=== PATIENT | female | born 1945 | race Caucasian/White ===

== ENCOUNTER 2019-11-27 10:21 | Outpatient (CLI) | payer OTHER, SELFPAY ==
--- NOTE | ~2019-11-27 | CT_ITS ---
EXAMINATION: CT brain wo con DATE: 11/27/2019 10:45 INDICATION: Dizziness. TECHNIQUE: Computed tomography (CT) of the head was performed without intravenous contrast. The mA wa s adjusted according to patient size. Iterative reconstruction technique was employed. The dose-lengt h product was 681.00 mGy-cm. COMPARISON: Head CT 05/07/2010 FINDINGS: There is an old lacunar infarct in left lentiform nucleus. There is no intracranial hemorrh age, acute infarction, or abnormal intracranial mass lesion. The ventricles are normal in size. There are likely changes of ocular lens replacement surgeries. There is mild mucosal thickening in the eth moid sinuses. The mastoid air cells are normal. IMPRESSION: 1. Old lacunar infarct in left lentiform nucleus. Reviewed, dictated and finalized at location B.
--- NOTE | ~2019-11-27 | US_ITS ---
EXAMINATION: US carotid duplex BI DATE: 11/27/2019 10:56 INDICATION: Right carotid bruit TECHNIQUE: Grayscale, color Doppler, and pulsed Doppler images of the cervical carotid arteries were obtained. The degree of vessel stenosis is placed in one of the following categories: normal, <50%, 5 0-69%, >=70% but less than near-occlusion, near-occlusion, or total occlusion. Note that percent sten osis relative to normal distal artery lumen diameter is indirectly measured from velocity measurement s as described by Mo, et al. Radiology 2003; [id number]:340-346. COMPARISON: 06/22/2018 FINDINGS: RIGHT: The right common carotid artery (CCA) peak systolic velocity (PSV) is 77 cm/s. The right internal car otid artery (ICA) PSV is 58 cm/s. The right ICA end-diastolic velocity (EDV) is 11 cm/s. The right IC A/CCA PSV ratio is 0.8. Grayscale and color Doppler images yield an estimate of <50% diameter reducti on from plaque in the ICA. The external carotid artery (ECA) PSV is 61 cm/s. There is antegrade flow in the right vertebral artery. LEFT: The left CCA PSV is 76 cm/s. The left ICA PSV is 58 cm/s. The left ICA EDV is 11 cm/s. The left ICA/C CA PSV ratio is 0.8. Grayscale and color Doppler images yield an estimate of <50% diameter reduction from plaque in the ICA. The ECA PSV is 49 cm/s. There is antegrade flow in the left vertebral artery. IMPRESSION: 1. <50% stenosis in the right internal carotid artery. 2. <50% stenosis in the left internal carotid artery. Reviewed, dictated and finalized at location A.
== END 2019-11-27 10:22 | disposition home or self-care (01) ==
LOC: CHSIMG 10:24
PROVIDERS: PCP Family Medicine; Visit Provider Family Medicine
DX: R42 Dizziness and giddiness (principal); R09.89 Other specified symptoms and signs involving the circulatory and respiratory systems
CPT/HCPCS: 70450; 93880

== ENCOUNTER 2019-11-28 08:55 | Outpatient (CLI) | payer OTHER, SELFPAY ==
--- NOTE | ~2019-11-28 | MR_ITS ---
EXAMINATION: MR brain IAC wo/w con DATE: 11/28/2019 10:22 INDICATION: Dizziness. Headache. TECHNIQUE: Magnetic resonance imaging (MRI) of the brain, brainstem, and internal auditory canals was performed without and with 10 mL MultiHance intravenous contrast. Sequences included sagittal and ax ial T1-weighted FSE, axial diffusion-weighted FS EPI, axial T2*-weighted GRE, axial T2-weighted FLAIR Propeller, and axial T2-weighted Propeller. Postcontrast sequences included axial and coronal T1-samir ghted FSE. Apparent diffusion coefficient (ADC) maps were created. COMPARISON: Head CT 11/27/2019 FINDINGS: There are scattered areas of nonspecific increased T2-weighted signal intensity in the cere bral white matter and ellyn, which is within normal limits for the patient's age. There is an old lacu angy infarct in left lentiform nucleus. There is no intracranial hemorrhage, acute infarction, or abno rmal intracranial mass lesion. The ventricles are normal in size. There are likely changes of ocular lens replacement surgeries. The paranasal sinuses are clear. The mastoid air cells are normal. IMPRESSION: 1. Old lacunar infarct in left lentiform nucleus. Reviewed, dictated and finalized at location B.
[2019-11-28 09:21] LABS: Estimated Glomerular Filt Rate > 60
== END 2019-11-28 08:56 | disposition home or self-care (01) ==
PROVIDERS: PCP Family Medicine; Visit Provider Family Medicine
DX: R42 Dizziness and giddiness (principal); R51 Headache
CPT/HCPCS: 36415; 70553; A9577

== ENCOUNTER 2020-01-12 09:00 | Outpatient (CLI) | payer OTHER, SELFPAY ==
--- NOTE | ~2020-01-12 | US_ITS ---
EXAMINATION: US pelvic complete DATE: 01/12/2020 09:50 INDICATION: Abdominal pain. Bloating. Ascites. TECHNIQUE: Multiple transabdominal sonographic images of the pelvis were obtained. COMPARISON: CT abdomen and pelvis 10/08/2014 FINDINGS: The uterus is absent, and the technologist reports history of hysterectomy. The ovaries are not visua lized. There is no ascites. IMPRESSION: 1. No ascites. 2. Ovaries not visualized. Reviewed, dictated and finalized at location B.
--- NOTE | ~2020-01-12 | US_ITS ---
US abdomen complete DATE: 01/12/2020 09:50 INDICATION: Abdominal pain, bloating. Ascites TECHNIQUE: Real-time imaging of the abdomen, Doppler evaluation COMPARISON: None FINDINGS: No hepatic or pancreatic space-occupying mass lesion is evident. Hepatic steatosis. Normal hepatopedal portal venous flow direction. There is an approximately 8 mm mobile filling defect the gallbladder consistent with stone or sludge concretion. No gallbladder wall thickening. The common bile duct measures 4 mm, within normal limits. The abdominal aorta is obscured by bowel gas. Inferior vena cava is not well demonstrated. Splenic size is within normal range. No renal mass lesion or hydronephrosis is detected. No ascites. IMPRESSION: Sludge concretion or gallstone Reviewed, dictated and finalized at Location A. Reviewed, dictated and finalized at location A.
== END 2020-01-12 09:01 | disposition home or self-care (01) ==
PROVIDERS: PCP Internal Medicine; Visit Provider Internal Medicine
DX: R10.84 Generalized abdominal pain (principal); R10.2 Pelvic and perineal pain
CPT/HCPCS: 76700; 76856

== ENCOUNTER 2020-01-18 08:18 | Outpatient (CLI) | payer OTHER, SELFPAY ==
--- NOTE | ~2020-01-18 | US_ITS ---
EXAMINATION: US venous doppler [facility] DATE: 01/18/2020 09:31 INDICATION: Left lower limb swelling TECHNIQUE: Gerber scale images without and with compression and Doppler images of the left lower extrem ity veins were obtained. COMPARISON: 10/17/2016 FINDINGS: The left common femoral vein, profunda femoral vein, femoral vein, popliteal vein, peroneal trunk, posterior tibial veins, and greater saphenous vein are patent. IMPRESSION: 1. Patent left lower extremity veins. No evidence of deep venous thrombosis. Reviewed, dictated and finalized at location A.
--- NOTE | ~2020-01-18 | XR_ITS ---
EXAMINATION: XR knee LT 3V DATE: 01/18/2020 09:02 INDICATION: Left knee pain. TECHNIQUE: AP, lateral and sunrise views of the left knee were obtained COMPARISON: None. FINDINGS: Alignment is normal. No fracture. Subtle chondrocalcinosis at the medial and lateral compartments. T here is mild joint space narrowing at the medial compartment. Small to moderate size marginal osteoph ytes without significant joint space narrowing at the patellofemoral compartment. Moderate-sized left knee joint effusion without layering lipohemarthrosis. Several surgical clips at the posterior media l aspect of the distal left thigh. Linear pattern of likely enthesopathic calcification extending reta ng the tendon at the femoral attachment of the medial head of the gastrocnemius. IMPRESSION: 1. Chondrocalcinosis with mild medial and patellofemoral osteoarthritis. No acute osseous abnormality . 2. Moderate-sized left knee joint effusion. Reviewed, dictated and finalized at location B. IMPRESSION: 1. Chondrocalcinosis with mild medial and patellofemoral osteoarthritis. No acu te osseous abnormality. 2. Moderate-sized left knee joint effusion.
== END 2020-01-18 08:19 | disposition home or self-care (01) ==
PROVIDERS: PCP Internal Medicine; Visit Provider Internal Medicine
DX: M79.89 Other specified soft tissue disorders (principal); M79.662 Pain in left lower leg; M25.562 Pain in left knee
CPT/HCPCS: 73562; 93971

== ENCOUNTER 2020-05-15 18:38 | Outpatient (CLI) | payer OTHER, SELFPAY ==
--- NOTE | ~2020-05-15 | XR_ITS ---
EXAMINATION: XR femur LT min 2V DATE: 05/15/2020 19:22 INDICATION: Chronic left hip and femoral pain. TECHNIQUE: Overlapping proximal and distal, AP and lateral views of the left femur were obtained. COMPARISON: None FINDINGS: Alignment is normal. No fracture. Minimal left hip osteoarthritis with tiny marginal osteophytes at the femoral head and acetabulum but with relatively preserved joint space. Moderate joint space narro wing the medial compartment of the left knee with small marginal osteophytes in all 3 compartments. I nterval decrease in size of a now small left knee joint effusion. Curvilinear pattern of likely enthe sopathic calcification extending along the tendon at the femoral insertion of the medial head of the gastrocnemius. Multiple surgical clips along the posterior medial aspect of the left thigh. IMPRESSION: 1. Mild to moderate medial compartment predominant tricompartmental osteoarthritis of the left knee w ith decrease in size of a now small left knee joint effusion. 2. Minimal left hip osteoarthritis. Reviewed, dictated and finalized at location A. 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 Mild to moderate medial compartment predominant tricompartmental osteoarthri tis of the left knee with decrease in size of a now small left knee joint effus ion. 2. Minimal left hip osteoarthritis.
== END 2020-05-15 18:39 | disposition home or self-care (01) ==
LOC: CHSIMG 18:40
PROVIDERS: PCP Internal Medicine; Visit Provider Internal Medicine
DX: M25.552 Pain in left hip (principal); M79.652 Pain in left thigh
CPT/HCPCS: 73552

== ENCOUNTER 2020-07-16 07:09 | Outpatient (CLI) | payer OTHER, SELFPAY ==
--- NOTE | ~2020-07-16 | CT_ITS ---
EXAMINATION: CT abdomen pelvis w con INDICATION: Diarrhea, diffuse abdominal pain TECHNIQUE: Computed tomographic images of the abdomen and pelvis were obtained after the administrati on of 100 cc of Omnipaque 350 intravenous contrast. The dose-length product (DLP) was 783.59 mGy-cm. Automated exposure control and iterative reconstruction technique were employed. COMPARISON: 10/08/2014 FINDINGS: Minimal dependent atelectasis is present in the lung bases. The heart size is enlarged. The re is a small sliding hiatal hernia. The gallbladder is surgically absent. There is mild enlargement of the common bile duct and central intrahepatic ducts which is likely due to post cholecystectomy st ate. The liver is diffusely low in attenuation when compared with the spleen, consistent with hepatic steatosis. The spleen, pancreas, and adrenal glands are normal. The kidneys are unremarkable. There is calcified atherosclerosis of the aorta and many of the other arteries. No pathologically enlarged abdominal or pelvic lymph nodes are identified. There is no free intraperitoneal gas or evidence of b owel obstruction. The appendix is normal. No specific bowel findings are identified to account for th e patient's symptoms. There is severe thoracic and lumbar spondylosis. There are changes of posterior fusion at L5-S1 with grade 1 anterolisthesis of L5 on S1. IMPRESSION: 1. No CT correlate for the patient's symptoms. Reviewed, dictated and finalized at location B.
== END 2020-07-16 07:10 | disposition home or self-care (01) ==
LOC: CHSIMG 07:10
PROVIDERS: PCP Internal Medicine; Visit Provider Internal Medicine
DX: R10.9 Unspecified abdominal pain (principal)
CPT/HCPCS: 74177; Q9967

== ENCOUNTER 2020-09-03 11:56 | Outpatient (CLI) | payer OTHER, SELFPAY ==
[2020-09-03 12:13] LABS: Basophils Absolute Auto 0.07 K/mm3 (0.00-0.10); Eosinophils Absolute Auto 0.18 K/mm3 (0.02-0.50); Eosinophils Percent Auto 2.5 % (1.0-6.0); Hematocrit 44.8 % (35.0-42.0); Hemoglobin 14.6 g/dL (11.7-13.8); Immature Granulocyte Absolute 0.02 K/mm3 (0.00-0.00); Immature Granulocyte Percent A 0.3 % (0.0-0.0); Lymphocytes Absolute Auto 1.74 K/mm3 (1.10-4.50); Lymphocytes Percent Auto 24.2 % (18.0-42.0); Mean Corpuscular HGB Conc 32.6 g/dL (32.0-36.0); Mean Corpuscular Volume 95.1 fL (78.0-102.0); Mean Platelet Volume 11.3 fl (9.2-11.8); Monocytes Absolute Auto 0.67 K/mm3 (0.10-0.90); Monocytes Percent Auto 9.3 % (2.0-11.0); Neutrophils Absolute Auto 4.5 K/mm3 (1.7-7.2); Neutrophils Percent Auto 62.7 % (50.0-70.0); Platelet Count Result 243 K/mm3 (150-420); Red Blood Count 4.71 M/mm3 (4.20-5.40); White Blood Count 7.2 K/mm3 (4.8-10.8)
[2020-09-03 12:27] LABS: Add Urine Microscopic? YES; Appearance Urine Clear (Clear); Bilirubin Urine Negative (Negative); Blood Urine Negative (Negative); Color Urine Yellow (Yellow); Glucose Urine UA Negative (Negative); Ketones Urine Negative (Negative); Leukocyte Esterase Ur 1+ (Negative); Nitrate Urine Negative (Negative); Protein Urine Negative (Negative); Specific Grav Ur 1.025 (1.010-1.020); Urobilinogen Urine 0.2 mg/dL (0.2-1.0); pH Urine 5.5 (5.0-8.0)
[2020-09-03 12:35] LABS: RBC Urine None seen /hpf (0-2); Squamous Epithelial Cell Urine Few /hpf (Few)
[2020-09-03 12:36] LABS: Bacteria Urine Trace /hpf
[2020-09-03 12:49] LABS: Hemoglobin A1C 8.9 % (<5.7)
[2020-09-03 13:07] LABS: Alanine Aminotransferase 24 U/L (14-59); Albumin Level 3.6 g/dL (3.4-5.0); Alkaline Phosphatase 61 U/L (46-116); Amylase 80 U/L (25-115); Anion Gap 7 mmol/L (8-16); Aspartate Amino Transferase 17 U/L (15-37); Bilirubin,Total 0.3 mg/dL (0.00-1.00); Blood Urea Nitrogen 40 mg/dL (7-18); Calcium 9.2 mg/dL (8.5-10.1); Carbon Dioxide 29 mmol/L (21-32); Chloride 103 mmol/L (98-108); Estimated Glomerular Filt Rate 44; Glucose 100 mg/dL (70-99); Lipase 187 U/L (73-393); Osmolality Calculated 297 mOsm/kg (285-295); Potassium 4.9 mmol/L (3.5-5.1); Sodium 139 mmol/L (136-145); Total Protein 6.7 g/dL (6.4-8.2)
== END 2020-09-03 11:57 | disposition home or self-care (01) ==
LOC: CHSLAB 11:57
PROVIDERS: PCP Internal Medicine; Visit Provider Internal Medicine
DX: N39.0 Urinary tract infection, site not specified (principal); R53.83 Other fatigue; R11.0 Nausea; E11.9 Type 2 diabetes mellitus without complications
CPT/HCPCS: 36415; 80053; 81001; 82150; 83036; 83690; 85025; 87086; 87088

== ENCOUNTER 2020-09-06 09:40 | Outpatient (CLI) | payer OTHER, SELFPAY ==
[2020-09-06 09:59] LABS: Add Urine Microscopic? NO; Appearance Urine Clear (Clear); Bilirubin Urine Negative (Negative); Blood Urine Negative (Negative); Color Urine Yellow (Yellow); Glucose Urine UA Negative (Negative); Ketones Urine Negative (Negative); Leukocyte Esterase Ur Negative (Negative); Nitrate Urine Negative (Negative); Protein Urine Negative (Negative); Specific Grav Ur >= 1.030 (1.010-1.020); Urobilinogen Urine 0.2 mg/dL (0.2-1.0); pH Urine 5.5 (5.0-8.0)
[2020-09-06 10:30] LABS: Anion Gap 10 mmol/L (8-16); Blood Urea Nitrogen 22 mg/dL (7-18); Calcium 8.8 mg/dL (8.5-10.1); Carbon Dioxide 25 mmol/L (21-32); Chloride 104 mmol/L (98-108); Estimated Glomerular Filt Rate > 60; Glucose 148 mg/dL (70-99); Osmolality Calculated 294 mOsm/kg (285-295); Sodium 139 mmol/L (136-145)
[2020-09-06 10:31] LABS: Potassium 5.4 mmol/L (3.5-5.1)
== END 2020-09-06 09:41 | disposition home or self-care (01) ==
LOC: CHSLAB 09:42
PROVIDERS: PCP Internal Medicine; Visit Provider Internal Medicine
DX: E86.0 Dehydration (principal); N39.0 Urinary tract infection, site not specified
CPT/HCPCS: 36415; 80048; 81003; 87086

== ENCOUNTER → 2020-09-30 16:08 | Outpatient (CLI) | payer OTHER, SELFPAY ==
--- NOTE | ~2020-09-30 | MM_ITS ---
EXAMINATION: MM screening [facility] BI w edmund HISTORY: Screening TECHNIQUE: Craniocaudal and mediolateral oblique 3-D tomosynthesis images were obtained and synthetic 2-D images were generated. CAD analysis was submitted and interpreted. COMPARISON: Comparison to multiple prior studies sequentially, with oldest reviewed study dated 07/2011. BREAST PARENCHYMAL COMPOSITION: There are scattered areas of fibroglandular density. FINDINGS: There is no evidence of suspicious mass, calcification, or architectural distortion to sugg est malignancy in either breast. There has been no suspicious interval change. IMPRESSION: 1. No mammographic evidence of malignancy. 2. Recommend routine screening mammography in one year. BI-RADS Category 1: Negative Reviewed, dictated and finalized at location A.
== END ==
PROVIDERS: Visit Provider Obstetrics & Gynecology
DX: Z12.31 Encounter for screening mammogram for malignant neoplasm of breast (principal)
CPT/HCPCS: 77063; 77067

== ENCOUNTER 2021-03-21 11:34 | Outpatient (CLI) | payer OTHER, SELFPAY ==
--- NOTE | ~2021-03-21 | XR_ITS ---
XR hip BI 2V w AP pelvis DATE: 03/21/2021 11:59 INDICATION: Fall. Bilateral hip pain, lower back pain. Coccyx injury. TECHNIQUE: AP pelvis. AP and lateral views of each hip COMPARISON: None FINDINGS: Pedicle screws are noted bilaterally in the L5-S1 area, including fractured mildly displace d right L1 pedicle screw. The pubic symphysis and sacroiliac joints are intact. There is bilateral hip osteoarthritis, greater on the right. No pelvic fracture is detected. No bone destruction is evident. There is chondrocalcinosis at the right hip joint. No fracture or dislocation, avascular necrosis or bone destruction of either hip is detected. IMPRESSION: Status post bilateral posterior fusion at L5-S1; fractured right S1 pedicle screw Bilateral hip osteoarthritis, right greater than left Chondrocalcinosis of right hip joint No pelvic fracture or fracture or dislocation of either hip Reviewed, dictated and finalized at location A. 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
== END 2021-03-21 11:35 | disposition home or self-care (01) ==
LOC: CHSIMG 11:36
PROVIDERS: PCP Internal Medicine; Visit Provider Nurse Practitioner Family
DX: M54.50 Low back pain, unspecified (principal); M25.552 Pain in left hip; M25.551 Pain in right hip; S39.92XA Unspecified injury of lower back, initial encounter
CPT/HCPCS: 73521

== ENCOUNTER 2021-04-18 10:53 | Outpatient (CLI) | payer OTHER, SELFPAY ==
--- NOTE | ~2021-04-18 | US_ITS ---
EXAMINATION: US venous doppler [facility] EXAM DATE: 04/18/2021 11:18 INDICATION: Left leg edema/pain . TECHNIQUE: Multiple grayscale, color flow and Doppler images of the left lower extremity deep venous system were obtained and reviewed. Comparison is made to prior examination from 01/18/2020. FINDINGS: The left common femoral, femoral and profunda veins demonstrate normal color flow, respirat ory variation, augmentation and compressibility. Compressibility, color flow confirmed within the le ft popliteal, posterior tibial, peroneal, and greater saphenous veins. Anechoic popliteal fossa sharee on without color flow, probably a Adamson's cyst measuring 2.9 x 1.0 x 2.6 cm. IMPRESSION: 1. No left lower extremity deep venous thrombosis. 2. Probable small Adamson's cyst. Reviewed, dictated and finalized at location A. PRACTITIONER
== END 2021-04-18 10:54 | disposition home or self-care (01) ==
LOC: CHSIMG 10:55
PROVIDERS: PCP Internal Medicine; Visit Provider Internal Medicine
DX: R60.9 Edema, unspecified (principal); M79.605 Pain in left leg
CPT/HCPCS: 93971

== ENCOUNTER → 2021-06-13 14:19 | Outpatient (CLI) | payer OTHER, SELFPAY ==
--- NOTE | ~2021-06-13 | MM_ITS ---
EXAMINATION: MM diagnostic [facility] LT w edmund HISTORY: Left breast pain TECHNIQUE: Additional 3-D tomosynthesis images of the left breast were performed and synthetic 2-D im ages were generated. CAD analysis was submitted and interpreted. COMPARISON: Comparison to multiple prior studies sequentially, with oldest reviewed study dated 02/03. BREAST PARENCHYMAL COMPOSITION: Breast composed of scattered areas of fibroglandular density. FINDINGS: There are no suspicious masses, calcifications or architectural distortion to suggest malig viji. IMPRESSION: 1. No mammographic evidence for malignancy in the left breast. 2. Routine yearly screening mammogram and regular clinical breast examination are recommended. BI-RADS Category 1: Negative Reviewed, dictated and finalized at location A. 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 No mammographic evidence for malignancy in the left breast. 2. Routine yearly screening mammogram and regular clinical breast examination a re recommended. BI-RADS Category 1: Negative
== END ==
PROVIDERS: Visit Provider Obstetrics & Gynecology
DX: N64.4 Mastodynia (principal)
CPT/HCPCS: 77061; 77065; G0279

== ENCOUNTER 2021-07-16 06:35 | Emergency (ER) | payer OTHER, SELFPAY ==
--- NOTE | ~2021-07-16 | CT_ITS ---
EXAMINATION: CT lumbar spine wo con DATE: 07/16/2021 07:42 INDICATION: Left buttock pain radiating to the left hip and leg TECHNIQUE: Computed tomography (CT) of the lumbar spine was performed without intravenous contrast. T he dose-length product (DLP) was 1443.62 mGy-cm. Iterative reconstruction was used. COMPARISON: 07/16/2020 FINDINGS: There are changes of posterior fusion at L5-S1 with 10 mm of unchanged anterolisthesis of L 5 on S1. The right S1 screw is fractured. There are also 5 mm of unchanged anterolisthesis of L4 on L 5. There is unchanged severe loss of intervertebral disc space height at L5-S1 and moderate loss of d isc space height throughout the remainder of the lumbar spine. The vertebral body heights are maintai aydee. There is sclerosis at the S3 and S4 levels. IMPRESSION: 1. Severe lumbar spondylosis. 2. Sclerosis at the level of S3 and S4 suggestive of healing fracture. Correlate for history of traum a. Reviewed, dictated and finalized at location A. IMPRESSION: 1. Severe lumbar spondylosis. 2. Sclerosis at the level of S3 and S4 suggestive of healing fracture. Correlat e for history of trauma.
[2021-07-16 07:06] VITALS: BP 140/43; PULSE 61; RESP 20; TEMP 36.8; O2SAT 92
--- NOTE | 2021-07-16 07:18 | PC.NURSE ---
nurse to nurse report to KAYDEN Hernandez
--- NOTE | 2021-07-16 07:29 | ED.BACK ---
HPI - Back Pain/Injury General Chief Complaint: Back Pain/Injury Stated Complaint: L SIDED PAIN Time Seen by Provider: 07/16/21 07:03 Source: patient, RN notes reviewed and old records reviewed Mode of arrival: ambulatory Limitations: no limitations History of Present Illness MD elicited complaint: back pain Pertinent past history: prior back pain and other (and sciatic nerve problem in the past.) Onset (ago): hour(s) (12) Severity: severe Pain scale (0-10): 10 Similar Symptoms Previously: No Quality: dull and aching Location: lumbar spine and left lower back Radiation: groin and buttocks Exacerbating factors: movement Relieving factors: immobilization Associated symptoms: denies other symptoms Treatments prior to arrival: other medications Related Data Home Medications Medication Instructions Recorded Confirmed aspirin 81 mg PO DAILY 07/16/21 07/16/21 calcitriol 0.5 mcg PO DAILY 07/16/21 07/16/21 carvedilol 25 mg PO BID 07/16/21 07/16/21 coenzyme Q10 25 mg PO DAILY 07/16/21 07/16/21 enalapril maleate 10 mg PO DAILY 07/16/21 07/16/21 gabapentin 300 mg PO TID 07/16/21 07/16/21 insulin aspart U-100 [Novolog 20 unit SUBCUT DIRECTED 07/16/21 07/16/21 Flexpen U-100 Insulin] insulin detemir U-100 [Levemir 50 unit SUBCUT HS 07/16/21 07/16/21 FlexTouch U-100 Insuln] pantoprazole 40 mg PO DAILY 07/16/21 07/16/21 rosuvastatin 10 mg PO DAILY 07/16/21 07/16/21 Allergies Allergy/AdvReac Type Severity Reaction Status Date / Time empagliflozin Allergy Unknown Verified 11/30/19 09:24 Review of Systems Review of Systems: All systems reviewed & are unremarkable except as noted in HPI and below PMFSH Past Medical History Medical History 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 Surgical History Surgical History Previous back surgery Social History Social History Smoking status: Former smoker Alcohol intake: never Exam Const: General: no acute distress and alert Nutritional Appearance: well nourished Orientation/consciousness: patient oriented x3 Limitations: no limitations HENMT: Head: normal to inspection Ears: external ears normal, TM's normal bilaterally and EAC's normal General nose exam: Normal external nose present and Normal nares present Face and sinus: normal facial exam and sinuses nontender Mouth: Yes lip normal and Yes moist mucous membranes Eyes: Conjunctivae: conjunctivae normal Pupils: Equal, round and reactive pupils present EOM: EOMs intact bilaterally Neck: Neck: normal visual inspection and no lymphadenopathy Chest: Chest palpation & inspection: normal inspection of the chest Resp: Effort & Inspection: normal respiratory effort Auscultation: clear to auscultation bilaterally Cardio: Rate: regular rate Rhythm: regular rhythm GI: GI Palp: Yes Soft to palpation and No Tenderness to palpation present (GI) Auscultation: normal bowel sounds : General: Yes bladder normal to palpation and Yes no CVA tenderness Back/Spine/Pelvis: Back: no CVA tenderness Skin: General skin exam: normal color Rashes: no rashes Neuro: General: patient oriented x3, moves all extremities, no meningeal signs, no focal motor deficits and CN's II-XI intact bilaterally Extrem: General: normal to inspection and no pedal edema Other: minimally tender left upper and lateral buttock on deep palpation. Psych: Appearance: grossly normal and well kempt Mental Status: mental status grossly normal Affect: normal affect Attitude: cooperative Thought content: Yes Normal thought content present Course Course Emergency Course: pt was stable in the ED. less painful. Reevaluation(s) Date: 07/16/21 Time: 08:01 Vital Signs Vital signs: Vital Signs Temperature 36.8 C 07/16/21 07:06 Pulse Rate 61 07/16/21 07:06 Respira
[2021-07-16] MEDS: KETOROLAC (*BKC) 60 MG/2 ML VIAL IM (07:32)
[2021-07-16 08:00] LABS: Appearance Urine Clear (Clear); Bilirubin Urine Negative (Negative); Color Urine Light Yellow (Yellow); Glucose Urine UA Trace (Negative); Ketones Urine Negative (Negative); Leukocyte Esterase Ur Negative (Negative); Nitrate Urine Negative (Negative); Protein Urine Negative (Negative); Specific Grav Ur >= 1.030 (1.010-1.020); Urobilinogen Urine 0.2 mg/dL (0.2-1.0)
[2021-07-16 08:06] LABS: Add Urine Microscopic? YES; Blood Urine Trace-Intact (Negative)
[2021-07-16 08:07] LABS: Bacteria Urine None seen /hpf; RBC Urine 0-2 /hpf (0-2); Squamous Epithelial Cell Urine Rare /hpf (Few); WBC Urine 0-3 /hpf (0-3)
[2021-07-16 08:08] LABS: Mucus Urine Few /lpf
[2021-07-16 08:35] VITALS: BP 136/49; PULSE 56; RESP 20; TEMP 36.6; O2SAT 96
== END 2021-07-16 08:54 | disposition home or self-care (01) ==
PROVIDERS: Emergency Medicine; Emergency Provider Internal Medicine Critical Care Medicine; PCP Internal Medicine
DX: M54.32 Sciatica, left side (principal)
CPT/HCPCS: 72131; 81001; 96372; 99284; J1885

== ENCOUNTER 2021-11-11 14:03 | Outpatient (CLI) | payer OTHER, SELFPAY ==
--- NOTE | ~2021-11-11 | XR_ITS ---
XR pelvis 1-2V DATE: 11/11/2021 14:42 INDICATION: Lower back pain, tailbone pain, pelvic pain. TECHNIQUE: AP pelvis COMPARISON: 03/21/[address] bilateral hips [address] abdomen pelvis FINDINGS: Pedicle screws are noted bilaterally at L5-S1, with chronic fracture of right S1 pedicle sc rew. Severe degenerative disease at L5-S1. Anterolisthesis at L4-5 and L5-S1 demonstrate on 07/16/2020 CT abdomen pelvis examination. No pelvic fracture or bone destruction. The pubic symphysis and sacroiliac joints are intact. IMPRESSION: No pelvic fracture detected Chronic postoperative change at L5-S1 with chronic right S1 pedicle screw fracture L4-5 and L5-S1 anterolisthesis and degenerative disc disease Reviewed, dictated and finalized at location B. IMPRESSION: No pelvic fracture detected Chronic postoperative change at L5-S1 with chronic right S1 pedicle screw fract ure L4-5 and L5-S1 anterolisthesis and degenerative disc disease
== END 2021-11-11 14:04 | disposition home or self-care (01) ==
LOC: CHSIMG 14:05
PROVIDERS: PCP Internal Medicine; Visit Provider Nurse Practitioner Family
DX: M54.50 Low back pain, unspecified (principal); R10.2 Pelvic and perineal pain; M53.3 Sacrococcygeal disorders, not elsewhere classified
CPT/HCPCS: 72170

== ENCOUNTER → 2021-12-15 15:41 | Outpatient (CLI) | payer OTHER, SELFPAY ==
--- NOTE | ~2021-12-15 | MM_ITS ---
EXAMINATION: MM screening [facility] BI w edmund HISTORY: Screening mammogram TECHNIQUE: Craniocaudal and mediolateral oblique 3-D tomosynthesis images were obtained and synthetic 2-D images were generated. CAD analysis was submitted and interpreted. COMPARISON: 06/13/2021 diagnostic left mammogram 09/30/2020, 02/24/2017 bilateral screening mammogram examinations BREAST PARENCHYMAL COMPOSITION: The breasts are almost entirely fatty. FINDINGS: There is no evidence of suspicious mass, calcification, or architectural distortion to sugg est malignancy in either breast. There has been no suspicious interval change. IMPRESSION: 1. No mammographic evidence of malignancy. 2. Recommend routine screening mammography in one year. BI-RADS Category 1: Negative Reviewed, dictated and finalized at location A.
== END ==
PROVIDERS: PCP Internal Medicine; Visit Provider Obstetrics & Gynecology
DX: Z12.31 Encounter for screening mammogram for malignant neoplasm of breast (principal)
CPT/HCPCS: 77063; 77067

== ENCOUNTER 2022-01-31 08:34 | Outpatient (CLI) | payer OTHER, SELFPAY ==
--- NOTE | ~2022-01-31 | MR_ITS ---
EXAMINATION: MR lumbar spine wo con DATE: 01/31/2022 09:38 INDICATION: Low back pain. Fall. TECHNIQUE: Magnetic resonance imaging (MRI) of the lumbar spine was performed without intravenous con trast. COMPARISON: CT lumbar spine 07/16/2021 FINDINGS: There is 9 degrees levocurvature of thoracolumbar spine. There is 4 mm anterolisthesis of L 4 on L5 and 7 mm anterolisthesis of L5 on S1. There are changes of posterior fusion procedure at L5-S 1 with pedicle screws. Vertebral body heights are normal. There is moderately decreased disc height a t L1-L2 and L2-L3, mildly decreased disc height at L3-L4 and L4-L5, and severely decreased disc heigh t at L5-S1. There is mild chronic height loss of L5 vertebral body posteriorly. The following disc le vels are specifically discussed: L1-L2: The disc is bulging. There is mild bilateral facet joint osteoarthritis. There is mild bilater al neural foraminal stenosis. There is mild central canal stenosis. L2-L3: The disc is bulging. There is moderate right and mild left facet joint osteoarthritis. There i s mild bilateral neural foraminal stenosis. There is mild central canal stenosis. L3-L4: The disc is bulging. There is moderate bilateral facet joint osteoarthritis. There is mild esdras ateral neural foraminal stenosis. There is mild central canal stenosis. L4-L5: The disc is bulging. There is severe bilateral facet joint osteoarthritis. There is mild bilat eral neural foraminal stenosis. There is mild central canal stenosis. L5-S1: The disc does not extend beyond the endplate margin. There is moderate bilateral facet joint h ypertrophy. There is mild right and moderate left neural foraminal stenosis. There is no central martir l stenosis. IMPRESSION: 1. Stable severe lumbar spondylosis. 2. Posterior fusion procedure at L5-S1. Reviewed, dictated and finalized at location A.
== END 2022-01-31 08:35 | disposition home or self-care (01) ==
LOC: CHSIMG 08:35
PROVIDERS: PCP Internal Medicine; Visit Provider Internal Medicine
DX: M54.50 Low back pain, unspecified (principal)
CPT/HCPCS: 72148

== ENCOUNTER 2022-08-22 20:08 | Emergency (ER) | payer OTHER, SELFPAY ==
[2022-08-22] VITALS (11 sets, daily range): BP systolic 127–160; BP diastolic 51–64; PULSE 65–78; RESP 14–18; TEMP 36; O2SAT 92–95
--- NOTE | ~2022-08-22 | XR_ITS ---
EXAMINATION: XR chest 1V portable Exam Date/Time: 08/22/2022 20:50 CDT HISTORY: weakness WITH DIFFICULTY HAVING BOWEL MOVEMENT Comparison: 10/15/2016. RESULT: Lines, tubes, and devices: Surgical clips in the mediastinum and left upper quadrant. Median sternot vernon wires. The inferior wire appears to be fractured but is grossly stable in position. Lungs and pleura: Streaky bibasilar scar/atelectasis, otherwise clear. Cardiomediastinal silhouette: Stable. Other: No acute osseous or upper abdominal finding. IMPRESSION: No acute cardiopulmonary process. Reviewed, dictated and finalized at location K.
[2022-08-22] MEDS: ONDANSETRON INJ 4 MG/2 ML VIAL IV PUSH (21:33)
[2022-08-22] MEDS: SODIUM CHLORIDE 0.9% IV 1,000 ML 999 ML IV CONT (21:33)
[2022-08-22 21:36] LABS: Basophils Absolute Auto 0.1 K/mm3 (0.0-0.1); Basophils Percent Auto 0.4 % (0.2-1.2); Eosinophils Absolute Auto 0.4 K/mm3 (0-0.3); Eosinophils Percent Auto 2.8 % (0-4.4); Hematocrit 40.9 % (37.0-47.0); Hemoglobin 13.4 g/dL (12.0-15.0); Immature Granulocyte Absolute 0.03 K/mm3 (0.00-0.031); Immature Granulocyte Percent A 0.2 % (0-0.5); Lymphocytes Percent Auto 4.6 % (18.3-44.2); Mean Corpuscular HGB Conc 32.8 g/dl (32-36); Mean Corpuscular Hemoglobin 31.8 pg (26-34); Mean Corpuscular Volume 96.9 fl (80-100); Mean Platelet Volume 11.3 fl (7.4-10.4); Monocytes Absolute Auto 1.1 K/mm3 (0.1-0.6); Monocytes Percent Auto 8.2 % (2.6-8.5); Neutrophils Absolute Auto 10.9 K/mm3 (1.3-6.7); Neutrophils Percent Auto 83.8 % (45.5-73.1); Platelet Count Result 238 k/mm3 (150-375); Red Blood Count 4.22 M/mm3 (4.2-5.4); Red Cell Distribution Width 12.7 % (11.5-14.5)
[2022-08-22 21:45] LABS: Magnesium 1.4 mg/dL (1.6-2.3)
[2022-08-22 21:46] LABS: Alanine Aminotransferase 21 U/L (6-35); Albumin Level 4.5 g/dL (3.5-5.1); Alkaline Phosphatase 60 U/L (38-126); Anion Gap 9 mmol/L (8-16); Aspartate Amino Transferase 22 U/L (14-36); Bilirubin,Total 0.9 mg/dL (0.2-1.3); Blood Urea Nitrogen 20 mg/dL (7-17); Calcium 9.6 mg/dL (8.4-10.2); Carbon Dioxide 30 mmol/L (22-30); Chloride 98 mmol/L (98-107); Estimated CRCL calculation 60 ml/min; Estimated Glomerular Filt Rate > 60; Glucose 316 mg/dL (65-110); Lactic Acid Reflex 1.7 mmol/L (0.7-2.0); Lipase 68 U/L (23-300); Potassium 4.4 mmol/L (3.4-5.0); Sodium 137 mmol/L (137-145)
[2022-08-22 21:57] LABS: Troponin I < 0.012 ng/mL (0.000-0.034)
[2022-08-22] MEDS: MAGNESIUM SULF 2 GM/WATER 50ML 2 GM/50 ML BAG IVPB (22:15)
--- NOTE | 2022-08-22 23:38 | ED.GENADULT ---
HPI - General Adult General Chief complaint: Nausea/Vomiting/Diarrhea Stated complaint: weakness/n/v Time Seen by Provider: 08/22/22 20:11 History of Present Illness HPI narrative: Patient 77-year-old female who presents emergency department with chief complaint of nausea and vomiting. Patient reports that this evening she started having episodes of nausea and vomiting and recently was in the hospital and had placement of her left knee at [facility]. Patient denies fever denies chest pain denies shortness of breath denies localizing abdominal pain. Patient reports she has been constipated but did have a bowel movement prior to coming to the emergency department. Related Data Home Medications Medication Instructions Recorded Confirmed aspirin 81 mg capsule 81 mg PO DAILY 07/16/21 05/29/22 calcitriol 0.5 mcg capsule 0.5 mcg PO DAILY 07/16/21 05/29/22 carvedilol 25 mg tablet 25 mg PO BID 07/16/21 05/29/22 coenzyme Q10 25 mg tablet 25 mg PO DAILY 07/16/21 05/29/22 enalapril maleate 10 mg tablet 10 mg PO DAILY 07/16/21 05/29/22 gabapentin 300 mg capsule 300 mg PO TID 07/16/21 05/29/22 pantoprazole 40 mg tablet,delayed 40 mg PO DAILY 07/16/21 05/29/22 release rosuvastatin 10 mg tablet 10 mg PO DAILY 07/16/21 05/29/22 insulin aspart U-100 100 unit/mL 25 unit subcut DIRECTED 05/29/22 05/29/22 (3 mL) subcutaneous pen (Novolog FlexPen U-100 Insulin aspart) Allergies Allergy/AdvReac Type Severity Reaction Status Date / Time No Known Allergies Allergy Verified 08/22/22 20:14 Review of Systems Review of Systems: A 10 system review of systems was completed on the patient and is negative except for what is stated in the HPI. Nursing and ancillary documentation was reviewed. 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 Varicose veins of left leg with edema Surgical History Surgical History History of vein stripping Hx of CABG CABG twice Previous back surgery S/P RADHA-BSO (total abdominal hysterectomy and bilateral salpingo-oophorectomy) Family History Family History Mother History of stroke Other Diabetes mellitus Social History Social History Social History: Smoking status: Former smoker Alcohol intake: never Substance use: never Substance use type: does not use Lack of Transportation: No Lack of Food: Never True Current Housing: I Have Housing Concerned About Future Housing: No Difficulty Paying Gas/Electric Bills: No Difficulty Paying for Meds: No Currently Unemployed: No Education: High School Diploma/GED Difficulty w/ Childcare or Family Care: No Living arrangements: with family Occupation/Education: retired Gender identity (if verbalized by the patient): Female Sexual Orientation (if Verbalized by the Patient): Straight or Heterosexual Spiritual care concerns: No Agree to blood products: Yes Exam Narrative: GENERAL: Well-appearing, well-nourished, and in no acute distress. HEAD: Normocephalic, atraumatic. EYES: PERRLA and EOMI. ENT: Nares clear, no rhinorrhea or epistaxis. Mucous membranes moist. NECK: Supple. CHEST: Clear to auscultation. No respiratory distress. HEART: Regular rate and rhythm. No murmur heard. Normal peripheral pulses. ABDOMEN: Soft, nontender, nondistended, normal active bowel sounds. EXTREMITIES: Normal range of motion. No edema. SKIN:
[2022-08-22 23:50] LABS: Troponin I < 0.012 ng/mL (0.000-0.034)
[2022-08-22 23:58] LABS: Appearance Urine Clear (Clear); Bacteria Urine None Seen /hpf; Bilirubin Urine Negative (Negative); Blood Urine Negative (Negative); Color Urine Yellow (Yellow); Glucose Urine UA 3+ mg/dL (Negative); Ketones Urine 1+ mg/dL (Negative); Leukocyte Esterase Ur Negative LEU/UL (Negative); Need Manual Microscopic Reviewed; Nitrate Urine Negative (Negative); Protein Urine 1+ mg/dL (Negative); RBC Urine 0-2 /hpf (0-2); Specific Grav Ur 1.025 (1.001-1.035); Squamous Epithelial Cell Urine None seen /hpf (Few)
[2022-08-23] LABS: Add Urine Microscopic? YES
== END 2022-08-23 00:15 | disposition home or self-care (01) ==
PROVIDERS: Emergency Provider Emergency Medicine; PCP Family Medicine
DX: N39.0 Urinary tract infection, site not specified (principal); E83.42 Hypomagnesemia; R11.2 Nausea with vomiting, unspecified; I10 Essential (primary) hypertension; I25.10 Atherosclerotic heart disease of native coronary artery without angina pectoris; I25.5 Ischemic cardiomyopathy; I25.2 Old myocardial infarction; E11.319 Type 2 diabetes mellitus with unspecified diabetic retinopathy without macular edema; E11.40 Type 2 diabetes mellitus with diabetic neuropathy, unspecified; E78.5 Hyperlipidemia, unspecified; Z95.1 Presence of aortocoronary bypass graft; Z87.891 Personal history of nicotine dependence; Z79.82 Long term (current) use of aspirin; Z79.4 Long term (current) use of insulin
CPT/HCPCS: 36415; 71045; 80053; 81001; 83605; 83690; 83735; 84484; 85025; 87077; 87086; 87186; 96361; 96365; 96375; 99284; J2405; J3475; J7030

== ENCOUNTER 2023-02-18 21:38 | Emergency (ER) | payer OTHER, SELFPAY ==
--- NOTE | ~2023-02-18 | XR_ITS ---
EXAMINATION: XR tibia fibula RT 2V DATE: 02/18/2023 22:20 INDICATION: Posterior lower leg wound TECHNIQUE: AP and lateral views of the right tibia and fibula were obtained. COMPARISON: None. FINDINGS: Bone alignment is normal. No fracture. Mild tricompartmental osteoarthritis at the right knee. There are a few surgical clips at the medial side of the proximal right calf. There few phleboliths in the distal calf. No soft tissue gas or radiopaque foreign bodies. No ankle joint effusion. IMPRESSION: 1. No acute osseous abnormality, soft tissue gas or radiopaque foreign bodies. Reviewed, dictated and finalized at location A. BUILDING
[2023-02-18 21:44] VITALS: BP 133/65; PULSE 56; TEMP 36.8; O2SAT 91
[2023-02-18 21:51] VITALS: RESP 18
[2023-02-18] MEDS: KETOROLAC 30 MG/ML VIAL (*BKC) IM (22:14)
[2023-02-18 22:18] LABS: Basophils Absolute Auto 0.04 K/mm3 (0.00-0.10); Basophils Percent Auto 0.5 % (0.0-1.0); Eosinophils Absolute Auto 0.25 K/mm3 (0.02-0.50); Eosinophils Percent Auto 3.1 % (1.0-6.0); Hemoglobin 12.8 g/dL (11.7-13.8); Immature Granulocyte Absolute 0.02 K/mm3 (0.00-0.00); Immature Granulocyte Percent A 0.2 % (0.0-0.0); Lymphocytes Absolute Auto 1.53 K/mm3 (1.10-4.50); Lymphocytes Percent Auto 19.1 % (18.0-42.0); Mean Corpuscular HGB Conc 32.8 g/dL (32.0-36.0); Mean Corpuscular Hemoglobin 31.2 pg (27.0-31.0); Mean Corpuscular Volume 95.1 fL (78.0-102.0); Mean Platelet Volume 11.1 fl (9.2-11.8); Monocytes Absolute Auto 0.95 K/mm3 (0.10-0.90); Monocytes Percent Auto 11.8 % (2.0-11.0); Neutrophils Absolute Auto 5.2 K/mm3 (1.7-7.2); Neutrophils Percent Auto 65.3 % (50.0-70.0); Platelet Count Result 212 K/mm3 (150-420); Red Cell Distribution Width 12.4 % (11.6-14.4)
[2023-02-18 22:34] LABS: Alanine Aminotransferase 22 U/L (14-59); Albumin Level 3.4 g/dL (3.4-5.0); Alkaline Phosphatase 63 U/L (46-116); Anion Gap 8 mmol/L (8-16); Aspartate Amino Transferase 15 U/L (15-37); Bilirubin,Total 0.3 mg/dL (0.00-1.00); Blood Urea Nitrogen 25 mg/dL (7-18); Calcium 9.5 mg/dL (8.5-10.1); Carbon Dioxide 29 mmol/L (21-32); Chloride 104 mmol/L (98-108); Estimated CRCL calculation 41 ml/min; Estimated Glomerular Filt Rate 53; Glucose 108 mg/dL (70-99); Osmolality Calculated 297 mOsm/kg (285-295); Potassium 3.6 mmol/L (3.5-5.1); Sodium 141 mmol/L (136-145); Total Protein 7.1 g/dL (6.4-8.2)
--- NOTE | 2023-02-18 22:38 | ED.WOUNDLAC ---
HPI - Wound/Laceration General Chief Complaint: Wound/Laceration Stated Complaint: leg infection Time Seen by Provider: 02/18/23 21:44 Source: patient Mode of arrival: ambulatory Limitations: no limitations History of Present Illness HPI narrative: this is a 77-year-old female with history of CHF diabetes presents with a red patch on her right posterior lower leg that occurred approximately 1 week ago after she fell and a door hit the back of her leg causing pain, patient has been using a bandage on the area which has caused some inflammation and erythema. The area is warm a patch approximately 4x4, that is warm and tender to touch. Currently there is no fever chills no nausea vomiting abdominal pain no diarrhea constipation can move her leg and foot with no numbness or tingling. Onset (ago): week(s) Location: other Extremity Location: Right: lower leg ( pain with an area of erythema) Place: home Context: accidental Related Data Home Medications Medication Instructions Recorded Confirmed calcitriol 0.5 mcg capsule 0.5 mcg PO DAILY 02/18/23 02/18/23 carvedilol 25 mg tablet 25 mg PO BID 02/18/23 02/18/23 coenzyme Q10 100 mg capsule 200 mg PO DAILY 02/18/23 02/18/23 (CoQ-10) enalapril maleate 10 mg tablet 10 mg PO DAILY 02/18/23 02/18/23 insulin aspart U-100 100 unit/mL 20 unit subcut QID 02/18/23 02/18/23 subcutaneous solution (Novolog U-100 Insulin aspart) insulin degludec 100 unit/mL 32 unit subcut DAILY 02/18/23 02/18/23 subcutaneous solution (Tresiba U-100 Insulin) pantoprazole 40 mg tablet,delayed 40 mg PO QAM 02/18/23 02/18/23 release rosuvastatin 10 mg tablet 10 mg PO DAILY 02/18/23 02/18/23 Allergies Allergy/AdvReac Type Severity Reaction Status Date / Time No Known Allergies Allergy Verified 02/18/23 21:59 Review of Systems Review of Systems: All systems reviewed & are unremarkable except as noted in HPI and below PMFSH Past Medical History Medical History CHF (congestive heart failure) Diabetes mellitus Exam Const: General: healthy appearing Nutritional Appearance: well nourished Orientation/consciousness: patient oriented x3 Limitations: no limitations Neck: Neck: normal visual inspection Chest: Chest palpation & inspection: normal inspection of the chest Resp: Effort & Inspection: normal respiratory effort Auscultation: clear to auscultation bilaterally Cardio: Rate: regular rate Rhythm: regular rhythm GI: GI Palp: Yes Soft to palpation Skin: General skin exam: normal color Rashes: no rashes Wounds: wounds noted Other: 4x4 patch of erythema redness warmth and tenderness posterior right lower leg Neuro: General: patient oriented x3 and moves all extremities Extrem: General: normal to inspection and no pedal edema Psych: Mental Status: mental status grossly normal Affect: normal affect Course Course Emergency Course: patient had x-ray performed which shows no acute fractures, the area of erythema triple antibiotic ointment was applied and patient received a dose of IM ceftriaxone 1g, blood work performed shows no elevated white count lactic acid within normal range and her CMP within normal limits. Vital Signs Vital signs: Vital Signs Temperature 36.8 C 02/18/23 21:44 Pulse Rate 56 L 02/18/23 21:44 Blood Pressure 133/65 02/18/23 21:44 Pulse Oximetry 91 02/18/23 21:44 Oxygen Delivery Room Air 02/18/23 21:44 Temperature 36.8 C 02/18/23 21:44 Pulse Rate 56 L 02/18/23 21:44 Respiratory Rate 18 02/18/23 21:51 Blood Pressure 133/65 02/18/23 21:44 Pulse Oximetry 91 02/18/23 21:44 Oxygen Delivery Room Air 02/18/23 21:44 MDM - Wound/Laceration Lab Data 02/18/23 22:14 02/18/23 22:14 Labs: Lab Results 02/18/23 Range/Units 22:14 WBC 8.0 (4.8-10.8) K/mm3 RBC 4.10 L (4.20-5.40) M/mm3 Hgb 12.8 (11.7-13.8) g/
[2023-02-18] MEDS: cefTRIAXone 1 GM, LIDOCAINE HCL 1% LOCAL INJ 2.1 ML IM (22:52)
[2023-02-18 22:54] VITALS: BP 140/50; PULSE 68; RESP 18; TEMP 36.6; O2SAT 97
[2023-02-18 22:55] LABS: Lactic Acid Reflex 1.2 mmol/L (0.4-2.0)
--- NOTE | 2023-02-24 12:13 | PC.NURSE ---
final blood cultures x2 reviewed. no growth after 5 days . no change in plan of care
--- NOTE | 2023-02-25 17:09 | PC.NURSE ---
final blood culture reports x2 reviewed. no growth after 5 days. no change in plan of care
== END 2023-02-18 23:02 | disposition home or self-care (01) ==
PROVIDERS: Emergency Provider Emergency Medicine; PCP Family Medicine
DX: L03.115 Cellulitis of right lower limb (principal); I50.9 Heart failure, unspecified; E11.9 Type 2 diabetes mellitus without complications; Z79.899 Other long term (current) drug therapy; Z79.4 Long term (current) use of insulin
CPT/HCPCS: 36415; 73590; 80053; 83605; 85025; 87040; 96372; 99284; J0696; J1885

== ENCOUNTER 2023-02-24 02:33 | Day surgery (SDC) | payer OTHER, SELFPAY ==
[2023-02-12 16:04] VITALS: BMI 28.5
--- NOTE | 2023-02-22 09:19 | SUR.PREOP ---
Patient called regarding upcoming procedure. Reviewed preop instructions, appointment times, and procedure prep.
[2023-02-24 09:53] VITALS: BP 161/40; PULSE 56; RESP 18; TEMP 36.5; O2SAT 97; BMI 28.5
[2023-02-24 10:00] LABS: Glucose Point of Care 256 mg/dl (65-105)
[2023-02-24] MEDS: LACTATED RINGERS 1,000 ML 150 ML IV CONT (10:04)
--- NOTE | 2023-02-24 10:05 | WPDANESEPPF ---
Anes - Initial Pre Proc Eval Procedure: Operation Date: 02/24/23 11:15 Proposed Procedures p Esophagogastroduodenoscopy - Vinicio Leslie MD Date/Time: 02/24/23 10:05 Surgeon: Vinicio Leslie MD Pre Op Diagnosis: Dysphagia Patient Data Age: 77 Gender: F Height: 1.63 m Weight: 75.6 kg Last Vital Signs Temp 36.5 C 02/24/23 09:53 Pulse 56 L 02/24/23 09:53 Resp 18 02/24/23 09:53 BP 161/40 H 02/24/23 09:53 Pulse Ox 97 02/24/23 09:53 O2 Del Method Room Air 02/24/23 09:53 Allergies Allergy/AdvReac Type Severity Reaction Status Date / Time No Known Allergies Allergy Verified 02/24/23 09:52 Home Medications Medication Instructions Recorded Confirmed Type aspirin 81 mg capsule 81 mg PO DAILY 07/16/21 02/24/23 History calcitriol 0.5 mcg capsule 0.5 mcg PO DAILY 07/16/21 02/24/23 History carvedilol 25 mg tablet 25 mg PO BID 07/16/21 02/24/23 History coenzyme Q10 25 mg tablet 25 mg PO DAILY 07/16/21 02/24/23 History enalapril maleate 10 mg tablet 10 mg PO DAILY 07/16/21 02/24/23 History insulin aspart U-100 100 unit/mL 25 unit subcut DIRECTED 05/29/22 02/24/23 History (3 mL) subcutaneous pen (Novolog FlexPen U-100 Insulin aspart) pantoprazole 40 mg tablet,delayed 40 mg PO DAILY #90 tabs 11/13/22 02/24/23 Rx release rosuvastatin 10 mg tablet 10 mg PO DAILY #90 tabs 11/20/22 02/24/23 Rx insulin degludec 100 unit/mL (3 30 unit subcut DAILY 12/15/22 02/24/23 History mL) subcutaneous pen (Tresiba FlexTouch U-100 insulin) Laboratory Tests 02/24/23 09:57 POC Capillary Glucose 256 H mg/dl (65-105) Patient hx anesthesia problems: none Family hx anesthesia problems: none Results Review: All pre-operative results and documents have been reviewed as part of the pre-operative evaluation. 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 Varicose veins of left leg with edema Surgical History Surgical History History of vein stripping Hx of CABG CABG twice Previous back surgery S/P RADHA-BSO (total abdominal hysterectomy and bilateral salpingo-oophorectomy) Family History Family History Mother History of stroke Other Diabetes mellitus Social History Social History Social History: Smoking packs per day: 1 Smoking cigarettes per day: 20.0 Years smoked: 20 Smoking pack-years: 20.00 Smoking status: Former smoker Tobacco type: cigarettes Alcohol intake: never Substance use: never Substance use type: does not use Lack of Transportation: No Lack of Food: Never True Current Housing: I Have Housing Concerned About Future Housing: No Difficulty Paying Gas/Electric Bills: No Difficulty Paying for Meds: No Currently Unemployed: No Education: High School Diploma/GED Difficulty w/ Childcare or Family Care: No Living arrangements: with family Occupation/Education: retired Gender identity (if verbalized by the patient): Female Sexual Orientation (if Verbalized by the Patient): Straight or Heterosexual Spiritual care concerns: No Agree to blood products: Yes Anes - Eval Final PreProcedure Day of Procedure 02/24/23 10:05 Patient weight: overweight Heart: regular rate and rhythm Lungs: clear to auscultation Airway: Mallampati scale class II Neurological: alert and oriented Last oral intake: >/= 8 hours ASA classification: III
--- NOTE | 2023-02-24 10:43 | PM.HPGS ---
History of Present Illness History of Present Illness Consent: Risks, benefits, and alternatives have been discussed and questions answered. Patient agrees to proceed with procedure. Chief complaint: Dysphagia Narrative: Ana M Junior is a 77 year old female with choking and change of voice Review of Systems Constitutional: Constitutional: Denies headache(s) and Denies weakness Eyes: Eyes: Denies blurry vision ENT: Reports Normal hearing present, Denies headache(s) and Denies neck pain Cardiovascular: Cardiovascular: Denies chest pain and Denies dyspnea Respiratory: Respiratory: Denies dyspnea Gastrointestinal: Gastrointestinal: Reports no additional gastrointestinal complaints Genitourinary: Genitourinary: Denies dysuria Musculoskeletal: Musculoskeletal: Denies neck pain Integumentary/Breasts: Skin/Breast: Denies dry skin Neurologic: Reports Normal hearing present, Denies headache(s) and Denies weakness Psychiatric: Psychiatric: Denies anxiety Endocrine: Endocrine: Denies change in body appearance Hematologic/Lymphatic: Hematologic/Lymphatic: Denies easy bleeding Allergic/Immunologic: Allergic/Immunologic: Denies urticaria PMFSH Past Medical History Medical History (Updated 02/24/23 @ 10:44 by Vinicio Leslie MD) Benign essential HTN CAD (coronary artery disease) Cough Cystocele with uterine prolapse Degenerative joint disease (DJD) of lumbar spine Diabetic neuropathy Diabetic retinopathy Hiatal hernia with GERD Hx of myocardial infarction Hyperlipidemia Ischemic cardiomyopathy Long-term insulin use 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 Varicose veins of left leg with edema Surgical History Surgical History History of vein stripping Hx of CABG CABG twice Previous back surgery S/P RADHA-BSO (total abdominal hysterectomy and bilateral salpingo-oophorectomy) Family History Family History Mother History of stroke Other Diabetes mellitus Social History Social History Social History: Smoking packs per day: 1 Smoking cigarettes per day: 20.0 Years smoked: 20 Smoking pack-years: 20.00 Smoking status: Former smoker Tobacco type: cigarettes Alcohol intake: never Substance use: never Substance use type: does not use Lack of Transportation: No Lack of Food: Never True Current Housing: I Have Housing Concerned About Future Housing: No Difficulty Paying Gas/Electric Bills: No Difficulty Paying for Meds: No Currently Unemployed: No Education: High School Diploma/GED Difficulty w/ Childcare or Family Care: No Living arrangements: with family Occupation/Education: retired Gender identity (if verbalized by the patient): Female Sexual Orientation (if Verbalized by the Patient): Straight or Heterosexual Spiritual care concerns: No Agree to blood products: Yes Meds Home Medications and Allergies Home Medications Medication Instructions Recorded Confirmed Type aspirin 81 mg capsule 81 mg PO DAILY 07/16/21 02/24/23 History calcitriol 0.5 mcg capsule 0.5 mcg PO DAILY 07/16/21 02/24/23 History carvedilol 25 mg tablet 25 mg PO BID 07/16/21 02/24/23 History coenzyme Q10 25 mg tablet 25 mg PO DAILY 07/16/21 02/24/23 History enalapril maleate 10 mg tablet 10 mg PO DAILY 07/16/21 02/24/23 History insulin aspart U-100 100 unit/mL 25 unit subcut DIRECTED 05/29/22 02/24/23 History (3 mL) subcutaneous pen (Novolog FlexPen U-100 Insulin aspart) pantoprazole 40 mg tablet,delayed 40 mg PO DAILY #90 tabs 11/13/22 02/24/23 Rx release rosuvastatin 10 mg tablet 10 mg PO DAILY #90 tabs 11/20/22 02/24/23 Rx insulin degludec 100 unit/mL (3 30 unit subcut DAILY 12/15/22 02/24/23 History mL) subcutaneous pen (Tresiba FlexTouch U-100 insulin) A
[2023-02-24 11:04] VITALS: BP 161/87; PULSE 65; RESP 21; O2SAT 95
[2023-02-24 11:14] VITALS: BP 164/70; PULSE 66; RESP 21; O2SAT 93
[2023-02-24 11:23] LABS: Glucose Point of Care 255 mg/dl (65-105)
[2023-02-24 11:24] VITALS: BP 178/71; PULSE 58; RESP 21; O2SAT 95
== END 2023-02-24 11:47 | disposition home or self-care (01) ==
PROVIDERS: PCP Family Medicine; Visit Provider Internal Medicine Gastroenterology
PROC: 0DJ08ZZ Inspection of Upper Intestinal Tract, Via Natural or Artificial Opening Endoscopic (ICD-10-PCS; CPT 43235; principal; 2023-02-24 11:15)
DX: K44.9 Diaphragmatic hernia without obstruction or gangrene (principal); K29.50 Unspecified chronic gastritis without bleeding; K21.9 Gastro-esophageal reflux disease without esophagitis; I10 Essential (primary) hypertension; E11.40 Type 2 diabetes mellitus with diabetic neuropathy, unspecified; E11.319 Type 2 diabetes mellitus with unspecified diabetic retinopathy without macular edema; E78.5 Hyperlipidemia, unspecified; Z79.82 Long term (current) use of aspirin; Z79.4 Long term (current) use of insulin; Z79.899 Other long term (current) drug therapy; Z87.891 Personal history of nicotine dependence
CPT/HCPCS: 43239; 82948; 88305; J2704; J7120

== ENCOUNTER 2023-02-27 03:19 | Inpatient (IN) | payer OTHER, MEDICARE, SELFPAY ==
[2023-02-27] VITALS (51 sets, daily range): BP systolic 118–192; BP diastolic 48–82; PULSE 45–74; RESP 11–26; TEMP 36.7–37.1; O2SAT 93–100; BMI 26.8
--- NOTE | ~2023-02-27 | US_ITS ---
Procedure: Duplex Doppler examination of the bilateral carotids. Indication: Vertigo Technique: Real time, color-flow and pulse wave Doppler examination of the bilateral carotids was performed. Findings: Gerber scale ultrasonography of the right neck demonstrated small calcified plaques at the right caroti d bulb. There was demonstration of normal color-flow and Doppler waveforms within the right common, i nternal and external carotid arteries. The peak systolic velocities in the right common, internal and external carotid arteries were demonstrated to be 115 cm/sec, 128 cm/sec and 104 cm/sec respectively . The right ICA/CCA ratio was 1.1.The proximal right internal carotid artery demonstrates 0% stenosis relative to the normal distal artery lumen diameter. Gerber scale sonography of the left neck demonstrated moderate calcified plaques at the left carotid bu lb. There was demonstration of normal color-flow and wave forms within the left common, internal and external carotid arteries. The peak systolic velocities in the left common, internal and external car otid arteries were demonstrated to be 113cm/sec, 106 cm/sec and 113 cm/sec respectively. The left ICA /CCA ratio was 0.9. The proximal left internal carotid artery demonstrates 0% stenosis relative to th e normal distal artery lumen diameter. There was antegrade flow demonstrated in the bilateral vertebral arteries. Impression: No hemodynamically significant stenosis of the bilateral internal carotid arteries. Antegrade flow in the bilateral vertebral arteries. Note: The methodology used is an indirect measurement validated against a direct method (such as the NASCET criteria) that compares diameters at the stenosis to the distal ICA. Reviewed, dictated and finalized at location . UCTION MINER Impression: No hemodynamically significant stenosis of the bilateral internal carotid arter ies. Antegrade flow in the bilateral vertebral arteries. Note: The methodology used is an indirect measurement validated against a direct meth od (such as the NASCET criteria) that compares diameters at the stenosis to the distal ICA.
--- NOTE | ~2023-02-27 | XR_ITS ---
EXAMINATION: XR barium swallow modified DATE: 03/03/2023 10:36 INDICATION: Dysphagia. TECHNIQUE: The patient was given barium-containing material of multiple consistencies to swallow by t he speech pathologist while I performed fluoroscopy. Fluoroscopy exposure time was 1.4 minutes. The n umber of fluoroscopy images saved to the PACS was 1. Dose-area product was 0.944 Gy-cm^2. FINDINGS: The oral stage, pharyngeal stages, and cervical/esophageal stage of the swallow are normal. IMPRESSION: 1. Normal modified barium swallow. 2. Please refer to the speech therapy report for recommendations. Reviewed, dictated and finalized at location A. S REPRESENTATIVE AIRCRAFT
--- NOTE | ~2023-02-27 | XR_ITS ---
EXAMINATION: XR chest 1V portable INDICATION: Cough TECHNIQUE: Portable AP chest at 0409 hours COMPARISON: 08/22/2022 FINDINGS: There are mild interstitial opacities of the lung bases. No pleural effusion or pneumothora x. Cardiomegaly is noted. Median sternotomy wires and mediastinal surgical clips are seen, likely fro m prior coronary artery bypass grafting. IMPRESSION: 1. Cardiomegaly with probable mild pulmonary edema. Reviewed, dictated and finalized at location F. AL REGULATORY AFFAIRS MANAGER
--- NOTE | ~2023-02-27 | CT_ITS ---
EXAMINATION: CT abdomen pelvis w con INDICATION: Abdominal TECHNIQUE: Computed tomographic images of the abdomen and pelvis were obtained after the administrati on of 100 cc of Omnipaque 350 intravenous contrast. The dose-length product (DLP) was 707.32 mGy-cm. Automated exposure control and iterative reconstruction technique were employed. COMPARISON: 07/16/2020 FINDINGS: There is mild atelectasis of the visualized lung bases. Cardiomegaly is noted. There is a s mall sliding hiatal hernia. Changes of coronary artery bypass grafting are noted. The gallbladder is surgically absent. There is mild enlargement of the common bile duct and central intrahepatic ducts w hich is likely due to post cholecystectomy state. The liver, spleen, pancreas, and adrenal glands are normal. The right kidney is unremarkable. There is a 9 mm cyst of the left kidney upper pole. There is calcified atherosclerosis of the aorta and many of the other arteries. No pathologically enlarged abdominal or pelvic lymph nodes are identified. No free intraperitoneal gas or evidence of bowel obst ruction. A moderate volume of colonic stool is present. The appendix is normal. There is a periumbili madan hernia containing a short segment of nonobstructed transverse colon. There are changes of posteri or fusion at L5-S1. There is moderate lumbar spondylosis. IMPRESSION: 1. Moderate volume of colonic stool. 2. Periumbilical hernia containing a short segment of nonobstructed transverse colon. 3. Small sliding hiatal hernia. Reviewed, dictated and finalized at location F. AL DRILL PRESS OPERATOR
--- NOTE | ~2023-02-27 | CT_ITS ---
EXAMINATION: CTA brain DATE: 03/04/2023 12:34 INDICATION: Acute stroke in left cerebellum. TECHNIQUE: Computed tomographic angiography (CTA) of the head was performed without and with 100 mL O mnipaque-350 intravenous contrast. Automated exposure control and iterative reconstruction technique were employed. The dose-length product was 1127.10 mGy-cm. Maximum intensity projection 3D reconstru ctions were created. Volume-rendered 3D reconstructions of the intracranial arteries were created by the technologist on a separate workstation. COMPARISON: Head CT 02/27/2023, brain MRI 02/28/2023 FINDINGS: There is no intracranial hemorrhage, acute infarction, or abnormal intracranial mass lesion . There are scattered areas of low attenuation in the cerebral white matter. The ventricles are maria del rosario l in size. There is mucosal thickening in the paranasal sinuses. There are likely changes of ocular l ens replacement surgeries. The mastoid air cells are normal. The vertebral arteries are codominant. T here is no significant stenosis of basilar artery. There is moderate stenosis of the right P2 posteri or cerebral artery and left P2 posterior cerebral artery. There is an infundibulum of left posterior communicating artery. Right posterior communicating artery is normal. There is moderate stenosis of t he bilateral intracranial internal carotid arteries. There is no significant stenosis of the anterior or middle cerebral arteries. Anterior communicating artery is normal. There is no aneurysm. IMPRESSION: 1. Mild nonspecific cerebral white matter disease, which likely represents chronic small vessel ische julio disease. 2. Moderate stenosis of the bilateral intracranial internal carotid arteries and bilateral P2 posteri or cerebral artery segments. Reviewed, dictated and finalized at location A. R CONE MACHINE OPERATOR IMPRESSION: 1. Mild nonspecific cerebral white matter disease, which likely represents sales executive insurance karo small vessel ischemic disease. 2. Moderate stenosis of the bilateral intracranial internal carotid arteries an d bilateral P2 posterior cerebral artery segments.
--- NOTE | ~2023-02-27 | CT_ITS ---
EXAMINATION: CT brain wo con INDICATION: Vertigo COMPARISON: 11/07/2019 TECHNIQUE: Standard unenhanced head CT. The dose-length product (DLP) was 605.33 mGy-cm. The mA was a djusted according to patient size. Iterative reconstruction technique was employed. FINDINGS: No acute intraparenchymal hemorrhage. No evidence of mass lesion. No evidence of acute infa rction. There is mild periventricular and subcortical hypodensity probably related to small vessel is chemic disease. There is mild prominence of the sulci and ventricles related to cerebral atrophy. Int racranial calcified cerebral atherosclerosis is noted. No extra-axial collections. No mass effect or midline shift. Changes in the globes are likely from ocular lens surgery. There is mild mucosal thick ening of the paranasal sinuses. IMPRESSION: 1. No acute intracranial abnormality. 2. Age related findings. Reviewed, dictated and finalized at location A. ER SUPERVISOR
--- NOTE | ~2023-02-27 | MR_ITS ---
EXAMINATION: MR brain/brain stem wo con DATE: 02/28/2023 10:52 INDICATION: severe vertigo TECHNIQUE: Magnetic resonance imaging (MRI) of the brain and brainstem was performed without intraven ous contrast. Sequences included sagittal and axial T1-weighted SE, axial diffusion-weighted FS EPI A SSET, axial T2*-weighted GRE, axial T2-weighted FLAIR Propeller, and axial T2-weighted Propeller. Pos tcontrast axial and coronal T1-weighted SE was obtained. Apparent diffusion coefficient (ADC) maps we re created. COMPARISON: CT brain 02/27/2023; MR brain 11/28/2019 FINDINGS: Tiny focus of restricted diffusion, measuring approximately 4 mm, in the left cerebellum (DWI/ADC seq uences image 11/02). Old lacunar infarct in the left lentiform nucleus. No MRI evidence of hemorrhage or extra-axial collection. No suspicious foci of susceptibility to suggest prior intraparenchymal hem orrhage. Moderate patchy white matter hyperintensity, likely representing moderate small vessel ische julio disease. Mild generalized parenchymal volume loss. The basilar cisterns are patent. Flow voids ar e preserved. Left maxillary and bilateral ethmoid mucosal thickening. Bilateral lens replacements, gl obes and orbital contents are otherwise within normal limits. IMPRESSION: 4 mm focal, acute infarct in the left cerebellum. Reviewed, dictated and finalized at location K. ICAL RECRUITER
--- NOTE | 2023-02-27 03:29 | ECG_ITS ---
Measurements Intervals [place] Rate: 48 P: -15 SC: 172 QRS: 24 QRSD: 159 T: -9 QT: 488 QTc: 439 Interpretive Statements SINUS BRADYCARDIA RIGHT BUNDLE BRANCH BLOCK CONSIDER LATERAL INFARCT, AGE INDETERMINATE BASELINE ARTIFACT- V6 ABNORMAL ECG NO PREVIOUS ECG AVAILABLE FOR COMPARISON Electronically Signed On 02-27-2023 8:30:58 RESIDENTIAL TECH by José Antonio Rodgers D.O.
[2023-02-27 04:01] LABS: Basophils Absolute Auto 0.1 K/mm3 (0.0-0.1); Eosinophils Absolute Auto 0.2 K/mm3 (0-0.3); Eosinophils Percent Auto 3.3 % (0-4.4); Hematocrit 41.6 % (37.0-47.0); Hemoglobin 13.7 g/dL (12.0-15.0); Immature Granulocyte Absolute 0.01 K/mm3 (0.00-0.031); Immature Granulocyte Percent A 0.2 % (0-0.5); Lymphocytes Absolute Auto 1.24 K/mm3 (0.9-3.2); Lymphocytes Percent Auto 24.2 % (18.3-44.2); Mean Corpuscular HGB Conc 32.9 g/dl (32-36); Mean Corpuscular Hemoglobin 31.2 pg (26-34); Mean Corpuscular Volume 94.8 fl (80-100); Monocytes Absolute Auto 0.5 K/mm3 (0.1-0.6); Neutrophils Absolute Auto 3.2 K/mm3 (1.3-6.7); Neutrophils Percent Auto 62.3 % (45.5-73.1); Platelet Count Result 231 k/mm3 (150-375); Red Blood Count 4.39 M/mm3 (4.2-5.4); Red Cell Distribution Width 12.3 % (11.5-14.5); White Blood Count 5.1 K/mm3 (4.5-10.0)
[2023-02-27 04:07] LABS: Ethanol < 10 mg/dL (<10); Lactic Acid Reflex 1.7 mmol/L (0.7-2.0)
[2023-02-27 04:08] LABS: Alanine Aminotransferase 18 U/L (6-35); Albumin Level 4.4 g/dL (3.5-5.1); Alkaline Phosphatase 59 U/L (38-126); Anion Gap 12 mmol/L (8-16); Aspartate Amino Transferase 23 U/L (14-36); Bilirubin,Total 0.5 mg/dL (0.2-1.3); Blood Urea Nitrogen 20 mg/dL (7-17); Calcium 9.8 mg/dL (8.4-10.2); Carbon Dioxide 25 mmol/L (22-30); Chloride 100 mmol/L (98-107); Creatine Kinase 58 U/L (30-135); Estimated CRCL calculation 61 ml/min; Estimated Glomerular Filt Rate > 60; Glucose 220 mg/dL (65-110); Lipase 107 U/L (23-300); Magnesium 1.4 mg/dL (1.6-2.3); Phosphorus 3.2 mg/dL (2.5-4.5); Potassium 4.5 mmol/L (3.4-5.0); Sodium 137 mmol/L (137-145)
[2023-02-27 04:10] LABS: INR 1.1; Prothrombin Time 14.4 Seconds (11.1-14.7)
[2023-02-27 04:11] LABS: Partial Thromboplastin Time 30.6 SECONDS (22.3-36.8)
[2023-02-27 04:19] LABS: NT Pro B Type Natriuretic Pept 301 pg/mL (19.9-100); Troponin I < 0.012 ng/mL (0.000-0.034)
[2023-02-27 04:39] LABS: Influenza A QL RT-PCR Negative (Negative); Influenza B QL RT-PCR Negative (Negative); RSV RNA, RT-PCR Negative (Negative); SARS-CoV-2 RNA PCR Negative (Negative)
[2023-02-27 04:47] LABS: Thyroid Stimulating Hormone Reflex 0.596 uIU/mL (0.465-4.68)
--- NOTE | 2023-02-27 05:14 | ED.GENADULT ---
HPI - General Adult General Chief complaint: Shortness of Breath/Dyspnea <Max Burgos MD - Last Filed: 02/27/23 07:03> Stated complaint: Nausea <Max Burgos MD - Last Filed: 02/27/23 07:03> Time Seen by Provider: 02/27/23 03:29 <Max Burgos MD - Last Filed: 02/27/23 07:03> History of Present Illness HPI narrative: This is a 69-year-old female presenting ED with a chief complaint of nausea. Patient says she has been having nausea since yesterday evening. She has not had any episodes of vomiting. She did have diarrhea 3 days ago was not have a bowel movement since then. Patient also notes a cough x3 weeks. Patient denies fever chills chest pain difficulty breathing abdominal pain or urinary symptoms. No sick contacts at home. <Max Burgos MD - Last Filed: 02/27/23 07:03> Related Data Home medications: Home Medications Medication Instructions Recorded Confirmed aspirin 81 mg capsule 81 mg PO DAILY 07/16/21 02/27/23 calcitriol 0.5 mcg capsule 0.5 mcg PO DAILY 07/16/21 02/27/23 carvedilol 25 mg tablet 25 mg PO BIDWM 07/16/21 02/27/23 coenzyme Q10 25 mg tablet 25 mg PO DAILY 07/16/21 02/27/23 enalapril maleate 10 mg tablet 10 mg PO DAILY 07/16/21 02/27/23 insulin aspart U-100 100 unit/mL 20 unit subcut DIRECTED 05/29/22 02/27/23 (3 mL) subcutaneous pen (Novolog FlexPen U-100 Insulin aspart) amoxicillin 500 mg-potassium 1 tablet PO TID 02/27/23 02/27/23 clavulanate 125 mg tablet insulin degludec 200 unit/mL (3 30 unit subcut DAILY 02/27/23 02/27/23 mL) subcutaneous pen (Tresiba FlexTouch U-200 insulin) <Max Burgos MD - Last Filed: 02/27/23 07:03> Allergies/adverse reactions: Allergies Allergy/AdvReac Type Severity Reaction Status Date / Time No Known Allergies Allergy Verified 02/24/23 09:52 <Max Burgos MD - Last Filed: 02/27/23 07:03> [facility] Past Medical History Medical History: Medical History (Updated 02/27/23 @ 17:02 by Param Shannon MD) Benign essential hypertension Coronary artery disease Cystocele with uterine prolapse Status post colpopexy. 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 History of lumbar laminectomy History of tonsillectomy and adenoidectomy History of total abdominal hysterectomy and bilateral salpingo-oophorectomy History of vein stripping <Max Burgos MD - Last Filed: 02/27/23 07:03> Family History Family History: Family History Mother History of stroke Other Diabetes mellitus <Max Burgos MD - Last Filed: 02/27/23 07:03> Social History Social History: Social History (Updated 02/27/23 @ 16:33 by Ghazala Barahona PA-C) Social History: Surrogate medical decision maker: Mary Martinez, daughter. Code status: Full code. Smoking packs per day: 1 Smoking cigarettes per day: 20.0 Years smoked: 20 Smoking pack-years: 20.00 Smoking status: Former smoker Alcohol intake: never Substance use: never Substance use type: does not use Lack of Transportation: No Lack of Food: Never True Current Housing: I Have Housing Concerned About Future Housing: No Difficulty Paying Gas/Electric Bills: No Difficulty Paying for Meds: No Currently Unemp
[2023-02-27] MEDS: SODIUM CHLORIDE 0.9% IV 2,000 ML 999 ML IV CONT (06:05)
[2023-02-27] MEDS: ONDANSETRON INJ 4 MG/2 ML VIAL 8 MG IV PUSH (06:06)
[2023-02-27] MEDS: METOCLOPRAMIDE HCL INJ 10 MG/2 ML VIAL IV PUSH (06:07)
[2023-02-27 06:46] LABS: Appearance Urine Clear (Clear); Bacteria Urine None Seen /hpf; Bilirubin Urine Negative (Negative); Blood Urine Negative (Negative); Color Urine Yellow (Yellow); Glucose Urine UA 3+ mg/dL (Negative); Ketones Urine Negative (Negative); Leukocyte Esterase Ur 1+ LEU/UL (Negative); Nitrate Urine Negative (Negative); Non Pathogenic Casts 0-2; Protein Urine 1+ mg/dL (Negative); RBC Urine 0-2 /hpf (0-2); Specific Grav Ur 1.033 (1.001-1.035); Squamous Epithelial Cell Urine None seen /hpf (Few); Urobilinogen Urine 0.2 mg/dL (<2.0); WBC Urine 21-50 /hpf
[2023-02-27 06:49] LABS: Add Urine Microscopic? YES
[2023-02-27 06:55] LABS: Amphetamine Screen Urine Negative (Negative); Barbiturate Screen Urine Negative (Negative); Benzodiazepines Screen Urine Negative (Negative); Cannabinoid Screen Urine Negative (Negative); Cocaine Screen Urine Negative (Negative); Methadone Screen Urine Negative (Negative); Opiate Screen Urine Negative (Negative); Phencyclidine Screen Urine Negative (Negative)
[2023-02-27 07:01] LABS: Troponin I < 0.012 ng/mL (0.000-0.034)
[2023-02-27] MEDS: ONDANSETRON INJ 4 MG/2 ML VIAL IV PUSH (10:27)
[2023-02-27] MEDS: MECLIZINE HCL 25 MG TABLET PO (10:27)
[2023-02-27 11:17] LABS: Glucose Point of Care 263 mg/dl (65-105)
--- NOTE | 2023-02-27 13:13 | PM.IMHP ---
H&P: HPI History of Present Illness Date/Time: 02/27/23 14:00 Chief Complaint: Multiple complaints. Narrative: This is a 77-year-old female with insulin-dependent type 2 diabetes mellitus, coronary artery disease status post bypass, hypertension, hiatal hernia with GERD, and other comorbidities who presented to the emergency department via EMS from home for evaluation multiple complaints. It is difficult to get a good history from the patient although she is alert and oriented x4. Some of the following is supplemented via a review of her EMR including review of the triage and ED physician notes and discussions with her nurse and tech here on the floor. Triage note states that she came in with complaints of shortness of breath and back pain however she specifically denied both of those complains to me. Instead she tells me that she came in for severe nausea and vertigo and it looks like she told the ED doctor that she came in for nausea only. It is my understanding that her symptoms started rather abruptly last evening and they have gotten progressively worse. She also mentions having diarrhea however that was 3 days ago and she has not had a bowel movement since that time. Additionally she reports a nonproductive cough for the last 3 weeks. And she is currently taking Augmentin for cellulitis of the lower leg. She was afebrile on arrival to the emergency department with stable vital signs although blood pressures have been running higher, in the 160s to 180s systolic. CMP and CBC were pretty unremarkable. Magnesium was a bit low at 1.4. Urine was positive for 1+ leukocyte esterase and 21 to 50 wbc's. Urine drug screen and ethyl alcohol level were negative. She tested negative for influenza, RSV, and COVID. CT of the abdomen and pelvis showed moderate volume of colonic stool, small sliding hiatal hernia, and a periumbilical hernia containing a short segment of nonobstructed transverse colon. Initially she received IV fluids and antiemetics and it looks as though she was going to be discharged home however was unable to stand or ambulate due to severe vertigo. A subsequent brain CT was performed and that showed no acute intracranial abnormalities and age-related findings. She was admitted to the floor in this setting. At the time of my evaluation she is lying on her left side in the bed with her feet dangling over the side of the bed. This is the position that is most comfortable for her. Even with minimal movement her vertigo worsens (she describes constant swaying and spinning sensations) and she feels as though she is going to vomit. She has a history of vertigo but never this severe. Meclizine given in the ED was of no benefit. She has had a couple falls though no recent head trauma. She denies headache, focal weakness, paresthesias, visual changes, tinnitus, facial droop, difficulties speaking and swallowing, chest pain, palpitations, shortness of breath, vomiting, dysuria but she reports urgency and frequency. Review of Systems Review of Systems: Twelve systems were reviewed. Reports having a cough for 3 weeks though it is improving. No sinus congestion or sore throat. She denies fever, chills, and sweats. No chest or pleuritic pain. No palpitations. She denies shortness of breath. No orthopnea, paroxysmal nocturnal dyspnea, or lower extremity edema. She is currently on Augmentin for lower extremity cellulitis and she has a few days remaining. She has run out of glucose testing strips and has been out of them for couple of weeks. Random glucose today was 220. Except as documented, all other systems were reviewed and are negative. [facility] Past Medical History Medical History Benign essential hypertension Coronary artery disease Cystocele with uterine prolapse Status post colpopexy. Degenerative joint disease (DJD) of lumbar spine Diabetic neuropathy Diabetic retinopathy Hiatal hernia with GERD Hyperlipi
--- NOTE | 2023-02-27 13:46 | ADMGEN ---
This patient, Ana M Junior, was admitted to 3 [facility] Surg Room 315-02. Patient/family oriented to hospital policies and general routines including ID bracelet, bed and alarms, visiting hours, pain management, procedures, bathroom and other care routines, personal items, smoking policy, room service/diet, and visiting hours. Information on how to activate the Rapid Response Team has been discussed. Patient/Family are encouraged to report perceived risks to care and to ask questions if they do not understand what they are told or what they should do.
[2023-02-27 16:50] LABS: Glucose Point of Care 270 mg/dl (65-105)
[2023-02-27] MEDS: diazePAM INJ (*CRX) 10 MG/2 ML SYRINGE 2.5 MG IV PUSH (16:53)
[2023-02-27] MEDS: MAGNESIUM SULF 2 GM/WATER 50ML 2 GM/50 ML BAG IVPB (16:53)
[2023-02-27 19:01] LABS: Hemoglobin A1C 8.7 % (<5.7)
[2023-02-27 20:41] LABS: Glucose Point of Care 266 mg/dl (65-105)
[2023-02-27] MEDS: MECLIZINE HCL 12.5 MG TABLET PO (20:47)
[2023-02-27] MEDS: INSULIN ASPART (*BKC) 100 UNITS/ML SUB-Q (20:47)
[2023-02-27] MEDS: ACETAMINOPHEN 325 MG TABLET 650 MG PO (20:49)
[2023-02-28] VITALS (12 sets, daily range): BP systolic 125–176; BP diastolic 51–110; PULSE 42–80; RESP 13–20; TEMP 36.2–36.6; O2SAT 91–95
[2023-02-28 06:33] LABS: Hemoglobin 13.1 g/dL (12.0-15.0); Mean Corpuscular HGB Conc 32.8 g/dl (32-36); Mean Corpuscular Volume 94.6 fl (80-100); Mean Platelet Volume 11.2 fl (7.4-10.4); Platelet Count Result 231 k/mm3 (150-375); Red Blood Count 4.23 M/mm3 (4.2-5.4); Red Cell Distribution Width 12.3 % (11.5-14.5); White Blood Count 5.2 K/mm3 (4.5-10.0)
[2023-02-28 06:42] LABS: Anion Gap 9 mmol/L (8-16); Blood Urea Nitrogen 15 mg/dL (7-17); Calcium 9.3 mg/dL (8.4-10.2); Carbon Dioxide 24 mmol/L (22-30); Chloride 99 mmol/L (98-107); Estimated CRCL calculation 72 ml/min; Estimated Glomerular Filt Rate > 60; Glucose 259 mg/dL (65-110); Magnesium 1.9 mg/dL (1.6-2.3); Potassium 4.2 mmol/L (3.4-5.0); Sodium 132 mmol/L (137-145)
[2023-02-28 08:06] LABS: Glucose Point of Care 249 mg/dl (65-105)
--- NOTE | 2023-02-28 08:24 | P.PNIM_ITS ---
Progress Note: A&P Assessment and Plan (1) Vertigo: Code(s): R42 - Dizziness and giddiness Status: Acute (2) Hypomagnesemia: Code(s): E83.42 - Hypomagnesemia Status: Acute (3) Acute UTI: Code(s): N39.0 - Urinary tract infection, site not specified Status: Acute (4) Pyuria: Code(s): R82.81 - Pyuria Status: Acute (5) Cellulitis, leg: Code(s): L03.119 - Cellulitis of unspecified part of limb Status: Acute (6) Insulin dependent type 2 diabetes mellitus: Code(s): E11.9 - Type 2 diabetes mellitus without complications; Z79.4 - long-term (current) use of insulin Status: Acute Plan (1) Vertigo: ?Code(s): R42 - Dizziness and giddiness ?Status:?Acute ?Assessment and Plan: She has severe vertigo and nausea. May very well be benign positional vertigo however given her ongoing symptoms with seemingly lack of improvement with any position, CVA and posterior circulation issues are consideration given her risk factors. * Continue meclizine as needed. * Trial diazepam x1. * Analgesics available as needed. * Initiate fall precautions; ambulate only with assistance. * Neurologic checks q.4 hours. * Brain MR and carotid Doppler ultrasounds ordered. Not done yet * Consult neurologist for evaluation treatment (2) Hypomagnesemia:, hyponatremia ?Code(s): E83.42 - Hypomagnesemia ?Status:?Acute ?Assessment and Plan: Magnesium and sodium chloride will be replaced and monitored. (3) Pyuria: ?Code(s): R82.81 - Pyuria ?Status:?Acute ?Assessment and Plan: She endorses mild urgency and frequency; no bacteria noted on microscopy however. * Continue ceftriaxone pending urine culture. (4) Cellulitis, leg: ?Code(s): L03.119 - Cellulitis of unspecified part of limb ?Status:?Acute ?Assessment and Plan: Recently diagnosed with lower leg cellulitis. * Hold Augmentin while on ceftriaxone. (5) Insulin dependent type 2 diabetes mellitus: ?Code(s): E11.9 - Type 2 diabetes mellitus without complications; Z79.4 - long-term (current) use of insulin ?Status:?Acute ?Assessment and Plan: Random glucose was 220 on arrival. * Continue basal insulin. * Initiate sliding scale insulin, Accu-Cheks, and hypoglycemic protocol. * Check hemoglobin A1c. (6) Benign essential hypertension: ?Code(s): I10 - Essential (primary) hypertension ?Status:?Acute ?Assessment and Plan: Blood pressures were reviewed and they have been running between the 150s to 170s systolic. * Continue antihypertensive. * Make adjustments accordingly depending on how she trends. Subjective Date/time seen: 02/28/23 08:24 Interval history: I saw exam patient today, patient feels better, denies dizziness, focal weakness, chest pain, palpitation, abdomen pain, nausea vomiting diarrhea Exam Narrative: GENERAL: Pleasant, in no acute distress. Well-nourished. - EYES: EOMI. Anicteric. - HENT: Moist mucous membranes. - LUNGS: Clear to auscultation bilateral ly, no wheezing, rhonchi, or rales. - CARDIOVASCULAR: Regular rate and rhyth m. No murmur. No JVD. - ABDOMEN: Soft, non-tender and non-dist ended. No palpable masses. - EXTREMITIES: No
--- NOTE | 2023-02-28 08:24 | PM.IMPN ---
Progress Note: A&P Assessment and Plan (1) Vertigo: Code(s): R42 - Dizziness and giddiness Status: Acute (2) Hypomagnesemia: Code(s): E83.42 - Hypomagnesemia Status: Acute (3) Acute UTI: Code(s): N39.0 - Urinary tract infection, site not specified Status: Acute (4) Pyuria: Code(s): R82.81 - Pyuria Status: Acute (5) Cellulitis, leg: Code(s): L03.119 - Cellulitis of unspecified part of limb Status: Acute (6) Insulin dependent type 2 diabetes mellitus: Code(s): E11.9 - Type 2 diabetes mellitus without complications; Z79.4 - nursing home (current) use of insulin Status: Acute Plan (1) Vertigo: ?Code(s): R42 - Dizziness and giddiness ?Status:?Acute ?Assessment and Plan: She has severe vertigo and nausea. May very well be benign positional vertigo however given her ongoing symptoms with seemingly lack of improvement with any position, CVA and posterior circulation issues are consideration given her risk factors. Continue meclizine as needed. Trial diazepam x1. Analgesics available as needed. Initiate fall precautions; ambulate only with assistance. Neurologic checks q.4 hours. Brain MR and carotid Doppler ultrasounds ordered. Not done yet Consult neurologist for evaluation treatment (2) Hypomagnesemia:, hyponatremia ?Code(s): E83.42 - Hypomagnesemia ?Status:?Acute ?Assessment and Plan: Magnesium and sodium chloride will be replaced and monitored. (3) Pyuria: ?Code(s): R82.81 - Pyuria ?Status:?Acute ?Assessment and Plan: She endorses mild urgency and frequency; no bacteria noted on microscopy however. Continue ceftriaxone pending urine culture. (4) Cellulitis, leg: ?Code(s): L03.119 - Cellulitis of unspecified part of limb ?Status:?Acute ?Assessment and Plan: Recently diagnosed with lower leg cellulitis. Hold Augmentin while on ceftriaxone. (5) Insulin dependent type 2 diabetes mellitus: ?Code(s): E11.9 - Type 2 diabetes mellitus without complications; Z79.4 - nursing home (current) use of insulin ?Status:?Acute ?Assessment and Plan: Random glucose was 220 on arrival. Continue basal insulin. Initiate sliding scale insulin, Accu-Cheks, and hypoglycemic protocol. Check hemoglobin A1c. (6) Benign essential hypertension: ?Code(s): I10 - Essential (primary) hypertension ?Status:?Acute ?Assessment and Plan: Blood pressures were reviewed and they have been running between the 150s to 170s systolic. Continue antihypertensive. Make adjustments accordingly depending on how she trends. Subjective Date/time seen: 02/28/23 08:24 Interval history: I saw exam patient today, patient feels better, denies dizziness, focal weakness, chest pain, palpitation, abdomen pain, nausea vomiting diarrhea Exam Narrative: GENERAL: Pleasant, in no acute distress. Well-nourished. - EYES: EOMI. Anicteric. - HENT: Moist mucous membranes. - LUNGS: Clear to auscultation bilaterally, no wheezing, rhonchi, or rales. - CARDIOVASCULAR: Regular rate and rhythm. No murmur. No JVD. - ABDOMEN: Soft, non-tender and non-distended. No palpable masses. - EXTREMITIES: No edema. Peripheral pulses 2+. Non-tender. - NEUROLOGIC: No focal neurological deficits. CN II-XII grossly intact. Patient has a general weakness, no focal weakness, no vision deficit, able to perform nose to finger test, patient was too weak to perform other neurology tests - PSYCHIATRIC: Awake, Alert and oriented x 3. Appropriate mood and affect. - SKIN: No rashes or lesions. Warm. - LYMPH: No cervical lymphadenopathy. Objective Data Vital Signs Vital Signs: Vital Signs - 24 hr 02/27/23 09:26 02/27/23 10:44 02/27/23 10:45 Temperature Pulse Rate 45 L 52 L Respiratory Rate 17 17 Blood Pressure 174/66 H Pulse Oximetry 98 98 96 Oxygen Delivery 02/27/23 10:47 02/27/23 11:09 02/27
[2023-02-28] MEDS: ENALAPRIL MALEATE 10 MG TABLET PO (08:37)
[2023-02-28] MEDS: PANTOPRAZOLE 40 MG TABLET PO (08:38)
[2023-02-28] MEDS: ASPIRIN 81 MG ENTERIC TABLET PO (08:38)
[2023-02-28] MEDS: calcitrioL 0.25 MCG CAPSULE 0.5 MCG PO (08:38)
[2023-02-28] MEDS: ROSUVASTATIN 10 MG TABLET PO (08:38)
[2023-02-28] MEDS: INSULIN GLARGINE (*BKC) 100 UNITS/ML 30 UNITS SUB-Q (08:40)
[2023-02-28] MEDS: INSULIN ASPART (*BKC) 100 UNITS/ML SUB-Q ×2 (08:40→16:47)
[2023-02-28] MEDS: MECLIZINE HCL 12.5 MG TABLET PO ×3 (08:40→16:46)
[2023-02-28] MEDS: SODIUM CHLORIDE 500 MG TABLET 1000 MG PO ×3 (08:47→16:46)
[2023-02-28] MEDS: ONDANSETRON INJ 4 MG/2 ML VIAL IV PUSH (09:08)
[2023-02-28 11:30] LABS: Glucose Point of Care 296 mg/dl (65-105)
[2023-02-28 16:40] LABS: Glucose Point of Care 378 mg/dl (65-105)
[2023-02-28 19:46] LABS: Glucose Point of Care 321 mg/dl (65-105)
[2023-02-28 20:27] LABS: Glucose Point of Care 264 mg/dl (65-105)
--- NOTE | 2023-02-28 20:35 | PC.NURSE ---
Pt refused HS meds, stated I feel fine right now and i think they been giving me too much . Pt educated on medications and what they are being given for and still would like to hold off on tonight dose.
[2023-03-01] VITALS (14 sets, daily range): BP systolic 137–180; BP diastolic 55–84; PULSE 44–68; RESP 17–20; TEMP 36.5–36.9; O2SAT 93–96
[2023-03-01 08:04] LABS: Glucose Point of Care 257 mg/dl (65-105)
[2023-03-01] MEDS: INSULIN GLARGINE (*BKC) 100 UNITS/ML 30 UNITS SUB-Q (08:48)
[2023-03-01] MEDS: INSULIN ASPART (*BKC) 100 UNITS/ML SUB-Q ×4 (08:48→20:25)
[2023-03-01] MEDS: carvediloL 25 MG TABLET PO ×2 (08:54→17:09)
[2023-03-01] MEDS: MECLIZINE HCL 12.5 MG TABLET PO ×4 (08:55→20:25)
[2023-03-01] MEDS: ASPIRIN 81 MG ENTERIC TABLET PO (08:55)
[2023-03-01] MEDS: calcitrioL 0.25 MCG CAPSULE 0.5 MCG PO (08:55)
[2023-03-01] MEDS: PANTOPRAZOLE 40 MG TABLET PO (08:56)
[2023-03-01] MEDS: ROSUVASTATIN 10 MG TABLET PO (08:56)
[2023-03-01] MEDS: SODIUM CHLORIDE 500 MG TABLET 1000 MG PO ×3 (08:56→17:09)
[2023-03-01] MEDS: ENALAPRIL MALEATE 10 MG TABLET PO (08:57)
--- NOTE | 2023-03-01 09:05 | PM.IMPN ---
Progress Note: A&P Assessment and Plan (1) Vertigo: Code(s): R42 - Dizziness and giddiness Status: Acute (2) Hypomagnesemia: Code(s): E83.42 - Hypomagnesemia Status: Acute (3) Acute UTI: Code(s): N39.0 - Urinary tract infection, site not specified Status: Acute (4) Pyuria: Code(s): R82.81 - Pyuria Status: Acute (5) Cellulitis, leg: Code(s): L03.119 - Cellulitis of unspecified part of limb Status: Acute (6) Insulin dependent type 2 diabetes mellitus: Code(s): E11.9 - Type 2 diabetes mellitus without complications; Z79.4 - [facility] (current) use of insulin Status: Acute (7) Acute CVA (cerebrovascular accident): Code(s): I63.9 - Cerebral infarction, unspecified Status: Acute Plan (1) Vertigo: ?Code(s): R42 - Dizziness and giddiness ?Status:?Acute ?Assessment and Plan: She has severe vertigo and nausea. Most likely secondary to acute cerebellar stroke Brain MRI reviewed, 4 mm focal, acute infarct in the left cerebellum Continue meclizine as needed. Neurologic checks q.4 hours. carotid Doppler ultrasounds No hemodynamically significant stenosis of the bilateral internal carotid arteries.Antegrade flow in the bilateral vertebral arteries. Currently patient is on aspirin 81 mg daily p.o., Crestor 10 mg daily p.o., Of the echocardiogram with bubble study Consult neurologist for evaluation aand treatment consult OT/PT (2) Hypomagnesemia:, hyponatremia ?Code(s): E83.42 - Hypomagnesemia ?Status:?Acute ?Assessment and Plan: Magnesium and sodium chloride will be replaced and monitored. (3) Pyuria: ?Code(s): R82.81 - Pyuria ?Status:?Acute ?Assessment and Plan: She endorses mild urgency and frequency; no bacteria noted on microscopy however. Continue ceftriaxone pending urine culture. (4) Cellulitis, leg: ?Code(s): L03.119 - Cellulitis of unspecified part of limb ?Status:?Acute ?Assessment and Plan: Recently diagnosed with lower leg cellulitis. Hold Augmentin while on ceftriaxone. 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 Continue basal insulin. Initiate sliding scale insulin, Accu-Cheks, and hypoglycemic protocol. Check hemoglobin A1c. (6) Benign essential hypertension: ?Code(s): I10 - Essential (primary) hypertension ?Status:?Acute ?Assessment and Plan: Blood pressures were reviewed and they have been running between the 150s to 170s systolic. Continue antihypertensive. Make adjustments accordingly depending on how she trends. Subjective Date/time seen: 03/01/23 09:05 Interval history: Patient feels dizziness improving, no nausea vomiting, brain MRI suggest acute cerebellar stroke about 4 mm Exam Narrative: GENERAL: Pleasant, in no acute distress. Well-nourished. - EYES: EOMI. Anicteric. - HENT: Moist mucous membranes. - LUNGS: Clear to auscultation bilaterally, no wheezing, rhonchi, or rales. - CARDIOVASCULAR: Regular rate and rhythm. No murmur. No JVD. - ABDOMEN: Soft, non-tender and non-distended. No palpable masses. - EXTREMITIES: No edema. Peripheral pulses 2+. Non-tender. - NEUROLOGIC: No focal neurological deficits. CN II-XII grossly intact. Patient has a general weakness, no focal weakness, no vision deficit, able to perform nose to finger test, patient was too weak to perform other neurology tests - PSYCHIATRIC: Awake, Alert and oriented x 3. Appropriate mood and affect. - SKIN: No rashes or lesions. Warm. - LYMPH: No cervical lymphadenopathy. Objective Data Vital Signs Vital Signs: Vital Signs - 24 hr 02/28/23 09:07 02/28/23 13:31 02/28/23 12:00 Temperature 97.9 F 97.1 F L Pulse Rate 52 L 80 55 L Respirat
--- NOTE | 2023-03-01 09:09 | ECHO_ITS ---
Patient Info Name: Ana M Junior Age: 77 years : 1945 Gender: Female Ht: 66 in Wt: 166 lbs BSA: 1.89 m2 HR: 60 bpm BP: 172 / 55 mmHg Heart Rhythm: Bradycardia Technical Quality: Fair Exam Date: 03/01/2023 11:05 AM Exam Location: Echo Lab Patient Status: Inpatient Admit Date: 02/28/2023 Staff Ordering Physician: Erick Ordonez MD Core Feeder: Rajni Devries RDCS Attending Provider: Chilo Dominguez MD Exam Type: CA echo doppler w bubble study Study Info Indications - Acute cerebellar stroke Complete two-dimentional, color flow and Doppler transthoracic echocardiogram is performed with agitated saline and with contrast to opacify the left ventricle and to improve the delineation of the left ventricle endocardial borders. Contrast/Agitated Saline Contrast/Ag. Saline: Agitated Saline Amount: 20.00 ml Existing IV Access: Yes IV Access Condition: patent with no signs of infiltration Contrast/Ag. Saline: Definity Amount: 2.00 ml Administered By: Rajni Devries RDCS Existing IV Access: Yes IV Access Condition: patent with no signs of infiltration Summary 1. Left ventricular chamber dimension is normal. 2. Left ventricular systolic function is normal, estimated at 65-70%. 3. There is severe asymmetric septal increased left ventricular wall thickness. 4. Left ventricular septal wall motion is abnormal with septal motion related to bundle branch block. 5. The left ventricular diastolic function is grade I diastolic dysfunction. 6. No evidence for [id number] intracardiac shunt with injection of agitated saline with and without Valsalva. Clinical correlation advised. 7. There is no aortic valve stenosis. 8. There is trace mitral valve regurgitation. 9. There is mild tricuspid valve regurgitation. 10. No pulmonary hypertension, estimated pulmonary arterial systolic pressure is 22 mmHg. Recommendations * Consider transesophageal echocardiogram if clinically indicated. Left Ventricle Left ventricular chamber dimension is normal. Left ventricular systolic function is normal, estimated at 65-70%. There is severe asymmetric septal increased left ventricular wall thickness. Left ventricular septal wall motion is abnormal with septal motion related to bundle branch block. The left ventricular diastolic function is grade I diastolic dysfunction. Right Ventricle Right ventricular chamber dimension is normal. Right ventricular systolic function is normal. Left Atria Left atrial chamber dimension is mildly enlarged. Right Atria Right atrial chamber dimension is mildly enlarged. Atrial Septum No evidence for [id number] intracardiac shunt with injection of agitated saline with and without Valsalva. Clinical correlation advised. Aortic Valve The aortic valve is trileaflet. There is mild aortic valve sclerosis. There is no aortic valve stenosis. There is no aortic valve regurgitation. Pulmonic Valve The pulmonic valve is normal. There is trace pulmonic regurgitation. Mitral Valve The mitral valve has thickened leaflets. There is trace mitral valve regurgitation. The mitral valve annulus is mildly calcified. Tricuspid Valve The tricuspid valve leaflets are normal. There is mild tricuspid valve regurgitation. No pulmonary hypertension, estimated pulmonary arterial systolic pressure is 22 mmHg. Pericardium/Pleural The pericardium appears normal. There is no pericardial effusion. Inferior Vena Cava Normal inferior vena cava with >50
[2023-03-01 11:19] LABS: Glucose Point of Care 316 mg/dl (65-105)
[2023-03-01] MEDS: PERFLUTREN LIPID MICROSPHERES 1.5 ML VIAL DILUTED TO 10 ML TOTAL VOLUME IV PUSH (11:49)
--- NOTE | 2023-03-01 12:21 | IVDEFINITY ---
Prior to administration of IV Definity the patient was educated on the risks and benefits of the imaging enhancing agent including potential adverse side effects. The patient verbalized understanding. Allergies were verified. No exclusion criteria were identified and at least one of the following inclusion criteria were met: 1) physician request, 2) patient technically difficult to image (per the [place] [employer] guidelines of two or more segments not discernable within the apical view), or 3) questionable left ventricular function. ?
[2023-03-01 17:05] LABS: Glucose Point of Care 274 mg/dl (65-105)
[2023-03-01 20:22] LABS: Glucose Point of Care 278 mg/dl (65-105)
[2023-03-02] VITALS (11 sets, daily range): BP systolic 136–169; BP diastolic 51–66; PULSE 48–66; RESP 16–20; TEMP 36.2–36.9; O2SAT 93–95
[2023-03-02] MEDS: ACETAMINOPHEN 325 MG TABLET 650 MG PO ×2 (00:08→18:54)
[2023-03-02 07:58] LABS: Glucose Point of Care 241 mg/dl (65-105)
[2023-03-02] MEDS: INSULIN ASPART (*BKC) 100 UNITS/ML SUB-Q ×4 (08:01→20:52)
[2023-03-02] MEDS: SODIUM CHLORIDE 500 MG TABLET 1000 MG PO ×3 (08:05→16:38)
[2023-03-02] MEDS: carvediloL 25 MG TABLET PO ×2 (08:05→16:37)
[2023-03-02] MEDS: PANTOPRAZOLE 40 MG TABLET PO (08:05)
[2023-03-02] MEDS: ASPIRIN 81 MG ENTERIC TABLET PO (08:06)
[2023-03-02] MEDS: ROSUVASTATIN 10 MG TABLET PO (08:06)
[2023-03-02] MEDS: ENALAPRIL MALEATE 10 MG TABLET PO (08:06)
[2023-03-02] MEDS: calcitrioL 0.25 MCG CAPSULE 0.5 MCG PO (08:06)
[2023-03-02] MEDS: MECLIZINE HCL 12.5 MG TABLET PO ×4 (08:06→20:52)
[2023-03-02] MEDS: INSULIN GLARGINE (*BKC) 100 UNITS/ML 30 UNITS SUB-Q (08:46)
--- NOTE | 2023-03-02 11:26 | WPDNEURCNPN ---
Assessment and Plan Assessment and plan (1) Acute CVA (cerebrovascular accident): Code(s): I63.9 - Cerebral infarction, unspecified Status: Acute Plan 1. Acute infarct in left cerebellum 4mm size with negative CT scan of the head without evidence of any bleed. 2. Diabetes mellitus with neuropathy 3. Posterior circulation stroke with negative Doppler study of the carotid will obtain the CTA of the brain. Medications are being continued as such as aspirin 81mg daily rosuvastatin 10mg daily once the CTA is done he might readjust the medication Consult date: 03/02/23 HPI: Ana M Junior is a 77 year old female Admitted to the hospital through the emergency room for the complaints of nausea of [id number] duration along with 3 episodes of loose motions and history of cough for 3 weeks duration without associated fever or chills patient has been taking multiple medications at home including aspirin 81mg daily, carvedilol 25mg twice a day, enalapril 10mg daily, amoxicillin 500mg 3 times a day, insulin accordingly, she is not allergic to any medications, she does have ongoing history of coronary artery disease with underlying hypertension, diabetes mellitus with retinopathy and neuropathy, and history of sciatica she has also undergone surgery on her lower back, she has history of years smoked 20 with smoking pack years of 20 but at present she is former smoker and never alcohol intake , initial evaluation in the emergency room revealed her to have normal CBC elevated blood sugar with glycosuria, negative serology, chest x-ray with cardiomegaly, negative CT scan of the head with no bleed, and 4mm focal acute infarct in left cerebellum on MRI of the brain, Doppler study of the carotid negative she also has had the MRI of the lower back during her last admission when she was documented her posterior fusion procedure at L5-S1 was stable [facility] Past Medical History Medical History Benign essential hypertension Coronary artery disease Cystocele with uterine prolapse Status post colpopexy. 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 History of lumbar laminectomy History of tonsillectomy and adenoidectomy History of total abdominal hysterectomy and bilateral salpingo-oophorectomy History of vein stripping Family History Family History Mother History of stroke Other Diabetes mellitus Social History Social History Social History: Surrogate medical decision maker: Mary Martinez, daughter. Code status: Full code. Smoking packs per day: 1 Smoking cigarettes per day: 20.0 Years smoked: 20 Smoking pack-years: 20.00 Smoking status: Former smoker Alcohol intake: never Substance use: never Substance use type: does not use Lack of Transportation: No Lack of Food: Never True Current Housing: I Have Housing Concerned About Future Housing: No Difficulty Paying Gas/Electric Bills: No Difficulty Paying for Meds: No Currently Unemployed: No Education: High School Diploma/GED Difficulty w/ Childcare or Family Care: No Living arrangements: with family Occupation/Education: retired Spiritual care concerns: No Agree to blood products: Yes Meds Home
[2023-03-02 12:28] LABS: Glucose Point of Care 255 mg/dl (65-105)
--- NOTE | 2023-03-02 13:32 | PM.IMPN ---
Progress Note: A&P Assessment and Plan (1) Vertigo: Code(s): R42 - Dizziness and giddiness Status: Acute (2) Hypomagnesemia: Code(s): E83.42 - Hypomagnesemia Status: Acute (3) Acute UTI: Code(s): N39.0 - Urinary tract infection, site not specified Status: Acute (4) Pyuria: Code(s): R82.81 - Pyuria Status: Acute (5) Cellulitis, leg: Code(s): L03.119 - Cellulitis of unspecified part of limb Status: Acute (6) Insulin dependent type 2 diabetes mellitus: Code(s): E11.9 - Type 2 diabetes mellitus without complications; Z79.4 - [facility] (current) use of insulin Status: Acute (7) Acute CVA (cerebrovascular accident): Code(s): I63.9 - Cerebral infarction, unspecified Status: Acute Plan (1) Vertigo: ?Code(s): R42 - Dizziness and giddiness ?Status:?Acute ?Assessment and Plan: She has severe vertigo and nausea. Most likely secondary to acute cerebellar stroke Brain MRI reviewed, 4 mm focal, acute infarct in the left cerebellum Continue meclizine as needed. Neurologic checks q.4 hours. carotid Doppler ultrasounds No hemodynamically significant stenosis of the bilateral internal carotid arteries.Antegrade flow in the bilateral vertebral arteries. Currently patient is on aspirin 81 mg daily p.o., Crestor 10 mg daily p.o., Of the echocardiogram with bubble study Consult neurologist for evaluation aand treatment consult OT/PT (2) Hypomagnesemia:, hyponatremia ?Code(s): E83.42 - Hypomagnesemia ?Status:?Acute ?Assessment and Plan: Resolved (3) Pyuria: ?Code(s): R82.81 - Pyuria ?Status:?Acute ?Assessment and Plan: UC is negative DC iv rocephin (4) Cellulitis, leg: ?Code(s): L03.119 - Cellulitis of unspecified part of limb ?Status:?Acute ?Assessment and Plan: Recently diagnosed with lower leg cellulitis. can restart doxycycline (5) Insulin dependent type 2 diabetes mellitus: ?Code(s): E11.9 - Type 2 diabetes mellitus without complications; Z79.4 - [facility] (current) use of insulin ?Status:?Acute ?Assessment and Plan: Random glucose was 220 on arrival. Continue basal insulin. Initiate sliding scale insulin, Accu-Cheks, and hypoglycemic protocol. Check hemoglobin A1c. (6) Benign essential hypertension: ?Code(s): I10 - Essential (primary) hypertension ?Status:?Acute ?Assessment and Plan: Blood pressures were reviewed and they have been running between the 150s to 170s systolic. Continue antihypertensive. Make adjustments accordingly depending on how she trends. Subjective Date/time seen: 03/02/23 13:32 Interval history: Patient feels dizziness improving, no nausea vomiting, brain MRI suggest acute cerebellar stroke about 4 mm pt seen by neurology await PT/ OT and ST evaluation Review of Systems Review of Systems: dizziness +BL leg weakness Exam Narrative: GENERAL: Pleasant, in no acute distress. Well-nourished. - EYES: EOMI. Anicteric. - HENT: Moist mucous membranes. - LUNGS: Clear to auscultation bilaterally, no wheezing, rhonchi, or rales. - CARDIOVASCULAR: Regular rate and rhythm. No murmur. No JVD. - ABDOMEN: Soft, non-tender and non-distended. No palpable masses. - EXTREMITIES: No edema. Peripheral pulses 2+. Non-tender. - NEUROLOGIC: No focal neurological deficits. CN II-XII grossly intact. Patient has a general weakness, no focal weakness, no vision deficit, able to perform nose to finger test, patient was too weak to perform other neurology tests - PSYCHIATRIC: Awake, Alert and oriented x 3. Appropriate mood and affect. - SKIN: No rashes or lesions. Warm. - LYMPH: No cervical lymphadenopathy. Objective Data Vital Signs Vital Signs: Vital Signs - 24 hr 03/01/23 14:00 03/01/23 14:02 03/01/23 14:04 Temperature 36.8 C Pulse Rate 54 L 55 L 58 L Respiratory Rate 20 20 20 Blood Pressure 137/
[2023-03-02 17:32] LABS: Glucose Point of Care 276 mg/dl (65-105)
[2023-03-02 20:30] LABS: Glucose Point of Care 343 mg/dl (65-105)
[2023-03-02] MEDS: DOXYCYCLINE HYCLATE 100 MG TABLET PO (20:52)
[2023-03-03] VITALS (12 sets, daily range): BP systolic 102–159; BP diastolic 48–78; PULSE 44–84; RESP 14–18; TEMP 36.7–37.2; O2SAT 98–100
[2023-03-03 08:00] LABS: Glucose Point of Care 214 mg/dl (65-105)
[2023-03-03] MEDS: calcitrioL 0.25 MCG CAPSULE 0.5 MCG PO (09:01)
[2023-03-03] MEDS: ENALAPRIL MALEATE 10 MG TABLET PO (09:02)
[2023-03-03] MEDS: carvediloL 25 MG TABLET PO ×2 (09:02→17:24)
[2023-03-03] MEDS: DOXYCYCLINE HYCLATE 100 MG TABLET PO ×2 (09:02→20:06)
[2023-03-03] MEDS: ROSUVASTATIN 10 MG TABLET PO (09:02)
[2023-03-03] MEDS: SODIUM CHLORIDE 500 MG TABLET 1000 MG PO ×3 (09:02→17:23)
[2023-03-03] MEDS: ASPIRIN 81 MG ENTERIC TABLET PO (09:02)
[2023-03-03] MEDS: MECLIZINE HCL 12.5 MG TABLET PO ×4 (09:02→20:06)
[2023-03-03] MEDS: PANTOPRAZOLE 40 MG TABLET PO (09:02)
[2023-03-03] MEDS: INSULIN ASPART (*BKC) 100 UNITS/ML SUB-Q ×4 (09:04→21:51)
[2023-03-03] MEDS: INSULIN GLARGINE (*BKC) 100 UNITS/ML 30 UNITS SUB-Q (09:08)
--- NOTE | 2023-03-03 11:13 | PCSTNOTE ---
Modified barium swallow study completed. Please refer to bedside swallowing evaluation report from 03/02/23 for additional history. Results of modified barium swallow study are within functional limits for all consistencies (thin, mildly thick, pureed, mixed, and solid) and methods of presentation (spoon, cup, straw). Recommendations: regular texture diet with thin liquids. Thank you for the referral of this patient.
[2023-03-03 11:55] LABS: Glucose Point of Care 328 mg/dl (65-105)
--- NOTE | 2023-03-03 13:15 | PM.IMPN ---
Progress Note: A&P Assessment and Plan (1) Vertigo: Code(s): R42 - Dizziness and giddiness Status: Acute (2) Hypomagnesemia: Code(s): E83.42 - Hypomagnesemia Status: Acute (3) Acute UTI: Code(s): N39.0 - Urinary tract infection, site not specified Status: Acute (4) Pyuria: Code(s): R82.81 - Pyuria Status: Acute (5) Cellulitis, leg: Code(s): L03.119 - Cellulitis of unspecified part of limb Status: Acute (6) Insulin dependent type 2 diabetes mellitus: Code(s): E11.9 - Type 2 diabetes mellitus without complications; Z79.4 - custodial (current) use of insulin Status: Acute (7) Acute CVA (cerebrovascular accident): Code(s): I63.9 - Cerebral infarction, unspecified Status: Acute Plan (1) Vertigo: ?Code(s): R42 - Dizziness and giddiness ?Status:?Acute ?Assessment and Plan: She has severe vertigo and nausea. Most likely secondary to acute cerebellar stroke Brain MRI reviewed, 4 mm focal, acute infarct in the left cerebellum Continue meclizine as needed. Neurologic checks q.4 hours. carotid Doppler ultrasounds No hemodynamically significant stenosis of the bilateral internal carotid arteries.Antegrade flow in the bilateral vertebral arteries. Currently patient is on aspirin 81 mg daily p.o., Crestor 10 mg daily p.o., Of the echocardiogram with bubble study Consult neurologist for evaluation and treatment consult OT/PT Pt passed her swallow test Pt benefits from rehab placement (2) Hypomagnesemia:, hyponatremia ?Code(s): E83.42 - Hypomagnesemia ?Status:?Acute ?Assessment and Plan: Resolved (3) Pyuria: ?Code(s): R82.81 - Pyuria ?Status:?Acute ?Assessment and Plan: UC is negative DC iv rocephin (4) Cellulitis, leg: ?Code(s): L03.119 - Cellulitis of unspecified part of limb ?Status:?Acute ?Assessment and Plan: Recently diagnosed with lower leg cellulitis. can restart doxycycline (5) Insulin dependent type 2 diabetes mellitus: ?Code(s): E11.9 - Type 2 diabetes mellitus without complications; Z79.4 - terminal carman (current) use of insulin ?Status:?Acute ?Assessment and Plan: Random glucose was 220 on arrival. Continue basal insulin. Initiate sliding scale insulin, Accu-Cheks, and hypoglycemic protocol. Check hemoglobin A1c. (6) Benign essential hypertension: ?Code(s): I10 - Essential (primary) hypertension ?Status:?Acute ?Assessment and Plan: Blood pressures were reviewed and they have been running between the 150s to 170s systolic. Continue antihypertensive. Make adjustments accordingly depending on how she trends. Subjective Date/time seen: 03/03/23 13:15 Interval history: Patient feels dizziness improving, no nausea vomiting, brain MRI suggest acute cerebellar stroke about 4 mm Pt seen by neurology Pt seen by PT/ OT and ST Pt benefits from rehab placement Review of Systems Review of Systems: Mild BL leg weakness Exam Narrative: GENERAL: Pleasant, in no acute distress. Well-nourished. - EYES: EOMI. Anicteric. - HENT: Moist mucous membranes. - LUNGS: Clear to auscultation bilaterally, no wheezing, rhonchi, or rales. - CARDIOVASCULAR: Regular rate and rhythm. No murmur. No JVD. - ABDOMEN: Soft, non-tender and non-distended. No palpable masses. - EXTREMITIES: No edema. Peripheral pulses 2+. Non-tender. - NEUROLOGIC: No focal neurological deficits. CN II-XII grossly intact. Patient has a general weakness, no focal weakness, no vision deficit, able to perform nose to finger test, patient was too weak to perform other neurology tests - PSYCHIATRIC: Awake, Alert and oriented x 3. Appropriate mood and affect. - SKIN: No rashes or lesions. Warm. - LYMPH: No cervical lymphadenopathy. Objective Data Vital Signs Vital Signs: Vital Signs - 24 hr 03/02/23 14:00 03/02/23 16:00 03/02/23 16:37 Temper
[2023-03-03 16:47] LABS: Glucose Point of Care 222 mg/dl (65-105)
[2023-03-03] MEDS: ONDANSETRON INJ 4 MG/2 ML VIAL IV PUSH (21:58)
[2023-03-03 22:29] LABS: Glucose Point of Care 256 mg/dl (65-105)
[2023-03-04] VITALS (10 sets, daily range): BP systolic 132–154; BP diastolic 50–61; PULSE 51–68; RESP 16–20; TEMP 36.4–36.8; O2SAT 95–100
[2023-03-04 07:38] LABS: Glucose Point of Care 250 mg/dl (65-105)
[2023-03-04] MEDS: INSULIN ASPART (*BKC) 100 UNITS/ML SUB-Q ×4 (08:08→20:38)
[2023-03-04] MEDS: MECLIZINE HCL 12.5 MG TABLET PO ×4 (08:11→20:38)
[2023-03-04] MEDS: calcitrioL 0.25 MCG CAPSULE 0.5 MCG PO (08:11)
[2023-03-04] MEDS: ASPIRIN 81 MG ENTERIC TABLET PO (08:12)
[2023-03-04] MEDS: carvediloL 25 MG TABLET PO ×2 (08:12→16:25)
[2023-03-04] MEDS: DOXYCYCLINE HYCLATE 100 MG TABLET PO ×2 (08:12→20:38)
[2023-03-04] MEDS: ROSUVASTATIN 10 MG TABLET PO (08:12)
[2023-03-04] MEDS: SODIUM CHLORIDE 500 MG TABLET 1000 MG PO ×3 (08:12→16:25)
[2023-03-04] MEDS: PANTOPRAZOLE 40 MG TABLET PO (08:12)
[2023-03-04] MEDS: ENALAPRIL MALEATE 10 MG TABLET PO (08:12)
[2023-03-04] MEDS: ONDANSETRON INJ 4 MG/2 ML VIAL IV PUSH ×2 (08:43→16:43)
--- NOTE | 2023-03-04 08:48 | PCOTNOTE ---
Attempted to see Patient this A.M. Patient very nauseated at this time, declined to participate
--- NOTE | 2023-03-04 09:27 | PCPTNOTE ---
The patient treatment was not able to be completed at this time due to patient c/o nausea. Will plan to continue treatment per plan of care.
[2023-03-04] MEDS: INSULIN GLARGINE (*BKC) 100 UNITS/ML 30 UNITS SUB-Q (10:19)
--- NOTE | 2023-03-04 11:32 | WPDNEUROPN ---
Progress Note: A&P Assessment and Plan (1) Acute CVA (cerebrovascular accident): Code(s): I63.9 - Cerebral infarction, unspecified Status: Acute (2) Vertigo: Code(s): R42 - Dizziness and giddiness Status: Acute (3) Benign essential hypertension: Code(s): I10 - Essential (primary) hypertension Status: Acute (4) Coronary artery disease: Code(s): I25.10 - Atherosclerotic heart disease of [place] coronary artery without angina pectoris Status: Acute (5) Insulin dependent type 2 diabetes mellitus: Code(s): E11.9 - Type 2 diabetes mellitus without complications; Z79.4 - [facility] (current) use of insulin Status: Acute (6) Hyperlipidemia: Qualifiers: Hyperlipidemia type: mixed hyperlipidemia Qualified Code(s): E78.2 - Mixed hyperlipidemia Code(s): E78.5 - Hyperlipidemia, unspecified Status: Acute Plan Ms. Childress is a 77 year old female with a history of diabetes, HTN, HLD, cardiomyopathy presenting due to severe vertigo. She was ultimately found to have acute L cerebellar infarct. She obviously has several risk factors for stroke. - Obtain CTA brain to evaluate for intracranial stenosis - Continue Aspirin 81mg daily - Add Plavix 75mg x 3 weeks - If CTA is unrevealing, would like her to follow up with her Film Historian as outpatient -- may need more detailed cardiac testing such as holter/EMRE - Check LDL; goal <70 -- may need to adjust statin Subjective Date/time seen: 03/04/23 11:32 Interval history: Ms. Childress is a 77 year female with a history of HTN, CAD, diabetes, HLD, cardiomyopathy, prior [place] presenting for evaluation of vertigo. She was ultimately found to have a punctate L cerebellar infarct (acute). Her blood pressure on admission was elevated to 180s systolic. She had carotid Doppler study which was negative. She has not had any intracranial vessel imaging done yet. At baseline she was taking a baby aspirin and rosuvastatin 10mg daily. Her last LDL was from November 2022 which was 101. Her A1c from this admission is 8.7. Today she is complaining of nausea and throwing up phlegm. Surface echocardiogram has been done and unrevealing -- no shunt or clot noted, EF is normal. She does not smoke. She has a Film Historian (Dr. Buenrostro) Review of Systems Review of Systems: All systems reviewed & are unremarkable except as noted in HPI and below Exam Const: General: comfortable and no acute distress HENMT: Mouth: Yes moist mucous membranes Eyes: Pupils: Equal, round and reactive pupils present EOM: EOMs intact bilaterally Resp: Effort & Inspection: normal respiratory effort Skin: General skin exam: normal color Neuro: Other: Pupils equal and reactive bilaterally, EOMI, face symmetric, facial sensation intact, tongue protrudes midline, palate midline. Shoulder shrug normal. Strength is symmetric and age appropriate. Sensation intact throughout, FNF normal bilaterally. Language comprehension and fluency intact. Gait deferred. Extrem: General: normal to inspection Psych: Mental Status: mental status grossly normal Affect: normal affect Objective Data Vital Signs Vital Signs: Vital Signs - 24 hr 03/03/23 12:00 03/03/23 14:00 03/03/23 16:00 Temperature 37.2 C Pulse Rate 56 L 82 Respiratory Rate 14 Blood Pressure 102/78 151/48 H Pulse Oximetry 98 Oxygen Delivery 03/03/23 16:05 03/03/23 16:10 03/03/23 17:24 Temperature Pulse Rate 82 Respiratory Rate Blood Pressure 153/52 H 151/62 H Pulse Oximetry Oxygen Delivery 03/03/23 16:00 03/03/23 21:00 03/03/23 21:00 Temperature 36.7 C 36.7 C Pulse Rate 60 84 57 L Respiratory Rate 18 18 Blood Pressure 130/73 149/53 H Pulse Oximetry 100 Oxygen Delivery 03/03/23 21:00 03/03/23 20:00 03/04/23 00:00 Temperature 36.7 C Pulse Rate 62 54 L 56 L Respiratory Rate 18 Blood Pressure 150/57 H Pulse Oximetry Oxygen Deliv
[2023-03-04 11:34] LABS: Glucose Point of Care 257 mg/dl (65-105)
--- NOTE | 2023-03-04 14:16 | PM.IMPN ---
Progress Note: A&P Assessment and Plan (1) Vertigo: Code(s): R42 - Dizziness and giddiness Status: Acute (2) Hypomagnesemia: Code(s): E83.42 - Hypomagnesemia Status: Acute (3) Acute UTI: Code(s): N39.0 - Urinary tract infection, site not specified Status: Acute (4) Pyuria: Code(s): R82.81 - Pyuria Status: Acute (5) Cellulitis, leg: Code(s): L03.119 - Cellulitis of unspecified part of limb Status: Acute (6) Insulin dependent type 2 diabetes mellitus: Code(s): E11.9 - Type 2 diabetes mellitus without complications; Z79.4 - residential (current) use of insulin Status: Acute (7) Acute CVA (cerebrovascular accident): Code(s): I63.9 - Cerebral infarction, unspecified Status: Acute Plan (1) Vertigo: ?Code(s): R42 - Dizziness and giddiness ?Status:?Acute ?Assessment and Plan: She has severe vertigo and nausea. Most likely secondary to acute cerebellar stroke Brain MRI reviewed, 4 mm focal, acute infarct in the left cerebellum Continue meclizine as needed. Neurologic checks q.4 hours. carotid Doppler ultrasounds No hemodynamically significant stenosis of the bilateral internal carotid arteries.Antegrade flow in the bilateral vertebral arteries. Currently patient is on aspirin 81 mg daily p.o., Crestor 10 mg daily p.o., Of the echocardiogram with bubble study Consult neurologist for evaluation and treatment consult OT/PT Pt passed her swallow test Pt benefits from rehab placement pt to have CTA lipid panel ordered, plavix and ASA ordered (2) Hypomagnesemia:, hyponatremia ?Code(s): E83.42 - Hypomagnesemia ?Status:?Acute ?Assessment and Plan: Resolved (3) Pyuria: ?Code(s): R82.81 - Pyuria ?Status:?Acute ?Assessment and Plan: UC is negative DC iv rocephin (4) Cellulitis, leg: ?Code(s): L03.119 - Cellulitis of unspecified part of limb ?Status:?Acute ?Assessment and Plan: Recently diagnosed with lower leg cellulitis. 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 Continue basal insulin. Initiate sliding scale insulin, Accu-Cheks, and hypoglycemic protocol. Check hemoglobin A1c. (6) Benign essential hypertension: ?Code(s): I10 - Essential (primary) hypertension ?Status:?Acute ?Assessment and Plan: Blood pressures were reviewed and they have been running between the 150s to 170s systolic. Continue antihypertensive. Make adjustments accordingly depending on how she trends. Subjective Date/time seen: 03/04/23 14:16 Interval history: Patient feels dizziness improving, no nausea vomiting, brain MRI suggest acute cerebellar stroke about 4 mm Pt seen by neurology Pt seen by PT/ OT and ST Pt benefits from rehab placement Pt awaiting CTA today Continue therapy in hospital pt would like to go home with home theraphy Review of Systems Review of Systems: mild leg weakness Exam Narrative: GENERAL: Pleasant, in no acute distress. Well-nourished. - EYES: EOMI. Anicteric. - HENT: Moist mucous membranes. - LUNGS: Clear to auscultation bilaterally, no wheezing, rhonchi, or rales. - CARDIOVASCULAR: Regular rate and rhythm. No murmur. No JVD. - ABDOMEN: Soft, non-tender and non-distended. No palpable masses. - EXTREMITIES: No edema. Peripheral pulses 2+. Non-tender. - NEUROLOGIC: No focal neurological deficits. CN II-XII grossly intact. Patient has a general weakness, no focal weakness, no vision deficit, able to perform nose to finger test, patient was too weak to perform other neurology tests - PSYCHIATRIC: Awake, Alert and oriented x 3. Appropriate mood and affect. - SKIN: No rashes or lesions. Warm. - LYMPH: N
[2023-03-04 14:42] LABS: Cholesterol 178 mg/dL (0-200); HDL Direct 39 mg/dL; Triglycerides 141 mg/dL (<150)
[2023-03-04 14:53] LABS: LDL Cholesterol Direct 94 mg/dL
[2023-03-04 16:32] LABS: Glucose Point of Care 244 mg/dl (65-105)
[2023-03-04 20:33] LABS: Glucose Point of Care 260 mg/dl (65-105)
[2023-03-05] VITALS (13 sets, daily range): BP systolic 143–164; BP diastolic 42–77; PULSE 43–66; RESP 16–18; TEMP 36.2–36.7; O2SAT 96–100
[2023-03-05] MEDS: ACETAMINOPHEN 325 MG TABLET 650 MG PO (05:32)
[2023-03-05 08:23] LABS: Glucose Point of Care 224 mg/dl (65-105)
[2023-03-05] MEDS: DOXYCYCLINE HYCLATE 100 MG TABLET PO ×2 (08:32→20:19)
[2023-03-05] MEDS: ASPIRIN 81 MG ENTERIC TABLET PO (08:32)
[2023-03-05] MEDS: CLOPIDOGREL BISULFATE 75 MG TABLET PO (08:32)
[2023-03-05] MEDS: ROSUVASTATIN 10 MG TABLET PO (08:32)
[2023-03-05] MEDS: PANTOPRAZOLE 40 MG TABLET PO (08:32)
[2023-03-05] MEDS: MECLIZINE HCL 12.5 MG TABLET PO ×4 (08:32→20:19)
[2023-03-05] MEDS: SODIUM CHLORIDE 500 MG TABLET 1000 MG PO ×3 (08:32→17:05)
[2023-03-05] MEDS: calcitrioL 0.25 MCG CAPSULE 0.5 MCG PO (08:32)
[2023-03-05] MEDS: INSULIN ASPART (*BKC) 100 UNITS/ML SUB-Q ×4 (08:33→20:25)
[2023-03-05] MEDS: INSULIN GLARGINE (*BKC) 100 UNITS/ML 30 UNITS SUB-Q (08:36)
--- NOTE | 2023-03-05 09:39 | PM.IMPN ---
Progress Note: A&P Assessment and Plan (1) Vertigo: Code(s): R42 - Dizziness and giddiness Status: Acute Assessment and Plan: She has severe vertigo and nausea. Most likely secondary to acute cerebellar stroke Brain MRI reviewed, 4 mm focal, acute infarct in the left cerebellum Continue meclizine as needed. Neurologic checks q.4 hours. carotid Doppler ultrasounds No hemodynamically significant stenosis of the bilateral internal carotid arteries.Antegrade flow in the bilateral vertebral arteries. Currently patient is on aspirin 81 mg daily p.o., Crestor 10 mg daily p.o., Echocardiogram with bubble study wnl Consult neurologist for evaluation and treatment consult OT/PT Pt passed her swallow test Pt benefits from rehab placement CTA showed moderate stenosis of B/L ICA and B/L P2 posterior cerebral artery segments lipid panel ordered, plavix and ASA ordered (2) Hypomagnesemia: Code(s): E83.42 - Hypomagnesemia Status: Acute Assessment and Plan: Replete and recheck, monitor (3) Pyuria: Code(s): R82.81 - Pyuria Status: Acute Assessment and Plan: Culture negative, antibiotics discontinue (4) Cellulitis, leg: Code(s): L03.119 - Cellulitis of unspecified part of limb Status: Acute Assessment and Plan: Continue doxycycline (5) Insulin dependent type 2 diabetes mellitus: Code(s): E11.9 - Type 2 diabetes mellitus without complications; Z79.4 - long term care social worker (current) use of insulin Status: Acute Assessment and Plan: Accu-Cheks, sliding scale insulin Blood glucose reviewed 03/05 (6) Acute CVA (cerebrovascular accident): Code(s): I63.9 - Cerebral infarction, unspecified Status: Acute (7) Benign essential hypertension: Code(s): I10 - Essential (primary) hypertension Status: Acute Assessment and Plan: Blood pressure reviewed 03/05 Plan DVT prophylaxis with SCDs GI prophylaxis not indicated Code status full code Subjective Date/time seen: 03/05/23 09:39 Interval history: 77-year-old female with insulin-dependent type 2 diabetes mellitus, coronary artery disease status post bypass, hypertension, hiatal hernia with GERD, and other comorbidities who presented to the emergency department via EMS from home for evaluation multiple complaints and found to have acute CVA. No overnight events noted. No chest pain or shortness of breath. No nausea, vomiting or diarrhea. No fevers or chills. Review of Systems Review of Systems: 12 point review of systems was assessed and was negative except as noted in the HPI Exam Narrative: General: No acute distress, alert and oriented per baseline HEENT: Atraumatic, normocephalic, mucous membranes moist CV: Regular rate and rhythm, S1, S2 Lungs: Clear to auscultation bilaterally, no rales or crackles noted, no wheezes, good air entry Abdomen: Soft, nontender, nondistended Extremities: Normal to inspection Skin: No rashes noted, no lesions or wounds seen Psych: Euthymic, normal affect Objective Data Vital Signs Vital Signs: Vital Signs - 24 hr 03/04/23 12:00 03/04/23 14:00 03/04/23 16:00 Temperature 98.2 F Pulse Rate 54 L 55 L 54 L Respiratory Rate 18 Blood Pressure 132/50 L Pulse Oximetry 100 03/04/23 22:00 03/04/23 20:38 03/05/23 00:00 Temperature 97.5 F L Pulse Rate 68 55 L 61 Respiratory Rate 16 Blood Pressure 133/61 Pulse Oximetry 96 03/05/23 04:00 03/05/23 05:23 Temperature 98.1 F Pulse Rate 44 L 47 L Respiratory Rate 18 Blood Pressure 147/63 H Pulse Oximetry 100 Intake/Output Intake/Output: Intake & Output 03/02/23 03/03/23 03/04/23 03/05/23 23:59 23:59 23:59 23:59 Intake Total 650 1038 1026 340 Output Total 1200 500 350 Balance -550 538 676 340 Meds/Results Medications: Active Medications Generic Name Dose Route Start Last Admin Trade Name
[2023-03-05 09:59] LABS: Basophils Absolute Auto 0.1 K/mm3 (0.0-0.1); Basophils Percent Auto 0.8 % (0.2-1.2); Eosinophils Absolute Auto 0.3 K/mm3 (0-0.3); Eosinophils Percent Auto 3.9 % (0-4.4); Hematocrit 37.7 % (37.0-47.0); Hemoglobin 12.3 g/dL (12.0-15.0); Immature Granulocyte Absolute 0.04 K/mm3 (0.00-0.031); Immature Granulocyte Percent A 0.6 % (0-0.5); Lymphocytes Absolute Auto 1.45 K/mm3 (0.9-3.2); Lymphocytes Percent Auto 20.1 % (18.3-44.2); Mean Corpuscular HGB Conc 32.6 g/dl (32-36); Mean Corpuscular Hemoglobin 31.3 pg (26-34); Mean Corpuscular Volume 95.9 fl (80-100); Mean Platelet Volume 11.5 fl (7.4-10.4); Monocytes Absolute Auto 0.8 K/mm3 (0.1-0.6); Monocytes Percent Auto 11.1 % (2.6-8.5); Neutrophils Absolute Auto 4.6 K/mm3 (1.3-6.7); Neutrophils Percent Auto 63.5 % (45.5-73.1); Platelet Count Result 212 k/mm3 (150-375); Red Blood Count 3.93 M/mm3 (4.2-5.4); Red Cell Distribution Width 12.4 % (11.5-14.5); White Blood Count 7.2 K/mm3 (4.5-10.0)
[2023-03-05 10:11] LABS: Alanine Aminotransferase 14 U/L (6-35); Albumin Level 3.7 g/dL (3.5-5.1); Alkaline Phosphatase 56 U/L (38-126); Anion Gap 10 mmol/L (8-16); Aspartate Amino Transferase 19 U/L (14-36); Bilirubin,Total 0.6 mg/dL (0.2-1.3); Blood Urea Nitrogen 24 mg/dL (7-17); Calcium 9.5 mg/dL (8.4-10.2); Carbon Dioxide 28 mmol/L (22-30); Chloride 101 mmol/L (98-107); Estimated CRCL calculation 53 ml/min; Estimated Glomerular Filt Rate > 60; Glucose 278 mg/dL (65-110); Potassium 4.1 mmol/L (3.4-5.0); Sodium 139 mmol/L (137-145)
[2023-03-05 11:40] LABS: Glucose Point of Care 262 mg/dl (65-105)
--- NOTE | 2023-03-05 11:41 | WPDNEUROPN ---
Progress Note: A&P Assessment and Plan (1) Acute CVA (cerebrovascular accident): Code(s): I63.9 - Cerebral infarction, unspecified Status: Acute (2) Vertigo: Code(s): R42 - Dizziness and giddiness Status: Acute (3) Benign essential hypertension: Code(s): I10 - Essential (primary) hypertension Status: Acute (4) Coronary artery disease: Code(s): I25.10 - Atherosclerotic heart disease of [place] coronary artery without angina pectoris Status: Acute (5) Insulin dependent type 2 diabetes mellitus: Code(s): E11.9 - Type 2 diabetes mellitus without complications; Z79.4 - skilled nursing (current) use of insulin Status: Acute (6) Hyperlipidemia: Qualifiers: Hyperlipidemia type: mixed hyperlipidemia Qualified Code(s): E78.2 - Mixed hyperlipidemia Code(s): E78.5 - Hyperlipidemia, unspecified Status: Acute Plan Ms. Childress is a 77 year old female with a history of diabetes, HTN, HLD, cardiomyopathy presenting due to severe vertigo. She was ultimately found to have acute L cerebellar infarct -- etiology could be small vessel stroke. She obviously has several risk factors for stroke, but no intracranial stenosis in cerebellar feeding arteries -- only anterior circulation and P2 (which would be distal to cerebellum). Also considering embolic from more proximal source, although distribution of stroke is not necessarily suggestive of this. - Continue Aspirin 81mg daily - Add Plavix 75mg x 3 weeks - LDL is 94, goal <70; adjust accordingly - Close follow-up with Cardiology -- may need to consider additional cardiac testing such as holter Subjective Date/time seen: 03/05/23 11:41 Interval history: Ms. Childress is a 77 year female with a history of HTN, CAD, diabetes, HLD, cardiomyopathy, prior [place] presenting for evaluation of vertigo. She was ultimately found to have a punctate L cerebellar infarct (acute). Her blood pressure on admission was elevated to 180s systolic. She had carotid Doppler study which was negative. She has not had any intracranial vessel imaging done yet. At baseline she was taking a baby aspirin and rosuvastatin 10mg daily. Her last LDL was from November 2022 which was 101. Her A1c from this admission is 8.7. Today she is complaining of nausea and throwing up phlegm. Surface echocardiogram has been done and unrevealing -- no shunt or clot noted, EF is normal. She does not smoke. She has a Elevator Troubleshooter (Dr. Buenrostro). CTA brain/carotid showed moderate stenosis in bilateral ICA and bilateral P2 segment. Review of Systems Review of Systems: All systems reviewed & are unremarkable except as noted in HPI and below Exam Const: General: comfortable and no acute distress HENMT: Mouth: Yes moist mucous membranes Eyes: Pupils: Equal, round and reactive pupils present EOM: EOMs intact bilaterally Resp: Effort & Inspection: normal respiratory effort Skin: General skin exam: normal color Neuro: Other: Pupils equal and reactive bilaterally, EOMI, face symmetric, facial sensation intact, tongue protrudes midline, palate midline. Shoulder shrug normal. Strength is symmetric and age appropriate. Sensation intact throughout, FNF normal on R, mild dysmetria on L. Language comprehension and fluency intact. Gait deferred. Extrem: General: normal to inspection Psych: Mental Status: mental status grossly normal Affect: normal affect Objective Data Vital Signs Vital Signs: Vital Signs - 24 hr 03/04/23 12:00 03/04/23 14:00 03/04/23 16:00 Temperature 36.8 C Pulse Rate 54 L 55 L 54 L Respiratory Rate 18 Blood Pressure 132/50 L Pulse Oximetry 100 03/04/23 22:00 03/04/23 20:38 03/05/23 00:00 Temperature 36.4 C L Pulse Rate 68 55 L 61 Respiratory Rate 16 Blood Pressure 133/61 Pulse Oximetry 96 03/05/23 04:00 03/05/23 05:23 Temperature 36.7 C Pulse Rate 44 L 47 L Respiratory Rate 18 Blood Pressure 147/
[2023-03-05] MEDS: carvediloL 25 MG TABLET PO (17:05)
[2023-03-05 17:16] LABS: Glucose Point of Care 326 mg/dl (65-105)
[2023-03-05 20:25] LABS: Glucose Point of Care 299 mg/dl (65-105)
[2023-03-06] VITALS: PULSE 52
[2023-03-06 04:00] VITALS: PULSE 60
[2023-03-06 05:34] VITALS: BP 157/64; PULSE 54; RESP 16; TEMP 36.6; O2SAT 93
[2023-03-06 07:02] LABS: Basophils Absolute Auto 0.1 K/mm3 (0.0-0.1); Basophils Percent Auto 1.2 % (0.2-1.2); Eosinophils Absolute Auto 0.3 K/mm3 (0-0.3); Eosinophils Percent Auto 5.1 % (0-4.4); Hematocrit 37.1 % (37.0-47.0); Hemoglobin 11.8 g/dL (12.0-15.0); Immature Granulocyte Absolute 0.02 K/mm3 (0.00-0.031); Immature Granulocyte Percent A 0.3 % (0-0.5); Lymphocytes Absolute Auto 1.19 K/mm3 (0.9-3.2); Lymphocytes Percent Auto 20.3 % (18.3-44.2); Mean Corpuscular HGB Conc 31.8 g/dl (32-36); Mean Corpuscular Hemoglobin 30.6 pg (26-34); Mean Corpuscular Volume 96.4 fl (80-100); Mean Platelet Volume 11.8 fl (7.4-10.4); Monocytes Absolute Auto 0.7 K/mm3 (0.1-0.6); Monocytes Percent Auto 11.1 % (2.6-8.5); Neutrophils Absolute Auto 3.6 K/mm3 (1.3-6.7); Platelet Count Result 210 k/mm3 (150-375); Red Blood Count 3.85 M/mm3 (4.2-5.4); Red Cell Distribution Width 12.4 % (11.5-14.5); White Blood Count 5.9 K/mm3 (4.5-10.0)
[2023-03-06 07:13] LABS: Alanine Aminotransferase 12 U/L (6-35); Albumin Level 3.6 g/dL (3.5-5.1); Alkaline Phosphatase 54 U/L (38-126); Anion Gap 8 mmol/L (8-16); Aspartate Amino Transferase 17 U/L (14-36); Bilirubin,Total 0.5 mg/dL (0.2-1.3); Blood Urea Nitrogen 16 mg/dL (7-17); Calcium 9.6 mg/dL (8.4-10.2); Carbon Dioxide 27 mmol/L (22-30); Chloride 104 mmol/L (98-107); Estimated CRCL calculation 61 ml/min; Estimated Glomerular Filt Rate > 60; Glucose 227 mg/dL (65-110); Potassium 3.8 mmol/L (3.4-5.0); Sodium 139 mmol/L (137-145)
[2023-03-06 08:00] VITALS: PULSE 51
[2023-03-06 08:19] LABS: Glucose Point of Care 216 mg/dl (65-105)
[2023-03-06] MEDS: ASPIRIN 81 MG ENTERIC TABLET PO (09:24)
[2023-03-06] MEDS: CLOPIDOGREL BISULFATE 75 MG TABLET PO (09:25)
[2023-03-06] MEDS: ROSUVASTATIN 10 MG TABLET PO (09:25)
[2023-03-06] MEDS: PANTOPRAZOLE 40 MG TABLET PO (09:25)
[2023-03-06] MEDS: MECLIZINE HCL 12.5 MG TABLET PO ×2 (09:25→12:58)
[2023-03-06] MEDS: calcitrioL 0.25 MCG CAPSULE 0.5 MCG PO (09:25)
[2023-03-06] MEDS: SODIUM CHLORIDE 500 MG TABLET 1000 MG PO ×2 (09:25→12:57)
[2023-03-06] MEDS: INSULIN ASPART (*BKC) 100 UNITS/ML SUB-Q (09:26)
[2023-03-06] MEDS: INSULIN GLARGINE (*BKC) 100 UNITS/ML 30 UNITS SUB-Q (09:30)
[2023-03-06] MEDS: ENALAPRIL MALEATE 10 MG TABLET PO (09:30)
[2023-03-06 09:32] VITALS: PULSE 51
[2023-03-06] MEDS: carvediloL 25 MG TABLET PO (09:32)
[2023-03-06] MEDS: DOXYCYCLINE HYCLATE 100 MG TABLET PO (09:37)
[2023-03-06 11:57] LABS: Glucose Point of Care 185 mg/dl (65-105)
[2023-03-06 12:00] VITALS: PULSE 49
--- NOTE | 2023-03-06 12:25 | PM.DS ---
DS: Admitting Diagnosis Discharge Date 03/06/23 Admitting Diagnosis cellulitis DS: Discharge Diagnosis Discharge Diagnosis (1) Vertigo: Code(s): R42 - Dizziness and giddiness Status: Acute Assessment and Plan: She has severe vertigo and nausea. Most likely secondary to acute cerebellar stroke Brain MRI reviewed, 4 mm focal, acute infarct in the left cerebellum Continue meclizine as needed. Neurologic checks q.4 hours. carotid Doppler ultrasounds No hemodynamically significant stenosis of the bilateral internal carotid arteries.Antegrade flow in the bilateral vertebral arteries. Currently patient is on aspirin 81 mg daily p.o., Crestor 10 mg daily p.o., Echocardiogram with bubble study wnl Consult neurologist for evaluation and treatment consult OT/PT Pt passed her swallow test Pt benefits from rehab placement CTA showed moderate stenosis of B/L ICA and B/L P2 posterior cerebral artery segments lipid panel ordered, plavix and ASA ordered (2) Hypomagnesemia: Code(s): E83.42 - Hypomagnesemia Status: Acute Assessment and Plan: Replete and recheck, monitor (3) Pyuria: Code(s): R82.81 - Pyuria Status: Acute Assessment and Plan: Culture negative, antibiotics discontinue (4) Cellulitis, leg: Code(s): L03.119 - Cellulitis of unspecified part of limb Status: Acute Assessment and Plan: Continue doxycycline (5) Insulin dependent type 2 diabetes mellitus: Code(s): E11.9 - Type 2 diabetes mellitus without complications; Z79.4 - alf (current) use of insulin Status: Acute Assessment and Plan: Accu-Cheks, sliding scale insulin Blood glucose reviewed 03/05 (6) Acute CVA (cerebrovascular accident): Code(s): I63.9 - Cerebral infarction, unspecified Status: Acute (7) Benign essential hypertension: Code(s): I10 - Essential (primary) hypertension Status: Acute Assessment and Plan: Blood pressure reviewed 03/05 Plan DVT prophylaxis with SCDs GI prophylaxis not indicated Code status full code DS: Summary Hospital Course Hospital Course: 77-year-old female with insulin-dependent type 2 diabetes mellitus, coronary artery disease status post bypass, hypertension, hiatal hernia with GERD, and other comorbidities who presented to the emergency department via EMS from home for evaluation multiple complaints and found to have acute CVA. She has severe vertigo and nausea.? Most likely secondary to acute cerebellar stroke Brain MRI reviewed, 4 mm focal, acute infarct in the left cerebellum Continue meclizine as needed. Neurologic checks q.4 hours. carotid Doppler ultrasounds No hemodynamically significant stenosis of the bilateral internal carotid arteries.Antegrade flow in the bilateral vertebral arteries. Currently patient is on aspirin 81 mg daily p.o., Crestor 10 mg daily p.o., Echocardiogram with bubble study wnl Consult neurologist for evaluation and treatment consult OT/PT Pt passed her swallow test Pt benefits from rehab placement CTA showed moderate stenosis of B/L ICA and B/L P2 posterior cerebral artery segments lipid panel ordered, plavix and ASA ordered She was ultimately found to have acute L cerebellar infarct -- etiology could be small vessel stroke. She obviously has several risk factors for stroke, but no intracranial stenosis in cerebellar feeding arteries -- only anterior circulation and P2 (which would be distal to cerebellum).? Also considering embolic from more proximal source, although distribution of stroke is not necessarily suggestive of this. - Continue Aspirin 81mg daily - Add Plavix 75mg x 3 weeks - LDL is 94, goal <70; adjust accordingly - Close follow-up with Cardiology -- may need to consider additional cardiac testing such as holter Please see above and med rec for details. Patient was discharged in stable condition with close outpatient follow-up by Neurol
== END 2023-03-06 13:20 | disposition home health service (06) | DRG 65 ==
LOC: ANHED 09:54 → ANH3MEDSUR 12:57
PROVIDERS: Emergency Medicine; Family Medicine; Physician Assistant; Admitting Provider Internal Medicine; Emergency Provider Emergency Medicine; PCP Family Medicine; Visit Provider Student in an Organized Health Care Education/Training Program
DX: I63.9 Cerebral infarction, unspecified (principal); L03.115 Cellulitis of right lower limb; I65.23 Occlusion and stenosis of bilateral carotid arteries; I10 Essential (primary) hypertension; I25.10 Atherosclerotic heart disease of native coronary artery without angina pectoris; I25.5 Ischemic cardiomyopathy; E11.40 Type 2 diabetes mellitus with diabetic neuropathy, unspecified; E83.42 Hypomagnesemia; E11.319 Type 2 diabetes mellitus with unspecified diabetic retinopathy without macular edema; E78.5 Hyperlipidemia, unspecified; K42.9 Umbilical hernia without obstruction or gangrene; K44.9 Diaphragmatic hernia without obstruction or gangrene; K21.9 Gastro-esophageal reflux disease without esophagitis; R82.81 Pyuria; M54.30 Sciatica, unspecified side; M47.816 Spondylosis without myelopathy or radiculopathy, lumbar region; Z20.822 Contact with and (suspected) exposure to COVID-19; I25.2 Old myocardial infarction; Z79.82 Long term (current) use of aspirin; Z79.4 Long term (current) use of insulin; Z95.1 Presence of aortocoronary bypass graft; Z87.442 Personal history of urinary calculi; Z87.891 Personal history of nicotine dependence; Z98.1 Arthrodesis status
CPT/HCPCS: 36415; 70450; 70496; 70551; 71045; 74177; 80048; 80053; 80061; 80307; 81001; 82550; 82948; 83036; 83605; 83690; 83735; 83880; 84100; 84443; 84484; 85025; 85027; 85610; 85730; 87040; 87086; 87637; 92610; 92611; 93005; 93880; 96361; 96374; 96375; 96376; 97110; 97116; 97162; 97165; 97530; 97535; 99285; A9270; C8929; G0378; J0696; J1815; J2405; J2765; J3360; J3475; J7030; Q9957; Q9967

== ENCOUNTER 2023-03-23 15:55 | Outpatient (NON) | payer OTHER, SELFPAY ==
[2023-03-23 16:33] LABS: Appearance Urine Clear (Clear); Bilirubin Urine Negative (Negative); Blood Urine Trace-Intact (Negative); Color Urine Light Yellow (Yellow); Glucose Urine UA 3+ (Negative); Ketones Urine Negative (Negative); Leukocyte Esterase Ur Negative LEU/UL (Negative); Nitrate Urine Negative (Negative); Protein Urine Negative (Negative); Urobilinogen Urine 0.2 mg/dL (0.2-1.0)
[2023-03-23 16:36] LABS: Add Urine Microscopic? YES; RBC Urine 0-2 /hpf (0-2); Squamous Epithelial Cell Urine Few /hpf (Few); WBC Urine None seen /hpf (0-3)
[2023-03-23 16:37] LABS: Bacteria Urine Rare /hpf
== END 2023-03-23 15:56 | disposition home or self-care (01) ==
LOC: CHSLAB 16:05
PROVIDERS: Visit Provider Family Medicine
DX: I69.398 Other sequelae of cerebral infarction (principal); R42 Dizziness and giddiness; N39.0 Urinary tract infection, site not specified; L03.115 Cellulitis of right lower limb
CPT/HCPCS: 81001

== ENCOUNTER 2023-03-25 11:29 | Observation (INO) | payer OTHER, SELFPAY ==
[2023-03-25] VITALS (54 sets, daily range): BP systolic 140–176; BP diastolic 55–114; PULSE 57–82; RESP 12–21; TEMP 36.2–37.2; O2SAT 92–100; BMI 27.5
--- NOTE | ~2023-03-25 | XR_ITS ---
EXAMINATION: XR chest 1V portable INDICATION: Hyperglycemia TECHNIQUE: Portable AP chest at 1221 COMPARISON: 02/27/2023 FINDINGS: There is mild atelectasis of the left lung base. No pleural effusion or pneumothorax. Cardi omegaly is noted. Median sternotomy wires and mediastinal surgical clips are seen, likely from prior coronary artery bypass grafting. IMPRESSION: 1. Mild atelectasis of the left lung base. Reviewed, dictated and finalized at location L. 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
[2023-03-25 11:46] LABS: Glucose Point of Care > 450 mg/dl (65-105)
--- NOTE | 2023-03-25 11:47 | ECG_ITS ---
Measurements Intervals [place] Rate: 68 P: 16 NE: 168 QRS: -36 QRSD: 171 T: -19 QT: 485 QTc: 519 Interpretive Statements SINUS RHYTHM INDETERMINATE AXIS RIGHT BUNDLE BRANCH BLOCK [120+ ms QRS DURATION, UPRIGHT V1, 40+ ms S IN PREVIOUS INFEROLATERAL AK ABNORMAL ECG COMPARED TO ECG 02/27/2023 03:23:29 NO SIGNIFICANT DIFFERENCE Electronically Signed On 03-25-2023 18:19:16 CONTINUITY EDITOR by Cirilo Buenrostro M.D.
[2023-03-25] MEDS: SODIUM CHLORIDE 0.9% IV 1,000 ML 999 ML IV CONT ×4 (12:05→16:52)
[2023-03-25 12:06] LABS: Base Excess ABG -0.6 mmol/L (0-2); HCO3 ABG 24.1 mmol/L (23-29); Methemoglobin ABG 0.2 % (0-1.5); Oxygen Content ABG 18.2 %vol (16.0-22.0); Oxygen Saturation ABG 90.3 % (95-97); Oxyhemoglobin 89.2 % (94-100); PCO2 ABG 39.9 mmHg (35-45); PO2 ABG 58.9 mmHg (75-85); Reduced Hemoglobin 9.6 % (0-1.5); Total Hemoglobin 14.5 g/dL (12.0-18.0)
[2023-03-25 12:08] LABS: Basophils Absolute Auto 0.07 K/mm3 (0.00-0.10); Device ROOM AIR; Eosinophils Absolute Auto 0.23 K/mm3 (0.02-0.50); Eosinophils Percent Auto 3.3 % (1.0-6.0); Hematocrit 42.7 % (35.0-42.0); Hemoglobin 14.3 g/dL (11.7-13.8); Immature Granulocyte Absolute 0.02 K/mm3 (0.00-0.00); Immature Granulocyte Percent A 0.3 % (0.0-0.0); Lymphocytes Absolute Auto 1.21 K/mm3 (1.10-4.50); Lymphocytes Percent Auto 17.4 % (18.0-42.0); Mean Corpuscular HGB Conc 33.5 g/dL (32.0-36.0); Mean Corpuscular Hemoglobin 30.6 pg (27.0-31.0); Mean Corpuscular Volume 91.2 fL (78.0-102.0); Mean Platelet Volume 12.2 fl (9.2-11.8); Modified Allen's Test Pass; Monocytes Absolute Auto 0.46 K/mm3 (0.10-0.90); Monocytes Percent Auto 6.6 % (2.0-11.0); Neutrophils Percent Auto 71.4 % (50.0-70.0); Platelet Count Result 241 K/mm3 (150-420); Red Blood Count 4.68 M/mm3 (4.20-5.40); Red Cell Distribution Width 12.3 % (11.6-14.4); Site Drawn RIGHT RADIAL
[2023-03-25 12:27] LABS: Glucose 684 mg/dL (70-99)
[2023-03-25 12:31] LABS: CRP < 0.5 mg/dL (0.0-0.9); NT Pro B Type Natriuretic Pept 409 pg/mL (0-450); Troponin I 23.9 ng/L (0.00-60.4)
[2023-03-25 12:33] LABS: Alanine Aminotransferase 20 U/L (14-59); Albumin Level 3.8 g/dL (3.4-5.0); Alkaline Phosphatase 67 U/L (46-116); Anion Gap 8 mmol/L (8-16); Aspartate Amino Transferase 12 U/L (15-37); Bilirubin,Total 0.7 mg/dL (0.00-1.00); Blood Urea Nitrogen 22 mg/dL (7-18); Carbon Dioxide 31 mmol/L (21-32); Chloride 91 mmol/L (98-108); Estimated Glomerular Filt Rate 49; Magnesium 1.5 mg/dL (1.8-2.4); Osmolality Calculated 306 mOsm/kg (285-295); Phosphorus 3.4 mg/dL (2.6-4.7); Potassium 4.5 mmol/L (3.5-5.1); Sodium 130 mmol/L (136-145); Total Protein 7.9 g/dL (6.4-8.2)
--- NOTE | 2023-03-25 12:41 | ED.GENADULT ---
HPI - General Adult General Chief complaint: Unspecified Stated complaint: dizzy/Diabetic Time Seen by Provider: 03/25/23 11:35 Source: patient and family Mode of arrival: ambulatory Limitations: no limitations History of Present Illness HPI narrative: This is 77-year-old female that presents with generalized weakness according to patient just not feeling well, patient with a history of diabetes type 2 and history of stroke that occurred approximately 1 month ago with left cerebellar dysfunction, with history of hypertension hyperlipidemia and CAD with CABG in 1979 with 3 vessel disease. Patient denies any fever chills no nausea vomiting no abdominal pain no dysuria no flank pain no chest pain or shortness of breath. Onset (ago): day(s) Severity: moderate Related Data Home Medications Medication Instructions Recorded Confirmed aspirin 81 mg capsule 81 mg PO DAILY 07/16/21 03/19/23 calcitriol 0.5 mcg capsule 0.5 mcg PO DAILY 07/16/21 03/19/23 carvedilol 25 mg tablet 25 mg PO BIDWM 07/16/21 03/19/23 coenzyme Q10 25 mg tablet 25 mg PO DAILY 07/16/21 03/19/23 enalapril maleate 10 mg tablet 10 mg PO DAILY 07/16/21 03/19/23 insulin aspart U-100 100 unit/mL 20 unit subcut DIRECTED 05/29/22 03/19/23 (3 mL) subcutaneous pen (Novolog FlexPen U-100 Insulin aspart) calcitriol 0.5 mcg capsule 0.5 mcg PO DAILY 02/18/23 02/18/23 carvedilol 25 mg tablet 25 mg PO BID 02/18/23 02/18/23 coenzyme Q10 100 mg capsule 200 mg PO DAILY 02/18/23 02/18/23 (CoQ-10) enalapril maleate 10 mg tablet 10 mg PO DAILY 02/18/23 02/18/23 insulin aspart U-100 100 unit/mL 20 unit subcut QID 02/18/23 02/18/23 subcutaneous solution (Novolog U-100 Insulin aspart) insulin degludec 100 unit/mL 32 unit subcut DAILY 02/18/23 02/18/23 subcutaneous solution (Tresiba U-100 Insulin) pantoprazole 40 mg tablet,delayed 40 mg PO QAM 02/18/23 02/18/23 release rosuvastatin 10 mg tablet 10 mg PO DAILY 02/18/23 02/18/23 insulin degludec 200 unit/mL (3 30 unit subcut DAILY 02/27/23 03/19/23 mL) subcutaneous pen (Tresiba FlexTouch U-200 insulin) Allergies Allergy/AdvReac Type Severity Reaction Status Date / Time No Known Allergies Allergy Verified 03/25/23 14:17 Review of Systems Review of Systems: All systems reviewed & are unremarkable except as noted in HPI and below PMFSH Past Medical History Medical History Benign essential hypertension Coronary artery disease Cystocele with uterine prolapse Status post colpopexy. 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 History of lumbar laminectomy History of tonsillectomy and adenoidectomy History of total abdominal hysterectomy and bilateral salpingo-oophorectomy History of vein stripping Family History Family History Mother History of stroke Other Diabetes mellitus Social History Social History (System 03/25/23 @ 14:17 by Yennifer Gonsalez) Social History: Surrogate medical decision maker: Mary Martinez, daughter. Code status: Full code. Smoking packs per day: 1 Smoking cigarettes per day: 20.0 Years smoked: 20 Smoking pack-years: 20.00 Smoking status: Former smoker Tobacco type: cigarettes Alcohol intake: never Substance use: never Substance use type: does not use Lack of Transp
[2023-03-25 13:05] LABS: Glucose Point of Care > 450 mg/dl (65-105)
[2023-03-25 13:05] LABS: SARS-CoV-2 RNA PCR Negative (Negative)
[2023-03-25 13:06] LABS: Influenza A QL RT-PCR Negative (Negative); Influenza B QL RT-PCR Negative (Negative); RSV RNA, RT-PCR Negative (Negative)
[2023-03-25] MEDS: INSULIN HUMAN REGULAR (*BKC) 1,000 UNITS/10 ML VIAL 10 UNITS IV PUSH (13:30)
[2023-03-25] MEDS: INSULIN REG 100 UNITS/100 ML 100 UNITS/100 ML BAG 6.7 UNITS IV CONT (13:37)
[2023-03-25 13:52] LABS: Appearance Urine Clear (Clear); Bilirubin Urine Negative (Negative); Blood Urine Trace-Intact (Negative); Color Urine Light Yellow (Yellow); Glucose Urine UA 3+ (Negative); Ketones Urine 1+ (Negative); Leukocyte Esterase Ur Negative LEU/UL (Negative); Nitrate Urine Negative (Negative); Protein Urine Negative (Negative); Urobilinogen Urine 0.2 mg/dL (0.2-1.0)
[2023-03-25 13:55] LABS: Add Urine Microscopic? YES; RBC Urine None seen /hpf (0-2); Squamous Epithelial Cell Urine Rare /hpf (Few); WBC Urine None seen /hpf (0-3)
[2023-03-25 13:56] LABS: Bacteria Urine Trace /hpf
[2023-03-25 14:01] LABS: Alanine Aminotransferase 18 U/L (14-59); Albumin Level 3.3 g/dL (3.4-5.0); Alkaline Phosphatase 63 U/L (46-116); Anion Gap 5 mmol/L (8-16); Aspartate Amino Transferase 11 U/L (15-37); Bilirubin,Total 0.5 mg/dL (0.00-1.00); Blood Urea Nitrogen 22 mg/dL (7-18); Calcium 8.8 mg/dL (8.5-10.1); Carbon Dioxide 31 mmol/L (21-32); Chloride 97 mmol/L (98-108); Estimated CRCL calculation 32 ml/min; Estimated Glomerular Filt Rate 51; Potassium 4.6 mmol/L (3.5-5.1); Sodium 133 mmol/L (136-145); Total Protein 6.8 g/dL (6.4-8.2)
[2023-03-25 14:03] LABS: Glucose 640 mg/dL (70-99); Osmolality Calculated 309 mOsm/kg (285-295)
[2023-03-25 14:53] LABS: Glucose Point of Care > 450 mg/dl (65-105)
[2023-03-25 16:21] LABS: Glucose Point of Care 359 mg/dl (65-105)
[2023-03-25 17:45] LABS: Alanine Aminotransferase 14 U/L (14-59); Alkaline Phosphatase 56 U/L (46-116); Anion Gap 8 mmol/L (8-16); Aspartate Amino Transferase 10 U/L (15-37); Bilirubin,Total 0.2 mg/dL (0.00-1.00); Blood Urea Nitrogen 19 mg/dL (7-18); Calcium 8.8 mg/dL (8.5-10.1); Carbon Dioxide 26 mmol/L (21-32); Chloride 102 mmol/L (98-108); Estimated CRCL calculation 40 ml/min; Estimated Glomerular Filt Rate > 60; Glucose 344 mg/dL (70-99); Osmolality Calculated 298 mOsm/kg (285-295); Potassium 3.5 mmol/L (3.5-5.1); Sodium 136 mmol/L (136-145); Total Protein 6.5 g/dL (6.4-8.2)
[2023-03-25] MEDS: carvediloL 12.5 MG TABLET 25 MG PO (20:44)
[2023-03-25] MEDS: SODIUM CHLORIDE 0.9% IV 1,000 ML 100 ML IV CONT (20:45)
[2023-03-25 20:54] LABS: Glucose Point of Care 257 mg/dl (65-105)
[2023-03-26] VITALS (9 sets, daily range): BP systolic 152–176; BP diastolic 44–60; PULSE 52–82; RESP 12–18; TEMP 36–36.6; O2SAT 95–99
[2023-03-26 05:58] LABS: Basophils Absolute Auto 0.06 K/mm3 (0.00-0.10); Basophils Percent Auto 1.3 % (0.0-1.0); Eosinophils Absolute Auto 0.29 K/mm3 (0.02-0.50); Eosinophils Percent Auto 6.2 % (1.0-6.0); Hematocrit 38.9 % (35.0-42.0); Hemoglobin 12.8 g/dL (11.7-13.8); Immature Granulocyte Absolute 0.02 K/mm3 (0.00-0.00); Immature Granulocyte Percent A 0.4 % (0.0-0.0); Lymphocytes Absolute Auto 1.17 K/mm3 (1.10-4.50); Lymphocytes Percent Auto 24.9 % (18.0-42.0); Mean Corpuscular HGB Conc 32.9 g/dL (32.0-36.0); Mean Corpuscular Hemoglobin 30.7 pg (27.0-31.0); Mean Corpuscular Volume 93.3 fL (78.0-102.0); Mean Platelet Volume 12.2 fl (9.2-11.8); Monocytes Absolute Auto 0.44 K/mm3 (0.10-0.90); Monocytes Percent Auto 9.4 % (2.0-11.0); Neutrophils Absolute Auto 2.7 K/mm3 (1.7-7.2); Neutrophils Percent Auto 57.8 % (50.0-70.0); Platelet Count Result 177 K/mm3 (150-420); Red Blood Count 4.17 M/mm3 (4.20-5.40); Red Cell Distribution Width 12.3 % (11.6-14.4); White Blood Count 4.7 K/mm3 (4.8-10.8)
[2023-03-26 06:05] LABS: Hemoglobin A1C 10.6 % (<5.7)
[2023-03-26 06:22] LABS: Alanine Aminotransferase 16 U/L (14-59); Albumin Level 3.1 g/dL (3.4-5.0); Alkaline Phosphatase 57 U/L (46-116); Anion Gap 8 mmol/L (8-16); Aspartate Amino Transferase 12 U/L (15-37); Bilirubin,Total 0.6 mg/dL (0.00-1.00); Blood Urea Nitrogen 11 mg/dL (7-18); Calcium 8.9 mg/dL (8.5-10.1); Carbon Dioxide 27 mmol/L (21-32); Chloride 104 mmol/L (98-108); Estimated CRCL calculation 57 ml/min; Estimated Glomerular Filt Rate > 60; Glucose 314 mg/dL (70-99); Osmolality Calculated 299 mOsm/kg (285-295); Potassium 3.7 mmol/L (3.5-5.1); Sodium 139 mmol/L (136-145); Total Protein 6.5 g/dL (6.4-8.2)
[2023-03-26 07:54] LABS: Glucose Point of Care 330 mg/dl (65-105)
[2023-03-26] MEDS: carvediloL 12.5 MG TABLET 25 MG PO (09:38)
[2023-03-26] MEDS: CLOPIDOGREL BISULFATE 75 MG TABLET PO (09:38)
[2023-03-26] MEDS: calcitrioL 0.25 MCG CAPSULE 0.5 MCG PO (09:41)
[2023-03-26] MEDS: PANTOPRAZOLE 40 MG TABLET PO (09:41)
[2023-03-26] MEDS: FAMOTIDINE 20 MG TABLET PO ×2 (09:41→16:29)
[2023-03-26] MEDS: ENALAPRIL MALEATE 5 MG TABLET 10 MG PO (09:42)
[2023-03-26] MEDS: ASPIRIN 81 MG ENTERIC TABLET PO (09:43)
[2023-03-26] MEDS: MUPIROCIN 2% OINT 22 GM TUBE 1 APPLIC TOPICAL ×2 (09:46→16:49)
[2023-03-26] MEDS: ROSUVASTATIN 10 MG TABLET PO (09:50)
[2023-03-26] MEDS: INSULIN HUMAN LISPRO (*BKC) 1,000 UNITS/10 ML VIAL SUB-Q ×3 (09:54→16:47)
[2023-03-26] MEDS: INSULIN GLARGINE (*BKC) 1,000 UNITS/10 ML VIAL 30 UNITS SUB-Q (09:57)
--- NOTE | 2023-03-26 10:05 | PM.IMHP ---
H&P: HPI History of Present Illness Date/Time: 03/26/23 10:05 Chief Complaint: generally not feeling well, dizziness, hyperglycemia Narrative: This is a 77-year-old female patient with a history of type 2 diabetes insulin-dependent, hypertension, coronary artery disease, GERD, CHF who is admitted to the hospital due to uncontrolled hyperglycemia. Patient recently suffered a CVA about a month ago and since return home has likely not been taking her medications as appropriate. It is difficult to tell as patient does seem somewhat confused today and family cannot say whether she has been taking her medicines appropriately. When patient was evaluated in the emergency department her glucose was 680 on chemistry panel without an anion gap acidosis. She was given several L of IV fluids as well as started on insulin drip. Insulin drip was discontinued when glucose got down around 300. Patient reports that she does not drink water will only drink diet soda. From conversation as sounds like patient has not been taking her large doses of insulin because she did not have an updated continuous glucose monitor sensor. Patient is on long-acting insulin 30 units per day and gets NovoLog 20 units plus sliding scale with meals for an average of 90-100 units per day of total insulin. To the best we could ascertain she has not been receiving any insulin for an unknown amount of time. Patient complains of feeling confused, fatigued with intermittent dizziness. She reports that she is feeling better today than yesterday. She denies any chest pain shortness a breath nausea vomiting chills or fever. Patient is ambulatory with a walker with a somewhat steady gait albeit slowly. Review of Systems Review of Systems: All systems reviewed & are unremarkable except as noted in HPI and below PMFSH Past Medical History Medical History Benign essential hypertension CHF (congestive heart failure) Coronary artery disease Cystocele with uterine prolapse Status post colpopexy. 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 History of lumbar laminectomy History of tonsillectomy and adenoidectomy History of total abdominal hysterectomy and bilateral salpingo-oophorectomy History of vein stripping Family History Family History Mother History of stroke Other Diabetes mellitus Social History Social History Social History: Surrogate medical decision maker: Mary Martinez, daughter. Code status: Full code. Smoking packs per day: 1 Smoking cigarettes per day: 20.0 Years smoked: 30 Smoking pack-years: 30.00 Smoking status: Former smoker Tobacco type: cigarettes Second hand tobacco smoke exposure: No Smoking end date: 04/05/03 Alcohol intake: never Substance use: never Substance use type: does not use Do You Feel Safe in your Home?: Yes Lack of Transportation: No Lack of Food: Never True Current Housing: I Have Housing Concerned About Future Housing: No Difficulty Paying Gas/Electric Bills: No Difficulty Paying for Meds: No Currently Unemployed: No Education: High School Diploma/GED Difficulty w/ Childcare or Family Care: No Living arrangements: with family
[2023-03-26 11:41] LABS: Glucose Point of Care 415 mg/dl (65-105)
[2023-03-26] MEDS: INSULIN HUMAN LISPRO (*BKC) 1,000 UNITS/10 ML VIAL 20 UNITS SUB-Q ×2 (11:46→16:41)
[2023-03-26] MEDS: SODIUM CHLORIDE 0.9% IV 1,000 ML 100 ML IV CONT (13:02)
[2023-03-26] MEDS: MAGNESIUM SULF 2 GM/WATER 50ML 2 GM/50 ML BAG IVPB (16:28)
[2023-03-26 16:54] LABS: Glucose Point of Care 289 mg/dl (65-105)
[2023-03-26] MEDS: ACETAMINOPHEN 325 MG TABLET 650 MG PO (20:22)
[2023-03-26 20:24] LABS: Glucose Point of Care 215 mg/dl (65-105)
[2023-03-27 05:20] LABS: Basophils Absolute Auto 0.06 K/mm3 (0.00-0.10); Basophils Percent Auto 0.8 % (0.0-1.0); Eosinophils Absolute Auto 0.36 K/mm3 (0.02-0.50); Eosinophils Percent Auto 4.8 % (1.0-6.0); Hematocrit 37.8 % (35.0-42.0); Hemoglobin 12.4 g/dL (11.7-13.8); Immature Granulocyte Absolute 0.03 K/mm3 (0.00-0.00); Immature Granulocyte Percent A 0.4 % (0.0-0.0); Lymphocytes Absolute Auto 1.21 K/mm3 (1.10-4.50); Lymphocytes Percent Auto 16.1 % (18.0-42.0); Mean Corpuscular HGB Conc 32.8 g/dL (32.0-36.0); Mean Corpuscular Volume 94.5 fL (78.0-102.0); Monocytes Absolute Auto 0.89 K/mm3 (0.10-0.90); Monocytes Percent Auto 11.9 % (2.0-11.0); Platelet Count Result 167 K/mm3 (150-420); Red Cell Distribution Width 12.3 % (11.6-14.4); White Blood Count 7.5 K/mm3 (4.8-10.8)
[2023-03-27 05:38] LABS: Alanine Aminotransferase 13 U/L (14-59); Albumin Level 2.9 g/dL (3.4-5.0); Alkaline Phosphatase 52 U/L (46-116); Anion Gap 7 mmol/L (8-16); Aspartate Amino Transferase 10 U/L (15-37); Bilirubin,Total 0.4 mg/dL (0.00-1.00); Blood Urea Nitrogen 13 mg/dL (7-18); Calcium 9.1 mg/dL (8.5-10.1); Carbon Dioxide 26 mmol/L (21-32); Chloride 102 mmol/L (98-108); Estimated CRCL calculation 57 ml/min; Estimated Glomerular Filt Rate > 60; Glucose 254 mg/dL (70-99); Magnesium 1.5 mg/dL (1.8-2.4); Osmolality Calculated 289 mOsm/kg (285-295); Potassium 3.7 mmol/L (3.5-5.1); Sodium 135 mmol/L (136-145); Total Protein 6.1 g/dL (6.4-8.2)
--- NOTE | 2023-03-27 06:45 | PC.NURSE ---
Pt called to nurse's station to inquire about her glucose lab value. Labs discussed 10min ago in pt room, glucose of 154 reiterated to pt, states understanding.
[2023-03-27 07:59] LABS: Glucose Point of Care 323 mg/dl (65-105)
[2023-03-27 08:00] VITALS: BP 172/54; PULSE 51; RESP 16; TEMP 35.9; O2SAT 98
[2023-03-27] MEDS: MAGNESIUM SULF 2 GM/WATER 50ML 2 GM/50 ML BAG IVPB (08:11)
[2023-03-27] MEDS: INSULIN HUMAN LISPRO (*BKC) 1,000 UNITS/10 ML VIAL SUB-Q ×2 (08:16→11:35)
--- NOTE | 2023-03-27 08:16 | PM.DS ---
DS: Admitting Diagnosis Discharge Date 03/27/2023 Admitting Diagnosis insulin-dependent type 2 diabetes mellitus, benign essential hypertension, generalized weakness, RONALD, hypo magnesemia DS: Discharge Diagnosis Discharge Diagnosis (1) Insulin dependent type 2 diabetes mellitus: Code(s): E11.9 - Type 2 diabetes mellitus without complications; Z79.4 - MCC (current) use of insulin Status: Acute (2) Benign essential hypertension: Code(s): I10 - Essential (primary) hypertension Status: Chronic (3) Generalized weakness: Code(s): R53.1 - Weakness Status: Resolved (4) RONALD (acute kidney injury): Code(s): N17.9 - Acute kidney failure, unspecified Status: Resolved (5) Hypomagnesemia: Code(s): E83.42 - Hypomagnesemia Status: Acute DS: Summary Hospital Course Hospital Course: 03/26 H&P: This is a 77-year-old female patient with a history of type 2 diabetes insulin-dependent, hypertension, coronary artery disease, GERD, CHF who is admitted to the hospital due to uncontrolled hyperglycemia.? Patient recently suffered a CVA about a month ago and since return home has likely not been taking her medications as appropriate.? It is difficult to tell as patient does seem somewhat confused today and family cannot say whether she has been taking her medicines appropriately.? When patient was evaluated in the emergency department her glucose was 680 on chemistry panel without an anion gap acidosis.? She was given several L of IV fluids as well as started on insulin drip.? Insulin drip was discontinued when glucose got down around 300.? Patient reports that she does not drink water will only drink diet soda.? From conversation as sounds like patient has not been taking her large doses of insulin because she did not have an updated continuous glucose monitor sensor.? Patient is on long-acting insulin 30 units per day and gets NovoLog 20 units plus sliding scale with meals for an average of 90-100 units per day of total insulin.? To the best we could ascertain she has not been receiving any insulin for an unknown amount of time.? Patient complains of feeling confused, fatigued with intermittent dizziness.? She reports that she is feeling better today than yesterday.? She denies any chest pain shortness a breath nausea vomiting chills or fever.? Patient is ambulatory with a walker with a somewhat steady gait albeit slowly. 03/27: Patient reports feeling much better. Confusion and weakness improved to baseline, glucose control improved though she will likely need further adjustments to home regimen. IV fluids discontinued last night as she was below 300 on 2 consecutive glucose checks. Family support is available and hypomagnesemia has been treated. Patient felt much better. She was ambulatory to/from the restroom independently. She was not interested in further therapy as Swing Bed or SNF. Discharged with instructions to discuss insulin management with PCP at soonest possible appointment. Status at Discharge Cognitive/behavioral status at discharge: awake alert oriented and pleasant Functional status at discharge: uses cane/walker Overall status at discharge: patient is progressing back to baseline Time Spent with Patient Time attestation: Total time spent providing and/or coordinating discharge services: 35 minutes Time spent: Greater than 30 minutes Exam Narrative: GENERAL: well-appearing, well-nourished, and in no acute distress. HEAD: Normocephalic, atraumatic. ENT:? Mucous membranes moist. CHEST: Clear to auscultation.? No respiratory distress. HEART: Regular rate and rhythm. ? Normal peripheral pulses. ABDOMEN: Soft, nontender, nondistended. EXTREMITIES: Normal range of motion. No peripheral edema. SKIN: Warm dry normal color NEURO: awake alert oriented, ambulates to and from the restroom independently with walker PSYCH: Normal mood and affect DS: Data Data Complete
[2023-03-27] MEDS: INSULIN HUMAN LISPRO (*BKC) 1,000 UNITS/10 ML VIAL 20 UNITS SUB-Q ×2 (08:17→11:36)
[2023-03-27] MEDS: INSULIN GLARGINE (*BKC) 1,000 UNITS/10 ML VIAL 30 UNITS SUB-Q (08:18)
[2023-03-27] MEDS: ENALAPRIL MALEATE 5 MG TABLET 10 MG PO (08:20)
[2023-03-27] MEDS: ROSUVASTATIN 10 MG TABLET PO (08:21)
[2023-03-27] MEDS: FAMOTIDINE 20 MG TABLET PO (08:22)
[2023-03-27] MEDS: PANTOPRAZOLE 40 MG TABLET PO (08:22)
[2023-03-27] MEDS: ASPIRIN 81 MG ENTERIC TABLET PO (08:22)
[2023-03-27] MEDS: CLOPIDOGREL BISULFATE 75 MG TABLET PO (08:22)
[2023-03-27] MEDS: MUPIROCIN 2% OINT 22 GM TUBE 1 APPLIC TOPICAL (08:23)
[2023-03-27 09:40] VITALS: PULSE 51
[2023-03-27 11:42] LABS: Glucose Point of Care 267 mg/dl (65-105)
--- NOTE | 2023-03-27 12:25 | PC.NURSE ---
Discharge instructions gone over with patient and patient's daughter. Daughter voiced understanding. Patient left unit in w/c, accompanied by her daughter, and teletypewriter operator. Patient left facility grounds in privately owned vehicles. Personal items sent home with patient.
--- NOTE | 2023-03-30 08:53 | PC.NURSE ---
Discharge call back completed, doing well, getting ready to see primary doctor, no questions or concerns
== END 2023-03-27 12:25 | disposition home or self-care (01) ==
LOC: CHSED 17:58 → CHS2ND 18:03
PROVIDERS: Nurse Practitioner; Admitting Provider Internal Medicine; Emergency Provider Emergency Medicine; PCP Family Medicine; Visit Provider Internal Medicine
DX: E11.65 Type 2 diabetes mellitus with hyperglycemia (principal); I11.0 Hypertensive heart disease with heart failure; I50.9 Heart failure, unspecified; N17.9 Acute kidney failure, unspecified; E83.42 Hypomagnesemia; E78.5 Hyperlipidemia, unspecified; I25.10 Atherosclerotic heart disease of native coronary artery without angina pectoris; J98.11 Atelectasis; Z95.1 Presence of aortocoronary bypass graft; Z20.822 Contact with and (suspected) exposure to COVID-19; E11.40 Type 2 diabetes mellitus with diabetic neuropathy, unspecified; E11.319 Type 2 diabetes mellitus with unspecified diabetic retinopathy without macular edema; R94.31 Abnormal electrocardiogram [ECG] [EKG]; K21.9 Gastro-esophageal reflux disease without esophagitis; K44.9 Diaphragmatic hernia without obstruction or gangrene; I25.5 Ischemic cardiomyopathy; I25.2 Old myocardial infarction; Z86.73 Personal history of transient ischemic attack (TIA), and cerebral infarction without residual deficits; Z87.891 Personal history of nicotine dependence; Z79.82 Long term (current) use of aspirin; Z79.4 Long term (current) use of insulin; Z79.02 Long term (current) use of antithrombotics/antiplatelets; Z79.899 Other long term (current) drug therapy; Z83.3 Family history of diabetes mellitus; Z82.3 Family history of stroke
CPT/HCPCS: 36415; 36600; 71045; 80053; 81001; 82375; 82805; 82948; 83036; 83050; 83605; 83735; 83880; 84100; 84484; 85025; 86140; 87040; 87637; 93005; 96360; 96361; 96365; 96366; 96374; 97161; 97165; 99285; A9270; G0378; J1815; J3475; J7030

== ENCOUNTER 2023-06-15 10:36 | Outpatient (CLI) | payer MEDICARE, SELFPAY ==
--- NOTE | ~2023-06-15 | XR_ITS ---
Supine and upright views of the abdomen Clinical history: Abdominal pain Findings: Bowel gas pattern is nonspecific. Moderate stool burden. No evidence for obstruction or rachele e air. No abnormal mass lesion or calcification is seen. Cholecystectomy clips present. Lumbosacral s lee fixation hardware noted. Impression: No acute abnormality. Possible constipation.. Postoperative change, as above. Reviewed, dictated and finalized at location . Impression: No acute abnormality. Possible constipation.. Postoperative change, as above.
== END 2023-06-15 10:37 | disposition home or self-care (01) ==
LOC: ANHIMG 10:37
PROVIDERS: PCP Family Medicine; Visit Provider Family Medicine
DX: R10.13 Epigastric pain (principal)
CPT/HCPCS: 74018

== ENCOUNTER 2023-09-23 10:47 | Outpatient (CLI) | payer MEDICARE, OTHER, SELFPAY ==
[2023-09-23 11:45] LABS: Alanine Aminotransferase 13 U/L (6-35); Albumin Level 4.8 g/dL (3.5-5.1); Alkaline Phosphatase 85 U/L (38-126); Anion Gap 11 mmol/L (4-12); Aspartate Amino Transferase 19 U/L (14-36); Bilirubin,Total 0.8 mg/dL (0.2-1.3); Blood Urea Nitrogen 23 mg/dL (7-17); Carbon Dioxide 28 mmol/L (22-30); Chloride 93 mmol/L (98-107); Estimated Glomerular Filt Rate > 60; Glucose 520 mg/dL (65-110); Potassium 5.4 mmol/L (3.4-5.0); Sodium 132 mmol/L (137-145)
[2023-09-23 12:22] LABS: Hemoglobin A1C 13.4 % (<5.7)
== END 2023-09-23 10:48 | disposition home or self-care (01) ==
PROVIDERS: PCP Family Medicine; Visit Provider Family Medicine
DX: E11.65 Type 2 diabetes mellitus with hyperglycemia (principal); Z79.4 Long term (current) use of insulin; N17.9 Acute kidney failure, unspecified; E11.319 Type 2 diabetes mellitus with unspecified diabetic retinopathy without macular edema
CPT/HCPCS: 36415; 80053; 83036

== ENCOUNTER 2023-09-23 12:16 | Observation (INO) | payer MEDICARE, OTHER, SELFPAY ==
[2023-09-23 12:53] VITALS: BP 156/70; PULSE 66; RESP 18; TEMP 36.7; O2SAT 98
--- NOTE | 2023-09-23 12:53 | ED.RECABL ---
HPI - Recheck/Abnormal Lab/Rx General Chief Complaint: Recheck/Abnormal Lab/Rx <Radha Gorman PA-C - Last Filed: 09/28/23 09:20> Stated Complaint: blood glucose over [address]Sophia vargas <Radha Gorman PA-C - Last Filed: 09/28/23 09:20> Time Seen by Provider: 09/23/23 12:53 <Radha Gorman PA-C - Last Filed: 09/28/23 09:20> Focused HPI: This is a 78-year-old female that presents to the emergency department for evaluation of elevated blood sugar. Her daughter called her PCP out of concern of her not taking care of herself. Patient reports she has not been taking her medications. Reportedly is grieving the loss of her spouse. Was sent to the ER by her primary provider for further evaluation. She has no complaints currently. GENERAL: Well-appearing, well-nourished, and in no acute distress. HEAD: Normocephalic, atraumatic. CHEST: Clear to auscultation. ?No respiratory distress. HEART: Regular rate and rhythm.? NEURO: ?Alert and oriented x3. Patient screened in triage and initial orders placed.? ?Additional care and disposition to be based upon?diagnostic testing and treatment. <Radha Gorman PA-C - Last Filed: 09/28/23 09:20> History of Present Illness HPI narrative: Patient presents emergency after the seen by primary care physician Dr. Do earlier today. She reportedly has intermittently been taking diabetic medications. After she states she is on oral medications for diabetes and states that she is not. She believes that she has along the long-acting insulin but she has not been taking it very often is unsure many units in if she is supposed to take it in the morning or p.m.. She states that her short-acting insulin as NovoLog but she is supposed to take 3 times daily with meals as a sliding scale. Does not know if she has ever previously been in DKA or HHS. Does not know if she needs refills of her medications. Denies having any pain including no abdominal pain shortness of breath. She states that her continuous glucose monitor is working although she keeps taking the cap off of her short acting insulin pen (using her teeth) and then waving it around, sometimes near the webspace of her hand and sometimes pointing it near her continous glucose monitor on her left arm. She does admit to taking 24 U of it after her blood was drawn and is adament that she's not staying. <Erica Bazzi MD - Last Filed: 09/24/23 11:10> Related Data Home Medications: Home Medications Medication Instructions Recorded Confirmed enalapril maleate 10 mg tablet 10 mg PO DAILY 07/16/21 09/24/23 insulin aspart U-100 100 unit/mL 20 unit subcut TIDWM 05/29/22 09/24/23 (3 mL) subcutaneous pen (Novolog FlexPen U-100 Insulin aspart) coenzyme Q10 100 mg capsule 200 mg PO DAILY 02/18/23 09/23/23 (CoQ-10) rosuvastatin 10 mg tablet 10 mg PO DAILY 02/18/23 09/24/23 insulin degludec 200 unit/mL (3 30 unit subcut DAILY 02/27/23 09/24/23 mL) subcutaneous pen (Tresiba FlexTouch U-200 insulin) <Radha Gorman PA-C - Last Filed: 09/28/23 09:20> Allergies/Adverse Reactions: Allergies Allergy/AdvReac Type Severity Reaction Status Date / Time No Known Allergies Allergy Verified 09/23/23 22:11 <Radha Gorman PA-C - Last Filed: 09/28/23 09:20> Review of Systems Review of Systems: CONSTITUTIONAL: Denies fever GASTROINTESTINAL: Denies abdominal pain, nausea, vomiting <Radha Gorman PA-C - Last Filed: 09/28/23 09:20> All systems reviewed & are unremarkable except as noted in HPI and below <Radha Gorman PA-C - Last Filed: 09/28/23 09:20> [facility] Past Medical History Medical History: Medical History Acute CVA (cerebrovascular accident) Benign essential hypertension CHF (congestive heart failure) Coronary artery disease Cystocele with uterine prolapse Status post colpopexy. Degenerative joint diseas
[2023-09-23 13:50] LABS: Glucose Point of Care 448 mg/dl (65-105)
[2023-09-23] MEDS: SODIUM CHLORIDE 0.9% IV 1,000 ML 999 ML IV CONT ×2 (14:27→15:20)
[2023-09-23 14:30] LABS: Basophils Absolute Auto 0.1 K/mm3 (0.0-0.1); Basophils Percent Auto 1.4 % (0.2-1.2); Eosinophils Absolute Auto 0.1 K/mm3 (0-0.3); Eosinophils Percent Auto 2.4 % (0-4.4); Hematocrit 46.5 % (37.0-47.0); Hemoglobin 15.9 g/dL (12.0-15.0); Immature Granulocyte Absolute 0.01 K/mm3 (0.00-0.031); Immature Granulocyte Percent A 0.2 % (0-0.5); Lymphocytes Absolute Auto 1.14 K/mm3 (0.9-3.2); Lymphocytes Percent Auto 23.2 % (18.3-44.2); Mean Corpuscular HGB Conc 34.2 g/dl (32-36); Mean Corpuscular Hemoglobin 31.5 pg (26-34); Mean Corpuscular Volume 92.3 fl (80-100); Mean Platelet Volume 11.7 fl (7.4-10.4); Monocytes Absolute Auto 0.4 K/mm3 (0.1-0.6); Monocytes Percent Auto 8.1 % (2.6-8.5); Neutrophils Absolute Auto 3.2 K/mm3 (1.3-6.7); Neutrophils Percent Auto 64.7 % (45.5-73.1); Platelet Count Result 228 k/mm3 (150-375); Red Blood Count 5.04 M/mm3 (4.2-5.4); Red Cell Distribution Width 12.5 % (11.5-14.5); White Blood Count 4.9 K/mm3 (4.5-10.0)
[2023-09-23 14:38] LABS: Alanine Aminotransferase 14 U/L (6-35); Albumin Level 4.8 g/dL (3.5-5.1); Alkaline Phosphatase 83 U/L (38-126); Anion Gap 13 mmol/L (4-12); Aspartate Amino Transferase 18 U/L (14-36); Bilirubin,Total 0.9 mg/dL (0.2-1.3); Blood Urea Nitrogen 23 mg/dL (7-17); Carbon Dioxide 25 mmol/L (22-30); Chloride 95 mmol/L (98-107); Estimated CRCL calculation 55 ml/min; Estimated Glomerular Filt Rate > 60; Glucose 448 mg/dL (65-110); Magnesium 1.7 mg/dL (1.6-2.3); Phosphorus 3.7 mg/dL (2.5-4.5); Potassium 4.3 mmol/L (3.4-5.0); Sodium 133 mmol/L (137-145)
[2023-09-23 14:42] LABS: Beta-Hydroxybutyrate/Acetoacetate 2.87 mmol/L (0.02-0.27)
[2023-09-23 15:21] LABS: Appearance Urine Clear (Clear); Bacteria Urine 4+ /hpf; Bilirubin Urine Negative (Negative); Blood Urine Non-Hemolyzed Trace (Negative); Color Urine Yellow (Yellow); Glucose Urine UA 3+ mg/dL (Negative); Ketones Urine 2+ mg/dL (Negative); Leukocyte Esterase Ur Trace LEU/UL (Negative); Need Manual Microscopic Reviewed; Nitrate Urine Positive (Negative); Non Pathogenic Casts 0-2; Protein Urine Trace mg/dL (Negative); RBC Urine 0-2 /hpf (0-2); Squamous Epithelial Cell Urine Occasional /hpf (Few); Urobilinogen Urine 0.2 mg/dL (<2.0); WBC Urine 51-100 /hpf (0-3)
[2023-09-23 15:22] VITALS: BP 147/63; PULSE 63; RESP 18; O2SAT 95
[2023-09-23 15:35] LABS: Specific Grav Ur 1.036 (1.001-1.035)
[2023-09-23 15:36] LABS: Add Urine Microscopic? YES
[2023-09-23 16:27] LABS: Anion Gap 6 mmol/L (4-12); Blood Urea Nitrogen 19 mg/dL (7-17); Calcium 9.4 mg/dL (8.4-10.2); Carbon Dioxide 28 mmol/L (22-30); Chloride 102 mmol/L (98-107); Estimated CRCL calculation 55 ml/min; Estimated Glomerular Filt Rate > 60; Glucose 302 mg/dL (65-110); Potassium 3.8 mmol/L (3.4-5.0); Sodium 136 mmol/L (137-145)
--- NOTE | 2023-09-23 17:58 | PM.IMHP ---
H&P: HPI History of Present Illness Date/Time: 09/23/23 17:58 Chief Complaint: Hyperglycemia Narrative: 78 y/o M presents here hyperglycemia with PMH of [facility] Past Medical History Medical History Acute CVA (cerebrovascular accident) Benign essential hypertension CHF (congestive heart failure) Coronary artery disease Cystocele with uterine prolapse Status post colpopexy. 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 History of lumbar laminectomy History of tonsillectomy and adenoidectomy History of total abdominal hysterectomy and bilateral salpingo-oophorectomy History of vein stripping Family History Family History Mother History of stroke Other Diabetes mellitus Social History Social History Social History: Surrogate medical decision maker: Mary Martinez, daughter. Code status: Full code. Smoking packs per day: 1 Smoking cigarettes per day: 20.0 Years smoked: 30 Smoking pack-years: 30.00 Smoking status: Former smoker Tobacco type: cigarettes Second hand tobacco smoke exposure: No Smoking end date: 04/05/03 Alcohol intake: never Substance use: never Substance use type: does not use Do You Feel Safe in your Home?: Yes Lack of Transportation: No Lack of Food: Never True Current Housing: I Have Housing Concerned About Future Housing: No Difficulty Paying Gas/Electric Bills: No Difficulty Paying for Meds: No Currently Unemployed: YES Education: High School Diploma/GED Difficulty w/ Childcare or Family Care: No Living arrangements: with family Occupation/Education: retired Gender identity (if verbalized by the patient): Female Sexual Orientation (if Verbalized by the Patient): Straight or Heterosexual Spiritual care concerns: No Agree to blood products: Yes Meds Home Medications and Allergies Home Medications Medication Instructions Recorded Confirmed Type aspirin 81 mg capsule 81 mg PO DAILY 07/16/21 09/23/23 History enalapril maleate 10 mg tablet 10 mg PO DAILY 07/16/21 09/23/23 History insulin aspart U-100 100 unit/mL 20 unit subcut TIDWM 05/29/22 09/23/23 History (3 mL) subcutaneous pen (Novolog FlexPen U-100 Insulin aspart) coenzyme Q10 100 mg capsule 200 mg PO DAILY 02/18/23 09/23/23 History (CoQ-10) mupirocin 2 % topical ointment 1 applic topical TID 7 days #22 02/18/23 09/23/23 Rx grams rosuvastatin 10 mg tablet 10 mg PO DAILY 02/18/23 09/23/23 History insulin degludec 200 unit/mL (3 30 unit subcut DAILY 02/27/23 09/23/23 History mL) subcutaneous pen (Tresiba FlexTouch U-200 insulin) famotidine 20 mg tablet 20 mg PO BID #60 tabs 03/12/23 09/23/23 Rx clopidogrel 75 mg tablet (Plavix) 75 mg PO DAILY 3 weeks #90 tabs 03/30/23 09/23/23 Rx blood-glucose meter,continuous #2 ea 09/23/23 09/23/23 Rx (FreeStyle Haritha 3 Stambaugh) blood-glucose sensor (FreeStyle #2 ea 09/23/23 09/23/23 Rx Haritha 3 Sensor device) paroxetine HCl 20 mg tablet 20 mg PO DAILY #30 tabs 09/23/23 09/23/23 Rx trazodone 50 mg tablet 50 mg PO QHS PRN insomnia #30 tabs 09/23/23 09/23/23 Rx Allergies Allergy/AdvReac Type Severity Reaction Status Date / Time No Known Allergies Allergy Verified 09/23/23
[2023-09-23 18:07] VITALS: BP 101/89; PULSE 58; RESP 16; O2SAT 98
[2023-09-23 20:02] VITALS: BP 135/55; PULSE 73; RESP 16; O2SAT 95
[2023-09-23 20:06] LABS: Glucose Point of Care 324 mg/dl (65-105)
[2023-09-23 20:20] VITALS: BP 132/57; PULSE 66; RESP 16; TEMP 36.3; O2SAT 99
[2023-09-23 21:20] VITALS: BMI 26.6
--- NOTE | 2023-09-23 21:41 | ADMGEN ---
This patient, Ana M Junior, was admitted to [facility] Surg Room 317-02. Patient/family oriented to hospital policies and general routines including ID bracelet, bed and alarms, visiting hours, pain management, procedures, bathroom and other care routines, personal items, smoking policy, room service/diet, and visiting hours. Information on how to activate the Rapid Response Team has been discussed. Patient/Family are encouraged to report perceived risks to care and to ask questions if they do not understand what they are told or what they should do.
--- NOTE | 2023-09-24 00:21 | PM.IMHP ---
H&P: HPI History of Present Illness Date/Time: 09/24/23 00:21 Chief Complaint: Glucose of 500 Narrative: 78-year-old female with a past medical history of depression, essential hypertension, diabetes, coronary artery disease status post bypass, and GERD among other comorbidities who presented to the ER from her primary care physician's office due to glucose greater than 500. Patient is describing symptoms of depression. She has little interest and taking her diabetic medications. She reports that she does not intend to hurt herself but does not have a good reason as to why she is not taking her medications. She realizes she likely needs to be on antidepressants but has not discussed medications with her primary care provider. She tells nursing staff that she for the most part will take her mealtime bolus insulin but has not taken her Tresiba with any real consistency in months. She has not taken her antidepressants since approximately May. She denies any nausea, vomiting, or dysuria. She does have increasing urinary frequency. She denies feeling weak. She was upset that she needed to come to the ER. She actually told nursing staff that she felt that her daughter needed placement and needed a get out of her house. The patient has been since May. It is unclear for daughter and grandson moved in in May or if they had been living there prior to the patient's 's . The patient is perseverating on her dissatisfaction with the fact that her daughter is living with her and is not interested in talking about her reasons for being in the hospital. The patient does occasionally have difficulty with word finding. She states that this is not new since she had a ?minor stroke? weight last year. 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 [facility] Past Medical History Medical History Acute CVA (cerebrovascular accident) Benign essential hypertension CHF (congestive heart failure) Coronary artery disease Cystocele with uterine prolapse Status post colpopexy. 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 History of lumbar laminectomy History of tonsillectomy and adenoidectomy History of total abdominal hysterectomy and bilateral salpingo-oophorectomy History of vein stripping Family History Family History (Updated 09/23/23 @ 22:07 by Guillermina Cota RN) Mother History of stroke Other Diabetes mellitus Sibling Alzheimer disease Social History Social History Social History: Surrogate medical decision maker: Mary Martinez, daughter. Code status: Full code. Smoking packs per day: 1 Smoking cigarettes per day: 20.0 Years smoked: 30 Smoking pack-years: 30.00 Smoking status: Former smoker Second hand tobacco smoke exposure: No Alcohol intake: never Substance use: never Substance use type: does not use Do You Feel Safe in your Home?: Yes Lack of Transportation: No Lack of Food: Never True Current Housing: I Have Housing Concerned About Future Housing: No Difficulty Paying Gas/Electric Bills: No Difficulty Paying for Meds: No Currently Unemployed: YES Education: High School Diploma/GED Difficulty w/ Childcare
[2023-09-24 01:00] LABS: Glucose Point of Care 329 mg/dl (65-105)
[2023-09-24] MEDS: INSULIN GLARGINE (*BKC) 100 UNITS/ML 30 UNITS SUB-Q (04:21)
[2023-09-24 04:45] VITALS: BP 149/61; PULSE 57; RESP 18; TEMP 36.2; O2SAT 94
[2023-09-24 07:27] LABS: Glucose Point of Care 270 mg/dl (65-105)
[2023-09-24 08:37] LABS: Basophils Absolute Auto 0.1 K/mm3 (0.0-0.1); Basophils Percent Auto 1.3 % (0.2-1.2); Eosinophils Absolute Auto 0.2 K/mm3 (0-0.3); Eosinophils Percent Auto 3.1 % (0-4.4); Hematocrit 43.9 % (37.0-47.0); Hemoglobin 14.8 g/dL (12.0-15.0); Immature Granulocyte Absolute 0.01 K/mm3 (0.00-0.031); Immature Granulocyte Percent A 0.2 % (0-0.5); Lymphocytes Absolute Auto 1.24 K/mm3 (0.9-3.2); Lymphocytes Percent Auto 25.9 % (18.3-44.2); Mean Corpuscular HGB Conc 33.7 g/dl (32-36); Mean Corpuscular Hemoglobin 32.2 pg (26-34); Mean Corpuscular Volume 95.6 fl (80-100); Mean Platelet Volume 11.8 fl (7.4-10.4); Monocytes Absolute Auto 0.3 K/mm3 (0.1-0.6); Monocytes Percent Auto 6.9 % (2.6-8.5); Neutrophils Percent Auto 62.6 % (45.5-73.1); Platelet Count Result 198 k/mm3 (150-375); Red Blood Count 4.59 M/mm3 (4.2-5.4); Red Cell Distribution Width 12.5 % (11.5-14.5); White Blood Count 4.8 K/mm3 (4.5-10.0)
[2023-09-24 09:05] LABS: Alanine Aminotransferase 12 U/L (6-35); Alkaline Phosphatase 67 U/L (38-126); Anion Gap 7 mmol/L (4-12); Aspartate Amino Transferase 18 U/L (14-36); Bilirubin,Total 0.7 mg/dL (0.2-1.3); Blood Urea Nitrogen 16 mg/dL (7-17); Calcium 9.5 mg/dL (8.4-10.2); Carbon Dioxide 23 mmol/L (22-30); Chloride 103 mmol/L (98-107); Estimated CRCL calculation 66 ml/min; Estimated Glomerular Filt Rate > 60; Glucose 307 mg/dL (65-110); Magnesium 1.5 mg/dL (1.6-2.3); Potassium 4.1 mmol/L (3.4-5.0); Sodium 133 mmol/L (137-145)
[2023-09-24] MEDS: INSULIN ASPART (*BKC) 100 UNITS/ML SUB-Q ×2 (09:45→12:00)
[2023-09-24] MEDS: INSULIN ASPART (*BKC) 100 UNITS/ML 7 UNITS SUB-Q ×2 (09:45→11:59)
[2023-09-24] MEDS: MAGNESIUM SULF 2 GM/WATER 50ML 2 GM/50 ML BAG IVPB (10:09)
[2023-09-24 11:29] LABS: Glucose Point of Care 316 mg/dl (65-105)
--- NOTE | 2023-09-24 12:51 | PM.DS ---
DS: Admitting Diagnosis Discharge Date 09/24/2023 1000 Admitting Diagnosis Acute UTI, Depression DS: Discharge Diagnosis Discharge Diagnosis (1) Hyperglycemia due to diabetes mellitus: Code(s): E11.65 - Type 2 diabetes mellitus with hyperglycemia Status: Acute (2) Pseudohyponatremia: Code(s): R79.89 - Other specified abnormal findings of blood chemistry Status: Acute (3) Polycythemia hypertonica: Code(s): D75.1 - Secondary polycythemia Status: Acute (4) Dementia: Qualifiers: Dementia behavioral or psychological symptom: with mood disturbance Dementia severity: unspecified severity Dementia type: unspecified type Qualified Code(s): F03.93 - Unspecified dementia, unspecified severity, with mood disturbance Code(s): F03.90 - Unspecified dementia, unspecified severity, without behavioral disturbance, psychotic disturbance, mood disturbance, and anxiety Status: Deleted (5) Non-compliant patient: Code(s): Z91.199 - Patient's noncompliance with other medical treatment and regimen due to unspecified reason Status: Acute (6) Cognitive impairment: Code(s): R41.89 - Other symptoms and signs involving cognitive functions and awareness Status: Acute Plan Patient has hyperglycemia due to noncompliance with medication therapy. I suspect that this is in part due to depression. She does have some element of confusion as well. Is in clear if the confusion is due to hyperglycemia and acute illness versus depression with resulting cognitive decline or possible mild cognitive impairment. In patient's glucoses have improved significantly since admission and with resumption of long-acting insulin. Will place patient on sliding scale insulin and mealtime bolus insulin. Patient been started on a consistent carbohydrate diet. Will treat her underlying chronic illnesses. Patient is not acutely ill-appearing. The patient benefit from initiation of antidepressant therapy and may benefit from psychiatric evaluation inpatient versus outpatient. If after these measures have occurred if membrane difficulties persists patient may benefit from neuropsych evaluations or geriatric evaluation. Patient is having some increased urinary frequency likely due to hyperglycemia. She is not having dysuria. However urine does demonstrate positive nitrates 5100 wbc's and trace leukocyte esterase as well as 4+ bacteria. She could have underlying UTI leading to some symptoms of confusion. Rocephin was started in the ER. Will continue and await urine cultures DS: Summary Hospital Course Hospital Course: Patient is a 78-year-old female with a past medical history of depression, essential hypertension, diabetes, CAD, GERD, CABG who presented to the ED with complaints of a glucose greater than 500. Patient has been complaining of dysuria including pain, burning, urgency and frequency. Currently she states she is feeling okay today. She denies any current chest pain, shortness a breath, nausea, vomiting, diarrhea constipation. She also stated that she was able to walk around well on her own. Currently she is stable for discharge per labs and vital signs. Daughter was present did update her on the plan of care. All agree at this time. Status at Discharge Functional status at discharge: independent ambulation Overall status at discharge: patient is progressing back to baseline Time Spent with Patient Time attestation: Total time spent providing and/or coordinating discharge services: 48 minutes Time spent: Greater than 30 minutes Specific discharge activities: Diagnostic testing, chart review, developing a treatment plan, education, care coordination documentation, physical exam, result review Exam Narrative: General: well-nourished, well-appearing 78-year-old female, sitting up in bed, comfortable, NARD Neuro: awake, alert and oriented x4, speech clear, no focal neuro deficits noted
[2023-09-24] MEDS: CEFDINIR 300 MG CAPSULE PO (13:11)
[2023-09-24 13:56] VITALS: BP 106/61; PULSE 65; RESP 20; TEMP 35.6; O2SAT 98
[2023-09-24 14:45] VITALS: BMI 26.6
--- NOTE | 2023-09-28 13:19 | PC.NURSE ---
Urine culture is sensitive to Cefdinir, which is what pt was sent home on.
== END 2023-09-24 15:50 | disposition home or self-care (01) ==
LOC: ANHED 14:17 → ANH3MEDSUR 20:18
PROVIDERS: Nurse Practitioner; Physician Assistant; Admitting Provider Hospitalist; Emergency Provider Student in an Organized Health Care Education/Training Program; PCP Family Medicine; Visit Provider Hospitalist
DX: E11.65 Type 2 diabetes mellitus with hyperglycemia (principal); I50.9 Heart failure, unspecified; I25.10 Atherosclerotic heart disease of native coronary artery without angina pectoris; I11.0 Hypertensive heart disease with heart failure; E78.5 Hyperlipidemia, unspecified; Z79.4 Long term (current) use of insulin; Z87.891 Personal history of nicotine dependence; Z95.1 Presence of aortocoronary bypass graft; R41.89 Other symptoms and signs involving cognitive functions and awareness; F33.9 Major depressive disorder, recurrent, unspecified; D75.1 Secondary polycythemia; Z91.199 Patient's noncompliance with other medical treatment and regimen due to unspecified reason; R82.90 Unspecified abnormal findings in urine
CPT/HCPCS: 36415; 80048; 80053; 81001; 82010; 82948; 83036; 83735; 84100; 85025; 87077; 87086; 87088; 87186; 96361; 96365; 96374; 99285; A9270; G0378; J0696; J1815; J3475; J7030

== ENCOUNTER 2024-02-17 10:49 | Emergency (ER) | payer MEDICARE, OTHER, SELFPAY ==
[2024-02-17] VITALS (12 sets, daily range): BP systolic 133–174; BP diastolic 57–98; PULSE 49–60; RESP 14–46; TEMP 36.6; O2SAT 94–100
--- NOTE | ~2024-02-17 | XR_ITS ---
EXAMINATION: XR chest 2V DATE: 02/17/2024 11:47 INDICATION: Chest pain, shortness of breath and abdominal pain. TECHNIQUE: frontal and lateral views of the chest were obtained. COMPARISON: Chest radiograph dated 03/25/2023 FINDINGS: Mild streaky lingular discoid atelectasis/scarring at the anterolateral left lower lung zone. No pulm onary edema, pleural effusion or pneumothorax. Heart size is normal. Median sternotomy wires and medi astinal surgical clips are seen, likely from prior coronary artery bypass grafting. Thoracic kyphosis and mild dextrocurvature with moderate spondylosis. IMPRESSION: 1. Mild streaky lingular discoid atelectasis/scarring. Reviewed, dictated and finalized at location B. ER TRIMMER HAND
--- NOTE | ~2024-02-17 | CT_ITS ---
EXAMINATION: CT abdomen pelvis w con DATE: 02/17/2024 12:30 INDICATION: Abdominal pain. TECHNIQUE: Computed tomography (CT) of the abdomen and pelvis was performed with 100 mL Omnipaque 350 intravenous contrast. Automated exposure control and iterative reconstruction technique were employe d. The dose-length product was 672.73 mGy-cm. COMPARISON: CT abdomen and pelvis 02/27/2023 FINDINGS: The visualized portions of the lung bases demonstrate mild atelectasis. No pleural effusion . Cardiomegaly is noted. There are coronary artery calcifications. No pericardial effusion. There is a small sliding hiatal hernia. The liver and spleen are normal. There are changes of cholecystectomy. The pancreas and adrenal glands are normal. There is cortical thinning of the right kidney. There is a 13 mm cyst in left kidney. There are no dilated loops of bowel. There is an umbilical hernia conta ining nonobstructed small bowel. The appendix is normal. There is calcified atherosclerosis of the ao rta and many of the other arteries. There are no pathologically enlarged lymph nodes. There is no rachele e intraperitoneal fluid. There is thoracolumbar levoscoliosis. There is severe thoracic and lumbar sp ondylosis. There are changes of posterior fusion procedure at L5-S1 with pedicle screws. IMPRESSION: 1. Small sliding hiatal hernia. 2. Umbilical hernia containing nonobstructed small bowel. Reviewed, dictated and finalized at location A. ING ROUTE DRIVER
--- NOTE | ~2024-02-17 | US_ITS ---
EXAM: ABDOMEN ULTRASOUND HISTORY: EPIGASTRIC, RIGHT UPPER QUADRANT PAIN COMPARISON: Reference is made to a CT examination of the abdomen and pelvis performed 3 hours earlier FINDINGS: LIVER: The liver is increased in echogenicity and size measuring 20 cm in longitudinal dimension. The main portal vein is patent demonstrating hepatopedal flow GALLBLADDER: Surgically absent. BILE DUCTS: Common bile duct measures 5.4mm. PANCREAS: Limited evaluation of the pancreas secondary to overlying bowel gas RIGHT KIDNEY: Not interrogated on the submitted images VASCULATURE : Negative interrogated on this submitted images. IMPRESSION: Fatty infiltration of an enlarged liver. Examination is otherwise unremarkable. Reviewed, dictated and finalized at location A. H TECHNICIAN
--- NOTE | 2024-02-17 10:54 | ECG_ITS ---
Test Date: 2024-02-17 10:58:54 Measurements Intervals [place] Rate: 57 P: 56 [place]: 215 QRS: -6 QRSD: 152 T: -18 QT: 477 QTc: 467 Interpretive Statements SINUS BRADYCARDIA WITH FIRST DEGREE AV BLOCK WITH OCCASIONAL VENTRICULAR PREMATURE COMPLEXES RIGHT BUNDLE BRANCH BLOCK ANTEROLATERAL INFARCT, AGE INDETERMINATE HIGH LATERAL INFARCT, AGE INDETERMINATE INFERIOR INFARCT, AGE INDETERMINATE BASELINE ARTIFACT- I, II, AVR ABNORMAL ECG No previous ECG available for comparison Electronically Signed On 02-17-2024 11:54:01 FLOOR SCRUBBER by José Antonio Rodgers D.O.
[2024-02-17 11:15] LABS: Basophils Absolute Auto 0.1 K/mm3 (0.0-0.1); Basophils Percent Auto 1.1 % (0.2-1.2); Eosinophils Absolute Auto 0.1 K/mm3 (0-0.3); Eosinophils Percent Auto 0.9 % (0-4.4); Hematocrit 45.8 % (37.0-47.0); Hemoglobin 15.3 g/dL (12.0-15.0); Immature Granulocyte Absolute 0.01 K/mm3 (0.00-0.031); Immature Granulocyte Percent A 0.2 % (0-0.5); Lymphocytes Absolute Auto 1.28 K/mm3 (0.9-3.2); Lymphocytes Percent Auto 22.9 % (18.3-44.2); Mean Corpuscular HGB Conc 33.4 g/dl (32-36); Mean Corpuscular Hemoglobin 31.4 pg (26-34); Mean Corpuscular Volume 93.9 fl (80-100); Mean Platelet Volume 11.4 fl (7.4-10.4); Monocytes Absolute Auto 0.5 K/mm3 (0.1-0.6); Monocytes Percent Auto 8.6 % (2.6-8.5); Neutrophils Absolute Auto 3.7 K/mm3 (1.3-6.7); Neutrophils Percent Auto 66.3 % (45.5-73.1); Platelet Count Result 214 k/mm3 (150-375); Red Blood Count 4.88 M/mm3 (4.2-5.4); Red Cell Distribution Width 12.7 % (11.5-14.5); White Blood Count 5.6 K/mm3 (4.5-10.0)
[2024-02-17 11:26] LABS: INR 1.4
[2024-02-17 11:27] LABS: Partial Thromboplastin Time 33.6 Seconds (22.3-36.8)
[2024-02-17 11:30] LABS: Alanine Aminotransferase 16 U/L (6-35); Albumin Level 4.3 g/dL (3.5-5.1); Alkaline Phosphatase 58 U/L (38-126); Anion Gap 8 mmol/L (4-12); Aspartate Amino Transferase 24 U/L (14-36); Bilirubin,Total 0.6 mg/dL (0.2-1.3); Blood Urea Nitrogen 15 mg/dL (7-17); Calcium 9.9 mg/dL (8.4-10.2); Carbon Dioxide 26 mmol/L (22-30); Chloride 101 mmol/L (98-107); Estimated Glomerular Filt Rate > 60; Glucose 187 mg/dL (65-110); Lipase 88 U/L (23-300); Potassium 4.1 mmol/L (3.4-5.0); Sodium 135 mmol/L (137-145)
--- NOTE | 2024-02-17 11:32 | ECG_ITS ---
Test Date: 2024-02-17 11:33:50 Measurements Intervals [place] Rate: 53 P: 63 [place]: 228 QRS: 7 QRSD: 170 T: -20 QT: 500 QTc: 471 Interpretive Statements SINUS BRADYCARDIA WITH FIRST DEGREE AV BLOCK RIGHT BUNDLE BRANCH BLOCK ANTEROLATERAL INFARCT, AGE INDETERMINATE HIGH LATERAL INFARCT, AGE INDETERMINATE INFERIOR INFARCT, AGE INDETERMINATE ABNORMAL ECG Compared to ECG 02/17/2024 10:58:54 NO SIGNIFICANT CHANGE Electronically Signed On 02-17-2024 12:00:10 NUTS AND BOLTS ASSEMBLER by José Antonio Rodgers D.O.
[2024-02-17 11:42] LABS: Troponin I 0.013 ng/mL (0.000-0.034)
--- NOTE | 2024-02-17 11:44 | PC.NURSE ---
Repeat EKG obtained despite very recent first one. Continuous bedside awake overnight monitor appeared to have increasing ST elevation when compared to EKG, and pt continues experiencing multiple cardiac symptoms. EKG given to MD Bazzi. No further order at this time, awaiting lab results.
--- NOTE | 2024-02-17 12:07 | ED_ITS ---
HPI - Abdominal Pain General Chief Complaint: Abdominal Pain Stated Complaint: stomach pain, chest pain, sob per daughter Time Seen by Provider: 02/17/24 12:05 Source: patient and family Mode of arrival: ambulatory Limitations: no limitations History of Present Illness HPI narrative: 78 years old white female came from home by private car complaining of nausea and abdominal pain started last night. She denies any fever or chills or vomiting or diarrhea or constipation. Patient denies any shortness of breath or chest pain. History of diabetes hyperlipidemia CABG coronary stent CVA, started on Xarelto 2 weeks ago for possible atrial flutter, history of hysterectomy. Patient came to the ED with her daughter Related Data Home Medications Medication Instructions Recorded Confirmed coenzyme Q10 100 mg capsule 200 mg PO DAILY 02/18/23 02/01/24 (CoQ-10) Allergies Allergy/AdvReac Type Severity Reaction Status Date / Time No Known Allergies Allergy Verified 02/01/24 09:38 Review of Systems Review of Systems: All systems reviewed & are unremarkable except as noted in HPI and below PMFSH Past Medical History Medical History Acute CVA (cerebrovascular accident) Benign essential hypertension CHF (congestive heart failure) Coronary artery disease Cystocele with uterine prolapse Status post colpopexy. 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 History of lumbar laminectomy History of tonsillectomy and adenoidectomy History of total abdominal hysterectomy and bilateral salpingo-oophorectomy History of vein stripping Family History Family History Mother History of stroke Other Diabetes mellitus Sibling Alzheimer disease Social History Social History Social History: Surrogate medical decision maker: Mary Martinez, daughter. Code status: Full code. Smoking packs per day: 1 Smoking cigarettes per day: 20.0 Years smoked: 30 Smoking pack-years: 30.00 Smoking status: Former smoker Second hand tobacco smoke exposure: No Alcohol intake: never Substance use: never Substance use type: does not use Do You Feel Safe in your Home?: Yes Lack of Transportation: No Lack of Food: Never True Current Housing: I Have Housing Concerned About Future Housing: No Difficulty Paying Gas/Electric Bills: No Difficulty Paying for Meds: No Currently Unemployed: YES Education: High School Diploma/GED Difficulty w/ Childcare or Family Care: No Living arrangements: with family Occupation/Education: retired Gender identity (if verbalized by the patient): Female Sexual Orientation (if Verbalized by the Patient): Straight or Heterosexual Spiritual care concerns: No Agree to blood products: Yes Exam Narrative: General appearance: Well-developed, well-nourished Skin: Normal color Head: Normocephalic, nontraumatic Eyes: Clear conjunctiva ENT: Oropharynx normal, ears normal, nose normal Neck: Supple, nontender Chest and respiratory: Airway patent, no respiratory distress, no accessory muscle use Heart: Regular rate/rhythm Abdomen: Soft, diffuse abdominal tenderness mainly epigastric and right upper quadrant no organomegaly, quiet bowel sounds Vascular: Normal peripheral pulses, normal capillary refill. Musculoskeletal: Normal range of motion, nontender back Neurologic: Alert and oriented ?3, PORTER MARINA is normal as tested, no gross motor deficit Course Vital Signs Vital signs: Vital Signs Temperature 36.6 C 02/17/24 11:07 Pulse Rate 54 L 02/17/24 11:07 Respiratory Rate 24 H 02/17/24 11:07 Blood Pressure 160/73 H 02/17/24 11:07 Pulse Oximetry 97 02/17/24 11:07 Oxygen Delivery Room Air 02/17/24 11:07 Temperature 36.6 C 02/17/24 11:07 Pulse Rate 55 L 02/17/24 12:00 Respiratory Rate 28 H 02/17/24 12:00 Blood Pressure 173/72 H 02/17/24 12:00 Pulse Oximetry 100 02/17/24 12:00 Oxygen Delivery Room Air 02/17/24 11:07 MDM - Abdominal Pain MDM Narrative Medical decision making narrative: PATIENT CAME TO THE ED WITH ABDOMINAL PAIN HISTORY OF DEMENTIA, DAUGHTER AT THE BEDSIDE VITAL SIGNS SHOWING BLOOD PRESSURE 160/73 HEART RATE 54 RESPIRATION 24 TEMPERATURE 36.6? PHYSICAL EXAMINATION SHOWING MILD TENDERNESS EPIGASTRIC AND MID ABDOMEN. DIFFERENTIAL DIAGNOSIS INCLUDE CONSTIPATION, DIVERTICULITIS, COLITIS, HIATAL HER CLAIR, GASTRITIS, ESOPHAGITIS, URINARY TRACT INFECTION, BLOOD WORKUP TODAY SHOWED NORMAL WBC, INR OF 1.6, GLUCOSE 187, OTHERWISE INSIGNIFICANT URINALYSIS SHOWED NO ACUTE ABNORMALITY CT ABDOMEN AND PELVIS WITH IV CONTRAST SHOWED SLIDING HIATAL HERNIA GALLBLADDER ULTRASOUND SHOWED NO ACUTE ABNORMALITIES. CHEST X-RAY SHOWED NO ACUTE ABNORMALITIES PATIENT FEELS MUCH BETTER, CURRENTLY WOULD LIKE. THE PT WAS DISCHARGED TO HOME.THE PT,S CONDITION UPON DISCHARGE WAS FAIR,EDUCATION WAS PROVIDED TO THE PT IN REFERENCE TO THE FINAL IMPRESSION,DISCHARGE STUDY RESULTS,TREATMENT,PROGNOSIS AND NEED FOR FOLLOW UP . Differential Diagnosis Differential diagnosis: Likely other ( ABOVE) Medical Records Attestation: I reviewed the patient's medical records. Lab Data Attestation: I reviewed the patient's lab results. 02/17/24 11:00 02/17/24 11:00 Labs: Lab Results 02/17/24 02/17/24 02/17/24 Range/Units 11:00 12:55 13:45 WBC 5.6 (4.5-10.0) K/mm3 RBC 4.88 (4.2-5.4) M/mm3 Hgb 15.3 H (12.0-15.0) g/dL Hct 45.8 (37.0-47.0) % MCV 93.9 (80-100) fl MCH 31.4 (26-34) pg MCHC 33.4 (32-36) g/dl RDW 12.7 (11.5-14.5) % Plt Count 214 (150-375) k/mm3 MPV 11.4 H (7.4-10.4) fl Immature Gran % (Auto) 0.2 (0-0.5) % Neut % (Auto) 66.3 (45.5-73.1) % Lymph % (Auto) 22.9 (18.3-44.2) % Grant % (Auto) 8.6 H (2.6-8.5) % Eos % (Auto) 0.9 (0-4.4) % Baso % (Auto) 1.1 (0.2-1.2) % Lymph # (Auto) 1.28 (0.9-3.2) K/mm3 Grant # (Auto) 0.5 (0.1-0.6) K/mm3 Eos # (Auto) 0.1 (0-0.3) K/mm3 Baso # (Auto) 0.1 (0.0-0.1) K/mm3 Abs Immat Gran (auto) 0.01 (0.00-0.031) K/mm3 Absolute Neuts (auto) 3.7 (1.3-6.7) K/mm3 Absolute Nucleated RBC 0.000 (0.0-0.012) K/mm3 Nucleated RBC % 0.0 (0.0-0.2) % PT 17.0 H 19.0 H (11.1-14.7) Seconds INR 1.4 1.6 APTT 33.6 33.6 (22.3-36.8) Seconds Sodium 135 L (137-145) mmol/L Potassium 4.1 (3.4-5.0) mmol/L Chloride 101 (98-107) mmol/L Carbon Dioxide 26 (22-30) mmol/L Anion Gap 8 (4-12) mmol/L BUN 15 (7-17) mg/dL Creatinine 0.50 L (0.7-1.0) mg/dL Estim Creat Clear Calc Not Reportable Estimated GFR > 60 (59 - ) Glucose 187 H (65-110) mg/dL Lactic Acid 2.2 H (0.7-2.0) mmol/L Calcium 9.9 (8.4-10.2) mg/dL Total Bilirubin 0.6 (0.2-1.3) mg/dL AST 24 (14-36) U/L ALT 16 (6-35) U/L Alkaline Phosphatase 58 (38-126) U/L Troponin I 0.013 0.013 (0.000-0.034) ng/mL Total Protein 8.0 (6.3-8.2) g/dL Albumin 4.3 (3.5-5.1) g/dL Lipase 88 85 (23-300) U/L Urine Color Yellow (Yellow) Urine Appearance Clear (Clear) Urine pH 8.0 (5.0-9.0) Ur Specific Bells 1.024 (1.001-1.035) Urine Protein Negative (Negative) mg/dL Urine Glucose (UA) Negative (Negative) mg/dL Urine Ketones Negative (Negative) mg/dL Ur Blood (Man) Negative (Negative) Urine Nitrate Negative (Negative) Urine Bilirubin Negative (Negative) Urine Urobilinogen 0.2 (<2.0) mg/dL Leukocyte Esterase Rfl Negative (Negative) SHELLEY/UL 02/17/24 Range/Units 16:27 WBC (4.5-10.0) K/mm3 RBC (4.2-5.4) M/mm3 Hgb (12.0-15.0) g/dL Hct (37.0-47.0) % MCV (80-100) fl MCH (26-34) pg MCHC (32-36) g/dl RDW (11.5-14.5) % Plt Count (150-375) k/mm3 MPV (7.4-10.4) fl Immature Gran % (Auto) (0-0.5) % Neut % (Auto) (45.5-73.1) % Lymph % (Auto) (18.3-44.2) % Grant % (Auto) (2.6-8.5) % Eos % (Auto) (0-4.4) % Baso % (Auto) (0.2-1.2) % Lymph # (Auto) (0.9-3.2) K/mm3 Grant # (Auto) (0.1-0.6) K/mm3 Eos # (Auto) (0-0.3) K/mm3 Baso # (Auto) (0.0-0.1) K/mm3 Abs Immat Gran (auto) (0.00-0.031) K/mm3 Absolute Neuts (auto) (1.3-6.7) K/mm3 Absolute Nucleated RBC (0.0-0.012) K/mm3 Nucleated RBC % (0.0-0.2) % PT (11.1-14.7) Seconds INR APTT (22.3-36.8) Seconds Sodium (137-145) mmol/L Potassium (3.4-5.0) mmol/L Chloride (98-107) mmol/L Carbon Dioxide (22-30) mmol/L Anion Gap (4-12) mmol/L BUN (7-17) mg/dL Creatinine (0.7-1.0) mg/dL Estim Creat Clear Calc Estimated GFR (59 - ) Glucose (65-110) mg/dL Lactic Acid Pending (0.7-2.0) mmol/L Calcium (8.4-10.2) mg/dL Total Bilirubin (0.2-1.3) mg/dL AST (14-36) U/L ALT (6-35) U/L Alkaline Phosphatase (38-126) U/L Troponin I Pending (0.000-0.034) ng/mL Total Protein (6.3-8.2) g/dL Albumin (3.5-5.1) g/dL Lipase (23-300) U/L Urine Color (Yellow) Urine Appearance (Clear) Urine pH (5.0-9.0) Ur Specific Bells (1.001-1.035) Urine Protein (Negative) mg/dL Urine Glucose (UA) (Negative) mg/dL Urine Ketones (Negative) mg/dL Ur Blood (Man) (Negative) Urine Nitrate (Negative) Urine Bilirubin (Negative) Urine Urobilinogen (<2.0) mg/dL Leukocyte Esterase Rfl (Negative) SHELLEY/UL Imaging Data Radiologist's impression: ITS Impressions Chest X-Ray 02/17/24 11:56 IMPRESSION: 1. Mild streaky lingular discoid atelectasis/scarring. Abdomen/Pelvis CT 02/17/24 12:35 IMPRESSION: 1. Small sliding hiatal hernia. 2. Umbilical hernia containing nonobstructed small bowel. Abdomen Ultrasound 02/17/24 15:28 IMPRESSION: Fatty infiltration of an enlarged liver. Examination is otherwise unremarkable. Critical Care Time Critical Care Time Critical Care Time: Yes Total Critical Care Time: 30 Discharge Plan Discharge Clinical Impression: Abdominal pain, Hiatal hernia Patient Disposition: Home, Self-Care Condition: Stable Instructions: Hiatal Hernia (DC), Abdominal Pain (ED) Additional Instructions: RETURN IF SYMPTOMS ARE WORSENING , CALL YOUR FAMILY PHYSICIAN FOR APPOINTMENT, TAKE TYLENOL NEEDED FOR ACHES AND PAIN, CONTINUE HOME MEDICATIONS. Prescriptions: New pantoprazole [Protonix] 40 mg tablet,delayed release (DR/EC) 40 mg PO QAM 28 Days Qty: 10 0RF No Action coenzyme Q10 [CoQ-10] 100 mg Capsule 200 mg PO DAILY (DME) FreeStyle Haritha 3 [place] Misc See Rx Instructions .Route Qty: 2 1RF Rx Instructions: As directed (DME) FreeStyle Haritha 3 Sensor Device See Rx Instructions .Route Qty: 4 4RF Rx Instructions: As directed enalapril maleate 10 mg tablet 10 mg PO DAILY Qty: 90 4RF insulin degludec [Tresiba FlexTouch U-200] 200 unit/mL (3 mL) insulin pen 30 unit SUBCUT DAILY Qty: 9 0RF insulin aspart U-100 [Novolog FlexPen U-100 Insulin] 100 unit/mL (3 mL) insulin pen 20 unit subcut TIDWM Qty: 15 0RF Rx Instructions: 20 unit subcutaneously TID WITH MEALS rosuvastatin 10 mg tablet 10 mg PO QPM Qty: 90 3RF paroxetine HCl 20 mg tablet 30 mg PO DAILY Qty: 135 2RF memantine 5 mg tablet 5 mg PO BID Qty: 60 2RF trazodone 50 mg tablet 50 mg PO QHS Qty: 90 3RF Xarelto DVT-PE Treat 30d Start 15 mg (42)- 20 mg (9) tablets,dose pack See Rx Instructions PO .COMPLEX Qty: 51 0RF Rx Instructions: take one-15 mg tablet twice daily for 21 days, then one-20 mg tablet once daily; must take with meal/food PO aspirin 81 mg tablet,chewable 81 mg PO QPM Qty: 90 2RF Follow-up/Referrals: Ernestina Luevano MD [Primary Care Provider] -
[2024-02-17] MEDS: MORPHINE SULFATE (*CRX) 4 MG/ML INJ IV PUSH ×2 (12:39→14:40)
[2024-02-17] MEDS: ONDANSETRON INJ 4 MG/2 ML VIAL IV PUSH ×2 (12:39→14:38)
[2024-02-17] MEDS: SODIUM CHLORIDE 0.9% IV 1,000 ML 999 ML IV CONT (12:39)
[2024-02-17 13:09] LABS: Lactic Acid Reflex 2.2 mmol/L (0.7-2.0)
[2024-02-17 13:17] LABS: INR 1.6; Partial Thromboplastin Time 33.6 Seconds (22.3-36.8)
[2024-02-17 13:39] LABS: Lipase 85 U/L (23-300)
--- NOTE | 2024-02-17 13:58 | ECG_ITS ---
Test Date: 2024-02-17 15:48:38 Measurements Intervals [place] Rate: 50 P: 41 NH: 215 QRS: 7 QRSD: 165 T: -26 QT: 521 QTc: 478 Interpretive Statements SINUS BRADYCARDIA WITH FIRST DEGREE AV BLOCK RIGHT BUNDLE BRANCH BLOCK ANTEROLATERAL INFARCT, AGE INDETERMINATE HIGH LATERAL INFARCT, AGE INDETERMINATE INFERIOR INFARCT, AGE INDETERMINATE ABNORMAL ECG Compared to ECG 02/17/2024 11:33:50 NO SIGNIFICANT CHANGE Electronically Signed On 02-17-2024 16:41:27 [employer] FINISHER by José Antonio Rodgers D.O.
[2024-02-17 14:03] LABS: Add Urine Microscopic? NO; Appearance Urine Clear (Clear); Bilirubin Urine Negative (Negative); Blood Urine Negative (Negative); Color Urine Yellow (Yellow); Glucose Urine UA Negative (Negative); Ketones Urine Negative (Negative); Leukocyte Esterase Ur Negative LEU/UL (Negative); Nitrate Urine Negative (Negative); Protein Urine Negative (Negative); Specific Grav Ur 1.024 (1.001-1.035); Urobilinogen Urine 0.2 mg/dL (<2.0)
[2024-02-17 14:22] LABS: Troponin I 0.013 ng/mL (0.000-0.034)
[2024-02-17] MEDS: BELLADONNA ALK/PHENOB ELIX 10 ML, MAG HYDROX/ALUMINUM HYD/SIMETH 30 ML, LIDOCAINE HCL 2... PO (14:44)
--- NOTE | 2024-02-17 14:53 | PC.NURSE ---
Pt had called out with significant pain that suddenly hit just minutes after she was asking if she could eat and go home soon. Pt was breathing fast and couldn't finish a sentence due to pain. MD Locke made aware and came to reassess patient. Pt given pain medication per JUN and reported improvement in pain within minutes.
[2024-02-17 15:57] LABS: Reflex Lactic Acid Yes or No Add Lactic
--- NOTE | 2024-02-17 16:31 | PC.NURSE ---
reg diet dinner tray ordered
[2024-02-17 16:43] LABS: Lactic Acid 1.2 mmol/L (0.7-2.0)
[2024-02-17 16:56] LABS: Troponin I 0.014 ng/mL (0.000-0.034)
== END 2024-02-17 17:49 | disposition home or self-care (01) ==
PROVIDERS: Student in an Organized Health Care Education/Training Program; Emergency Provider Emergency Medicine; PCP Family Medicine
DX: K44.9 Diaphragmatic hernia without obstruction or gangrene (principal); F03.90 Unspecified dementia, unspecified severity, without behavioral disturbance, psychotic disturbance, mood disturbance, and anxiety; I50.9 Heart failure, unspecified; I25.10 Atherosclerotic heart disease of native coronary artery without angina pectoris; I11.0 Hypertensive heart disease with heart failure; I25.2 Old myocardial infarction; E11.319 Type 2 diabetes mellitus with unspecified diabetic retinopathy without macular edema; E11.40 Type 2 diabetes mellitus with diabetic neuropathy, unspecified; E78.5 Hyperlipidemia, unspecified; K21.9 Gastro-esophageal reflux disease without esophagitis; M47.816 Spondylosis without myelopathy or radiculopathy, lumbar region; Z95.1 Presence of aortocoronary bypass graft; Z95.5 Presence of coronary angioplasty implant and graft; Z86.73 Personal history of transient ischemic attack (TIA), and cerebral infarction without residual deficits; Z87.442 Personal history of urinary calculi; Z87.891 Personal history of nicotine dependence; Z98.49 Cataract extraction status, unspecified eye; Z90.710 Acquired absence of both cervix and uterus; Z90.722 Acquired absence of ovaries, bilateral; Z90.79 Acquired absence of other genital organ(s); Z79.4 Long term (current) use of insulin; Z79.01 Long term (current) use of anticoagulants; Z79.899 Other long term (current) drug therapy; K76.0 Fatty (change of) liver, not elsewhere classified; K42.9 Umbilical hernia without obstruction or gangrene
CPT/HCPCS: 36415; 71046; 74177; 76705; 80053; 81003; 83605; 83690; 84484; 85025; 85610; 85730; 93005; 96361; 96374; 96375; 96376; 99284; A9270; J2270; J2405; J7030; Q9967

== ENCOUNTER 2024-03-10 14:07 | Inpatient (IN) | payer MEDICARE, OTHER, SELFPAY ==
[2024-03-10] VITALS (8 sets, daily range): BP systolic 129–196; BP diastolic 75–149; PULSE 72–97; RESP 13–20; TEMP 36.6–36.8; O2SAT 93–100; BMI 26.8
--- NOTE | ~2024-03-10 | CT_ITS ---
CT brain wo con Ordering provider: Germaine Hanley MD History: 78 years Female with . AMS . Comparison: March 04 2023 Technique: CT of the head without contrast. Radiation reduction technique utilized.The dose-length pr oduct was 681 mGy-cm. FINDINGS: BRAIN PARENCHYMA AND CSF SPACES: Mild leukoaraiosis and diffuse cortical atrophy. Mild atheromatous d isease. Old lacunar infarct in the left basal ganglia. No midline shift, mass effect or hemorrhage. The brain parenchyma and CSF spaces are otherwise normal. VISUALIZED PARANASAL SINUSES: Well aerated. MASTOIDS: Well aerated. BONES: The bones appear intact. SOFT TISSUES: Visualized nasopharynx is normal. Superficial soft tissues are normal. IMPRESSION: No acute intracranial findings. Reviewed, dictated and finalized at location A. G[facility] TRAFFIC
--- NOTE | ~2024-03-10 | XR_ITS ---
EXAMINATION: XR chest 1V portable DATE: 03/10/2024 15:44 INDICATION: Altered mental status. TECHNIQUE: A single frontal view of the chest was obtained. COMPARISON: Chest 2 views 02/17/2024, CT abdomen and pelvis 02/17/2024 FINDINGS: There is mild atelectasis in the lower lung zones. No pleural effusion or pneumothorax. Car diomegaly is noted. Median sternotomy wires and mediastinal surgical clips are seen, likely from prio r coronary artery bypass grafting. IMPRESSION: 1. Mild atelectasis in the lower lung zones. 2. Cardiomegaly. Reviewed, dictated and finalized at location A. SH INSPECTOR
--- NOTE | 2024-03-10 14:39 | ECG_ITS ---
Test Date: 2024-03-10 15:00:45 Measurements Intervals [place] Rate: 73 P: -22 FL: 165 QRS: 20 QRSD: 158 T: -42 QT: 473 QTc: 522 Interpretive Statements SINUS RHYTHM POSSIBLE LEFT ATRIAL ENLARGEMENT [-0.1mV P-WAVE IN V1/V2] RIGHT BUNDLE BRANCH BLOCK ANTERIOR MYOCARDIAL INFARCTION , OF INDETERMINATE AGE [40+ ms Q WAVE AND/OR ST/T ABNORMALITY IN V3/V4] INFERIOR MYOCARDIAL INFARCTION , OF INDETERMINATE AGE [40+ ms Q WAVE AND/OR ST/T ABNORMALITY IN II/aVF] MODERATE T-WAVE ABNORMALITY, CONSIDER LATERAL ISCHEMIA [-0.1+ mV T-WAVE IN I/aVL/V5/V6] Compared to ECG 02/17/2024 15:48:38 Sinus bradycardia no longer present Electronically Signed On 03-11-2024 14:21:51 ASSISTANT FINANCE MANAGER by Efe Marks M.D.
[2024-03-10 15:05] LABS: Basophils Percent Auto 0.8 % (0.2-1.2); Eosinophils Absolute Auto 0.1 K/mm3 (0-0.3); Eosinophils Percent Auto 1.5 % (0-4.4); Hematocrit 44.2 % (37.0-47.0); Hemoglobin 15.1 g/dL (12.0-15.0); Immature Granulocyte Absolute 0.01 K/mm3 (0.00-0.031); Immature Granulocyte Percent A 0.2 % (0-0.5); Lymphocytes Absolute Auto 0.93 K/mm3 (0.9-3.2); Lymphocytes Percent Auto 17.7 % (18.3-44.2); Mean Corpuscular HGB Conc 34.2 g/dl (32-36); Mean Corpuscular Hemoglobin 32.1 pg (26-34); Mean Platelet Volume 11.9 fl (7.4-10.4); Monocytes Absolute Auto 0.4 K/mm3 (0.1-0.6); Monocytes Percent Auto 8.2 % (2.6-8.5); Neutrophils Absolute Auto 3.8 K/mm3 (1.3-6.7); Neutrophils Percent Auto 71.6 % (45.5-73.1); Platelet Count Result 228 k/mm3 (150-375); Red Cell Distribution Width 12.2 % (11.5-14.5); White Blood Count 5.2 K/mm3 (4.5-10.0)
[2024-03-10 15:11] LABS: Prothrombin Time 13.5 Seconds (11.1-14.7)
[2024-03-10 15:12] LABS: Partial Thromboplastin Time 26.5 Seconds (22.3-36.8)
[2024-03-10 15:28] LABS: Alanine Aminotransferase 18 U/L (6-35); Albumin Level 4.8 g/dL (3.5-5.1); Alkaline Phosphatase 96 U/L (38-126); Anion Gap 9 mmol/L (4-12); Aspartate Amino Transferase 23 U/L (14-36); Bilirubin,Total 0.6 mg/dL (0.2-1.3); Blood Urea Nitrogen 23 mg/dL (7-17); Calcium 9.6 mg/dL (8.4-10.2); Carbon Dioxide 25 mmol/L (22-30); Chloride 95 mmol/L (98-107); Estimated CRCL calculation 43 ml/min; Estimated Glomerular Filt Rate > 60; Glucose 722 mg/dL (65-110); Potassium 4.7 mmol/L (3.4-5.0); Sodium 129 mmol/L (137-145)
--- NOTE | 2024-03-10 15:36 | ED_ITS ---
HPI - Altered Mental Status General Chief Complaint: Altered Mental Status Stated Complaint: AMS Time Seen by Provider: 03/10/24 15:28 History of Present Illness HPI narrative: 78-year-old female presenting with altered mental status. Patient was reportedly going on a 2 or of a nursing facility when she became agitated so they advised coming to the ER. On my evaluation, patient is A&O x1. She is rambling about fighting with her sister. She denies any complaints. Related Data Home Medications ?Medication ?Instructions ?Recorded ?Confirmed ?Last Taken ?Type coenzyme Q10 100 mg capsule 200 mg PO DAILY 02/18/23 03/10/24 09/21/23 21:00 History (CoQ-10) carvedilol 25 mg tablet 25 mg PO BID 03/11/24 03/11/24 Unknown History rivaroxaban 20 mg tablet 20 mg PO QPM 03/11/24 03/11/24 03/09/24 History Allergies Allergy/AdvReac Type Severity Reaction Status Date / Time No Known Allergies Allergy Verified 03/10/24 14:16 Review of Systems 2 Review of Systems: All systems reviewed & are unremarkable except as noted in HPI and below PMFSH Past Medical History Medical History Acute CVA (cerebrovascular accident) Benign essential hypertension CHF (congestive heart failure) Coronary artery disease Cystocele with uterine prolapse Status post colpopexy. 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 History of lumbar laminectomy History of tonsillectomy and adenoidectomy History of total abdominal hysterectomy and bilateral salpingo-oophorectomy History of vein stripping Family History Family History Mother History of stroke Other Diabetes mellitus Sibling Alzheimer disease Social History Social History Social History: Surrogate medical decision maker: Mary Martinez, daughter. Code status: Full code. Smoking packs per day: 1 Smoking cigarettes per day: 20.0 Years smoked: 30 Smoking pack-years: 30.00 Smoking status: Never smoker Second hand tobacco smoke exposure: No Alcohol intake: never Substance use: never Substance use type: does not use Do You Feel Safe in your Home?: No Lack of Transportation: No Lack of Food: Never True Current Housing: Decline to Answer Concerned About Future Housing: Decline to Answer Difficulty Paying Gas/Electric Bills: Decline to Answer Difficulty Paying for Meds: Decline to Answer Currently Unemployed: Decline to Answer Education: Don't Know Difficulty w/ Childcare or Family Care: Decline to Answer Living arrangements: with family Occupation/Education: retired Gender identity (if verbalized by the patient): Female Sexual Orientation (if Verbalized by the Patient): Straight or Heterosexual Spiritual care concerns: No Agree to blood products: Yes Exam 2 Narrative: GENERAL: Nontoxic, rambling speech HEAD: Normocephalic, atraumatic. EYES: PERRLA and EOMI. ENT: Mucous membranes dry NECK: Supple. CHEST: Clear to auscultation. No respiratory distress. HEART: Regular rate and rhythm. No murmur heard. Normal peripheral pulses. ABDOMEN: Soft, nontender, nondistended EXTREMITIES: Normal range of motion SKIN: Warm, dry, no rash. NEURO: Alert and oriented x1. moves all extremities spontaneously PSYCH: rambling about fighting with her sister Course Vital Signs Vital signs: Vital Signs Temperature 97.9 F 03/10/24 14:10 Pulse Rate 97 03/10/24 14:10 Respiratory Rate 20 03/10/24 14:10 Blood Pressure 130/114 H 03/10/24 14:10 Pulse Oximetry 99 03/10/24 14:10 Oxygen Delivery Room Air 03/10/24 14:10 Temperature 97.9 F 03/15/24 13:50 Pulse Rate 58 L 03/15/24 13:50 Respiratory Rate 14 03/15/24 13:50 Blood Pressure 112/52 L 03/15/24 13:50 Pulse Oximetry 98 03/15/24 13:50 Oxygen Delivery Room Air 03/14/24 20:00 MDM - Altered Mental Status MDM Narrative Medical decision making narrative: 78-year-old female presenting with altered mental status. vital signs within normal limits. Exam remarkable for the above. Spoke with the patient's daughter who states that she lives with the patient and she is concerned that she is no longer able to provide an appropriate level of care. Patient was diagnosed with dementia sometime ago and has been declining. She has now started to leave the house randomly and has gotten lost in the winter weather. They went to a nursing facility today and the patient became agitated and started threatening people and stating she refused to stay there. Police ultimately had to be called and she threatened them so the senior care recommended she come to the ER. Patient requires admission for placement. She is no longer safe at home in her family is concerned that she keeps escaping and is the middle of March. The patient is A&O x1 for me and rambling about arguing with her sister. I do not feel that she has decision-making capacity at this time. I spoke with the hospitalist who has accepted her for admission for further management of hyperglycemia with plans for placement in a memory care facility. IV fluids and subcutaneous insulin have been ordered at this time. Differential Diagnosis Differential diagnosis: Likely altered mental status, delirium, dementia and hyponatremia Medical Records Attestation: I reviewed the patient's medical records. Lab Data Attestation: I reviewed the patient's lab results. 03/15/24 06:15 03/15/24 06:15 Labs: Lab Results 03/10/24 03/10/24 03/10/24 Range/Units 14:55 16:36 16:50 WBC 5.2 (4.5-10.0) K/mm3 RBC 4.70 (4.2-5.4) M/mm3 Hgb 15.1 H (12.0-15.0) g/dL Hct 44.2 (37.0-47.0) % MCV 94.0 (80-100) fl MCH 32.1 (26-34) pg MCHC 34.2 (32-36) g/dl RDW 12.2 (11.5-14.5) % Plt Count 228 (150-375) k/mm3 MPV 11.9 H (7.4-10.4) fl Immature Gran % (Auto) 0.2 (0-0.5) % Neut % (Auto) 71.6 (45.5-73.1) % Lymph % (Auto) 17.7 L (18.3-44.2) % [place] % (Auto) 8.2 (2.6-8.5) % Eos % (Auto) 1.5 (0-4.4) % Baso % (Auto) 0.8 (0.2-1.2) % Lymph # (Auto) 0.93 (0.9-3.2) K/mm3 [place] # (Auto) 0.4 (0.1-0.6) K/mm3 Eos # (Auto) 0.1 (0-0.3) K/mm3 Baso # (Auto) 0.0 (0.0-0.1) K/mm3 Abs Immat Gran (auto) 0.01 (0.00-0.031) K/mm3 Absolute Neuts (auto) 3.8 (1.3-6.7) K/mm3 Absolute Nucleated RBC 0.000 (0.0-0.012) K/mm3 Nucleated RBC % 0.0 (0.0-0.2) % PT 13.5 (11.1-14.7) Seconds INR 1.0 APTT 26.5 (22.3-36.8) Seconds Sodium 129 L (137-145) mmol/L Potassium 4.7 (3.4-5.0) mmol/L Chloride 95 L (98-107) mmol/L Carbon Dioxide 25 (22-30) mmol/L Anion Gap 9 (4-12) mmol/L BUN 23 H (7-17) mg/dL Creatinine 0.80 (0.7-1.0) mg/dL Estim Creat Clear Calc 43 ml/min Estimated GFR > 60 (59 - ) Glucose 722 H* (65-110) mg/dL POC Capillary Glucose (65-105) mg/dl Hemoglobin A1c (<5.7) % Calcium 9.6 (8.4-10.2) mg/dL Total Bilirubin 0.6 (0.2-1.3) mg/dL AST 23 (14-36) U/L ALT 18 (6-35) U/L Alkaline Phosphatase 96 (38-126) U/L Total Protein 8.0 (6.3-8.2) g/dL Albumin 4.8 (3.5-5.1) g/dL Beta-Hydroxybutyrate/Acetoacetate 0.92 H (0.02-0.27) mmol/L Urine Color Yellow (Yellow) Urine Appearance Clear (Clear) Urine pH 6.5 (5.0-9.0) Ur Specific [place] 1.032 (1.001-1.035) Urine Protein Negative (Negative) mg/dL Urine Glucose (UA) 3+ H (Negative) mg/dL Urine Ketones Trace H (Negative) mg/dL Ur Blood (Man) Negative (Negative) Urine Nitrate Negative (Negative) Urine Bilirubin Negative (Negative) Urine Urobilinogen 0.2 (<2.0) mg/dL Leukocyte Esterase Rfl Negative (Negative) SHELLEY/UL Urine Opiates Screen Negative (Negative) Urine Methadone Screen Negative (Negative) Ur Barbiturates Screen Negative (Negative) Ur Phencyclidine Scrn Negative (Negative) Ur Amphetamine Screen Negative (Negative) U Benzodiazepines Scrn Negative (Negative) Urine Cocaine Screen Negative (Negative) U Cannabinoids Screen Negative (Negative) Influenza A (RT-PCR) Negative (Negative) Influenza B (RT-PCR) Negative (Negative) RSV (RT-PCR) Negative (Negative) SARS-CoV-2 RNA (RT-PCR) Negative (Negative) 03/10/24 03/10/24 03/10/24 Range/Units 18:00 18:35 21:03 WBC (4.5-10.0) K/mm3 RBC (4.2-5.4) M/mm3 Hgb (12.0-15.0) g/dL Hct (37.0-47.0) % MCV (80-100) fl MCH (26-34) pg MCHC (32-36) g/dl RDW (11.5-14.5) % Plt Count (150-375) k/mm3 MPV (7.4-10.4) fl Immature Gran % (Auto) (0-0.5) % Neut % (Auto) (45.5-73.1) % Lymph % (Auto) (18.3-44.2) % Catron % (Auto) (2.6-8.5) % Eos % (Auto) (0-4.4) % Baso % (Auto) (0.2-1.2) % Lymph # (Auto) (0.9-3.2) K/mm3 [place] # (Auto) (0.1-0.6) K/mm3 Eos # (Auto) (0-0.3) K/mm3 Baso # (Auto) (0.0-0.1) K/mm3 Abs Immat Gran (auto) (0.00-0.031) K/mm3 Absolute Neuts (auto) (1.3-6.7) K/mm3 Absolute Nucleated RBC (0.0-0.012) K/mm3 Nucleated RBC % (0.0-0.2) % PT (11.1-14.7) Seconds INR APTT (22.3-36.8) Seconds Sodium 133 L (137-145) mmol/L Potassium 4.1 (3.4-5.0) mmol/L Chloride 101 (98-107) mmol/L Carbon Dioxide 24 (22-30) mmol/L Anion Gap 8 (4-12) mmol/L BUN 19 H (7-17) mg/dL Creatinine 0.60 L (0.7-1.0) mg/dL Estim Creat Clear Calc 56 ml/min Estimated GFR > 60 (59 - ) Glucose 487 H (65-110) mg/dL POC Capillary Glucose 494 H 342 H (65-105) mg/dl Hemoglobin A1c (<5.7) % Calcium 9.0 (8.4-10.2) mg/dL Total Bilirubin 0.4 (0.2-1.3) mg/dL AST 21 (14-36) U/L ALT 16 (6-35) U/L Alkaline Phosphatase 83 (38-126) U/L Total Protein 7.0 (6.3-8.2) g/dL Albumin 4.3 (3.5-5.1) g/dL Beta-Hydroxybutyrate/Acetoacetate (0.02-0.27) mmol/L Urine Color (Yellow) Urine Appearance (Clear) Urine pH (5.0-9.0) Ur Specific [place] (1.001-1.035) Urine Protein (Negative) mg/dL Urine Glucose (UA) (Negative) mg/dL Urine Ketones (Negative) mg/dL Ur Blood (Man) (Negative) Urine Nitrate (Negative) Urine Bilirubin (Negative) Urine Urobilinogen (<2.0) mg/dL Leukocyte Esterase Rfl (Negative) SHELLEY/UL Urine Opiates Screen (Negative) Urine Methadone Screen (Negative) Ur Barbiturates Screen (Negative) Ur Phencyclidine Scrn (Negative) Ur Amphetamine Screen (Negative) U Benzodiazepines Scrn (Negative) Urine Cocaine Screen (Negative) U Cannabinoids Screen (Negative) Influenza A (RT-PCR) (Negative) Influenza B (RT-PCR) (Negative) RSV (RT-PCR) (Negative) SARS-CoV-2 RNA (RT-PCR) (Negative) 03/11/24 03/11/24 03/11/24 Range/Units 06:28 07:56 11:51 WBC 5.7 (4.5-10.0) K/mm3 RBC 4.48 (4.2-5.4) M/mm3 Hgb 14.2 (12.0-15.0) g/dL Hct 42.3 (37.0-47.0) % MCV 94.4 (80-100) fl MCH 31.7 (26-34) pg MCHC 33.6 (32-36) g/dl RDW 12.3 (11.5-14.5) % Plt Count 216 (150-375) k/mm3 MPV 11.7 H (7.4-10.4) fl Immature Gran % (Auto) 0.2 (0-0.5) % Neut % (Auto) 63.4 (45.5-73.1) % Lymph % (Auto) 24.5 (18.3-44.2) % [place] % (Auto) 8.4 (2.6-8.5) % Eos % (Auto) 2.8 (0-4.4) % Baso % (Auto) 0.7 (0.2-1.2) % Lymph # (Auto) 1.40 (0.9-3.2) K/mm3 [place] # (Auto) 0.5 (0.1-0.6) K/mm3 Eos # (Auto) 0.2 (0-0.3) K/mm3 Baso # (Auto) 0.0 (0.0-0.1) K/mm3 Abs Immat Gran (auto) 0.01 (0.00-0.031) K/mm3 Absolute Neuts (auto) 3.6 (1.3-6.7) K/mm3 Absolute Nucleated RBC 0.000 (0.0-0.012) K/mm3 Nucleated RBC % 0.0 (0.0-0.2) % PT (11.1-14.7) Seconds INR APTT (22.3-36.8) Seconds Sodium 132 L (137-145) mmol/L Potassium 3.9 (3.4-5.0) mmol/L Chloride 101 (98-107) mmol/L Carbon Dioxide 23 (22-30) mmol/L Anion Gap 8 (4-12) mmol/L BUN 13 D (7-17) mg/dL Creatinine 0.50 L (0.7-1.0) mg/dL Estim Creat Clear Calc 66 ml/min Estimated GFR > 60 (59 - ) Glucose 321 H (65-110) mg/dL POC Capillary Glucose 323 H 406 H (65-105) mg/dl Hemoglobin A1c 13.0 H (<5.7) % Calcium 9.3 (8.4-10.2) mg/dL Total Bilirubin (0.2-1.3) mg/dL AST (14-36) U/L ALT (6-35) U/L Alkaline Phosphatase (38-126) U/L Total Protein (6.3-8.2) g/dL Albumin (3.5-5.1) g/dL Beta-Hydroxybutyrate/Acetoacetate (0.02-0.27) mmol/L Urine Color (Yellow) Urine Appearance (Clear) Urine pH (5.0-9.0) Ur Specific [place] (1.001-1.035) Urine Protein (Negative) mg/dL Urine Glucose (UA) (Negative) mg/dL Urine Ketones (Negative) mg/dL Ur Blood (Man) (Negative) Urine Nitrate (Negative) Urine Bilirubin (Negative) Urine Urobilinogen (<2.0) mg/dL Leukocyte Esterase Rfl (Negative) SHELLEY/UL Urine Opiates Screen (Negative) Urine Methadone Screen (Negative) Ur Barbiturates Screen (Negative) Ur Phencyclidine Scrn (Negative) Ur Amphetamine Screen (Negative) U Benzodiazepines Scrn (Negative) Urine Cocaine Screen (Negative) U Cannabinoids Screen (Negative) Influenza A (RT-PCR) (Negative) Influenza B (RT-PCR) (Negative) RSV (RT-PCR) (Negative) SARS-CoV-2 RNA (RT-PCR) (Negative) 03/11/24 03/11/24 03/12/24 Range/Units 16:33 20:13 04:41 WBC (4.5-10.0) K/mm3 RBC (4.2-5.4) M/mm3 Hgb (12.0-15.0) g/dL Hct (37.0-47.0) % MCV (80-100) fl MCH (26-34) pg MCHC (32-36) g/dl RDW (11.5-14.5) % Plt Count (150-375) k/mm3 MPV (7.4-10.4) fl Immature Gran % (Auto) (0-0.5) % Neut % (Auto) (45.5-73.1) % Lymph % (Auto) (18.3-44.2) % [place] % (Auto) (2.6-8.5) % Eos % (Auto) (0-4.4) % Baso % (Auto) (0.2-1.2) % Lymph # (Auto) (0.9-3.2) K/mm3 [place] # (Auto) (0.1-0.6) K/mm3 Eos # (Auto) (0-0.3) K/mm3 Baso # (Auto) (0.0-0.1) K/mm3 Abs Immat Gran (auto) (0.00-0.031) K/mm3 Absolute Neuts (auto) (1.3-6.7) K/mm3 Absolute Nucleated RBC (0.0-0.012) K/mm3 Nucleated RBC % (0.0-0.2) % PT (11.1-14.7) Seconds INR APTT (22.3-36.8) Seconds Sodium (137-145) mmol/L Potassium (3.4-5.0) mmol/L Chloride (98-107) mmol/L Carbon Dioxide (22-30) mmol/L Anion Gap (4-12) mmol/L BUN (7-17) mg/dL Creatinine (0.7-1.0) mg/dL Estim Creat Clear Calc ml/min Estimated GFR (59 - ) Glucose (65-110) mg/dL POC Capillary Glucose 273 H 99 290 H (65-105) mg/dl Hemoglobin A1c (<5.7) % Calcium (8.4-10.2) mg/dL Total Bilirubin (0.2-1.3) mg/dL AST (14-36) U/L ALT (6-35) U/L Alkaline Phosphatase (38-126) U/L Total Protein (6.3-8.2) g/dL Albumin (3.5-5.1) g/dL Beta-Hydroxybutyrate/Acetoacetate (0.02-0.27) mmol/L Urine Color (Yellow) Urine Appearance (Clear) Urine pH (5.0-9.0) Ur Specific [place] (1.001-1.035) Urine Protein (Negative) mg/dL Urine Glucose (UA) (Negative) mg/dL Urine Ketones (Negative) mg/dL Ur Blood (Man) (Negative) Urine Nitrate (Negative) Urine Bilirubin (Negative) Urine Urobilinogen (<2.0) mg/dL Leukocyte Esterase Rfl (Negative) SHELLEY/UL Urine Opiates Screen (Negative) Urine Methadone Screen (Negative) Ur Barbiturates Screen (Negative) Ur Phencyclidine Scrn (Negative) Ur Amphetamine Screen (Negative) U Benzodiazepines Scrn (Negative) Urine Cocaine Screen (Negative) U Cannabinoids Screen (Negative) Influenza A (RT-PCR) (Negative) Influenza B (RT-PCR) (Negative) RSV (RT-PCR) (Negative) SARS-CoV-2 RNA (RT-PCR) (Negative) 03/12/24 03/12/24 03/12/24 Range/Units 06:18 08:15 11:59 WBC 4.5 (4.5-10.0) K/mm3 RBC 4.12 L (4.2-5.4) M/mm3 Hgb 13.0 (12.0-15.0) g/dL Hct 39.1 (37.0-47.0) % MCV 94.9 (80-100) fl MCH 31.6 (26-34) pg MCHC 33.2 (32-36) g/dl RDW 12.4 (11.5-14.5) % Plt Count 184 (150-375) k/mm3 MPV 11.2 H (7.4-10.4) fl Immature Gran % (Auto) (0-0.5) % Neut % (Auto) (45.5-73.1) % Lymph % (Auto) (18.3-44.2) % [place] % (Auto) (2.6-8.5) % Eos % (Auto) (0-4.4) % Baso % (Auto) (0.2-1.2) % Lymph # (Auto) (0.9-3.2) K/mm3 [place] # (Auto) (0.1-0.6) K/mm3 Eos # (Auto) (0-0.3) K/mm3 Baso # (Auto) (0.0-0.1) K/mm3 Abs Immat Gran (auto) (0.00-0.031) K/mm3 Absolute Neuts (auto) (1.3-6.7) K/mm3 Absolute Nucleated RBC (0.0-0.012) K/mm3 Nucleated RBC % (0.0-0.2) % PT (11.1-14.7) Seconds INR APTT (22.3-36.8) Seconds Sodium 130 L (137-145) mmol/L Potassium 4.3 (3.4-5.0) mmol/L Chloride 103 (98-107) mmol/L Carbon Dioxide 25 (22-30) mmol/L Anion Gap 2 L (4-12) mmol/L BUN 19 H (7-17) mg/dL Creatinine 0.50 L (0.7-1.0) mg/dL Estim Creat Clear Calc 66 ml/min Estimated GFR > 60 (59 - ) Glucose 291 H (65-110) mg/dL POC Capillary Glucose 310 H 206 H (65-105) mg/dl Hemoglobin A1c (<5.7) % Calcium 8.9 (8.4-10.2) mg/dL Total Bilirubin 0.5 (0.2-1.3) mg/dL AST 21 (14-36) U/L ALT 12 (6-35) U/L Alkaline Phosphatase 57 (38-126) U/L Total Protein 6.0 L (6.3-8.2) g/dL Albumin 3.4 L (3.5-5.1) g/dL Beta-Hydroxybutyrate/Acetoacetate (0.02-0.27) mmol/L Urine Color (Yellow) Urine Appearance (Clear) Urine pH (5.0-9.0) Ur Specific [place] (1.001-1.035) Urine Protein (Negative) mg/dL Urine Glucose (UA) (Negative) mg/dL Urine Ketones (Negative) mg/dL Ur Blood (Man) (Negative) Urine Nitrate (Negative) Urine Bilirubin (Negative) Urine Urobilinogen (<2.0) mg/dL Leukocyte Esterase Rfl (Negative) SHELLEY/UL Urine Opiates Screen (Negative) Urine Methadone Screen (Negative) Ur Barbiturates Screen (Negative) Ur Phencyclidine Scrn (Negative) Ur Amphetamine Screen (Negative) U Benzodiazepines Scrn (Negative) Urine Cocaine Screen (Negative) U Cannabinoids Screen (Negative) Influenza A (RT-PCR) (Negative) Influenza B (RT-PCR) (Negative) RSV (RT-PCR) (Negative) SARS-CoV-2 RNA (RT-PCR) (Negative) ABG Data ABG results: 03/10/24 16:02 VBG pH 7.359 VBG pCO2 44.5 VBG pO2 30.8 L VBG HCO3 24.5 O2 Delivery Device Room air O2 Liters/Min 0.0 FiO2 21 Imaging Data Radiologist's impression: ITS Impressions Chest X-Ray 03/10/24 15:44 IMPRESSION: 1. Mild atelectasis in the lower lung zones. 2. Cardiomegaly. Head CT 03/10/24 15:55 IMPRESSION: No acute intracranial findings. Critical Care Time Critical Care Time Critical Care Time: No Discharge Plan Discharge Clinical Impression: Hyperglycemia due to type 2 diabetes mellitus, Dementia Patient Disposition: Still a Patient Condition: Improved
[2024-03-10] MEDS: SODIUM CHLORIDE 0.9% IV 1,000 ML 999 ML IV CONT ×2 (15:40→16:49)
--- NOTE | 2024-03-10 15:46 | PCRCNOTE ---
Came to draw ABG and Pt. was not in the room; had been taken for imaging.
[2024-03-10 15:51] LABS: Beta-Hydroxybutyrate/Acetoacetate 0.92 mmol/L (0.02-0.27)
[2024-03-10 16:07] LABS: Fractional Inspired Oxygen 21 %; HCO3 VBG 24.5 mEq/l (24.0-30.0); PCO2 VBG 44.5 mmHg (42.0-48.0); PO2 VBG 30.8 mmHg (35.0-45.0); pH VBG 7.359 (7.300-7.400)
[2024-03-10 16:09] LABS: Device ROOM AIR
[2024-03-10 16:57] LABS: Add Urine Microscopic? NO; Appearance Urine Clear (Clear); Bilirubin Urine Negative (Negative); Blood Urine Negative (Negative); Color Urine Yellow (Yellow); Glucose Urine UA 3+ mg/dL (Negative); Ketones Urine Trace mg/dL (Negative); Leukocyte Esterase Ur Negative LEU/UL (Negative); Nitrate Urine Negative (Negative); Protein Urine Negative (Negative); Specific Grav Ur 1.032 (1.001-1.035); Urobilinogen Urine 0.2 mg/dL (<2.0); pH Urine 6.5 (5.0-9.0)
[2024-03-10 17:16] LABS: Influenza A QL RT-PCR Negative (Negative); Influenza B QL RT-PCR Negative (Negative); RSV RNA, RT-PCR Negative (Negative); SARS-CoV-2 RNA PCR Negative (Negative)
--- NOTE | 2024-03-10 17:56 | PM.IMHP ---
H&P: HPI History of Present Illness Date/Time: 03/10/24 17:56 Chief Complaint: And confusion Narrative: Patient is 78-year-old female who has been [facility] because she has been wandering around and very agitated unable to stay in [facility] could not keep restrained patient walked out of the [facility] many times and tried to elope patient very confused history of dementia. Patient be brought to ER for further workup and evaluation for possible causes of her confusion and altered mental status. Also the emergency room patient's blood sugar was noted to be up in the 700s but not in any DKA possibly due to noncompliance of medications Review of Systems Review of Systems: Unable to obtain [facility] Past Medical History Medical History Acute CVA (cerebrovascular accident) Benign essential hypertension CHF (congestive heart failure) Coronary artery disease Cystocele with uterine prolapse Status post colpopexy. 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 History of lumbar laminectomy History of tonsillectomy and adenoidectomy History of total abdominal hysterectomy and bilateral salpingo-oophorectomy History of vein stripping Family History Family History Mother History of stroke Other Diabetes mellitus Sibling Alzheimer disease Social History Social History Social History: Surrogate medical decision maker: Mary Martinez, daughter. Code status: Full code. Smoking packs per day: 1 Smoking cigarettes per day: 20.0 Years smoked: 30 Smoking pack-years: 30.00 Smoking status: Former smoker Second hand tobacco smoke exposure: No Alcohol intake: never Substance use: never Substance use type: does not use Do You Feel Safe in your Home?: Yes Lack of Transportation: No Lack of Food: Never True Current Housing: I Have Housing Concerned About Future Housing: No Difficulty Paying Gas/Electric Bills: No Difficulty Paying for Meds: No Currently Unemployed: YES Education: High School Diploma/GED Difficulty w/ Childcare or Family Care: No Living arrangements: with family Occupation/Education: retired Gender identity (if verbalized by the patient): Female Sexual Orientation (if Verbalized by the Patient): Straight or Heterosexual Spiritual care concerns: No Agree to blood products: Yes Meds Home Medications and Allergies Home Medications Medication Instructions Recorded Confirmed Type coenzyme Q10 100 mg capsule 200 mg PO DAILY 02/18/23 02/01/24 History (CoQ-10) blood-glucose meter,continuous #2 ea 09/23/23 02/01/24 Rx (FreeStyle Haritha 3 [place]) aspirin 81 mg chewable tablet 81 mg PO QPM #90 tabs 10/21/23 02/01/24 Rx blood-glucose sensor (FreeStyle #4 ea 02/01/24 02/01/24 Rx Haritha 3 Sensor device) insulin degludec 200 unit/mL (3 30 unit (0.15 mL) subcut DAILY #9 02/01/24 02/01/24 Rx mL) subcutaneous pen (Tresiba mL FlexTouch U-200 insulin) memantine 5 mg tablet 5 mg PO BID #60 tabs 02/01/24 02/01/24 Rx paroxetine HCl 20 mg tablet 30 mg PO DAILY #135 tabs 02/01/24 02/01/24 Rx rivaroxaban 15 mg (42)-20 mg (9) See Rx Instructions PO .COMPLEX 02/01/24 02/01/24 Rx tablets in a starter pack (Xarelto #51 ea DVT-PE Treatment 30-Day Starter) rosuvastatin 10 mg tablet 10 mg PO QPM #90 tabs 02/01/24 02/01/24 Rx trazodone 50 mg tablet 50 mg PO QHS #90 tabs 02/01/24 02/01/24 Rx pantoprazole 40 mg tablet,delayed 40 mg PO QAM 4 weeks #10 tabs 02/17/24 Rx release (Protonix) insulin aspart U-100 100 unit/mL 20 unit (0.2 mL) subcut TIDWM #15 02/21/24 Rx (3 mL) subcutaneous pen (Novolog mL FlexPen U-100 Insulin aspart) enalapril maleate 10 mg tablet 20 mg PO DAILY #90 tabs 03/01/24 03/01/24 Rx divalproex 125 mg tablet,delayed 125 mg PO BID #60 tabs 03/09/24 Rx release (Depakote) Allergies Allergy/AdvReac Type Severity Reaction Status Date / Time No Known Allergies Allergy Verified 03/10/24 14:16 Vital Signs Vital Signs - 24 hr 03/10/24 14:10 03/10/24 16:32 03/10/24 16:32 Temperature 36.6 C 36.8 C Pulse Rate 97 74 Respiratory Rate 20 15 Blood Pressure 130/114 H 163/75 H Pulse Oximetry 99 99 100 Oxygen Delivery Room Air Room Air Exam Narrative: GENERAL: Well appearing, no acute distress. HEAD: Normocephalic, atraumatic. NECK: Supple. No adenopathy, no masses. RESPIRATORY: respirations nonlabored. , no rales, wheezing. CARDIOVASCULAR: Regular rate and rhythm without murmurs, . Peripheral pulses 2+ and equal bilaterally. ABDOMINAL: Soft, nontender, nondistended, no hepatosplenomegaly. Normoactive BS. MUSCULOSKELETAL: no Epigastric and no hypochondrial tenderness SKIN: Warm, dry, NEURO: Pleasantly confused H&P: Results Labs Labs: Short CBC 03/10/24 Range/Units 14:55 WBC 5.2 (4.5-10.0) K/mm3 Hgb 15.1 H (12.0-15.0) g/dL Hct 44.2 (37.0-47.0) % Plt Count 228 (150-375) k/mm3 [facility] 03/10/24 14:55 Sodium 129 L Potassium 4.7 Chloride 95 L Carbon Dioxide 25 BUN 23 H Creatinine 0.80 Glucose 722 H* Calcium 9.6 Liver Function 03/10/24 Range/Units 14:55 Total Bilirubin 0.6 (0.2-1.3) mg/dL AST 23 (14-36) U/L ALT 18 (6-35) U/L Alkaline Phosphatase 96 (38-126) U/L Albumin 4.8 (3.5-5.1) g/dL Urine 03/10/24 Range/Units 16:50 Urine Color Yellow (Yellow) Urine Appearance Clear (Clear) Urine pH 6.5 (5.0-9.0) Ur Specific Stevens 1.032 (1.001-1.035) Urine Protein Negative (Negative) mg/dL Urine Glucose (UA) 3+ H (Negative) mg/dL Assessment and Plan Assessment and plan (1) Hyperglycemia due to type 2 diabetes mellitus: Code(s): E11.65 - Type 2 diabetes mellitus with hyperglycemia Status: Acute (2) Dementia: Code(s): F03.90 - Unspecified dementia, unspecified severity, without behavioral disturbance, psychotic disturbance, mood disturbance, and anxiety Status: Acute (3) CAD (coronary artery disease), autologous vein bypass graft: Code(s): I25.810 - Atherosclerosis of coronary artery bypass graft(s) without angina pectoris Status: Acute (4) PAF (paroxysmal atrial fibrillation): Code(s): I48.0 - Paroxysmal atrial fibrillation Status: Acute Plan DM/hyperglycemia Optimize medications sliding scale insulin Routine glucose monitoring. Watch for Hypoglycemia. Watch for peripheral neuropathy Encouraged lower extremity and foot care BMI goal < 25 LDL goal <80 1800 ADA diet Lifestyle modification Start patient on normal saline HB A1c levels pending Antiplatelet therapy with aspirin Pseudohyponatremia noted to high blood sugars AFIB Optimize ARNI/ THANIA-inhibitor/Beta-blockers, statin and antiplatelet therapy History of coronary artery disease status CABG 20 years ago Monitor for RVR and SOB Keeping BMI less than 25 Advised low-salt low carb diet. Cardiology notes reviewed from previous admission Echo results EF 65% Metabolic encephalopathy Possibly secondary causes infection/dehydration/medication/electrolyte Close monitor of oxygen saturation. CT/brain negative Check the family regarding patient's baseline at home. Gentle hydration Gait Instability Service to Physical Therapy Service to Home Care (PT) Home exercise program Instruction in assistive device Reduction in Polypharmacy, Minimize the use of high-risk medications, and Sedatives, Diuretics, Antidepressants, Narcotics, Anti-hypertensives, and Anti-anxiety Patient is at risk. Counseled accordingly on risk reduction.as above History of dementia cognitive impairment will need further evaluation placement. history of major depression. History secondary polycythemia DVT prophylaxis. SCDs GI prophylaxis. Ppi All records reviewed Discussed plan of care with the nursing staff and with the patient in detail. Answered all questions and concerns from the patient. All labs have been reviewed. Code status updated dictation may have been done utilizing a voice recognition system. Attempts have been made to correct errors. However, there may be uncorrected grammatical, spelling, and recognition errors present. Quality If No VTE Prophylaxis Answer both mechanical and pharmacologic: Reason no pharmacologic proph: medical contraindication (Agitation high risk for fall) Hospitalist MIPS Advance Care Plan I have confirmed that the patient's Advanced Care Plan is present, code status is documented, or surrogate decision maker is listed in patient medical record.: Yes Medication Reconciliation I have utilized all available resources to obtain, update and review the patients current medications (includes all prescriptions, OTC, herbals, cannabis, and nutritional supplements).: Yes
[2024-03-10] MEDS: INSULIN ASPART (*BKC) 100 UNITS/ML 20 UNITS SUB-Q (18:02)
[2024-03-10 18:07] LABS: Glucose Point of Care 494 mg/dl (65-105)
[2024-03-10 18:45] LABS: Amphetamine Screen Urine Negative (Negative); Barbiturate Screen Urine Negative (Negative); Benzodiazepines Screen Urine Negative (Negative); Cannabinoid Screen Urine Negative (Negative); Cocaine Screen Urine Negative (Negative); Methadone Screen Urine Negative (Negative); Opiate Screen Urine Negative (Negative); Phencyclidine Screen Urine Negative (Negative)
[2024-03-10 18:50] LABS: Alanine Aminotransferase 16 U/L (6-35); Albumin Level 4.3 g/dL (3.5-5.1); Alkaline Phosphatase 83 U/L (38-126); Anion Gap 8 mmol/L (4-12); Aspartate Amino Transferase 21 U/L (14-36); Bilirubin,Total 0.4 mg/dL (0.2-1.3); Blood Urea Nitrogen 19 mg/dL (7-17); Carbon Dioxide 24 mmol/L (22-30); Chloride 101 mmol/L (98-107); Estimated CRCL calculation 56 ml/min; Estimated Glomerular Filt Rate > 60; Glucose 487 mg/dL (65-110); Potassium 4.1 mmol/L (3.4-5.0); Sodium 133 mmol/L (137-145)
[2024-03-10 21:10] LABS: Glucose Point of Care 342 mg/dl (65-105)
[2024-03-10] MEDS: SODIUM CHLORIDE 0.45% 1,000 ML 100 ML IV CONT (21:18)
--- NOTE | 2024-03-10 21:22 | ADMGEN ---
This patient, Ana M Junior, was admitted to [address] [place] [address] Room 305-02. Patient/family oriented to hospital policies and general routines including ID bracelet, bed and alarms, visiting hours, pain management, procedures, bathroom and other care routines, personal items, smoking policy, room service/diet, and visiting hours. Information on how to activate the Rapid Response Team has been discussed. Patient/Family are encouraged to report perceived risks to care and to ask questions if they do not understand what they are told or what they should do.
[2024-03-10] MEDS: INSULIN ASPART (*BKC) 100 UNITS/ML 6 UNITS SUB-Q (21:30)
--- NOTE | 2024-03-11 00:24 | PC.NURSE ---
PATIENT ARRIVED ON THE UNIT AT 20:58 TOINGHT
[2024-03-11 06:00] VITALS: BP 155/61; PULSE 65; RESP 22; TEMP 36.4; O2SAT 96
[2024-03-11 07:01] LABS: Basophils Percent Auto 0.7 % (0.2-1.2); Eosinophils Absolute Auto 0.2 K/mm3 (0-0.3); Eosinophils Percent Auto 2.8 % (0-4.4); Hematocrit 42.3 % (37.0-47.0); Hemoglobin 14.2 g/dL (12.0-15.0); Immature Granulocyte Absolute 0.01 K/mm3 (0.00-0.031); Immature Granulocyte Percent A 0.2 % (0-0.5); Lymphocytes Percent Auto 24.5 % (18.3-44.2); Mean Corpuscular HGB Conc 33.6 g/dl (32-36); Mean Corpuscular Hemoglobin 31.7 pg (26-34); Mean Corpuscular Volume 94.4 fl (80-100); Mean Platelet Volume 11.7 fl (7.4-10.4); Monocytes Absolute Auto 0.5 K/mm3 (0.1-0.6); Monocytes Percent Auto 8.4 % (2.6-8.5); Neutrophils Absolute Auto 3.6 K/mm3 (1.3-6.7); Neutrophils Percent Auto 63.4 % (45.5-73.1); Platelet Count Result 216 k/mm3 (150-375); Red Blood Count 4.48 M/mm3 (4.2-5.4); Red Cell Distribution Width 12.3 % (11.5-14.5); White Blood Count 5.7 K/mm3 (4.5-10.0)
[2024-03-11 07:17] LABS: Anion Gap 8 mmol/L (4-12); Blood Urea Nitrogen 13 mg/dL (7-17); Calcium 9.3 mg/dL (8.4-10.2); Carbon Dioxide 23 mmol/L (22-30); Chloride 101 mmol/L (98-107); Estimated CRCL calculation 66 ml/min; Estimated Glomerular Filt Rate > 60; Glucose 321 mg/dL (65-110); Potassium 3.9 mmol/L (3.4-5.0); Sodium 132 mmol/L (137-145)
[2024-03-11 08:00] VITALS: PULSE 65; RESP 22; O2SAT 96
[2024-03-11 08:00] LABS: Glucose Point of Care 323 mg/dl (65-105)
[2024-03-11] MEDS: ENOXAPARIN 40 MG/0.4 ML SYRINGE SUB-Q (08:13)
[2024-03-11] MEDS: INSULIN ASPART (*BKC) 100 UNITS/ML 6 UNITS SUB-Q (08:14)
[2024-03-11 09:34] VITALS: O2SAT 97
[2024-03-11 11:53] LABS: Glucose Point of Care 406 mg/dl (65-105)
[2024-03-11] MEDS: DIVALPROEX SODIUM DR 125 MG TABEC PO ×2 (12:00→16:41)
[2024-03-11] MEDS: PANTOPRAZOLE 40 MG TABLET PO (12:00)
[2024-03-11] MEDS: PARoxetine 10 MG TABLET 30 MG PO (12:00)
[2024-03-11] MEDS: MEMANTINE 5 MG TABLET PO ×2 (12:00→16:40)
[2024-03-11] MEDS: INSULIN GLARGINE (*BKC) 100 UNITS/ML 30 UNITS SUB-Q (12:00)
[2024-03-11] MEDS: ENALAPRIL MALEATE 10 MG TABLET 20 MG PO (13:09)
[2024-03-11 13:52] VITALS: BP 131/56; PULSE 72; RESP 20; TEMP 36.3; O2SAT 97
--- NOTE | 2024-03-11 14:00 | P.PNIM_ITS ---
Progress Note: A&P Assessment and Plan (1) Metabolic encephalopathy: Code(s): G93.41 - Metabolic encephalopathy Status: Acute Assessment and Plan: * Possibly secondary causes infection/dehydration/medication/electrolyte vs worsening dementia * Close monitor of oxygen saturation. * CT/brain negative * Check the family regarding patient's baseline at home. * Gentle hydration (2) Hyperglycemia due to type 2 diabetes mellitus: Code(s): E11.65 - Type 2 diabetes mellitus with hyperglycemia Status: Acute Assessment and Plan: Patient with worsening Dementia states she is unsure if she had been taking her medications, currently lives with her daughter per patient likely medication non-compliance is the cause of hypoglycemia * Optimize medications sliding scale insulin * Resumed long acting * ACHS * Watch for Hypoglycemia. * 1800 ADA * Start patient on normal saline * HB A1c levels pending * Antiplatelet therapy with aspirin * Pseudohyponatremia noted to high blood sugars (3) Dementia: Code(s): F03.90 - Unspecified dementia, unspecified severity, without behavioral disturbance, psychotic disturbance, mood disturbance, and anxiety Status: Acute Assessment and Plan: Patient lives at home with daughter who brought patient to a SNF for possible admission and she became aggressive and agitated was brought to the ED by daughter for worsening Dementia * resumed depakote * resumed Namenda * Will likely need memory care placement (4) CAD (coronary artery disease), autologous vein bypass graft: Code(s): I25.810 - Atherosclerosis of coronary artery bypass graft(s) without angina pectoris Status: Acute Assessment and Plan: * Resumed ASA, Xarelto * Previous CABG (5) PAF (paroxysmal atrial fibrillation): Code(s): I48.0 - Paroxysmal atrial fibrillation Status: Acute Assessment and Plan: * Optimize ARNI/ THANIA-inhibitor/Beta-blockers, * statin and antiplatelet therapy * CABG 20 years ago * Cardiology notes reviewed from previous admission * Last Echo results EF 65% * Resumed Xarelto and carvedilol Plan Code status: Full code per patient DVT prophylaxis: Xarelto Stress ulcer prophylaxis: Protonix 40 daily PT/OT notes: PT/OT pending Disposition: Patient was admitted to the medical unit for hyperglycemia and worsening dementia with altered mental status patient previously living at home with daughter however she can no longer care for her due to her worsening dementia patient was brought to the emergency department for further evaluation and will need likely paced went to a memory care facility. Time Spent With Patient Time with patient: 15 - 25 minutes Subjective Date/time seen: 03/11/24 14:00 Interval history: Patient is a 78-year-old female who was admitted for further evaluation and treatment altered mental status and hyperglycemia. 03/11/2024 Patient with flight if ideas and rambling of speech, Alert and oriented x t to 2 unsure where she is or where she lives just knows she lives with her daughter. Patient needs re-direction put is pleasant Patient denied any pain, CP, SOB, N/V, or difficulty urinating or defecating. Review of Systems Review of Systems: All systems reviewed & are unremarkable except as noted in HPI and below Exam Narrative: * GENERAL: Alert and oriented x 1 to 2 pleasant but rambling speech and needing re-direction . No acute distress. * EYES: EOMI. No scleral icterus. PERRLA. * HEENT: Moist mucous membranes. * LUNGS: Clear to auscultation bilaterally. No accessory muscle use. * CARDIOVASCULAR: Regular rate and rhythm. No murmur. No JVD. S1-S2 * ABDOMEN: Soft, non tenderness and non-distended. No palpable masses. * EXTREMITIES: No edema. Non-tender Strength 5/5 bilateral * SKIN: No rashes or lesions. Skin warm, dry. * NEUROLOGIC: No focal neurological deficits. CN II-XII grossly intact * PSYCHIATRIC: anxious mood and affect. Poor judgement and insight. Objective Data Vital Signs Vital Signs: Vital Signs - 24 hr 03/10/24 14:10 03/10/24 16:32 03/10/24 16:32 Temperature 97.9 F 98.2 F Pulse Rate 97 74 Respiratory Rate 20 15 Blood Pressure 130/114 H 163/75 H Pulse Oximetry 99 99 100 Oxygen Delivery Room Air Room Air 03/10/24 16:33 03/10/24 18:05 03/10/24 18:07 Temperature Pulse Rate 72 Respiratory Rate 13 Blood Pressure 196/149 H Pulse Oximetry 100 98 98 Oxygen Delivery 03/10/24 18:34 03/10/24 18:45 03/10/24 21:43 Temperature 98.1 F Pulse Rate 74 Respiratory Rate 20 Blood Pressure 129/78 Pulse Oximetry 98 93 95 Oxygen Delivery 03/10/24 23:39 03/11/24 06:00 03/11/24 08:00 Temperature 97.6 F Pulse Rate 65 65 Respiratory Rate 22 H 22 H Blood Pressure 155/61 H Pulse Oximetry 96 96 Oxygen Delivery Room Air Room Air 03/11/24 09:34 03/11/24 11:18 03/11/24 13:52 Temperature 97.4 F L Pulse Rate 72 Respiratory Rate 20 Blood Pressure 131/56 L Pulse Oximetry 97 97 Oxygen Delivery Room Air Room Air Intake/Output Intake/Output: Intake & Output 03/08/24 03/09/24 03/10/24 03/11/24 23:59 23:59 23:59 23:59 Intake Total 1999 1547 Balance 1999 1547 Meds/Results Medications: Active Medications Generic Name Dose Route Start Last Admin Trade Name Freq PRN Reason Stop Dose Admin Acetaminophen 650 mg 03/10/24 17:54 Acetaminophen 325 Mg Tablet PO Q4H PRN Mild Pain (1-3) or Fever Aspirin 81 mg 03/11/24 18:00 Aspirin 81 Mg Chewable Tablet PO QPM JANETTE Carvedilol 25 mg 03/11/24 17:00 Carvedilol 25 Mg Tablet PO BID JANETTE Dextrose 12.5 gm 03/11/24 10:27 Dextrose 50% 25 Gm/50 Ml Syringe IV PUSH PRN PRN Hypoglycemia Protocol Divalproex Sodium 125 mg 03/11/24 10:35 03/11/24 12:[address] 125 Mg Tabec PO 125 mg BID JANETTE Administration Enalapril Maleate 20 mg 03/11/24 10:35 03/11/24 13:09 Enalapril Maleate 10 Mg Tablet PO 20 mg DAILY JANETTE Administration Glucagon 1 mg 03/11/24 10:27 Glucagon For Inj 1 Mg Vial IM PRN PRN Hypoglycemia Protocol Glucose 15 gm 03/11/24 10:27 Glucose Oral Gel 15 Gm Of Glucse In 37.5 Gm Tube PO PRN PRN Hypoglycemia Protocol Sodium Chloride 1,000 mls @ 100 mls/hr 03/10/24 18:15 03/10/24 21:18 Sodium Chloride 0.45% IV CONT 100 mls/hr .Q10H JANETTE Administration Dextrose 1,000 mls @ 100 mls/hr 03/11/24 10:27 Dextrose 5% 1,000 Ml IVPB PRN PRN Hypoglycemia Protocol Insulin Aspart 2 - 5 units 03/11/24 12:00 Insulin Aspart (*Bkc) 100 Units/Ml SUB-Q TIDWM JANETTE Protocol Memantine 5 mg 03/11/24 10:35 03/11/24 12:00 Memantine 5 Mg Tablet PO 5 mg BID JANETTE Administration Coenzyme Q10 [Coq-10 1 each 03/11/24 10:33 ] 100 Mg Capsule XX 03/12/24 10:32 PRN PRN PROTOCOL Non-Formulary Medication 20 unit 03/11/24 17:00 Insulin Aspart U-100 [Novolog Flexpen U-100 Insulin] SUB-Q 04/10/24 16:59 TIDWM [facility] Non-Formulary Medication 30 unit 03/12/24 09:00 Insulin Degludec [Tresiba Flextouch U-200] SUB-Q 04/11/24 08:59 DAILY JANETTE Pantoprazole Sodium 40 mg 03/11/24 10:35 03/11/24 12:00 Pantoprazole 40 Mg Tablet PO 40 mg QAM JANETTE Administration Paroxetine HCl 30 mg 03/11/24 10:35 03/11/24 12:00 Paroxetine 10 Mg Tablet PO 30 mg DAILY JANETTE Administration Rivaroxaban 20 mg 03/11/24 18:00 Rivaroxaban 20 Mg Tablet PO QPM JANETTE Rosuvastatin Calcium 10 mg 03/11/24 18:00 Rosuvastatin 10 Mg Tablet PO QPM JANETTE Trazodone HCl 50 mg 03/11/24 21:00 Trazodone Hcl 50 Mg Tablet PO QHS [facility] Radiology Results: ITS Impressions Chest X-Ray 03/10/24 15:44 IMPRESSION: 1. Mild atelectasis in the lower lung zones. 2. Cardiomegaly. Head CT 03/10/24 15:55 IMPRESSION: No acute intracranial findings. Labs Labs: Laboratory Results - last 24 hr 03/10/24 03/10/24 03/10/24 14:55 16:02 16:36 WBC 5.2 RBC 4.70 Hgb 15.1 H Hct 44.2 MCV 94.0 MCH 32.1 MCHC 34.2 RDW 12.2 Plt Count 228 MPV 11.9 H Immature Gran % (Auto) 0.2 Neut % (Auto) 71.6 Lymph % (Auto) 17.7 L [place] % (Auto) 8.2 Eos % (Auto) 1.5 Baso % (Auto) 0.8 Lymph # (Auto) 0.93 [place] # (Auto) 0.4 Eos # (Auto) 0.1 Baso # (Auto) 0.0 Abs Immat Gran (auto) 0.01 Absolute Neuts (auto) 3.8 Absolute Nucleated RBC 0.000 Nucleated RBC % 0.0 PT 13.5 INR 1.0 APTT 26.5 VBG pH 7.359 VBG pCO2 44.5 VBG pO2 30.8 L VBG HCO3 24.5 O2 Delivery Device Room air O2 Liters/Min 0.0 FiO2 21 Sodium 129 L Potassium 4.7 Chloride 95 L Carbon Dioxide 25 Anion Gap 9 BUN 23 H Creatinine 0.80 Estim Creat Clear Calc 43 Estimated GFR > 60 Glucose 722 H* POC Capillary Glucose Hemoglobin A1c Calcium 9.6 Total Bilirubin 0.6 AST 23 ALT 18 Alkaline Phosphatase 96 Total Protein 8.0 Albumin 4.8 Beta-Hydroxybutyrate/Acetoacetate 0.92 H Urine Color Urine Appearance Urine pH Ur Specific [place] Urine Protein Urine Glucose (UA) Urine Ketones Ur Blood (Man) Urine Nitrate Urine Bilirubin Urine Urobilinogen Leukocyte Esterase Rfl Urine Opiates Screen Urine Methadone Screen Ur Barbiturates Screen Ur Phencyclidine Scrn Ur Amphetamine Screen U Benzodiazepines Scrn Urine Cocaine Screen U Cannabinoids Screen Influenza A (RT-PCR) Negative Influenza B (RT-PCR) Negative RSV (RT-PCR) Negative SARS-CoV-2 RNA (RT-PCR) Negative 03/10/24 03/10/24 03/10/24 16:50 18:00 18:35 WBC RBC Hgb Hct MCV MCH MCHC RDW Plt Count MPV Immature Gran % (Auto) Neut % (Auto) Lymph % (Auto) [place] % (Auto) Eos % (Auto) Baso % (Auto) Lymph # (Auto) [place] # (Auto) Eos # (Auto) Baso # (Auto) Abs Immat Gran (auto) Absolute Neuts (auto) Absolute Nucleated RBC Nucleated RBC % PT INR APTT VBG pH VBG pCO2 VBG pO2 VBG HCO3 O2 Delivery Device O2 Liters/Min FiO2 Sodium 133 L Potassium 4.1 Chloride 101 Carbon Dioxide 24 Anion Gap 8 BUN 19 H Creatinine 0.60 L Estim Creat Clear Calc 56 Estimated GFR > 60 Glucose 487 H POC Capillary Glucose 494 H Hemoglobin A1c Calcium 9.0 Total Bilirubin 0.4 AST 21 ALT 16 Alkaline Phosphatase 83 Total Protein 7.0 Albumin 4.3 Beta-Hydroxybutyrate/Acetoacetate Urine Color Yellow Urine Appearance Clear Urine pH 6.5 Ur Specific [place] 1.032 Urine Protein Negative Urine Glucose (UA) 3+ H Urine Ketones Trace H Ur Blood (Man) Negative Urine Nitrate Negative Urine Bilirubin Negative Urine Urobilinogen 0.2 Leukocyte Esterase Rfl Negative Urine Opiates Screen Negative Urine Methadone Screen Negative Ur Barbiturates Screen Negative Ur Phencyclidine Scrn Negative Ur Amphetamine Screen Negative U Benzodiazepines Scrn Negative Urine Cocaine Screen Negative U Cannabinoids Screen Negative Influenza A (RT-PCR) Influenza B (RT-PCR) RSV (RT-PCR) SARS-CoV-2 RNA (RT-PCR) 03/10/24 03/11/24 03/11/24 21:03 06:28 07:56 WBC 5.7 RBC 4.48 Hgb 14.2 Hct 42.3 MCV 94.4 MCH 31.7 MCHC 33.6 RDW 12.3 Plt Count 216 MPV 11.7 H Immature Gran % (Auto) 0.2 Neut % (Auto) 63.4 Lymph % (Auto) 24.5 [place] % (Auto) 8.4 Eos % (Auto) 2.8 Baso % (Auto) 0.7 Lymph # (Auto) 1.40 [place] # (Auto) 0.5 Eos # (Auto) 0.2 Baso # (Auto) 0.0 Abs Immat Gran (auto) 0.01 Absolute Neuts (auto) 3.6 Absolute Nucleated RBC 0.000 Nucleated RBC % 0.0 PT INR APTT VBG pH VBG pCO2 VBG pO2 VBG HCO3 O2 Delivery Device O2 Liters/Min FiO2 Sodium 132 L Potassium 3.9 Chloride 101 Carbon Dioxide 23 Anion Gap 8 BUN 13 D Creatinine 0.50 L Estim Creat Clear Calc 66 Estimated GFR > 60 Glucose 321 H POC Capillary Glucose 342 H 323 H Hemoglobin A1c 13.0 H Calcium 9.3 Total Bilirubin AST ALT Alkaline Phosphatase Total Protein Albumin Beta-Hydroxybutyrate/Acetoacetate Urine Color Urine Appearance Urine pH Ur Specific [place] Urine Protein Urine Glucose (UA) Urine Ketones Ur Blood (Man) Urine Nitrate Urine Bilirubin Urine Urobilinogen Leukocyte Esterase Rfl Urine Opiates Screen Urine Methadone Screen Ur Barbiturates Screen Ur Phencyclidine Scrn Ur Amphetamine Screen U Benzodiazepines Scrn Urine Cocaine Screen U Cannabinoids Screen Influenza A (RT-PCR) Influenza B (RT-PCR) RSV (RT-PCR) SARS-CoV-2 RNA (RT-PCR) 03/11/24 11:51 WBC RBC Hgb Hct MCV MCH MCHC RDW Plt Count MPV Immature Gran % (Auto) Neut % (Auto) Lymph % (Auto) [place] % (Auto) Eos % (Auto) Baso % (Auto) Lymph # (Auto) [place] # (Auto) Eos # (Auto) Baso # (Auto) Abs Immat Gran (auto) Absolute Neuts (auto) Absolute Nucleated RBC Nucleated RBC % PT INR APTT VBG pH VBG pCO2 VBG pO2 VBG HCO3 O2 Delivery Device O2 Liters/Min FiO2 Sodium Potassium Chloride Carbon Dioxide Anion Gap BUN Creatinine Estim Creat Clear Calc Estimated GFR Glucose POC Capillary Glucose 406 H Hemoglobin A1c Calcium Total Bilirubin AST ALT Alkaline Phosphatase Total Protein Albumin Beta-Hydroxybutyrate/Acetoacetate Urine Color Urine Appearance Urine pH Ur Specific [place] Urine Protein Urine Glucose (UA) Urine Ketones Ur Blood (Man) Urine Nitrate Urine Bilirubin Urine Urobilinogen Leukocyte Esterase Rfl Urine Opiates Screen Urine Methadone Screen Ur Barbiturates Screen Ur Phencyclidine Scrn Ur Amphetamine Screen U Benzodiazepines Scrn Urine Cocaine Screen U Cannabinoids Screen Influenza A (RT-PCR) Influenza B (RT-PCR) RSV (RT-PCR) SARS-CoV-2 RNA (RT-PCR) Quality VTE Prophylaxis VTE prophylaxis: pharmacologic ordered -Patient's previous records reviewed on admission -ER notes reviewed in detail on admission -discussed all findings and current treatment plan with patient/Family/POA -Consultations reviewed for recommendations -Patient's disposition for safe discharge discussed with spring encaser Dictation performed by [employer] direct speech recognition software, therefore annealing oven operator variants and typographical errors may occur. Hospitalist MIPS Advance Care Plan I have confirmed that the patient's Advanced Care Plan is present, code status is documented, or surrogate decision maker is listed in patient medical record.: Yes Medication Reconciliation I have utilized all available resources to obtain, update and review the patients current medications (includes all prescriptions, OTC, herbals, cannabis, and nutritional supplements).: Yes The patient is not eligible for med reconciliation; the patient is in a emergent medical situation where delaying treatment would jeopardize the patients health.: No
[2024-03-11] MEDS: INSULIN ASPART (*BKC) 100 UNITS/ML SUB-Q ×2 (14:10→16:52)
[2024-03-11 16:35] LABS: Glucose Point of Care 273 mg/dl (65-105)
[2024-03-11] MEDS: ASPIRIN 81 MG CHEWABLE TABLET PO (16:40)
[2024-03-11] MEDS: RIVAROXABAN 20 MG TABLET PO (16:41)
[2024-03-11] MEDS: ROSUVASTATIN 10 MG TABLET PO (16:41)
[2024-03-11] MEDS: INSULIN ASPART (*BKC) 100 UNITS/ML 20 UNITS SUB-Q (16:45)
[2024-03-11 20:19] VITALS: PULSE 64
[2024-03-11] MEDS: carvediloL 25 MG TABLET PO (20:19)
[2024-03-11] MEDS: traZODone HCL 50 MG TABLET PO (20:19)
[2024-03-11 20:41] LABS: Glucose Point of Care 99 mg/dl (65-105)
[2024-03-11 21:06] VITALS: BP 112/92; PULSE 60; RESP 16; TEMP 36.9; O2SAT 97
[2024-03-11] MEDS: SODIUM CHLORIDE 0.45% 1,000 ML 100 ML IV CONT (23:03)
[2024-03-12 04:49] LABS: Glucose Point of Care 290 mg/dl (65-105)
[2024-03-12 06:00] VITALS: BP 134/57; PULSE 62; RESP 12; TEMP 36.8; O2SAT 97
[2024-03-12 06:25] LABS: Hematocrit 39.1 % (37.0-47.0); Mean Corpuscular HGB Conc 33.2 g/dl (32-36); Mean Corpuscular Hemoglobin 31.6 pg (26-34); Mean Corpuscular Volume 94.9 fl (80-100); Mean Platelet Volume 11.2 fl (7.4-10.4); Platelet Count Result 184 k/mm3 (150-375); Red Blood Count 4.12 M/mm3 (4.2-5.4); Red Cell Distribution Width 12.4 % (11.5-14.5); White Blood Count 4.5 K/mm3 (4.5-10.0)
[2024-03-12 06:35] LABS: Alanine Aminotransferase 12 U/L (6-35); Albumin Level 3.4 g/dL (3.5-5.1); Alkaline Phosphatase 57 U/L (38-126); Anion Gap 2 mmol/L (4-12); Aspartate Amino Transferase 21 U/L (14-36); Bilirubin,Total 0.5 mg/dL (0.2-1.3); Blood Urea Nitrogen 19 mg/dL (7-17); Calcium 8.9 mg/dL (8.4-10.2); Carbon Dioxide 25 mmol/L (22-30); Chloride 103 mmol/L (98-107); Estimated CRCL calculation 66 ml/min; Estimated Glomerular Filt Rate > 60; Glucose 291 mg/dL (65-110); Potassium 4.3 mmol/L (3.4-5.0); Sodium 130 mmol/L (137-145)
[2024-03-12 08:00] VITALS: PULSE 62; RESP 12; O2SAT 97
[2024-03-12 08:21] LABS: Glucose Point of Care 310 mg/dl (65-105)
[2024-03-12] MEDS: PARoxetine 10 MG TABLET 30 MG PO (08:29)
[2024-03-12 08:30] VITALS: PULSE 62
[2024-03-12] MEDS: PANTOPRAZOLE 40 MG TABLET PO (08:30)
[2024-03-12] MEDS: MEMANTINE 5 MG TABLET PO ×2 (08:30→16:22)
[2024-03-12] MEDS: carvediloL 25 MG TABLET PO ×2 (08:30→23:51)
[2024-03-12] MEDS: DIVALPROEX SODIUM DR 125 MG TABEC PO ×2 (08:30→16:22)
[2024-03-12] MEDS: ENALAPRIL MALEATE 10 MG TABLET 20 MG PO (08:30)
[2024-03-12] MEDS: INSULIN GLARGINE (*BKC) 100 UNITS/ML 30 UNITS SUB-Q (08:31)
[2024-03-12] MEDS: INSULIN ASPART (*BKC) 100 UNITS/ML 20 UNITS SUB-Q ×3 (08:32→16:23)
[2024-03-12] MEDS: INSULIN ASPART (*BKC) 100 UNITS/ML SUB-Q ×2 (08:32→12:27)
--- NOTE | 2024-03-12 11:48 | P.PNIM_ITS ---
Progress Note: A&P Assessment and Plan (1) Metabolic encephalopathy: Code(s): G93.41 - Metabolic encephalopathy Status: Acute Assessment and Plan: * Possibly secondary causes infection/dehydration/medication/electrolyte vs worsening dementia * Close monitor of oxygen saturation. * CT/brain negative * Check the family regarding patient's baseline at home. * Gentle hydration (2) Hyperglycemia due to type 2 diabetes mellitus: Code(s): E11.65 - Type 2 diabetes mellitus with hyperglycemia Status: Acute Assessment and Plan: Patient with worsening Dementia states she is unsure if she had been taking her medications, currently lives with her daughter per patient likely medication non-compliance is the cause of hypoglycemia * Optimize medications sliding scale insulin * Resumed long acting * ACHS * Watch for Hypoglycemia. * 1800 ADA * Start patient on normal saline * HB A1c levels pending * Antiplatelet therapy with aspirin * Pseudohyponatremia noted to high blood sugars (3) Dementia: Code(s): F03.90 - Unspecified dementia, unspecified severity, without behavioral disturbance, psychotic disturbance, mood disturbance, and anxiety Status: Acute Assessment and Plan: Patient lives at home with daughter who brought patient to a SNF for possible admission and she became aggressive and agitated was brought to the ED by daughter for worsening Dementia * resumed depakote * resumed Namenda * Will likely need memory care placement (4) CAD (coronary artery disease), autologous vein bypass graft: Code(s): I25.810 - Atherosclerosis of coronary artery bypass graft(s) without angina pectoris Status: Acute Assessment and Plan: * Resumed ASA, Xarelto * Previous CABG (5) PAF (paroxysmal atrial fibrillation): Code(s): I48.0 - Paroxysmal atrial fibrillation Status: Acute Assessment and Plan: * Optimize ARNI/ THANIA-inhibitor/Beta-blockers, * statin and antiplatelet therapy * CABG 20 years ago * Cardiology notes reviewed from previous admission * Last Echo results EF 65% * Resumed Xarelto and carvedilol Plan Code status: Full code per patient DVT prophylaxis: Xarelto Stress ulcer prophylaxis: Protonix 40 daily PT/OT notes: PT/OT pending Disposition: Patient was admitted to the medical unit for hyperglycemia and worsening dementia with altered mental status patient previously living at home with daughter however she can no longer care for her due to her worsening dementia Plan for discharge to [facility] at discharge. Time Spent With Patient Time with patient: 15 - 25 minutes Subjective Date/time seen: 03/12/24 11:48 Interval history: Patient is a 78-year-old female who was admitted for further evaluation and treatment altered mental status and hyperglycemia. 03/12/2024: Assumed Care Patient pleasantly confused with no complaints A&O x 2 denies CP, SOB, N/V, Fever, Chills or difficulty urinating. Review of Systems Review of Systems: All systems reviewed & are unremarkable except as noted in HPI and below Exam Narrative: * GENERAL: Alert and oriented x 1 to 2 pleasant but rambling speech and needing re-direction . No acute distress. * EYES: EOMI. No scleral icterus. PERRLA. * HEENT: Moist mucous membranes. * LUNGS: Clear to auscultation bilaterally. No accessory muscle use. * CARDIOVASCULAR: Regular rate and rhythm. No murmur. No JVD. S1-S2 * ABDOMEN: Soft, non tenderness and non-distended. No palpable masses. * EXTREMITIES: No edema. Non-tender Strength 5/5 bilateral * SKIN: No rashes or lesions. Skin warm, dry. * NEUROLOGIC: No focal neurological deficits. CN II-XII grossly intact * PSYCHIATRIC: anxious mood and affect. Poor judgement and insight. Objective Data Vital Signs Vital Signs: Vital Signs - 24 hr 03/11/24 13:52 03/11/24 20:19 03/11/24 21:06 Temperature 97.4 F L 98.5 F Pulse Rate 72 64 60 Respiratory Rate 20 16 Blood Pressure 131/56 L 112/92 H Pulse Oximetry 97 97 Oxygen Delivery 03/11/24 20:00 03/12/24 06:00 03/12/24 08:30 Temperature 98.2 F Pulse Rate 62 62 Respiratory Rate 12 Blood Pressure 134/57 L Pulse Oximetry 97 Oxygen Delivery Room Air 03/12/24 08:00 Temperature Pulse Rate 62 Respiratory Rate 12 Blood Pressure Pulse Oximetry 97 Oxygen Delivery Room Air Intake/Output Intake/Output: Intake & Output 03/09/24 03/10/24 03/11/24 03/12/24 23:59 23:59 23:59 23:59 Intake Total 1999 2897 830 Balance 1999 2897 830 Meds/Results Medications: Active Medications Generic Name Dose Route Start Last Admin Trade Name Freq PRN Reason Stop Dose Admin Acetaminophen 650 mg 03/10/24 17:54 Acetaminophen 325 Mg Tablet PO Q4H PRN Mild Pain (1-3) or Fever Aspirin 81 mg 03/11/24 18:00 03/11/24 16:40 Aspirin 81 Mg Chewable Tablet PO 81 mg QPM JANETTE Administration Carvedilol 25 mg 03/11/24 21:00 03/12/24 08:30 Carvedilol 25 Mg Tablet PO 25 mg Q12HR JANETTE Administration Dextrose 12.5 gm 03/11/24 10:27 Dextrose 50% 25 Gm/50 Ml Syringe IV PUSH PRN PRN Hypoglycemia Protocol Divalproex Sodium 125 mg 03/11/24 10:35 03/12/24 08:[address] 125 Mg Tabec PO 125 mg BID JANETTE Administration Enalapril Maleate 20 mg 03/11/24 10:35 03/12/24 08:30 Enalapril Maleate 10 Mg Tablet PO 20 mg DAILY JANETTE Administration Glucagon 1 mg 03/11/24 10:27 Glucagon For Inj 1 Mg Vial IM PRN PRN Hypoglycemia Protocol Glucose 15 gm 03/11/24 10:27 Glucose Oral Gel 15 Gm Of Glucse In 37.5 Gm Tube PO PRN PRN Hypoglycemia Protocol Sodium Chloride 1,000 mls @ 100 mls/hr 03/10/24 18:15 03/11/24 23:03 Sodium Chloride 0.45% IV CONT 100 mls/hr .Q10H JANETTE Administration Dextrose 1,000 mls @ 100 mls/hr 03/11/24 10:27 Dextrose 5% 1,000 Ml IVPB PRN PRN Hypoglycemia Protocol Insulin Aspart 2 - 5 units 03/11/24 12:00 03/12/24 08:32 Insulin Aspart (*Bkc) 100 Units/Ml SUB-Q 4 units TIDWM JANETTE Administration Protocol Insulin Aspart 20 units 03/11/24 17:00 03/12/24 08:32 Insulin Aspart (*Bkc) 100 Units/Ml SUB-Q 20 units TIDWM JANETTE Administration Insulin Glargine 30 units 03/12/24 09:00 03/12/24 08:31 Insulin Glargine (*Bkc) 100 Units/Ml SUB-Q 30 units DAILY JANETTE Administration Memantine 5 mg 03/11/24 10:35 03/12/24 08:30 Memantine 5 Mg Tablet PO 5 mg BID JANETTE Administration Pantoprazole Sodium 40 mg 03/11/24 10:35 03/12/24 08:30 Pantoprazole 40 Mg Tablet PO 40 mg QAM JANETTE Administration Paroxetine HCl 30 mg 03/11/24 10:35 03/12/24 08:29 Paroxetine 10 Mg Tablet PO 30 mg DAILY JANETTE Administration Rivaroxaban 20 mg 03/11/24 18:00 03/11/24 16:41 Rivaroxaban 20 Mg Tablet PO 20 mg QPM JANETTE Administration Rosuvastatin Calcium 10 mg 03/11/24 18:00 03/11/24 16:41 Rosuvastatin 10 Mg Tablet PO 10 mg QPM JANETTE Administration Trazodone HCl 50 mg 03/11/24 21:00 03/11/24 20:19 Trazodone Hcl 50 Mg Tablet PO 50 mg QHS JANETTE Administration Radiology Results: ITS Impressions Chest X-Ray 03/10/24 15:44 IMPRESSION: 1. Mild atelectasis in the lower lung zones. 2. Cardiomegaly. Head CT 03/10/24 15:55 IMPRESSION: No acute intracranial findings. Labs Labs: Laboratory Results - last 24 hr 03/11/24 03/11/24 03/11/24 11:51 16:33 20:13 WBC RBC Hgb Hct MCV MCH MCHC RDW Plt Count MPV Sodium Potassium Chloride Carbon Dioxide Anion Gap BUN Creatinine Estim Creat Clear Calc Estimated GFR Glucose POC Capillary Glucose 406 H 273 H 99 Calcium Total Bilirubin AST ALT Alkaline Phosphatase Total Protein Albumin 03/12/24 03/12/24 03/12/24 04:41 06:18 08:15 WBC 4.5 RBC 4.12 L Hgb 13.0 Hct 39.1 MCV 94.9 MCH 31.6 MCHC 33.2 RDW 12.4 Plt Count 184 MPV 11.2 H Sodium 130 L Potassium 4.3 Chloride 103 Carbon Dioxide 25 Anion Gap 2 L BUN 19 H Creatinine 0.50 L Estim Creat Clear Calc 66 Estimated GFR > 60 Glucose 291 H POC Capillary Glucose 290 H 310 H Calcium 8.9 Total Bilirubin 0.5 AST 21 ALT 12 Alkaline Phosphatase 57 Total Protein 6.0 L Albumin 3.4 L Quality VTE Prophylaxis VTE prophylaxis: pharmacologic ordered -Patient's previous records reviewed on admission -ER notes reviewed in detail on admission -discussed all findings and current treatment plan with patient/Family/POA -Consultations reviewed for recommendations -Patient's disposition for safe discharge discussed with case finishing machine adjuster Dictation performed by [employer] direct speech recognition software, therefore document design specialist variants and typographical errors may occur. Hospitalist MIPS Advance Care Plan I have confirmed that the patient's Advanced Care Plan is present, code status is documented, or surrogate decision maker is listed in patient medical record.: Yes Medication Reconciliation I have utilized all available resources to obtain, update and review the patients current medications (includes all prescriptions, OTC, herbals, cannabis, and nutritional supplements).: Yes The patient is not eligible for med reconciliation; the patient is in a emergent medical situation where delaying treatment would jeopardize the patients health.: No
[2024-03-12 12:10] LABS: Glucose Point of Care 206 mg/dl (65-105)
[2024-03-12] MEDS: SODIUM CHLORIDE 0.45% 1,000 ML 100 ML IV CONT ×2 (12:28→17:40)
[2024-03-12 14:00] VITALS: BP 96/53; PULSE 89; RESP 16; TEMP 36.1; O2SAT 96
[2024-03-12 16:57] LABS: Glucose Point of Care 49 mg/dl (65-105)
[2024-03-12] MEDS: DEXTROSE 50% 25 GM/50 ML SYRINGE IV PUSH (17:00)
[2024-03-12 17:08] LABS: Glucose Point of Care 169 mg/dl (65-105)
[2024-03-12] MEDS: RIVAROXABAN 20 MG TABLET PO (17:39)
[2024-03-12] MEDS: ASPIRIN 81 MG CHEWABLE TABLET PO (17:39)
[2024-03-12] MEDS: ROSUVASTATIN 10 MG TABLET PO (17:39)
[2024-03-12 17:41] LABS: Glucose Point of Care 155 mg/dl (65-105)
[2024-03-12 21:19] VITALS: BP 101/56; PULSE 58; RESP 18; TEMP 36.6; O2SAT 96
[2024-03-12 22:11] LABS: Glucose Point of Care 158 mg/dl (65-105)
[2024-03-12 23:51] VITALS: PULSE 58
[2024-03-12] MEDS: traZODone HCL 50 MG TABLET PO (23:51)
[2024-03-13 02:00] VITALS: BP 132/42; PULSE 58; RESP 16; TEMP 36; O2SAT 100
[2024-03-13 05:24] VITALS: BP 148/65; PULSE 65; RESP 16; TEMP 36.3; O2SAT 97
[2024-03-13 07:12] LABS: Hematocrit 40.3 % (37.0-47.0); Mean Corpuscular HGB Conc 32.3 g/dl (32-36); Mean Corpuscular Hemoglobin 31.5 pg (26-34); Mean Corpuscular Volume 97.6 fl (80-100); Mean Platelet Volume 11.6 fl (7.4-10.4); Platelet Count Result 190 k/mm3 (150-375); Red Blood Count 4.13 M/mm3 (4.2-5.4); Red Cell Distribution Width 12.5 % (11.5-14.5); White Blood Count 5.9 K/mm3 (4.5-10.0)
[2024-03-13 07:26] LABS: Alanine Aminotransferase 12 U/L (6-35); Albumin Level 3.6 g/dL (3.5-5.1); Alkaline Phosphatase 58 U/L (38-126); Anion Gap 4 mmol/L (4-12); Aspartate Amino Transferase 18 U/L (14-36); Bilirubin,Total 0.5 mg/dL (0.2-1.3); Blood Urea Nitrogen 12 mg/dL (7-17); Calcium 9.3 mg/dL (8.4-10.2); Carbon Dioxide 26 mmol/L (22-30); Chloride 105 mmol/L (98-107); Estimated CRCL calculation 56 ml/min; Estimated Glomerular Filt Rate > 60; Glucose 205 mg/dL (65-110); Potassium 4.6 mmol/L (3.4-5.0); Sodium 135 mmol/L (137-145)
[2024-03-13 08:00] VITALS: O2SAT 97
[2024-03-13 08:09] LABS: Glucose Point of Care 202 mg/dl (65-105)
--- NOTE | 2024-03-13 08:37 | P.PNIM_ITS ---
Progress Note: A&P Assessment and Plan (1) Metabolic encephalopathy: Code(s): G93.41 - Metabolic encephalopathy Status: Acute Assessment and Plan: * Possibly secondary causes infection/dehydration/medication/electrolyte vs worsening dementia * Close monitor of oxygen saturation. * CT/brain negative * Check the family regarding patient's baseline at home. * Gentle hydration (2) Hyperglycemia due to type 2 diabetes mellitus: Code(s): E11.65 - Type 2 diabetes mellitus with hyperglycemia Status: Acute Assessment and Plan: Patient with worsening Dementia states she is unsure if she had been taking her medications, currently lives with her daughter per patient likely medication non-compliance is the cause of hypoglycemia * Optimize medications sliding scale insulin * Resumed long acting * ACHS * Watch for Hypoglycemia. * 1800 ADA * Start patient on normal saline * HB A1c levels pending * Antiplatelet therapy with aspirin * Pseudohyponatremia noted to high blood sugars 03/13/24: * episode of hypoglycemia RN reported she gave her lispro 20units without lunch tray patient dropped to 49 dextrose given and stabilized BS * Patient typically runs in 200's (3) Dementia: Code(s): F03.90 - Unspecified dementia, unspecified severity, without behavioral disturbance, psychotic disturbance, mood disturbance, and anxiety Status: Acute Assessment and Plan: Patient lives at home with daughter who brought patient to a SNF for possible admission and she became aggressive and agitated was brought to the ED by daughter for worsening Dementia * resumed depakote * resumed Namenda * Will likely need memory care placement (4) CAD (coronary artery disease), autologous vein bypass graft: Code(s): I25.810 - Atherosclerosis of coronary artery bypass graft(s) without angina pectoris Status: Acute Assessment and Plan: * Resumed ASA, Xarelto * Previous CABG (5) PAF (paroxysmal atrial fibrillation): Code(s): I48.0 - Paroxysmal atrial fibrillation Status: Acute Assessment and Plan: * Optimize ARNI/ THANIA-inhibitor/Beta-blockers, * statin and antiplatelet therapy * CABG 20 years ago * Cardiology notes reviewed from previous admission * Last Echo results EF 65% * Resumed Xarelto and carvedilol Plan Code status: Full code per patient DVT prophylaxis: Xarelto Stress ulcer prophylaxis: Protonix 40 daily PT/OT notes: PT/OT pending Disposition: Patient was admitted to the medical unit for hyperglycemia and worsening dementia with altered mental status patient previously living at home with daughter however she can no longer care for her due to her worsening dementia Plan for discharge to [facility] at discharge. Time Spent With Patient Time with patient: 15 - 25 minutes Subjective Date/time seen: 03/13/24 08:37 Interval history: Patient is a 78-year-old female who was admitted for further evaluation and treatment altered mental status and hyperglycemia. 03/13/2024: Assumed Care Patient alert but forgetful can be re-directed. She reports no complaints at this time but ripped IV fluids off. She denied CP. SOB, N/V, ABD or difficulty urinating or defecating. [facility]. Review of Systems Review of Systems: Forgetful with flight of ideas denies all All systems reviewed & are unremarkable except as noted in HPI and below ROS unobtainable: Yes unobtainable due to mental status Exam Narrative: * GENERAL: Alert and oriented x 1 to 2 pleasant but rambling speech and needing re-direction . No acute distress. * EYES: EOMI. No scleral icterus. PERRLA. * HEENT: Moist mucous membranes. * LUNGS: Clear to auscultation bilaterally. No accessory muscle use. * CARDIOVASCULAR: Regular rate and rhythm. No murmur. No JVD. S1-S2 * ABDOMEN: Soft, non tenderness and non-distended. No palpable masses. * EXTREMITIES: No edema. Non-tender Strength 5/5 bilateral * SKIN: No rashes or lesions. Skin warm, dry. * NEUROLOGIC: No focal neurological deficits. CN II-XII grossly intact * PSYCHIATRIC: anxious mood and affect. Poor judgement and insight. Objective Data Vital Signs Vital Signs: Vital Signs - 24 hr 03/12/24 14:00 03/12/24 21:19 03/12/24 23:51 Temperature 97.0 F L 98 F Pulse Rate 89 58 L 58 L Respiratory Rate 16 18 Blood Pressure 96/53 L 101/56 L Pulse Oximetry 96 96 Oxygen Delivery 03/13/24 05:24 03/13/24 08:00 Temperature 97.4 F L Pulse Rate 65 Respiratory Rate 16 Blood Pressure 148/65 H Pulse Oximetry 97 97 Oxygen Delivery Room Air Intake/Output Intake/Output: Intake & Output 03/10/24 03/11/24 03/12/24 03/13/24 23:59 23:59 23:59 23:59 Intake Total 1999 3695 5720 300 Balance 1999 6006 4189 300 Meds/Results Medications: Active Medications Generic Name Dose Route Start Last Admin Trade Name Freq PRN Reason Stop Dose Admin Acetaminophen 650 mg 03/10/24 17:54 Acetaminophen 325 Mg Tablet PO Q4H PRN Mild Pain (1-3) or Fever Aspirin 81 mg 03/11/24 18:00 03/12/24 17:39 Aspirin 81 Mg Chewable Tablet PO 81 mg QPM JANETTE Administration Carvedilol 25 mg 03/11/24 21:00 03/12/24 23:51 Carvedilol 25 Mg Tablet PO 25 mg Q12HR JANETTE Administration Dextrose 12.5 gm 03/11/24 10:27 03/12/24 17:00 Dextrose 50% 25 Gm/50 Ml Syringe IV PUSH 12.5 gm PRN PRN Administration Hypoglycemia Protocol Divalproex Sodium 125 mg 03/11/24 10:35 03/12/24 16:[address] 125 Mg Tabec PO 125 mg BID JANETTE Administration Enalapril Maleate 20 mg 03/11/24 10:35 03/12/24 08:30 Enalapril Maleate 10 Mg Tablet PO 20 mg DAILY JANETTE Administration Glucagon 1 mg 03/11/24 10:27 Glucagon For Inj 1 Mg Vial IM PRN PRN Hypoglycemia Protocol Glucose 15 gm 03/11/24 10:27 Glucose Oral Gel 15 Gm Of Glucse In 37.5 Gm Tube PO PRN PRN Hypoglycemia Protocol Sodium Chloride 1,000 mls @ 100 mls/hr 03/10/24 18:15 03/12/24 17:41 Sodium Chloride 0.45% IV CONT Not Given .Q10H JANETTE Dextrose 1,000 mls @ 100 mls/hr 03/11/24 10:27 Dextrose 5% 1,000 Ml IVPB PRN PRN Hypoglycemia Protocol Insulin Aspart 2 - 5 units 03/11/24 12:00 03/12/24 17:39 Insulin Aspart (*Bkc) 100 Units/Ml SUB-Q Not Given TIDWM [facility] Protocol Insulin Aspart 20 units 03/11/24 17:00 03/12/24 16:23 Insulin Aspart (*Bkc) 100 Units/Ml SUB-Q 20 units TIDWM JANETTE Administration Insulin Glargine 30 units 03/12/24 09:00 03/12/24 08:31 Insulin Glargine (*Bkc) 100 Units/Ml SUB-Q 30 units DAILY JANETTE Administration Memantine 5 mg 03/11/24 10:35 03/12/24 16:22 Memantine 5 Mg Tablet PO 5 mg BID JANETTE Administration Pantoprazole Sodium 40 mg 03/11/24 10:35 03/12/24 08:30 Pantoprazole 40 Mg Tablet PO 40 mg QAM JANETTE Administration Paroxetine HCl 30 mg 03/11/24 10:35 03/12/24 08:29 Paroxetine 10 Mg Tablet PO 30 mg DAILY JANETTE Administration Rivaroxaban 20 mg 03/11/24 18:00 03/12/24 17:39 Rivaroxaban 20 Mg Tablet PO 20 mg QPM JANETTE Administration Rosuvastatin Calcium 10 mg 03/11/24 18:00 03/12/24 17:39 Rosuvastatin 10 Mg Tablet PO 10 mg QPM JANETTE Administration Trazodone HCl 50 mg 03/11/24 21:00 03/12/24 23:51 Trazodone Hcl 50 Mg Tablet PO 50 mg QHS JANETTE Administration Radiology Results: ITS Impressions Chest X-Ray 03/10/24 15:44 IMPRESSION: 1. Mild atelectasis in the lower lung zones. 2. Cardiomegaly. Head CT 03/10/24 15:55 IMPRESSION: No acute intracranial findings. Labs Labs: Laboratory Results - last 24 hr 03/12/24 03/12/24 03/12/24 11:59 16:50 17:05 WBC RBC Hgb Hct MCV MCH MCHC RDW Plt Count MPV Sodium Potassium Chloride Carbon Dioxide Anion Gap BUN Creatinine Estim Creat Clear Calc Estimated GFR Glucose POC Capillary Glucose 206 H 49 L* 169 H Calcium Total Bilirubin AST ALT Alkaline Phosphatase Total Protein Albumin 03/12/24 03/12/24 03/13/24 17:38 21:22 06:59 WBC 5.9 RBC 4.13 L Hgb 13.0 Hct 40.3 MCV 97.6 MCH 31.5 MCHC 32.3 RDW 12.5 Plt Count 190 MPV 11.6 H Sodium 135 L Potassium 4.6 Chloride 105 Carbon Dioxide 26 Anion Gap 4 BUN 12 D Creatinine 0.60 L Estim Creat Clear Calc 56 Estimated GFR > 60 Glucose 205 H POC Capillary Glucose 155 H 158 H Calcium 9.3 Total Bilirubin 0.5 AST 18 ALT 12 Alkaline Phosphatase 58 Total Protein 6.0 L Albumin 3.6 03/13/24 08:07 WBC RBC Hgb Hct MCV MCH MCHC RDW Plt Count MPV Sodium Potassium Chloride Carbon Dioxide Anion Gap BUN Creatinine Estim Creat Clear Calc Estimated GFR Glucose POC Capillary Glucose 202 H Calcium Total Bilirubin AST ALT Alkaline Phosphatase Total Protein Albumin Quality VTE Prophylaxis VTE prophylaxis: pharmacologic ordered -Patient's previous records reviewed on admission -ER notes reviewed in detail on admission -discussed all findings and current treatment plan with patient/Family/POA -Consultations reviewed for recommendations -Patient's disposition for safe discharge discussed with casework supervisor Dictation performed by [employer] direct speech recognition software, therefore pain medicine physician variants and typographical errors may occur. Hospitalist MIPS Advance Care Plan I have confirmed that the patient's Advanced Care Plan is present, code status is documented, or surrogate decision maker is listed in patient medical record.: Yes Medication Reconciliation I have utilized all available resources to obtain, update and review the patients current medications (includes all prescriptions, OTC, herbals, cannabis, and nutritional supplements).: Yes The patient is not eligible for med reconciliation; the patient is in a emergent medical situation where delaying treatment would jeopardize the patients health.: No
[2024-03-13 08:54] VITALS: PULSE 76
[2024-03-13] MEDS: carvediloL 25 MG TABLET PO (08:54)
[2024-03-13] MEDS: PARoxetine 10 MG TABLET 30 MG PO (08:55)
[2024-03-13] MEDS: ENALAPRIL MALEATE 10 MG TABLET 20 MG PO (08:55)
[2024-03-13] MEDS: PANTOPRAZOLE 40 MG TABLET PO (08:55)
[2024-03-13] MEDS: DIVALPROEX SODIUM DR 125 MG TABEC PO ×2 (08:55→17:10)
[2024-03-13] MEDS: MEMANTINE 5 MG TABLET PO ×2 (08:55→17:10)
--- NOTE | 2024-03-13 10:10 | PC.NURSE ---
Dipti [employer] Admin notified of patient taking her iv out and stating she does not need this and patient refused to take insulin this am.
[2024-03-13] MEDS: INSULIN GLARGINE (*BKC) 100 UNITS/ML 30 UNITS SUB-Q (10:19)
[2024-03-13] MEDS: INSULIN ASPART (*BKC) 100 UNITS/ML 20 UNITS SUB-Q ×3 (10:20→18:02)
[2024-03-13] MEDS: INSULIN ASPART (*BKC) 100 UNITS/ML SUB-Q ×2 (10:20→12:43)
[2024-03-13 11:42] LABS: Glucose Point of Care 246 mg/dl (65-105)
[2024-03-13 16:37] LABS: Glucose Point of Care 119 mg/dl (65-105)
[2024-03-13] MEDS: ROSUVASTATIN 10 MG TABLET PO (17:10)
[2024-03-13] MEDS: RIVAROXABAN 20 MG TABLET PO (17:10)
[2024-03-13] MEDS: ASPIRIN 81 MG CHEWABLE TABLET PO (17:10)
[2024-03-13 20:30] VITALS: BP 122/56; PULSE 53; RESP 14; TEMP 36.8; O2SAT 94
[2024-03-13] MEDS: traZODone HCL 50 MG TABLET PO (20:30)
[2024-03-13 20:52] LABS: Glucose Point of Care 207 mg/dl (65-105)
[2024-03-14 06:00] VITALS: BP 152/74; PULSE 81; RESP 18; TEMP 36.8; O2SAT 97
[2024-03-14 07:12] LABS: Hematocrit 39.5 % (37.0-47.0); Hemoglobin 12.7 g/dL (12.0-15.0); Mean Corpuscular HGB Conc 32.2 g/dl (32-36); Mean Corpuscular Hemoglobin 31.3 pg (26-34); Mean Corpuscular Volume 97.3 fl (80-100); Platelet Count Result 183 k/mm3 (150-375); Red Blood Count 4.06 M/mm3 (4.2-5.4); Red Cell Distribution Width 12.3 % (11.5-14.5); White Blood Count 7.2 K/mm3 (4.5-10.0)
[2024-03-14 07:49] LABS: Alanine Aminotransferase 13 U/L (6-35); Albumin Level 3.4 g/dL (3.5-5.1); Alkaline Phosphatase 55 U/L (38-126); Anion Gap 3 mmol/L (4-12); Aspartate Amino Transferase 18 U/L (14-36); Bilirubin,Total 0.5 mg/dL (0.2-1.3); Blood Urea Nitrogen 11 mg/dL (7-17); Calcium 9.2 mg/dL (8.4-10.2); Carbon Dioxide 27 mmol/L (22-30); Chloride 106 mmol/L (98-107); Estimated CRCL calculation 66 ml/min; Estimated Glomerular Filt Rate > 60; Glucose 178 mg/dL (65-110); Potassium 4.3 mmol/L (3.4-5.0); Sodium 136 mmol/L (137-145)
[2024-03-14] MEDS: INSULIN ASPART (*BKC) 100 UNITS/ML 20 UNITS SUB-Q ×2 (08:45→13:24)
[2024-03-14] MEDS: PARoxetine 10 MG TABLET 30 MG PO (09:34)
[2024-03-14 09:35] VITALS: PULSE 80
[2024-03-14] MEDS: MEMANTINE 5 MG TABLET PO ×2 (09:35→17:11)
[2024-03-14] MEDS: PANTOPRAZOLE 40 MG TABLET PO (09:35)
[2024-03-14] MEDS: ENALAPRIL MALEATE 10 MG TABLET 20 MG PO (09:35)
[2024-03-14] MEDS: carvediloL 25 MG TABLET PO ×2 (09:35→20:42)
[2024-03-14] MEDS: DIVALPROEX SODIUM DR 125 MG TABEC PO ×2 (09:35→17:11)
[2024-03-14] MEDS: INSULIN GLARGINE (*BKC) 100 UNITS/ML 30 UNITS SUB-Q (09:37)
--- NOTE | 2024-03-14 12:30 | PC.NURSE ---
pt agitated and refusing for blood glucose to be checked and refusing to eat lunch, I will not administer scheduled insulin due to not knowing glucose level
[2024-03-14 12:52] LABS: Glucose Point of Care 146 mg/dl (65-105)
--- NOTE | 2024-03-14 13:12 | P.PNIM_ITS ---
Progress Note: A&P Assessment and Plan (1) Metabolic encephalopathy: Code(s): G93.41 - Metabolic encephalopathy Status: Acute Assessment and Plan: * Possibly secondary causes infection/dehydration/medication/electrolyte vs worsening dementia * Close monitor of oxygen saturation. * CT/brain negative * Check the family regarding patient's baseline at home. * Gentle hydration (2) Hyperglycemia due to type 2 diabetes mellitus: Code(s): E11.65 - Type 2 diabetes mellitus with hyperglycemia Status: Acute Assessment and Plan: Patient with worsening Dementia states she is unsure if she had been taking her medications, currently lives with her daughter per patient likely medication non-compliance is the cause of hypoglycemia * Optimize medications sliding scale insulin * Resumed long acting * ACHS * Watch for Hypoglycemia. * 1800 ADA * Start patient on normal saline * HB A1c levels pending * Antiplatelet therapy with aspirin * Pseudohyponatremia noted to high blood sugars 03/13/24: * episode of hypoglycemia RN reported she gave her lispro 20units without lunch tray patient dropped to 49 dextrose given and stabilized BS * Patient typically runs in 200's (3) Dementia: Code(s): F03.90 - Unspecified dementia, unspecified severity, without behavioral disturbance, psychotic disturbance, mood disturbance, and anxiety Status: Acute Assessment and Plan: Patient lives at home with daughter who brought patient to a SNF for possible admission and she became aggressive and agitated was brought to the ED by daughter for worsening Dementia * resumed depakote * resumed Namenda * Will likely need memory care placement (4) CAD (coronary artery disease), autologous vein bypass graft: Code(s): I25.810 - Atherosclerosis of coronary artery bypass graft(s) without angina pectoris Status: Acute Assessment and Plan: * Resumed ASA, Xarelto * Previous CABG (5) PAF (paroxysmal atrial fibrillation): Code(s): I48.0 - Paroxysmal atrial fibrillation Status: Acute Assessment and Plan: * Optimize ARNI/ THANIA-inhibitor/Beta-blockers, * statin and antiplatelet therapy * CABG 20 years ago * Cardiology notes reviewed from previous admission * Last Echo results EF 65% * Resumed Xarelto and carvedilol Plan Code status: Full code per patient DVT prophylaxis: Xarelto Stress ulcer prophylaxis: Protonix 40 daily PT/OT notes: PT/OT pending Disposition: Patient was admitted to the medical unit for hyperglycemia and worsening dementia with altered mental status patient previously living at home with daughter however she can no longer care for her due to her worsening dementia Plan for discharge to [facility] at discharge. Time Spent With Patient Time with patient: 15 - 25 minutes Subjective Date/time seen: 03/14/24 13:12 Interval history: Patient is a 78-year-old female who was admitted for further evaluation and treatment altered mental status and hyperglycemia. 03/14/2024: Patient in bed pleasantly confused, BG well controlled today. Patient with no complaints just want to go home waiting on assisted living acceptance. Review of Systems Review of Systems: Forgetful with flight of ideas denies all All systems reviewed & are unremarkable except as noted in HPI and below ROS unobtainable: Yes unobtainable due to mental status Exam Narrative: * GENERAL: Alert and oriented x 1 to 2 pleasant but rambling speech and needing re-direction . No acute distress. * EYES: EOMI. No scleral icterus. PERRLA. * HEENT: Moist mucous membranes. * LUNGS: Clear to auscultation bilaterally. No accessory muscle use. * CARDIOVASCULAR: Regular rate and rhythm. No murmur. No JVD. S1-S2 * ABDOMEN: Soft, non tenderness and non-distended. No palpable masses. * EXTREMITIES: No edema. Non-tender Strength 5/5 bilateral * SKIN: No rashes or lesions. Skin warm, dry. * NEUROLOGIC: No focal neurological deficits. CN II-XII grossly intact * PSYCHIATRIC: anxious mood and affect. Poor judgement and insight. Objective Data Vital Signs Vital Signs: Vital Signs - 24 hr 03/13/24 20:00 03/13/24 20:30 03/13/24 20:30 Temperature 98.2 F Pulse Rate 53 L 53 L Respiratory Rate 14 Blood Pressure 122/56 L Pulse Oximetry 94 Oxygen Delivery Room Air 03/14/24 06:00 03/14/24 08:30 03/14/24 09:35 Temperature 98.2 F Pulse Rate 81 80 Respiratory Rate 18 Blood Pressure 152/74 H Pulse Oximetry 97 Oxygen Delivery Room Air Intake/Output Intake/Output: Intake & Output 03/11/24 03/12/24 03/13/24 03/14/24 23:59 23:59 23:59 23:59 Intake Total 2897 3430 1020 150 Balance 2897 3430 1020 150 Meds/Results Medications: Active Medications Generic Name Dose Route Start Last Admin Trade Name Freq PRN Reason Stop Dose Admin Acetaminophen 650 mg 03/10/24 17:54 Acetaminophen 325 Mg Tablet PO Q4H PRN Mild Pain (1-3) or Fever Aspirin 81 mg 03/11/24 18:00 03/13/24 17:10 Aspirin 81 Mg Chewable Tablet PO 81 mg QPM JANETTE Administration Carvedilol 25 mg 03/11/24 21:00 03/14/24 09:35 Carvedilol 25 Mg Tablet PO 25 mg Q12HR JANETTE Administration Dextrose 12.5 gm 03/11/24 10:27 03/12/24 17:00 Dextrose 50% 25 Gm/50 Ml Syringe IV PUSH 12.5 gm PRN PRN Administration Hypoglycemia Protocol Divalproex Sodium 125 mg 03/11/24 10:35 03/14/24 09:[address] 125 Mg Tabec PO 125 mg BID JANETTE Administration Enalapril Maleate 20 mg 03/11/24 10:35 03/14/24 09:35 Enalapril Maleate 10 Mg Tablet PO 20 mg DAILY JANETTE Administration Glucagon 1 mg 03/11/24 10:27 Glucagon For Inj 1 Mg Vial IM PRN PRN Hypoglycemia Protocol Glucose 15 gm 03/11/24 10:27 Glucose Oral Gel 15 Gm Of Glucse In 37.5 Gm Tube PO PRN PRN Hypoglycemia Protocol Dextrose 1,000 mls @ 100 mls/hr 03/11/24 10:27 Dextrose 5% 1,000 Ml IVPB PRN PRN Hypoglycemia Protocol Insulin Aspart 2 - 5 units 03/11/24 12:00 03/14/24 12:33 Insulin Aspart (*Bkc) 100 Units/Ml SUB-Q Not Given TIDWM JANETTE Protocol Insulin Aspart 20 units 03/11/24 17:00 03/14/24 12:38 Insulin Aspart (*Bkc) 100 Units/Ml SUB-Q Not Given TIDWM JANETTE Insulin Glargine 30 units 03/12/24 09:00 03/14/24 09:37 Insulin Glargine (*Bkc) 100 Units/Ml SUB-Q 30 units DAILY JANETTE Administration Memantine 5 mg 03/11/24 10:35 03/14/24 09:35 Memantine 5 Mg Tablet PO 5 mg BID JANETTE Administration Pantoprazole Sodium 40 mg 03/11/24 10:35 03/14/24 09:35 Pantoprazole 40 Mg Tablet PO 40 mg QAM JANETTE Administration Paroxetine HCl 30 mg 03/11/24 10:35 03/14/24 09:34 Paroxetine 10 Mg Tablet PO 30 mg DAILY JANETTE Administration Rivaroxaban 20 mg 03/11/24 18:00 03/13/24 17:10 Rivaroxaban 20 Mg Tablet PO 20 mg QPM JANETTE Administration Rosuvastatin Calcium 10 mg 03/11/24 18:00 03/13/24 17:10 Rosuvastatin 10 Mg Tablet PO 10 mg QPM JANETTE Administration Trazodone HCl 50 mg 03/11/24 21:00 03/13/24 20:30 Trazodone Hcl 50 Mg Tablet PO 50 mg QHS JANETTE Administration Radiology Results: ITS Impressions Chest X-Ray 03/10/24 15:44 IMPRESSION: 1. Mild atelectasis in the lower lung zones. 2. Cardiomegaly. Head CT 03/10/24 15:55 IMPRESSION: No acute intracranial findings. Labs Labs: Laboratory Results - last 24 hr 03/13/24 03/13/24 03/14/24 16:32 20:12 06:30 WBC 7.2 RBC 4.06 L Hgb 12.7 Hct 39.5 MCV 97.3 MCH 31.3 MCHC 32.2 RDW 12.3 Plt Count 183 MPV 12.0 H Sodium 136 L Potassium 4.3 Chloride 106 Carbon Dioxide 27 Anion Gap 3 L BUN 11 Creatinine 0.50 L Estim Creat Clear Calc 66 Estimated GFR > 60 Glucose 178 H POC Capillary Glucose 119 H 207 H Calcium 9.2 Total Bilirubin 0.5 AST 18 ALT 13 Alkaline Phosphatase 55 Total Protein 6.0 L Albumin 3.4 L 03/14/24 12:49 WBC RBC Hgb Hct MCV MCH MCHC RDW Plt Count MPV Sodium Potassium Chloride Carbon Dioxide Anion Gap BUN Creatinine Estim Creat Clear Calc Estimated GFR Glucose POC Capillary Glucose 146 H Calcium Total Bilirubin AST ALT Alkaline Phosphatase Total Protein Albumin Quality VTE Prophylaxis VTE prophylaxis: pharmacologic ordered -Patient's previous records reviewed on admission -ER notes reviewed in detail on admission -discussed all findings and current treatment plan with patient/Family/POA -Consultations reviewed for recommendations -Patient's disposition for safe discharge discussed with pillowcase maker Dictation performed by Ruth [employer] direct speech recognition software, therefore director manufacturing engineering variants and typographical errors may occur. Hospitalist MIPS Advance Care Plan I have confirmed that the patient's Advanced Care Plan is present, code status is documented, or surrogate decision maker is listed in patient medical record.: Yes Medication Reconciliation I have utilized all available resources to obtain, update and review the patients current medications (includes all prescriptions, OTC, herbals, cannabis, and nutritional supplements).: Yes The patient is not eligible for med reconciliation; the patient is in a emergent medical situation where delaying treatment would jeopardize the patients health.: No
[2024-03-14 14:00] VITALS: BP 126/72; PULSE 81; RESP 19; TEMP 37.2; O2SAT 100
[2024-03-14 16:52] LABS: Glucose Point of Care 77 mg/dl (65-105)
[2024-03-14] MEDS: RIVAROXABAN 20 MG TABLET PO (17:11)
[2024-03-14] MEDS: ASPIRIN 81 MG CHEWABLE TABLET PO (17:11)
[2024-03-14] MEDS: ACETAMINOPHEN 325 MG TABLET 650 MG PO (17:11)
[2024-03-14] MEDS: ROSUVASTATIN 10 MG TABLET PO (17:11)
[2024-03-14 20:42] VITALS: PULSE 55
[2024-03-14] MEDS: traZODone HCL 50 MG TABLET PO (20:42)
[2024-03-14 20:58] LABS: Glucose Point of Care 194 mg/dl (65-105)
[2024-03-14 21:31] VITALS: BP 112/51; PULSE 53; RESP 20; TEMP 36.6; O2SAT 92
[2024-03-15 05:42] VITALS: BP 141/62; PULSE 60; RESP 20; TEMP 36.4; O2SAT 95
[2024-03-15 06:59] LABS: Hematocrit 38.3 % (37.0-47.0); Hemoglobin 12.3 g/dL (12.0-15.0); Mean Corpuscular HGB Conc 32.1 g/dl (32-36); Mean Corpuscular Hemoglobin 31.5 pg (26-34); Platelet Count Result 165 k/mm3 (150-375); Red Blood Count 3.91 M/mm3 (4.2-5.4); Red Cell Distribution Width 12.4 % (11.5-14.5); White Blood Count 4.6 K/mm3 (4.5-10.0)
[2024-03-15 07:45] LABS: Alanine Aminotransferase 11 U/L (6-35); Albumin Level 3.4 g/dL (3.5-5.1); Alkaline Phosphatase 55 U/L (38-126); Anion Gap 3 mmol/L (4-12); Aspartate Amino Transferase 18 U/L (14-36); Bilirubin,Total 0.4 mg/dL (0.2-1.3); Blood Urea Nitrogen 17 mg/dL (7-17); Calcium 9.1 mg/dL (8.4-10.2); Carbon Dioxide 28 mmol/L (22-30); Chloride 102 mmol/L (98-107); Estimated CRCL calculation 56 ml/min; Estimated Glomerular Filt Rate > 60; Glucose 221 mg/dL (65-110); Potassium 4.1 mmol/L (3.4-5.0); Sodium 133 mmol/L (137-145)
[2024-03-15 08:35] LABS: Glucose Point of Care 235 mg/dl (65-105)
[2024-03-15] MEDS: INSULIN ASPART (*BKC) 100 UNITS/ML SUB-Q ×2 (08:41→11:34)
[2024-03-15] MEDS: INSULIN GLARGINE (*BKC) 100 UNITS/ML 30 UNITS SUB-Q (08:42)
[2024-03-15] MEDS: INSULIN ASPART (*BKC) 100 UNITS/ML 20 UNITS SUB-Q ×2 (08:42→11:34)
[2024-03-15 08:59] VITALS: PULSE 51
[2024-03-15] MEDS: ENALAPRIL MALEATE 10 MG TABLET 20 MG PO (08:59)
[2024-03-15] MEDS: MEMANTINE 5 MG TABLET PO (08:59)
[2024-03-15] MEDS: carvediloL 25 MG TABLET PO (08:59)
[2024-03-15] MEDS: PARoxetine 10 MG TABLET 30 MG PO (08:59)
[2024-03-15] MEDS: PANTOPRAZOLE 40 MG TABLET PO (09:00)
[2024-03-15] MEDS: DIVALPROEX SODIUM DR 125 MG TABEC PO (09:00)
--- NOTE | 2024-03-15 09:21 | P.DS_ITS ---
DS: Admitting Diagnosis Discharge Date 12/15/23 Admitting Diagnosis Hyperglycemia due to type 2 diabetes mellitus Dementia Coronary artery disease Paroxysmal atrial fibrillation DS: Summary Hospital Course Reason for hospitalization: Hyperglycemia due to type 2 diabetes mellitus Dementia Coronary artery disease Paroxysmal atrial fibrillation Hospital Course: This is a 78-year-old female who presented to the hospital on 03/10/2024 for evaluation of confusion. She was found wandering and agitated at the long-term. workup in the hospital included a chest x-ray which showed cardiomegaly, mild atelectasis in the lower lung zones. She also had a head CT which was negative. Initial labs showed a normal white blood cell count of 5.2, ABG was normal, sodium 129, creatinine 0.8, blood sugar was 722 on admission beta hydroxybutyrate was 0.92. UA was obtained which showed 3+ urine glucose, trace ketones, otherwise negative. Toxicology screening was negative. Respiratory panel was negative for influenza a and B, RSV, COVID. Hemoglobin A1c was 13.0. EKG shown sinus rhythm with a rate of 73, right bundle branch block, QTC 522. She was resumed on sliding scale insulin and long-acting insulin with improvement in her blood sugars. Her Namenda and Depakote were renewed. Case management Worked on getting placement at a memory care facility and she was placed at [facility] memory care. She was discharged in stable condition. Final diagnosis: Advancing dementia, metabolic encephalopathy Status at Discharge Cognitive/behavioral status at discharge: Confused at baseline Functional status at discharge: independent ambulation Overall status at discharge: patient is progressing back to baseline Time Spent with Patient Time attestation: Total time spent providing and/or coordinating discharge services: Time spent: Greater than 30 minutes Exam Narrative: General: In no acute distress, well nourished Head: atraumatic, no encephalopathy Eyes: EOMI, PERRLA, sclera clear ENT: moist mucous membranes, nasal passages clear Neck: supple, no JVD, no adenopathy, trachea midline Cardiac: Normal S1 and S2. No murmur, gallops or friction rubs, peripheral pulses intact. Respiratory: Lungs clear to auscultation, no adventitious lung sounds Gastrointestinal: soft, non-distended, non-tender, normoactive bowel sounds. : voiding without difficulty. Extremities: moves all extremities well, no edema, good ROM, strength 5/5 Skin: clean, dry, intact. No wounds or lesions. Neuro: Alert and oriented x4, cranial nerves intact, no neuro deficits. Psych: normal mood, normal affect, interactive DS: Data Data Completed and Pending Completed studies during hospitalization: Head CT Chest x-ray Pending studies at discharge: None Labs on day of discharge: Labs from last 24 hours 03/15/24 03/15/24 03/14/24 08:14 06:15 20:45 WBC 4.6 RBC 3.91 L Hgb 12.3 Hct 38.3 MCV 98.0 MCH 31.5 MCHC 32.1 RDW 12.4 Plt Count 165 MPV 12.0 H Sodium 133 L Potassium 4.1 Chloride 102 Carbon Dioxide 28 Anion Gap 3 L BUN 17 Creatinine 0.60 L Estim Creat Clear Calc 56 Estimated GFR > 60 Glucose 221 H POC Capillary Glucose 235 H 194 H Calcium 9.1 Total Bilirubin 0.4 AST 18 ALT 11 Alkaline Phosphatase 55 Total Protein 6.0 L Albumin 3.4 L 03/14/24 03/14/24 16:47 12:49 WBC RBC Hgb Hct MCV MCH MCHC RDW Plt Count MPV Sodium Potassium Chloride Carbon Dioxide Anion Gap BUN Creatinine Estim Creat Clear Calc Estimated GFR Glucose POC Capillary Glucose 77 146 H Calcium Total Bilirubin AST ALT Alkaline Phosphatase Total Protein Albumin Procedures/Treatments: None Discharge Plan Discharge Attending physician on discharge: Erick Ordonez Consulting providers: Kelsey Catalan; Efe Marks; Pravin Cunha; Chi Coronado V. Discharging Clinician: Ladi Schmid Anticipated Discharge Date/Time: 03/15/24 09:15 Patient Disposition: NH Long Term/Asst Living Activity: as tolerated Diet: as tolerated Discharge Instructions: * Follow-up with primary care physician in 1 week Patient Instructions: Antibiotic Form, Rivaroxaban (By mouth) Patient Language: Ukrainian Stand Alone Forms: General Discharge Information, Long-Term Discharge Follow-up/Referrals: Ernestina Luevano MD [Primary Care Provider] - 1 Week Discharge Medications: Continued coenzyme Q10 [CoQ-10] 100 mg Capsule 200 mg PO DAILY (DME) FreeStyle Haritha 3 [place] Misc See Rx Instructions .Route Qty: 2 1RF Rx Instructions: As directed (DME) FreeStyle Haritha 3 Sensor Device See Rx Instructions .Route Qty: 4 4RF Rx Instructions: As directed insulin degludec [Tresiba FlexTouch U-200] 200 unit/mL (3 mL) insulin pen 30 unit SUBCUT DAILY Qty: 9 0RF rosuvastatin 10 mg tablet 10 mg PO QPM Qty: 90 3RF paroxetine HCl 20 mg tablet 30 mg PO DAILY Qty: 135 2RF memantine 5 mg tablet 5 mg PO BID Qty: 60 2RF trazodone 50 mg tablet 50 mg PO QHS Qty: 90 3RF aspirin 81 mg tablet,chewable 81 mg PO QPM Qty: 90 2RF enalapril maleate 10 mg tablet 20 mg PO DAILY Qty: 90 4RF pantoprazole [Protonix] 40 mg tablet,delayed release (DR/EC) 40 mg PO QAM 28 Days Qty: 10 0RF rivaroxaban 20 mg Tablet 20 mg PO QPM carvedilol 25 mg tablet 25 mg PO BID insulin aspart U-100 [Novolog FlexPen U-100 Insulin] 100 unit/mL (3 mL) insulin pen 20 unit subcut TIDWM Qty: 15 0RF Rx Instructions: 20 unit subcutaneously TID WITH MEALS divalproex [Depakote] 125 mg tablet,delayed release (DR/EC) 125 mg PO BID Qty: 60 3RF Date of admission: 03/12/24 14:16 Primary Care Provider: Ernestina Luevano Admitting Provider: Taz Rios Attending physician on admission: Ladi Schmdi Condition: Improved Quality VTE Prophylaxis VTE prophylaxis: mechanical ordered Hospitalist MIPS Heart Failure (Exclusion) Patient has history of Heart Transplant or Left Ventricular Assistive Device?: No IF YES, STOP HERE Heart Failure (Qualifier) Patient has current or prior documentation of LVEF less than or equal to 40%, or mod/servere depressed LVSF?: No IF NO, STOP HERE
[2024-03-15 11:26] LABS: Glucose Point of Care 204 mg/dl (65-105)
[2024-03-15 13:50] VITALS: BP 112/52; PULSE 58; RESP 14; TEMP 36.6; O2SAT 98
== END 2024-03-15 14:25 | DRG 71 ==
LOC: ANHED 15:32 → ANH3MEDSUR 19:56
PROVIDERS: Nurse Practitioner Family; Student in an Organized Health Care Education/Training Program; Admitting Provider Internal Medicine; Emergency Provider Emergency Medicine; PCP Family Medicine; Visit Provider Nurse Practitioner Acute Care
DX: G93.41 Metabolic encephalopathy (principal); I25.810 Atherosclerosis of coronary artery bypass graft(s) without angina pectoris; F03.90 Unspecified dementia, unspecified severity, without behavioral disturbance, psychotic disturbance, mood disturbance, and anxiety; D75.1 Secondary polycythemia; E11.65 Type 2 diabetes mellitus with hyperglycemia; E11.319 Type 2 diabetes mellitus with unspecified diabetic retinopathy without macular edema; E11.40 Type 2 diabetes mellitus with diabetic neuropathy, unspecified; E78.5 Hyperlipidemia, unspecified; F32.A Depression, unspecified; I11.0 Hypertensive heart disease with heart failure; I50.9 Heart failure, unspecified; I25.5 Ischemic cardiomyopathy; I48.0 Paroxysmal atrial fibrillation; K21.9 Gastro-esophageal reflux disease without esophagitis; R26.9 Unspecified abnormalities of gait and mobility; Z79.01 Long term (current) use of anticoagulants; Z79.4 Long term (current) use of insulin; Z79.82 Long term (current) use of aspirin; Z20.822 Contact with and (suspected) exposure to COVID-19; Z86.73 Personal history of transient ischemic attack (TIA), and cerebral infarction without residual deficits; Z95.1 Presence of aortocoronary bypass graft
CPT/HCPCS: 36415; 70450; 71045; 80048; 80053; 80307; 81003; 82010; 82803; 82948; 83036; 85025; 85027; 85610; 85730; 87637; 93005; 96360; 96361; 96372; 97161; 97165; 99285; A9270; G0378; J1650; J1815; J7030

== ENCOUNTER 2024-03-21 19:25 | Emergency (ER) | payer MEDICARE, OTHER, SELFPAY ==
--- NOTE | ~2024-03-21 | CT_ITS ---
EXAMINATION: CT abdomen pelvis w con DATE: 03/21/2024 21:24 INDICATION: Abdominal pain. Nausea, vomiting, and diarrhea. TECHNIQUE: Computed tomography (CT) of the abdomen and pelvis was performed with 100 mL Omnipaque 350 intravenous contrast. Automated exposure control and iterative reconstruction technique were employe d. The dose-length product was 564.34 mGy-cm. COMPARISON: CT abdomen and pelvis 02/17/2024 FINDINGS: The visualized portions of the lung bases demonstrate mild atelectasis. No pleural effusion . The heart size is normal. There are coronary artery calcifications. No pericardial effusion. Median sternotomy wires are noted. There is a small sliding hiatal hernia. The liver is normal. There are c hanges of cholecystectomy. The spleen, pancreas, adrenal glands, and right kidney are normal. There i s a 13 mm cyst in left kidney. There are no dilated loops of bowel. The appendix is normal. There are no pathologically enlarged lymph nodes. There is a small volume of pelvic ascites. There is an umbi lical hernia containing nonobstructed small bowel. There are changes of posterior fusion procedure at L5-S1 with pedicle screws. There is severe thoracic and lumbar spondylosis. IMPRESSION: 1. Small sliding hiatal hernia. 2. Umbilical hernia containing nonobstructed small bowel. 3. Small volume of pelvic ascites. Reviewed, dictated and finalized at location A. R HELPER
[2024-03-21 19:23] VITALS: BP 153/55; PULSE 61; RESP 14; TEMP 36.6; O2SAT 100
--- NOTE | 2024-03-21 19:58 | ED_ITS ---
HPI - Nausea/Vomiting/Diarrhea General Chief complaint: Nausea/Vomiting/Diarrhea Stated complaint: N/V/D Time Seen by Provider: 03/21/24 19:47 Source: patient Mode of arrival: EMS Limitations: no limitations History of Present Illness HPI Narrative: This is a 78-year-old female who presents to the ED via EMS from [facility] for chief complaint of sudden-onset abdominal cramping, N/V/D beginning around 3 hours ago. Patient reports that this came out of no where. Reports that the cramping is diffuse and intermittent. Denies GI bleeding symptoms. Denies syncope, chest pain, shortness of breath, cough, fevers. Related Data Home Medications ?Medication ?Instructions ?Recorded ?Confirmed ?Last Taken ?Type coenzyme Q10 100 mg capsule 200 mg PO DAILY 02/18/23 03/10/24 09/21/23 21:00 History (CoQ-10) carvedilol 25 mg tablet 25 mg PO BID 03/11/24 03/11/24 Unknown History rivaroxaban 20 mg tablet 20 mg PO QPM 03/11/24 03/11/24 03/09/24 History Allergies Allergy/AdvReac Type Severity Reaction Status Date / Time No Known Allergies Allergy Verified 03/10/24 14:16 Review of Systems 2 Review of Systems: All systems as dictated in HPI [facility] Past Medical History Medical History Acute CVA (cerebrovascular accident) Benign essential hypertension CHF (congestive heart failure) Coronary artery disease Cystocele with uterine prolapse Status post colpopexy. 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 History of lumbar laminectomy History of tonsillectomy and adenoidectomy History of total abdominal hysterectomy and bilateral salpingo-oophorectomy History of vein stripping Family History Family History Mother History of stroke Other Diabetes mellitus Sibling Alzheimer disease Social History Social History Social History: Surrogate medical decision maker: Mary Martinez, daughter. Code status: Full code. Smoking packs per day: 1 Smoking cigarettes per day: 20.0 Years smoked: 30 Smoking pack-years: 30.00 Smoking status: Never smoker Second hand tobacco smoke exposure: No Alcohol intake: never Substance use: never Substance use type: does not use Do You Feel Safe in your Home?: No Lack of Transportation: No Lack of Food: Never True Current Housing: Decline to Answer Concerned About Future Housing: Decline to Answer Difficulty Paying Gas/Electric Bills: Decline to Answer Difficulty Paying for Meds: Decline to Answer Currently Unemployed: Decline to Answer Education: Don't Know Difficulty w/ Childcare or Family Care: Decline to Answer Living arrangements: with family Occupation/Education: retired Gender identity (if verbalized by the patient): Female Sexual Orientation (if Verbalized by the Patient): Straight or Heterosexual Spiritual care concerns: No Agree to blood products: Yes Exam 2 Narrative: GENERAL: Well-appearing, well-nourished, and in no acute distress. HEAD: Normocephalic, atraumatic. EYES: PERRLA and EOMI. ENT: Nares clear, no rhinorrhea or epistaxis. Mucous membranes moist. Oropharynx without tonsillar hypertrophy exudate or other lesions. NECK: Supple. No adenopathy or masses. CHEST: No respiratory distress. Clear to auscultation. No wheezes rales or rhonchi HEART: Regular rate and rhythm. No murmur heard. Normal peripheral pulses. ABDOMEN: Soft, nontender, nondistended, normal active bowel sounds. MSK: Normal range of motion. No edema. SKIN: Warm, dry, no rash. NEURO: Alert and oriented x3-4. No focal deficits. PSYCH: Normal mood and affect. Poor insight Course Course Emergency Course: Patient seemed a little disoriented to situation. I was able to speak with the family member on the chart and nursing staff was able to get in touch with skilled nursing. Both her confirming that this disorientation is her typical baseline with Alzheimer dementia. Vital Signs Vital signs: Vital Signs Temperature 98 F 12/17/24 19:23 Pulse Rate 61 03/21/24 19:23 Respiratory Rate 14 03/21/24 19:23 Blood Pressure 153/55 H 03/21/24 19:23 Pulse Oximetry 100 03/21/24 19:23 Oxygen Delivery Room Air 03/21/24 19:23 Temperature 98 F 03/21/24 19:23 Pulse Rate 59 L 03/21/24 22:34 Respiratory Rate 14 03/21/24 22:34 Blood Pressure 166/58 H 03/21/24 22:34 Pulse Oximetry 96 03/21/24 22:34 Oxygen Delivery Room Air 03/21/24 19:23 MDM - Nausea/Vomiting/Diarrhea MDM Narrative Medical decision making narrative: This is a 78-year-old female who presents to the ED from skilled nursing for chief complaint of N/V/D with abdominal cramps.. Vitals are normal.. Exam shows minimal abdominal tenderness. She is alert oriented but disoriented at times, consistent with dementia history. Lab work shows elevated white count of 11.5. CMP shows elevated glucose but otherwise normal. Lactate mildly elevated at 2.7 on arrival. Urinalysis with elevated specific gravity, 3+ glucose and dehydration overall, but no infection. Viral swabs negative CT imaging of the abdomen and pelvis with IV contrast shows small sliding hiatal hernia, umbilical hernia and small volume of pelvic ascites. Patient is well-appearing on re-evaluation. She was given fluids and insulin for the elevated glucose and which has improved during her visit. She feels ready to go home. I discussed the plan of discharge with patient and family and they are agreeable. Presentation consistent with gastroenteritis. Patient will be discharged in stable condition back to assisted living. Supportive measures discussed and return precautions given. Lab Data 03/21/24 20:06 03/21/24 20:06 Labs: Lab Results 03/21/24 03/21/24 03/21/24 Range/Units 20:06 21:52 22:15 WBC 11.5 H (4.5-10.0) K/mm3 RBC 4.04 L (4.2-5.4) M/mm3 Hgb 12.9 (12.0-15.0) g/dL Hct 38.5 (37.0-47.0) % MCV 95.3 (80-100) fl MCH 31.9 (26-34) pg MCHC 33.5 (32-36) g/dl RDW 12.1 (11.5-14.5) % Plt Count 222 (150-375) k/mm3 MPV 12.2 H (7.4-10.4) fl Immature Gran % (Auto) 0.3 (0-0.5) % Neut % (Auto) 81.0 H (45.5-73.1) % Lymph % (Auto) 7.5 L (18.3-44.2) % Bucks % (Auto) 9.2 H (2.6-8.5) % Eos % (Auto) 1.7 (0-4.4) % Baso % (Auto) 0.3 (0.2-1.2) % Lymph # (Auto) 0.87 L (0.9-3.2) K/mm3 [place]ucks # (Auto) 1.1 H (0.1-0.6) K/mm3 Eos # (Auto) 0.2 (0-0.3) K/mm3 Baso # (Auto) 0.0 (0.0-0.1) K/mm3 Abs Immat Gran (auto) 0.03 (0.00-0.031) K/mm3 Absolute Neuts (auto) 9.3 H (1.3-6.7) K/mm3 Absolute Nucleated RBC 0.000 (0.0-0.012) K/mm3 Nucleated RBC % 0.0 (0.0-0.2) % Sodium 134 L (137-145) mmol/L Potassium 4.2 (3.4-5.0) mmol/L Chloride 103 (98-107) mmol/L Carbon Dioxide 26 (22-30) mmol/L Anion Gap 5 (4-12) mmol/L BUN 20 H (7-17) mg/dL Creatinine 0.50 L (0.7-1.0) mg/dL Estim Creat Clear Calc 66 ml/min Estimated GFR > 60 (59 - ) Glucose 261 H (65-110) mg/dL POC Capillary Glucose (65-105) mg/dl Lactic Acid 2.7 H (0.7-2.0) mmol/L Calcium 9.3 (8.4-10.2) mg/dL Total Bilirubin 0.4 (0.2-1.3) mg/dL AST 22 (14-36) U/L ALT 14 (6-35) U/L Alkaline Phosphatase 69 (38-126) U/L Total Protein 7.0 (6.3-8.2) g/dL Albumin 3.9 (3.5-5.1) g/dL Lipase 114 (23-300) U/L Urine Color Yellow (Yellow) Urine Appearance Clear (Clear) Urine pH 7.5 (5.0-9.0) Ur Specific [place] 1.040 H (1.001-1.035) Urine Protein Trace (Negative) mg/dL Urine Glucose (UA) 3+ H (Negative) mg/dL Urine Ketones Negative (Negative) mg/dL Ur Blood (Man) Negative (Negative) Urine Nitrate Negative (Negative) Urine Bilirubin Negative (Negative) Urine Urobilinogen 0.2 (<2.0) mg/dL Leukocyte Esterase Rfl Negative (Negative) SHELLEY/UL Urine RBC 0-2 (0-2) /hpf Urine WBC 6-10 H (0-3) /hpf Ur Squamous Epith Cells None seen (Few) /hpf Urine Bacteria None seen /hpf Urine Casts 0-2 Influenza A (RT-PCR) Negative (Negative) Influenza B (RT-PCR) Negative (Negative) RSV (RT-PCR) Negative (Negative) SARS-CoV-2 RNA (RT-PCR) Negative (Negative) 03/21/24 Range/Units 23:25 WBC (4.5-10.0) K/mm3 RBC (4.2-5.4) M/mm3 Hgb (12.0-15.0) g/dL Hct (37.0-47.0) % MCV (80-100) fl MCH (26-34) pg MCHC (32-36) g/dl RDW (11.5-14.5) % Plt Count (150-375) k/mm3 MPV (7.4-10.4) fl Immature Gran % (Auto) (0-0.5) % Neut % (Auto) (45.5-73.1) % Lymph % (Auto) (18.3-44.2) % Bucks % (Auto) (2.6-8.5) % Eos % (Auto) (0-4.4) % Baso % (Auto) (0.2-1.2) % Lymph # (Auto) (0.9-3.2) K/mm3 [place] # (Auto) (0.1-0.6) K/mm3 Eos # (Auto) (0-0.3) K/mm3 Baso # (Auto) (0.0-0.1) K/mm3 Abs Immat Gran (auto) (0.00-0.031) K/mm3 Absolute Neuts (auto) (1.3-6.7) K/mm3 Absolute Nucleated RBC (0.0-0.012) K/mm3 Nucleated RBC % (0.0-0.2) % Sodium (137-145) mmol/L Potassium (3.4-5.0) mmol/L Chloride (98-107) mmol/L Carbon Dioxide (22-30) mmol/L Anion Gap (4-12) mmol/L BUN (7-17) mg/dL Creatinine (0.7-1.0) mg/dL Estim Creat Clear Calc ml/min Estimated GFR (59 - ) Glucose (65-110) mg/dL POC Capillary Glucose 195 H (65-105) mg/dl Lactic Acid (0.7-2.0) mmol/L Calcium (8.4-10.2) mg/dL Total Bilirubin (0.2-1.3) mg/dL AST (14-36) U/L ALT (6-35) U/L Alkaline Phosphatase (38-126) U/L Total Protein (6.3-8.2) g/dL Albumin (3.5-5.1) g/dL Lipase (23-300) U/L Urine Color (Yellow) Urine Appearance (Clear) Urine pH (5.0-9.0) Ur Specific [place] (1.001-1.035) Urine Protein (Negative) mg/dL Urine Glucose (UA) (Negative) mg/dL Urine Ketones (Negative) mg/dL Ur Blood (Man) (Negative) Urine Nitrate (Negative) Urine Bilirubin (Negative) Urine Urobilinogen (<2.0) mg/dL Leukocyte Esterase Rfl (Negative) SHELLEY/UL Urine RBC (0-2) /hpf Urine WBC (0-3) /hpf Ur Squamous Epith Cells (Few) /hpf Urine Bacteria /hpf Urine Casts Influenza A (RT-PCR) (Negative) Influenza B (RT-PCR) (Negative) RSV (RT-PCR) (Negative) SARS-CoV-2 RNA (RT-PCR) (Negative) Discharge Plan Discharge Clinical Impression: Dehydration, Gastroenteritis Patient Disposition: NH Jail/Asst Living Condition: Stable Instructions: Antibiotic Form, Gastroenteritis (ED) Additional Instructions: Exam and imaging today are reassuring overall. Please stay well hydrated at home. Use Zofran as needed for nausea. If you have any new or worsening symptoms please return to the ER for further evaluation. Patient Language: Amharic Prescriptions: New ondansetron 4 mg tablet,disintegrating 4 mg PO Q8H PRN (Reason: nausea and vomiting) Qty: 10 0RF No Action coenzyme Q10 [CoQ-10] 100 mg Capsule 200 mg PO DAILY (DME) FreeStyle Haritha 3 [place] Misc See Rx Instructions .Route Qty: 2 1RF Rx Instructions: As directed (DME) FreeStyle Haritha 3 Sensor Device See Rx Instructions .Route Qty: 4 4RF Rx Instructions: As directed insulin degludec [Tresiba FlexTouch U-200] 200 unit/mL (3 mL) insulin pen 30 unit SUBCUT DAILY Qty: 9 0RF rosuvastatin 10 mg tablet 10 mg PO QPM Qty: 90 3RF paroxetine HCl 20 mg tablet 30 mg PO DAILY Qty: 135 2RF memantine 5 mg tablet 5 mg PO BID Qty: 60 2RF trazodone 50 mg tablet 50 mg PO QHS Qty: 90 3RF aspirin 81 mg tablet,chewable 81 mg PO QPM Qty: 90 2RF enalapril maleate 10 mg tablet 20 mg PO DAILY Qty: 90 4RF pantoprazole [Protonix] 40 mg tablet,delayed release (DR/EC) 40 mg PO QAM 28 Days Qty: 10 0RF rivaroxaban 20 mg Tablet 20 mg PO QPM carvedilol 25 mg tablet 25 mg PO BID insulin aspart U-100 [Novolog FlexPen U-100 Insulin] 100 unit/mL (3 mL) insulin pen 20 unit subcut TIDWM Qty: 15 0RF Rx Instructions: 20 unit subcutaneously TID WITH MEALS divalproex [Depakote] 125 mg tablet,delayed release (DR/EC) 125 mg PO BID Qty: 60 3RF Follow-up/Referrals: Ernestina Luevano MD [Primary Care Provider] -
[2024-03-21] MEDS: ONDANSETRON INJ 4 MG/2 ML VIAL IV PUSH (20:07)
[2024-03-21] MEDS: SODIUM CHLORIDE 0.9% IV 1,000 ML 999 ML IV CONT ×2 (20:07→22:31)
[2024-03-21 20:26] LABS: Basophils Percent Auto 0.3 % (0.2-1.2); Eosinophils Absolute Auto 0.2 K/mm3 (0-0.3); Eosinophils Percent Auto 1.7 % (0-4.4); Hematocrit 38.5 % (37.0-47.0); Hemoglobin 12.9 g/dL (12.0-15.0); Immature Granulocyte Absolute 0.03 K/mm3 (0.00-0.031); Immature Granulocyte Percent A 0.3 % (0-0.5); Lymphocytes Absolute Auto 0.87 K/mm3 (0.9-3.2); Lymphocytes Percent Auto 7.5 % (18.3-44.2); Mean Corpuscular HGB Conc 33.5 g/dl (32-36); Mean Corpuscular Hemoglobin 31.9 pg (26-34); Mean Corpuscular Volume 95.3 fl (80-100); Mean Platelet Volume 12.2 fl (7.4-10.4); Monocytes Absolute Auto 1.1 K/mm3 (0.1-0.6); Monocytes Percent Auto 9.2 % (2.6-8.5); Neutrophils Absolute Auto 9.3 K/mm3 (1.3-6.7); Platelet Count Result 222 k/mm3 (150-375); Red Blood Count 4.04 M/mm3 (4.2-5.4); Red Cell Distribution Width 12.1 % (11.5-14.5); White Blood Count 11.5 K/mm3 (4.5-10.0)
[2024-03-21 21:06] LABS: Alanine Aminotransferase 14 U/L (6-35); Albumin Level 3.9 g/dL (3.5-5.1); Alkaline Phosphatase 69 U/L (38-126); Anion Gap 5 mmol/L (4-12); Aspartate Amino Transferase 22 U/L (14-36); Bilirubin,Total 0.4 mg/dL (0.2-1.3); Blood Urea Nitrogen 20 mg/dL (7-17); Calcium 9.3 mg/dL (8.4-10.2); Carbon Dioxide 26 mmol/L (22-30); Chloride 103 mmol/L (98-107); Estimated CRCL calculation 66 ml/min; Estimated Glomerular Filt Rate > 60; Glucose 261 mg/dL (65-110); Lipase 114 U/L (23-300); Potassium 4.2 mmol/L (3.4-5.0); Sodium 134 mmol/L (137-145)
[2024-03-21 22:10] LABS: Lactic Acid Reflex 2.7 mmol/L (0.7-2.0)
[2024-03-21] MEDS: INSULIN HUMAN REGULAR (*BKC) 100 UNITS/ML IV PUSH (22:31)
[2024-03-21 22:34] VITALS: BP 166/58; PULSE 59; RESP 14; O2SAT 96
[2024-03-21 22:37] LABS: Influenza A QL RT-PCR Negative (Negative); Influenza B QL RT-PCR Negative (Negative); RSV RNA, RT-PCR Negative (Negative); SARS-CoV-2 RNA PCR Negative (Negative)
[2024-03-21 22:47] LABS: Add Urine Microscopic? YES; Appearance Urine Clear (Clear); Bacteria Urine None Seen /hpf; Bilirubin Urine Negative (Negative); Blood Urine Negative (Negative); Color Urine Yellow (Yellow); Glucose Urine UA 3+ mg/dL (Negative); Ketones Urine Negative (Negative); Leukocyte Esterase Ur Negative LEU/UL (Negative); Nitrate Urine Negative (Negative); Non Pathogenic Casts 0-2; Protein Urine Trace mg/dL (Negative); RBC Urine 0-2 /hpf (0-2); Squamous Epithelial Cell Urine None Seen /hpf (Few); Urobilinogen Urine 0.2 mg/dL (<2.0); pH Urine 7.5 (5.0-9.0)
[2024-03-21 23:28] LABS: Glucose Point of Care 195 mg/dl (65-105)
[2024-03-22 00:59] LABS: Reflex Lactic Acid Yes or No Add Lactic
== END 2024-03-22 02:40 ==
PROVIDERS: Emergency Medicine; Emergency Provider Physician Assistant; PCP Family Medicine
DX: K52.9 Noninfective gastroenteritis and colitis, unspecified (principal); E86.0 Dehydration; Z20.822 Contact with and (suspected) exposure to COVID-19; G30.9 Alzheimer's disease, unspecified; F02.80 Dementia in other diseases classified elsewhere, unspecified severity, without behavioral disturbance, psychotic disturbance, mood disturbance, and anxiety; I11.0 Hypertensive heart disease with heart failure; I50.9 Heart failure, unspecified; I25.10 Atherosclerotic heart disease of native coronary artery without angina pectoris; I25.5 Ischemic cardiomyopathy; I25.2 Old myocardial infarction; E11.319 Type 2 diabetes mellitus with unspecified diabetic retinopathy without macular edema; E11.40 Type 2 diabetes mellitus with diabetic neuropathy, unspecified; K21.9 Gastro-esophageal reflux disease without esophagitis; K44.9 Diaphragmatic hernia without obstruction or gangrene; M47.816 Spondylosis without myelopathy or radiculopathy, lumbar region; F17.210 Nicotine dependence, cigarettes, uncomplicated; Z95.1 Presence of aortocoronary bypass graft; Z87.442 Personal history of urinary calculi; Z86.73 Personal history of transient ischemic attack (TIA), and cerebral infarction without residual deficits; Z98.49 Cataract extraction status, unspecified eye; Z90.710 Acquired absence of both cervix and uterus; Z90.722 Acquired absence of ovaries, bilateral; Z90.79 Acquired absence of other genital organ(s); Z79.4 Long term (current) use of insulin; Z79.82 Long term (current) use of aspirin; Z79.01 Long term (current) use of anticoagulants; Z79.899 Other long term (current) drug therapy
CPT/HCPCS: 36415; 74177; 80053; 81001; 82948; 83605; 83690; 85025; 87086; 87637; 96361; 96365; 96366; 96375; 99284; J1815; J2405; J7030; Q9967

== ENCOUNTER 2024-05-17 14:48 | Inpatient (IN) | payer MEDICARE, OTHER, SELFPAY ==
[2024-05-17] VITALS (12 sets, daily range): BP systolic 114–173; BP diastolic 53–66; PULSE 50–60; RESP 12–20; TEMP 36.1–36.6; O2SAT 93–98; BMI 30.7
--- NOTE | ~2024-05-17 | XR_ITS ---
CHEST RADIOGRAPH CLINICAL HISTORY: sob . COMPARISON: 03/10/2024 TECHNIQUE: Single portable view of the chest, limited by patient rotation. FINDINGS Sternal wires and mediastinal clips are identified, the wires are midline and intact. Widening of the superior mediastinum, likely secondary to patient rotation rather than intrinsic path ology. Calcified lymph nodes within the mediastinum, suggesting prior granulomatous disease. The remainder of the cardiomediastinal silhouette is otherwise unremarkable. Increased interstitial markings are identified bilaterally, findings suggesting mild pulmonary vascul ar congestion. The lungs are otherwise clear. IMPRESSION: Mild pulmonary vascular congestion, without focal infiltrate or effusion. Reviewed, dictated and finalized at location A. 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
--- OUTSIDE RECORDS SUMMARY | 2024-05-17 15:02 | XMS_ITS | Referral Summary ---
Author Organization [facility] [employer] Address [address] [place] [address] Care Team Providers Care Welt Slasher Name Role Phone Franco Randolph MD Unavailable [phone] Ernestina Luevano MD Primary Care Provider + Cirilo Buenrostro MD Unavailable [phone] Source Comments [facility],non-owned Affiliates and Associated Physician Practices is amultiple site organization consisting of ambulatory clinics and hospital sitesin [place], [place], [place] and [place]. This disclosure is being madepursuant to the Care Everywhere program and may not contain all information available regarding this patient. Last updated 17.[facility] [employer] Allergies No known active allergies Medications * Be aware that medications may not be up to date on this document. Alwaysverify current medications with the patient. Medication Sig Dispensed Refills Start Date End Date Status enalapril (VASOTEC) 10 MG tablet Take 1 (one) tablet by mouth once daily 08/07/2017 Active carvedilol (COREG) 25 MG tablet Take 1 (one) tablet by mouth 2 times daily with morning and evening meal 08/07/2017 Active NOVOLOG FLEXPEN pen Inject 25 (twenty five) Units subcutaneously 3 times daily before meals 06/14/2017 Active rosuvastatin (CRESTOR) 10 MG tablet Take 1 (one) tablet by mouth once daily 1 02/07/2019 Active pantoprazole EC (PROTONIX) 40 MG tablet Take 1 (one) tablet by mouth once daily 07/03/2020 Active Continuous Blood Gluc Guitar Teacher (FreeStyle Haritha Roslyn) JACK Inject 1 device subcutaneously continuous 05/27/2022 Active Tresiba FlexTouch 200 UNIT/ML pen INJECT 36 UNITS SUBCUTANEOUSLY ONCE DAILY 05/27/2022 Active Coenzyme Q10 (CO Q 10 PO) Take 1 tablet by mouth once daily Active calcitriol (Rocaltrol) 0.5 MCG capsule Take 1 (one) capsule by mouth once daily 07/27/2022 Active oxyCODONE, immediate release, (Roxicodone) 5 MG tabletIndications:Pr imary osteoarthritis of both knees Take 1 (one) tablet to 2 (two) tablets by mouth every 6 hours as needed for Pain (pain) 56 tablet 08/25/2022 Active oxyCODONE, immediate release, (Roxicodone) 5 MG tabletIndications:Pr imary osteoarthritis of both knees Take 1 (one) tablet to 2 (two) tablets by mouth every 6 hours as needed for Pain (pain) 56 tablet 09/04/2022 Active Continuous Blood Gluc Sensor (FreeStyle Haritha 2 Sensor Systm) MISC CHANGE SENSOR EVERY 14 DAYS 09/09/2022 Active Active Problems Problem Noted Date Diagnosed Date Hyperglycemic hyperosmolar nonketotic coma 03/25 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 Coronary artery disease invo lving [place] coronary artery of [place] heart without angina pectoris 01/28/2017 Hx of CABG 01/28/2017 Cellulitis of left lower extremity 12/28/2016 Varicose vein of leg 12/28/2016 Overview (08/27/2017): Last Assessment & Plan: We will arrange a venous Doppler to determine if there is any underlying saphenous vein reflux. In the absence of GSV insufficiency, we would recommend phlebectomy of the left leg varicose veins. She agrees. We discussed the importance of lifelong support hose use to prevent future episodes of cellulitis. Social History Tobacco Use Types Packs/Day Years Used Date Smoking Tobacco: Former Cigarettes Smokeless Tobacco: Never Alcohol Use Standard Drinks/Week Comments Not Currently 0 (1 standard drink = 0.6 oz pur e alcohol) AUDIT-C Answer Date Recorded Q1: How often do you have a drink containing alcohol? Never 08/17/2022 Q2: How many drinks containi ng alcohol do you have on a typical day when you are drinking? Patient does not drink Q3: How often do you have si x or more drinks on one occasion? Never 08/17/2022 Sex and Gender Information Value Date Recorded Sex Assigned at Not on file Gender Identity Not on file Sexual Orientation Not on file Last Filed Vital Signs Vital Sign Reading Time Taken Comments Blood Pressure 144/47 08/18/2022 11:28 AM CDT Pulse 59 08/18/2022 11:28 AM CDT Temperature 36.7 C (98.1 F) 08/18/2022 11:28 AM CDT Respiratory Rate 18 08/18/2022 11:2 8 AM CDT Oxygen Saturation 91% 08/18/2022 11: 28 AM CDT Inhaled Oxygen Concentration - - Weight 79.3 kg (174 lb 12.8 oz) 08/17/2022 8:04 AM CDT Height 160 cm (5' 3 ) 08/17/2022 8:04 AM CDT Body Mass Index 30.96 08/17/2022 8:04 AM CDT Functional Status Functional Status Response Date of Assess ment Is person deaf or have serious hearing difficult y? No 08/18/2022 Is person blind or have serious difficulty seein g? No 08/18/2022 Does person have serious dif ficulty walking/climbing stairs? Yes 08/18/2022 Does person have difficulty dressing/bathing? Ye s 08/18/2022 Does person have difficulty doing errands alone? Yes 08/18/2022 Cognitive Status Response Date of Assessm ent Does person have difficulty concentrating/remembering/making decisions? No 08/18/2022 Plan of Treatment Not on file Medical Devices Implanted Type Area Prosthetics Assistant Device Identifier Shelf Expiration Date Model / Serial / Lot Cmnt Bone Djo Srg Cblt 40gm Hvisc Strl Implanted:Qty: 1 on 08/17/2022 by Franco Randolph MD at [facility] Left: Knee [employer] 11/27/2023 600-15-000 / / [id number] Cmpnt Ptlr Std 28mm 3 Pg Kn Ser A Implanted:Qty: 1 on 08/17/2022 by Franco Randolph MD at [facility] Left: Knee [employer] 05/07/2027 [id number] / / [id number] Tray Tib 75mm Kn Cocr I Beam Implanted:Qty: 1 on 08/17/2022 by Franco Randolph MD at [facility] Left: Knee [employer] 08/24/2031 [id number] / / [id number] Cmpnt Fem Kn Lt Cr Cmnt Prm Vngrd Intlk 67.5 Mm Implanted:Qty: 1 on 08/17/2022 by Franco Randolph MD at [facility] Left: Knee [employer] 06/02/2032 [id number] / / [id number] Brng [id number] Vngrd Arcm Kn Ant Stab Implanted:Qty: 1 on 08/17/2022 by Franco Randolph MD at [facility] Left: Knee [employer] 05/22/2027 [id number] / / [id number] Procedures Procedure Name Priority Date/Time Associated Diagnosis Comments BASIC METABOLIC PANEL (CALCIUM TOTAL) AM Draw 08/18/2022 10:10 AM CDT 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, unspecified laterality (HCC) from Last 3 Months or Most Recently Relevant to Health Maintenance Results * (ABNORMAL) BASIC METABOLIC PANEL (CALCIUM TOTAL) (08/18/2022 10:10 AM CDT) [facility] Glucose 288(H) 70 - 105 mg/dL 08/18/2022 10:45 AM CDT [facility] Sodium 138 136 - 145 mmol/L 08/18/2022 10:45 AM CDT [facility] Potassium 4.6 3.5 - 5.1 mmol/L 08/18/2022 10:45 AM CDT [facility] Chloride 106 98 - 107 mmol/L 08/18/2022 10:45 AM CDT [facility] CO2 23 23 - 31 mmol/L 08/18/2022 10:45 AM CDT [facility] Calcium 9.6 8.4 - 10.4 mg/dL 08/18/2022 10:45 AM CDT [facility] Anion Gap 9 8 - 18 mmol/L 08/18/2022 10:45 AM CDT [facility] BUN 36(H) 9.8 - 20.1 mg/dL 08/18/2022 10:45 AM CDT [facility] Creatinine 1.00 0.57 - 1.11 mg/dL 08/18/2022 10:45 AM CDT [facility] eGFR by CKD-EPI 58(L) >=90 mL/min/1.7 3 m2 08/18/2022 10:45 AM CDT [facility] Blood BLOOD SPECIMEN / Unknown Venipuncture / Unknown 08/18/2022 10:10 AM CDT 08/18/2022 10:15 AM CDT Sunita Bal MD LAB - CHEMISTRY ORD ERABLES [facility] [address] [place] [address] from Last 3 Months or Most Recently Relevant to Health Maintenance Advance Directives * Full Code (Latest Code Status on File) Date Activated Date Inactivated Comments 08/17/2022 1:40 PM 08/18/2022 4:20 PM Care Teams Welt Slasher Relationship Specialty Start Date End Date Ernestina Luevano MD [address] [place] [address] PCP - General Family Medicine 06/03/22 [place] [address] [place] [address] Orthopedic Surgery 08/27/17 Cirilo Buenrostro MD [address] [place], [place] [id number] Import Clerk Cardiology 08/12/22
--- OUTSIDE RECORDS SUMMARY | 2024-05-17 15:02 | XMS_ITS | Encounter Summary ---
Author Organization [employer] Address [address] [place] [address] Care Team Providers Care Automatic Pinsetter Mechanic Name Role Phone Unavailable Primary Care Provider Unavailabl e Encounter Details Date Type Department Care Team (Late st Contact Info) Description 04/18/2005 Outpatient Historical [facility] Support Serv. 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
--- OUTSIDE RECORDS SUMMARY | 2024-05-17 15:02 | XMS_ITS | Encounter Summary ---
Author Organization [facility] Address [address] [place] [address] Care Team Providers Care Mortgage Collector Name Role Phone Unavailable Primary Care Provider Unavailabl e Encounter Details Date Type Department Care Team (Latest Contact Info) Description 05/20/2005 Outpatient Historical [facility] Max Chavez MD [address] [address] PULMONARY COLLAPSE (Primary Dx) Social History Tobacco Use Types Packs/Day Years Used Date Smoking Tobacco: Never Assessed Comments Unknown Sex and Gender Information Value Date Recorded Sex Assigned at Not on file Legal Sex Female 5:02 AM PREPARING BOX TENDER Gender Identity Not on file Sexual Orientation Not on file documented as of this encounter Plan of Treatment Not on file documented as of this encounter Visit Diagnoses Diagnosis Pulmonary collapse- Primary documented in this encounter
--- OUTSIDE RECORDS SUMMARY | 2024-05-17 15:02 | XMS_ITS | Encounter Summary ---
Author Organization [facility] Address [address] [place] [address] Care Team Providers Care Er Registrar Name Role Phone Unavailable Primary Care Provider Unavailabl e Encounter Details Date Type Department Care Team (Late st Contact Info) Description 04/16/2005 Outpatient Historical [facility] Cardiovas and Thor Surg at [facility] Heart [address] [address] Richard Cotto, [place] NO ADDRESS ON FILE Social History Tobacco Use Types Packs/Day Years Used Date Smoking Tobacco: Never Assessed Comments Unknown Sex and Gender Information Value Date Recorded Sex Assigned at Not on file Legal Sex Female 5:02 AM EDUCATIONAL CONSULTANT Gender Identity Not on file Sexual Orientation Not on file documented as of this encounter Plan of Treatment Not on file documented as of this encounter Visit Diagnoses Not on filedocumented in this encounter
--- OUTSIDE RECORDS SUMMARY | 2024-05-17 15:02 | XMS_ITS | Encounter Summary ---
Author Organization [facility] Address [address] [place] [address] Care Team Providers Care Heavy Media Operator Name Role Phone Unavailable Primary Care Provider Unavailabl e Encounter Details Date Type Department Care Team (Late st Contact Info) Description 04/15/2005 Outpatient Historical [facility] Cardiovas and Thor Surg at [facility] Heart [address] [address] Max Jhaveri MD [address] [place] [phone] Social History Tobacco Use Types Packs/Day Years Used Date Smoking Tobacco: Never Assessed Comments Unknown Sex and Gender Information Value Date Recorded Sex Assigned at Not on file Legal Sex Female 5:02 AM DIRECTOR OF VOLUNTEER SERVICES Gender Identity Not on file Sexual Orientation Not on file documented as of this encounter Plan of Treatment Not on file documented as of this encounter Visit Diagnoses Not on filedocumented in this encounter
--- OUTSIDE RECORDS SUMMARY | 2024-05-17 15:02 | XMS_ITS | Encounter Summary ---
Author Organization [facility] Address [address] [address] [place] [address] Care Team Providers Care Band Sawmill Operator Name Role Phone Unavailable Primary Care Provider Unavailabl e Encounter Details Date Type Department Care Team (Late st Contact Info) Description 05/20/2005 Outpatient Historical [facility] Cardiovas and Thor Surg at [facility] Heart [address] [address] Max Jhaveri MD [address] [place] [phone] Social History Tobacco Use Types Packs/Day Years Used Date Smoking Tobacco: Never Assessed Comments Unknown Sex and Gender Information Value Date Recorded Sex Assigned at Not on file Legal Sex Female 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
--- OUTSIDE RECORDS SUMMARY | 2024-05-17 15:02 | XMS_ITS | Clinical Summary ---
Author Organization [facility] [address] Address [address] [place] [address] Care Team Providers Care Business Systems Architect Name Role Phone Catalina Mejia MD Primary Care Provider [phone] Josef Groves MD Unavailable [phone] Allergies No known active allergies Medications blood glucose diagnostic (RELION ULTIMA) strip test 1 by finger stick BS route once test fingerstick 3 times a day 100 strip 6 4 Active lancets (RELION ULTRA THIN PLUS LANCETS) misc testing 3x's daily 100 each 6 4 Active insulin syringe-needle U-100 (BD INSULIN SYRINGE ULT-FINE II) 0.5 mL 31 gauge x 5/16 syringe use with insulin 4x daily 150 Syringe 4 5 Active rosuvastatin (CRESTOR) 10 mg tablet Take 1 tablet (10 mg total) by mouth daily Active gabapentin (NEURONTIN) 300 mg capsule Take 1 capsule (300 mg total) by mouth 3 (three) times a day 0 Active calcitRIOL (ROCALTROL) 0.5 mcg capsule Take 1 capsule (0.5 mcg total) by mouth daily [address] (PROTONIX) 40 mg EC tablet Take 1 tablet (40 mg total) by mouth daily 3 Active flash glucose sensor (FreeStyle Haritha 2 Sensor) kit Inject 1 Device under the skin continuously Change every 14 days. E11.65 6 kit 3 3 Active insulin aspart (NovoLOG) 100 unit/mL (3 mL) pen for injection Inject 20 units 3 times daily 60 mL 3 3 Active ubidecarenone (coenzyme Q10) 60 mg capsule Take 1 tablet by mouth daily Active TRESIBA 200 unit/mL (3 mL) pen for injection Inject 0.15 mL (30 Units total) under the skin daily E11.65 15 mL 11 3 Active enalapril (VASOTEC) 10 mg tablet Take 1 tablet by mouth once daily 90 tablet 3 Active pen needle, diabetic (BD Ultra-Fine Mini Pen Needle) 31 gauge x 3/16 needle BD Ultra-Fine Mini Pen Needle 31 gauge x 3/16 USE TO INJECT INSULIN 4 TIMES DAILY 360 each 3 3 Active flash glucose scanning reader (FreeStyle Haritha 2 [place] [facility] [place] DIRECTED 1 each 1 3 Active carvediloL (COREG) 25 mg tablet TAKE 1 TABLET BY MOUTH TWICE DAILY WITH MEALS 180 tablet 3 Active Active Problems Problem Noted Date Diagnosed Date freestyle haritha 2 continuous glucose monitoring device 08/11/2022 Assessment & Plan (08/11/2022 4:41 PM CDT): Continuous glucose monitor (cgm) applied from 07/29 to 08/11/2022 This device was placed for monitor and treatment of blood sugar. Interpretation of data- average blood sugar 127. In target range 70%. Hyperglycemia 17%. Hypoglycemia-13%. Tresiba decrease to 30 units daily. Encouraged to call blood sugars for less than 100. Goal set to keep blood sugar between 120 and 150. Screen for colon cancer 07/22/2020 Overview (07/22/2020): Added automatically from request for surgery [id number] Chronic cholecystitis with calculus 03/27/2020 Calculus of gallbladder with chronic cholecystitis without obstruction 03/27/2020 Overview (03/27/2020): Added automatically from request for surgery [id number] Type 2 diabetes mellitus wit h hyperglycemia, with long-term current use of insulin ([facility]) 07/15/2017 Assessment & Plan (08/11/2022 4:37 PM CDT): This is a chronic condition which is improving and at goal of less than 8%. Personally reviewed most recent A1c - Lab Results Component Value Date HGBA1C 7.2 08/11/2022 Personally reviewed POC blood sugar- not at goal 80-180 Lab Results Component Value Date POCGLU 78 08/11/2022 correlated with fingerstick blood sugar. Fingerstick Blood sugar was 84. 8 glucose tablets provided as she was driving back to [place]. Instructed not to drive until all 8 tablets were consumed. Medication- decrease Tresiba to 30 units daily, continue NovoLog 15-20 units for breakfast and at dinner. She does not eat lunch Monitor blood sugar continuously with freestyle Haritha 2 sensor. Encouraged annual eye exam. Monofilament foot exam completed. protective senses intact Treated with Gabapentin Urine microalbumin/creatinine ratio - not at goal <30 not treated with carvedilol, enalapril, Personally reviewed CMP eGFR- 89 Kidney function- normal B/P today- not at goal of <140/90. continue carvedilol, enalapril Personally reviewed lipid panel. Not at Goal of less than 70. Continue rosuvastatin Assessment & Plan (05/27/2022 5:14 PM COLLECTIONS DIRECTOR): This is a chronic condition which is out of control, not at goal of less than 8% due to age. Personally reviewed most recent A1c - Lab Results Component Value Date HGBA1C 10.7 05/27/2022 Personally reviewed POC blood sugar- Lab Results Component Value Date POCGLU 260 05/27/2022 not at goal 80-180 Medication- stop levemir. Start tresiba 36 units daily. Continue Novolog as she has been taking it. Monitor blood sugar continuously with freestyle haritha 2 sensor. -office sample was provided Encouraged to call blood sugars in 1 week. Encouraged annual eye exam. Monofilament foot exam completed. protective senses intact Treated with gabapentin. Urine microalbumin/creatinine ratio - needed. goal <30 not treated with THANIA/ARB CMP needed and ordered. B/P today- not at goal of <140/90. continue Carvedilol and enalapril lipid panel needed and ordered. Goal of less than 70. Continue rosuvastatin. Assessment & Plan (07/15/2017 4:04 PM CDT): Foot care discussed. Coronary artery disease invo [place]ving [place] coronary artery of [place] heart without angina pectoris 01/28/2017 Hx of CABG 01/28/2017 Hyperlipidemia 08/16/2012 Overview (07/09/2016): HYPERLIPIDEMIA NEC/NOS Assessment & Plan (08/11/2022 4:38 PM CDT): This is a chronic condition which is not at goal of LDL less than 70 Continue rosuvastatin Encouraged to eat healthy, include fresh fruits and vegetables daily and avoid eating fried foods more than once per week. Encouraged to take medications as prescribed. Assessment & Plan (05/27/2022 5:15 PM COLLECTIONS DIRECTOR): This is a chronic condition. goal - LDL less than 70 Continue rosuvastatin. Encouraged to eat healthy, include fresh fruits and vegetables daily and avoid eating fried foods more than once per week. Encouraged to take medications as prescribed. Repeat lipid panel ordered. Assessment & Plan (03/11/2018 8:31 AM COLLECTIONS DIRECTOR): Continue statin and follow up with cardiology Assessment & Plan (12/03/2017 11:49 AM CDT): LDL at goal on current dose Assessment & Plan (08/26/2017 4:31 PM CDT): Obtain labs Hypertension associated with diabetes 08/16/2012 Overview (07/09/2016): HYPERTENSION NOS Assessment & Plan (08/11/2022 4:39 PM CDT): This is a chronic condition which is not at goal of less than 140/90 Personally reviewed labs. Continue carvedilol, enalapril Encouraged to void caffeine and excessive alcohol consumption as this will elevate B/P Encouraged to monitor weight and B/P at home Explained correct way to take blood pressure. - After 5 minutes of sitting calmly with arm supported. Encouraged to take medications as prescribed. Assessment & Plan (05/27/2022 5:15 PM COLLECTIONS DIRECTOR): This is a chronic condition which is not at goal of less than 140/90 Personally reviewed labs. Continue carvedilol/lisinopril Encouraged to void caffeine and excessive alcohol consumption as this will elevate B/P Encouraged to take medications as prescribed. Assessment & Plan (06/30/2018 3:59 PM CDT): Goal blood pressure is less than 140/85 Low salt diet recommended Daily aerobic exercise Continue current meds, including THANIA-I or ARB Assessment & Plan (03/11/2018 8:31 AM COLLECTIONS DIRECTOR): Controlled on current medications. Assessment & Plan (12/03/2017 11:48 AM CDT): Continue same medication and follow up with cardiology. Maintain hydration Assessment & Plan (08/26/2017 4:31 PM CDT): Controlled on current medications. Resolved Problems Problem Noted Date Diagnosed Date Resolved Date Hyperlipidemia associated wi th type 2 diabetes mellitus 06/30/2018 04/03/2020 Assessment & Plan (06/30/2018 4:00 PM CDT): Goal of treatment , LDL cholesterol less than 100 ( less than 70 in patients with history of heart attacks and / or strokes ) NonHDL cholesterol ( total cholesterol minus HDL cholesterol ) goal less than 130 ( less than 100 in patients with history of heart attacks and / or strokes ) Low cholesterol, low fat diet was discussed and advised. Daily exercise On statin therapy Phlebitis 11/03/2017 04/03/2020 Varicose veins of leg with pain, left 10/05/2017 04/03/2020 Overview (10/05/2017): Added automatically from request for surgery [id number] Cellulitis of left lower extremity 12/28/2016 04/03/2020 Varicose vein of leg 12/28/2016 020 Assessment & Plan (09/24/2017 1:49 PM CDT): She's s/p successful EVLT of the left GSV with residual symptomatic tributary veins for which we've discussed phlebectomy for definitve treatment vs. Compression hose for conservative therapy. She would like to proceed with definitive therapy as soon as possible. We will schedule left leg phlebectomy. Assessment & Plan (12/28/2016 2:32 PM CDT): We will arrange a venous Doppler to determine if there is any underlying saphenous vein reflux. In the absence of GSV insufficiency, we would recommend phlebectomy of the left leg varicose veins. She agrees. We discussed the importance of lifelong support hose use to prevent future episodes of cellulitis. Type 2 diabetes mellitus 08/30/2013 Overview (07/09/2016): DMII WO CMP UNCNTRLD Assessment & Plan (06/30/2018 3:59 PM CDT): Your Hba1c today was: Lab Results Component Value Date HGBA1C 8.8 06/30/2018 meaning a 3 month average sugar of : 207 Your goal hba1c is under 7.0 to prevent care home diabetes complications ( eye , kidney and nerve damage ) . Your goal sugars are in the 90-130 range Daily aerobic ( walking, riding a bike, swimming ) and resistance exercises ( light weight lifting, resistance band stretching ) for at least 30 minutes is recommended If you can not walk, chair exercises for 10-15 min a day would help tremendously. As little as 15-20 minutes exercise , in one or two sessions a day, is still very helpful to improve your diabetes control . Eat small portion meals, trying not to consume no more than 1800 calories a day . Try to eat not more than than 3 servings of carbs ( starches ) wiith your meals. Avoid soft drinks, including regular sodas , fruit juices and sweetened tea. Drink water instead. Eat plenty of green and leafy vegetables, including salads. Take your medications regularly. Setting phone alarms can help . Keep your medication on the kitchen dinner table, by the bedside table or by the sink where they are visible to you. The insulin that you are currently using does not need to be refrigerated. Keep it where you can see it . Monitor your sugar levels with finger sticks regularly and keep a log sheet or book. Bring your sugar meter and /or a log book or log sheet to every office visit. Stay on Levemir 25 units at bedtime Take Novolog, 8 units with meals For sugars over 180, take 10 units Over 240, take 14 units Stop Farxiga. Assessment & Plan (03/11/2018 8:30 AM COLLECTIONS DIRECTOR): A1c is 9.5. Increase Levemir to 34 units. Poor control is d/t complete lack of attention to diet. Reviewed importance of this again today and risk of hyperglycemia with cardiac history. Foot exam stable, foot care reviewed again. Assessment & Plan (12/03/2017 11:48 AM CDT): A1c 9.4, improved but still above goal. Continue with same dose of Levemir. Advised to be consistent with Novolog 15 units ac but do not use mid day as not eating full meal. Advised against making random adjustment to Novolog. Continue with Farxiga. Assessment & Plan (08/26/2017 4:30 PM CDT): Extensive conversation and education regarding the difference between basal and bolus insulin. Restart Levemir. Will start gently as it is unclear with conflicting reports of overnight high BG vs hypoglycemia. Instructed to increase dose q 5 days by 2 units until < 150. Send in BG weekly for adjustment. Will refine Novolog plan based on response to basal insulin and BG readings. Explained reason for labs. She agrees to go tomorrow. Assessment & Plan (07/15/2017 3:19 PM CDT): Your Hba1c today was: Lab Results Component Value Date HGBA1C 10.2 07/15/2017 meaning a 3 month average sugar of : 250 Your goal hba1c is under 7.0 to prevent [place] diabetes complications ( eye , kidney and nerve damage ) . Your goal sugars are in the 90-130 range Daily aerobic ( walking, riding a bike, swimming ) and resistance exercises ( light weight lifting, resistance band stretching ) for at least 30 minutes is recommended If you can not walk, chair exercises is very acceptable. As little as 15-20 minutes exercise , in one or two sessions a day, is still very helpful and will help to improve your diabetes control . Eat small portion meals, no more than 1800 calories Diet Try to eat not more than than 2-3 servings of carbs ( starches ) wiith your meals. Avoid soft drinks, including regular sodas , fruit juices and sweetened tea. Drink water instead. Eat plenty of green and leafy vegetables, including salads. Take your medications regularly,including your insulin injections. Monitor your sugar levels with finger sticks regularly and keep a log sheet or book. Bring your sugar meter and /or a log book or log sheet to every office visit. Start V GO 40, once a a day. Take 4 clicks ( 8 units ) with each meal, for sugars over 200, take 10 units Start Farxiga 10 mg daily. Hold Metformin until next Visit Encounters Date Type Department Care Team Description 03/31/2024 1:53 PM COLLECTIONS DIRECTOR - 03/31/2024 11:59 PM [facility] Hospital Encounter [address] [address] Discharge Disposition: Discharge to home or self care from Last 3 Months Surgical History Surgery Date Site/Laterality Comments ANGIOPLASTY 04/05/1991 - 04/04/1992 Angioplasty KNEE ARTHROSCOPY Arthroscopy knee COLONOSCOPY 04/05/2007 - 04/04/2008 normal CORONARY ARTERY BYPASS GRAFT 04/05/2004 - 04/04/2005 Redo Coronary artery bypass graft (CABG) Redo 2004 LAPAROSCOPIC CHOLECYSTECTOMY 04/05/2020 - 05/05/2020 uncomplicated HYSTERECTOMY 05/06/2018 - 06/02/2018 prolapse uterus LUMBAR LAMINECTOMY 04/05/2003 - 04/04/2004 Back surgery DEXA SCAN 06/22/2018 LBM MAMMOGRAPHY 04/05/2017 - 04/04/2018 normal VARICOSE VEIN SURGERY 04/05/2017 - 04/04/2018 Left CATARACT EXTRACTION, BILATERAL Bilateral uncomplicated CORONARY ARTERY BYPASS GRAFT CORONARY ARTERY BYPASS GRAFT (aka CABG) 3-V 1994 Medical History Medical History Date Comments Type 2 diabetes mellitus (HCC) D iabetes type 2 Cellulitis 2017 left leg X 2 GERD (gastroesophageal reflux disease) Dysphagia Cataract Hypertension Kidney stone Arthritis Retinal hemorrhage Retinal hemor rhage Bone spur Bone spur (right foot) Bone spur Bone spur (left foot) Mixed hyperlipidemia Age related osteoporosis Myalgia Varicose veins of both lower extremities with complications Androgenic alopecia, unspecified Abdominal pain Fecal smearing Coronary artery disease Myocardial infarction (HCC) Family History Medical History Relation Name Comments COPD Brother 1 COPD; Colon polyps Brother 1 Parkinsonism Brother 1 Hypertension Brother 2 Hypertension; Diabetes type II Daughter Colon polyps Father Coronary artery disease Father Simran nary artery disease; Kidney disease Father Renal disease ; Prostate cancer Father Cancer -pros bean; Skin cancer Father Cancer, skin; C ause of : Cancer, skin Valvular heart disease Father Valvu lar heart disease; Anuerysm Mother Aneurysm; Cause of : Aneurysm Other Other 1 Family history of Aneurysm; Valvular heart disease Other 2 Famil y history of Valvular heart disease; Alzheimer's disease Sister Hypertension Sister Hypertension; Relation Name Status Comments Brother 1 Brother 2 Daughter Father Mother Other 1 Other 2 Sister Social History Tobacco Use Types Packs/Day Years Used Date Smoking Tobacco: Former Cigarettes 0.5 15 0 12/03/1988 - 12/04/2003 Smokeless Tobacco: Never Tobacco Cessation:Counseling Given: Not Answered Comments:quit 2003 Alcohol Use Standard Drinks/Week Comments No 0 (1 standard drink = 0.6 oz pur e alcohol) AUDIT-C Answer Date Recorded Q1: How often do you have a drink containing alc ohol? Never 09/16/2020 Average Number of Drinks Not on file 021 Frequency of Binge Drinking Not on file 09/03 PHQ-2 Answer Date Recorded PHQ-2 Score 0 11/23/2018 Comments No Sex and Gender Information Value Date Recorded Sex Assigned at Not on file Legal Sex Female 10:56 AM COLLECTIONS DIRECTOR Gender Identity Not on file Sexual Orientation Not on file Obstetrics History Last Filed Vital Signs Vital Sign Reading Time Taken Comments Blood Pressure 118/64 08/11/2022 4:01 PM CDT Pulse 65 05/26/2022 2:15 PM COLLECTIONS DIRECTOR Temperature 36.3 C (97.3 F) 09/16/2020 8:32 AM CDT Respiratory Rate 15 09/16/2020 9:28 AM CDT Oxygen Saturation 97% 05/26/2022 2:15 PM COLLECTIONS DIRECTOR Inhaled Oxygen Concentration - - Weight 81.2 kg (179 lb) 08/11/2022 4:01 PM CDT Height 162.6 cm (5' 4 ) 08/11/2022 4:01 PM CDT Body Mass Index 30.73 08/11/2022 4:01 PM CDT Plan of Treatment Health Maintenance Due Date Last Done Comments Osteoporosis Screening-Bone Density Scan 1944 Dilated Eye Exam 1944 Hepatitis B Screening 1962 Zoster Vaccine (1 of 2) 1994 Well Visit 65+ 2009 Pneumococcal vaccine 65+ (2 of 2 - PPSV23 or PCV20) 03/21/2019 01/24/2019 Depression Screening 07/01/2019 06/30/2018, 07/16/19 Fall Risk Assessment 09/16/2021 09/16/2020 Hemoglobin A1C 02/11/2023 08/11/2022, 05/07, 04/03/2020, Additional history exists Albumin Creatinine Ratio, Urine 06/01/2023 , 09/11/2017 Foot Exam 08/12/2023 08/11/2022, 05/07, 03/10/2018, Additional history exists Influenza Vaccine (#1) 2023 01/24/2019 Lipid Panel 03/31/2025 03/31/2024, 2 10/2022, 07/15/2017, Additional history exists eGFR 03/31/2025 03/31/2024, 07/05, 07/24/2022, Additional history exists DTaP/Tdap/Td Vaccine (2 - Td or Tdap) 06/20/2028 06/20/2018, 07/01/2004 Colon Cancer Screening-CT Colonography Discontinued 09/16/2020, 06/16/2007 Colon Cancer Screening-Colonoscopy Discontinued 09/16/2020, 06/16/2007 Colon Cancer Screening-DNA Stool Discontinued 09/17/19 21, 06/16/2007 Colon Cancer Screening-FIT Discontinued 09/16/2020, Colon Cancer Screening-FOBT Discontinued 09/16/2020, 0 06/16/2007 Colon Cancer Screening-Sigmoidoscopy Discontinued 09/16/2020, 06/16/2007 Colorectal Cancer Screening Discontinued Procedures Procedure Name Priority Date/Time Associated Diagnosis Comments EGFR Routine 03/31/2024 10:51 AM COLLECTIONS DIRECTOR DIFFERENTIAL AUTO Routine 03/31/2024 10: 51 AM COLLECTIONS DIRECTOR LIPID PANEL Routine 03/31/2024 10:51 AM COLLECTIONS DIRECTOR CBC WITH AUTO DIFFERENTIAL Routine 03/31/2024 10:51 AM COLLECTIONS DIRECTOR GLUCOSE, RANDOM (OUTREACH) Routine 03/31/2024 10:51 AM COLLECTIONS DIRECTOR COMPREHENSIVE METABOLIC PANEL WITHOUT GLUCOSE (OUTREACH) Routine 03/31/2024 10:51 AM COLLECTIONS DIRECTOR POCT HEMOGLOBIN A1C Routine 08/11/2022 4 :07 PM CDT Type 2 diabetes mellitus with hyperglycemia, with long-term current use of insulin ([facility]) ([facility]) ALBUMIN CREATININE RATIO, URINE Routine 06/01/2022 8:10 AM COLLECTIONS DIRECTOR Type 2 diabetes mellitus with hyperglycemia, with long-term current use of insulin ([facility]) ([facility]) COLONOSCOPY 09/16/2020 8:22 AM CDT from Last 3 Months or Most Recently Relevant to Health Maintenance Results * Glucose, random (Outreach) (03/31/2024 10:51 AM COLLECTIONS DIRECTOR) Glucose 148 70 - 199 mg/dL Comment: Interpretive Data Fasting glucose >/= 126 mg/dl is diagnostic for diabetes. Fasting is defined as no caloric intake for at least 8 hours. Fasting glucose between 100 mg/dl to 125 mg/dl is diagnostic of prediabetes. In a patient with classic symptoms of hyperglycemia or hyperglycemic crisis, a random glucose >/= 200 mg/dl is diagnostic for diabetes. In the absence of unequivocal hyperglycemia, results should be confirmed by repeat testing. The classification and Diagnosis of Diabetes Diabetes Care 2021; 46: S19-S40. Current interpretive data was last revised 2022. Blood 03/31/2024 10:5 1 AM COLLECTIONS DIRECTOR 03/31/2024 2:12 PM COLLECTIONS DIRECTOR us Notinfile Unknown LAB BLOOD ORDERABLES Final Res ult Performing Organization Address City/[facility]/ZIP Co de Phone Number [facility] [address] [place] [address] * eGFR (03/31/2024 10:51 AM COLLECTIONS DIRECTOR) eGFR 82 >=60 mL/min/1. 73 m2 Comment: Interpretive Data Reference Interval Normal >/= 90 mL/min/1.73m2 Mildly decreased* 60 - 89 mL/min/1.73m2 Mildly to moderately decreased 45 - 59 mL/min/1.73m2 Moderately to severely decreased 30 - 44 mL/min/1.73m2 Severely decreased 15 - 29 mL/min/1.73m2 Kidney Failure < 15 mL/min/1.73m2 *Relative to young adult level Estimated glomerular filtration rate is determined by the 2020 CKD-EPI equation recommended by the National Kidney Foundation (A Unifying Approach to GFR Estimation: Recommendations of the NKF-ASK Task Force on Reassessing the Inclusion of Race in Diagnosing Kidney Disease, JASN 2020). The CKD-EPI equation should not be used for patients with unstable renal function and has not been validated in children and those over 70. Current interpretive data was last reviewed 2021. Blood 03/31/2024 10:5 1 AM COLLECTIONS DIRECTOR 03/31/2024 5:14 PM COLLECTIONS DIRECTOR us Notinfile Unknown LAB BLOOD ORDERABLES Final Res ult Performing Organization Address [facility]/ZIP Co de Phone Number [facility] [address] Department [place] [address] * Differential, auto (03/31/2024 10:51 AM COLLECTIONS DIRECTOR) Neutrophil abs 4.2 1.5 - 6.5 K/cumm Imm gran abs 0.0 0.0 - 0.1 K/cumm [facility] Lymphocyte abs 1.1 0.8 - 3.3 K/cumm [facility] Monocyte abs 0.6 0.2 - 0.8 K/cumm [facility] Eosinophil abs 0.3 0.0 - 0.5 K/cumm [facility] Basophil abs 0.0 0.0 - 0.1 K/cumm [facility] Neutrophil pct 67.4 % [facility] Comment: Interpretive Data Percent cell count reference ranges are not reported, since discordance with absolute values may lead to misinterpretation of CBC data. Current Interpretive Data was last revised on 2017. Imm gran pct 0.3 % [facility] Comment: Interpretive Data Percent cell count reference ranges are not reported, since discordance with absolute values may lead to misinterpretation of CBC data. Current Interpretive Data was last revised on 2017. Lymphocyte pct 17.4 % [facility] Comment: Interpretive Data Percent cell count reference ranges are not reported, since discordance with absolute values may lead to misinterpretation of CBC data. Current Interpretive Data was last revised on 2017. Monocyte pct 10.1 % [facility] Comment: Interpretive Data Percent cell count reference ranges are not reported, since discordance with absolute values may lead to misinterpretation of CBC data. Current Interpretive Data was last revised on 2017. Eosinophil pct 4.2 % [facility] Comment: Interpretive Data Percent cell count reference ranges are not reported, since discordance with absolute values may lead to misinterpretation of CBC data. Current Interpretive Data was last revised on 2017. Basophil pct 0.6 % [facility] Comment: Interpretive Data Percent cell count reference ranges are not reported, since discordance with absolute values may lead to misinterpretation of CBC data. Current Interpretive Data was last revised on 2017. Blood 03/31/2024 10:5 1 AM COLLECTIONS DIRECTOR 03/31/2024 2:13 PM COLLECTIONS DIRECTOR us Notinfile Unknown LAB BLOOD ORDERABLES Final Res ult [facility] [address] [place] [address] * Comprehensive metabolic panel, without glucose (Outreach) (03/31/2024 10:51 AM COLLECTIONS DIRECTOR) Sodium 141 135 - 145 mmol/L Potassium, pl 4.7 3.3 - 4.9 mmol/L [facility] Chloride 103 97 - 110 mmol/L [facility] CO2 28 22 - 32 mmol/L [facility] Anion gap 10 2 - 15 mmol/L [facility] BUN 18 6 - 25 mg/dL [facility] Creatinine 0.74 0.60 - 1.10 mg/dL [facility] Calcium 9.7 8.5 - 10.3 mg/dL [facility] Protein, pl 6.9 6.5 - 8.5 g/dL [facility] Albumin 3.9 3.5 - 5.0 g/dL [facility] Bilirubin, total 0.3 0.1 - 1.2 mg/dL [facility] Alk phos 59 40 - 130 Units/L [facility] AST 17 10 - 45 Units/L [facility] ALT 15 7 - 45 Units/L [facility] Blood 03/31/2024 10:5 1 AM COLLECTIONS DIRECTOR 03/31/2024 2:12 PM COLLECTIONS DIRECTOR us Notinfile Unknown LAB BLOOD ORDERABLES Final Res ult [facility] [address] [place] [address] * (ABNORMAL) CBC with auto differential (03/31/2024 10:51 AM COLLECTIONS DIRECTOR) WBC 6.2 3.8 - 9.9 K/cumm Hgb 12.5 11.9 - 15.5 g/dL [facility] Hct 40.3 35.6 - 45.5 % [facility] Plt 228 150 - 400 K/cumm [facility] MPV 13.1(H) 9.1 - 12.3 fL [facility] RBC 3.96 3.90 - 5.20 M/cumm [facility] MCV 101.8(H) 81.3 - 96.4 fL [facility] MCH 31.6 27.1 - 33.3 pg [facility] MCHC 31.0(L) 32.3 - 35.7 g/dL [facility] RDW CV 13.0 11.1 - 14.9 % [facility] RDW SD 48.5(H) 35.7 - 48.1 fL [facility] NRBC abs 0.00 0.00 - 0.01 K/cumm [facility] Blood 03/31/2024 10:5 1 AM COLLECTIONS DIRECTOR 03/31/2024 2:13 PM COLLECTIONS DIRECTOR us Notinfile Unknown LAB BLOOD ORDERABLES Final Res ult [facility] [address] [place] [address] * Lipid panel (03/31/2024 10:51 AM COLLECTIONS DIRECTOR) Cholesterol 177 30 - 199 mg/dL Comment: Interpretive Data Ages < or = 19 years Acceptable: <170 mg/dL Borderline high: 170-199 mg/dL High: >or= 200 mg/dL Ages > or = 20 years Desirable: <200 mg/dL Borderline high: 200-239 mg/dL High: >or= 240 mg/dL Literature References: 1. Expert Panel on Integrated Guidelines for Cardiovascular Health and Risk Reduction in Children and Adolescents. Pediatrics 2011;128:S213 2. NCEP Expert Panel. Circulation 2004;110:227 Current Interpretive Data was last revised on 2017. Triglycerides 96 <=149 mg/dL [facility] Comment: Interpretive Data Ages < or = 9 years Acceptable: <75 mg/dL Borderline high: 75-99 mg/dL High: >or= 100 mg/dL Ages 10 to 20 years Acceptable: <90 mg/dL Borderline high: 90-129 mg/dL High: >or= 130 mg/dL Ages > or = 20 years Desirable: <150 mg/dL Borderline high: 150-199 mg/dL High: 200-499 mg/dL Very high: >or= 499 mg/dL Literature References: 1. Expert Panel on Integrated Guidelines for Cardiovascular Health and Risk Reduction in Children and Adolescents. Pediatrics 2011;128:S213 2. NCEP Expert Panel. Circulation 2004;110:227 Current Interpretive Data was last revised on 2017. HDL 53 >=40 mg/dL [facility] Comment: Interpretive Data Ages < or = 19 years Acceptable: >45 mg/dL Borderline low: 40-45 mg/dL Low: <40 mg/dL Ages > or = 20 years Desirable: >or= 60 mg/dL Low: <40 mg/dL Literature References: 1. Expert Panel on Integrated Guidelines for Cardiovascular Health and Risk Reduction in Children and Adolescents. Pediatrics 2011;128:S213 2. NCEP Expert Panel. Circulation 2004;110:227 Current Interpretive Data was last revised on 2017. LDL, calculated 106 <=129 mg/dL [facility] Comment: Interpretive Data Ages < or = 19 years Acceptable: <110 mg/dL Borderline high: 110-129 mg/dL High: >or= 130 mg/dL Ages > or = 20 years Optimal: <100 mg/dL Near optimal: 100-129 mg/dL Borderline high: 130-159 mg/dL High: >160 mg/dL Calculated using the Brandon LDL-C estimating equation. This equation was implemented on 2023. Prior to this date LDL-C was estimated using the Friedewald equation. Literature References: 1. Expert Panel on Integrated Guidelines for Cardiovascular Health and Risk Reduction in Children and Adolescents. Pediatrics 2011;128:S213 2. NCEP Expert Panel. Circulation 2004;110:227 3. Brandon M et al. DANIEL Cardiol. 2020 August 03;5(5):540-548. doi: [email or web address] Current Interpretive Data was last revised on 2023. Non-HDL Cholesterol 124 mg/dL [facility] Comment: Interpretive Data Ages < or = 19 years Acceptable: <120 mg/dL Borderline high: 120-144 mg/dL High: >145 mg/dL Ages > or = 20 years When triglycerides are >200 mg/dL, Non-HDL cholesterol is a secondary target of therapy with treatment goals that are 30 mg/dL greater than the LDL cholesterol target. Literature References: 1. Expert Panel on Integrated Guidelines for Cardiovascular Health and Risk Reduction in Children and Adolescents. Pediatrics 2011;128:S213 2. NCEP Expert Panel. Circulation 2004;110:227 Current Interpretive Data was last revised on 2017. Chol/HDL ratio 3 [facility] Blood 03/31/2024 10:5 1 AM COLLECTIONS DIRECTOR 03/31/2024 2:12 PM COLLECTIONS DIRECTOR us Notinfile Unknown LAB BLOOD ORDERABLES Final Res ult [facility] Geovanni RigoJeffery Teri Department [place] [address] * POCT hemoglobin A1c (08/11/2022 4:07 PM CDT) Hemoglobin A1C, POC 7.2 % Blood 08/11/2022 4:07 PM CDT Yennifer Cosby NP POINT OF CARE TEST ORDERABLES F inal Result * (ABNORMAL) Albumin Creatinine Ratio, Urine (06/01/2022 8:10 AM COLLECTIONS DIRECTOR) Albumin Ur 112.4 mg/L [facility] ([place]) Comment: Interpretive Data No reference range established. Current interpretive data was last revised 2018. Testing performed by: [facility], [address] [place] [address]., [id number] Creatinine Ur 107.2 mg/dL [facility] ([place]) Comment: Interpretive Data No reference range established. Current interpretive data was last revised 2018. Testing performed by: [address] [address] Albumin Creatinine Ratio, Ur 105(H) 1 - 29 mg/g [facility] ([place]) Comment:Testing performed by : [address] [address] Urine 06/01/2022 8:10 AM COLLECTIONS DIRECTOR 06/01/2022 11:15 AM COLLECTIONS DIRECTOR Yennifer Cosby NP LAB URINE ORDERABLES Final Resu lt [facility] ([place]) 1 [facility] Department [place] [address] * COLONOSCOPY (09/16/2020 8:22 AM CDT) Anatomical Region Laterality Modality Other Narrative Procedure Note Danitza Sawyer MD - 09/16/2020 8:22 AM CDT ENDOSCOPY LAB Patient Name: Ana M Junior Procedure Date: 09/16/2020 8:22 AM Admit Type: Outpatient Room: [facility] Date of : 1945 Instrument Name: [id number] Gender: Female Note Status: Finalized Procedure: Colonoscopy Indications: Screening for colorectal malignant neoplasm Comorbidities No comorbidities Providers: Danitza Sawyer M.D. Referring MD: Catalina Mejia MD Medicines: Propofol per Anesthesia Complications: No immediate complications. Estimated Blood Loss: Estimated blood loss: none. Procedure: Pre-Anesthesia Assessment: - Prior to the procedure, a History and Physicalwas performed, and patient medications and allergieswere reviewed. The patient's tolerance of previous anesthesia was also reviewed. The risks andbenefits of the procedure and the sedation options and risks were discussed with the patient. All questions were answered, and informed consent was obtained. Prior Anticoagulants: The patient has taken no previous anticoagulant or antiplatelet agents. ASA Grade Assessment: II - A patient with mild systemicdisease. After reviewing the risks and benefits, the patient was deemed in satisfactory condition to undergo the procedure. - The risks and benefits of the procedure and the sedation options and risks were discussed with the patient. All questions were answered and informed consent was obtained. The benefits, risks and alternatives of theprocedure and sedation were discussed and informed consentwas obtained. All questions were answered. Please referto the signed informed consent document in the medical record. The scope was passed under direct vision.The Colonoscope was introduced through the anus and advanced to the the terminal ileum. The colonoscopy was performed without difficulty. The quality ofthe bowel preparation was evaluated using the BBPS([place] Bowel Preparation Scale) with scores of: RightColon = 2 (minor amount of residual staining, smallfragments of stool and/or opaque liquid, but mucosa seenwell), Transverse Colon = 2 (minor amount of residual staining, small fragments of stool and/or opaque liquid, but mucosa seen well) and Left Colon = 1 (portion of mucosa seen, but other areas not wellseen due to staining, residual stool and/or opaqueliquid). The total BBPS score equals 5. The quality of the bowel preparation was fair. The bowel preparationused was Miralax via split dose instruction. Bowel prepwas administered using a split dose. Findings: The perianal and digital rectal examinations were normal. The colon (entire examined portion) appeared normal. The terminal ileum appeared normal. The retroflexed view of the distal rectum and anal verge was normaland showed no anal or rectal abnormalities. Impression: - Preparation of the colon was fair. - The entire examined colon is normal. - The examined portion of the ileum was normal. - The distal rectum and anal verge are normal on retroflexion view. - No specimens collected. Recommendation: - Patient has a contact number available for emergencies. The signs and symptoms of potential delayed complications were discussed with thepatient. Return to normal activities tomorrow. Written discharge instructions were provided to thepatient. - Resume previous diet. - Continue present medications. - Repeat colonoscopy is not recommended due tocurrent age (66 years or older). - Return to primary care physician as previously scheduled. Attending Participation: I personally performed the entire procedure. Electronically signed by Danitza Sawyer MD Danitza Sawyer M.D. 09/16/2020 9:09:20 AM Number of Addenda: 0 Note Initiated On: 09/16/2020 8:22 AM Scope In: Scope Out: Danitza Sawyer MD ENDOSCOPY PROCEDURES Final Resul t from Last 3 Months or Most Recently Relevant to Health Maintenance Insurance [id number] [facility] MEDICARE [facility] [id number] [place] [address] [facility] [place] [address] [facility] MEDICARE [facility] [address] [employer] [facility] MEDICARE Advance Directives For more information, please contact: [phone] * Full Code (Latest Code Status on File) Date Activated Date Inactivated Comments 09/16/2020 7:53 AM 09/16/2020 1:51 PM * Full Code Date Activated Date Inactivated Comments 04/08/2020 8:07 PM 04/09/2020 3:48 PM * Full Code Date Activated Date Inactivated Comments 12/04/2019 7:00 AM 12/04/2019 1:23 PM * Full Code Date Activated Date Inactivated Comments 10/02/2019 11:59 AM 10/02/2019 5:31 PM Care Teams Business Systems Architect Relationship Specialty Start Date End Date Catalina Mejia MD [address] [place] [address] PCP - General Internal Medicine 09/05/19 Josef Groves MD [address] [place] [address] Consulting Physician General Surgery 04/08/20
--- OUTSIDE RECORDS SUMMARY | 2024-05-17 15:02 | XMS_ITS | Referral Summary ---
Author Organization [facility] [place] [address] Address [address] [place] [address] Care Team Providers Care Scalemaker Name Role Phone Catalina Mejia MD Primary Care Provider [phone] Josef Groves MD Unavailable Encounters Date Type Department Care Team Description 03/31/2024 1:53 PM TOOL SETTER APPRENTICE - 03/31/2024 11:59 PM TOOL SETTER APPRENTICE Hospital Encounter [id number] [place] [address] Discharge Disposition: Discharge to home or self care from Last 3 Months Allergies No known active allergies Medications blood glucose diagnostic (RELION ULTIMA) strip test 1 by finger stick BS route once test fingerstick 3 times a day 100 strip 6 4 Active lancets (RELION ULTRA THIN PLUS LANCETS) misc testing 3x's daily 100 each 6 4 Active insulin syringe-needle U-100 (BD INSULIN SYRINGE ULT-FINE II) 0.5 mL 31 gauge x 16 syringe use with insulin 4x daily 150 [...] flash glucose scanning reader (FreeStyle Haritha 2 [place]) [facility] USE DIRECTED 1 each 1 3 Active [...] (07/22/2020): Added automatically from request for surgery [id number] Chronic cholecystitis with calculus 03/27/2020 Calculus of gallbladder with chronic cholecystitis without obstruction 03/27/2020 Overview (03/27/2020): Added automatically from request for surgery [id number] Type 2 diabetes mellitus wit h hyperglycemia, with long-term current use of insulin ([facility]) 07/15/2017 Assessment & Plan (08/11/2022 [...] provided as she was driving back to [place]. Instructed not to drive until all 8 [...] rosuvastatin Assessment & Plan (05/27/2022 5:14 PM TOOL SETTER APPRENTICE): This is a chronic condition which is [...] care discussed. Coronary artery disease invo lving [place] coronary artery of [place] heart without angina pectoris 01/28/2017 Hx of [...] prescribed. Assessment & Plan (05/27/2022 5:15 PM TOOL SETTER APPRENTICE): This is a chronic condition. goal - LDL less than 70 Continue rosuvastatin. Encouraged to eat healthy, include fresh fruits and vegetables daily and avoid eating fried foods more than once per week. Encouraged to take medications as prescribed. Repeat lipid panel ordered. Assessment & Plan (03/11/2018 8:31 AM TOOL SETTER APPRENTICE): Continue statin and follow up with cardiology [...] prescribed. Assessment & Plan (05/27/2022 5:15 PM TOOL SETTER APPRENTICE): This is a chronic condition which is [...] ARB Assessment & Plan (03/11/2018 8:31 AM TOOL SETTER APPRENTICE): Controlled on current medications. Assessment & Plan [...] (10/05/2017): Added automatically from request for surgery [id number] Cellulitis of left lower extremity 12/28/2016 04/03/2020 [...] goal hba1c is under 7.0 to prevent nursing home diabetes complications ( eye , kidney [...] Farxiga. Assessment & Plan (03/11/2018 8:30 AM TOOL SETTER APPRENTICE): A1c is 9.5. Increase Levemir to 34 [...] goal hba1c is under 7.0 to prevent nursing home diabetes complications ( eye , kidney [...] mg daily. Hold Metformin until next Visit Social History Tobacco Use Types Packs/Day Years [...] on file Legal Sex Female 10:56 AM TOOL SETTER APPRENTICE Gender Identity Not on file Sexual Orientation Not on file Last Filed Vital Signs Vital Sign Reading Time Taken Comments Blood Pressure 118/64 08/11/2022 4:01 PM CDT Pulse 65 05/26/2022 2:15 PM TOOL SETTER APPRENTICE Temperature 36.3 C (97.3 F) 09/16/2020 8:32 AM CDT Respiratory Rate 15 09/16/2020 9:28 AM CDT Oxygen Saturation 97% 05/26/2022 2:15 PM TOOL SETTER APPRENTICE Inhaled Oxygen Concentration - - Weight 81.2 kg (179 lb) 08/11/2022 4:01 PM CDT Height 162.6 cm (5' 4 ) 08/11/2022 4:01 PM CDT Body Mass Index 30.73 08/11/2022 4:01 PM CDT Plan of Treatment Not on file Procedures Procedure Name Priority Date/Time Associated Diagnosis Comments EGFR Routine 03/31/2024 10:51 AM TOOL SETTER APPRENTICE DIFFERENTIAL AUTO Routine 03/31/2024 10: 51 AM TOOL SETTER APPRENTICE LIPID PANEL Routine 03/31/2024 10:51 AM TOOL SETTER APPRENTICE CBC WITH AUTO DIFFERENTIAL Routine 03/31/2024 10:51 AM TOOL SETTER APPRENTICE GLUCOSE, RANDOM (OUTREACH) Routine 03/31/2024 10:51 AM TOOL SETTER APPRENTICE COMPREHENSIVE METABOLIC PANEL WITHOUT GLUCOSE (OUTREACH) Routine 03/31/2024 10:51 AM TOOL SETTER APPRENTICE POCT HEMOGLOBIN A1C Routine 08/11/2022 4 :07 PM CDT Type 2 diabetes mellitus with hyperglycemia, with long-term current use of insulin ([facility]) ([facility]) ALBUMIN CREATININE RATIO, URINE Routine 06/01/2022 8:10 AM TOOL SETTER APPRENTICE Type 2 diabetes mellitus with hyperglycemia, with long-term current use of insulin ([facility]) ([facility]) COLONOSCOPY 09/16/2020 8:22 AM CDT from Last 3 Months or Most Recently Relevant to Health Maintenance Results * Glucose, random (Outreach) (03/31/2024 10:51 AM TOOL SETTER APPRENTICE) Glucose 148 70 - 199 mg/dL Comment: [...] revised 2022. Blood 03/31/2024 10:5 1 AM TOOL SETTER APPRENTICE 03/31/2024 2:12 PM TOOL SETTER APPRENTICE us Notinfile Unknown LAB BLOOD ORDERABLES Final Res ult [facility] [address] Department of [employer] [place] [address] * eGFR (03/31/2024 10:51 AM TOOL SETTER APPRENTICE) eGFR 82 >=60 mL/min/1. 73 m2 Comment: [...] reviewed 2021. Blood 03/31/2024 10:5 1 AM TOOL SETTER APPRENTICE 03/31/2024 5:14 PM TOOL SETTER APPRENTICE us Notinfile Unknown LAB BLOOD ORDERABLES Final Res ult SY [facility] [address] Department [place] [address] * Differential, auto (03/31/2024 10:51 AM TOOL SETTER APPRENTICE) Neutrophil abs 4.2 1.5 - 6.5 K/cumm Imm gran abs 0.0 0.0 - 0.1 K/cumm [facility] Lymphocyte abs 1.1 0.8 - 3.3 K/cumm [facility] Monocyte abs 0.6 0.2 - 0.8 K/cumm [facility] Eosinophil abs 0.3 0.0 - 0.5 K/cumm [facility] Basophil abs 0.0 0.0 - 0.1 K/cumm [facility] Neutrophil pct 67.4 % [facility] Comment: Interpretive Data Percent cell count reference ranges are not reported, since discordance with absolute values may lead to misinterpretation of CBC data. Current Interpretive Data was last revised on 2017. Imm gran pct 0.3 % [facility] Comment: Interpretive Data Percent cell count reference ranges are not reported, since discordance with absolute values may lead to misinterpretation of CBC data. Current Interpretive Data was last revised on 2017. Lymphocyte pct 17.4 % [facility] Comment: Interpretive Data Percent cell count reference ranges are not reported, since discordance with absolute values may lead to misinterpretation of CBC data. Current Interpretive Data was last revised on 2017. Monocyte pct 10.1 % [facility] Comment: Interpretive Data Percent cell count reference ranges are not reported, since discordance with absolute values may lead to misinterpretation of CBC data. Current Interpretive Data was last revised on 2017. Eosinophil pct 4.2 % [facility] Comment: Interpretive Data Percent cell count reference ranges are not reported, since discordance with absolute values may lead to misinterpretation of CBC data. Current Interpretive Data was last revised on 2017. Basophil pct 0.6 % [facility] Comment: Interpretive Data Percent cell count reference ranges are not reported, since discordance with absolute values may lead to misinterpretation of CBC data. Current Interpretive Data was last revised on 2017. Blood 03/31/2024 10:5 1 AM TOOL SETTER APPRENTICE 03/31/2024 2:13 PM TOOL SETTER APPRENTICE Notinfile Unknown LAB BLOOD ORDERABLES Final Res ult Performing Organization Address City/[facility]/ZIP Co de Phone Number [facility] [address] Department of [employer] [place], [place] [id number] * Comprehensive metabolic panel, without glucose (Outreach) (03/31/2024 10:51 AM TOOL SETTER APPRENTICE) Pathologist [facility] Sodium 141 135 - 145 mmol/L Potassium, pl 4.7 3.3 - 4.9 mmol/L [facility] Chloride 103 97 - 110 mmol/L [facility] CO2 28 22 - 32 mmol/L [facility] Anion gap 10 2 - 15 mmol/L [facility] BUN 18 6 - 25 mg/dL [facility] Creatinine 0.74 0.60 - 1.10 mg/dL [facility] Calcium 9.7 8.5 - 10.3 mg/dL [facility] Protein, pl 6.9 6.5 - 8.5 g/dL [facility] Albumin 3.9 3.5 - 5.0 g/dL [facility] Bilirubin, total 0.3 0.1 - 1.2 mg/dL [facility] Alk phos 59 40 - 130 Units/L [facility] AST 17 10 - 45 Units/L [facility] ALT 15 7 - 45 Units/L [facility] Blood 03/31/2024 10:5 1 AM TOOL SETTER APPRENTICE 03/31/2024 2:12 PM TOOL SETTER APPRENTICE us Notinfile Unknown LAB BLOOD ORDERABLES Final Res ult [facility] [address] Department of [employer] [place] [address] * (ABNORMAL) CBC with auto differential (03/31/2024 10:51 AM TOOL SETTER APPRENTICE) Pathologist [facility] WBC 6.2 3.8 - 9.9 K/cumm Hgb 12.5 11.9 - 15.5 g/dL [facility] Hct 40.3 35.6 - 45.5 % [facility] Plt 228 150 - 400 K/cumm [facility] MPV 13.1(H) 9.1 - 12.3 fL [facility] RBC 3.96 3.90 - 5.20 M/cumm [facility] MCV 101.8(H) 81.3 - 96.4 fL [facility] MCH 31.6 27.1 - 33.3 pg [facility] MCHC 31.0(L) 32.3 - 35.7 g/dL [facility] RDW CV 13.0 11.1 - 14.9 % [facility] RDW SD 48.5(H) 35.7 - 48.1 fL [facility] NRBC abs 0.00 0.00 - 0.01 K/cumm [facility] Blood 03/31/2024 10:5 1 AM TOOL SETTER APPRENTICE 03/31/2024 2:13 PM TOOL SETTER APPRENTICE us Notinfile Unknown LAB BLOOD ORDERABLES Final Res ult [facility] [address] Department [place] [address] * Lipid panel (03/31/2024 10:51 AM TOOL SETTER APPRENTICE) Cholesterol 177 30 - 199 mg/dL Comment: [...] revised on 2017. Triglycerides 96 <=149 mg/dL [facility] Comment: Interpretive Data Ages < or = [...] revised on 2017. HDL 53 >=40 mg/dL [facility] Comment: Interpretive Data Ages < or = [...] on 2017. LDL, calculated 106 <=129 mg/dL [facility] Comment: Interpretive Data Ages < or = [...] NCEP Expert Panel. Circulation 2004;110:227 3. Brandon Romero al. DANIEL Cardiol. 2020 August 03;5(5):540-548. doi: 10.1001/jamacardio.2020.0013 Current Interpretive Data was last revised on 2023. Non-HDL Cholesterol 124 mg/dL [facility] Comment: Interpretive Data Ages < or = [...] last revised on 2017. Chol/HDL ratio 3 [facility] Blood 03/31/2024 10:5 1 AM TOOL SETTER APPRENTICE 03/31/2024 2:12 PM TOOL SETTER APPRENTICE us Notinfile Unknown LAB BLOOD ORDERABLES Final Res ult [facility] [address] Department [place] [address] * POCT hemoglobin A1c (08/11/2022 4:07 PM CDT) Hemoglobin A1C, POC 7.2 % Blood 08/11/2022 4:07 PM CDT us Yennifer Cosby NP POINT OF CARE TEST ORDERABLES F inal Result * (ABNORMAL) Albumin Creatinine Ratio, Urine (06/01/2022 8:10 AM TOOL SETTER APPRENTICE) Albumin Ur 112.4 mg/L [facility] ([place]) Comment: Interpretive Data No reference range established. Current interpretive data was last revised 2018. Testing performed by: [facility], [address] [place] [address], [place]., [address] Creatinine Ur 107.2 mg/dL [facility] ([place]) Comment: Interpretive Data No reference range established. Current interpretive data was last revised 2018. Testing performed by: [address] [address] Albumin Creatinine Ratio, Ur 105(H) 1 - 29 mg/g [facility] ([place]) Comment:Testing performed by : [facility] [address] [place] [address], [place]., [address] Urine 06/01/2022 8:10 AM TOOL SETTER APPRENTICE 06/01/2022 11:15 AM TOOL SETTER APPRENTICE us Yennifer Cosby NP LAB URINE ORDERABLES Final Resu lt [facility] SLAUGHTER) 1 [facility] Department [place] [address] * COLONOSCOPY (09/16/2020 8:22 AM CDT) Anatomical Region Laterality Modality Other Narrative Procedure Note Danitza Sawyer MD - 09/16/2020 8:22 AM CDT ENDOSCOPY LAB Patient Name: Ana M Junior Procedure Date: 09/16/2020 8:22 AM Admit Type: Outpatient Room: [facility] Date of : 1945 Instrument Name: [id number] [...] ofthe bowel preparation was evaluated using the BBPS([place] Bowel Preparation Scale) with scores of: RightColon [...] Most Recently Relevant to Health Maintenance [place] [address] [employer] [facility] MEDICARE FORMERLY [facility] [id number] [place] [address] [facility] [address] [facility] MEDICARE [employer] OPEN ACCESS [employer] [facility] MEDICARE Advance Directives For more information, please contact: [phone] * Full Code (Latest Code Status on File) Date Activated Date Inactivated Comments 09/16/2020 7:53 AM 09/16/2020 1:51 PM * Full Code Date Activated Date Inactivated Comments 04/08/2020 8:07 PM 04/09/2020 3:48 PM * Full Code Date Activated Date Inactivated Comments 12/04/2019 7:00 AM 12/04/2019 1:23 PM * Full Code Date Activated Date Inactivated Comments 10/02/2019 11:59 AM 10/02/2019 5:31 PM Care Teams Scalemaker Relationship Specialty Start Date End Date Catalina Mejia MD [address] [place] [address] PCP - General Internal Medicine 09/05/19 Josef Groves MD [address] [place] [address] Consulting Physician General Surgery 04/08/20
--- OUTSIDE RECORDS SUMMARY | 2024-05-17 15:02 | XMS_ITS | Encounter Summary ---
Author Organization [facility] Address 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
--- OUTSIDE RECORDS SUMMARY | 2024-05-17 15:02 | XMS_ITS | Clinical Summary ---
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
--- OUTSIDE RECORDS SUMMARY | 2024-05-17 15:02 | XMS_ITS | Encounter Summary ---
Author Organization [facility] Address [address] [place] [address] Care Team Providers Care Imaging Analyst Name Role Phone Unavailable Primary Care Provider Unavailabl e Encounter Details Date Type Department Care Team (Latest Contact Info) Description 04/15/2005 Inpatient Historical HIS CARD EMAIL DESIGNER Max Jhaveri MD [address] [facility] [address] [place] [address] Cirilo Buenrostro MD [address] [facility] [address] [place] [id number] CORON ATHEROSCL KALISPEL CORON VESSEL (Primary Dx) Social History Tobacco Use Types Packs/Day Years Used Date Smoking Tobacco: Never Assessed Comments Unknown Sex and Gender Information Value Date Recorded Sex Assigned at Not on file Legal Sex Female 5:02 AM DIRECTOR HYDROGEN STORAGE ENGINEERING Gender Identity Not on file Sexual Orientation Not on file documented as of this encounter Plan of Treatment Not on file documented as of this encounter Procedures Procedure Name Priority Date/Time Associated Diagnosis Comments POC GLUCOSE Routine 04/19/2005 5:35 AM DIRECTOR HYDROGEN STORAGE ENGINEERING POC GLUCOSE Routine 04/18/2005 9:01 PM DIRECTOR HYDROGEN STORAGE ENGINEERING POC GLUCOSE Routine 04/18/2005 4:37 PM DIRECTOR HYDROGEN STORAGE ENGINEERING POC GLUCOSE Routine 04/18/2005 11:10 AM DIRECTOR HYDROGEN STORAGE ENGINEERING POC GLUCOSE Routine 04/18/2005 5:32 AM DIRECTOR HYDROGEN STORAGE ENGINEERING CBC WITH DIFFERENTIAL Routine 04/18/2005 5:00 AM DIRECTOR HYDROGEN STORAGE ENGINEERING CBC WITH DIFFERENTIAL Routine 04/18/2005 5:00 AM DIRECTOR HYDROGEN STORAGE ENGINEERING BASIC METABOLIC PANEL Routine 04/18/2005 5:00 AM DIRECTOR HYDROGEN STORAGE ENGINEERING POC GLUCOSE Routine 04/17/2005 9:10 PM DIRECTOR HYDROGEN STORAGE ENGINEERING CVR ONLY, CKMB/CK Routine 04/17/2005 7:3 9 PM DIRECTOR HYDROGEN STORAGE ENGINEERING POC GLUCOSE Routine 04/17/2005 4:50 PM DIRECTOR HYDROGEN STORAGE ENGINEERING POC GLUCOSE Routine 04/17/2005 11:06 AM DIRECTOR HYDROGEN STORAGE ENGINEERING POC GLUCOSE Routine 04/17/2005 6:13 AM DIRECTOR HYDROGEN STORAGE ENGINEERING POC GLUCOSE Routine 04/17/2005 4:45 AM DIRECTOR HYDROGEN STORAGE ENGINEERING PT AND APTT Routine 04/17/2005 4:23 AM DIRECTOR HYDROGEN STORAGE ENGINEERING CBC WITH DIFFERENTIAL Routine 04/17/2005 4:23 AM DIRECTOR HYDROGEN STORAGE ENGINEERING CBC WITH DIFFERENTIAL Routine 04/17/2005 4:23 AM DIRECTOR HYDROGEN STORAGE ENGINEERING MAGNESIUM LEVEL Routine 04/17/2005 4:23 AM DIRECTOR HYDROGEN STORAGE ENGINEERING COMPREHENSIVE METABOLIC PANEL Routine 04/17/2005 4:23 AM DIRECTOR HYDROGEN STORAGE ENGINEERING POC GLUCOSE Routine 04/17/2005 1:59 AM DIRECTOR HYDROGEN STORAGE ENGINEERING CVR ONLY, CKMB/CK Routine 04/17/2005 1:0 0 AM DIRECTOR HYDROGEN STORAGE ENGINEERING HEMOGLOBIN AND HEMATOCRIT Routine 04/17/2005 1:00 AM DIRECTOR HYDROGEN STORAGE ENGINEERING POTASSIUM LEVEL Routine 04/17/2005 1:00 AM DIRECTOR HYDROGEN STORAGE ENGINEERING POC GLUCOSE Routine 04/17/2005 12:53 AM DIRECTOR HYDROGEN STORAGE ENGINEERING POC GLUCOSE Routine 04/16/2005 11:21 PM DIRECTOR HYDROGEN STORAGE ENGINEERING POC GLUCOSE Routine 04/16/2005 10:17 PM DIRECTOR HYDROGEN STORAGE ENGINEERING POC GLUCOSE Routine 04/16/2005 9:29 PM DIRECTOR HYDROGEN STORAGE ENGINEERING POC, BLOOD GASES Routine 04/16/2005 8:45 PM DIRECTOR HYDROGEN STORAGE ENGINEERING POC GLUCOSE Routine 04/16/2005 8:26 PM DIRECTOR HYDROGEN STORAGE ENGINEERING POTASSIUM LEVEL Routine 04/16/2005 8:00 PM DIRECTOR HYDROGEN STORAGE ENGINEERING MAGNESIUM LEVEL Routine 04/16/2005 8:00 PM DIRECTOR HYDROGEN STORAGE ENGINEERING POC GLUCOSE Routine 04/16/2005 7:51 PM DIRECTOR HYDROGEN STORAGE ENGINEERING POC GLUCOSE Routine 04/16/2005 6:31 PM DIRECTOR HYDROGEN STORAGE ENGINEERING POC GLUCOSE Routine 04/16/2005 5:36 PM DIRECTOR HYDROGEN STORAGE ENGINEERING POC GLUCOSE Routine 04/16/2005 4:19 PM DIRECTOR HYDROGEN STORAGE ENGINEERING POC, BLOOD GASES Routine 04/16/2005 4:05 PM DIRECTOR HYDROGEN STORAGE ENGINEERING CVR ONLY, CKMB/CK Routine 04/16/2005 3:5 7 PM DIRECTOR HYDROGEN STORAGE ENGINEERING PT AND APTT Routine 04/16/2005 3:57 PM DIRECTOR HYDROGEN STORAGE ENGINEERING CBC WITH DIFFERENTIAL Routine 04/16/2005 3:57 PM DIRECTOR HYDROGEN STORAGE ENGINEERING CBC WITH DIFFERENTIAL Routine 04/16/2005 3:57 PM DIRECTOR HYDROGEN STORAGE ENGINEERING MAGNESIUM LEVEL Routine 04/16/2005 3:57 PM DIRECTOR HYDROGEN STORAGE ENGINEERING BASIC METABOLIC PANEL Routine 04/16/2005 3:57 PM DIRECTOR HYDROGEN STORAGE ENGINEERING LIPID PANEL Routine 04/16/2005 6:10 AM DIRECTOR HYDROGEN STORAGE ENGINEERING URINALYSIS W/REFLEX MICROSCOPIC Routine 04/15/2005 4:23 PM DIRECTOR HYDROGEN STORAGE ENGINEERING BASIC METABOLIC PANEL PLUS Routine 04/15/2005 12:40 PM DIRECTOR HYDROGEN STORAGE ENGINEERING PT AND APTT Routine 04/15/2005 12:40 PM DIRECTOR HYDROGEN STORAGE ENGINEERING CBC WITH DIFFERENTIAL Routine 04/15/2005 12:40 PM DIRECTOR HYDROGEN STORAGE ENGINEERING CBC WITH DIFFERENTIAL Routine 04/15/2005 12:40 PM DIRECTOR HYDROGEN STORAGE ENGINEERING BASIC METABOLIC PANEL Routine 04/15/2005 12:40 PM DIRECTOR HYDROG[employer] STORAGE ENGINEERING documented in this encounter Results * (ABNORMAL) POC GLUCOSE (04/19/2005 5:35 AM DIRECTOR HYDROGEN STORAGE ENGINEERING) COMMENT, GLU POC Notified RN INTERFACE SYSTEM GLUCOSE POC 142(H) 65 - 109 mg/dL INTERFACE SYSTEM 04/19/2005 5:35 AM DIRECTOR HYDROGEN STORAGE ENGINEERING Cirilo Buenrostro MD POINT OF CARE TESTING Fin al Result Performing Organization Address [facility] de Phone Number INTERFACE SYSTEM Refer to clinic/hospital department * (ABNORMAL) POC GLUCOSE (04/18/2005 9:01 PM DIRECTOR HYDROGEN STORAGE ENGINEERING) COMMENT, GLU POC Notified RN INTERFACE SYSTEM GLUCOSE POC 221(H) 65 - 109 mg/dL INTERFACE SYSTEM 04/18/2005 9:01 PM DIRECTOR HYDROGEN STORAGE ENGINEERING Cirilo Buenrostro MD POINT OF CARE TESTING Fin al Result Performing Organization Address [facility] de Phone Number INTERFACE SYSTEM Refer to clinic/hospital department * (ABNORMAL) POC GLUCOSE (04/18/2005 4:37 PM DIRECTOR HYDROGEN STORAGE ENGINEERING) GLUCOSE POC 170(H) 65 - 109 mg/dL INTERFACE SYSTEM 04/18/2005 4:37 PM DIRECTOR HYDROGEN STORAGE ENGINEERING Cirilo Buenrostro MD POINT OF CARE TESTING Fin al Result Performing Organization Address [facility] de Phone Number INTERFACE SYSTEM Refer to clinic/hospital department * (ABNORMAL) POC GLUCOSE (04/18/2005 11:10 AM DIRECTOR HYDROGEN STORAGE ENGINEERING) COMMENT, GLU POC Notified RN INTERFACE SYSTEM GLUCOSE POC 220(H) 65 - 109 mg/dL INTERFACE SYSTEM 04/18/2005 11:1 0 AM DIRECTOR HYDROGEN STORAGE ENGINEERING Cirilo Buenrostro MD POINT OF CARE TESTING Fin al Result Performing Organization Address [facility] Phone Number INTERFACE SYSTEM Refer to clinic/hospital department * (ABNORMAL) POC GLUCOSE (04/18/2005 5:32 AM DIRECTOR HYDROGEN STORAGE ENGINEERING) GLUCOSE POC 193(H) 65 - 109 mg/dL INTERFACE SYSTEM 04/18/2005 5:32 AM DIRECTOR HYDROGEN STORAGE ENGINEERING Cirilo Buenrostro MD POINT OF CARE TESTING Fin al Result Performing Organization Address [facility] Phone Number INTERFACE SYSTEM Refer to clinic/hospital department * (ABNORMAL) CBC WITH DIFFERENTIAL (04/18/2005 5:00 AM DIRECTOR HYDROGEN STORAGE ENGINEERING) NEUTROPHIL ABSOLUTE 5.67 1.90 - 7.00 K/uL INTERFACE SYSTEM LYMPHOCYTE ABSOLUTE 0.70 0.70 - 4.50 K/uL INTERFACE SYSTEM MONOCYTE ABSOLUTE 0.49 0.10 - 1.30 K/uL INTERFACE SYSTEM EOSINOPHIL ABSOLUTE 0.14 0.00 - 0.70 K/uL INTERFACE SYSTEM BASOPHILS ABSOLUTE 0.00 0.00 - 0.20 K/uL INTERFACE SYSTEM NEUTROPHILS, SEG 79(H) 45 - 70 % INTERFACE SYSTEM BANDS 2 0 - 5 % INTERFACE SYSTEM LYMPHOCYTES 10(L) 16 - 45 % INTERFAC E SYSTEM MONOCYTES 7 3 - 13 % INTERFACE SYSTEM EOSINOPHILS 2 0 - 7 % INTERFAC E SYSTEM BASOPHILS 0 0 - 2 % INTERFACE SYSTEM PLATELET EST. Consistent w/ count Normal INTERFACE SYSTEM RBC MORPHOLOGY Normal Normal INTER FACE SYSTEM 04/18/2005 5:00 AM DIRECTOR HYDROGEN STORAGE ENGINEERING Cirilo Buenrostro MD HEMATOLOGY ORDERABLES Fin al Result Performing Organization Address [facility] Phone Number INTERFACE SYSTEM Refer to clinic/hospital department * (ABNORMAL) CBC WITH DIFFERENTIAL (04/18/2005 5:00 AM DIRECTOR HYDROGEN STORAGE ENGINEERING) WBC 7.0 4.0 - 9.8 K/uL INTERFACE SYSTEM RBC 3.48(L) 3.90 - 4.90 M/uL INTERFACE SYSTEM HEMOGLOBIN 10.6(L) 11.8 - 14.8 g/dL INTERFACE SYSTEM HEMATOCRIT 31.9(L) 35.5 - 44.0 % INTERFACE SYSTEM MCV 91.7 82.0 - 99.0 fL INTERFACE SYSTEM MCH 30.5 27.2 - 32.6 pg INTERFACE SYSTEM MCHC 33.2 31.5 - 35.5 % INTERFACE SYSTEM RDW 14.1 11.5 - 14.5 % INTERFACE SYSTEM RDW-STDEV 46.8 37.1 - 48.7 fL INTERFACE SYSTEM PLATELETS 129(L) 140 - 350 K/uL INTERFACE SYSTEM MPV 11.4 9.3 - 12.4 fL INTERFACE SYSTEM 04/18/2005 5:00 AM DIRECTOR HYDROGEN STORAGE ENGINEERING Cirilo Buenrostro MD HEMATOLOGY ORDERABLES Fin al Result Performing Organization Address [facility] Phone Number INTERFACE SYSTEM Refer to clinic/hospital department * (ABNORMAL) BASIC METABOLIC PANEL (04/18/2005 5:00 AM DIRECTOR HYDROGEN STORAGE ENGINEERING) GLUCOSE 186(H) 65 - 109 mg/dL INTERFACE SYSTEM CREATININE 0.6 0.4 - 1.2 mg/dL INTERFACE SYSTEM CALCIUM 7.8(L) 8.6 - 10.2 mg/dL INTERFACE SYSTEM BUN 15 6 - 20 mg/dL INTERFACE SYSTEM SODIUM 134(L) 135 - 145 mmol/L INTERFACE SYSTEM POTASSIUM 4.2 3.5 - 4.9 mmol/L INTERFACE SYSTEM CHLORIDE 102 96 - 108 mmol/L INTERFACE SYSTEM CO2 23 22 - 30 mmol/L INTERFACE SYSTEM 04/18/2005 5:00 AM DIRECTOR HYDROGEN STORAGE ENGINEERING Cirilo Buenrostro MD CHEMISTRY ORDERABLES Sommer l Result Performing Organization Address [facility] Co de Phone Number INTERFACE SYSTEM Refer to clinic/hospital department * (ABNORMAL) POC GLUCOSE (04/17/2005 9:10 PM DIRECTOR HYDROGEN STORAGE ENGINEERING) GLUCOSE POC 261(H) 65 - 109 mg/dL INTERFACE SYSTEM 04/17/2005 9:10 PM DIRECTOR HYDROGEN STORAGE ENGINEERING Cirilo Buenrostro MD POINT OF CARE TESTING Fin al Result Performing Organization Address [facility] de Phone Number INTERFACE SYSTEM Refer to clinic/hospital department * (ABNORMAL) CVR ONLY, CKMB/CK (04/17/2005 7:39 PM DIRECTOR HYDROGEN STORAGE ENGINEERING) CKMB 7.5(AA) <=3.8 ng/mL INTERFACE SYSTEM Comment:Persistent abnormal result CKMB INTERP See Below INTERFAC E SYSTEM Comment:Elevated CKMB,consis tent with Myocardial Injury CK 339(H) 10 - 145 U/L INTERFACE SYSTEM CARDIAC RELATIVE INDEX 2.2 <=4.0 INTERFACE SYSTEM 04/17/2005 7:39 PM DIRECTOR HYDROGEN STORAGE ENGINEERING Max Jhaveri MD CHEMISTRY ORDERABLES Final Re sult Performing Organization Address [facility] Phone Number INTERFACE SYSTEM Refer to clinic/hospital department * (ABNORMAL) POC GLUCOSE (04/17/2005 4:50 PM DIRECTOR HYDROGEN STORAGE ENGINEERING) GLUCOSE POC 228(H) 65 - 109 mg/dL INTERFACE SYSTEM 04/17/2005 4:50 PM DIRECTOR HYDROGEN STORAGE ENGINEERING Cirilo Buenrostro MD POINT OF CARE TESTING Fin al Result Performing Organization Address [facility] de Phone Number INTERFACE SYSTEM Refer to clinic/hospital department * (ABNORMAL) POC GLUCOSE (04/17/2005 11:06 AM DIRECTOR HYDROGEN STORAGE ENGINEERING) GLUCOSE POC 141(H) 65 - 109 mg/dL INTERFACE SYSTEM 04/17/2005 11:0 6 AM DIRECTOR HYDROGEN STORAGE ENGINEERING Cirilo Buenrostro MD POINT OF CARE TESTING Fin al Result Performing Organization Address [facility] de Phone Number INTERFACE SYSTEM Refer to clinic/hospital department * (ABNORMAL) POC GLUCOSE (04/17/2005 6:13 AM DIRECTOR HYDROGEN STORAGE ENGINEERING) GLUCOSE POC 115(H) 65 - 109 mg/dL INTERFACE SYSTEM 04/17/2005 6:13 AM DIRECTOR HYDROGEN STORAGE ENGINEERING Cirilo Buenrostro MD POINT OF CARE TESTING Fin al Result Performing Organization Address City/[facility] de Phone Number INTERFACE SYSTEM Refer to clinic/hospital department * POC GLUCOSE (04/17/2005 4:45 AM DIRECTOR HYDROGEN STORAGE ENGINEERING) GLUCOSE POC 99 65 - 109 mg/dL INTERFACE SYSTEM 04/17/2005 4:45 AM DIRECTOR HYDROGEN STORAGE ENGINEERING Cirilo Buenrostro MD POINT OF CARE TESTING Fin al Result Performing Organization Address [facility] Phone Number INTERFACE SYSTEM Refer to clinic/hospital department * (ABNORMAL) CBC WITH DIFFERENTIAL (04/17/2005 4:23 AM DIRECTOR HYDROG[employer] STORAGE ENGINEERING) NEUTROPHILS 83(H) 45 - 70 % INTERFAC E SYSTEM LYMPHOCYTES 7(L) 16 - 45 % INTERFAC E SYSTEM MONOCYTES 9 3 - 13 % INTERFACE SYSTEM EOSINOPHILS 0 0 - 7 % INTERFAC E SYSTEM BASOPHILS 0 0 - 2 % INTERFACE SYSTEM NEUTROPHIL ABSOLUTE 7.03(H) 1.90 - 7.00 K/uL INTERFACE SYSTEM LYMPHOCYTE ABSOLUTE 0.61(L) 0.70 - 4.50 K/uL INTERFACE SYSTEM MONOCYTE ABSOLUTE 0.79 0.10 - 1.30 K/uL INTERFACE SYSTEM EOSINOPHIL ABSOLUTE 0.02 0.00 - 0.70 K/uL INTERFACE SYSTEM BASOPHILS ABSOLUTE 0.01 0.00 - 0.20 K/uL INTERFACE SYSTEM 04/17/2005 4:23 AM DIRECTOR HYDROG[employer] STORAGE ENGINEERING Max Jhaveri MD HEMATOLOGY ORDERABLES Final R esult Performing Organization Address [facility] de Phone Number INTERFACE SYSTEM Refer to clinic/hospital department * (ABNORMAL) CBC WITH DIFFERENTIAL (04/17/2005 4:23 AM DIRECTOR HYDROGEN STORAGE ENGINEERING) WBC 8.5 4.0 - 9.8 K/uL INTERFACE SYSTEM RBC 3.81(L) 3.90 - 4.90 M/uL INTERFACE SYSTEM HEMOGLOBIN 11.5(L) 11.8 - 14.8 g/dL INTERFACE SYSTEM HEMATOCRIT 34.1(L) 35.5 - 44.0 % INTERFACE SYSTEM MCV 89.5 82.0 - 99.0 fL INTERFACE SYSTEM MCH 30.2 27.2 - 32.6 pg INTERFACE SYSTEM MCHC 33.7 31.5 - 35.5 % INTERFACE SYSTEM RDW 13.9 11.5 - 14.5 % INTERFACE SYSTEM RDW-STDEV 45.8 37.1 - 48.7 fL INTERFACE SYSTEM PLATELETS 123(L) 140 - 350 K/uL INTERFACE SYSTEM MPV 10.9 9.3 - 12.4 fL INTERFACE SYSTEM 04/17/2005 4:23 AM DIRECTOR HYDROGEN STORAGE ENGINEERING Max Jhaveri MD HEMATOLOGY ORDERABLES Final R esult Performing Organization Address [facility] Phone Number INTERFACE SYSTEM Refer to clinic/hospital department * MAGNESIUM LEVEL (04/17/2005 4:23 AM DIRECTOR HYDROGEN STORAGE ENGINEERING) MAGNESIUM 1.8 1.5 - 2.5 mg/dL INTERFACE SYSTEM 04/17/2005 4:23 AM DIRECTOR HYDROGEN STORAGE ENGINEERING Max Jhaveri MD CHEMISTRY ORDERABLES Final Re sult Performing Organization Address [facility] Phone Number INTERFACE SYSTEM Refer to clinic/hospital department * (ABNORMAL) PT AND APTT (04/17/2005 4:23 AM DIRECTOR HYDROGEN STORAGE ENGINEERING) PROTIME 16.4(H) 12.7 - 15.1 Seconds INTERFACE SYSTEM INR 1.2(H) 0.9 - 1.1 INTERFACE SYSTEM Comment: INR Therapeutic Range: Adult: 2.0 - 3.0 for pulmonary embolism or prophylaxis against venous thrombosis or systemic embolization. 2.0 - 3.0 for patients with tissue heart valves. 2.5 - 3.5 for patients with mechanical heart valves or post ID. Pediatric (12 years and under): 1.5 - 3.0 Although the target range in children is not well established , INR values of 1.5 - 3.0 are recommended for most patients. Higher values have been used in children with prosthetic cardiac valves and hereditary clotting disorders. (<3 days) therapeutic ranges have not been established. PTT 34.3 24.4 - 36.4 Seconds INTERFACE SYSTEM Comment: PTT Therapeutic Range: Heparin Level PTT (seconds) <0.10 units/mL <53 0.10 - 0.30 units/mL 53 - 67 0.30 - 0.70 units/mL* 67 - 95* 0.70 - 1.00 units/mL 95 - 116 *corresponds to therapeutic range for unfractionated heparin 04/17/2005 4:23 AM DIRECTOR HYDROG[employer] STORAGE ENGINEERING Max Jhaveri MD HEMATOLOGY ORDERABLES Final R esult Performing Organization Address City/[facility]/ZIP Co de Phone Number INTERFACE SYSTEM Refer to clinic/hospital department * (ABNORMAL) COMPREHENSIVE METABOLIC PANEL (04/17/2005 4:23 AM DIRECTOR HYDROGEN STORAGE ENGINEERING) GLUCOSE 101 65 - 109 mg/dL INTERFACE SYSTEM CREATININE 0.5 0.4 - 1.2 mg/dL INTERFACE SYSTEM CALCIUM 7.6(L) 8.6 - 10.2 mg/dL INTERFACE SYSTEM AST 37(H) 12 - 32 U/L INTERFACE SYSTEM ALKALINE PHOSPHATASE 39 35 - 104 U/L INTERFACE SYSTEM BILIRUBIN TOTAL 0.4 0.2 - 1.0 mg/dL INTERFACE SYSTEM ALBUMIN 3.3(L) 3.4 - 4.8 g/dL INTERFACE SYSTEM TOTAL PROTEIN 5.1(L) 6.3 - 8.6 g/dL INTERFACE SYSTEM ALT 16 0 - 31 U/L INTERFACE SYSTEM BUN 7 6 - 20 mg/dL INTERFACE SYSTEM SODIUM 135 135 - 145 mmol/L INTERFACE SYSTEM POTASSIUM 4.3 3.5 - 4.9 mmol/L INTERFACE SYSTEM CHLORIDE 105 96 - 108 mmol/L INTERFACE SYSTEM CO2 23 22 - 30 mmol/L INTERFACE SYSTEM 04/17/2005 4:23 AM DIRECTOR HYDROG[employer] STORAGE ENGINEERING Max Jhaveri MD CHEMISTRY ORDERABLES Final Re sult Performing Organization Address City/[facility]/ZIP Co de Phone Number INTERFACE SYSTEM Refer to clinic/hospital department * (ABNORMAL) POC GLUCOSE (04/17/2005 1:59 AM DIRECTOR HYDROGEN STORAGE ENGINEERING) GLUCOSE POC 134(H) 65 - 109 mg/dL INTERFACE SYSTEM 04/17/2005 1:59 AM DIRECTOR HYDROGEN STORAGE ENGINEERING Cirilo Buenrostro MD POINT OF CARE TESTING Fin al Result Performing Organization Address [facility] Phone Number INTERFACE SYSTEM Refer to clinic/hospital department * (ABNORMAL) HEMOGLOBIN AND HEMATOCRIT (04/17/2005 1:00 AM DIRECTOR HYDROG[employer] STORAGE ENGINEERING) HEMOGLOBIN 11.8 11.8 - 14.8 g/dL INTERFACE SYSTEM HEMATOCRIT 35.3(L) 35.5 - 44.0 % INTERFACE SYSTEM 04/17/2005 1:00 AM DIRECTOR HYDROGEN STORAGE ENGINEERING Max Jhaveri MD HEMATOLOGY ORDERABLES Final R esult Performing Organization Address [facility] Phone Number INTERFACE SYSTEM Refer to clinic/hospital department * POTASSIUM LEVEL (04/17/2005 1:00 AM DIRECTOR HYDROGEN STORAGE ENGINEERING) Pathologist [facility] POTASSIUM 4.1 3.5 - 4.9 mmol/L INTERFACE SYSTEM 04/17/2005 1:00 AM DIRECTOR HYDROGEN STORAGE ENGINEERING Max Jhaveri MD CHEMISTRY ORDERABLES Final Re sult Performing Organization Address [facility] Phone Number INTERFACE SYSTEM Refer to clinic/hospital department * (ABNORMAL) CVR ONLY, CKMB/CK (04/17/2005 1:00 AM DIRECTOR HYDROG[employer] STORAGE ENGINEERING) CKMB 22.5(AA) <=3.8 ng/mL INTERFACE SYSTEM Comment:Persistent abnormal result CKMB INTERP See Below INTERFAC E SYSTEM Comment:Elevated CKMB,consis tent with Myocardial Injury CK 325(H) 10 - 145 U/L INTERFACE SYSTEM CARDIAC RELATIVE INDEX 6.9(H) <=4.0 INTERFACE SYSTEM 04/17/2005 1:00 AM DIRECTOR HYDROGEN STORAGE ENGINEERING Max Jhaveri MD CHEMISTRY ORDERABLES Final Re sult Performing Organization Address [facility]/ZIP Co de Phone Number INTERFACE SYSTEM Refer to clinic/hospital department * (ABNORMAL) POC GLUCOSE (04/17/2005 12:53 AM DIRECTOR HYDROGEN STORAGE ENGINEERING) GLUCOSE POC 145(H) 65 - 109 mg/dL INTERFACE SYSTEM 04/17/2005 12:5 3 AM DIRECTOR HYDROGEN STORAGE ENGINEERING Cirilo Buenrostro MD POINT OF CARE TESTING Fin al Result Performing Organization Address City/[facility] de Phone Number INTERFACE SYSTEM Refer to clinic/hospital department * (ABNORMAL) POC GLUCOSE (04/16/2005 11:21 PM DIRECTOR HYDROGEN STORAGE ENGINEERING) GLUCOSE POC 160(H) 65 - 109 mg/dL INTERFACE SYSTEM 04/16/2005 11:2 1 PM DIRECTOR HYDROGEN STORAGE ENGINEERING Cirilo Buenrostro MD POINT OF CARE TESTING Fin al Result Performing Organization Address [facility] de Phone Number INTERFACE SYSTEM Refer to clinic/hospital department * (ABNORMAL) POC GLUCOSE (04/16/2005 10:17 PM DIRECTOR HYDROGEN STORAGE ENGINEERING) GLUCOSE POC 159(H) 65 - 109 mg/dL INTERFACE SYSTEM 04/16/2005 10:1 7 PM DIRECTOR HYDROGEN STORAGE ENGINEERING Cirilo Buenrostro MD POINT OF CARE TESTING Fin al Result Performing Organization Address [facility] de Phone Number INTERFACE SYSTEM Refer to clinic/hospital department * (ABNORMAL) POC GLUCOSE (04/16/2005 9:29 PM DIRECTOR HYDROGEN STORAGE ENGINEERING) GLUCOSE POC 178(H) 65 - 109 mg/dL INTERFACE SYSTEM 04/16/2005 9:29 PM DIRECTOR HYDROGEN STORAGE ENGINEERING Cirilo Buenrostro MD POINT OF CARE TESTING Fin al Result Performing Organization Address City/[facility] de Phone Number INTERFACE SYSTEM Refer to clinic/hospital department * (ABNORMAL) POC RT, BLOOD GASES (04/16/2005 8:45 PM DIRECTOR HYDROGEN STORAGE ENGINEERING) PH ARTERIAL 7.40 7.35 - 7.45 INTERFACE SYSTEM PCO2 ARTERIAL 37 35 - 48 mm Hg INTERFACE SYSTEM PO2 ARTERIAL 85 83 - 108 mm Hg INTERFACE SYSTEM O2 SAT EST ABG POC 96 95 - 99 % INTERFACE SYSTEM PATIENT'S TEMPERATURE 37.0 Degree C INTERFACE SYSTEM BASE EXCESS ABG -1.6 -2.0 - 3.0 mmol/L INTERFACE SYSTEM HCO3 ARTERIAL 23 22 - 26 mmol/L INTERFACE SYSTEM SODIUM POC 130(L) 135 - 145 mmol/L INTERFACE SYSTEM POTASSIUM POC 3.6 3.5 - 4.9 mmol/L INTERFACE SYSTEM CALICUM IONIZED, WHOLE BLOOD 4.29(L) 4.76 - 5.16 mg/dL INTERFACE SYSTEM HEMATOCRIT POC 33.0(L) 35.5 - 44.0 % INTERFACE SYSTEM FIO2 35 INTERFACE SYSTEM OXYGEN MODE SIMV PSV 8 INTERFACE SYSTEM PEEP POC 5 INTERFACE SYSTEM COMMENT, GASES POC RN AWARE INTERFACE SYSTEM 04/16/2005 8:45 PM DIRECTOR HYDROGEN STORAGE ENGINEERING Cirilo Buenrostro MD CHEMISTRY ORDERABLES Sommer l Result Performing Organization Address City/[facility] Co de Phone Number INTERFACE SYSTEM Refer to clinic/hospital department * (ABNORMAL) POC GLUCOSE (04/16/2005 8:26 PM DIRECTOR HYDROGEN STORAGE ENGINEERING) GLUCOSE POC 190(H) 65 - 109 mg/dL INTERFACE SYSTEM 04/16/2005 8:26 PM DIRECTOR HYDROGEN STORAGE ENGINEERING Cirilo Buenrostro MD POINT OF CARE TESTING Fin al Result Performing Organization Address [facility] de Phone Number INTERFACE SYSTEM Refer to clinic/hospital department * POTASSIUM LEVEL (04/16/2005 8:00 PM DIRECTOR HYDROGEN STORAGE ENGINEERING) POTASSIUM 3.8 3.5 - 4.9 mmol/L INTERFACE SYSTEM Comment: Testing was performed on Serum. Specimen of choice is [place] Heparinized Plasma. Serum Potassium Reference Range: 5 years - 150 years 3.5 - 5.0 mmol/L 1 year - 5 years 3.4 - 4.7 mmol/L 15 days - 1 year 4.1 - 5.3 mmol/L 0 days - 15 days 3.7 - 5.9 mmol/L 04/16/2005 8:00 PM DIRECTOR HYDROGEN STORAGE ENGINEERING Max Jhaveri MD CHEMISTRY ORDERABLES Final Re sult Performing Organization Address City/[facility] Phone Number INTERFACE SYSTEM Refer to clinic/hospital department * MAGNESIUM LEVEL (04/16/2005 8:00 PM DIRECTOR HYDROGEN STORAGE ENGINEERING) MAGNESIUM 2.1 1.5 - 2.5 mg/dL INTERFACE SYSTEM 04/16/2005 8:00 PM DIRECTOR HYDROGEN STORAGE ENGINEERING Max Jhaveri MD CHEMISTRY ORDERABLES Final Re sult Performing Organization Address [facility] Phone Number INTERFACE SYSTEM Refer to clinic/hospital department * (ABNORMAL) POC GLUCOSE (04/16/2005 7:51 PM DIRECTOR HYDROGEN STORAGE ENGINEERING) GLUCOSE POC 186(H) 65 - 109 mg/dL INTERFACE SYSTEM 04/16/2005 7:51 PM DIRECTOR HYDROGEN STORAGE ENGINEERING Cirilo Buenrostro MD POINT OF CARE TESTING Fin al Result Performing Organization Address [facility] Phone Number INTERFACE SYSTEM Refer to clinic/hospital department * (ABNORMAL) POC GLUCOSE (04/16/2005 6:31 PM DIRECTOR HYDROGEN STORAGE ENGINEERING) GLUCOSE POC 167(H) 65 - 109 mg/dL INTERFACE SYSTEM 04/16/2005 6:31 PM DIRECTOR [employer]ORAGE ENGINEERING Cirilo Buenrostro MD POINT OF CARE TESTING Fin al Result Performing Organization Address [facility] de Phone Number INTERFACE SYSTEM Refer to clinic/hospital department * (ABNORMAL) POC GLUCOSE (04/16/2005 5:36 PM DIRECTOR [employer]INEER[employer]) GLUCOSE POC 148(H) 65 - 109 mg/dL INTERFACE SYSTEM 04/16/2005 5:36 PM DIRECTOR [employer]INEER[employer] Cirilo Buenrostro MD POINT OF CARE TESTING Fin al Result Performing Organization Address [place]/[facility] de Phone Number INTERFACE SYSTEM Refer to clinic/hospital department * (ABNORMAL) POC GLUCOSE (04/16/2005 4:19 PM DIRECTOR [employer]INEERING) GLUCOSE POC 143(H) 65 - 109 mg/dL INTERFACE SYSTEM 04/16/2005 4:19 PM DIRECTOR [employer]INEERING Cirilo Buenrostro MD POINT OF CARE TESTING Fin al Result Performing Organization Address [facility] de Phone Number INTERFACE SYSTEM Refer to clinic/hospital department * (ABNORMAL) POC RT, BLOOD GASES (04/16/2005 4:05 PM DIRECTOR [employer]) PH ARTERIAL 7.44 7.35 - 7.45 INTERFACE SYSTEM PCO2 ARTERIAL 33(L) 35 - 48 mm Hg INTERFACE SYSTEM PO2 ARTERIAL 70(L) 83 - 108 mm Hg INTERFACE SYSTEM O2 SAT EST ABG POC 94(L) 95 - 99 % INTERFACE SYSTEM PATIENT'S TEMPERATURE 37.0 Degree C INTERFACE SYSTEM BASE EXCESS ABG -1.3 -2.0 - 3.0 mmol/L INTERFACE SYSTEM HCO3 ARTERIAL 22 22 - 26 mmol/L INTERFACE SYSTEM SODIUM POC 133(L) 135 - 145 mmol/L INTERFACE SYSTEM POTASSIUM POC 4.2 3.5 - 4.9 mmol/L INTERFACE SYSTEM CALICUM IONIZED, WHOLE BLOOD 4.49(L) 4.76 - 5.16 mg/dL INTERFACE SYSTEM HEMATOCRIT POC 33.0(L) 35.5 - 44.0 % INTERFACE SYSTEM FIO2 60 INTERFACE SYSTEM OXYGEN MODE SIMV PS 8 INTERFAC E SYSTEM PEEP POC 5 INTERFACE SYSTEM COMMENT, GASES POC RN NOTIFIED INTERFACE SYSTEM 04/16/2005 4:05 PM DIRECTOR [employer] Cirilo Buenrostro MD CHEMISTRY ORDERABLES Sommer l Result Performing Organization Address [place]/[facility] de Phone Number INTERFACE SYSTEM Refer to clinic/hospital department * (ABNORMAL) CVR ONLY, CKMB/CK (04/16/2005 3:57 PM DIRECTOR [employer]ER[employer]) CKMB 28.2(AA) <=3.8 ng/mL INTERFACE SYSTEM Comment:Results called to ba rb at 04/16/2005 4:50 PM and read back verified. CKMB INTERP See Below INTERFAC E SYSTEM Comment:Elevated CKMB,consis tent with Myocardial Injury. CK 234(H) 10 - 145 U/L INTERFACE SYSTEM CARDIAC RELATIVE INDEX 12.0(H) <=4.0 INTERFACE SYSTEM 04/16/2005 3:57 PM DIRECTOR [employer]INEERING Max Jhaveri MD CHEMISTRY ORDERABLES Final Re sult Performing Organization Address [facility] Phone Number INTERFACE SYSTEM Refer to clinic/hospital department * (ABNORMAL) CBC WITH DIFFERENTIAL (04/16/2005 3:57 PM DIRECTOR [employer]ER[employer]) NEUTROPHILS 77(H) 45 - 70 % INTERFAC E SYSTEM LYMPHOCYTES 12(L) 16 - 45 % INTERFAC E SYSTEM MONOCYTES 9 3 - 13 % INTERFACE SYSTEM EOSINOPHILS 2 0 - 7 % INTERFAC E SYSTEM BASOPHILS 0 0 - 2 % INTERFACE SYSTEM NEUTROPHIL ABSOLUTE 6.39 1.90 - 7.00 K/uL INTERFACE SYSTEM LYMPHOCYTE ABSOLUTE 1.02 0.70 - 4.50 K/uL INTERFACE SYSTEM MONOCYTE ABSOLUTE 0.78 0.10 - 1.30 K/uL INTERFACE SYSTEM EOSINOPHIL ABSOLUTE 0.14 0.00 - 0.70 K/uL INTERFACE SYSTEM BASOPHILS ABSOLUTE 0.01 0.00 - 0.20 K/uL INTERFACE SYSTEM 04/16/2005 3:57 PM DIRECTOR [employer]ER[employer] Max Jhaveri MD HEMATOLOGY ORDERABLES Final R esult Performing Organization Address [facility] de Phone Number INTERFACE SYSTEM Refer to clinic/hospital department * (ABNORMAL) CBC WITH DIFFERENTIAL (04/16/2005 3:57 PM DIRECTOR [employer]) WBC 8.3 4.0 - 9.8 K/uL INTERFACE SYSTEM RBC 4.03 3.90 - 4.90 M/uL INTERFACE SYSTEM HEMOGLOBIN 12.3 11.8 - 14.8 g/dL INTERFACE SYSTEM HEMATOCRIT 36.3 35.5 - 44.0 % INTERFACE SYSTEM MCV 90.1 82.0 - 99.0 fL INTERFACE SYSTEM MCH 30.5 27.2 - 32.6 pg INTERFACE SYSTEM MCHC 33.9 31.5 - 35.5 % INTERFACE SYSTEM RDW 13.7 11.5 - 14.5 % INTERFACE SYSTEM RDW-STDEV 45.3 37.1 - 48.7 fL INTERFACE SYSTEM PLATELETS 119(L) 140 - 350 K/uL INTERFACE SYSTEM MPV 10.8 9.3 - 12.4 fL INTERFACE SYSTEM 04/16/2005 3:57 PM DIRECTOR [employer]INEER[employer] Max Jhaveri MD HEMATOLOGY ORDERABLES Final R esult Performing Organization Address [place]/[facility] Phone Number INTERFACE SYSTEM Refer to clinic/hospital department * (ABNORMAL) PT AND APTT (04/16/2005 3:57 PM DIRECTOR [employer]ER[employer]) PROTIME 17.9(H) 12.7 - 15.1 Seconds INTERFACE SYSTEM INR 1.4(H) 0.9 - 1.1 INTERFACE SYSTEM Comment: INR Therapeutic Range: Adult: 2.0 - 3.0 for pulmonary embolism or prophylaxis against venous thrombosis or systemic embolization. 2.0 - 3.0 for patients with tissue heart valves. 2.5 - 3.5 for patients with mechanical heart valves or post ID. Pediatric (12 years and under): 1.5 - 3.0 Although the target range in children is not well established , INR values of 1.5 - 3.0 are recommended for most patients. Higher values have been used in children with prosthetic cardiac valves and hereditary clotting disorders. (<3 days) therapeutic ranges have not been established. PTT 43.8(H) 24.4 - 36.4 Seconds INTERFACE SYSTEM Comment: PTT Therapeutic Range: Heparin Level PTT (seconds) <0.10 units/mL <53 0.10 - 0.30 units/mL 53 - 67 0.30 - 0.70 units/mL* 67 - 95* 0.70 - 1.00 units/mL 95 - 116 *corresponds to therapeutic range for unfractionated heparin 04/16/2005 3:57 PM DIRECTOR [employer] ENGINEERING Max Jhaveri MD HEMATOLOGY ORDERABLES Final R esult Performing Organization Address [place]/[facility] de Phone Number INTERFACE SYSTEM Refer to clinic/hospital department * MAGNESIUM LEVEL (04/16/2005 3:57 PM DIRECTOR [employer]INEERING) MAGNESIUM 1.9 1.5 - 2.5 mg/dL INTERFACE SYSTEM 04/16/2005 3:57 PM DIRECTOR [employer]ERING Max Jhaveri MD CHEMISTRY ORDERABLES Final Re sult Performing Organization Address [facility] Phone Number INTERFACE SYSTEM Refer to clinic/hospital department * (ABNORMAL) BASIC METABOLIC PANEL (04/16/2005 3:57 PM DIRECTOR [employer]INEERING) GLUCOSE 142(H) 65 - 109 mg/dL INTERFACE SYSTEM CREATININE 0.4 0.4 - 1.2 mg/dL INTERFACE SYSTEM BUN 7 6 - 20 mg/dL INTERFACE SYSTEM SODIUM 136 135 - 145 mmol/L INTERFACE SYSTEM POTASSIUM 4.2 3.5 - 4.9 mmol/L INTERFACE SYSTEM CHLORIDE 106 96 - 108 mmol/L INTERFACE SYSTEM CO2 22 22 - 30 mmol/L INTERFACE SYSTEM CALCIUM 7.6(L) 8.6 - 10.2 mg/dL INTERFACE SYSTEM Comment:Significant change f rom prior result, correlate clinically and redraw if necessary. 04/16/2005 3:57 PM DIRECTOR [employer]INEERING Max Jhaveri MD CHEMISTRY ORDERABLES Final Re sult Performing Organization Address [facility] Phone Number INTERFACE SYSTEM Refer to clinic/hospital department * LIPID PANEL (04/16/2005 6:10 AM DIRECTOR [employer]ERING) LIPID PANEL COMMENT See below INTERFACE SYSTEM Comment: Adult ATP III Classifications: Cholesterol (mg/dL) Triglyceride (mg/dL) Desirable <200 Normal <150 Borderline 200 - 239 Borderline High 150 - 199 High >=240 High 200 - 499 Very High >=500 HDL Cholesterol (mg/dL) LDL (mg/dL) Low (increased risk) <40 Optimal <100 High (reduced risk) >=60 Near or above optimal 100 - 129 Borderline 130 - 159 High 160 - 189 Very High >=190 LDL calculation is not accurate if Triglycerides are greater than 400 mg /dL Pediatric NCEP Classifications: Cholesterol(<20 years),(mg/dL) Triglyceride Desirable <170 Pediatric classification Borderline 170 - 199 not defined. High >=200 HDL (<5 years) LDL (mg/dL) No Reference Range Established Desirable <110 Borderline 110 - 129 High >=130 CHOLESTEROL 153 100 - 199 mg/dL INTERFACE SYSTEM TRIGLYCERIDE 99 10 - 149 mg/dL INTERFACE SYSTEM HDL 59 40 - 59 mg/dL INTERFACE SYSTEM LDL CALCULATED 74 <=99 mg/dL INTERFACE SYSTEM CHOL/HDL RATIO 2.6 2.0 - 5.0 INTER FACE SYSTEM Comment:See interpretive sabina a section for risk classifications. 04/16/2005 6:10 AM DIRECTOR [employer]INEERING Cirilo Buenrostro MD CHEMISTRY ORDERABLES Sommer l Result Performing Organization Address [facility] Phone Number INTERFACE SYSTEM Refer to clinic/hospital department * (ABNORMAL) URINALYSIS (04/15/2005 4:23 PM DIRECTOR [employer]ER[employer]) COLOR UA Yellow INTERFACE SYSTEM CLARITY UA Clear Clear INTERFACE SYSTEM SPECIFIC GRAVITY UA 1.035 1.001 - 1.035 INTERFACE SYSTEM PH UA 6.5 5.0 - 8.0 INTERFACE SYSTEM LEUKOCYTE ESTERASE UA Negative Negative INTERFACE SYSTEM NITRITE UA Negative Negative INTERFACE SYSTEM PROTEIN UA Trace(A) Negative INTERFACE SYSTEM GLUCOSE UA 3+(A) Negative INTERFACE SYSTEM KETONES UA Negative Negative INTERFACE SYSTEM UROBILINOGEN UA <1 <1 mg/dL INTE RFACE SYSTEM BILIRUBIN UA Negative Negative INTERFA CE SYSTEM BLOOD UA 1+(A) Negative INTERFACE SYSTEM WBC UA 1 0 - 5 /HPF INTERFACE SYSTEM RBC UA 1 0 - 4 /HPF INTERFACE SYSTEM Comment:Verified by repeat a nalysis. EPITHELIAL CELLS, URINE 0-2 /HPF INTERFACE SYSTEM YEAST Rare(A) None Seen /HPF INTERFACE SYSTEM 04/15/2005 4:23 PM DIRECTOR [employer]INEERING Cirilo Buenrostro MD URINE ORDERABLES Final Re sult Performing Organization Address [facility] Phone Number INTERFACE SYSTEM Refer to clinic/hospital department * BASIC METABOLIC PANEL PLUS (04/15/2005 12:40 PM DIRECTOR [employer]INEERING) AST 21 12 - 32 U/L INTERFACE SYSTEM ALKALINE PHOSPHATASE 65 35 - 104 U/L INTERFACE SYSTEM BILIRUBIN TOTAL 0.3 0.2 - 1.0 mg/dL INTERFACE SYSTEM ALBUMIN 4.0 3.4 - 4.8 g/dL INTERFACE SYSTEM TOTAL PROTEIN 7.3 6.3 - 8.6 g/dL INTERFACE SYSTEM ALT 20 0 - 31 U/L INTERFACE SYSTEM 04/15/2005 12:4 0 PM DIRECTOR [employer] ENGINEERING Cirilo Buenrostro MD CHEMISTRY ORDERABLES Sommer l Result Performing Organization Address [facility] de Phone Number INTERFACE SYSTEM Refer to clinic/hospital department * CBC WITH DIFFERENTIAL (04/15/2005 12:40 PM DIRECTOR HY[employer] ENGINEERING) NEUTROPHILS 56 45 - 70 % INTERFAC E SYSTEM LYMPHOCYTES 30 16 - 45 % INTERFAC E SYSTEM MONOCYTES 9 3 - 13 % INTERFACE SYSTEM EOSINOPHILS 4 0 - 7 % INTERFAC E SYSTEM BASOPHILS 1 0 - 2 % INTERFACE SYSTEM NEUTROPHIL ABSOLUTE 2.07 1.90 - 7.00 K/uL INTERFACE SYSTEM LYMPHOCYTE ABSOLUTE 1.11 0.70 - 4.50 K/uL INTERFACE SYSTEM MONOCYTE ABSOLUTE 0.33 0.10 - 1.30 K/uL INTERFACE SYSTEM EOSINOPHIL ABSOLUTE 0.16 0.00 - 0.70 K/uL INTERFACE SYSTEM BASOPHILS ABSOLUTE 0.02 0.00 - 0.20 K/uL INTERFACE SYSTEM 04/15/2005 12:4 0 PM DIRECTOR [employer]INEERING Cirilo Buenrostro MD HEMATOLOGY ORDERABLES Fin al Result Performing Organization Address [facility] de Phone Number INTERFACE SYSTEM Refer to clinic/hospital department * (ABNORMAL) CBC WITH DIFFERENTIAL (04/15/2005 12:40 PM DIRECTOR HY[employer]INEERING) WBC 3.7(L) 4.0 - 9.8 K/uL INTERFACE SYSTEM RBC 4.27 3.90 - 4.90 M/uL INTERFACE SYSTEM HEMOGLOBIN 13.2 11.8 - 14.8 g/dL INTERFACE SYSTEM HEMATOCRIT 39.5 35.5 - 44.0 % INTERFACE SYSTEM MCV 92.5 82.0 - 99.0 fL INTERFACE SYSTEM MCH 30.9 27.2 - 32.6 pg INTERFACE SYSTEM MCHC 33.4 31.5 - 35.5 % INTERFACE SYSTEM RDW 13.1 11.5 - 14.5 % INTERFACE SYSTEM RDW-STDEV 44.3 37.1 - 48.7 fL INTERFACE SYSTEM PLATELETS 200 140 - 350 K/uL INTERFACE SYSTEM MPV 11.2 9.3 - 12.4 fL INTERFACE SYSTEM 04/15/2005 12:4 0 PM DIRECTOR [employer]INEERING Cirilo Buenrostro MD HEMATOLOGY ORDERABLES Fin al Result Performing Organization Address [place]/[facility] de Phone Number INTERFACE SYSTEM Refer to clinic/hospital department * PT AND APTT (04/15/2005 12:40 PM DIRECTOR HY[employer] ENGINEERING) PROTIME 14.8 12.7 - 15.1 Seconds INTERFACE SYSTEM INR 1.1 0.9 - 1.1 INTERFACE SYSTEM Comment: INR Therapeutic Range: Adult: 2.0 - 3.0 for pulmonary embolism or prophylaxis against venous thrombosis or systemic embolization. 2.0 - 3.0 for patients with tissue heart valves. 2.5 - 3.5 for patients with mechanical heart valves or post ID. Pediatric (12 years and under): 1.5 - 3.0 Although the target range in children is not well established , INR values of 1.5 - 3.0 are recommended for most patients. Higher values have been used in children with prosthetic cardiac valves and hereditary clotting disorders. (<3 days) therapeutic ranges have not been established. PTT 30.1 24.4 - 36.4 Seconds INTERFACE SYSTEM Comment: PTT Therapeutic Range: Heparin Level PTT (seconds) <0.10 units/mL <53 0.10 - 0.30 units/mL 53 - 67 0.30 - 0.70 units/mL* 67 - 95* 0.70 - 1.00 units/mL 95 - 116 *corresponds to therapeutic range for unfractionated heparin 04/15/2005 12:4 0 PM DIRECTOR [employer]INEERING Cirilo Buenrostro MD HEMATOLOGY ORDERABLES Fin al Result Performing Organization Address [facility] de Phone Number INTERFACE SYSTEM Refer to clinic/hospital department * (ABNORMAL) BASIC METABOLIC PANEL (04/15/2005 12:40 PM DIRECTOR [employer]INEERING) GLUCOSE 145(H) 65 - 109 mg/dL INTERFACE SYSTEM CREATININE 0.6 0.4 - 1.2 mg/dL INTERFACE SYSTEM CALCIUM 9.1 8.6 - 10.2 mg/dL INTERFACE SYSTEM BUN 11 6 - 20 mg/dL INTERFACE SYSTEM SODIUM 140 135 - 145 mmol/L INTERFACE SYSTEM POTASSIUM 3.9 3.5 - 4.9 mmol/L INTERFACE SYSTEM CHLORIDE 104 96 - 108 mmol/L INTERFACE SYSTEM CO2 25 22 - 30 mmol/L INTERFACE SYSTEM 04/15/2005 12:4 0 PM DIRECTOR [employer]AGE [employer]INEERING us Cirilo Buenrostro MD CHEMISTRY ORDERABLES Sommer avila Result INTERFACE SYSTEM Refer to clinic/hospital department documented in this encounter Visit Diagnoses Diagnosis Coronary atherosclerosis of viejas coronary artery- Primary documented in this encounter
--- NOTE | 2024-05-17 15:03 | ECG_ITS ---
Test Date: 2024-05-17 16:24:19 Measurements Intervals [place] Rate: 56 P: -11 GA: 152 QRS: 6 QRSD: 156 T: 46 QT: 499 QTc: 485 Interpretive Statements SINUS BRADYCARDIA RIGHT BUNDLE BRANCH BLOCK CONSIDER ANTEROLATERAL INFARCT, AGE INDETERMINATE INFERIOR INFARCT, AGE INDETERMINATE HIGH LATERAL INFARCT, AGE INDETERMINATE BASELINE WANDER- I, II, AVR, AVL, AVF, V2-V6 ABNORMAL ECG Compared to ECG 03/10/2024 15:00:45 HEART RATE HAS DECREASED Electronically Signed On 05-17-2024 17:24:53 SUPPRESSION CREW LEADER by José Antonio Rodgers D.O.
--- OUTSIDE RECORDS SUMMARY | 2024-05-17 15:03 | XMS_ITS | Patient Health Summary ---
Author Organization [facility] Address [address] [facility] [place] [address] Care Team Providers Care Oil Heater Operator Name Role Phone Franco Randolph MD Unavailable [phone] Ernestina Luevano MD Primary Care Provider + Cirilo Buenrostro MD Unavailable [phone] Note from [facility],non-owned Affiliates and Associated Physician Practices is amultiple site organization consisting of ambulatory clinics and hospital sitesin [place], [place], [place] and [place]. This disclosure is being madepursuant to the Care Everywhere program and may not contain all information available regarding this patient. Last updated 17.[facility] Allergies No known active allergies Medications * Be aware that medications may not be up to date on this document. Alwaysverify current medications with the patient. * enalapril (VASOTEC) 10 MG tablet(Started 08/07/2017) Take 1 (one) tablet by mouth once daily * carvedilol (COREG) 25 MG tablet(Started 08/07/2017) Take 1 (one) tablet by mouth 2 times daily with morning and evening meal * NOVOLOG FLEXPEN pen(Started 06/14/2017) Inject 25 (twenty five) Units subcutaneously 3 times daily before meals * rosuvastatin (CRESTOR) 10 MG tablet(Started 02/07/2019) Take 1 (one) tablet by mouth once daily 1 refill left * pantoprazole EC (PROTONIX) 40 MG tablet(Started 07/03/2020) Take 1 (one) tablet by mouth once daily * Continuous Blood Gluc Radio Program Checker (CLASEMOVIL Haritha [place]) JACK(Started 05/27/2022) Inject 1 device subcutaneously continuous * Tresiba FlexTouch 200 UNIT/ML pen(Started 05/27/2022) INJECT 36 UNITS SUBCUTANEOUSLY ONCE DAILY * Coenzyme Q10 (CO Q 10 PO) Take 1 tablet by mouth once daily * calcitriol (Rocaltrol) 0.5 MCG capsule(Started 07/27/2022) Take 1 (one) capsule by mouth once daily * oxyCODONE, immediate release, (Roxicodone) 5 MG tablet(Started 08/25/2022) Take 1 (one) tablet to 2 (two) tablets by mouth every 6 hours as needed for Pain (pain) * oxyCODONE, immediate release, (Roxicodone) 5 MG tablet(Started 09/04/2022) Take 1 (one) tablet to 2 (two) tablets by mouth every 6 hours as needed for Pain (pain) * Continuous Blood Gluc Sensor (FreeStyle Haritha 2 Sensor Systm) [facility](Started 09/09/2022) CHANGE SENSOR EVERY 14 DAYS Active Problems Problem Noted Date Diagnosed Date [...] veins of leg with pain, left 10/05/2017 Primary osteoarthritis of both knees 08/27/2017 DM type 2 with diabetic peripheral neuropathy Coronary artery disease invo lving [place] coronary artery of [place] heart without angina pectoris 01/28/2017 Hx of CABG 01/28/2017 Cellulitis of left lower extremity 12/28/2016 Varicose vein of leg 12/28/2016 Social History Tobacco Use Types Packs/Day Years [...] Mass Index 30.96 08/17/2022 8:04 AM CDT Medical Devices Implanted Type Area Machine Stuffer Device Identifier Shelf Expiration Date Model / Serial / Lot Cmnt Bone Djo Srg Cblt 40gm Hvisc Strl Implanted:Qty: 1 on 08/17/2022 by Franco Randolph MD at [facility] Left: Knee [employer] 11/27/2023 600-15-000 / / [id number] Cmpnt Ptlr Std 28mm 3 Pg Kn Ser A Implanted:Qty: 1 on 08/17/2022 by Franco Randolph MD at [facility] Left: Knee [employer]anca [employer] 05/07/2027 [id number] / / [id number] Tray Tib 75mm Kn Cocr I Beam Implanted:Qty: 1 on 08/17/2022 by Franco Randolph MD at [facility] Left: Knee Blanca [employer] 08/24/2031 [id number] / / [id number] Cmpnt Fem Kn Lt Cr Cmnt Prm Vngrd Intlk 67.5 Mm Implanted:Qty: 1 on 08/17/2022 by Franco Randolph MD at [facility] Left: Knee [employer]anca [employer] 06/02/2032 [id number] / / [id number] [id number] Vngrd Arcm Kn Ant Stab Implanted:Qty: 1 on 08/17/2022 by Franco Randolph MD at [facility] Left: Knee Blanca [employer] 05/22/2027 [id number] / / [id number] Procedures * XR KNEE LEFT 3VW(Performed 09/28/2022) Performed for Aftercare following left knee joint replacement surgery * GLUCOSE - POINT OF CARE(Performed 08/18/2022) * BASIC METABOLIC PANEL (CALCIUM TOTAL)(Performed 08/18/2022) Performed for 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 with muscle involvement withoutevidence of necrosis, unspecified laterality (HCC) * GLUCOSE - POINT OF CARE(Performed 08/18/2022) * HEMOGLOBIN(Performed 08/18/2022) Performed for 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 with muscle involvement withoutevidence of necrosis, unspecified laterality (HCC) * GLUCOSE - POINT OF CARE(Performed 08/17/2022) * GLUCOSE - POINT OF CARE(Performed 08/17/2022) * NEURAXIAL BLOCK(Performed 08/17/2022) * MN TOTAL KNEE REPLACEMENT(Performed 08/17/2022) * GLUCOSE - POINT OF CARE(Performed 08/17/2022) * COMPREHENSIVE METABOLIC PANEL(Performed 07/24/2022) Performed for Preoperative examination * CBC W AUTO DIFFERENTIAL(Performed 07/24/2022) Performed for Preoperative examination * EKG 12-LEAD(Performed 07/24/2022) Performed for Preoperative examination * XR KNEE LEFT 3VW(Performed 05/11/2022) Performed for Left knee pain, unspecified chronicity * XR FINGERS RIGHT 2VW OR MORE(Performed 03/21/2019) Performed for Right hand pain * XR KNEE BILAT 3VW(Performed 02/21/2019) Performed for Pain in both knees, unspecified chronicity * DERMATOPATHOLOGY(Performed 02/07/2015) * DERMATOPATHOLOGY(Performed 03/22/2013) * DERMATOPATHOLOGY(Performed 09/09/2012) * DERMATOPATHOLOGY(Performed 03/04/2012) * PATHOLOGY/GENETICS HISTORICAL-ONBASE(Performed 11/14/2008) Results * XR KNEE LEFT 3VW (09/28/2022 2:51 PM CDT) Only the most recent of2 resultswithin the time period is included. Anatomical Region Laterality Modality Lower Extremity Computed Radiogr aphy Narrative 09/28/2022 2:52 PM CDT Kerline Calhoun, RT(R) 10/19/2022 11:08 AM See progress notes for results Franco Randolph MD DIAGNOSTIC IMAGING O RDERABLES * (ABNORMAL) GLUCOSE - POINT OF CARE (08/18/2022 11:39 AM CDT) Only the most recent of5 resultswithin the time period is included. Glucose WB/POC 213(H) 70 - 106 mg/dL 08/18/2022 11:43 AM CDT [facility] Specimen Type Cap Fingerstick 2022 11:43 AM CDT [facility] Blood BLOOD SPECIMEN / Unknown 08/18/2022 11:39 AM CDT 08/18/2022 11:43 AM CDT Franco Randolph MD LAB - POINT OF CARE ORDERABLES [facility] [address] [place] [address] * (ABNORMAL) BASIC METABOLIC PANEL (CALCIUM TOTAL) (08/18/2022 10:10 AM CDT) Glucose 288(H) 70 - 105 mg/dL 08/18/2022 10:45 AM CDT [facility] Sodium 138 136 - 145 mmol/L 08/18/2022 10:45 AM CDT [facility] Potassium 4.6 3.5 - 5.1 mmol/L 08/18/2022 10:45 AM CDT [facility] Chloride 106 98 - 107 mmol/L 08/18/2022 10:45 AM CDT [facility] CO2 23 23 - 31 mmol/L 08/18/2022 10:45 AM CDT [facility] Calcium 9.6 8.4 - 10.4 mg/dL 08/18/2022 10:45 AM CDT [facility] Anion Gap 9 8 - 18 mmol/L 08/18/2022 10:45 AM CDT [facility] BUN 36(H) 9.8 - 20.1 mg/dL 08/18/2022 10:45 AM CDT [facility] Creatinine 1.00 0.57 - 1.11 mg/dL 08/18/2022 10:45 AM CDT [facility] eGFR by CKD-EPI 58(L) >=90 mL/min/1.7 3 m2 08/18/2022 10:45 AM CDT [facility] Blood BLOOD SPECIMEN / Unknown Venipuncture / Unknown 08/18/2022 10:10 AM CDT 08/18/2022 10:15 AM CDT Sunita Bal MD LAB - CHEMISTRY ORD ERABLES Performing Organization Address [facility] Co de Phone Number [facility] [address] [place], [place] [id number] * (ABNORMAL) HEMOGLOBIN (08/18/2022 6:30 AM CDT) Hemoglobin 11.9(L) 12.0 - 15.6 gm/dL 08/18/2022 7:10 AM CDT [facility] Blood BLOOD SPECIMEN / Unknown Venipuncture / Unknown 08/18/2022 6:30 AM CDT 08/18/2022 6:54 AM CDT Sunita Bal MD LAB - HEMATOLOGY OR DERABLES Performing Organization Address [facility] Co de Phone Number [facility] [address] [place] [address] * Neuraxial Block (08/17/2022 11:34 AM CDT) Narrative Libra Coyne APRN-CRNA - 08/17/2022 11:34 AM CDT Libra Coyne APRN-CRNA 08/17/2022 11:36 AM Neuraxial Block Note Pre-Procedure: Procedure Name: Neuraxial Block Patient Location: OR Indications: surgical anesthesia Pre-Anesthetic Checklist: Patient identified, IV Checked, Risks and benefits discussed, Surgical consent verified, Monitors and equipment, Site examined, Pre-op evaluation done, Time-out performed, Informed consent obtained, Questions answered/anesthesia questions answered and Allergies reviewed Anticoagulation/ Anti-thrombosis status confirmed? Yes Supplemental O2: room air Monitors: BP and continuous pluse ox Patient Condition: sedated, meaningful contact maintained throughout procedure Procedure: Block Type: Spinal Prep: Betadine Sterile Field: mask, cap/hat, sterile established and sterile gloves Approach: midline Skin was localized? Yes Spinal Block: Needle Type: spinal needle Needle Gauge: 22 Needle Length: 90 mm Placement Site: L3-4 Number of Attempts: 1 CSF: free flow, aspiration before injection Degree of difficulty: none Procedure Tolerance: tolerated well Sensory Level: mid-thoracic Motor Blockade: Yes Position post procedure: supine Vital Signs: Vital signs monitored and stable throughout. See anesthesia record for details. Start Time: 08/17/2022 10:21 AM End Time: 08/17/2022 10:27 AM Total Time: 6 Staff: Anesthesia Provider: Libra Coyne APRN-CRNA - performed the procedure Moriah Chaparro MD GENERAL ANESTHESI A ORDERABLES * CBC W AUTO DIFFERENTIAL (07/24/2022 8:49 AM CDT) WBC 4.8 4.4 - 10.7 x10E9/L 07/24/2022 9:05 AM CDT [facility] WBC Corrected 07/24/2022 9:05 AM CDT [facility] RBC 4.54 3.80 - 5.20 x10E12/L 07/24/2022 9:05 AM CDT [facility] Hemoglobin 14.2 12.0 - 15.6 gm/dL 07/24/2022 9:05 AM CDT [facility] Hematocrit 43.6 35.9 - 45.5 % 07/24/2022 9:05 AM CDT [facility] MCV 96.0 80.7 - 98.3 fl 07/24/2022 9:05 AM CDT [facility] MCH 31.3 26.7 - 34.0 pg 07/24/2022 9:05 AM CDT [facility] MCHC 32.6 30.8 - 35.9 gm/dL 07/24/2022 9:05 AM CDT [facility] Platelet Count 225 153 - 416 x10E9/L 07/24/2022 9:05 AM CDT [facility] RDW-CV 12.5 12.1 - 14.9 % 07/24/2022 9:05 AM CDT [facility] MPV 10.8 9.4 - 12.9 fl 07/24/2022 9:05 AM CDT [facility] Neutrophils % 58.6 44.0 - 73.0 % 07/24/2022 9:05 AM CDT [facility] Lymphocytes % 25.4 20.0 - 43.0 % 07/24/2022 9:05 AM CDT [facility] Monocytes % 10.8 5.0 - 13.0 % 07/24/2022 9:05 AM CDT [facility] Eosinophils % 4.0 0.0 - 6.0 % 07/24/2022 9:05 AM CDT [facility] Basophils % 1.0 0.0 - 2.0 % 07/24/2022 9:05 AM CDT [facility] Immature Granulocytes 0.2 0 - 1 % 07/24/2022 9:05 AM CDT [facility] Neutrophil Absolute 2.82 2.01 - 7.14 x10E9/L 07/24/2022 9:05 AM CDT [facility] Lymphocytes Absolute 1.22 1.07 - 3.94 x10E9/L 07/24/2022 9:05 AM CDT [facility] Monocytes Absolute 0.52 0.26 - 1.07 x10E9/L 07/24/2022 9:05 AM CDT [facility] Eosinophils Absolute 0.19 0 - 0.47 x10E9/L 07/24/2022 9:05 AM CDT [facility] Basophils Absolute 0.05 0 - 0.08 x10E9/L 07/24/2022 9:05 AM CDT [facility] Immature Granulocytes Absolute 0.01 0.00 - 0.06 x10E9/L 07/24/2022 9:05 AM CDT [facility] nRBC Auto 0 /100 WBC 07/24/2022 9:05 AM CDT [facility] Blood BLOOD SPECIMEN / Unknown Venipuncture / Unknown 07/24/2022 8:49 AM CDT 07/24/2022 8:58 AM CDT Libra Diez PICKER BOX OPERATOR-BATTALION FIRE CHIEF LAB - HEMATO LOGY ORDERABLES [facility] [address] [place] [address] * (ABNORMAL) COMPREHENSIVE METABOLIC PANEL (07/24/2022 8:49 AM CDT) Glucose 155(H) 70 - 105 mg/dL 07/24/2022 9:16 AM CDT [facility] Sodium 139 136 - 145 mmol/L 07/24/2022 9:16 AM CDT [facility] Potassium 4.5 3.5 - 5.1 mmol/L 07/24/2022 9:16 AM CDT [facility] Chloride 107 98 - 107 mmol/L 07/24/2022 9:16 AM CDT [facility] CO2 26 23 - 31 mmol/L 07/24/2022 9:16 AM CDT [facility] Calcium 9.7 8.4 - 10.4 mg/dL 07/24/2022 9:16 AM CDT [facility] Anion Gap 6(L) 8 - 18 mmol/L 07/24/2022 9:16 AM CDT [facility] BUN 18 9.8 - 20.1 mg/dL 07/24/2022 9:16 AM CDT [facility] Creatinine 0.71 0.57 - 1.11 mg/dL 07/24/2022 9:16 AM CDT [facility] Alkaline Phosphatase 44 40 - 150 U/L 07/24/2022 9:16 AM CDT [facility] ALT 15 0 - 61 U/L 07/24/2022 9:16 AM CDT [facility] AST 16 5 - 34 U/L 07/24/2022 9:16 AM CDT [facility] Protein Total 7.1 6.4 - 8.3 gm/dL 07/24/2022 9:16 AM CDT [facility] Albumin 4.1 3.2 - 4.6 gm/dL 07/24/2022 9:16 AM CDT [facility] Bilirubin Total 0.5 0.2 - 1.2 mg/dL 07/24/2022 9:16 AM CDT [facility] eGFR by CKD-EPI 87(L) >=90 mL/min/1.7 3 m2 07/24/2022 9:16 AM CDT [facility] Blood BLOOD SPECIMEN / Unknown Venipuncture / Unknown 07/24/2022 8:49 AM CDT 07/24/2022 8:58 AM CDT Libra Diez PICKER BOX OPERATOR-BATTALION FIRE CHIEF LAB - CHEMIS TRY ORDERABLES Performing Organization Address City/[facility]/ZIP Co de Phone Number [facility] [address] [place] [address] * EKG 12-LEAD (07/24/2022 8:38 AM CDT) Ventricular Rate 50 BPM [facility] Atrial Rate 50 BPM [facility] P-R Interval 208 ms [facility] QRS Duration ms 142 ms [facility] Q-T Interval ms 494 ms [facility] QTC Calculation (Bezet) 450 ms [facility] Calculated P [place] 22 degrees [facility] Calculated R [place] 25 degrees [facility] Calculated T [place] -13 degrees [facility] Interpretation EKG Sinus bradycardia with occasional Premature ventricular complexes Right bundle branch block Inferior infarct , age undetermined Anterolateral infarct , age undetermined Abnormal ECG No previous ECGs available Confirmed by DONAL DYSON MD ([id number]) on 07/24/2022 12:51:51 PM [facility] 07/24/2022 8:38 AM CDT 07/24/2022 12:51 PM CDT Eve Neri DO ECG ORDERABLES Performing Organization Address [facility] Co de Phone Number [facility] * XR FINGERS RIGHT 2VW OR MORE (03/21/2019 2:14 PM INVENTORY AUDIT CLERK) Anatomical Region Laterality Modality Upper Extremity, Wrist / Hand Co mputed Radiography Narrative 03/21/2019 2:15 PM INVENTORY AUDIT CLERK Kerline Calhoun RT(R) 03/21/2019 3:04 PM See progress notes for results Amber Fairchild MD DIAGNOSTIC IMAGING O RDERABLES * XR KNEE BILAT 3VW (02/21/2019 2:14 PM INVENTORY AUDIT CLERK) Anatomical Region Laterality Modality Lower Extremity Computed Radiogr aphy Narrative 02/21/2019 2:15 PM INVENTORY AUDIT CLERK Kerline Calhoun, RT(R) 02/22/2019 4:35 PM See progress notes for results Rosibel Stanton PA-C DIAGNOSTIC IM AGING ORDERABLES * PATHOLOGY TISSUE FOR DERMATOLOGY (02/07/2015 12:00 AM INVENTORY AUDIT CLERK) Only the most recent of4 resultswithin the time period is included. Result CASE: [id number] PATIENT: ANA M CHILDRESS PATHOLOGIC DIAGNOSIS: Forehead: SQUAMOUS CELL CARCINOMA, WELL DIFFERENTIATED CLINICAL DATA: Rule out BCC vs ISK. GROSS DESCRIPTION: Received is one formalin filled container labeled with the patients name and designated forehead. The specimen consists of a shave biopsy (2 pieces) measuring [id number]. Jar 0. MICROSCOPIC DESCRIPTION: Arising in the epidermis and extending into the dermis there are irregularly shaped aggregates of keratinocytes showing evidence of premature cornification. Electronically signed out by Yaneth Wray M.D. 02/11/2015 1:13:30PM [facility] Comment: Performed at: Dermatopathology Laboratory [facility] - Department of Dermatology [address] [place] [address] [place] [address] Phone number: [phone] FAX: [phone] Skin (tissue) specimen (specimen) 02/07/2015 02/08/2015 Narrative [facility] - 02/11/2015 1:13 PM INVENTORY AUDIT CLERK Alexis Mcleod MD Preferred Lab:->Derm-Path Specimen A: Type->Shave Site->forehead History->pink pearly papule with crust Impression->rule out BCC vs ISK Check Margins:->N/A Prior Biopsy->N/A Alexis Mcleod MD LAB - PATHOLOGY/CYTO LOGY ORDERABLES [facility] [address] [place] [address]. [facility] [place] [address], [facility] [phone] * PATHOLOGY/GENETICS HISTORICAL-ONBASE (11/14/2008) 11/14/2008 Narrative [facility] - 02/18/2012 9:15 AM INVENTORY AUDIT CLERK Historical Provider LAB - CHEMISTRY O RDERABLES [facility] [address] [place] [address], [facility] Care Teams Oil Heater Operator Relationship Specialty Start Date End Date Ernestina Luevano MD [address] [place] [address] PCP - General Family Medicine 06/03/22 [place] [address] [place] [address] Orthopedic Surgery 08/27/17 Cirilo Buenrostro MD [address] [place] [address] Hvac Sheet Metal Installer Helper Cardiology 08/12/22
--- OUTSIDE RECORDS SUMMARY | 2024-05-17 15:03 | XMS_ITS | Clinical Summary ---
Author Organization [facility] [employer] Address [address] [facility] [place] [address] Care Team Providers Care Lunch Cook Name Role Phone Franco Randolph MD Unavailable [phone] Ernestina Luevano MD Primary Care Provider + Cirilo Buenrostro MD Unavailable [phone] Source Comments [facility] [employer]non-owned Affiliates and Associated Physician Practices is amultiple site organization consisting of ambulatory clinics and hospital sitesin [place], [place], [place] and [place]. This disclosure is being madepursuant to the Care Everywhere program and may not contain all information available regarding this patient. Last updated 17.[facility] [employer] Allergies No known active allergies Medications * [...] once daily 07/03/2020 Active Continuous Blood Gluc Cigar Making Machine Supervisor (FreeStyle Harith[address]) JACK Inject 1 device subcutaneously continuous 05/27/2022 [...] Overview: Added automatically from request for surgery [id number] Primary osteoarthritis of both knees 08/27/2017 DM type 2 with diabetic peripheral neuropathy Overview (08/27/2017): Last Assessment & Plan: Foot care discussed. Coronary artery disease invo lving [place] coronary artery of [place] heart without angina pectoris 01/28/2017 Hx of [...] Mass Index 30.96 08/17/2022 8:04 AM CDT Plan of Treatment Health Maintenance Due Date Last Done Comments BONE DENSITY TESTING 1945 MEDICARE AWV 12 MONTHS 1944 DTAP/TDAP/TD VACCINES (1 - Tdap) 1963 PNEUMOCOCCAL VACCINE 50+ (1 of 2 - PCV) 1963 ZOSTER VACCINE (1 of 2) 1994 DIABETES RETINOPATHY SCREENING 01/12/2019 DIABETES-FOOT EXAM WITH MONOFILAMENT 01/12/2019 Respiratory Syncytial Virus (RSV) Vaccine Pt: or over 60 yrs (1 - 1-dose 75+ series) 2019 DIABETES-HGB A1C 02/11/2023 08/11/2022, , 04/03/2020, Additional history exists DIABETES-SERUM CREATININE 08/19/20232022, 07/24/2022, 06/01/2022, Additional history exists COVID-19 VACCINE ( season) 2023 INFLUENZA VACCINE (#1) 2023 DEPRESSION SCREENING 04/05/2024 DIABETES - URINE PROTEIN SCREENING 04/05/2024 06/01/2022 HEPATITIS B VACCINE Aged Out No longe r eligible based on patient's age to complete this topic HIB VACCINE Aged Out No longer eligi ble based on patient's age to complete this topic HPV VACCINE Aged Out No longer eligi ble based on patient's age to complete this topic MENINGOCOCCAL (Group B) VACCINE Aged Out No longer eligible based on patient's age to complete this topic MENINGOCOCCAL VACCINE Aged Out No sonu pham eligible based on patient's age to complete this topic Medical Devices Implanted Type Area Railroad Track Inspector Device Identifier Shelf Expiration Date Model / Serial / Lot Cmnt Bone Djo Srg Cblt 40gm Hvisc Strl Implanted:Qty: 1 on 08/17/2022 by Franco Randolph MD at [facility] Left: Knee [employer] 11/27/2023 600-15-000 / / [id number] Cmpnt Ptlr Std 28mm 3 Pg Kn Ser A Implanted:Qty: 1 on 08/17/2022 by Franco Randolph MD at [facility] Left: Knee [employer] 05/07/2027 [id number] / / [id number] Tray Tib 75mm Kn Cocr I Beam Implanted:Qty: 1 on 08/17/2022 by Franco Randolph MD at [facility] Left: Knee [employer] 08/24/2031 [id number] / / [id number] Cmpnt Fem Kn Lt Cr Cmnt Prm Vngrd Intlk 67.5 Mm Implanted:Qty: 1 on 08/17/2022 by Franco Randolph MD at [facility] Left: Knee [employer] 06/02/2032 [id number] / / [id number] Brng [id number] Vngrd Arcm Kn Ant Stab Implanted:Qty: 1 on 08/17/2022 by Franco Randolph MD at [facility] Left: Knee [employer] 05/22/2027 [id number] / / [id number] Procedures Procedure Name Priority Date/Time Associated Diagnosis [...] - 145 mmol/L 08/18/2022 10:45 AM CDT [facility] Potassium 4.6 3.5 - 5.1 mmol/L 08/18/2022 10:45 AM CDT [facility] Chloride 106 98 - 107 mmol/L 08/18/2022 10:45 AM CDT [facility] CO2 23 23 - 31 mmol/L 08/18/2022 10:45 AM CDT [facility] Calcium 9.6 8.4 - 10.4 mg/dL 08/18/2022 10:45 AM CDT [facility] Anion Gap 9 8 - 18 mmol/L 08/18/2022 10:45 AM CDT [facility] BUN 36(H) 9.8 - 20.1 mg/dL 08/18/2022 10:45 AM CDT [facility] Creatinine 1.00 0.57 - 1.11 mg/dL 08/18/2022 10:45 AM CDT [facility] eGFR by CKD-EPI 58(L) >=90 mL/min/1.7 3 m2 08/18/2022 10:45 AM CDT [facility] Blood BLOOD SPECIMEN / Unknown Venipuncture / Unknown 08/18/2022 10:10 AM CDT 08/18/2022 10:15 AM CDT Sunita Bal MD LAB - CHEMISTRY ORD ERABLES [facility] [address] [place] [address] from Last 3 Months or Most Recently Relevant to Health Maintenance Advance Directives * Full Code (Latest Code Status on File) Date Activated Date Inactivated Comments 08/17/2022 1:40 PM 08/18/2022 4:20 PM Care Teams Lunch Cook Relationship Specialty Start Date End Date Ernestina Luevano MD [address] [address] [address] [place], [place] [id number] PCP - General Family Medicine 06/03/22 [place] [address] [facility] [address] [place] [address] Orthopedic Surgery 08/27/17 Cirilo Buenrostro MD [address] [facility] [address] [place] [address] Skip Pit Worker Cardiology 08/12/22
--- OUTSIDE RECORDS SUMMARY | 2024-05-17 15:03 | XMS_ITS | Data Portability ---
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 patient previously received a corticosteroid injection in January of 2022 and had relief of her pain until recently when it became exacerbated with frequent bumping of her joint at work. she is interested in and additional corticosteroid injection in that joint. Using standard technique and sterile protocols 1 cc Kenalog and 1 cc of Ropivacaine was injected into the left Index finger at the MCP joint. She may follow-up as needed if her symptoms persist or worsen. [email or web address] Not available 08/04/2022 09:35:00 03/10/2023 03/10/2023 69-year-old female presents for evaluation of her left elbow and also her right hand. She has a history of left medial epicondylitis that was previously treated by Dr. Martinez. She has had longstanding pain and had been treated with anti-inflammatori es, counterforce strap, and a cortisone injection in September. She says the injection worked well for a while, but then wore off. She is currently using a elbow sleeve and taking aspirin. She wants to get another injection into the elbow today. She also has another complaint of a right middle finger trigger. She has also previously had an injection in that hand before, which lasted her a while, but now has started to wear off. She has locking and triggering when she tries to straighten out her middle finger from flexion. Review of systems per patient questionnaire Physical exam: She has tenderness palpation of the medial epicondyle. Pain with resisted wrist flexion and pronation. No tenderness laterally, or elsewhere around the elbow wrist. With her right hand, she has tenderness over the A1 quinn. She has catching and triggering of the middle finger from flexion extension, pain with full extension. She has sensation intact to light touch, brisk cap refill. X-rays of the hand were obtained reviewed, demonstrating no acute bony abnormality. She has left medial epicondylitis which has failed conservative management for extended period time including cortisone injection. She is requesting a neither injection. I discussed that I typically do not recommend doing repeated injections for tendinitis, as that can lead to damage of the tendon. We discussed that she should focus on physical therapy exercises as well as meloxicam as anti-inflammatory . She did not want to do physical therapy and so we gave her a handout of elbow exercises to do. With regards to her right trigger finger, she has also failed a cortisone injection. We discussed that with the meloxicam should help, and otherwise she should continue doing exercises for her fingers. It also possible to repeat cortisone injection if the last 1 worked well for her, with the last option given that she has failed conservative management would be surgery for trigger release. She did not want anything besides some meloxicam and the home exercises at this point. We will have her follow up as needed, she may call with any questions or concerns. [email or web address] Not available 03/10/2023 20:12:22 Plan of Treatment Reminders Order Date Submit Date Provider Last Modified By Organization Details Last Modified Time Details Appointments None recorded. Lab None recorded. Referral None recorded. Procedures injection/ aspiration joint/burs a (PROC) - in office procedure, administer ed by provider 2022 023 [email or web address] In-Office Order, Internal Use Only DO Not Attach Compendium DO Not Attach Compendium, Do Not Delete/merge, [id number] 09:09:50 injection/ aspiration joint/burs a (PROC) - in office procedure, administer ed by provider 2022 023 [email or web address] In-Office Order, Internal Use Only DO Not Attach Compendium DO Not Attach Compendium, Do Not Delete/merge, [id number] 3 15:33:20 Surgeries None recorded. Imaging XR, hand, 3 or more view 2022 023 [email or web address] [facility] [place], [address], [place], [address], 3 09:39:43 XR, elbow 2022 023 [email or web address] [facility] [place], [address], [place], [address], 3 15:40:12 XR, hand, 3 or more view 2022 023 [email or web address] [facility] [place], [address], [place], [address], 3 07:31:14 Medication Orders Kenalog 10 mg/mL suspension for injection [address] [facility] [place], [address], 3 09:09:52 ropivacain e (PF) 5 mg/mL (0.5 %) injection solution [address] [facility], [address] [facility] [place], [address], 3 09:23:07 Kenalog 10 mg/mL suspension for injection [address] [facility], [address] [place], [address], 3 15:33:24 ropivacain e (PF) 5 mg/mL (0.5 %) injection solution [address] [facility], [address] [facility] [place] [place], [address], 3 15:33:24 Mobic 15 mg tablet 2022 023 [email or web address] [facility], [address], [place], [address], 20:07:14 Patient TargetsNo targets recorded. Patient InstructionsNo instructions recorded. Reason for Referral None Reported. Results Created Date Observation Date Name Description Value Unit Range Abnormal Flag Note LastModifiedBy Organization Detail LastModifiedTime 08/05/19 23 XR, hand, 3 or more view No observ ation record ed. [email or web address] [facility] [place] [address] [facility] [address], [place], [address], 08/04/2022 09:33:15 09/24/19 23 XR, elbow No observ ation record ed. [email or web address] [facility] [place] [address] [facility] [address], [place], [address], 09/23/2022 15:35:19 03/10/20 23 XR, hand, 3 or more view No observ ation record ed. [email or web address] [facility] [place] [address] [facility] [address], [place], [address], 03/10/2023 15:50:06 Result Notes None recorded. Problems Name Problem SNOMED Code Status Onset Date Resolution Date Notes Provider Name and Address Organization Details Recorded Time Acquired trigger finger 7956290 Active Not Available [facility] 3 13:49:59 Localized, primary osteoarthr itis of the hand 400442573 Active Not Available [facility] 3 13:49:59 Closed Colles' fracture 826954041 Active Not Available [facility] 3 13:49:59 Sprain of elbow and forearm 493144193 Active Not Available [facility] 3 13:49:59 Osteoarthr itis 011423695 Active Not Available [facility] 3 13:49:59 Fracture of forearm 54680950 Active Not Available [facility] 3 13:49:59 Pain in elbow 62235636 Active Not Available [facility] 3 13:49:59 Pain of left hand 5277661505098 03 Active 2022 TENNILLE Andrews, [facility] 3 08:42:23 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 7257869189256 9102 Active 2022 CHERELLE Trinh [address], [facility] [address], [place], [address] , [facility] 3 09:36:58 Pain of left elbow joint 5160547718505 9104 Active 2022 TENNILLE Snow, [facility] 3 14:35:08 Medial epicondyli tis of left elbow joint 3526554445103 07 Active 2022 Michael Martinez MD [address], [address], [place], [address] , [facility] 3 15:35:32 Pain in right hand 4614972663935 09 Active 2022 TENNILLE Andrews, [facility] 3 15:49:52 Problem Notes None recorded. Procedures Surgical History None recorded. Imaging Results Imaging Date Name Status LastModified by Organ atpending sale to [facility] Details LastModified Time 08/04/2022 XR, hand, 3 or more view completed [email or web address] [facility] [place] [address], [place], [address], 08/04/2022 09:33:15 09/23/2022 XR, elbow completed [email or web address] [facility] [place] [address], [place], [address], 09/23/2022 15:35:19 03/10/2023 XR, hand, 3 or more view completed [email or web address] [facility] [place] [address] [facility] [address], [place], [address], 03/10/2023 15:50:06 Procedure Notes None recorded. Medical Equipment None Reported. Medications Name Sig Start Date Stop Date Status Note LastModified by Organization Details LastModified Time celecoxib 200 mg capsule TAKE 1 CAPSULE BY MOUTH TWICE DAILY active Not Available Not Available No t Available carvedilol 25 mg tablet TAKE 1 TABLET BY MOUTH TWICE DAILY WITH MEALS 09/23 completed Not Available Not Available Not Available enalapril maleate 10 mg tablet TAKE 1 TABLET BY MOUTH ONCE DAILY active Not Available Not Available No t Available ofloxacin 0.3 % eye drops 02/08 completed Not Available Not Available Not Available fluconazole 150 mg tablet TAKE ONE TABLET BY MOUTH A ONE-TIME DOSE active Not Available Not Available No t Available hydrocodone 5 mg-acetamin ophen 325 mg tablet 02/10 completed Not Available Not Available Not Available terconazole 0.8 % vaginal cream 02/08 completed Not Available Not Available Not Available Lantus U-100 Insulin 100 unit/mL subcutaneou s solution 01/30 completed Not Available Not Available Not Available clopidogrel 75 mg tablet TAKE 1 TABLET BY MOUTH ONCE DAILY FOR 21 DAYS active Not Available Not Available No t Available ciprofloxac in 500 mg tablet TAKE 1 TABLET BY MOUTH TWICE DAILY FOR 5 DAYS 09/23 completed Not Available Not Available Not Available hydrocodone 10 mg-acetamin ophen 325 mg tablet 01/30 completed Not Available Not Available Not Available tramadol 50 mg tablet TAKE 1 TABLET BY MOUTH EVERY 6 TO 8 HOURS NEEDED 09/23 completed Not Available Not Available Not Available simvastatin 40 mg tablet 02/10 completed Not Available Not Available Not Available meloxicam 7.5 mg tablet 01/30 completed Not Available Not Available Not Available Mobic 15 mg tablet Take 1 tablet every day by oral route. 2022 active Not Available Not Available Not Avai lable oxycodone-a cetaminophe n 5 mg-325 mg tablet 01/30 completed Not Available Not Available Not Available famotidine 20 mg tablet TAKE 1 TABLET BY MOUTH TWICE DAILY active Not Available Not Available No t Available triamcinolo ne acetonide 0.025 % topical cream 01/30 completed Not Available Not Available Not Available Humalog U-100 Insulin 100 unit/mL subcutaneou s solution 01/30 completed Not Available Not Available Not Available Kenalog 10 mg/mL suspension for injection IN OFFICE 2022 active [facility]: 0003- 0494- 20 Not Available Not Available Not Available cephalexin 500 mg capsule TAKE 1 CAPSULE BY MOUTH EVERY 12 HOURS FOR 7 DAYS 09/23 completed Not Available Not Available Not Available pantoprazol e 40 mg tablet,tony yed release TAKE 1 TABLET BY MOUTH ONCE DAILY active Not Available Not Available No t Available calcitriol 0.5 mcg capsule TAKE 1 CAPSULE BY MOUTH ONCE DAILY active Not Available Not Available No t Available clotrimazol e-betametha sone 1 %-0.05 % topical cream 02/10 completed Not Available Not Available Not Available glimepiride 4 mg tablet 01/30 completed Not Available Not Available Not Available gabapentin 300 mg capsule TAKE 1 CAPSULE BY MOUTH THREE TIMES DAILY active Not Available Not Available No t Available diclofenac sodium 75 mg tablet,tony yed release 01/27 completed Not Available Not Available Not Available mupirocin 2 % topical ointment APPLY OINTMENT TOPICALLY THREE TIMES DAILY active Not Available Not Available No t Available gabapentin 100 mg capsule 02/10 completed Not Available Not Available Not Available methylpredn isolone 4 mg tablets in a dose pack 01/30 completed Not Available Not Available Not Available ondansetron 4 mg disintegrat ing tablet DISSOLVE 1 TABLET IN MOUTH EVERY 8 HOURS NEEDED FOR NAUSEA AND VOMITING active Not Available Not Available No t Available metformin ER 500 mg tablet,exte nded release 24 hr 01/30 completed Not Available Not Available Not Available sertraline 50 mg tablet 01/30 completed Not Available Not Available Not Available amitriptyli ne 100 mg tablet 01/30 completed Not Available Not Available Not Available doxycycline hyclate 100 mg tablet TAKE 1 TABLET BY MOUTH EVERY 12 HOURS FOR 7 DAYS active Not Available Not Available No t Available insulin syringe U-100 with needle 0.5 mL 31 gauge x 5/16 01/30 completed Not Available Not Available Not Available naproxen 500 mg tablet 02/08 completed Not Available Not Available Not Available metoclopram jorge 10 mg tablet TAKE 1 TABLET BY MOUTH EVERY 6 HOURS NEEDED FOR NAUSEA AND VOMITING active Not Available Not Available No t Available amoxicillin 875 mg-potassiu m clavulanate 125 mg tablet TAKE 1 TABLET BY MOUTH EVERY 12 HOURS 01/27 completed Not Available Not Available Not Available amoxicillin 500 mg-potassiu m clavulanate 125 mg tablet TAKE 1 TABLET BY MOUTH THREE TIMES DAILY active Not Available Not Available No t Available oxycodone 5 mg tablet TAKE 1 TO 2 TABLETS BY MOUTH EVERY 6 HOURS NEEDED FOR PAIN active Not Available Not Available No t Available Novolog FlexPen U-100 Insulin aspart 100 unit/mL (3 mL) subcutaneou s INJECT 20 SUBCUTANE OUSLY THREE TIMES DAILY active Not Available Not Available No t Available rosuvastati n 10 mg tablet TAKE 1 TABLET BY MOUTH ONCE DAILY active Not Available Not Available No t Available Ultima Test Strips 01/30 completed Not Available Not Available Not Available Vytorin 10 mg-40 mg tablet 01/30 completed Not Available Not Available Not Available BD Ultra-Fine Mini Pen Needle 31 gauge x 3/16 USE TO INJECT INSULIN 4 TIMES DAILY active Not Available Not Available No t Available Levemir U-100 Insulin 100 unit/mL subcutaneou s solution 01/30 completed Not Available Not Available Not Available ropivacaine (PF) 5 mg/mL (0.5 %) injection solution IN OFFICE 2022 active [facility] [address]7074 -064- 01 Not Available Not Available Not Available V-GO 40 device 01/30 completed Not Available Not Available Not Available Farxiga 10 mg tablet 02/10 completed Not Available Not Available Not Available Levemir FlexTouch U-100 Insulin 100 unit/mL (3 mL) subcutaneou s pen INJECT 50 UNITS SUBCUTANE OUSLY ONCE DAILY WITH SUPPER active Not Available Not Available No t Available Jardiance 10 mg tablet 01/30 completed Not Available Not Available Not Available Tresiba FlexTouch U-200 insulin 200 unit/mL (3 mL) subcutaneou s pen INJECT 30 UNITS SUBCUTANE OUSLY ONCE DAILY active Not Available Not Available No t Available Basaglar KwikPen U-100 Insulin 100 unit/mL (3 mL) subcutaneou s 01/30 completed Not Available Not Available Not Available FreeStyle Haritha 2 Sensor kit CHANGE SENSOR EVERY 14 DAYS active Not Available Not Available No t Available FreeStyle Haritha 2 [place] USE DIRECTED active Not Available Not Available No t Available Vitals Date Recorded Body mass index (BMI) Body height Pain severity - 0-10 verbal numeric rating [Score] - Reported Body weight Provider Name and Address Organization Details Last Updated DateTime 06/03/2022 21.2 kg/m2 193.04 cm 10 54117.07 g Not Available [facility] 06/03/2022 13:49:51 Date Recorded Body height Body mass index (BMI) Body weight Pain severity - 0-10 verbal numeric rating [Score] - Reported Provider Name and Address Organization Details Last Updated DateTime 08/04/2022 193.04 cm 20.9 kg/m2 42391.89 g 10 Kira Null [facility] [employer] 08/04/2022 08:42:01 Date Recorded Body height Provider Name an d Address Organization Details Last Updated DateTime 09/23/2022 193.04 cm Adalgisa Dominguez [facility] [employer] 09/23/2022 14:34:21 Date Recorded Body height Body mass index (BMI) Body weight Pain severity - 0-10 verbal numeric rating [Score] - Reported Provider Name and Address Organization Details Last Updated DateTime 03/10/2023 193.04 cm 20 kg/m2 52794.15 g 0 Kira Null [facility] [employer] [facility] [employer] 03/10/2023 15:49:09 Social History Question Answer Notes LastModified by Organizat ion Details LastModified Time Tobacco Smoking Status Unknown If Ever Smoked Not Available [facility] 06/03/2022 13:49:39 What Is Your Level Of Alcohol Consumption? None [id number] Information not available 06/03/2022 What Was The Date Of Your Most Recent Tobacco Screening? 01/27/2022 [id number] Information not available 06/03/2022 Sex: Unknown Functional Status None recorded. Mental Status None recorded. Family History Nothing Reported. Medical History Condition Response ARTHRITIS Y DIABETES, TYPE Y Gynecological HistoryNo gynecological history recorded. Obstetrics History GPAL:G 0 P 0 0 0 0 Past Encounters Encounter ID Performer Location Encounter Start Date Encounter Closed Date Diagnosis/Indication Diagnosis SNOMED-CT Code Diagnosis ICD10 Code Diagnosis Note [id number] [facility] [place] [address] [place] [address] 01/27/2022 00:00:00 01/27/2022 12:38:48 [id number] CHERELLE Trinh [facility] [place] [address] [place] [address] 08/04/2022 08:38:44 08/04/2022 09:39:43 Pain of left hand 1544588388 18756 M79.642 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 5506695141 4580939 M19.042 [id number] Michael Martinez MD [facility] [place] [address] [place] [address] 09/23/2022 14:29:46 09/23/2022 15:40:12 Pain of left elbow joint 8056771957 9124218 M25.522 Medial epi condylitis of left elbow joint 4146751735 36414 M77.02 discussed the treatment options today. We will have her work on a stretching program watch her heavy repetitive lifting. We did a 1 time injection with 2 cc xylocaine 2 cc Kenalog over the medial epicondyle . We will see her back if no improvemen t with the 1 time injection and the stretching program [id number] Ricky Comer MD [facility] [place] 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 5697444 M65.30 Medial epi condylitis of left elbow joint 6854785838 60331 M77.02 Health Concerns Section Related Observation LastModified by Organization Detai ls LastModified Time None Recorded Concern Status LastModified by Organization Details LastModified Time None Recorded Advance Directives Directive None Recorded Payers Encounter Date Sequence Insurance Name Policy Number Policy Ivey Covered Member ID Ivey Member ID Guarantor Name 08/04/2022 1 [employer] - OPEN ACCESS Ana M Childress [id number] RAFITA Childress 09/23/2022 1 [employer] - OPEN ACCESS Ana M Weber Childress [id number] OI Ana M Weber Childress 03/10/2023 1 [employer] - OPEN ACCESS Ana M Weber Childress [id number] OI Ana M Weber McNeil Notes Date Note Type Note Provider Name and Address Organization Details Recorded Time 08/04/2022 text/html 77-year-old spencer dukes returns to the clinic with left index finger osteoarthritis at the MCP joint. she has previously received corticosteroid injection in this joint back in January of 2022 that provided her with significant relief until recently. She states that at work she has been bumping her knuckle on different objects and her pain has been exacerbated. she has tried some topical arthritis creams that has provided minimal relief. she denies any triggering of any of her fingers at this visit. CHERELLE Trinh [address], [place], [address], [employer] 08/04/2022 09:38:14 09/23/2022 text/html patient comes in today for evaluation left elbow pain she points over the medial epicondyle she has had pain when she torques the forearm does not remember any specific injury states she does do a lot of repetitive use of the forearm with her work she had tennis elbow some time ago had a cortisone injection that went away. No numbness or tingling associated with this. Patient has had previous vein harvesting from this forearm has also had previous [facility] arthroplasties on both hands Michael Martinez MD [address], [place], [address], [employer] 09/23/2022 15:36:04 OBGyn Episode No OBEpisode recorded.
--- OUTSIDE RECORDS SUMMARY | 2024-05-17 15:03 | XMS_ITS | Continuity of Care Document ---
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 , [address], [place], [address], [place]. tel:[phone] Family History Family Member Type Diagnosis Age At Onset No Information Payers Payer name Insurance type Covered alliance party ID Authoriza tion(s) No Information Social History Type Description Quantity Date Captured Comments Sex Female Smoking Status No Information Chief Complaint And Reason For Visit No Information Reason For Referral Reason For Referral No Information History Of Present Illness Encounter Date Complaint History Of Prese nt Illness No Information Functional Status Date Functional Assessmen t No Information Instructions Date Instruction Additional Infor mation No Information Assessments Type Assessment Date No Information Patient Care Teams Name Effective Dates (start - stop) Status Members No Information
[2024-05-17 15:45] LABS: Alveolar/Arterial O2 Gradient 72.4 mmHg; Base Excess ABG 2.4 mEq/l (+/-2.0); Fractional Inspired Oxygen 28 %; HCO3 ABG 28.4 mEq/l (22.0-26.0); Oxygen Content ABG 15.9 %vol (16.0-22.0); Oxygen Saturation ABG 93.1 % (95.0-100.0); Oxyhemoglobin 91.6 % THb (90.0-100.0); PCO2 ABG 49.9 mmHg (35.0-45.0); PO2 ABG 68.4 mmHg (80.0-100.0); PO2 FiO2 Ratio Arterial Blood 2.44 %; Total Hemoglobin 12.3 g/dL (12.0-18.0); pH ABG 7.373 (7.350-7.450)
[2024-05-17 15:46] LABS: Device NASAL CANNULA; Modified Allen's Test Pass; Site Drawn RIGHT RADIAL
--- NOTE | 2024-05-17 15:58 | ED.SOB ---
HPI - SOB/Dyspnea General Chief Complaint: Shortness of Breath/Dyspnea Stated Complaint: bradycardia Time Seen by Provider: 05/17/24 14:55 History of Present Illness HPI Narrative: Pt was at rehab today and was exerting self and HR dropped to 40's and sats dropped to 80's. Pt says she has been SOB for awhile. Pt denies CP now or leg pain. Related Data Home Medications ?Medication ?Instructions ?Recorded ?Confirmed ?Last Taken ?Type coenzyme Q10 100 mg capsule 200 mg PO DAILY 02/18/23 03/10/24 09/21/23 21:00 History (CoQ-10) carvedilol 25 mg tablet 25 mg PO BID 03/11/24 03/11/24 Unknown History Allergies Allergy/AdvReac Type Severity Reaction Status Date / Time No Known Allergies Allergy Verified 03/10/24 14:16 Review of Systems Review of Systems: All systems reviewed & are unremarkable except as noted in HPI and below PMFSH Past Medical History Medical History Acute CVA (cerebrovascular accident) Benign essential hypertension CHF (congestive heart failure) Coronary artery disease Cystocele with uterine prolapse Status post colpopexy. 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 History of lumbar laminectomy History of tonsillectomy and adenoidectomy History of total abdominal hysterectomy and bilateral salpingo-oophorectomy History of vein stripping Family History Family History Mother History of stroke Other Diabetes mellitus Sibling Alzheimer disease Social History Social History Social History: Surrogate medical decision maker: Mary Martinez, daughter. Code status: Full code. Smoking packs per day: 1 Smoking cigarettes per day: 20.0 Years smoked: 30 Smoking pack-years: 30.00 Smoking status: Never smoker Second hand tobacco smoke exposure: No Alcohol intake: never Substance use: never Substance use type: does not use Do You Feel Safe in your Home?: No Lack of Transportation: No Lack of Food: Never True Current Housing: Decline to Answer Concerned About Future Housing: Decline to Answer Difficulty Paying Gas/Electric Bills: Decline to Answer Difficulty Paying for Meds: Decline to Answer Currently Unemployed: Decline to Answer Education: Don't Know Difficulty w/ Childcare or Family Care: Decline to Answer Living arrangements: with family Occupation/Education: retired Gender identity (if verbalized by the patient): Female Sexual Orientation (if Verbalized by the Patient): Straight or Heterosexual Spiritual care concerns: No Agree to blood products: Yes Exam Const: General: healthy appearing and no acute distress Nutritional Appearance: well nourished Orientation/consciousness: patient oriented x3 Limitations: no limitations Chest: Chest palpation & inspection: normal inspection of the chest Resp: Effort & Inspection: normal respiratory effort Auscultation: clear to auscultation bilaterally Cardio: Rate: bradycardic Rhythm: regular rhythm GI: GI Palp: Yes Soft to palpation and No Tenderness to palpation present (GI) Auscultation: normal bowel sounds Skin: General skin exam: normal color Wounds: no wounds Neuro: General: patient oriented x3, moves all extremities, no meningeal signs, no focal motor deficits and CN's II-XI intact bilaterally Cranial nerves: Yes Nystagmus not present Speech: normal speech Gait exam (Neuro): Normal gait present Extrem: General: normal to inspection and no clubbing, cyanosis or edema Psych: Mental Status: mental status grossly normal Affect: normal affect Attitude: cooperative Course Vital Signs Vital signs: Vital Signs Temperature 97.9 F 05/17/24 14:59 Pulse Rate 53 L 05/17/24 14:59 Respiratory Rate 16 05/17/24 14:59 Blood Pressure 128/56 L 05/17/24 14:59 Pulse Oximetry 95 05/17/24 14:59 Oxygen Delivery Nasal Cannula 05/17/24 14:59 Oxygen Flow Rate 2 05/17/24 14:59 Temperature 97.9 F 05/17/24 14:59 Pulse Rate 52 L 05/17/24 18:22 Respiratory Rate 17 05/17/24 18:22 Blood Pressure 127/66 05/17/24 18:22 Pulse Oximetry 97 05/17/24 18:22 Oxygen Delivery Nasal Cannula 05/17/24 15:15 Oxygen Flow Rate 2 05/17/24 15:15 MDM - SOB/Dyspnea MDM Narrative Medical decision making narrative: Pt sob and hypoxic and bradycardic at rehab. will get labs and ekg and cxr. bnp elevated pvc and oncxr so look like chf, ekg non acute. glucose 30. Pt given d 50 and awoke and fed and pt better. will recheck sugar and admit. lasix given.discussed with Lisa and agrees to admit Lab Data 05/17/24 16:00 05/17/24 16:00 Labs: Lab Results 05/17/24 05/17/24 05/17/24 Range/Units 16:00 16:25 16:30 WBC 6.5 (4.5-10.0) K/mm3 RBC 3.75 L (4.2-5.4) M/mm3 Hgb 11.9 L (12.0-15.0) g/dL Hct 36.9 L (37.0-47.0) % MCV 98.4 (80-100) fl MCH 31.7 (26-34) pg MCHC 32.2 (32-36) g/dl RDW 12.9 (11.5-14.5) % Plt Count 204 (150-375) k/mm3 MPV 11.2 H (7.4-10.4) fl Immature Gran % (Auto) 0.3 (0-0.5) % Neut % (Auto) 55.0 (45.5-73.1) % Lymph % (Auto) 24.3 (18.3-44.2) % [place] % (Auto) 11.9 H (2.6-8.5) % Eos % (Auto) 7.4 H (0-4.4) % Baso % (Auto) 1.1 (0.2-1.2) % Lymph # (Auto) 1.57 (0.9-3.2) K/mm3 [place] # (Auto) 0.8 H (0.1-0.6) K/mm3 Eos # (Auto) 0.5 H (0-0.3) K/mm3 Baso # (Auto) 0.1 (0.0-0.1) K/mm3 Abs Immat Gran (auto) 0.02 (0.00-0.031) K/mm3 Absolute Neuts (auto) 3.5 (1.3-6.7) K/mm3 Absolute Nucleated RBC 0.000 (0.0-0.012) K/mm3 Nucleated RBC % 0.0 (0.0-0.2) % PT 15.5 H (11.1-14.7) Seconds INR 1.2 APTT 32.8 (22.3-36.8) Seconds D-Dimer 0.47 (<0.48) ug/mL Sodium 141 (137-145) mmol/L Potassium 4.7 (3.4-5.0) mmol/L Chloride 103 (98-107) mmol/L Carbon Dioxide 31 H (22-30) mmol/L Anion Gap 7 (4-12) mmol/L BUN 34 H D (7-17) mg/dL Creatinine 1.06 H (0.7-1.0) mg/dL Estim Creat Clear Calc 38 ml/min Estimated GFR 50 L (59 - ) Glucose < 30 L* (65-110) mg/dL POC Capillary Glucose 34 L* (65-105) mg/dl Calcium 9.6 (8.4-10.2) mg/dL Magnesium 1.8 (1.6-2.3) mg/dL Total Bilirubin 0.4 (0.2-1.3) mg/dL AST 20 (14-36) U/L ALT 16 (6-35) U/L Alkaline Phosphatase 49 (38-126) U/L Troponin I 0.025 (0.000-0.034) ng/mL NT-Pro-B Natriuret Pep 1510 H (19.9-100) pg/mL Total Protein 7.0 (6.3-8.2) g/dL Albumin 4.0 (3.5-5.1) g/dL Influenza A (RT-PCR) Negative (Negative) Influenza B (RT-PCR) Negative (Negative) RSV (RT-PCR) Negative (Negative) SARS-CoV-2 RNA (RT-PCR) Negative (Negative) 05/17/24 Range/Units 17:44 WBC (4.5-10.0) K/mm3 RBC (4.2-5.4) M/mm3 Hgb (12.0-15.0) g/dL Hct (37.0-47.0) % MCV (80-100) fl MCH (26-34) pg MCHC (32-36) g/dl RDW (11.5-14.5) % Plt Count (150-375) k/mm3 MPV (7.4-10.4) fl Immature Gran % (Auto) (0-0.5) % Neut % (Auto) (45.5-73.1) % Lymph % (Auto) (18.3-44.2) % [place] % (Auto) (2.6-8.5) % Eos % (Auto) (0-4.4) % Baso % (Auto) (0.2-1.2) % Lymph # (Auto) (0.9-3.2) K/mm3 [place] # (Auto) (0.1-0.6) K/mm3 Eos # (Auto) (0-0.3) K/mm3 Baso # (Auto) (0.0-0.1) K/mm3 Abs Immat Gran (auto) (0.00-0.031) K/mm3 Absolute Neuts (auto) (1.3-6.7) K/mm3 Absolute Nucleated RBC (0.0-0.012) K/mm3 Nucleated RBC % (0.0-0.2) % PT (11.1-14.7) Seconds INR APTT (22.3-36.8) Seconds D-Dimer (<0.48) ug/mL Sodium (137-145) mmol/L Potassium (3.4-5.0) mmol/L Chloride (98-107) mmol/L Carbon Dioxide (22-30) mmol/L Anion Gap (4-12) mmol/L BUN (7-17) mg/dL Creatinine (0.7-1.0) mg/dL Estim Creat Clear Calc ml/min Estimated GFR (59 - ) Glucose (65-110) mg/dL POC Capillary Glucose 94 (65-105) mg/dl Calcium (8.4-10.2) mg/dL Magnesium (1.6-2.3) mg/dL Total Bilirubin (0.2-1.3) mg/dL AST (14-36) U/L ALT (6-35) U/L Alkaline Phosphatase (38-126) U/L Troponin I (0.000-0.034) ng/mL NT-Pro-B Natriuret Pep (19.9-100) pg/mL Total Protein (6.3-8.2) g/dL Albumin (3.5-5.1) g/dL Influenza A (RT-PCR) (Negative) Influenza B (RT-PCR) (Negative) RSV (RT-PCR) (Negative) SARS-CoV-2 RNA (RT-PCR) (Negative) ABG Data ABG results: 05/17/24 15:39 Puncture Site Right radial ABG pH 7.373 ABG pCO2 49.9 H ABG pO2 68.4 L ABG PO2/FiO2 Ratio 2.44 ABG HCO3 28.4 H ABG O2 Saturation 93.1 L ABG O2 Content 15.9 L ABG Base Excess 2.4 A-a Gradient 72.4 Oxyhemoglobin 91.6 Total Hemoglobin 12.3 O2 Delivery Device Nasal cannula O2 Liters/Min 2.0 FiO2 28 ECG Data EKG #1: Interpretation: sinus david rate [address] or t wave changes Discharge Plan Discharge Clinical Impression: Hypoglycemia CHF (congestive heart failure) Qualifiers: Heart failure type: diastolic Heart failure chronicity: chronic Qualified Code(s): I50.32 - Chronic diastolic (congestive) heart failure Patient Disposition: Still a Patient Condition: Stable Patient Language: Icelandic Prescriptions: No Action coenzyme Q10 [CoQ-10] 100 mg Capsule 200 mg PO DAILY (DME) FreeStyle Haritha 3 [place] Misc See Rx Instructions .Route Qty: 2 1RF Rx Instructions: As directed (DME) FreeStyle Haritha 3 Sensor Device See Rx Instructions .Route Qty: 4 4RF Rx Instructions: As directed rosuvastatin 10 mg tablet 10 mg PO QPM Qty: 90 3RF paroxetine HCl 20 mg tablet 30 mg PO DAILY Qty: 135 2RF memantine 5 mg tablet 5 mg PO BID Qty: 60 2RF trazodone 50 mg tablet 50 mg PO QHS Qty: 90 3RF aspirin 81 mg tablet,chewable 81 mg PO QPM Qty: 90 2RF enalapril maleate 10 mg tablet 20 mg PO DAILY Qty: 90 4RF pantoprazole [Protonix] 40 mg tablet,delayed release (DR/EC) 40 mg PO QAM 28 Days Qty: 10 0RF carvedilol 25 mg tablet 25 mg PO BID ondansetron 4 mg tablet,disintegrating 4 mg PO Q8H PRN (Reason: nausea and vomiting) Qty: 10 0RF insulin aspart U-100 [Novolog FlexPen U-100 Insulin] 100 unit/mL (3 mL) insulin pen 20 unit subcut TIDWM Qty: 15 0RF Rx Instructions: 20 unit subcutaneously TID WITH MEALS divalproex [Depakote] 125 mg tablet,delayed release (DR/EC) 125 mg PO BID Qty: 60 3RF rivaroxaban 20 mg tablet 20 mg PO QPM Qty: 90 0RF insulin degludec [Tresiba FlexTouch U-200] 200 unit/mL (3 mL) insulin pen 30 unit SUBCUT DAILY Qty: 9 0RF Follow-up/Referrals: Bassem,Ernestina Jain MD [Primary Care Provider] -
[2024-05-17 16:11] LABS: Basophils Absolute Auto 0.1 K/mm3 (0.0-0.1); Basophils Percent Auto 1.1 % (0.2-1.2); Eosinophils Absolute Auto 0.5 K/mm3 (0-0.3); Eosinophils Percent Auto 7.4 % (0-4.4); Hematocrit 36.9 % (37.0-47.0); Hemoglobin 11.9 g/dL (12.0-15.0); Immature Granulocyte Absolute 0.02 K/mm3 (0.00-0.031); Immature Granulocyte Percent A 0.3 % (0-0.5); Lymphocytes Absolute Auto 1.57 K/mm3 (0.9-3.2); Lymphocytes Percent Auto 24.3 % (18.3-44.2); Mean Corpuscular HGB Conc 32.2 g/dl (32-36); Mean Corpuscular Hemoglobin 31.7 pg (26-34); Mean Corpuscular Volume 98.4 fl (80-100); Mean Platelet Volume 11.2 fl (7.4-10.4); Monocytes Absolute Auto 0.8 K/mm3 (0.1-0.6); Monocytes Percent Auto 11.9 % (2.6-8.5); Neutrophils Absolute Auto 3.5 K/mm3 (1.3-6.7); Platelet Count Result 204 k/mm3 (150-375); Red Blood Count 3.75 M/mm3 (4.2-5.4); Red Cell Distribution Width 12.9 % (11.5-14.5); White Blood Count 6.5 K/mm3 (4.5-10.0)
[2024-05-17 16:21] LABS: INR 1.2; Magnesium 1.8 mg/dL (1.6-2.3); Prothrombin Time 15.5 Seconds (11.1-14.7)
[2024-05-17 16:22] LABS: Partial Thromboplastin Time 32.8 Seconds (22.3-36.8)
[2024-05-17 16:25] LABS: D Dimer 0.47 ug/mL (<0.48)
[2024-05-17 16:29] LABS: Alanine Aminotransferase 16 U/L (6-35); Alkaline Phosphatase 49 U/L (38-126); Anion Gap 7 mmol/L (4-12); Aspartate Amino Transferase 20 U/L (14-36); Bilirubin,Total 0.4 mg/dL (0.2-1.3); Blood Urea Nitrogen 34 mg/dL (7-17); Calcium 9.6 mg/dL (8.4-10.2); Carbon Dioxide 31 mmol/L (22-30); Chloride 103 mmol/L (98-107); Estimated CRCL calculation 38 ml/min; Estimated Glomerular Filt Rate 50; Glucose < 30 mg/dL (65-110); Potassium 4.7 mmol/L (3.4-5.0); Sodium 141 mmol/L (137-145)
[2024-05-17 16:31] LABS: NT Pro B Type Natriuretic Pept 1510 pg/mL (19.9-100)
[2024-05-17 16:33] LABS: Troponin I 0.025 ng/mL (0.000-0.034)
[2024-05-17 16:33] LABS: Glucose Point of Care 34 mg/dl (65-105)
[2024-05-17] MEDS: DEXTROSE 50% 25 GM/50 ML SYRINGE IV PUSH (16:33)
[2024-05-17] MEDS: DEXTROSE 50% 25 GM/50 ML SYRINGE (16:40)
[2024-05-17 17:13] LABS: Influenza A QL RT-PCR Negative (Negative); Influenza B QL RT-PCR Negative (Negative); RSV RNA, RT-PCR Negative (Negative); SARS-CoV-2 RNA PCR Negative (Negative)
[2024-05-17 17:48] LABS: Glucose Point of Care 94 mg/dl (65-105)
[2024-05-17] MEDS: FUROSEMIDE INJ 40 MG/4 ML VIAL IV PUSH (18:21)
--- NOTE | 2024-05-17 20:03 | PC.NURSE ---
Patient awake and oriwnted-has removed the nasal cannula - Its bothering me --room air O2 sat is 95%
--- NOTE | 2024-05-17 20:04 | PC.NURSE ---
Mary-daughter called at [phone] and given patients admit room number 242
--- NOTE | 2024-05-17 20:51 | ADMGEN ---
This patient, Ana M Junior, was admitted to 2 Medical Room 242-01. Patient/family oriented to hospital policies and general routines including ID bracelet, bed and alarms, visiting hours, pain management, procedures, bathroom and other care routines, personal items, smoking policy, room service/diet, and visiting hours. Information on how to activate the Rapid Response Team has been discussed. Patient/Family are encouraged to report perceived risks to care and to ask questions if they do not understand what they are told or what they should do.
[2024-05-17 21:00] LABS: Glucose Point of Care 97 mg/dl (65-105)
[2024-05-17 21:22] LABS: Troponin I 0.021 ng/mL (0.000-0.034)
[2024-05-17 22:08] LABS: Glucose Point of Care 89 mg/dl (65-105)
--- NOTE | 2024-05-17 22:52 | P.HP_ITS ---
H&P: HPI History of Present Illness Date/Time: 05/17/24 22:52 Chief Complaint: Shortness of breath, bradycardia Narrative: This is a pleasant 79-year-old female with a past medical history insulin-dependent diabetes mellitus, dementia, CAD status post CABG, paroxysmal atrial fibrillation, history of CVA, essential hypertension, hyperlipidemia, diabetic neuropathy, CHF. Per chart review the patient was at rehab on the day of admission to [place] [address] when her heart rate dropped to 40s and had low saturation in the 80s. Patient reports she had been short of breath for a while and had increasing lower extremity edema. ER troponin negative, BNP elevated with chest x-ray demonstrating pulmonary edema. Glucose was 30. Patient was given D50 and appear early improved. She was given Lasix 40 mg IV x1. Review of Systems Review of Systems: All systems reviewed & are unremarkable except as noted in HPI and below (HPI) [facility] Past Medical History Medical History Acute CVA (cerebrovascular accident) Benign essential hypertension CHF (congestive heart failure) Coronary artery disease Cystocele with uterine prolapse Status post colpopexy. 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 History of lumbar laminectomy History of tonsillectomy and adenoidectomy History of total abdominal hysterectomy and bilateral salpingo-oophorectomy History of vein stripping Family History Family History Mother History of stroke Other Diabetes mellitus Sibling Alzheimer disease Social History Social History Social History: Surrogate medical decision maker: Mary Martinez, daughter. Code status: Full code. Smoking packs per day: 1 Smoking cigarettes per day: 20.0 Years smoked: 30 Smoking pack-years: 30.00 Smoking status: Former smoker Tobacco type: cigarettes Second hand tobacco smoke exposure: No Alcohol intake: never Substance use: never Substance use type: does not use Do You Feel Safe in your Home?: Yes Lack of Transportation: No Lack of Food: Never True Current Housing: I Have Housing Concerned About Future Housing: No Difficulty Paying Gas/Electric Bills: No Difficulty Paying for Meds: No Currently Unemployed: No Education: High School Diploma/GED Difficulty w/ Childcare or Family Care: No Living arrangements: with family Occupation/Education: retired Gender identity (if verbalized by the patient): Female Sexual Orientation (if Verbalized by the Patient): Straight or Heterosexual Spiritual care concerns: No Agree to blood products: Yes Meds Home Medications and Allergies Home Medications ?Medication ?Instructions ?Recorded ?Confirmed ?Type coenzyme Q10 100 mg capsule 200 mg PO DAILY 02/18/23 05/17/24 History (CoQ-10) blood-glucose meter,continuous #2 ea 09/23/23 05/17/24 Rx (FreeStyle Haritha 3 [place]) aspirin 81 mg chewable tablet 81 mg PO QPM #90 tabs 10/21/23 05/17/24 Rx blood-glucose sensor (FreeStyle #4 ea 02/01/24 05/17/24 Rx Haritha 3 Sensor device) memantine 5 mg tablet 5 mg PO BID #60 tabs 02/01/24 05/17/24 Rx paroxetine HCl 20 mg tablet 30 mg (1.5 x 20 mg) PO DAILY #135 02/01/24 05/17/24 Rx tabs rosuvastatin 10 mg tablet 10 mg PO QPM #90 tabs 02/01/24 05/17/24 Rx trazodone 50 mg tablet 50 mg PO QHS #90 tabs 02/01/24 05/17/24 Rx pantoprazole 40 mg tablet,delayed 40 mg PO QAM 4 weeks #10 tabs 02/17/24 05/17/24 Rx release (Protonix) insulin aspart U-100 100 unit/mL 20 unit (0.2 mL) subcut TIDWM #15 02/21/24 05/17/24 Rx (3 mL) subcutaneous pen (Novolog mL FlexPen U-100 Insulin aspart) enalapril maleate 10 mg tablet 20 mg (2 x 10 mg) PO DAILY #90 tabs 03/01/24 05/17/24 Rx divalproex 125 mg tablet,delayed 125 mg PO BID #60 tabs 03/09/24 05/17/24 Rx release (Depakote) carvedilol 25 mg tablet 25 mg PO BID 03/11/24 05/17/24 History ondansetron 4 mg disintegrating 4 mg PO Q8H PRN nausea and 03/21/24 05/17/24 Rx tablet vomiting #10 tabs rivaroxaban 20 mg tablet 20 mg PO QPM #90 tabs 03/28/24 05/17/24 Rx dextrose 40 % oral gel (Glucose 20 g PO Q15M PRN hypoglycemia 05/17/24 05/17/24 History Gel) furosemide 20 mg tablet 20 mg PO DAILY 05/17/24 05/17/24 History glucagon 1 mg/0.2 mL subcutaneous 1 mg subcut PRN PRN blood sugar 05/17/24 05/17/24 History auto-injector (Gvoke HypoPen less than 60 unable to swallow 1-Pack) insulin degludec 200 unit/mL (3 40 unit subcut DAILY 05/17/24 05/17/24 History mL) subcutaneous pen (Tresiba FlexTouch U-200 insulin) Allergies Allergy/AdvReac Type Severity Reaction Status Date / Time No Known Allergies Allergy Verified 03/10/24 14:16 Vital Signs Vital Signs - 24 hr 05/17/24 14:59 05/17/24 14:59 05/17/24 15:15 Temperature 97.9 F Pulse Rate 53 L 50 L Respiratory Rate 16 Blood Pressure 128/56 L Pulse Oximetry 95 93 Oxygen Delivery Nasal Cannula Nasal Cannula Oxygen Flow Rate 2 2 05/17/24 16:00 05/17/24 17:30 05/17/24 18:22 Temperature Pulse Rate 60 51 L 52 L Respiratory Rate 20 17 17 Blood Pressure 173/61 H 114/53 L 127/66 Pulse Oximetry 94 93 97 Oxygen Delivery Oxygen Flow Rate 05/17/24 19:30 05/17/24 20:03 05/17/24 20:08 Temperature Pulse Rate 53 L 57 L Respiratory Rate 18 15 Blood Pressure 131/53 L 131/55 L Pulse Oximetry 95 97 97 Oxygen Delivery Room Air Oxygen Flow Rate 05/17/24 21:29 05/17/24 22:27 Temperature 96.9 F L Pulse Rate 51 L Respiratory Rate 12 Blood Pressure 152/55 H Pulse Oximetry 98 98 Oxygen Delivery Nasal Cannula Oxygen Flow Rate 1 Exam Const: General: comfortable and no acute distress Eyes: Pupils: Equal, round and reactive pupils present Neck: Neck: supple Resp: Effort & Inspection: normal respiratory effort Auscultation: clear to auscultation bilaterally Cardio: Rate: regular rate Rhythm: regular rhythm GI: GI Palp: Yes Soft to palpation and No Tenderness to palpation present (GI) Extrem: General: edema (2+ pitting edema bilateral lower extremities below the knees) H&P: Results Labs Labs: Short CBC 05/17/24 Range/Units 16:00 WBC 6.5 (4.5-10.0) K/mm3 Hgb 11.9 L (12.0-15.0) g/dL Hct 36.9 L (37.0-47.0) % Plt Count 204 (150-375) k/mm3 BMP 05/17/24 16:00 Sodium 141 Potassium 4.7 Chloride 103 Carbon Dioxide 31 H BUN 34 H D Creatinine 1.06 H Glucose < 30 L* Calcium 9.6 Cardiac Enzymes 05/17/24 05/17/24 Range/Units 16:00 20:49 Troponin I 0.025 0.021 (0.000-0.034) ng/mL Liver Function 05/17/24 Range/Units 16:00 Total Bilirubin 0.4 (0.2-1.3) mg/dL AST 20 (14-36) U/L ALT 16 (6-35) U/L Alkaline Phosphatase 49 (38-126) U/L Albumin 4.0 (3.5-5.1) g/dL Assessment and Plan Assessment and plan (1) Acute hypoxemic respiratory failure: Code(s): J96.01 - Acute respiratory failure with hypoxia Status: Acute (2) Acute decompensated heart failure: Code(s): I50.9 - Heart failure, unspecified Status: Acute (3) Hypoglycemia: Code(s): E16.2 - Hypoglycemia, unspecified Status: Acute (4) Bradycardia: Code(s): R00.1 - Bradycardia, unspecified Status: Acute Plan This is a pleasant 79-year-old female with a past medical history insulin-dependent diabetes mellitus, dementia, CAD status post CABG, paroxysmal atrial fibrillation, history of CVA, essential hypertension, hyperlipidemia, diabetic neuropathy, CHF. Per chart review the patient was at rehab on the day of admission to [place] [address] when her heart rate dropped to 40s and had low saturation in the 80s. Patient reports she had been short of breath for a while and had increasing lower extremity edema. ER troponin negative, BNP elevated with chest x-ray demonstrating pulmonary edema. Glucose was 30. Patient was given D50 and appear early improved. She was given Lasix 40 mg IV x1. ----- On the medical-surgical floor the patient is resting comfortably without complaints. She reports she has urinated a lot. Acute decompensated heart failure -CHF has been documented by her PCP but not by wireless team member she is on Lasix however there is no echocardiogram on file. Chest x-ray demonstrated pulmonary edema and she has had increasing lower extremity edema per self report. Given Lasix 40 mg IV x1. Tomorrow continue with her DRYING FRAME OPERATOR Lasix 20 mg p.o. q.day, strict intake/output, daily weights, 1500 cc fluid restriction per 24 hours. Check 2D echocardiogram. Acute hypoxic respiratory failure -resolved. She has been weaned off of oxygen status post Lasix. She breathes comfortably resting in bed. Hypoglycemia -now resolved. Will not continue her DRYING FRAME OPERATOR insulin just yet. Accu- Cheks a.c. HS with low-dose sliding scale and increase as needed. Sinus bradycardia -she has a history of atrial fibrillation and is on Coreg. She also had hypoxia. Improved status post resolution of hypoxia. Hold Coreg for now. Continue with telemetry, currently she is in normal sinus rhythm. Troponin negative ----- Xarelto Telemetry Fall risk Bed rest Patient wishes to be DNR. Hospitalist [facility] Advance Care Plan I have confirmed that the patient's Advanced Care Plan is present, code status is documented, or surrogate decision maker is listed in patient medical record.: Yes Medication Reconciliation I have utilized all available resources to obtain, update and review the patients current medications (includes all prescriptions, OTC, herbals, cannabis, and nutritional supplements).: Yes
[2024-05-18] VITALS (9 sets, daily range): BP systolic 149–159; BP diastolic 53–58; PULSE 52–60; RESP 16–18; TEMP 36.4–36.9; O2SAT 91–94
--- NOTE | 2024-05-18 | ECHO_ITS ---
Patient Info Name: Ana M Junior Age: 79 years : 1945 Gender: Female Ht: 64 in Wt: 179 lbs BSA: 1.94 m2 HR: 57 bpm BP: 159 / 53 mmHg Technical Quality: Good Exam Date: 05/18/2024 9:00 AM Exam Location: Echo Lab Patient Status: Inpatient Admit Date: 05/18/2024 Staff Ordering Physician: Maria Guadalupe Mesa MD Township Clerk: Candy Jones RDCS Attending Provider: Kelsey Catalan APRN Exam Type: CA echo doppler color flow Study Info Indications - HEART FAILURE Complete two-dimensional, color flow and Doppler transthoracic echocardiogram is performed. Summary 1. Complete two-dimensional, color flow and Doppler transthoracic echocardiogram is performed. 2. Left ventricular chamber dimension is normal. 3. Left ventricular systolic function is normal, estimated at 55-60%. 4. There is moderate concentric increased left ventricular wall thickness. 5. The left ventricular diastolic function is abnormal. 6. E/e' 17 is elevated. 7. Left atrial chamber dimension is moderately enlarged. 8. Right atrial chamber dimension is moderately enlarged. 9. There is mild aortic valve sclerosis. 10. The mitral valve has moderately calcified annulus. 11. There is moderate to severe mitral valve regurgitation. 12. There is moderate tricuspid valve regurgitation. 13. Mild pulmonary hypertension, estimated pulmonary arterial systolic pressure is 40 mmHg. Left Ventricle E/e' 17 is elevated. Left ventricular chamber dimension is normal. Left ventricular systolic function is normal, estimated at 55-60%. There is moderate concentric increased left ventricular wall thickness. The left ventricular diastolic function is abnormal. Right Ventricle Right ventricular chamber dimension is normal. Right ventricular systolic function is normal. Left Atria Left atrial chamber dimension is moderately enlarged. Right Atria Right atrial chamber dimension is moderately enlarged. Aortic Valve The aortic valve is trileaflet. There is mild aortic valve sclerosis. There is no aortic valve stenosis. There is no aortic valve regurgitation. Pulmonic Valve There is no pulmonic regurgitation. Mitral Valve The mitral valve has moderately calcified annulus. There is no mitral valve stenosis. There is moderate to severe mitral valve regurgitation. Tricuspid Valve There is moderate tricuspid valve regurgitation. Mild pulmonary hypertension, estimated pulmonary arterial systolic pressure is 40 mmHg. Pericardium/Pleural There is no pericardial effusion. Inferior Vena Cava Normal inferior vena cava with >50% collapse upon inspiration consistent with normal right atrial pressure, 5 mmHg. Aorta The aortic root size at the sinus of Valsalva is normal. Left Ventricular Outflow Tract Name Value Normal LVOT 2D LVOT Diameter 1.8 cm LVOT Doppler LVOT Peak Gradient 7 mmHg LVOT Mean Gradient 4 mmHg LVOT VTI 35 cm LVOT VTI/AV VTI Ratio 0.9 LVOT Stroke Volume 87 ml LVOT CO 4.7 l/min LVOT CI 2.4 l/min/m2 Pulmonic Valve Name Value Normal RVOT Doppler RVOT Peak Gradient 3 mmHg PV Doppler PV Peak Gradient 4 mmHg Mitral Valve Name Value Normal MV Doppler MV Decel [place] 543 cm/s2 MV PHT 66 ms MV Area (PHT) 3.3 cm2 4.0-5.0 MV Regurgitation Doppler MR Peak Gradient 112 mmHg MV Diastolic Function MV E Peak Velocity 124 cm/s MV A Peak Velocity 122 cm/s MV E/A 1.0 MV Decel Time 229 ms Tricuspid Valve Name Value Normal TV Regurgitation Doppler TR Peak Velocity 297 cm/s TR Peak Gradient 33 mmHg Estimated PAP/RSVP RA Pressure 5 mmHg <=5 PA Systolic Pressure 40 mmHg <36 RV Systolic Pressure 40 mmHg <36 Aorta Name Value Normal Ascending Aorta Ao Root Diameter (MM) 3.5 cm Ao Root Diam Index (MM) 1.8 cm/m2 Aortic Valve Name Value Normal AV Doppler AV Peak Velocity 155 cm/s AV Peak Gradient 10 mmHg AV Mean Gradient 5 mmHg AV VTI 37 cm AV Area (Cont Eq VTI) 2.3 cm2 >=3.0 AV Area (Cont Eq Jamey) 2.2 cm2 AV Regurgitation 2D LVOT Area 2.5 cm2 Ventricles Name Value Normal LV Dimensions 2D/MM IVS Diastolic Thickness (2D) 1.5 cm 0.6-1.0 IVS Diastole Thickness (MM) 1.1 cm 0.6-0.9 LVID Diastole (2D) 5.9 cm 3.8-5.2 LVID Diastole (MM) 5.4 cm 3.8-5.2 LVIW Diastolic Thickness (2D) 1.0 cm 0.6-0.9 LVIW Diastolic Thickness (MM) 1.4 cm 0.6-0.9 LVID Systole (2D) 4.2 cm 2.2-3.5 LVID Systole (MM) 3.2 cm 2.2-3.5 LVOT Diameter 1.8 cm LV Mass (2D Cubed) 308.03 g 67.00-162.00 LV Mass Index (2D Cubed) 159 g/m2 43-95 Relative Wall Thickness (2D) 0.33 LV Mass (MM Cubed) 283.08 g 67.00-162.00 LV Mass Index (MM Cubed) 146 g/m2 43-95 Relative Wall Thickness (MM) 0.52 LV Fractional Shortening/Ejection Fraction 2D/MM LV Fractional Shortening (2D) 29 % 27-45 LV Fractional Shortening (MM) 40 % 27-45 LV EF (MM Teicholz) 70 % 54-74 LV EF (2D Teicholz) 55 % 54-74 LV Diastolic Volume (4C MOD) 92 ml LV EF (4C MOD) 50 % LV Diastolic Volume (2C MOD) 118 ml LV EF (2C MOD) 50 % LV Diastolic Volume (BP MOD) 104 ml 46-106 LV Diastolic Volume Index (BP MOD) 53 ml/m2 29-61 LV Systolic Volume (BP MOD) 52 ml 14-42 LV Systolic Volume Index (BP MOD) 27 ml/m2 8-24 LV EF (BP MOD) 50 % 54-74 LV Diastolic Length (4C) 8.5 cm LV Systolic Length (4C) 7.3 cm LV Stroke Volume (4C MOD) 46 ml Atria Name Value Normal LA Dimensions LA Dimension (MM) 4.6 cm 2.7-3.8 LA Volume (4C A-L) 83 ml LA Volume (BP A-L) 81 ml RA Dimensions RA Area (4C) 22.4 cm2 <=18.0 Report Signatures
[2024-05-18 05:02] LABS: Hematocrit 36.4 % (37.0-47.0); Hemoglobin 11.4 g/dL (12.0-15.0); Mean Corpuscular HGB Conc 31.3 g/dl (32-36); Mean Corpuscular Hemoglobin 30.7 pg (26-34); Mean Corpuscular Volume 98.1 fl (80-100); Mean Platelet Volume 11.8 fl (7.4-10.4); Platelet Count Result 192 k/mm3 (150-375); Red Blood Count 3.71 M/mm3 (4.2-5.4); Red Cell Distribution Width 12.8 % (11.5-14.5); White Blood Count 8.3 K/mm3 (4.5-10.0)
[2024-05-18 05:30] LABS: Anion Gap 9 mmol/L (4-12); Blood Urea Nitrogen 34 mg/dL (7-17); Calcium 9.6 mg/dL (8.4-10.2); Carbon Dioxide 30 mmol/L (22-30); Chloride 99 mmol/L (98-107); Estimated CRCL calculation 43 ml/min; Estimated Glomerular Filt Rate 57; Glucose 198 mg/dL (65-110); Magnesium 1.7 mg/dL (1.6-2.3); Sodium 138 mmol/L (137-145)
[2024-05-18 08:24] LABS: Glucose Point of Care 148 mg/dl (65-105)
--- NOTE | 2024-05-18 09:15 | PCOTNOTE ---
Attempted occupational therapy evaluation, however, unable to due to ECHO being in with patient. Will continue to follow and evaluate when able.
[2024-05-18] MEDS: MEMANTINE 5 MG TABLET PO ×2 (09:52→20:40)
[2024-05-18] MEDS: DIVALPROEX SODIUM DR 125 MG TABEC PO ×2 (09:52→20:40)
[2024-05-18] MEDS: FUROSEMIDE 20 MG TABLET PO (09:52)
[2024-05-18] MEDS: PANTOPRAZOLE 40 MG TABLET PO (09:52)
[2024-05-18] MEDS: ENALAPRIL MALEATE 10 MG TABLET 20 MG PO (09:52)
[2024-05-18] MEDS: PARoxetine 10 MG TABLET 30 MG PO (09:53)
--- NOTE | 2024-05-18 10:37 | P.PNIM_ITS ---
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 * Chest x-ray demonstrated pulmonary edema. * Given Lasix 40 mg IV x1. * Tomorrow continue with her [employer] Lasix 20 mg p.o. q.day * strict intake/output, daily weights * 1500 cc fluid restriction per 24 hours * Check 2D echocardiogram. 05/18: * switched to LV lasix 20mg BID will transition back to PO in the AM (3) Hypoglycemia: Code(s): E16.2 - Hypoglycemia, unspecified Status: Acute Assessment and Plan: patient was hypoglycemic upon arrival to the emergency department at 30 was given an amp of D50 which at this time has now resolved * will hold diabetic medication * initiate SSI low-dose * Accu-Cheks a.cJeffery HS * hypoglycemic protocol (4) Bradycardia: Code(s): R00.1 - Bradycardia, unspecified Status: Acute Assessment and Plan: patient also with sinus bradycardia history of AFib * will hold patient's Coreg at this time * resumed her Xarelto * continuous practice lead * echocardiogram pending * troponins negative Plan Code status: DNR DVT prophylaxis: Eliquis Stress ulcer prophylaxis: Protonix 40 daily PT/OT notes: Pending Disposition: Patient was admitted to the medical unit for acute respiratory failure with hypoxia likely secondary to CHF exacerbation will continue with IV Lasix today likely transitioned to oral tomorrow now that she has been weaned back to room air echocardiogram pending PT and OT evaluation patient is from assisted living plan will be to return at discharge. Time Spent With Patient Time with patient: 15 - 25 minutes Subjective Date/time seen: 05/18/24 10:37 Interval history: patient is 79-year-old female who was admitted for acute on chronic congestive heart failure exacerbation and hypoglycemia. 05/18/2024: assumed Care Patient up in chair denying SOB at this time weaned to room air. Blood sugars stable. Denied any N/V, CP, ABD pain. Review of Systems Review of Systems: All systems reviewed & are unremarkable except as noted in HPI and below (Intermittent confusion at baseline) Exam Narrative: * GENERAL: Alert and oriented x 1 to 2 at baseline. No acute distress. * EYES: PERRLA. * HEENT: Moist mucous membranes. * LUNGS: diminished to auscultation bilaterally. No accessory muscle use. * CARDIOVASCULAR: Regular rate and rhythm.S1-S2 * ABDOMEN: Soft, non tenderness * EXTREMITIES: No edema. Non-tender * SKIN: No rashes or lesions. Skin warm, dry. * NEUROLOGIC: No focal neurological deficits. CN II-XII grossly intact Objective Data Vital Signs Vital Signs: Vital Signs - 24 hr 05/17/24 14:59 05/17/24 14:59 05/17/24 15:15 Temperature 97.9 F Pulse Rate 53 L 50 L Respiratory Rate 16 Blood Pressure 128/56 L Pulse Oximetry 95 93 Oxygen Delivery Nasal Cannula Nasal Cannula Oxygen Flow Rate 2 2 05/17/24 16:00 05/17/24 17:30 05/17/24 18:22 Temperature Pulse Rate 60 51 L 52 L Respiratory Rate 20 17 17 Blood Pressure 173/61 H 114/53 L 127/66 Pulse Oximetry 94 93 97 Oxygen Delivery Oxygen Flow Rate 05/17/24 19:30 05/17/24 20:03 05/17/24 20:08 Temperature Pulse Rate 53 L 57 L Respiratory Rate 18 15 Blood Pressure 131/53 L 131/55 L Pulse Oximetry 95 97 97 Oxygen Delivery Room Air Oxygen Flow Rate 05/17/24 20:53 05/17/24 21:29 05/17/24 22:27 Temperature 96.9 F L Pulse Rate 51 L 51 L Respiratory Rate 12 Blood Pressure 152/55 H Pulse Oximetry 98 98 Oxygen Delivery Nasal Cannula Oxygen Flow Rate 1 05/17/24 23:08 05/18/24 00:00 05/18/24 04:00 Temperature Pulse Rate 59 L 57 L Respiratory Rate Blood Pressure Pulse Oximetry 95 Oxygen Delivery Room Air Oxygen Flow Rate 05/18/24 04:15 Temperature 98.4 F Pulse Rate 57 L Respiratory Rate 16 Blood Pressure 159/53 H Pulse Oximetry 94 Oxygen Delivery Oxygen Flow Rate Intake/Output Intake/Output: Intake & Output 05/15/24 05/16/24 05/17/24 05/18/24 23:59 23:59 23:59 23:59 Intake Total 577 Output Total 800 1300 Balance -800 -723 Meds/Results Medications: Active Medications Generic Name Dose Route Start Last Admin Trade Name Freq PRN Reason Stop Dose Admin Aspirin 81 mg 05/18/24 18:00 Aspirin 81 Mg Chewable Tablet PO QPM JANETTE Dextrose 12.5 gm 05/17/24 22:51 Dextrose 50% 25 Gm/50 Ml Syringe IV PUSH PRN PRN Hypoglycemia Protocol Divalproex Sodium 125 mg 05/18/24 09:00 05/18/24 09:[address] 125 Mg Tabec PO 125 mg Q12HR [facility] Administration Enalapril Maleate 20 mg 05/18/24 09:00 05/18/24 09:52 Enalapril Maleate 10 Mg Tablet PO 20 mg DAILY JANETTE Administration Glucagon 1 mg 05/17/24 22:51 Glucagon For Inj 1 Mg Vial IM PRN PRN Hypoglycemia Protocol Glucose 15 gm 05/17/24 22:51 Glucose Oral Gel 15 Gm Of Glucse In 37.5 Gm Tube PO PRN PRN Hypoglycemia Protocol Dextrose 1,000 mls @ 100 mls/hr 05/17/24 22:51 Dextrose 5% 1,000 Ml IVPB PRN PRN Hypoglycemia Protocol Insulin Aspart 2 - 5 units 05/18/24 08:00 05/18/24 08:20 Insulin Aspart (*Bkc) 100 Units/Ml SUB-Q Not Given TIDWM JANETTE Protocol Insulin Aspart 1 - 2 units 05/18/24 21:00 Insulin Aspart (*Bkc) 100 Units/Ml SUB-Q HS JANETTE Protocol Memantine 5 mg 05/18/24 09:00 05/18/24 09:52 Memantine 5 Mg Tablet PO 5 mg Q12HR JANETTE Administration Pantoprazole Sodium 40 mg 05/18/24 09:00 05/18/24 09:52 Pantoprazole 40 Mg Tablet PO 40 mg QAM JANETTE Administration Paroxetine HCl 30 mg 05/18/24 09:00 05/18/24 09:53 Paroxetine 10 Mg Tablet PO 30 mg DAILY JANETTE Administration Perflutren Lipid Microsphere 0 ml 05/17/24 22:57 Perflutren Lipid Microspheres 1.5 Ml Vial Diluted To 10 Ml Total Volume IV PUSH 05/20/24 22:57 ONCE PRN adequate visualization Protocol Rivaroxaban 20 mg 05/18/24 18:00 Rivaroxaban 20 Mg Tablet PO QPM JANETTE Rosuvastatin Calcium 10 mg 05/18/24 18:00 Rosuvastatin 10 Mg Tablet PO QPM JANETTE Trazodone HCl 50 mg 05/18/24 21:00 Trazodone Hcl 50 Mg Tablet PO QHS [facility] Radiology Results: ITS Impressions Chest X-Ray 05/17/24 16:09 IMPRESSION: Mild pulmonary vascular congestion, without focal infiltrate or effusion. Labs Labs: Laboratory Results - last 24 hr 05/17/24 05/17/24 05/17/24 15:39 16:00 16:25 WBC 6.5 RBC 3.75 L Hgb 11.9 L Hct 36.9 L MCV 98.4 MCH 31.7 MCHC 32.2 RDW 12.9 Plt Count 204 MPV 11.2 H Immature Gran % (Auto) 0.3 Neut % (Auto) 55.0 Lymph % (Auto) 24.3 [place] % (Auto) 11.9 H Eos % (Auto) 7.4 H Baso % (Auto) 1.1 Lymph # (Auto) 1.57 [place] # (Auto) 0.8 H Eos # (Auto) 0.5 H Baso # (Auto) 0.1 Abs Immat Gran (auto) 0.02 Absolute Neuts (auto) 3.5 Absolute Nucleated RBC 0.000 Nucleated RBC % 0.0 PT 15.5 H INR 1.2 APTT 32.8 D-Dimer 0.47 Puncture Site Right radial ABG pH 7.373 ABG pCO2 49.9 H ABG pO2 68.4 L ABG PO2/FiO2 Ratio 2.44 ABG HCO3 28.4 H ABG O2 Saturation 93.1 L ABG O2 Content 15.9 L ABG Base Excess 2.4 A-a Gradient 72.4 Oxyhemoglobin 91.6 Total Hemoglobin 12.3 O2 Delivery Device Nasal cannula O2 Liters/Min 2.0 FiO2 28 Sodium 141 Potassium 4.7 Chloride 103 Carbon Dioxide 31 H Anion Gap 7 BUN 34 H D Creatinine 1.06 H Estim Creat Clear Calc 38 Estimated GFR 50 L Glucose < 30 L* POC Capillary Glucose Calcium 9.6 Magnesium 1.8 Total Bilirubin 0.4 AST 20 ALT 16 Alkaline Phosphatase 49 Troponin I 0.025 NT-Pro-B Natriuret Pep 1510 H Total Protein 7.0 Albumin 4.0 Influenza A (RT-PCR) Negative Influenza B (RT-PCR) Negative RSV (RT-PCR) Negative SARS-CoV-2 RNA (RT-PCR) Negative 05/17/24 05/17/24 05/17/24 16:30 17:44 20:49 WBC RBC Hgb Hct MCV MCH MCHC RDW Plt Count MPV Immature Gran % (Auto) Neut % (Auto) Lymph % (Auto) [place] % (Auto) Eos % (Auto) Baso % (Auto) Lymph # (Auto) [place] # (Auto) Eos # (Auto) Baso # (Auto) Abs Immat Gran (auto) Absolute Neuts (auto) Absolute Nucleated RBC Nucleated RBC % PT INR APTT D-Dimer Puncture Site ABG pH ABG pCO2 ABG pO2 ABG PO2/FiO2 Ratio ABG HCO3 ABG O2 Saturation ABG O2 Content ABG Base Excess A-a Gradient Oxyhemoglobin Total Hemoglobin O2 Delivery Device O2 Liters/Min FiO2 Sodium Potassium Chloride Carbon Dioxide Anion Gap BUN Creatinine Estim Creat Clear Calc Estimated GFR Glucose POC Capillary Glucose 34 L* 94 Calcium Magnesium Total Bilirubin AST ALT Alkaline Phosphatase Troponin I 0.021 NT-Pro-B Natriuret Pep Total Protein Albumin Influenza A (RT-PCR) Influenza B (RT-PCR) RSV (RT-PCR) SARS-CoV-2 RNA (RT-PCR) 05/17/24 05/17/24 05/18/24 20:56 21:36 04:26 WBC 8.3 RBC 3.71 L Hgb 11.4 L Hct 36.4 L MCV 98.1 MCH 30.7 MCHC 31.3 L RDW 12.8 Plt Count 192 MPV 11.8 H Immature Gran % (Auto) Neut % (Auto) Lymph % (Auto) [place] % (Auto) Eos % (Auto) Baso % (Auto) Lymph # (Auto) [place] # (Auto) Eos # (Auto) Baso # (Auto) Abs Immat Gran (auto) Absolute Neuts (auto) Absolute Nucleated RBC Nucleated RBC % PT INR APTT D-Dimer Puncture Site ABG pH ABG pCO2 ABG pO2 ABG PO2/FiO2 Ratio ABG HCO3 ABG O2 Saturation ABG O2 Content ABG Base Excess A-a Gradient Oxyhemoglobin Total Hemoglobin O2 Delivery Device O2 Liters/Min FiO2 Sodium 138 Potassium 5.0 Chloride 99 Carbon Dioxide 30 Anion Gap 9 BUN 34 H Creatinine 0.94 Estim Creat Clear Calc 43 Estimated GFR 57 L Glucose 198 H POC Capillary Glucose 97 89 Calcium 9.6 Magnesium 1.7 Total Bilirubin AST ALT Alkaline Phosphatase Troponin I NT-Pro-B Natriuret Pep Total Protein Albumin Influenza A (RT-PCR) Influenza B (RT-PCR) RSV (RT-PCR) SARS-CoV-2 RNA (RT-PCR) 05/18/24 08:18 WBC RBC Hgb Hct MCV MCH MCHC RDW Plt Count MPV Immature Gran % (Auto) Neut % (Auto) Lymph % (Auto) [place] % (Auto) Eos % (Auto) Baso % (Auto) Lymph # (Auto) [place] # (Auto) Eos # (Auto) Baso # (Auto) Abs Immat Gran (auto) Absolute Neuts (auto) Absolute Nucleated RBC Nucleated RBC % PT INR APTT D-Dimer Puncture Site ABG pH ABG pCO2 ABG pO2 ABG PO2/FiO2 Ratio ABG HCO3 ABG O2 Saturation ABG O2 Content ABG Base Excess A-a Gradient Oxyhemoglobin Total Hemoglobin O2 Delivery Device O2 Liters/Min FiO2 Sodium Potassium Chloride Carbon Dioxide Anion Gap BUN Creatinine Estim Creat Clear Calc Estimated GFR Glucose POC Capillary Glucose 148 H Calcium Magnesium Total Bilirubin AST ALT Alkaline Phosphatase Troponin I NT-Pro-B Natriuret Pep Total Protein Albumin Influenza A (RT-PCR) Influenza B (RT-PCR) RSV (RT-PCR) SARS-CoV-2 RNA (RT-PCR) Quality VTE Prophylaxis VTE prophylaxis: pharmacologic ordered -Patient's previous records reviewed on admission -ER notes reviewed in detail on admission -discussed all findings and current treatment plan with patient/Family/POA -Consultations reviewed for recommendations -Patient's disposition for safe discharge discussed with block and case maker Dictation performed by [employer] direct speech recognition software, therefore hotel maintenance worker variants and typographical errors may occur. Hospitalist MIPS Advance Care Plan I have confirmed that the patient's Advanced Care Plan is present, code status is documented, or surrogate decision maker is listed in patient medical record.: Yes Medication Reconciliation I have utilized all available resources to obtain, update and review the patients current medications (includes all prescriptions, OTC, herbals, cannabis, and nutritional supplements).: Yes The patient is not eligible for med reconciliation; the patient is in a emergent medical situation where delaying treatment would jeopardize the patients health.: No
[2024-05-18 11:52] LABS: Glucose Point of Care 278 mg/dl (65-105)
[2024-05-18] MEDS: INSULIN ASPART (*BKC) 100 UNITS/ML SUB-Q ×2 (12:08→17:01)
[2024-05-18] MEDS: FUROSEMIDE INJ 40 MG/4 ML VIAL 20 MG IV PUSH (16:35)
[2024-05-18 16:50] LABS: Glucose Point of Care 244 mg/dl (65-105)
[2024-05-18] MEDS: RIVAROXABAN 20 MG TABLET PO (17:01)
[2024-05-18] MEDS: ROSUVASTATIN 10 MG TABLET PO (17:02)
[2024-05-18] MEDS: ASPIRIN 81 MG CHEWABLE TABLET PO (17:02)
[2024-05-18] MEDS: traZODone HCL 50 MG TABLET PO (20:40)
[2024-05-18 22:21] LABS: Glucose Point of Care 198 mg/dl (65-105)
[2024-05-19] VITALS: PULSE 54
[2024-05-19 03:21] VITALS: BP 166/57; PULSE 56; RESP 20; TEMP 36.4; O2SAT 95
[2024-05-19 04:00] VITALS: PULSE 56
[2024-05-19 04:43] LABS: Hematocrit 39.1 % (37.0-47.0); Hemoglobin 12.5 g/dL (12.0-15.0); Mean Corpuscular Hemoglobin 31.3 pg (26-34); Mean Corpuscular Volume 97.8 fl (80-100); Mean Platelet Volume 11.7 fl (7.4-10.4); Platelet Count Result 196 k/mm3 (150-375); Red Cell Distribution Width 12.7 % (11.5-14.5); White Blood Count 6.5 K/mm3 (4.5-10.0)
[2024-05-19 04:53] LABS: Alanine Aminotransferase 16 U/L (6-35); Albumin Level 4.1 g/dL (3.5-5.1); Alkaline Phosphatase 51 U/L (38-126); Anion Gap 8 mmol/L (4-12); Aspartate Amino Transferase 23 U/L (14-36); Bilirubin,Total 0.7 mg/dL (0.2-1.3); Blood Urea Nitrogen 36 mg/dL (7-17); Calcium 9.9 mg/dL (8.4-10.2); Carbon Dioxide 33 mmol/L (22-30); Chloride 96 mmol/L (98-107); Estimated CRCL calculation 48 ml/min; Estimated Glomerular Filt Rate > 60; Glucose 167 mg/dL (65-110); Potassium 4.4 mmol/L (3.4-5.0); Sodium 137 mmol/L (137-145)
[2024-05-19 08:34] LABS: Glucose Point of Care 182 mg/dl (65-105)
[2024-05-19] MEDS: DIVALPROEX SODIUM DR 125 MG TABEC PO (09:00)
[2024-05-19] MEDS: MEMANTINE 5 MG TABLET PO (09:00)
[2024-05-19] MEDS: PANTOPRAZOLE 40 MG TABLET PO (09:00)
[2024-05-19] MEDS: PARoxetine 10 MG TABLET 30 MG PO (09:00)
[2024-05-19] MEDS: ENALAPRIL MALEATE 10 MG TABLET 20 MG PO (09:00)
[2024-05-19] MEDS: FUROSEMIDE INJ 40 MG/4 ML VIAL 20 MG IV PUSH (09:06)
[2024-05-19 10:05] VITALS: BMI 29.1
[2024-05-19 12:21] LABS: Glucose Point of Care 278 mg/dl (65-105)
[2024-05-19] MEDS: INSULIN ASPART (*BKC) 100 UNITS/ML SUB-Q (12:28)
--- NOTE | 2024-05-19 14:32 | P.DS_ITS ---
DS: Admitting Diagnosis Discharge Date 05/19/2024 Admitting Diagnosis -Patient's previous records reviewed on admission -ER notes reviewed in detail on admission -discussed all findings and current treatment plan with patient/Family/POA -Consultations reviewed for recommendations -Patient's disposition for safe discharge discussed with case management associate Dictation performed by [employer] direct speech recognition software, therefore mounted police variants and typographical errors may occur. DS: Discharge Diagnosis Discharge Diagnosis (1) Acute hypoxemic respiratory failure: Code(s): J96.01 - Acute respiratory failure with hypoxia Status: Acute Assessment and Plan: RESOLVED (2) Acute decompensated heart failure: Code(s): I50.9 - Heart failure, unspecified Status: Acute Assessment and Plan: Continue Lasix 20mg (3) Hypoglycemia: Code(s): E16.2 - Hypoglycemia, unspecified Status: Acute Assessment and Plan: Monitor blood sugars snack prior to bed (4) Bradycardia: Code(s): R00.1 - Bradycardia, unspecified Status: Acute Assessment and Plan: * Decreased Coreg to 6.25 BID * Follow-up with Cardiology Plan Disposition: Discharged to SNF DS: Summary Hospital Course Reason for hospitalization: Acute respiratory failure with hypoxia secondary to acute on chronic heart failure and hypoglycemia Hospital Course: Patient was a 79-year-old female with a past medical history insulin- dependent diabetes mellitus, dementia, CAD status post CABG, paroxysmal atrial fibrillation, history of CVA, essential hypertension, hyperlipidemia, diabetic neuropathy, CHF. Per chart review the patient was at rehab on the day of admission to [place] [address] when her heart rate dropped to 40s and had low saturation in the 80s. Glucose was 30. Patient was given D50 and appear early improved. She was given Lasix 40 mg IV x1. ----- Patient was admitted to the medical unit for further evaluation and treatment of acute respiratory failure with hypoxia, CHF exacerbation and hypoglycemia. Acute decompensated heart failure -CHF has been documented by her PCP but not by woodwind reeds cutter she is on Lasix however there is no echocardiogram on file. Chest x-ray demonstrated pulmonary edema and she has had increasing lower extremity edema per self report. Given Lasix 40 mg IV x1. She was continued on her BACK TACKER Lasix 20 mg p.o. q.day, strict intake/output, daily weights, 1500 cc fluid restriction per 24 hours. Follow-up echocardiogram diastolic dysfunction LVEF of 55-60% with severe MR, moderate TR and mild pulmonary hypertension Acute hypoxic respiratory failure -resolved. She has been weaned off of oxygen status post Lasix. She breathes comfortably resting in bed. Hypoglycemia -resolved. was Placed on Accu-Cheks a.c. HS with low-dose sliding scale resumed her previous home insulin at discharge and as encourage to monitor BS and eat a snack prior to bedtime Sinus bradycardia -she has a history of atrial fibrillation and is on Coreg. She she was hypoxic but improved status post resolution of her hypoxia. Coreg was held . Continue with telemetry, currently she is in normal sinus rhythm. Troponin negative, upon discharge her Coreg was decreased to 6.25 BID with need to F/U with Cardiology. Patient seen assist a discharge up in chair with no complaints denied any chest pain or shortness of breath overall improvement of symptoms room air patient was discharged back to [facility] facility. Status at Discharge Functional status at discharge: uses cane/walker Overall status at discharge: patient is back to baseline Time Spent with Patient Time attestation: Total time spent providing and/or coordinating discharge services: Time spent: Greater than 30 minutes Exam Narrative: * GENERAL: Alert and oriented x 1 to 2 at baseline. No acute distress. * EYES: PERRLA. * HEENT: Moist mucous membranes. * LUNGS: diminished to auscultation bilaterally. No accessory muscle use. * CARDIOVASCULAR: Regular rate and rhythm.S1-S2 * ABDOMEN: Soft, non tenderness * EXTREMITIES: No edema. Non-tender * SKIN: No rashes or lesions. Skin warm, dry. * NEUROLOGIC: No focal neurological deficits. CN II-XII grossly intact DS: Data Data Completed and Pending Labs on day of discharge: Labs from last 24 hours 05/19/24 05/19/24 05/19/24 12:16 08:30 03:46 WBC 6.5 RBC 4.00 L Hgb 12.5 Hct 39.1 MCV 97.8 MCH 31.3 MCHC 32.0 RDW 12.7 Plt Count 196 MPV 11.7 H Sodium 137 Potassium 4.4 Chloride 96 L Carbon Dioxide 33 H Anion Gap 8 BUN 36 H Creatinine 0.81 Estim Creat Clear Calc 48 Estimated GFR > 60 Glucose 167 H POC Capillary Glucose 278 H 182 H Calcium 9.9 Total Bilirubin 0.7 AST 23 ALT 16 Alkaline Phosphatase 51 Total Protein 7.0 Albumin 4.1 05/18/24 05/18/24 20:14 16:41 WBC RBC Hgb Hct MCV MCH MCHC RDW Plt Count MPV Sodium Potassium Chloride Carbon Dioxide Anion Gap BUN Creatinine Estim Creat Clear Calc Estimated GFR Glucose POC Capillary Glucose 198 H 244 H Calcium Total Bilirubin AST ALT Alkaline Phosphatase Total Protein Albumin Preliminary micro results at discharge 05/17/24 16:04 Blood Culture - Preliminary Blood Staphylococcus hominis 05/17/24 16:25 Blood Culture - Preliminary Blood Imaging Radiologist's impression: Radiology Results: ITS Impressions Chest X-Ray 05/17/24 16:09 IMPRESSION: Mild pulmonary vascular congestion, without focal infiltrate or effusion. Discharge Plan Discharge Attending physician on discharge: Erick Ordonez Discharging Clinician: Kelsey Catalan Anticipated Discharge Date/Time: 05/19/24 12:08 Patient Disposition: NH Senior Living/Asst Living Activity: may shower and as tolerated Diet: heart healthy Discharge Instructions: CHF: * Heart healthy/low sodium diet/Carb control * Weights weekly monitor for significant increase * Follow-up with Cardiology outpatient * Continue with oral Lasix as prescribed Bradycardia * Your heart is currently 60 BPM during your hospitalization but reviewing prior admission this seems to be chronic I have lowered your Carvedilol to 6.25 MG BID and would like you to follow-up with you Dental Equipment Mechanic outpatient within 1 to 2 weeks Hypoglycemia x 1 episode * Encouraged to monitor glucose ACHS * hypoglycemia occurred in the morning recommend a snack prior to bedtime * Last A1C 13.00 uncontrolled diabetes recommended follow-up with brusher operator outpatient How can you care for yourself at home? ? Keep track of any new symptoms or changes in your symptoms. ? Rest until you feel better. ? Be safe with medicines. Take your medicines exactly as prescribed. Call your doctor if you think you are having a problem with your medicine. ? Do not drive after taking a prescription pain medicine. ? Ensure to follow-up with primary care physician as indicated and provide updated medication list provided to you at discharge. When should you call for help? Call 911 anytime you think you may need emergency care. For example, call if: ? You passed out (lost consciousness). Call your doctor now or seek immediate medical care if: ? You have new symptoms like fever, difficulty breathing, Chest pain, vomiting, or rash. ? You have new or different pain. ? You are confused and are having trouble thinking clearly. ? Your symptoms are getting worse. Watch closely for changes in your health, and be sure to contact your doctor if: ? You do not get better as expected. Patient Instructions: Antibiotic Form, Rivaroxaban (By mouth), Heart Failure (DC), Hypoglycemia in a Person with Diabetes (DC), Bradycardia (DC), Low-Sodium Diet (DC), Type 2 Diabetes in the Older Adult (DC), Diabetes and Nutrition (DC), Type 2 Diabetes Management for Adults (DC) Patient Language: Micronesian Stand Alone Forms: General Discharge Information Follow-up/Referrals: José Antonio Rodgers DO [Physician] - 1 Week (Medication dosage change) Bassem,Ernestina Jain MD [Primary Care Provider] - 2 Weeks Discharge Medications: New carvedilol [Coreg] 6.25 mg tablet 6.25 mg PO BID Qty: 60 0RF Rx Instructions: must administer with a meal/food Continued coenzyme Q10 [CoQ-10] 100 mg Capsule 200 mg PO DAILY (DME) FreeStyle Haritha 3 Stark Misc See Rx Instructions .Route Qty: 2 1RF Rx Instructions: As directed (DME) FreeStyle Haritha 3 Sensor Device See Rx Instructions .Route Qty: 4 4RF Rx Instructions: As directed rosuvastatin 10 mg tablet 10 mg PO QPM Qty: 90 3RF paroxetine HCl 20 mg tablet 30 mg PO DAILY Qty: 135 2RF memantine 5 mg tablet 5 mg PO BID Qty: 60 2RF trazodone 50 mg tablet 50 mg PO QHS Qty: 90 3RF aspirin 81 mg tablet,chewable 81 mg PO QPM Qty: 90 2RF enalapril maleate 10 mg tablet 20 mg PO DAILY Qty: 90 4RF pantoprazole [Protonix] 40 mg tablet,delayed release (DR/EC) 40 mg PO QAM 28 Days Qty: 10 0RF ondansetron 4 mg tablet,disintegrating 4 mg PO Q8H PRN (Reason: nausea and vomiting) Qty: 10 0RF Gvoke HypoPen 1-Pack 1 mg/0.2 mL auto-injector 1 mg SUBCUT PRN PRN (Reason: blood sugar less than 60 unable to swallow) dextrose [Glucose Gel] 40 % gel 20 g PO Q15M PRN (Reason: hypoglycemia) Rx Instructions: until symptoms of low blood sugar are controlled blood sugar greater than 60 furosemide 20 mg tablet 20 mg PO DAILY insulin degludec [Tresiba FlexTouch U-200] 200 unit/mL (3 mL) insulin pen 40 unit SUBCUT DAILY insulin aspart U-100 [Novolog FlexPen U-100 Insulin] 100 unit/mL (3 mL) insulin pen 20 unit subcut TIDWM Qty: 15 0RF Rx Instructions: 20 unit subcutaneously TID WITH MEALS divalproex [Depakote] 125 mg tablet,delayed release (DR/EC) 125 mg PO BID Qty: 60 3RF rivaroxaban 20 mg tablet 20 mg PO QPM Qty: 90 0RF Discontinued carvedilol 25 mg tablet 25 mg PO BID Date of admission: 05/18/24 09:05 Primary Care Provider: BassemErnestina Admitting Provider: Maria Guadalupe Mesa Attending physician on admission: Kelsey Catalan Condition: Stable Quality VTE Prophylaxis VTE prophylaxis: pharmacologic ordered -Patient's previous records reviewed on admission -ER notes reviewed in detail on admission -discussed all findings and current treatment plan with patient/Family/POA -Consultations reviewed for recommendations -Patient's disposition for safe discharge discussed with case management associate Dictation performed by [employer] direct speech recognition software, therefore mounted police variants and typographical errors may occur. Hospitalist MIPS Heart Failure (Exclusion) Patient has history of Heart Transplant or Left Ventricular Assistive Device?: No IF YES, STOP HERE Heart Failure (Qualifier) Patient has current or prior documentation of LVEF less than or equal to 40%, or mod/servere depressed LVSF?: No IF NO, STOP HERE
== END 2024-05-19 14:55 | DRG 189 ==
LOC: ANHED 17:32 → ANH3MEDSUR 19:25 → ANH2MED 19:56
PROVIDERS: Admitting Provider General Practice; Emergency Provider Emergency Medicine; PCP Family Medicine; Visit Provider Nurse Practitioner Family
DX: J96.01 Acute respiratory failure with hypoxia (principal); I50.9 Heart failure, unspecified; E16.2 Hypoglycemia, unspecified; E11.9 Type 2 diabetes mellitus without complications; F03.90 Unspecified dementia, unspecified severity, without behavioral disturbance, psychotic disturbance, mood disturbance, and anxiety; E78.5 Hyperlipidemia, unspecified; E11.42 Type 2 diabetes mellitus with diabetic polyneuropathy; E11.319 Type 2 diabetes mellitus with unspecified diabetic retinopathy without macular edema; I25.10 Atherosclerotic heart disease of native coronary artery without angina pectoris; I48.0 Paroxysmal atrial fibrillation; I11.0 Hypertensive heart disease with heart failure; I25.5 Ischemic cardiomyopathy; I25.2 Old myocardial infarction; R00.1 Bradycardia, unspecified; Z66 Do not resuscitate; Z79.01 Long term (current) use of anticoagulants; Z79.4 Long term (current) use of insulin; Z95.1 Presence of aortocoronary bypass graft; Z86.73 Personal history of transient ischemic attack (TIA), and cerebral infarction without residual deficits; Z20.822 Contact with and (suspected) exposure to COVID-19
CPT/HCPCS: 36415; 36600; 71045; 80048; 80053; 82805; 82948; 83735; 83880; 84484; 85018; 85025; 85027; 85380; 85610; 85730; 87040; 87181; 87637; 93005; 93306; 96374; 96375; 97110; 97161; 97165; 97530; 99285; A9270; G0378; J1815; J1940

== ENCOUNTER 2024-05-23 04:00 | Emergency (ER) | payer MEDICARE, OTHER, SELFPAY ==
--- NOTE | ~2024-05-23 | XR_ITS ---
Right Knee Technique: AP, lateral, and sunrise views were obtained. Clinical History: Injury Findings: No fracture or dislocation is seen. Osseous alignment is anatomic. There is mild degenerati ve change of the medial compartment.. There is mild chondrocalcinosis of the menisci. Small joint eff usion is seen. Impression: Small joint effusion. Mild chondrocalcinosis of the menisci, and mild degenerative change, as above. Reviewed, dictated and finalized at location M. LING AGENCY MANAGER Impression: Small joint effusion. Mild chondrocalcinosis of the menisci, and mild degenerative change, as above.
[2024-05-23 03:56] VITALS: BP 173/60; PULSE 51; RESP 20; TEMP 36.7; O2SAT 90
[2024-05-23] MEDS: HYDROcodone/acetaminophen (*CRX) 5-325 MG TABLET 1 TAB PO (04:18)
[2024-05-23 04:30] VITALS: BP 161/66; PULSE 63; TEMP 36.7; O2SAT 90
--- NOTE | 2024-05-23 05:10 | ED.GENADULT ---
HPI - General Adult General Chief complaint: Extremity Injury, Lower Stated complaint: R KNEE PAIN S/P FALL YESTERDAY AM History of Present Illness HPI narrative: This is 79-year-old female presenting with right knee pain after a fall yesterday morning at breakfast. Patient has dementia and is not a good historian. No other injuries. No pain anywhere else. Related Data Home Medications ?Medication ?Instructions ?Recorded ?Confirmed ?Last Taken ?Type coenzyme Q10 100 mg capsule 200 mg PO DAILY 02/18/23 05/17/24 09/21/23 21:00 History (CoQ-10) dextrose 40 % oral gel (Glucose 20 g PO Q15M PRN hypoglycemia 05/17/24 05/17/24 Unknown History Gel) furosemide 20 mg tablet 20 mg PO DAILY 05/17/24 05/17/24 Unknown History glucagon 1 mg/0.2 mL subcutaneous 1 mg subcut PRN PRN blood sugar 05/17/24 05/17/24 Unknown History auto-injector (Gvoke HypoPen less than 60 unable to swallow 1-Pack) insulin degludec 200 unit/mL (3 40 unit subcut DAILY 05/17/24 05/17/24 Unknown History mL) subcutaneous pen (Tresiba FlexTouch U-200 insulin) Allergies Allergy/AdvReac Type Severity Reaction Status Date / Time No Known Allergies Allergy Verified 03/10/24 14:16 [facility] Past Medical History Medical History Acute CVA (cerebrovascular accident) Benign essential hypertension CHF (congestive heart failure) Coronary artery disease Cystocele with uterine prolapse Status post colpopexy. 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 History of lumbar laminectomy History of tonsillectomy and adenoidectomy History of total abdominal hysterectomy and bilateral salpingo-oophorectomy History of vein stripping Family History Family History Mother History of stroke Other Diabetes mellitus Sibling Alzheimer disease Social History Social History Social History: Surrogate medical decision maker: Mary Martinez, daughter. Code status: Full code. Smoking packs per day: 1 Smoking cigarettes per day: 20.0 Years smoked: 30 Smoking pack-years: 30.00 Smoking status: Former smoker Tobacco type: cigarettes Second hand tobacco smoke exposure: No Alcohol intake: never Substance use: never Substance use type: does not use Do You Feel Safe in your Home?: Yes Lack of Transportation: No Lack of Food: Never True Current Housing: I Have Housing Concerned About Future Housing: No Difficulty Paying Gas/Electric Bills: No Difficulty Paying for Meds: No Currently Unemployed: No Education: High School Diploma/GED Difficulty w/ Childcare or Family Care: No Living arrangements: with family Occupation/Education: retired Gender identity (if verbalized by the patient): Female Sexual Orientation (if Verbalized by the Patient): Straight or Heterosexual Spiritual care concerns: No Agree to blood products: Yes Exam Narrative: APPEARANCE: No apparent distress. Head: atraumatic. EYES: EOMI, NOSE: Atraumatic NECK: Trachea midline RESPIRATORY: No increased rate of breathing CARDIOVASCULAR: RRR, ABDOMINAL: Non-distended MUSCULOSKELETAl: Focal exam of the right knee showed no obvious deformities. Small effusion. Not warm to touch. Some pain with active and passive range of motion. NEURO: Alert. Moving 4/4 extremities SKIN:: Warm, dry. Normal color PSYCHIATRIC: Normal affect Course Vital Signs Vital signs: Vital Signs Temperature 98.1 F 05/23/24 03:56 Pulse Rate 51 L 05/23/24 03:56 Respiratory Rate 20 05/23/24 03:56 Blood Pressure 173/60 H 05/23/24 03:56 Pulse Oximetry 90 05/23/24 03:56 Oxygen Delivery Room Air 05/23/24 03:56 Temperature 98.1 F 05/23/24 04:30 Pulse Rate 63 05/23/24 04:30 Respiratory Rate 20 05/23/24 03:56 Blood Pressure 161/66 H 05/23/24 04:30 Pulse Oximetry 90 05/23/24 04:30 Oxygen Delivery Room Air 05/23/24 03:56 Medical Decision Making MDM Narrative Medical decision making narrative: -Course: 89 year-old female presenting with knee pain after a fall. X-rays negative for fracture. Patient given pain medication discharged back to custodial. -DDX includes but is not limited to: Soft tissue injury, bony injury, internal derangement Vital Signs Vital Signs: Vital Signs Temperature 98.1 F 05/23/24 03:56 Pulse Rate 51 L 05/23/24 03:56 Respiratory Rate 20 05/23/24 03:56 Blood Pressure 173/60 H 05/23/24 03:56 Pulse Oximetry 90 05/23/24 03:56 Oxygen Delivery Room Air 05/23/24 03:56 Temperature 98.1 F 05/23/24 04:30 Pulse Rate 63 05/23/24 04:30 Respiratory Rate 20 05/23/24 03:56 Blood Pressure 161/66 H 05/23/24 04:30 Pulse Oximetry 90 05/23/24 04:30 Oxygen Delivery Room Air 05/23/24 03:56 Discharge Plan Discharge Clinical Impression: Acute knee pain Patient Disposition: Home, Self-Care Condition: Stable Instructions: Antibiotic Form, Knee Pain (ED) Additional Instructions: Please take Tylenol for your knee pain. Please follow-up your primary care physician for further management Patient Language: East Timorese Prescriptions: New acetaminophen 500 mg tablet 1,000 mg PO TID PRN (Reason: arabella) 7 Days Qty: 42 0RF No Action coenzyme Q10 [CoQ-10] 100 mg Capsule 200 mg PO DAILY (DME) FreeStyle Haritha 3 Bonesteel Misc See Rx Instructions .Route Qty: 2 1RF Rx Instructions: As directed (DME) FreeStyle Haritha 3 Sensor Device See Rx Instructions .Route Qty: 4 4RF Rx Instructions: As directed rosuvastatin 10 mg tablet 10 mg PO QPM Qty: 90 3RF paroxetine HCl 20 mg tablet 30 mg PO DAILY Qty: 135 2RF memantine 5 mg tablet 5 mg PO BID Qty: 60 2RF trazodone 50 mg tablet 50 mg PO QHS Qty: 90 3RF aspirin 81 mg tablet,chewable 81 mg PO QPM Qty: 90 2RF enalapril maleate 10 mg tablet 20 mg PO DAILY Qty: 90 4RF pantoprazole [Protonix] 40 mg tablet,delayed release (DR/EC) 40 mg PO QAM 28 Days Qty: 10 0RF ondansetron 4 mg tablet,disintegrating 4 mg PO Q8H PRN (Reason: nausea and vomiting) Qty: 10 0RF Gvoke HypoPen 1-Pack 1 mg/0.2 mL auto-injector 1 mg SUBCUT PRN PRN (Reason: blood sugar less than 60 unable to swallow) dextrose [Glucose Gel] 40 % gel 20 g PO Q15M PRN (Reason: hypoglycemia) Rx Instructions: until symptoms of low blood sugar are controlled blood sugar greater than 60 furosemide 20 mg tablet 20 mg PO DAILY insulin degludec [Tresiba FlexTouch U-200] 200 unit/mL (3 mL) insulin pen 40 unit SUBCUT DAILY carvedilol [Coreg] 6.25 mg tablet 6.25 mg PO BID Qty: 60 0RF Rx Instructions: must administer with a meal/food insulin aspart U-100 [Novolog FlexPen U-100 Insulin] 100 unit/mL (3 mL) insulin pen 20 unit subcut TIDWM Qty: 15 0RF Rx Instructions: 20 unit subcutaneously TID WITH MEALS divalproex [Depakote] 125 mg tablet,delayed release (DR/EC) 125 mg PO BID Qty: 60 3RF rivaroxaban 20 mg tablet 20 mg PO QPM Qty: 90 0RF Follow-up/Referrals: Bassem,Ernestina Jain MD [Primary Care Provider] -
--- OUTSIDE RECORDS SUMMARY | 2024-05-23 05:15 | XMS_ITS | Encounter Summary ---
Author Organization [facility] Address [address] [place] [address] Care Team Providers Care Neuropsychiatrist Name Role Phone Unavailable Primary Care Provider Unavailabl e Encounter Details Date Type Department Care Team (Late st Contact Info) Description 04/16/2005 Outpatient Historical [facility] Cardiovas and Thor Surg at [facility] Heart [address] [address] Richard Cotto, [place] NO ADDRESS ON FILE Social History Tobacco Use Types Packs/Day Years Used Date Smoking Tobacco: Never Assessed Comments Unknown Sex and Gender Information Value Date Recorded Sex Assigned at Not on file Legal Sex Female 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
--- OUTSIDE RECORDS SUMMARY | 2024-05-23 05:15 | XMS_ITS | Encounter Summary ---
Author Organization [facility] Address [address] [place] [address] Care Team Providers Care Healthcare Financial Analyst Name Role Phone Unavailable Primary Care Provider Unavailabl e Encounter Details Date Type Department Care Team (Late st Contact Info) Description 04/15/2005 Outpatient Historical [facility] Cardiovas and Thor Surg at [facility] Heart [address] [address] Max Jhaveri MD [address] [place] [phone] Social History Tobacco Use Types Packs/Day Years Used Date Smoking Tobacco: Never Assessed Comments Unknown Sex and Gender Information Value Date Recorded Sex Assigned at Not on file Legal Sex Female 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
--- OUTSIDE RECORDS SUMMARY | 2024-05-23 05:15 | XMS_ITS | Clinical Summary ---
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
--- OUTSIDE RECORDS SUMMARY | 2024-05-23 05:15 | XMS_ITS | Encounter Summary ---
Author Organization [facility] Address [address] [place] [address] Care Team Providers Care Mill Tender Second Operator Name Role Phone Unavailable Primary Care Provider Unavailabl e Encounter Details Date Type Department Care Team (Late st Contact Info) Description 05/20/2005 Outpatient Historical [facility] Cardiovas and Thor Surg at [facility] Heart [address] [address] Max Jhaveri MD [address] [place] [phone] Social History Tobacco Use Types Packs/Day Years Used Date Smoking Tobacco: Never Assessed Comments Unknown Sex and Gender Information Value Date Recorded Sex Assigned at Not on file Legal Sex Female 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
--- OUTSIDE RECORDS SUMMARY | 2024-05-23 05:15 | XMS_ITS | Clinical Summary ---
Author Organization [facility] [place] [address] Address [address] [place] [address] Care Team Providers Care Cylinder Press Operator Name Role Phone Catalina Mejia MD Primary Care Provider [phone] Josef Groves MD Unavailable [phone] Allergies No known active allergies Medications [...] flash glucose scanning reader ([employer] [address] [place]) [facility] [place] USE DIRECTED 1 each 1 3 Active [...] (07/22/2020): Added automatically from request for surgery [id number] Chronic cholecystitis with calculus 03/27/2020 Calculus of gallbladder with chronic cholecystitis without obstruction 03/27/2020 Overview (03/27/2020): Added automatically from request for surgery [id number] Type 2 diabetes mellitus wit h hyperglycemia, with long-term current use of insulin ([facility]) 07/15/2017 Assessment & Plan (08/11/2022 4:37 PM [...] provided as she was driving back to [place]. Instructed not to drive until all 8 [...] rosuvastatin Assessment & Plan (05/27/2022 5:14 PM TRANSFER AGENT): This is a chronic condition which is [...] care discussed. Coronary artery disease invo lving [place] coronary artery of [place] heart without angina pectoris 01/28/2017 Hx of [...] prescribed. Assessment & Plan (05/27/2022 5:15 PM TRANSFER AGENT): This is a chronic condition. goal - LDL less than 70 Continue rosuvastatin. Encouraged to eat healthy, include fresh fruits and vegetables daily and avoid eating fried foods more than once per week. Encouraged to take medications as prescribed. Repeat lipid panel ordered. Assessment & Plan (03/11/2018 8:31 AM TRANSFER AGENT): Continue statin and follow up with cardiology [...] prescribed. Assessment & Plan (05/27/2022 5:15 PM TRANSFER AGENT): This is a chronic condition which is [...] ARB Assessment & Plan (03/11/2018 8:31 AM TRANSFER AGENT): Controlled on current medications. Assessment & Plan [...] (10/05/2017): Added automatically from request for surgery [id number] Cellulitis of left lower extremity 12/28/2016 04/03/2020 [...] Farxiga. Assessment & Plan (03/11/2018 8:30 AM TRANSFER AGENT): A1c is 9.5. Increase Levemir to 34 [...] goal hba1c is under 7.0 to prevent intermediate designer diabetes complications ( eye , kidney and [...] Department Care Team Description 03/31/2024 1:53 PM TRANSFER AGENT - 03/31/2024 11:59 PM [facility] Hospital Encounter [address] [address] Discharge Disposition: Discharge to home [...] on file Legal Sex Female 10:56 AM TRANSFER AGENT Gender Identity Not on file Sexual Orientation Not on file Obstetrics History Last Filed Vital Signs Vital Sign Reading Time Taken Comments Blood Pressure 118/64 08/11/2022 4:01 PM CDT Pulse 65 05/26/2022 2:15 PM TRANSFER AGENT Temperature 36.3 C (97.3 F) 09/16/2020 8:32 AM CDT Respiratory Rate 15 09/16/2020 9:28 AM CDT Oxygen Saturation 97% 05/26/2022 2:15 PM TRANSFER AGENT Inhaled Oxygen Concentration - - Weight 81.2 [...] Pneumococcal vaccine 65+ (2 of 2 - PPSV23) 03/21/2019 01/24/2019 Depression Screening 07/01/2019 06/30/2018, 07/16/19 18 Fall Risk Assessment 09/16/2021 09/16/2020 Hemoglobin A1C 02/11/2023 08/11/2022, 05/07, 04/03/2020, Additional history exists Albumin Creatinine Ratio, Urine 06/01/2023 , 09/11/2017 Foot Exam 08/12/2023 08/11/2022, 2 05/2022, 03/10/2018, Additional history exists Influenza Vaccine (#1) 2023 01/24/2019 Lipid Panel 03/31/2025 03/31/2024, 02/2 10/2022, 07/15/2017, Additional history exists eGFR 03/31/2025 [...] Diagnosis Comments EGFR Routine 03/31/2024 10:51 AM TRANSFER AGENT DIFFERENTIAL AUTO Routine 03/31/2024 10: 51 AM TRANSFER AGENT LIPID PANEL Routine 03/31/2024 10:51 AM TRANSFER AGENT CBC WITH AUTO DIFFERENTIAL Routine 03/31/2024 10:51 AM TRANSFER AGENT GLUCOSE, RANDOM (OUTREACH) Routine 03/31/2024 10:51 AM TRANSFER AGENT COMPREHENSIVE METABOLIC PANEL WITHOUT GLUCOSE (OUTREACH) Routine 03/31/2024 10:51 AM TRANSFER AGENT POCT HEMOGLOBIN A1C Routine 08/11/2022 4 :07 PM CDT Type 2 diabetes mellitus with hyperglycemia, with long-term current use of insulin ([facility]) ([facility]) ALBUMIN CREATININE RATIO, URINE Routine 06/01/2022 8:10 AM TRANSFER AGENT Type 2 diabetes mellitus with hyperglycemia, with long-term current use of insulin ([facility]) ([facility]) COLONOSCOPY 09/16/2020 8:22 AM CDT from Last 3 Months or Most Recently Relevant to Health Maintenance Results * Glucose, random (Outreach) (03/31/2024 10:51 AM TRANSFER AGENT) Glucose 148 70 - 199 mg/dL Comment: [...] classification and Diagnosis of Diabetes Diabetes Care 202; 46: S19-S40. Current interpretive data was last revised 2022. Blood 03/31/2024 10:5 1 AM TRANSFER AGENT 03/31/2024 2:12 PM TRANSFER AGENT us Notinfile Unknown LAB BLOOD ORDERABLES Final Res ult Performing Organization Address City/[facility]/ZIP Co de Phone Number [facility] [address] Department [place] [address] * eGFR (03/31/2024 10:51 AM TRANSFER AGENT) eGFR 82 >=60 mL/min/1. 73 m2 Comment: [...] reviewed 2021. Blood 03/31/2024 10:5 1 AM TRANSFER AGENT 03/31/2024 5:14 PM TRANSFER AGENT us Notinfile Unknown LAB BLOOD ORDERABLES Final Res ult Performing Organization Address [facility]/ZIP Co de Phone Number [facility] [address] Department [place] [address] * Differential, auto (03/31/2024 10:51 AM TRANSFER AGENT) Neutrophil abs 4.2 1.5 - 6.5 K/cumm Imm gran abs 0.0 0.0 - 0.1 K/cumm [facility] Lymphocyte abs 1.1 0.8 - 3.3 K/cumm [facility] Monocyte abs 0.6 0.2 - 0.8 K/cumm [facility] Eosinophil abs 0.3 0.0 - 0.5 K/cumm [facility] Basophil abs 0.0 0.0 - 0.1 K/cumm [facility] Neutrophil pct 67.4 % [facility] Comment: Interpretive Data Percent cell count reference ranges are not reported, since discordance with absolute values may lead to misinterpretation of CBC data. Current Interpretive Data was last revised on 2017. Imm gran pct 0.3 % [facility] Comment: Interpretive Data Percent cell count reference ranges are not reported, since discordance with absolute values may lead to misinterpretation of CBC data. Current Interpretive Data was last revised on 2017. Lymphocyte pct 17.4 % [facility] Comment: Interpretive Data Percent cell count reference ranges are not reported, since discordance with absolute values may lead to misinterpretation of CBC data. Current Interpretive Data was last revised on 2017. Monocyte pct 10.1 % [facility] Comment: Interpretive Data Percent cell count reference ranges are not reported, since discordance with absolute values may lead to misinterpretation of CBC data. Current Interpretive Data was last revised on 2017. Eosinophil pct 4.2 % [facility] Comment: Interpretive Data Percent cell count reference ranges are not reported, since discordance with absolute values may lead to misinterpretation of CBC data. Current Interpretive Data was last revised on 2017. Basophil pct 0.6 % [facility] Comment: Interpretive Data Percent cell count reference ranges are not reported, since discordance with absolute values may lead to misinterpretation of CBC data. Current Interpretive Data was last revised on 2017. Blood 03/31/2024 10:5 1 AM TRANSFER AGENT 03/31/2024 2:13 PM TRANSFER AGENT us Notinfile Unknown LAB BLOOD ORDERABLES Final Res ult [facility] [address] Department [place] [address] * Comprehensive metabolic panel, without glucose (Outreach) (03/31/2024 10:51 AM TRANSFER AGENT) Sodium 141 135 - 145 mmol/L Potassium, pl 4.7 3.3 - 4.9 mmol/L [facility] Chloride 103 97 - 110 mmol/L [facility] CO2 28 22 - 32 mmol/L [facility] Anion gap 10 2 - 15 mmol/L [facility] BUN 18 6 - 25 mg/dL [facility] Creatinine 0.74 0.60 - 1.10 mg/dL [facility] Calcium 9.7 8.5 - 10.3 mg/dL [facility] Protein, pl 6.9 6.5 - 8.5 g/dL [facility] Albumin 3.9 3.5 - 5.0 g/dL [facility] Bilirubin, total 0.3 0.1 - 1.2 mg/dL [facility] Alk phos 59 40 - 130 Units/L [facility] AST 17 10 - 45 Units/L [facility] ALT 15 7 - 45 Units/L [facility] Blood 03/31/2024 10:5 1 AM TRANSFER AGENT 03/31/2024 2:12 PM TRANSFER AGENT us Notinfile Unknown LAB BLOOD ORDERABLES Final Res ult [facility] [address] Department [place] [address] * (ABNORMAL) CBC with auto differential (03/31/2024 10:51 AM TRANSFER AGENT) WBC 6.2 3.8 - 9.9 K/cumm Hgb 12.5 11.9 - 15.5 g/dL [facility] Hct 40.3 35.6 - 45.5 % [facility] Plt 228 150 - 400 K/cumm [facility] MPV 13.1(H) 9.1 - 12.3 fL [facility] RBC 3.96 3.90 - 5.20 M/cumm [facility] MCV 101.8(H) 81.3 - 96.4 fL [facility] MCH 31.6 27.1 - 33.3 pg [facility] MCHC 31.0(L) 32.3 - 35.7 g/dL [facility] RDW CV 13.0 11.1 - 14.9 % [facility] RDW SD 48.5(H) 35.7 - 48.1 fL [facility] NRBC abs 0.00 0.00 - 0.01 K/cumm [facility] Blood 03/31/2024 10:5 1 AM TRANSFER AGENT 03/31/2024 2:13 PM TRANSFER AGENT us Notinfile Unknown LAB BLOOD ORDERABLES Final Res ult [facility] [address] Department [place] [address] * Lipid panel (03/31/2024 10:51 AM TRANSFER AGENT) Cholesterol 177 30 - 199 mg/dL Comment: [...] revised on 2017. Triglycerides 96 <=149 mg/dL [facility] Comment: Interpretive Data Ages < or = [...] revised on 2017. HDL 53 >=40 mg/dL [facility] Comment: Interpretive Data Ages < or = [...] on 2017. LDL, calculated 106 <=129 mg/dL [facility] Comment: Interpretive Data Ages < or = [...] NCEP Expert Panel. Circulation 2004;110:227 3. Brandon Sheikh et al. DANIEL Cardiol. 2020 August 03;5(5):540-548. doi: 10.1001/jamacardio.2020.0013 Current Interpretive Data was last revised on 2023. Non-HDL Cholesterol 124 mg/dL [facility] Comment: Interpretive Data Ages < or = [...] last revised on 2017. Chol/HDL ratio 3 [facility] Blood 03/31/2024 10:5 1 AM TRANSFER AGENT 03/31/2024 2:12 PM TRANSFER AGENT us Notinfile Unknown LAB BLOOD ORDERABLES Final Res ult [facility] [address] Department [place] [address] * POCT hemoglobin A1c (08/11/2022 4:07 PM CDT) Hemoglobin A1C, POC 7.2 % Blood 08/11/2022 4:07 PM CDT Yennifer Cosby NP POINT OF CARE TEST ORDERABLES F inal Result * (ABNORMAL) Albumin Creatinine Ratio, Urine (06/01/2022 8:10 AM TRANSFER AGENT) Albumin Ur 112.4 mg/L [facility] ([place]) Comment: Interpretive Data No reference range established. Current interpretive data was last revised 2018. Testing performed by: [facility], [address] [place] [address]., [id number] Creatinine Ur 107.2 mg/dL [facility] ([place]) Comment: Interpretive Data No reference range established. Current interpretive data was last revised 2018. Testing performed by: [address] [address] Albumin Creatinine Ratio, Ur 105(H) 1 - 29 mg/g [facility] ([place]) Comment:Testing performed by : [address] [address] Urine 06/01/2022 8:10 AM TRANSFER AGENT 06/01/2022 11:15 AM TRANSFER AGENT Yennifer Cosby NP LAB URINE ORDERABLES Final Resu lt [facility] ([place]) 1 [facility] [place] [address] * COLONOSCOPY (09/16/2020 8:22 AM CDT) Anatomical Region Laterality Modality Other Narrative Procedure Note Danitza Sawyer MD - 09/16/2020 8:22 AM CDT ENDOSCOPY LAB Patient Name: Ana M Junior Procedure Date: 09/16/2020 8:22 AM Admit Type: Outpatient Room: [facility] Date of : 1945 Instrument Name: [id number] [...] ofthe bowel preparation was evaluated using the BBPS(Sutton Bowel Preparation Scale) with scores of: RightColon [...] Recently Relevant to [place] [address] [employer] [facility] MEDICARE [facility] Address: [address] [address] [place] [address] [facility] [address] [place] [address] [facility] [place] [address] [facility] MEDICARE [employer] [place] [address] [employer] [facility] MEDICARE Advance Directives For more information, please contact: [phone] * Full Code (Latest Code Status on File) Date Activated Date Inactivated Comments 09/16/2020 7:53 AM 09/16/2020 1:51 PM * Full Code Date Activated Date Inactivated Comments 04/08/2020 8:07 PM 04/09/2020 3:48 PM * Full Code Date Activated Date Inactivated Comments 12/04/2019 7:00 AM 12/04/2019 1:23 PM * Full Code Date Activated Date Inactivated Comments 10/02/2019 11:59 AM 10/02/2019 5:31 PM Care Teams Cylinder Press Operator Relationship Specialty Start Date End Date Catalina Mejia MD [address] [place] [address] PCP - General Internal Medicine 09/05/19 Josef Groves MD [address] [place] [address] Consulting Physician General Surgery 04/08/20
--- OUTSIDE RECORDS SUMMARY | 2024-05-23 05:15 | XMS_ITS | Referral Summary ---
Author Organization [facility] [address] Address [address] [place] [address] Care Team Providers Care Hemming And Tacking Machine Operator Name Role Phone Catalina Mejia MD Primary Care Provider Josef Groves MD Unavailable [phone] Encounters Date Type Department Care Team Description 03/31/2024 1:53 PM DENTAL ASSISTANT TEACHER - 03/31/2024 11:59 PM DENTAL ASSISTANT TEACHER Hospital Encounter [address] [place] [address] Discharge Disposition: Discharge to home [...] flash glucose scanning reader (FreeStyle Haritha 2 [place]) [facility] [place] DIRECTED 1 each 1 3 Active [...] (07/22/2020): Added automatically from request for surgery [id number] Chronic cholecystitis with calculus 03/27/2020 Calculus of gallbladder with chronic cholecystitis without obstruction 03/27/2020 Overview (03/27/2020): Added automatically from request for surgery [id number] Type 2 diabetes mellitus wit h hyperglycemia, with long-term current use of insulin ([facility]) 07/15/2017 Assessment & Plan (08/11/2022 [...] provided as she was driving back to [employer]. Instructed not to drive until all 8 [...] rosuvastatin Assessment & Plan (05/27/2022 5:14 PM DENTAL ASSISTANT TEACHER): This is a chronic condition which is [...] care discussed. Coronary artery disease invo lving [place] coronary artery of [place] heart without angina pectoris 01/28/2017 Hx of [...] prescribed. Assessment & Plan (05/27/2022 5:15 PM DENTAL ASSISTANT TEACHER): This is a chronic condition. goal - LDL less than 70 Continue rosuvastatin. Encouraged to eat healthy, include fresh fruits and vegetables daily and avoid eating fried foods more than once per week. Encouraged to take medications as prescribed. Repeat lipid panel ordered. Assessment & Plan (03/11/2018 8:31 AM DENTAL ASSISTANT TEACHER): Continue statin and follow up with cardiology [...] prescribed. Assessment & Plan (05/27/2022 5:15 PM DENTAL ASSISTANT TEACHER): This is a chronic condition which is [...] ARB Assessment & Plan (03/11/2018 8:31 AM DENTAL ASSISTANT TEACHER): Controlled on current medications. Assessment & Plan [...] (10/05/2017): Added automatically from request for surgery [id number] Cellulitis of left lower extremity 12/28/2016 04/03/2020 [...] goal hba1c is under 7.0 to prevent skilled nursing diabetes complications ( eye , kidney and [...] Farxiga. Assessment & Plan (03/11/2018 8:30 AM DENTAL ASSISTANT TEACHER): A1c is 9.5. Increase Levemir to 34 [...] goal hba1c is under 7.0 to prevent skilled nursing diabetes complications ( eye , kidney and [...] on file Legal Sex Female 10:56 AM DENTAL ASSISTANT TEACHER Gender Identity Not on file Sexual Orientation Not on file Last Filed Vital Signs Vital Sign Reading Time Taken Comments Blood Pressure 118/64 08/11/2022 4:01 PM CDT Pulse 65 05/26/2022 2:15 PM DENTAL ASSISTANT TEACHER Temperature 36.3 C (97.3 F) 09/16/2020 8:32 AM CDT Respiratory Rate 15 09/16/2020 9:28 AM CDT Oxygen Saturation 97% 05/26/2022 2:15 PM DENTAL ASSISTANT TEACHER Inhaled Oxygen Concentration - - Weight 81.2 kg (179 lb) 08/11/2022 4:01 PM CDT Height 162.6 cm (5' 4 ) 08/11/2022 4:01 PM CDT Body Mass Index 30.73 08/11/2022 4:01 PM CDT Plan of Treatment Not on file Procedures Procedure Name Priority Date/Time Associated Diagnosis Comments EGFR Routine 03/31/2024 10:51 AM DENTAL ASSISTANT TEACHER DIFFERENTIAL AUTO Routine 03/31/2024 10: 51 AM DENTAL ASSISTANT TEACHER LIPID PANEL Routine 03/31/2024 10:51 AM DENTAL ASSISTANT TEACHER CBC WITH AUTO DIFFERENTIAL Routine 03/31/2024 10:51 AM DENTAL ASSISTANT TEACHER GLUCOSE, RANDOM (OUTREACH) Routine 03/31/2024 10:51 AM DENTAL ASSISTANT TEACHER COMPREHENSIVE METABOLIC PANEL WITHOUT GLUCOSE (OUTREACH) Routine 03/31/2024 10:51 AM DENTAL ASSISTANT TEACHER POCT HEMOGLOBIN A1C Routine 08/11/2022 4 :07 PM CDT Type 2 diabetes mellitus with hyperglycemia, with long-term current use of insulin ([facility]) ([facility]) ALBUMIN CREATININE RATIO, URINE Routine 06/01/2022 8:10 AM DENTAL ASSISTANT TEACHER Type 2 diabetes mellitus with hyperglycemia, with long-term current use of insulin ([facility]) ([facility]) COLONOSCOPY 09/16/2020 8:22 AM CDT from Last 3 Months or Most Recently Relevant to Health Maintenance Results * Glucose, random (Outreach) (03/31/2024 10:51 AM DENTAL ASSISTANT TEACHER) Glucose 148 70 - 199 mg/dL Comment: [...] revised 2022. Blood 03/31/2024 10:5 1 AM DENTAL ASSISTANT TEACHER 03/31/2024 2:12 PM DENTAL ASSISTANT TEACHER us Notinfile Unknown LAB BLOOD ORDERABLES Final Res ult [facility] [address] [employer] [place] [address] * eGFR (03/31/2024 10:51 AM DENTAL ASSISTANT TEACHER) eGFR 82 >=60 mL/min/1. 73 m2 Comment: [...] reviewed 2021. Blood 03/31/2024 10:5 1 AM DENTAL ASSISTANT TEACHER 03/31/2024 5:14 PM DENTAL ASSISTANT TEACHER us Notinfile Unknown LAB BLOOD ORDERABLES Final Res ult [facility] [address] Department [place] [address] * Differential, auto (03/31/2024 10:51 AM DENTAL ASSISTANT TEACHER) Neutrophil abs 4.2 1.5 - 6.5 K/cumm Imm gran abs 0.0 0.0 - 0.1 K/cumm [facility] Lymphocyte abs 1.1 0.8 - 3.3 K/cumm [facility] Monocyte abs 0.6 0.2 - 0.8 K/cumm [facility] Eosinophil abs 0.3 0.0 - 0.5 K/cumm [facility] Basophil abs 0.0 0.0 - 0.1 K/cumm [facility] Neutrophil pct 67.4 % [facility] Comment: Interpretive Data Percent cell count reference ranges are not reported, since discordance with absolute values may lead to misinterpretation of CBC data. Current Interpretive Data was last revised on 2017. Imm gran pct 0.3 % [facility] Comment: Interpretive Data Percent cell count reference ranges are not reported, since discordance with absolute values may lead to misinterpretation of CBC data. Current Interpretive Data was last revised on 2017. Lymphocyte pct 17.4 % [facility] Comment: Interpretive Data Percent cell count reference ranges are not reported, since discordance with absolute values may lead to misinterpretation of CBC data. Current Interpretive Data was last revised on 2017. Monocyte pct 10.1 % [facility] Comment: Interpretive Data Percent cell count reference ranges are not reported, since discordance with absolute values may lead to misinterpretation of CBC data. Current Interpretive Data was last revised on 2017. Eosinophil pct 4.2 % [facility] Comment: Interpretive Data Percent cell count reference ranges are not reported, since discordance with absolute values may lead to misinterpretation of CBC data. Current Interpretive Data was last revised on 2017. Basophil pct 0.6 % [facility] Comment: Interpretive Data Percent cell count reference ranges are not reported, since discordance with absolute values may lead to misinterpretation of CBC data. Current Interpretive Data was last revised on 2017. Blood 03/31/2024 10:5 1 AM DENTAL ASSISTANT TEACHER 03/31/2024 2:13 PM DENTAL ASSISTANT TEACHER Notinfile Unknown LAB BLOOD ORDERABLES Final Res ult Performing Organization Address City/[facility]/ZIP Co de Phone Number [facility] [address] Department [employer] [place], [place] [id number] * Comprehensive metabolic panel, without glucose (Outreach) (03/31/2024 10:51 AM DENTAL ASSISTANT TEACHER) Pathologist [facility] Sodium 141 135 - 145 mmol/L Potassium, pl 4.7 3.3 - 4.9 mmol/L [facility] Chloride 103 97 - 110 mmol/L [facility] CO2 28 22 - 32 mmol/L [facility] Anion gap 10 2 - 15 mmol/L [facility] BUN 18 6 - 25 mg/dL [facility] Creatinine 0.74 0.60 - 1.10 mg/dL [facility] Calcium 9.7 8.5 - 10.3 mg/dL [facility] Protein, pl 6.9 6.5 - 8.5 g/dL [facility] Albumin 3.9 3.5 - 5.0 g/dL [facility] Bilirubin, total 0.3 0.1 - 1.2 mg/dL [facility] Alk phos 59 40 - 130 Units/L [facility] AST 17 10 - 45 Units/L [facility] ALT 15 7 - 45 Units/L [facility] Blood 03/31/2024 10:5 1 AM DENTAL ASSISTANT TEACHER 03/31/2024 2:12 PM DENTAL ASSISTANT TEACHER us Notinfile Unknown LAB BLOOD ORDERABLES Final Res ult [facility] [address] Department [place] [address] * (ABNORMAL) CBC with auto differential (03/31/2024 10:51 AM DENTAL ASSISTANT TEACHER) Pathologist [facility] WBC 6.2 3.8 - 9.9 K/cumm Hgb 12.5 11.9 - 15.5 g/dL [facility] Hct 40.3 35.6 - 45.5 % [facility] Plt 228 150 - 400 K/cumm [facility] MPV 13.1(H) 9.1 - 12.3 fL [facility] RBC 3.96 3.90 - 5.20 M/cumm [facility] MCV 101.8(H) 81.3 - 96.4 fL [facility] MCH 31.6 27.1 - 33.3 pg [facility] MCHC 31.0(L) 32.3 - 35.7 g/dL [facility] RDW CV 13.0 11.1 - 14.9 % [facility] RDW SD 48.5(H) 35.7 - 48.1 fL [facility] NRBC abs 0.00 0.00 - 0.01 K/cumm [facility] Blood 03/31/2024 10:5 1 AM DENTAL ASSISTANT TEACHER 03/31/2024 2:13 PM DENTAL ASSISTANT TEACHER us Notinfile Unknown LAB BLOOD ORDERABLES Final Res ult [facility] [address] Department [place] [address] * Lipid panel (03/31/2024 10:51 AM DENTAL ASSISTANT TEACHER) Cholesterol 177 30 - 199 mg/dL Comment: [...] revised on 2017. Triglycerides 96 <=149 mg/dL [facility] Comment: Interpretive Data Ages < or [...] revised on 2017. HDL 53 >=40 mg/dL [facility] Comment: Interpretive Data Ages < or [...] on 2017. LDL, calculated 106 <=129 mg/dL [facility] Comment: Interpretive Data Ages < or [...] revised on 2023. Non-HDL Cholesterol 124 mg/dL [facility] Comment: Interpretive Data Ages < or [...] last revised on 2017. Chol/HDL ratio 3 [facility] Blood 03/31/2024 10:5 1 AM DENTAL ASSISTANT TEACHER 03/31/2024 2:12 PM DENTAL ASSISTANT TEACHER us Notinfile Unknown LAB BLOOD ORDERABLES Final Res ult [facility] [address] Department [place] [address] * POCT hemoglobin A1c (08/11/2022 4:07 PM CDT) Hemoglobin A1C, POC 7.2 % Blood 08/11/2022 4:07 PM CDT us Yennifer Cosby NP POINT OF CARE TEST ORDERABLES F inal Result * (ABNORMAL) Albumin Creatinine Ratio, Urine (06/01/2022 8:10 AM DENTAL ASSISTANT TEACHER) Albumin Ur 112.4 mg/L [facility] ([place]) Comment: Interpretive Data No reference range established. Current interpretive data was last revised 2018. Testing performed by: [facility], [address] [place] [address], [place]., [address] Creatinine Ur 107.2 mg/dL [facility] ([place]) Comment: Interpretive Data No reference range established. Current interpretive data was last revised 2018. Testing performed by: [address] [address] Albumin Creatinine Ratio, Ur 105(H) 1 - 29 mg/g [facility] ([place]) Comment:Testing performed by : [facility] [address] [place] [address], [place]., [address] Urine 06/01/2022 8:10 AM DENTAL ASSISTANT TEACHER 06/01/2022 11:15 AM DENTAL ASSISTANT TEACHER us Yennifer Cosby NP LAB URINE ORDERABLES Final Resu lt [facility] [place]) [address] [facility] Department [place] [address] * COLONOSCOPY (09/16/2020 8:22 AM CDT) Anatomical Region Laterality Modality Other Narrative Procedure Note Danitza Sawyer MD - 09/16/2020 8:22 AM CDT ENDOSCOPY LAB Patient Name: Ana M Junior Procedure Date: 09/16/2020 8:22 AM Admit Type: Outpatient Room: [facility] Date of : 1945 Instrument [...] ofthe bowel preparation was evaluated using the BBPS([place] Bowel Preparation Scale) with scores of: RightColon [...] Recently Relevant to Health [place] [address] [employer] [facility] MEDICARE [facility] Address: [facility] [address] [place] [address] [facility] [address] [place] [address] [facility] [place] [address] [facility] MEDICARE [facility] Address: [address] [address] [place] [address] [employer] OPEN ACCESS [employer] [facility] MEDICARE Advance Directives For more information, please contact: [phone] * Full Code (Latest Code Status on File) Date Activated Date Inactivated Comments 09/16/2020 7:53 AM 09/16/2020 1:51 PM * Full Code Date Activated Date Inactivated Comments 04/08/2020 8:07 PM 04/09/2020 3:48 PM * Full Code Date Activated Date Inactivated Comments 12/04/2019 7:00 AM 12/04/2019 1:23 PM * Full Code Date Activated Date Inactivated Comments 10/02/2019 11:59 AM 10/02/2019 5:31 PM Care Teams Hemming And Tacking Machine Operator Relationship Specialty Start Date End Date Catalina Mejia MD [address] [place] [address] PCP - General Internal Medicine 09/05/19 Josef Groves MD [address] [place] [address] Consulting Physician General Surgery 04/08/20
--- OUTSIDE RECORDS SUMMARY | 2024-05-23 05:15 | XMS_ITS | Encounter Summary ---
Author Organization [email or web address] Address [address] [place] [address] Care Team Providers Care Outside Sales Engineer Name Role Phone Unavailable Primary Care Provider Unavailabl e Encounter Details Date Type Department Care Team (Late st Contact Info) Description 04/18/2005 Outpatient Historical 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
--- OUTSIDE RECORDS SUMMARY | 2024-05-23 05:15 | XMS_ITS | Encounter Summary ---
Author Organization [facility] Address 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
--- OUTSIDE RECORDS SUMMARY | 2024-05-23 05:16 | XMS_ITS | Patient Health Summary ---
Author Organization [facility] Address [address] [facility] [place] [address] Care Team Providers Care Backup Administrative Coordinator Name Role Phone Franco Randolph MD Unavailable [phone] Ernestina Luevano MD Primary Care Provider + Cirilo Buenrostro MD Unavailable [phone] Note from [facility],non-owned Affiliates and Associated Physician Practices is amultiple site organization consisting of ambulatory clinics and hospital sitesin [place], [place], [place] and [place]. This disclosure is being madepursuant to the Care Everywhere program and may not contain all information available regarding this patient. Last updated 17.[facility] Allergies No known active allergies Medications * [...] mouth once daily * Continuous Blood Gluc Surveying Crew Stake Runner (TimZon Haritha [place]) JACK(Started 05/27/2022) Inject 1 device subcutaneously continuous [...] Gluc Sensor (FreeStyle Haritha 2 Sensor Systm) [facility](Started 09/09/2022) CHANGE SENSOR EVERY 14 DAYS Active [...] peripheral neuropathy Coronary artery disease invo lving [place] coronary artery of [place] heart without angina pectoris 01/28/2017 Hx of [...] AM CDT Medical Devices Implanted Type Area Geological Technician Device Identifier Shelf Expiration Date Model / Serial / Lot Cmnt Bone Djo Srg Cblt 40gm Hvisc Strl Implanted:Qty: 1 on 08/17/2022 by Franco Randolph MD at [facility] Left: Knee DJ [employer]opedics 11/27/2023 600-15-000 / / [id number] Cmpnt Ptlr Std 28mm 3 Pg Kn Ser A Implanted:Qty: 1 on 08/17/2022 by Franco Randolph MD at [facility] Left: Knee Blanca Biomet 05/07/2027 [id number] / / [id number] Tray Tib 75mm Kn Cocr I Beam Implanted:Qty: 1 on 08/17/2022 by Franco Randolph MD at [facility] Left: Knee Blanca Biomet 08/24/2031 [id number] / / [id number] Cmpnt Fem Kn Lt Cr Cmnt Prm Vngrd Intlk 67.5 Mm Implanted:Qty: 1 on 08/17/2022 by Franco Randolph MD at [facility] Left: Knee Blanca Biomet 06/02/2032 [id number] / / [id number] Brng [id number] Vngrd Arcm Kn Ant Stab Implanted:Qty: 1 on 08/17/2022 by Franco Randolph MD at [facility] Left: Knee Blanca Biomet 05/22/2027 [id number] / / [id number] Procedures * XR KNEE LEFT 3VW(Performed 09/28/2022) [...] CARE(Performed 08/17/2022) * NEURAXIAL BLOCK(Performed 08/17/2022) * DC TOTAL KNEE REPLACEMENT(Performed 08/17/2022) * GLUCOSE - [...] - 106 mg/dL 08/18/2022 11:43 AM CDT [facility] Specimen Type Cap Fingerstick 2022 11:43 AM CDT [facility] Blood BLOOD SPECIMEN / Unknown 08/18/2022 11:39 AM CDT 08/18/2022 11:43 AM CDT Franco Randolph MD LAB - POINT OF CARE ORDERABLES [facility] [address] [place] [address] * (ABNORMAL) BASIC METABOLIC PANEL (CALCIUM TOTAL) (08/18/2022 10:10 AM CDT) Glucose 288(H) 70 - 105 mg/dL 08/18/2022 10:45 AM CDT [facility] Sodium 138 136 - 145 mmol/L 08/18/2022 10:45 AM CDT [facility] Potassium 4.6 3.5 - 5.1 mmol/L 08/18/2022 10:45 AM CDT [facility] Chloride 106 98 - 107 mmol/L 08/18/2022 10:45 AM CDT [facility] CO2 23 23 - 31 mmol/L 08/18/2022 10:45 AM CDT [facility] Calcium 9.6 8.4 - 10.4 mg/dL 08/18/2022 10:45 AM CDT [facility] Anion Gap 9 8 - 18 mmol/L 08/18/2022 10:45 AM CDT [facility] BUN 36(H) 9.8 - 20.1 mg/dL 08/18/2022 10:45 AM CDT [facility] Creatinine 1.00 0.57 - 1.11 mg/dL 08/18/2022 10:45 AM CDT [facility] eGFR by CKD-EPI 58(L) >=90 mL/min/1.7 3 m2 08/18/2022 10:45 AM CDT [facility] Blood BLOOD SPECIMEN / Unknown Venipuncture / Unknown 08/18/2022 10:10 AM CDT 08/18/2022 10:15 AM CDT Sunita Bal MD LAB - CHEMISTRY ORD ERABLES Performing Organization Address [facility] Co de Phone Number [facility] [address] [place], [place] [id number] * (ABNORMAL) HEMOGLOBIN (08/18/2022 6:30 AM CDT) Hemoglobin 11.9(L) 12.0 - 15.6 gm/dL 08/18/2022 7:10 AM CDT [facility] Blood BLOOD SPECIMEN / Unknown Venipuncture / Unknown 08/18/2022 6:30 AM CDT 08/18/2022 6:54 AM CDT Sunita Bal MD LAB - HEMATOLOGY OR DERABLES Performing Organization Address [facility] Co de Phone Number [facility] [address] [place] [address] * Neuraxial Block (08/17/2022 11:34 AM CDT) [...] - 1 % 07/24/2022 9:05 AM CDT [facility] Neutrophil Absolute 2.82 2.01 - 7.14 x10E9/L 07/24/2022 9:05 AM CDT [facility] Lymphocytes Absolute 1.22 1.07 - 3.94 x10E9/L 07/24/2022 9:05 AM CDT [facility] Monocytes Absolute 0.52 0.26 - 1.07 x10E9/L 07/24/2022 9:05 AM CDT [facility] Eosinophils Absolute 0.19 0 - 0.47 x10E9/L 07/24/2022 9:05 AM CDT [facility] Basophils Absolute 0.05 0 - 0.08 x10E9/L 07/24/2022 9:05 AM CDT [facility] Immature Granulocytes Absolute 0.01 0.00 - 0.06 x10E9/L 07/24/2022 9:05 AM CDT [facility] nRBC Auto 0 /100 WBC 07/24/2022 9:05 AM CDT [facility] Blood BLOOD SPECIMEN / Unknown Venipuncture / Unknown 07/24/2022 8:49 AM CDT 07/24/2022 8:58 AM CDT Libra Diez PHYSICIAN CODER-PAPER CUP HANDLE MACHINE OPERATOR LAB - HEMATO LOGY ORDERABLES [facility] [address] [place] [address] * (ABNORMAL) COMPREHENSIVE METABOLIC PANEL (07/24/2022 8:49 AM CDT) Glucose 155(H) 70 - 105 mg/dL 07/24/2022 9:16 AM CDT [facility] Sodium 139 136 - 145 mmol/L 07/24/2022 9:16 AM CDT [facility] Potassium 4.5 3.5 - 5.1 mmol/L 07/24/2022 9:16 AM CDT [facility] Chloride 107 98 - 107 mmol/L 07/24/2022 9:16 AM CDT [facility] CO2 26 23 - 31 mmol/L 07/24/2022 9:16 AM CDT [facility] Calcium 9.7 8.4 - 10.4 mg/dL 07/24/2022 9:16 AM CDT [facility] Anion Gap 6(L) 8 - 18 mmol/L 07/24/2022 9:16 AM CDT [facility] BUN 18 9.8 - 20.1 mg/dL 07/24/2022 9:16 AM CDT [facility] Creatinine 0.71 0.57 - 1.11 mg/dL 07/24/2022 9:16 AM CDT [facility] Alkaline Phosphatase 44 40 - 150 U/L 07/24/2022 9:16 AM CDT [facility] ALT 15 0 - 61 U/L 07/24/2022 9:16 AM CDT [facility] AST 16 5 - 34 U/L 07/24/2022 9:16 AM CDT [facility] Protein Total 7.1 6.4 - 8.3 gm/dL 07/24/2022 9:16 AM CDT [facility] Albumin 4.1 3.2 - 4.6 gm/dL 07/24/2022 9:16 AM CDT [facility] Bilirubin Total 0.5 0.2 - 1.2 mg/dL 07/24/2022 9:16 AM CDT [facility] eGFR by CKD-EPI 87(L) >=90 mL/min/1.7 3 m2 07/24/2022 9:16 AM CDT [facility] Blood BLOOD SPECIMEN / Unknown Venipuncture / Unknown 07/24/2022 8:49 AM CDT 07/24/2022 8:58 AM CDT Libra Diez PHYSICIAN CODER-PAPER CUP HANDLE MACHINE OPERATOR LAB - CHEMIS TRY ORDERABLES Performing Organization Address City/[facility]/ZIP Co de Phone Number [facility] [address] [place] [address] * EKG 12-LEAD (07/24/2022 8:38 AM CDT) Ventricular Rate 50 BPM [facility] Atrial Rate 50 BPM [facility] P-R Interval 208 ms [facility] QRS Duration ms 142 ms [facility] Q-T Interval ms 494 ms [facility] QTC Calculation (Bezet) 450 ms [facility] Calculated P [place] 22 degrees [facility] Calculated R [place] 25 degrees [facility] Calculated T [place] -13 degrees [facility] Interpretation EKG Sinus bradycardia with occasional Premature ventricular complexes Right bundle branch block Inferior infarct , age undetermined Anterolateral infarct , age undetermined Abnormal ECG No previous ECGs available Confirmed by DONAL DYSON MD ([id number]) on 07/24/2022 12:51:51 PM [facility] 07/24/2022 8:38 AM CDT 07/24/2022 12:51 PM CDT Eve Neri DO ECG ORDERABLES Performing Organization Address City/[facility] Co de Phone Number [facility] * XR FINGERS RIGHT 2VW OR MORE (03/21/2019 2:14 PM ASSESSOR) Anatomical Region Laterality Modality Upper Extremity, Wrist / Hand Co mputed Radiography Narrative 03/21/2019 2:15 PM ASSESSOR Kerline Calhoun RT(R) 03/21/2019 3:04 PM See progress notes for results Amber Fairchild MD DIAGNOSTIC IMAGING O RDERABLES * XR KNEE BILAT 3VW (02/21/2019 2:14 PM ASSESSOR) Anatomical Region Laterality Modality Lower Extremity Computed Radiogr aphy Narrative 02/21/2019 2:15 PM ASSESSOR Kerline Calhoun, RT(R) 02/22/2019 4:35 PM See progress notes for results Rosibel Stanton PA-C DIAGNOSTIC IM AGING ORDERABLES * PATHOLOGY TISSUE FOR DERMATOLOGY (02/07/2015 12:00 AM ASSESSOR) Only the most recent of4 resultswithin the time period is included. Result CASE: [id number] PATIENT: ANA M CHILDRESS PATHOLOGIC DIAGNOSIS: Forehead: SQUAMOUS CELL CARCINOMA, WELL DIFFERENTIATED CLINICAL DATA: Rule out BCC vs ISK. GROSS DESCRIPTION: Received is one formalin filled container labeled with the patients name and designated forehead. The specimen consists of a shave biopsy (2 pieces) measuring [id number] [id number]. Jar 0. MICROSCOPIC DESCRIPTION: Arising in the epidermis and extending into the dermis there are irregularly shaped aggregates of keratinocytes showing evidence of premature cornification. Electronically signed out by Yaneth Wray M.D. 02/11/2015 1:13:30PM [facility] Comment: Performed at: Dermatopathology Laboratory [facility] - Department of Dermatology [address] [place] [address] [place] [address] Phone number: [phone] FAX: [phone] Skin (tissue) specimen (specimen) 02/07/2015 02/08/2015 Narrative [facility] - 02/11/2015 1:13 PM ASSESSOR Alexis Mcleod MD Preferred Lab:->Derm-Path Specimen A: Type->Shave Site->forehead History->pink pearly papule with crust Impression->rule out BCC vs ISK Check Margins:->N/A Prior Biopsy->N/A Alexis Mcleod MD LAB - PATHOLOGY/CYTO LOGY ORDERABLES [facility] [address] [place] [address]. [facility] [place] [address], [facility] [phone] * PATHOLOGY/GENETICS HISTORICAL-ONBASE (11/14/2008) 11/14/2008 Narrative [facility] - 02/18/2012 9:15 AM ASSESSOR Historical Provider LAB - CHEMISTRY O RDERABLES [facility] [address] [place] [address], [facility] Care Teams Backup Administrative Coordinator Relationship Specialty Start Date End Date Ernestina Luevano MD [address] [place] [address] PCP - General Family Medicine 06/03/22 [place] [address] [place] [address] Orthopedic Surgery 08/27/17 Cirilo Buenrostro MD [address] [place] [address] Metal Caster Cardiology 08/12/22
--- OUTSIDE RECORDS SUMMARY | 2024-05-23 05:16 | XMS_ITS | Referral Summary ---
Author Organization [facility] [employer] Address [address] [place] [address] Care Team Providers Care Pump Erector Helper Name Role Phone Franco Randolph MD Unavailable [phone] Ernestina Luevano MD Primary Care Provider + Cirilo Buenrostro MD Unavailable [phone] Source Comments [facility],non-owned Affiliates and Associated Physician Practices is amultiple site organization consisting of ambulatory clinics and hospital sitesin [place], [place], [place] and [place]. This disclosure is being madepursuant to the Care Everywhere program and may not contain all information available regarding this patient. Last updated 17.[facility] [employer] Allergies No known active allergies Medications * [...] once daily 07/03/2020 Active Continuous Blood Gluc Transitional Care Manager (FreeStyle Haritha [place]) JACK Inject 1 device subcutaneously continuous 05/27/2022 [...] Overview: Added automatically from request for surgery [id number] Primary osteoarthritis of both knees 08/27/2017 DM type 2 with diabetic peripheral neuropathy Overview (08/27/2017): Last Assessment & Plan: Foot care discussed. Coronary artery disease invo lving [place] coronary artery of [place] heart without angina pectoris 01/28/2017 Hx of [...] on file Medical Devices Implanted Type Area Field Service Supervisor Device Identifier Shelf Expiration Date Model / Serial / Lot Cmnt Bone Djo Srg Cblt 40gm Hvisc Strl Implanted:Qty: 1 on 08/17/2022 by Franco Randolph MD at [facility] Left: Knee [employer] 11/27/2023 600-15-000 / / [id number] Cmpnt Ptlr Std 28mm 3 Pg Kn Ser A Implanted:Qty: 1 on 08/17/2022 by Franco Randolph MD at [facility] Left: Knee Blanca [employer]omet 05/07/2027 [id number] / / [id number] Tray Tib 75mm Kn Cocr I Beam Implanted:Qty: 1 on 08/17/2022 by Franco Randolph MD at [facility] Left: Knee Blanca [employer] 08/24/2031 [id number] / / [id number] Cmpnt Fem Kn Lt Cr Cmnt Prm Vngrd Intlk 67.5 Mm Implanted:Qty: 1 on 08/17/2022 by Franco Randolph MD at [facility] Left: Knee Blanca [employer] 06/02/2032 [id number] / / [id number] Brng [id number] Vngrd Arcm Kn Ant Stab Implanted:Qty: 1 on 08/17/2022 by Franco Randolph MD at [facility] Left: Knee Blanca [employer]omet 05/22/2027 [id number] / / [id number] Procedures Procedure Name Priority Date/Time Associated Diagnosis Comments BASIC METABOLIC PANEL (CALCIUM TOTAL) AM Draw 08/18/2022 10:10 AM CDT 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, unspecified laterality (HCC) from Last 3 Months or Most Recently Relevant to Health Maintenance Results * (ABNORMAL) BASIC METABOLIC PANEL (CALCIUM TOTAL) (08/18/2022 10:10 AM CDT) [facility] Glucose 288(H) 70 - 105 mg/dL 08/18/2022 10:45 AM CDT [facility] Sodium 138 136 - 145 mmol/L 08/18/2022 10:45 AM CDT [facility] Potassium 4.6 3.5 - 5.1 mmol/L 08/18/2022 10:45 AM CDT [facility] Chloride 106 98 - 107 mmol/L 08/18/2022 10:45 AM CDT [facility] CO2 23 23 - 31 mmol/L 08/18/2022 10:45 AM CDT [facility] Calcium 9.6 8.4 - 10.4 mg/dL 08/18/2022 10:45 AM CDT [facility] Anion Gap 9 8 - 18 mmol/L 08/18/2022 10:45 AM CDT [facility] BUN 36(H) 9.8 - 20.1 mg/dL 08/18/2022 10:45 AM CDT [facility] Creatinine 1.00 0.57 - 1.11 mg/dL 08/18/2022 10:45 AM CDT [facility] eGFR by CKD-EPI 58(L) >=90 mL/min/1.7 3 m2 08/18/2022 10:45 AM CDT [facility] Blood BLOOD SPECIMEN / Unknown Venipuncture / Unknown 08/18/2022 10:10 AM CDT 08/18/2022 10:15 AM CDT Sunita Bal MD LAB - CHEMISTRY ORD ERABLES [facility] [address] [place] [address] from Last 3 Months or Most Recently Relevant to Health Maintenance Advance Directives * Full Code (Latest Code Status on File) Date Activated Date Inactivated Comments 08/17/2022 1:40 PM 08/18/2022 4:20 PM Care Teams Pump Erector Helper Relationship Specialty Start Date End Date Ernestina Luevano MD [address] [place] [address] PCP - General Family Medicine 06/03/22 [place] [address] [place] [address] Orthopedic Surgery 08/27/17 Cirilo Buenrostro MD [address] [place], [place] [id number] Thoroughbred Horse Farm Manager Cardiology 08/12/22
--- OUTSIDE RECORDS SUMMARY | 2024-05-23 05:16 | XMS_ITS | Continuity of Care Document ---
Author Organization [facility] Address [address] [place] [address] [place] [address] Phone Care Team Providers Care File Conversion Operator Name Role Phone Dianelys Ding Unavailable Unavailable Advance Directives Directive Yes / No Effective Date File Name No Information Encounters Encounter Description Practice Location Reason(s) For Visit Diagnoses Date Provider Providers Copied on Encounter [facility], [address] [place] [address] [address], [place], [place], [id number], [place] tel:[phone] [facility] No Information [address] , [address], [place], [address], [place]. tel:[phone] Family History Family Member Type Diagnosis Age At Onset No Information Payers Payer name Insurance type Covered libertarian ID Authoriza tion(s) No Information Social History [...]
--- OUTSIDE RECORDS SUMMARY | 2024-05-23 05:16 | XMS_ITS | Encounter Summary ---
Author Organization [facility] Address [address] [place] [address] Care Team Providers Care Hand Shoes Sewer Name Role Phone Unavailable Primary Care Provider Unavailabl e Encounter Details Date Type Department Care Team (Late st Contact Info) Description 04/15/2005 Outpatient Historical [facility] Supp Svcs Blood Flow [address] [place] [id number] Todd Chapin MD NO ADDRESS ON FILE Social History Tobacco Use Types Packs/Day Years Used Date Smoking Tobacco: Never Assessed Comments Unknown Sex and Gender Information Value Date Recorded Sex Assigned at Not on file Legal Sex Female 5:02 AM ETIQUETTE TEACHER Gender Identity Not on file Sexual Orientation Not on file documented as of this encounter Plan of Treatment Not on file documented as of this encounter Visit Diagnoses Not on filedocumented in this encounter
--- OUTSIDE RECORDS SUMMARY | 2024-05-23 05:16 | XMS_ITS | Clinical Summary ---
Author Organization [facility] [employer] Address [address] [place] [address] Care Team Providers Care Senior Architectural Designer Name Role Phone Franco Randolph MD Unavailable [phone] Ernestina Luevano MD Primary Care Provider + Cirilo Buenrostro MD Unavailable [phone] Source Comments [facility] [employer],non-owned Affiliates and Associated Physician Practices is amultiple site organization consisting of ambulatory clinics and hospital sitesin [place], [place], [place] and [place]. This disclosure is being madepursuant to the Care Everywhere program and may not contain all information available regarding this patient. Last updated 17.[facility] [employer] Allergies No known active allergies Medications * [...] once daily 07/03/2020 Active Continuous Blood Gluc [place] (FreeStyle Haritha [place]) JCAK Inject 1 device subcutaneously continuous 05/27/2022 Active [...] Overview: Added automatically from request for surgery [id number] Primary osteoarthritis of both knees 08/27/2017 DM type 2 with diabetic peripheral neuropathy Overview (08/27/2017): Last Assessment & Plan: Foot care discussed. Coronary artery disease invo lving [place] coronary artery of [place] heart without angina pectoris 01/28/2017 Hx of [...] this topic Medical Devices Implanted Type Area Dispatcher Maintenance Device Identifier Shelf Expiration Date Model / Serial / Lot Cmnt Bone Djo Srg Cblt 40gm Hvisc Strl Implanted:Qty: 1 on 08/17/2022 by Franco Randolph MD at [facility] Left: Knee [employer]oped[employer] 11/27/2023 600-15-000 / / [id number] Cmpnt Ptlr Std 28mm 3 Pg Kn Ser A Implanted:Qty: 1 on 08/17/2022 by Franco Randolph MD at [facility] Left: Knee Blanca [employer] 05/07/2027 [id number] / / [id number] Tray Tib 75mm Kn Cocr I Beam Implanted:Qty: 1 on 08/17/2022 by Franco Randolph MD at [facility] Left: Knee Blanca [employer] 08/24/2031 [id number] / / [id number] Cmpnt Fem Kn Lt Cr Cmnt Prm Vngrd Intlk 67.5 Mm Implanted:Qty: 1 on 08/17/2022 by Franco Randolph MD at [facility] Left: Knee Blanca [employer] 06/02/2032 [id number] / / [id number] Brng [id number] Vngrd Arcm Kn Ant Stab Implanted:Qty: 1 on 08/17/2022 by Franco Randolph MD at [facility] Left: Knee Blanca [employer] 05/22/2027 [id number] / / [id number] Procedures Procedure Name Priority Date/Time Associated Diagnosis [...] - 18 mmol/L 08/18/2022 10:45 AM CDT [facility] BUN 36(H) 9.8 - 20.1 mg/dL 08/18/2022 10:45 AM CDT [facility] Creatinine 1.00 0.57 - 1.11 mg/dL 08/18/2022 10:45 AM CDT [facility] eGFR by CKD-EPI 58(L) >=90 mL/min/1.7 3 m2 08/18/2022 10:45 AM CDT [facility] Blood BLOOD SPECIMEN / Unknown Venipuncture / Unknown 08/18/2022 10:10 AM CDT 08/18/2022 10:15 AM CDT Sunita Bal MD LAB - CHEMISTRY ORD ERABLES [facility] [address] [place] [address] from Last 3 Months or Most Recently Relevant to Health Maintenance Advance Directives * Full Code (Latest Code Status on File) Date Activated Date Inactivated Comments 08/17/2022 1:40 PM 08/18/2022 4:20 PM Care Teams Senior Architectural Designer Relationship Specialty Start Date End Date Ernestina Luevano MD [address] [address] [address] [place], [place] [id number] PCP - General Family Medicine 06/03/22 [place] [address] [facility] [address] [place] [address] Orthopedic Surgery 08/27/17 Cirilo Buenrostro MD [address] [facility] [address] [place] [address] Rack Production Worker Cardiology 08/12/22
--- OUTSIDE RECORDS SUMMARY | 2024-05-23 05:16 | XMS_ITS | Data Portability ---
Author Organization [place] [facility], Main Office Address [address] [place] [address] Care Team Providers Care Fisher Purse Seine Name Role Phone SAM HIGGINS Primary Care [...] procedure, administer ed by provider 2022 023 [email or web address] In-Office Order, Internal Use Only DO Not Attach Compendium DO Not Attach Compendium, Do Not Delete/merge, [id number] 15:33:20 injection/ aspiration joint/burs a (PROC) - in office procedure, administer ed by provider 2022 023 [email or web address] In-Office Order, Internal Use Only DO Not Attach Compendium DO Not Attach Compendium, Do Not Delete/merge, 65950 3 09:09:50 Surgeries None recorded. Imaging XR, hand, 3 or more view 2022 023 [email or web address] [facility] [place], [address], [place], [address], 3 07:31:14 XR, elbow 2022 023 [email or web address] [facility] [place], [address], [place], [address], 3 15:40:12 XR, hand, 3 or more view 2022 023 [email or web address] [facility] [place], [address], [place], [address], 3 09:39:43 Medication Orders Mobic 15 mg tablet 2022 023 [email or web address] [facility] [address] [place], [address], 3 20:07:14 Kenalog 10 mg/mL suspension for injection [address] [facility] [address] [place], [address], 3 15:33:24 ropivacain e (PF) 5 mg/mL (0.5 %) injection solution [address] [facility] [address] [place], [address], 3 15:33:24 Kenalog 10 mg/mL suspension for injection [address] [facility] [address] [facility] [place], [address], 09:09:52 ropivacain e (PF) 5 mg/mL (0.5 %) injection solution 2022 023 [email or web address] [facility] [address], [address], [place], [address], 09:23:07 Patient TargetsNo targets recorded. Patient InstructionsNo instructions recorded. Reason for Referral None Reported. Results Created Date Observation Date Name Description Value Unit Range Abnormal Flag Note LastModifiedBy Organization Detail LastModifiedTime 08/05/19 23 XR, hand, 3 or more view No observ ation record ed. [email or web address] [facility] [place] [address] [facility] [address], [place], [address], 08/04/2022 09:33:15 09/24/19 23 XR, elbow No observ ation record ed. [email or web address] [facility] [place] [address] [facility] [address], [place], [address], 09/23/2022 15:35:19 03/10/20 23 XR, hand, 3 or more view No observ ation record ed. [email or web address] [facility] [place] [address] [facility] [address], [place], [address], 03/10/2023 15:50:06 Result Notes None recorded. Problems Name Problem SNOMED Code Status Onset Date Resolution Date Notes Provider Name and Address Organization Details Recorded Time Acquired trigger finger 3872005 Active Not Available [facility] 3 13:49:59 Localized, primary osteoarthr itis of the hand 342382152 Active Not Available [facility] 3 13:49:59 Closed Colles' fracture 772949886 Active Not Available [facility] 3 13:49:59 Sprain of elbow and forearm 290990788 Active Not Available [facility] 3 13:49:59 Osteoarthr itis 735553368 Active Not Available [facility] 3 13:49:59 Fracture of forearm 61912557 Active Not Available [facility] 3 13:49:59 Pain in elbow 23526004 Active Not Available [facility] 3 13:49:59 Pain of left hand 7539031264626 03 Active 2022 TENNILLE Andrews, [facility] 3 08:42:23 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 0128835448315 9102 Active 2022 CHERELLE Trinh [address], [facility] [address], [place], [address] , [facility] 3 09:36:58 Pain of left elbow joint 3414852925534 9104 Active 2022 TENNILLE Snow, [facility] 3 14:35:08 Medial epicondyli tis of left elbow joint 6680469180118 07 Active 2022 Michael Martinez MD [address], [place], [address] , [facility] 3 15:35:32 Pain in right hand 6650131046591 09 Active 2022 TENNILLE Andrews, [facility] 3 15:49:52 Problem Notes None recorded. Procedures Surgical History None recorded. Imaging Results Imaging Date Name Status LastModified by Organ [facility] Details LastModified Time 08/04/2022 XR, hand, 3 or more view completed [email or web address] [facility] [place] [address], [place], [address], 08/04/2022 09:33:15 09/23/2022 XR, elbow completed [email or web address] [facility] [place] [address], [place], [address], 09/23/2022 15:35:19 03/10/2023 XR, hand, 3 or more view completed [email or web address] [facility] [place] [address] [facility] [address], [place], [address], 03/10/2023 15:50:06 Procedure Notes None recorded. Medical [...] suspension for injection IN OFFICE 2022 active [facility]: 0003- 0494- 20 Not Available Not Available [...] %) injection solution IN OFFICE 2022 active [facility] 28819 -064- 01 Not Available Not Available Not [...] Available No t Available [employer] Har[facility] [address] [place] USE DIRECTED active Not Available Not Available No t Available Vitals Date Recorded Body mass index (BMI) Body height Pain severity - 0-10 verbal numeric rating [Score] - Reported Body weight Provider Name and Address Organization Details Last Updated DateTime 06/03/2022 21.2 kg/m2 193.04 cm 10 87878.07 g Not Available [facility] 06/03/2022 13:49:51 Date Recorded Body height Body mass index (BMI) Body weight Pain severity - 0-10 verbal numeric rating [Score] - Reported Provider Name and Address Organization Details Last Updated DateTime 08/04/2022 193.04 cm 20.9 kg/m2 36477.89 g 10 Kira Null [facility] [employer] 08/04/2022 08:42:01 Date Recorded Body height Provider Name an d Address Organization Details Last Updated DateTime 09/23/2022 193.04 cm Adalgisa Dominguez [facility] [employer] [facility] [employer] 09/23/2022 14:34:21 Date Recorded Body height Body mass index (BMI) Body weight Pain severity - 0-10 verbal numeric rating [Score] - Reported Provider Name and Address Organization Details Last Updated DateTime 03/10/2023 193.04 cm 20 kg/m2 38897.15 g 0 Kira Null [facility] [employer] [facility] [employer] 03/10/2023 15:49:09 Social History Question Answer Notes LastModified by Organizat ion Details LastModified Time Tobacco Smoking Status Unknown If Ever Smoked Not Available [facility] 06/03/2022 13:49:39 What Is Your Level Of Alcohol Consumption? None [id number] Information not available 06/03/2022 What Was The Date Of Your Most Recent Tobacco Screening? 01/27/2022 [id number] Information not available 06/03/2022 Sex: Unknown Functional Status None recorded. Mental Status None recorded. Family History Nothing Reported. Medical History Condition Response DIABETES, TYPE Y ARTHRITIS Y Gynecological HistoryNo gynecological history recorded. Obstetrics History GPAL:G 0 P 0 0 0 0 Past Encounters Encounter ID Performer Location Encounter Start Date Encounter Closed Date Diagnosis/Indication Diagnosis SNOMED-CT Code Diagnosis ICD10 Code Diagnosis Note [id number] [facility] [place] [address] [place] [address] 01/27/2022 00:00:00 01/27/2022 12:38:48 [id number] CHERELLE Trinh [facility] [place] [address] [place] [address] 08/04/2022 08:38:44 08/04/2022 09:39:43 Pain of left hand 7191213545 21887 M79.642 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 0324564977 2491806 M19.042 [id number] Michael Martinez MD [facility] [place] [address] [place] [address] 09/23/2022 14:29:46 09/23/2022 15:40:12 Pain of left elbow joint 3065589163 8657349 M25.522 Medial epi condylitis of left elbow joint 3470398544 88991 M77.02 discussed the treatment options today. We will have her work on a stretching program watch her heavy repetitive lifting. We did a 1 time injection with 2 cc xylocaine 2 cc Kenalog over the medial epicondyle . We will see her back if no improvemen t with the 1 time injection and the stretching program [id number] Ricky Comer MD [facility] [place] 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 6090747 M65.30 Medial epi condylitis of left elbow joint 8286694277 48189 M77.02 Health Concerns Section Related Observation LastModified by Organization Detai ls LastModified Time None Recorded Concern Status LastModified by Organization Details LastModified Time None Recorded Advance Directives Directive None Recorded Payers Encounter Date Sequence Insurance Name Policy Number Policy Ivey Covered Member ID Ivey Member ID Guarantor Name 08/04/2022 1 [employer] - OPEN ACCESS Ana M Childress [id number] RAFITA Childress 09/23/2022 1 [employer] - OPEN ACCESS Ana M Weber Childress [id number] OI Ana M Weber Childress 03/10/2023 1 [employer] - [employer] - OPEN ACCESS Ana M Weber Childress [id number] OI Ana M Weber McNeil Notes Date [...] CHERELLE Trinh [address], [place], [address], [employer] 08/04/2022 09:38:14 09/23/2022 text/html patient comes in [...] Martinez MD [address], [address], [place], [address], [employer] 09/23/2022 15:36:04 OBGyn Episode No OBEpisode recorded.
--- OUTSIDE RECORDS SUMMARY | 2024-05-23 05:16 | XMS_ITS | Encounter Summary ---
Author Organization [facility] Address [address] [place] [address] Care Team Providers Care Retail Center Receptionist Name Role Phone Unavailable Primary Care Provider Unavailabl e Encounter Details Date Type Department Care Team (Latest Contact Info) Description 04/15/2005 Inpatient Historical HIS CARD CARTON FILLER Max Jhaveri MD [address] [facility] [address] [place] [address] Cirilo Buenrostro MD [address] [facility] [address] [place] [id number] CORON ATHEROSCL UNA[place]LEET CORON VESSEL (Primary Dx) Social History Tobacco Use Types Packs/Day Years Used Date Smoking Tobacco: Never Assessed Comments Unknown Sex and Gender Information Value Date Recorded Sex Assigned at Not on file Legal Sex Female 5:02 AM CUFF SETTER LOCKSTITCH Gender Identity Not on file Sexual Orientation Not on file documented as of this encounter Plan of Treatment Not on file documented as of this encounter Procedures Procedure Name Priority Date/Time Associated Diagnosis Comments POC GLUCOSE Routine 04/19/2005 5:35 AM CUFF SETTER LOCKSTITCH POC GLUCOSE Routine 04/18/2005 9:01 PM CUFF SETTER LOCKSTITCH POC GLUCOSE Routine 04/18/2005 4:37 PM CUFF SETTER LOCKSTITCH POC GLUCOSE Routine 04/18/2005 11:10 AM CUFF SETTER LOCKSTITCH POC GLUCOSE Routine 04/18/2005 5:32 AM CUFF SETTER LOCKSTITCH CBC WITH DIFFERENTIAL Routine 04/18/2005 5:00 AM CUFF SETTER LOCKSTITCH CBC WITH DIFFERENTIAL Routine 04/18/2005 5:00 AM CUFF SETTER LOCKSTITCH BASIC METABOLIC PANEL Routine 04/18/2005 5:00 AM CUFF SETTER LOCKSTITCH POC GLUCOSE Routine 04/17/2005 9:10 PM CUFF SETTER LOCKSTITCH CVR ONLY, CKMB/CK Routine 04/17/2005 7:3 9 PM CUFF SETTER LOCKSTITCH POC GLUCOSE Routine 04/17/2005 4:50 PM CUFF SETTER LOCKSTITCH POC GLUCOSE Routine 04/17/2005 11:06 AM CUFF SETTER LOCKSTITCH POC GLUCOSE Routine 04/17/2005 6:13 AM CUFF SETTER LOCKSTITCH POC GLUCOSE Routine 04/17/2005 4:45 AM CUFF SETTER LOCKSTITCH PT AND APTT Routine 04/17/2005 4:23 AM CUFF SETTER LOCKSTITCH CBC WITH DIFFERENTIAL Routine 04/17/2005 4:23 AM CUFF SETTER LOCKSTITCH CBC WITH DIFFERENTIAL Routine 04/17/2005 4:23 AM CUFF SETTER LOCKSTITCH MAGNESIUM LEVEL Routine 04/17/2005 4:23 AM CUFF SETTER LOCKSTITCH COMPREHENSIVE METABOLIC PANEL Routine 04/17/2005 4:23 AM CUFF SETTER LOCKSTITCH POC GLUCOSE Routine 04/17/2005 1:59 AM CUFF SETTER LOCKSTITCH CVR ONLY, CKMB/CK Routine 04/17/2005 1:0 0 AM CUFF SETTER LOCKSTITCH HEMOGLOBIN AND HEMATOCRIT Routine 04/17/2005 1:00 AM CUFF SETTER LOCKSTITCH POTASSIUM LEVEL Routine 04/17/2005 1:00 AM CUFF SETTER LOCKSTITCH POC GLUCOSE Routine 04/17/2005 12:53 AM CUFF SETTER LOCKSTITCH POC GLUCOSE Routine 04/16/2005 11:21 PM CUFF SETTER LOCKSTITCH POC GLUCOSE Routine 04/16/2005 10:17 PM CUFF SETTER LOCKSTITCH POC GLUCOSE Routine 04/16/2005 9:29 PM CUFF SETTER LOCKSTITCH POC, BLOOD GASES Routine 04/16/2005 8:45 PM CUFF SETTER LOCKSTITCH POC GLUCOSE Routine 04/16/2005 8:26 PM CUFF SETTER LOCKSTITCH POTASSIUM LEVEL Routine 04/16/2005 8:00 PM CUFF SETTER LOCKSTITCH MAGNESIUM LEVEL Routine 04/16/2005 8:00 PM CUFF SETTER LOCKSTITCH POC GLUCOSE Routine 04/16/2005 7:51 PM CUFF SETTER LOCKSTITCH POC GLUCOSE Routine 04/16/2005 6:31 PM CUFF SETTER LOCKSTITCH POC GLUCOSE Routine 04/16/2005 5:36 PM CUFF SETTER LOCKSTITCH POC GLUCOSE Routine 04/16/2005 4:19 PM CUFF SETTER LOCKSTITCH POC, BLOOD GASES Routine 04/16/2005 4:05 PM CUFF SETTER LOCKSTITCH CVR ONLY, CKMB/CK Routine 04/16/2005 3:5 7 PM CUFF SETTER LOCKSTITCH PT AND APTT Routine 04/16/2005 3:57 PM CUFF SETTER LOCKSTITCH CBC WITH DIFFERENTIAL Routine 04/16/2005 3:57 PM CUFF SETTER LOCKSTITCH CBC WITH DIFFERENTIAL Routine 04/16/2005 3:57 PM CUFF SETTER LOCKSTITCH MAGNESIUM LEVEL Routine 04/16/2005 3:57 PM CUFF SETTER LOCKSTITCH BASIC METABOLIC PANEL Routine 04/16/2005 3:57 PM CUFF SETTER LOCKSTITCH LIPID PANEL Routine 04/16/2005 6:10 AM CUFF SETTER LOCKSTITCH URINALYSIS W/REFLEX MICROSCOPIC Routine 04/15/2005 4:23 PM CUFF SETTER LOCKSTITCH BASIC METABOLIC PANEL PLUS Routine 04/15/2005 12:40 PM CUFF SETTER LOCKSTITCH PT AND APTT Routine 04/15/2005 12:40 PM CUFF SETTER LOCKSTITCH CBC WITH DIFFERENTIAL Routine 04/15/2005 12:40 PM CUFF SETTER LOCKSTITCH CBC WITH DIFFERENTIAL Routine 04/15/2005 12:40 PM CUFF SETTER LOCKSTITCH BASIC METABOLIC PANEL Routine 04/15/2005 12:40 PM CUFF SETTER LOCKSTITCH documented in this encounter Results * (ABNORMAL) POC GLUCOSE (04/19/2005 5:35 AM CUFF SETTER LOCKSTITCH) COMMENT, GLU POC Notified RN INTERFACE SYSTEM GLUCOSE POC 142(H) 65 - 109 mg/dL INTERFACE SYSTEM 04/19/2005 5:35 AM CUFF SETTER LOCKSTITCH Cirilo Buenrostro MD POINT OF CARE TESTING Fin al Result Performing Organization Address [facility] de Phone Number INTERFACE SYSTEM Refer to clinic/hospital department * (ABNORMAL) POC GLUCOSE (04/18/2005 9:01 PM CUFF SETTER LOCKSTITCH) COMMENT, GLU POC Notified RN INTERFACE SYSTEM GLUCOSE POC 221(H) 65 - 109 mg/dL INTERFACE SYSTEM 04/18/2005 9:01 PM CUFF SETTER LOCKSTITCH Cirilo Buenrostro MD POINT OF CARE TESTING Fin al Result Performing Organization Address [facility] de Phone Number INTERFACE SYSTEM Refer to clinic/hospital department * (ABNORMAL) POC GLUCOSE (04/18/2005 4:37 PM CUFF SETTER LOCKSTITCH) GLUCOSE POC 170(H) 65 - 109 mg/dL INTERFACE SYSTEM 04/18/2005 4:37 PM CUFF SETTER LOCKSTITCH Cirilo Buenrostro MD POINT OF CARE TESTING Fin al Result Performing Organization Address [facility] de Phone Number INTERFACE SYSTEM Refer to clinic/hospital department * (ABNORMAL) POC GLUCOSE (04/18/2005 11:10 AM CUFF SETTER LOCKSTITCH) COMMENT, GLU POC Notified RN INTERFACE SYSTEM GLUCOSE POC 220(H) 65 - 109 mg/dL INTERFACE SYSTEM 04/18/2005 11:1 0 AM CUFF SETTER LOCKSTITCH Cirilo Buenrostro MD POINT OF CARE TESTING Fin al Result Performing Organization Address [facility] Phone Number INTERFACE SYSTEM Refer to clinic/hospital department * (ABNORMAL) POC GLUCOSE (04/18/2005 5:32 AM CUFF SETTER LOCKSTITCH) GLUCOSE POC 193(H) 65 - 109 mg/dL INTERFACE SYSTEM 04/18/2005 5:32 AM CUFF SETTER LOCKSTITCH Cirilo Buenrostro MD POINT OF CARE TESTING Fin al Result Performing Organization Address [facility] Phone Number INTERFACE SYSTEM Refer to clinic/hospital department * (ABNORMAL) CBC WITH DIFFERENTIAL (04/18/2005 5:00 AM CUFF SETTER LOCKSTITCH) NEUTROPHIL ABSOLUTE 5.67 1.90 - 7.00 K/uL [...] Normal INTER FACE SYSTEM 04/18/2005 5:00 AM CUFF SETTER LOCKSTITCH Cirilo Buenrostro MD HEMATOLOGY ORDERABLES Fin al Result Performing Organization Address [facility] Phone Number INTERFACE SYSTEM Refer to clinic/hospital department * (ABNORMAL) CBC WITH DIFFERENTIAL (04/18/2005 5:00 AM CUFF SETTER LOCKSTITCH) WBC 7.0 4.0 - 9.8 K/uL INTERFACE [...] 12.4 fL INTERFACE SYSTEM 04/18/2005 5:00 AM CUFF SETTER LOCKSTITCH Cirilo Buenrostro MD HEMATOLOGY ORDERABLES Fin al Result Performing Organization Address [facility] Phone Number INTERFACE SYSTEM Refer to clinic/hospital department * (ABNORMAL) BASIC METABOLIC PANEL (04/18/2005 5:00 AM CUFF SETTER LOCKSTITCH) GLUCOSE 186(H) 65 - 109 mg/dL INTERFACE [...] 30 mmol/L INTERFACE SYSTEM 04/18/2005 5:00 AM CUFF SETTER LOCKSTITCH Cirilo Buenrostro MD CHEMISTRY ORDERABLES Sommer l Result Performing Organization Address [facility] Co de Phone Number INTERFACE SYSTEM Refer to clinic/hospital department * (ABNORMAL) POC GLUCOSE (04/17/2005 9:10 PM CUFF SETTER LOCKSTITCH) GLUCOSE POC 261(H) 65 - 109 mg/dL INTERFACE SYSTEM 04/17/2005 9:10 PM CUFF SETTER LOCKSTITCH Cirilo Buenrostro MD POINT OF CARE TESTING Fin al Result Performing Organization Address [facility] de Phone Number INTERFACE SYSTEM Refer to clinic/hospital department * (ABNORMAL) CVR ONLY, CKMB/CK (04/17/2005 7:39 PM CUFF SETTER LOCKSTITCH) CKMB 7.5(AA) <=3.8 ng/mL INTERFACE SYSTEM Comment:Persistent abnormal result CKMB INTERP See Below INTERFAC E SYSTEM Comment:Elevated CKMB,consis tent with Myocardial Injury CK 339(H) 10 - 145 U/L INTERFACE SYSTEM CARDIAC RELATIVE INDEX 2.2 <=4.0 INTERFACE SYSTEM 04/17/2005 7:39 PM CUFF SETTER LOCKSTITCH Max Jhaveri MD CHEMISTRY ORDERABLES Final Re sult Performing Organization Address [facility] Phone Number INTERFACE SYSTEM Refer to clinic/hospital department * (ABNORMAL) POC GLUCOSE (04/17/2005 4:50 PM CUFF SETTER LOCKSTITCH) GLUCOSE POC 228(H) 65 - 109 mg/dL INTERFACE SYSTEM 04/17/2005 4:50 PM CUFF SETTER LOCKSTITCH Cirilo Buenrostro MD POINT OF CARE TESTING Fin al Result Performing Organization Address [facility] de Phone Number INTERFACE SYSTEM Refer to clinic/hospital department * (ABNORMAL) POC GLUCOSE (04/17/2005 11:06 AM CUFF SETTER LOCKSTITCH) GLUCOSE POC 141(H) 65 - 109 mg/dL INTERFACE SYSTEM 04/17/2005 11:0 6 AM CUFF SETTER LOCKSTITCH Cirilo Buenrostro MD POINT OF CARE TESTING Fin al Result Performing Organization Address [facility] de Phone Number INTERFACE SYSTEM Refer to clinic/hospital department * (ABNORMAL) POC GLUCOSE (04/17/2005 6:13 AM CUFF SETTER LOCKSTITCH) GLUCOSE POC 115(H) 65 - 109 mg/dL INTERFACE SYSTEM 04/17/2005 6:13 AM CUFF SETTER LOCKSTITCH Cirilo Buenrostro MD POINT OF CARE TESTING Fin al Result Performing Organization Address [facility] de Phone Number INTERFACE SYSTEM Refer to clinic/hospital department * POC GLUCOSE (04/17/2005 4:45 AM CUFF SETTER LOCKSTITCH) GLUCOSE POC 99 65 - 109 mg/dL INTERFACE SYSTEM 04/17/2005 4:45 AM CUFF SETTER LOCKSTITCH Cirilo Buenrostro MD POINT OF CARE TESTING Fin al Result Performing Organization Address [facility] Phone Number INTERFACE SYSTEM Refer to clinic/hospital department * (ABNORMAL) CBC WITH DIFFERENTIAL (04/17/2005 4:23 AM CUFF SETTER LOCKSTITCH) NEUTROPHILS 83(H) 45 - 70 % INTERFAC [...] 0.20 K/uL INTERFACE SYSTEM 04/17/2005 4:23 AM CUFF SETTER LOCKSTITCH Max Jhaveri MD HEMATOLOGY ORDERABLES Final R esult Performing Organization Address [facility] de Phone Number INTERFACE SYSTEM Refer to clinic/hospital department * (ABNORMAL) CBC WITH DIFFERENTIAL (04/17/2005 4:23 AM CUFF SETTER LOCKSTITCH) WBC 8.5 4.0 - 9.8 K/uL INTERFACE [...] 12.4 fL INTERFACE SYSTEM 04/17/2005 4:23 AM CUFF SETTER LOCKSTITCH Max Jhaveri MD HEMATOLOGY ORDERABLES Final R esult Performing Organization Address [facility] Phone Number INTERFACE SYSTEM Refer to clinic/hospital department * MAGNESIUM LEVEL (04/17/2005 4:23 AM CUFF SETTER LOCKSTITCH) MAGNESIUM 1.8 1.5 - 2.5 mg/dL INTERFACE SYSTEM 04/17/2005 4:23 AM CUFF SETTER LOCKSTITCH Max Jhaveri MD CHEMISTRY ORDERABLES Final Re sult Performing Organization Address [facility] Phone Number INTERFACE SYSTEM Refer to clinic/hospital department * (ABNORMAL) PT AND APTT (04/17/2005 4:23 AM CUFF SETTER LOCKSTITCH) PROTIME 16.4(H) 12.7 - 15.1 Seconds INTERFACE SYSTEM INR 1.2(H) 0.9 - 1.1 INTERFACE SYSTEM Comment: INR Therapeutic Range: Adult: 2.0 - 3.0 for pulmonary embolism or prophylaxis against venous thrombosis or systemic embolization. 2.0 - 3.0 for patients with tissue heart valves. 2.5 - 3.5 for patients with mechanical heart valves or post VT. Pediatric (12 years and under): 1.5 - [...] range for unfractionated heparin 04/17/2005 4:23 AM CUFF SETTER LOCKSTITCH Max Jhaveri MD HEMATOLOGY ORDERABLES Final R esult Performing Organization Address [facility]/ZIP Co de Phone Number INTERFACE SYSTEM Refer to clinic/hospital department * (ABNORMAL) COMPREHENSIVE METABOLIC PANEL (04/17/2005 4:23 AM CUFF SETTER LOCKSTITCH) GLUCOSE 101 65 - 109 mg/dL INTERFACE [...] 30 mmol/L INTERFACE SYSTEM 04/17/2005 4:23 AM CUFF SETTER LOCKSTITCH Max Jhaveri MD CHEMISTRY ORDERABLES Final Re sult Performing Organization Address [facility]/ZIP Co de Phone Number INTERFACE SYSTEM Refer to clinic/hospital department * (ABNORMAL) POC GLUCOSE (04/17/2005 1:59 AM CUFF SETTER LOCKSTITCH) GLUCOSE POC 134(H) 65 - 109 mg/dL INTERFACE SYSTEM 04/17/2005 1:59 AM CUFF SETTER LOCKSTITCH Cirilo Buenrostro MD POINT OF CARE TESTING Fin al Result Performing Organization Address [facility] Phone Number INTERFACE SYSTEM Refer to clinic/hospital department * (ABNORMAL) HEMOGLOBIN AND HEMATOCRIT (04/17/2005 1:00 AM CUFF SETTER LOCKSTITCH) HEMOGLOBIN 11.8 11.8 - 14.8 g/dL INTERFACE SYSTEM HEMATOCRIT 35.3(L) 35.5 - 44.0 % INTERFACE SYSTEM 04/17/2005 1:00 AM CUFF SETTER LOCKSTITCH Max Jhaveri MD HEMATOLOGY ORDERABLES Final R esult Performing Organization Address [facility] Phone Number INTERFACE SYSTEM Refer to clinic/hospital department * POTASSIUM LEVEL (04/17/2005 1:00 AM CUFF SETTER LOCKSTITCH) Pathologist [facility] POTASSIUM 4.1 3.5 - 4.9 mmol/L INTERFACE SYSTEM 04/17/2005 1:00 AM CUFF SETTER LOCKSTITCH Max Jhaveri MD CHEMISTRY ORDERABLES Final Re sult Performing Organization Address [facility] Phone Number INTERFACE SYSTEM Refer to clinic/hospital department * (ABNORMAL) CVR ONLY, CKMB/CK (04/17/2005 1:00 AM CUFF SETTER LOCKSTITCH) CKMB 22.5(AA) <=3.8 ng/mL INTERFACE SYSTEM Comment:Persistent abnormal result CKMB INTERP See Below INTERFAC E SYSTEM Comment:Elevated CKMB,consis tent with Myocardial Injury CK 325(H) 10 - 145 U/L INTERFACE SYSTEM CARDIAC RELATIVE INDEX 6.9(H) <=4.0 INTERFACE SYSTEM 04/17/2005 1:00 AM CUFF SETTER LOCKSTITCH Max Jhaveri MD CHEMISTRY ORDERABLES Final Re sult Performing Organization Address [facility]/ZIP Co de Phone Number INTERFACE SYSTEM Refer to clinic/hospital department * (ABNORMAL) POC GLUCOSE (04/17/2005 12:53 AM CUFF SETTER LOCKSTITCH) GLUCOSE POC 145(H) 65 - 109 mg/dL INTERFACE SYSTEM 04/17/2005 12:5 3 AM CUFF SETTER LOCKSTITCH Cirilo Buenrostro MD POINT OF CARE TESTING Fin al Result Performing Organization Address [facility] de Phone Number INTERFACE SYSTEM Refer to clinic/hospital department * (ABNORMAL) POC GLUCOSE (04/16/2005 11:21 PM CUFF SETTER LOCKSTITCH) GLUCOSE POC 160(H) 65 - 109 mg/dL INTERFACE SYSTEM 04/16/2005 11:2 1 PM CUFF SETTER LOCKSTITCH Cirilo Buenrostro MD POINT OF CARE TESTING Fin al Result Performing Organization Address [facility] de Phone Number INTERFACE SYSTEM Refer to clinic/hospital department * (ABNORMAL) POC GLUCOSE (04/16/2005 10:17 PM CUFF SETTER LOCKSTITCH) GLUCOSE POC 159(H) 65 - 109 mg/dL INTERFACE SYSTEM 04/16/2005 10:1 7 PM CUFF SETTER LOCKSTITCH Cirilo Buenrostro MD POINT OF CARE TESTING Fin al Result Performing Organization Address [facility] de Phone Number INTERFACE SYSTEM Refer to clinic/hospital department * (ABNORMAL) POC GLUCOSE (04/16/2005 9:29 PM CUFF SETTER LOCKSTITCH) GLUCOSE POC 178(H) 65 - 109 mg/dL INTERFACE SYSTEM 04/16/2005 9:29 PM CUFF SETTER LOCKSTITCH Cirilo Buenrostro MD POINT OF CARE TESTING Fin al Result Performing Organization Address [facility] de Phone Number INTERFACE SYSTEM Refer to clinic/hospital department * (ABNORMAL) POC RT, BLOOD GASES (04/16/2005 8:45 PM CUFF SETTER LOCKSTITCH) PH ARTERIAL 7.40 7.35 - 7.45 INTERFACE [...] RN AWARE INTERFACE SYSTEM 04/16/2005 8:45 PM CUFF SETTER LOCKSTITCH Cirilo Buenrostro MD CHEMISTRY ORDERABLES Sommer l Result Performing Organization Address [facility] Co de Phone Number INTERFACE SYSTEM Refer to clinic/hospital department * (ABNORMAL) POC GLUCOSE (04/16/2005 8:26 PM CUFF SETTER LOCKSTITCH) GLUCOSE POC 190(H) 65 - 109 mg/dL INTERFACE SYSTEM 04/16/2005 8:26 PM CUFF SETTER LOCKSTITCH Cirilo Buenrostro MD POINT OF CARE TESTING Fin al Result Performing Organization Address [facility] de Phone Number INTERFACE SYSTEM Refer to clinic/hospital department * POTASSIUM LEVEL (04/16/2005 8:00 PM CUFF SETTER LOCKSTITCH) POTASSIUM 3.8 3.5 - 4.9 mmol/L INTERFACE SYSTEM Comment: Testing was performed on Serum. Specimen of choice is Tok Heparinized Plasma. Serum Potassium Reference Range: 5 years - 150 years 3.5 - 5.0 mmol/L 1 year - 5 years 3.4 - 4.7 mmol/L 15 days - 1 year 4.1 - 5.3 mmol/L 0 days - 15 days 3.7 - 5.9 mmol/L 04/16/2005 8:00 PM CUFF SETTER LOCKSTITCH Max Jhaveri MD CHEMISTRY ORDERABLES Final Re sult Performing Organization Address [facility] Phone Number INTERFACE SYSTEM Refer to clinic/hospital department * MAGNESIUM LEVEL (04/16/2005 8:00 PM CUFF SETTER LOCKSTITCH) MAGNESIUM 2.1 1.5 - 2.5 mg/dL INTERFACE SYSTEM 04/16/2005 8:00 PM CUFF SETTER LOCKSTITCH Max Jhaveri MD CHEMISTRY ORDERABLES Final Re sult Performing Organization Address [facility] Phone Number INTERFACE SYSTEM Refer to clinic/hospital department * (ABNORMAL) POC GLUCOSE (04/16/2005 7:51 PM CUFF SETTER LOCKSTITCH) GLUCOSE POC 186(H) 65 - 109 mg/dL INTERFACE SYSTEM 04/16/2005 7:51 PM CUFF SETTER LOCKSTITCH Cirilo Buenrostro MD POINT OF CARE TESTING Fin al Result Performing Organization Address [facility] Phone Number INTERFACE SYSTEM Refer to clinic/hospital department * (ABNORMAL) POC GLUCOSE (04/16/2005 6:31 PM CUFF SETTER LOCKSTITCH) GLUCOSE POC 167(H) 65 - 109 mg/dL INTERFACE SYSTEM 04/16/2005 6:31 PM CUFF SETTER LOCKSTITCH Cirilo Buenrostro MD POINT OF CARE TESTING Fin al Result Performing Organization Address [facility] de Phone Number INTERFACE SYSTEM Refer to clinic/hospital department * (ABNORMAL) POC GLUCOSE (04/16/2005 5:36 PM CUFF SETTER LOCKSTITCH) GLUCOSE POC 148(H) 65 - 109 mg/dL INTERFACE SYSTEM 04/16/2005 5:36 PM CUFF SETTER LOCKSTITCH Cirilo Buenrostro MD POINT OF CARE TESTING Fin al Result Performing Organization Address [facility] de Phone Number INTERFACE SYSTEM Refer to clinic/hospital department * (ABNORMAL) POC GLUCOSE (04/16/2005 4:19 PM CUFF SETTER LOCKSTITCH) GLUCOSE POC 143(H) 65 - 109 mg/dL INTERFACE SYSTEM 04/16/2005 4:19 PM CUFF SETTER LOCKSTITCH Cirilo Buenrostro MD POINT OF CARE TESTING Fin al Result Performing Organization Address [facility] de Phone Number INTERFACE SYSTEM Refer to clinic/hospital department * (ABNORMAL) POC RT, BLOOD GASES (04/16/2005 4:05 PM CUFF SETTER LOCKSTITCH) PH ARTERIAL 7.44 7.35 - 7.45 INTERFACE [...] RN NOTIFIED INTERFACE SYSTEM 04/16/2005 4:05 PM CUFF SETTER LOCKSTITCH Cirilo Buenrostro MD CHEMISTRY ORDERABLES Sommer l Result Performing Organization Address [facility] Co de Phone Number INTERFACE SYSTEM Refer to clinic/hospital department * (ABNORMAL) CVR ONLY, CKMB/CK (04/16/2005 3:57 PM CUFF SETTER LOCKSTITCH) CKMB 28.2(AA) <=3.8 ng/mL INTERFACE SYSTEM Comment:Results called to ba rb at 04/16/2005 4:50 PM and read back verified. CKMB INTERP See Below INTERFAC E SYSTEM Comment:Elevated CKMB,consis tent with Myocardial Injury. CK 234(H) 10 - 145 U/L INTERFACE SYSTEM CARDIAC RELATIVE INDEX 12.0(H) <=4.0 INTERFACE SYSTEM 04/16/2005 3:57 PM CUFF SETTER LOCKSTITCH Max Jhaveri MD CHEMISTRY ORDERABLES Final Re sult Performing Organization Address [facility] Phone Number INTERFACE SYSTEM Refer to clinic/hospital department * (ABNORMAL) CBC WITH DIFFERENTIAL (04/16/2005 3:57 PM CUFF SETTER LOCKSTITCH) NEUTROPHILS 77(H) 45 - 70 % INTERFAC [...] 0.20 K/uL INTERFACE SYSTEM 04/16/2005 3:57 PM CUFF SETTER LOCKSTITCH Max Jhaveri MD HEMATOLOGY ORDERABLES Final R esult Performing Organization Address [facility] de Phone Number INTERFACE SYSTEM Refer to clinic/hospital department * (ABNORMAL) CBC WITH DIFFERENTIAL (04/16/2005 3:57 PM CUFF SETTER LOCKSTITCH) WBC 8.3 4.0 - 9.8 K/uL INTERFACE [...] 12.4 fL INTERFACE SYSTEM 04/16/2005 3:57 PM CUFF SETTER LOCKSTITCH Max Jhaveri MD HEMATOLOGY ORDERABLES Final R esult Performing Organization Address [facility] Phone Number INTERFACE SYSTEM Refer to clinic/hospital department * (ABNORMAL) PT AND APTT (04/16/2005 3:57 PM CUFF SETTER LOCKSTITCH) PROTIME 17.9(H) 12.7 - 15.1 Seconds INTERFACE SYSTEM INR 1.4(H) 0.9 - 1.1 INTERFACE SYSTEM Comment: INR Therapeutic Range: Adult: 2.0 - 3.0 for pulmonary embolism or prophylaxis against venous thrombosis or systemic embolization. 2.0 - 3.0 for patients with tissue heart valves. 2.5 - 3.5 for patients with mechanical heart valves or post VT. Pediatric (12 years and under): 1.5 - [...] range for unfractionated heparin 04/16/2005 3:57 PM CUFF SETTER LOCKSTITCH Max Jhaveri MD HEMATOLOGY ORDERABLES Final R esult Performing Organization Address [facility] de Phone Number INTERFACE SYSTEM Refer to clinic/hospital department * MAGNESIUM LEVEL (04/16/2005 3:57 PM CUFF SETTER LOCKSTITCH) MAGNESIUM 1.9 1.5 - 2.5 mg/dL INTERFACE SYSTEM 04/16/2005 3:57 PM CUFF SETTER LOCKSTITCH Max Jhaveri MD CHEMISTRY ORDERABLES Final Re sult Performing Organization Address [facility] Phone Number INTERFACE SYSTEM Refer to clinic/hospital department * (ABNORMAL) BASIC METABOLIC PANEL (04/16/2005 3:57 PM CUFF SETTER LOCKSTITCH) GLUCOSE 142(H) 65 - 109 mg/dL INTERFACE [...] and redraw if necessary. 04/16/2005 3:57 PM CUFF SETTER LOCKSTITCH Max Jhaveri MD CHEMISTRY ORDERABLES Final Re sult Performing Organization Address [facility] Phone Number INTERFACE SYSTEM Refer to clinic/hospital department * LIPID PANEL (04/16/2005 6:10 AM CUFF SETTER LOCKSTITCH) LIPID PANEL COMMENT See below INTERFACE SYSTEM [...] section for risk classifications. 04/16/2005 6:10 AM CUFF SETTER LOCKSTITCH Cirilo Buenrostro MD CHEMISTRY ORDERABLES Sommer l Result Performing Organization Address [facility] Phone Number INTERFACE SYSTEM Refer to clinic/hospital department * (ABNORMAL) URINALYSIS (04/15/2005 4:23 PM CUFF SETTER LOCKSTITCH) COLOR UA Yellow INTERFACE SYSTEM CLARITY UA [...] Seen /HPF INTERFACE SYSTEM 04/15/2005 4:23 PM CUFF SETTER LOCKSTITCH Cirilo Buenrostro MD URINE ORDERABLES Final Re sult Performing Organization Address [facility] Phone Number INTERFACE SYSTEM Refer to clinic/hospital department * BASIC METABOLIC PANEL PLUS (04/15/2005 12:40 PM CUFF SETTER LOCKSTITCH) AST 21 12 - 32 U/L INTERFACE SYSTEM ALKALINE PHOSPHATASE 65 35 - 104 U/L INTERFACE SYSTEM BILIRUBIN TOTAL 0.3 0.2 - 1.0 mg/dL INTERFACE SYSTEM ALBUMIN 4.0 3.4 - 4.8 g/dL INTERFACE SYSTEM TOTAL PROTEIN 7.3 6.3 - 8.6 g/dL INTERFACE SYSTEM ALT 20 0 - 31 U/L INTERFACE SYSTEM 04/15/2005 12:4 0 PM CUFF SETTER LOCKSTITCH Cirilo Buenrostro MD CHEMISTRY ORDERABLES Sommer l Result Performing Organization Address [facility] de Phone Number INTERFACE SYSTEM Refer to clinic/hospital department * CBC WITH DIFFERENTIAL (04/15/2005 12:40 PM CUFF SETTER LOCKSTITCH) NEUTROPHILS 56 45 - 70 % INTERFAC [...] K/uL INTERFACE SYSTEM 04/15/2005 12:4 0 PM CUFF SETTER LOCKSTITCH Cirilo Buenrostro MD HEMATOLOGY ORDERABLES Fin al Result Performing Organization Address [facility] de Phone Number INTERFACE SYSTEM Refer to clinic/hospital department * (ABNORMAL) CBC WITH DIFFERENTIAL (04/15/2005 12:40 PM CUFF SETTER LOCKSTITCH) WBC 3.7(L) 4.0 - 9.8 K/uL INTERFACE [...] fL INTERFACE SYSTEM 04/15/2005 12:4 0 PM CUFF SETTER LOCKSTITCH Cirilo Buenrostro MD HEMATOLOGY ORDERABLES Fin al Result Performing Organization Address [facility] de Phone Number INTERFACE SYSTEM Refer to clinic/hospital department * PT AND APTT (04/15/2005 12:40 PM CUFF SETTER LOCKSTITCH) PROTIME 14.8 12.7 - 15.1 Seconds INTERFACE SYSTEM INR 1.1 0.9 - 1.1 INTERFACE SYSTEM Comment: INR Therapeutic Range: Adult: 2.0 - 3.0 for pulmonary embolism or prophylaxis against venous thrombosis or systemic embolization. 2.0 - 3.0 for patients with tissue heart valves. 2.5 - 3.5 for patients with mechanical heart valves or post VT. Pediatric (12 years and under): 1.5 - [...] for unfractionated heparin 04/15/2005 12:4 0 PM CUFF SETTER LOCKSTITCH Cirilo Buenrostro MD HEMATOLOGY ORDERABLES Fin al Result Performing Organization Address [facility] de Phone Number INTERFACE SYSTEM Refer to clinic/hospital department * (ABNORMAL) BASIC METABOLIC PANEL (04/15/2005 12:40 PM CUFF SETTER LOCKSTITCH) GLUCOSE 145(H) 65 - 109 mg/dL INTERFACE [...] mmol/L INTERFACE SYSTEM 04/15/2005 12:4 0 PM CUFF SETTER LOCKSTITCH us Cirilo Buenrostro MD CHEMISTRY ORDERABLES Sommer avila Result INTERFACE SYSTEM Refer to clinic/hospital department documented in this encounter Visit Diagnoses Diagnosis Coronary atherosclerosis of [place] coronary artery- Primary documented in this encounter
--- NOTE | 2024-05-23 06:07 | PC.NURSE ---
Attempted to call report to [facility]. No answer.
[2024-05-23 06:19] VITALS: BP 155/64; PULSE 63; RESP 17; O2SAT 94
[2024-05-23 08:15] VITALS: BP 123/59; PULSE 68; RESP 15; TEMP 36.7; O2SAT 92
== END 2024-05-23 08:48 ==
LOC: ANHED 05:13
PROVIDERS: Emergency Provider Emergency Medicine; PCP Family Medicine
DX: M25.561 Pain in right knee (principal); I11.0 Hypertensive heart disease with heart failure; I50.9 Heart failure, unspecified; I25.10 Atherosclerotic heart disease of native coronary artery without angina pectoris; E11.9 Type 2 diabetes mellitus without complications; Z79.4 Long term (current) use of insulin; Z87.442 Personal history of urinary calculi; I25.2 Old myocardial infarction
CPT/HCPCS: 73564; 99283; A9270

== ENCOUNTER 2024-07-18 12:17 | Emergency (ER) | payer MEDICARE, OTHER, SELFPAY ==
[2024-07-18] VITALS (10 sets, daily range): BP systolic 129–150; BP diastolic 47–118; PULSE 64–81; RESP 16–26; TEMP 36.6; O2SAT 95–100
--- NOTE | ~2024-07-18 | CT_ITS ---
EXAMINATION: CT abdomen pelvis w con DATE: 07/18/2024 13:31 INDICATION: Abdominal pain TECHNIQUE: Computed tomography (CT) of the abdomen and pelvis was performed with 100 mL Omnipaque-350 intravenous contrast. Automated exposure control and iterative reconstruction technique were employe d. The dose-length product was 854.85 mGy-cm. COMPARISON: 03/21/2024 and 02/17/2024 FINDINGS: Lung bases are clear. Heart size normal. Atherosclerotic coronary artery calcific lesion. No pericard ial or pleural effusion. Small sliding-type hiatal hernia. Stable appearance of chronic mild intrahep atic and extra hepatic biliary ductal dilation with common bile duct measuring up to 8 mm which is li stefano related to prior cholecystectomy with surgical clips at the gallbladder fossa. Spleen, pancreas, bilateral adrenal glands and right kidney are normal. 1.4 similar exophytic cyst arising from the up per pole of the left kidney. Bowels are normal including a normal retrocecal appendix. Bladder is nor mal. Age-appropriate uterine atrophy. No free intraperitoneal gas or fluid. No pathologically enlarge d abdominal or pelvic lymphadenopathy. Small fat-containing umbilical hernia. Mild lumbar levoscolios is with severe lumbar and lower thoracic spondylosis. Grade 1 anterolisthesis L4 on L5 and L5 on S1 t he latter with associated instrumented posterior spinal fusion with bilateral vertical yassine and pedicl e screw fixation.. IMPRESSION: 1. No acute intra-abdominal/pelvic process. 2. Small sliding-type hiatal hernia. Reviewed, dictated and finalized at location A.
[2024-07-18 12:55] LABS: Add Urine Microscopic? NO; Appearance Urine Clear (Clear); Bilirubin Urine Negative (Negative); Blood Urine Negative (Negative); Color Urine Yellow (Yellow); Glucose Urine UA Trace mg/dL (Negative); Ketones Urine Trace mg/dL (Negative); Leukocyte Esterase Ur Negative LEU/UL (Negative); Nitrate Urine Negative (Negative); Protein Urine Negative (Negative); Specific Grav Ur 1.017 (1.001-1.035); Urobilinogen Urine 0.2 mg/dL (<2.0); pH Urine 7.5 (5.0-9.0)
[2024-07-18 12:56] LABS: Basophils Absolute Auto 0.1 K/mm3 (0.0-0.1); Basophils Percent Auto 0.8 % (0.2-1.2); Eosinophils Absolute Auto 0.3 K/mm3 (0-0.3); Eosinophils Percent Auto 3.4 % (0-4.4); Hematocrit 33.6 % (37.0-47.0); Hemoglobin 10.9 g/dL (12.0-15.0); Immature Granulocyte Absolute 0.01 K/mm3 (0.00-0.031); Immature Granulocyte Percent A 0.1 % (0-0.5); Lymphocytes Absolute Auto 2.03 K/mm3 (0.9-3.2); Lymphocytes Percent Auto 26.7 % (18.3-44.2); Mean Corpuscular HGB Conc 32.4 g/dl (32-36); Mean Corpuscular Volume 95.5 fl (80-100); Mean Platelet Volume 12.3 fl (7.4-10.4); Monocytes Absolute Auto 0.9 K/mm3 (0.1-0.6); Monocytes Percent Auto 11.4 % (2.6-8.5); Neutrophils Absolute Auto 4.4 K/mm3 (1.3-6.7); Neutrophils Percent Auto 57.6 % (45.5-73.1); Platelet Count Result 194 k/mm3 (150-375); Red Blood Count 3.52 M/mm3 (4.2-5.4); Red Cell Distribution Width 13.2 % (11.5-14.5); White Blood Count 7.6 K/mm3 (4.5-10.0)
--- NOTE | 2024-07-18 12:56 | ECG_ITS ---
Test Date: 2024-07-18 14:04:04 Measurements Intervals [place] Rate: 75 P: -18 MS: 154 QRS: 19 QRSD: 161 T: -23 QT: 465 QTc: 521 Interpretive Statements SINUS RHYTHM POSSIBLE LEFT ATRIAL ENLARGEMENT IIVCD, WITH FEATURES OF BOTH RIGHT BUNDLE BRANCH BLOCK AND LBBB HIGH LATERAL INFARCT, AGE INDETERMINATE INFERIOR INFARCT, AGE INDETERMINATE BASELINE ARTIFACT- I, II, III, AVR, AVL, AVF, V4-V6 ABNORMAL ECG Compared to ECG 05/17/2024 16:24:19 HEART RATE HAS INCREASED Electronically Signed On 07-18-2024 14:11:28 CDT by José Antonio Rodgers D.O.
[2024-07-18 13:05] LABS: Alanine Aminotransferase 16 U/L (6-35); Albumin Level 3.8 g/dL (3.5-5.1); Alkaline Phosphatase 78 U/L (38-126); Anion Gap 10 mmol/L (4-12); Aspartate Amino Transferase 22 U/L (14-36); Bilirubin,Total 0.2 mg/dL (0.2-1.3); Blood Urea Nitrogen 39 mg/dL (7-17); Calcium 9.2 mg/dL (8.4-10.2); Carbon Dioxide 24 mmol/L (22-30); Chloride 101 mmol/L (98-107); Estimated CRCL calculation 36 ml/min; Estimated Glomerular Filt Rate 49; Glucose 198 mg/dL (65-110); Lipase 199 U/L (23-300); Potassium 4.2 mmol/L (3.4-5.0); Sodium 135 mmol/L (137-145)
--- OUTSIDE RECORDS SUMMARY | 2024-07-18 13:15 | XMS_ITS | Referral Summary ---
Author Organization [facility] [address] Address [address] [place] [address] Care Team Providers Care Facility Planner Name Role Phone Catalina Mejia MD Primary Care Provider + [phone] Josef Groves MD Unavailable [phone] Allergies No known active allergies Medications [...] flash glucose scanning reader (FreeStyle Haritha 2 [place]) [facility] [place] [place] USE DIRECTED 1 each [...] (07/22/2020): Added automatically from request for surgery [id number] Chronic cholecystitis with calculus 03/27/2020 Calculus of gallbladder with chronic cholecystitis without obstruction 03/27/2020 Overview (03/27/2020): Added automatically from request for surgery [id number] Type 2 diabetes mellitus wit h hyperglycemia, with long-term current use of insulin ([facility]) 07/15/2017 Assessment & Plan (08/11/2022 [...] provided as she was driving back to [employer]. Instructed not to drive until all 8 [...] rosuvastatin Assessment & Plan (05/27/2022 5:14 PM STRIP STAMP STRAIGHTENER): This is a chronic condition which is [...] care discussed. Coronary artery disease invo lving [place] coronary artery of [place] heart without angina pectoris 01/28/2017 Hx of [...] prescribed. Assessment & Plan (05/27/2022 5:15 PM STRIP STAMP STRAIGHTENER): This is a chronic condition. goal - LDL less than 70 Continue rosuvastatin. Encouraged to eat healthy, include fresh fruits and vegetables daily and avoid eating fried foods more than once per week. Encouraged to take medications as prescribed. Repeat lipid panel ordered. Assessment & Plan (03/11/2018 8:31 AM STRIP STAMP STRAIGHTENER): Continue statin and follow up with cardiology [...] prescribed. Assessment & Plan (05/27/2022 5:15 PM STRIP STAMP STRAIGHTENER): This is a chronic condition which is [...] ARB Assessment & Plan (03/11/2018 8:31 AM STRIP STAMP STRAIGHTENER): Controlled on current medications. Assessment & Plan [...] (10/05/2017): Added automatically from request for surgery [id number] Cellulitis of left lower extremity 12/28/2016 04/03/2020 [...] Farxiga. Assessment & Plan (03/11/2018 8:30 AM STRIP STAMP STRAIGHTENER): A1c is 9.5. Increase Levemir to 34 [...] goal hba1c is under 7.0 to prevent bed bug exterminator diabetes complications ( eye , kidney and [...] on file Legal Sex Female 10:56 AM STRIP STAMP STRAIGHTENER Gender Identity Not on file Sexual Orientation Not on file Last Filed Vital Signs Vital Sign Reading Time Taken Comments Blood Pressure 118/64 08/11/2022 4:01 PM CDT Pulse 65 05/26/2022 2:15 PM STRIP STAMP STRAIGHTENER Temperature 36.3 C (97.3 F) 09/16/2020 8:32 AM CDT Respiratory Rate 15 09/16/2020 9:28 AM CDT Oxygen Saturation 97% 05/26/2022 2:15 PM STRIP STAMP STRAIGHTENER Inhaled Oxygen Concentration - - Weight 81.2 kg (179 lb) 08/11/2022 4:01 PM CDT Height 162.6 cm (5' 4 ) 08/11/2022 4:01 PM CDT Body Mass Index 30.73 08/11/2022 4:01 PM CDT Plan of Treatment Not on file Procedures Procedure Name Priority Date/Time Associated Diagnosis Comments EGFR Routine 03/31/2024 10:51 AM STRIP STAMP STRAIGHTENER LIPID PANEL Routine 03/31/2024 10:51 AM STRIP STAMP STRAIGHTENER POCT HEMOGLOBIN A1C Routine 08/11/2022 4 :07 PM CDT Type 2 diabetes mellitus with hyperglycemia, with long-term current use of insulin (HCC) ALBUMIN CREATININE RATIO, URINE Routine 06/01/2022 8:10 AM STRIP STAMP STRAIGHTENER Type 2 diabetes mellitus with hyperglycemia, with long-term current use of insulin (HCC) COLONOSCOPY 09/16/2020 8:22 AM CDT from Last 3 Months or Most Recently Relevant to Health Maintenance Results * eGFR (03/31/2024 10:51 AM STRIP STAMP STRAIGHTENER) eGFR 82 >=60 mL/min/1. 73 m2 Comment: [...] of Race in Diagnosing Kidney Disease, JASN 202). The CKD-EPI equation should not be used for patients with unstable renal function and has not been validated in children and those over 70. Current interpretive data was last reviewed 2021. Blood 03/31/2024 10:5 1 AM STRIP STAMP STRAIGHTENER 03/31/2024 5:14 PM STRIP STAMP STRAIGHTENER us Notinfile Unknown LAB BLOOD ORDERABLES Final Res ult [facility] [address] Department [place] [address] * Lipid panel (03/31/2024 10:51 AM STRIP STAMP STRAIGHTENER) Cholesterol 177 30 - 199 mg/dL Comment: [...] revised on 2017. Triglycerides 96 <=149 mg/dL [facility] Comment: Interpretive Data Ages < [...] revised on 2017. HDL 53 >=40 mg/dL [facility] Comment: Interpretive Data Ages < [...] on 2017. LDL, calculated 106 <=129 mg/dL [facility] Comment: Interpretive Data Ages < [...] 3. Brandon Sheikh et al. DANIEL Cardiol. 2019August 03;5(5):540-548. doi: 10.1001/jamacardio.2020.0013 Current Interpretive Data was last revised on 2023. Non-HDL Cholesterol 124 mg/dL [facility] Comment: Interpretive Data Ages < [...] last revised on 2017. Chol/HDL ratio 3 [facility] Blood 03/31/2024 10:5 1 AM STRIP STAMP STRAIGHTENER 03/31/2024 2:12 PM STRIP STAMP STRAIGHTENER us Notinfile Unknown LAB BLOOD ORDERABLES Final Res ult [facility] [address] Department [place] [address] * POCT hemoglobin A1c (08/11/2022 4:07 PM CDT) Hemoglobin A1C, POC 7.2 % Blood 08/11/2022 4:07 PM CDT Yennifer Cosby PIPE FITTER SUPERVISOR MAINTENANCE POINT OF CARE TEST ORDERABLES F inal Result * (ABNORMAL) Albumin Creatinine Ratio, Urine (06/01/2022 8:10 AM STRIP STAMP STRAIGHTENER) Albumin Ur 112.4 mg/L [facility] ([place]) Comment: Interpretive Data No reference range established. Current interpretive data was last revised 2018. Testing performed by: [facility], [address] [place] [address]., [id number] Creatinine Ur 107.2 mg/dL [facility] ([place]) Comment: Interpretive Data No reference range established. Current interpretive data was last revised 2018. Testing performed by: [facility], [address] [place] [address]., [id number] Albumin Creatinine Ratio, Ur 105(H) 1 - 29 mg/g [facility] ([place]) Comment:Testing performed by : [facility], [address] [place] [address]., [id number] Urine 06/01/2022 8:10 AM STRIP STAMP STRAIGHTENER 06/01/2022 11:15 AM STRIP STAMP STRAIGHTENER Yennifer Cosby PIPE FITTER SUPERVISOR MAINTENANCE LAB URINE ORDERABLES Final Resu lt [facility] ([place]) 1 [facility] Department [place] [address] * COLONOSCOPY (09/16/2020 8:22 AM CDT) Anatomical Region Laterality Modality Other Narrative Procedure Note Danitza Sawyer MD - 09/16/2020 8:22 AM CDT ENDOSCOPY LAB Patient Name: Ana M Junior Procedure Date: 09/16/2020 8:22 AM Admit Type: Outpatient Room: [facility] 2 Date of : 1945 Instrument Name: [id number] [...] ofthe bowel preparation was evaluated using the BBPS([place] Bowel Preparation Scale) with scores of: RightColon [...] 09/16/2020 8:22 AM Scope In: Scope Out: us Danitza Sawyer MD ENDOSCOPY PROCEDURES Final Resul t from Last 3 Months or Most Recently Relevant to Health Maintenance Insurance [facility] [id number] [place] [address] [facility] [employer] [facility] OPEN ACCESS [address] [facility] [id number] MEDICARE Advance Directives For more information, please contact: [phone] * Full Code (Latest Code Status on File) Date Activated Date Inactivated Comments 09/16/2020 7:53 AM 09/16/2020 1:51 PM * Full Code Date Activated Date Inactivated Comments 04/08/2020 8:07 PM 04/09/2020 3:48 PM * Full Code Date Activated Date Inactivated Comments 12/04/2019 7:00 AM 12/04/2019 1:23 PM * Full Code Date Activated Date Inactivated Comments 10/02/2019 11:59 AM 10/02/2019 5:31 PM Care Teams Facility Planner Relationship Specialty Start Date End Date Catalina Mejia MD [address] [place] [address] PCP - General Internal Medicine 09/05/19 Josef Groves MD [address] [place] [address] Consulting Physician General Surgery 04/08/20
--- OUTSIDE RECORDS SUMMARY | 2024-07-18 13:15 | XMS_ITS | Encounter Summary ---
Author Organization [facility] Address [address] [place] [address] Care Team Providers Care Investment Accounting Clerk Name Role Phone Unavailable Primary Care Provider Unavailabl e Encounter Details Date Type Department Care Team (Late st Contact Info) Description 04/15/[address] [facility] Cardiovas and Thor Surg at [facility] Heart [address] [address] Max Jhaveri MD [address] [place] [phone] Social History Tobacco Use Types Packs/Day Years Used Date Smoking Tobacco: Never Assessed Comments Unknown Sex and Gender Information Value Date Recorded Sex Assigned at Not on file Legal Sex Female 5:02 AM OPERATOR SUPPLY Gender Identity Not on file Sexual Orientation Not on file documented as of this encounter Plan of Treatment Not on file documented as of this encounter Visit Diagnoses Not on filedocumented in this encounter
--- OUTSIDE RECORDS SUMMARY | 2024-07-18 13:15 | XMS_ITS | Clinical Summary ---
Author Organization [facility] [address] Address [address] [place] [address] Care Team Providers Care Business Intelligence Developer Name Role Phone Catalina Mejia MD Primary Care Provider + [phone] Josef Groves MD Unavailable [phone] Allergies No known active allergies Medications [...] flash glucose scanning reader (FreeStyle Haritha 2 [place]) [facility] [place] DIRECTED 1 each 1 3 Active [...] (07/22/2020): Added automatically from request for surgery [id number] Chronic cholecystitis with calculus 03/27/2020 Calculus of gallbladder with chronic cholecystitis without obstruction 03/27/2020 Overview (03/27/2020): Added automatically from request for surgery [id number] Type 2 diabetes mellitus wit h hyperglycemia, with long-term current use of insulin ([facility]) 07/15/2017 Assessment & Plan (08/11/2022 4:37 [...] provided as she was driving back to [email or web address]. Instructed not to drive until all 8 [...] rosuvastatin Assessment & Plan (05/27/2022 5:14 PM OBSTETRIC ANAESTHETIST): This is a chronic condition which is [...] care discussed. Coronary artery disease invo lving [place] coronary artery of [place] heart without angina pectoris 01/28/2017 Hx of [...] prescribed. Assessment & Plan (05/27/2022 5:15 PM OBSTETRIC ANAESTHETIST): This is a chronic condition. goal - LDL less than 70 Continue rosuvastatin. Encouraged to eat healthy, include fresh fruits and vegetables daily and avoid eating fried foods more than once per week. Encouraged to take medications as prescribed. Repeat lipid panel ordered. Assessment & Plan (03/11/2018 8:31 AM OBSTETRIC ANAESTHETIST): Continue statin and follow up with cardiology [...] prescribed. Assessment & Plan (05/27/2022 5:15 PM OBSTETRIC ANAESTHETIST): This is a chronic condition which is [...] ARB Assessment & Plan (03/11/2018 8:31 AM OBSTETRIC ANAESTHETIST): Controlled on current medications. Assessment & Plan [...] (10/05/2017): Added automatically from request for surgery [id number] Cellulitis of left lower extremity 12/28/2016 04/03/2020 [...] goal hba1c is under 7.0 to prevent senior living diabetes complications ( eye , kidney and [...] Farxiga. Assessment & Plan (03/11/2018 8:30 AM OBSTETRIC ANAESTHETIST): A1c is 9.5. Increase Levemir to 34 [...] goal hba1c is under 7.0 to prevent senior living diabetes complications ( eye , kidney and [...] mg daily. Hold Metformin until next Visit Surgical History Surgery Date Site/Laterality Comments ANGIOPLASTY 04/05/1991 - 04/04/1992 Angioplasty KNEE ARTHROSCOPY Arthroscopy knee COLONOSCOPY 04/05/2007 - 04/04/2008 normal CORONARY ARTERY BYPASS GRAFT 04/05/2004 - 04/04/2005 Redo Coronary artery bypass graft (CABG) Redo 2004 LAPAROSCOPIC CHOLECYSTECTOMY 04/05/2020 - 05/05/2020 uncomplicated HYSTERECTOMY 05/06/2018 - 06/02/2018 prolapse uterus LUMBAR LAMINECTOMY 04/05/2003 - 04/04/2004 Back surgery DEXA SCAN 06/22/2018 LBM HM MAMMOGRAPHY 04/05/2017 - 04/04/2018 normal VARICOSE VEIN [...] on file Legal Sex Female 10:56 AM OBSTETRIC ANAESTHETIST Gender Identity Not on file Sexual Orientation Not on file Obstetrics History Last Filed Vital Signs Vital Sign Reading Time Taken Comments Blood Pressure 118/64 08/11/2022 4:01 PM CDT Pulse 65 05/26/2022 2:15 PM OBSTETRIC ANAESTHETIST Temperature 36.3 C (97.3 F) 09/16/2020 8:32 AM CDT Respiratory Rate 15 09/16/2020 9:28 AM CDT Oxygen Saturation 97% 05/26/2022 2:15 PM OBSTETRIC ANAESTHETIST Inhaled Oxygen Concentration - - Weight 81.2 [...] 05/07, 03/10/2018, Additional history exists Influenza Vaccine (Season Ended) 2024 01/25/20 19 Lipid Panel 03/31/2025 03/31/2024, 05/07, 07/15/2017, Additional history exists eGFR 03/31/2025 03/31/2024, [...] Diagnosis Comments EGFR Routine 03/31/2024 10:51 AM OBSTETRIC ANAESTHETIST LIPID PANEL Routine 03/31/2024 10:51 AM OBSTETRIC ANAESTHETIST POCT HEMOGLOBIN A1C Routine 08/11/2022 4 :07 PM CDT Type 2 diabetes mellitus with hyperglycemia, with long-term current use of insulin (HCC) ALBUMIN CREATININE RATIO, URINE Routine 06/01/2022 8:10 AM OBSTETRIC ANAESTHETIST Type 2 diabetes mellitus with hyperglycemia, with long-term current use of insulin (HCC) COLONOSCOPY 09/16/2020 8:22 AM CDT from Last 3 Months or Most Recently Relevant to Health Maintenance Results * eGFR (03/31/2024 10:51 AM OBSTETRIC ANAESTHETIST) eGFR 82 >=60 mL/min/1. 73 m2 Comment: [...] reviewed 2021. Blood 03/31/2024 10:5 1 AM OBSTETRIC ANAESTHETIST 03/31/2024 5:14 PM OBSTETRIC ANAESTHETIST us Notinfile Unknown LAB BLOOD ORDERABLES Final Res ult [facility] [address] Department [place] [address] * Lipid panel (03/31/2024 10:51 AM OBSTETRIC ANAESTHETIST) Cholesterol 177 30 - 199 mg/dL Comment: [...] revised on 2017. Triglycerides 96 <=149 mg/dL [facility] Comment: Interpretive Data Ages < or = [...] revised on 2017. HDL 53 >=40 mg/dL [facility] Comment: Interpretive Data Ages < or = [...] on 2017. LDL, calculated 106 <=129 mg/dL [facility] Comment: Interpretive Data Ages < or = 19 years Acceptable: <110 mg/dL Borderline high: 110-129 mg/dL High: >or= 130 mg/dL Ages > or = 20 years Optimal: <100 mg/dL Near optimal: 100-129 mg/dL Borderline high: 130-159 mg/dL High: >160 mg/dL Calculated using the Taylor LDL-C estimating equation. This equation was implemented on 2023. Prior to this date LDL-C was estimated using the Friedewald equation. Literature References: 1. Expert Panel on Integrated Guidelines for Cardiovascular Health and Risk Reduction in Children and Adolescents. Pediatrics 2011;128:S213 2. NCEP Expert Panel. Circulation 2004;110:227 3. Brandon M et al. DANIEL Cardiol. 2019August 03;5(5):540-548. doi: 10.1001/jamacardio.2020.0013 Current Interpretive Data was last revised on 2023. Non-HDL Cholesterol 124 mg/dL [facility] Comment: Interpretive Data Ages < or = [...] last revised on 2017. Chol/HDL ratio 3 [facility] Blood 03/31/2024 10:5 1 AM OBSTETRIC ANAESTHETIST 03/31/2024 2:12 PM OBSTETRIC ANAESTHETIST us Notinfile Unknown LAB BLOOD ORDERABLES Final Res ult [facility] [address] Department [place] [address] * POCT hemoglobin A1c (08/11/2022 4:07 PM CDT) Hemoglobin A1C, POC 7.2 % Blood 08/11/2022 4:07 PM CDT us Yennifer Cosby NP POINT OF CARE TEST ORDERABLES F inal Result * (ABNORMAL) Albumin Creatinine Ratio, Urine (06/01/2022 8:10 AM OBSTETRIC ANAESTHETIST) Albumin Ur 112.4 mg/L [facility] ([place]) Comment: Interpretive Data No reference range established. Current interpretive data was last revised 2018. Testing performed by: [facility], [address] [place] [address]., [id number] Creatinine Ur 107.2 mg/dL [facility] ([place]) Comment: Interpretive Data No reference range established. Current interpretive data was last revised 2018. Testing performed by: [facility], [address] [place] [address]., [id number] Albumin Creatinine Ratio, Ur 105(H) 1 - 29 mg/g [facility] ([place]) Comment:Testing performed by : [facility], [address] [place] [address]., [id number] Urine 06/01/2022 8:10 AM OBSTETRIC ANAESTHETIST 06/01/2022 11:15 AM OBSTETRIC ANAESTHETIST us Yennifer Cosby FULL STACK WEB DEVELOPER LAB URINE ORDERABLES Final Resu lt [facility] ([place]) 1 [facility] Department [place] [address] * COLONOSCOPY (09/16/2020 8:22 AM CDT) Anatomical Region Laterality Modality Other Narrative Procedure Note Danitza Sawyer MD - 09/16/2020 8:22 AM CDT ENDOSCOPY LAB Patient Name: Ana M Junior Procedure Date: 09/16/2020 8:22 AM Admit Type: Outpatient Room: [facility] Date of : 1945 Instrument Name: [...] ofthe bowel preparation was evaluated using the BBPS([place] Bowel Preparation Scale) with scores of: RightColon [...] Recently Relevant to [place] [address] [facility] MEDICARE [facility] [id number] [place] [address] [facility] [employer] OPEN ACCESS [facility] [id number] MEDICARE Advance Directives For more information, please contact: [phone] * Full Code (Latest Code Status on [...] AM 10/02/2019 5:31 PM Care Teams Business Intelligence Developer Relationship Specialty Start Date End Date Catalina Mejia MD [address] [place] [address] PCP - General Internal Medicine 09/05/19 Josef Groves MD [address] [place] [address] Consulting Physician General Surgery 04/08/20
--- OUTSIDE RECORDS SUMMARY | 2024-07-18 13:15 | XMS_ITS | Encounter Summary ---
Author Organization [facility] Address [address] [place] [address] Care Team Providers Care Master Cosmetologist Name Role Phone Unavailable Primary Care Provider Unavailabl e Encounter Details Date Type Department Care Team (Late st Contact Info) Description 04/16/[address] [facility] Cardiovas and Thor Surg at [facility] Heart [address] [address] Richard Cotto, [place] NO ADDRESS ON FILE Social History Tobacco Use Types Packs/Day Years Used Date Smoking Tobacco: Never Assessed Comments Unknown Sex and Gender Information Value Date Recorded Sex Assigned at Not on file Legal Sex Female 5:02 AM PACKAGE CHECKER Gender Identity Not on file Sexual Orientation Not on file documented as of this encounter Plan of Treatment Not on file documented as of this encounter Visit Diagnoses Not on filedocumented in this encounter
--- OUTSIDE RECORDS SUMMARY | 2024-07-18 13:15 | XMS_ITS | Encounter Summary ---
Author Organization [employer] Address [address] [place] [address] Care Team Providers Care Sap Pi Developer Name Role Phone Unavailable Primary Care Provider Unavailabl e Encounter Details Date Type Department Care Team (Late st Contact Info) Description 04/18/2005 Outpatient Historical [facility] [place] [address] Bladimir Monahan MD [address] [place] [address] Social History Tobacco Use Types Packs/Day Years Used Date Smoking Tobacco: Never Assessed Comments Unknown Sex and Gender Information Value Date Recorded Sex Assigned at Not on file Legal Sex Female 5:02 AM QUARRYMAN Gender Identity Not on file Sexual Orientation Not on file documented as of this encounter Plan of Treatment Not on file documented as of this encounter Visit Diagnoses Not on filedocumented in this encounter
--- OUTSIDE RECORDS SUMMARY | 2024-07-18 13:15 | XMS_ITS | Clinical Summary ---
Author Organization [facility] Address [address] [place] [address] Care Team Providers Care Windows Security Analyst Name Role Phone Unavailable Primary Care Provider Unavailabl e Social History Tobacco Use Types Packs/Day Years Used Date Smoking Tobacco: Never Assessed Comments Unknown Sex and Gender Information Value Date Recorded Sex Assigned at Not on file Legal Sex Female 5:02 AM MASTER AUTOMOTIVE TECHNICIAN Gender Identity Not on file Sexual Orientation Not on file Plan of Treatment Health Maintenance Due Date Last Done Comments DTAP/TDAP/TD VACCINES (1 - Tdap) 1963 PNEUMOCOCCAL VACCINE 50+ YEARS (1 of 1 - PCV) 03/28/19 94 ZOSTER VACCINE (1 of 2) 1994 OSTEOPOROSIS SCREENING 2009 RSV VACCINE (60+ or ) (1 - 1-dose 75+ series) 2019 INFLUENZA VACCINE (#1) 2023
--- OUTSIDE RECORDS SUMMARY | 2024-07-18 13:15 | XMS_ITS | Encounter Summary ---
Author Organization [facility] Address [address] [place] [address] Care Team Providers Care Case Assembler Name Role Phone Unavailable Primary Care Provider Unavailabl e Encounter Details Date Type Department Care Team (Late st Contact Info) Description 05/20/2005 Outpatient Historical [facility]3] Cardiovas and Thor Surg at [facility] [address] [address] Max Jhaveri MD [address] [place] [phone] Social History Tobacco Use Types Packs/Day Years Used Date Smoking Tobacco: Never Assessed Comments Unknown Sex and Gender Information Value Date Recorded Sex Assigned at Not on file Legal Sex Female 5:02 AM LABORATORY CHEMIST Gender Identity Not on file Sexual Orientation Not on file documented as of this encounter Plan of Treatment Not on file documented as of this encounter Visit Diagnoses Not on filedocumented in this encounter
--- OUTSIDE RECORDS SUMMARY | 2024-07-18 13:15 | XMS_ITS | Encounter Summary ---
Author Organization [facility] Address [address] [place] [address] Care Team Providers Care Director Of Clinical Trials Name Role Phone Unavailable Primary Care Provider Unavailabl e Encounter Details Date Type Department Care Team (Latest Contact Info) Description 05/20/2005 Outpatient Historical [facility] Max Chavez MD [address] [address] PULMONARY COLLAPSE (Primary Dx) Social History Tobacco Use Types Packs/Day Years Used Date Smoking Tobacco: Never Assessed Comments Unknown Sex and Gender Information Value Date Recorded Sex Assigned at Not on file Legal Sex Female 5:02 AM RESOURCE DIRECTOR Gender Identity Not on file Sexual Orientation Not on file documented as of this encounter Plan of Treatment Not on file documented as of this encounter Visit Diagnoses Diagnosis Pulmonary collapse- Primary documented in this encounter
--- OUTSIDE RECORDS SUMMARY | 2024-07-18 13:16 | XMS_ITS | Data Portability ---
Author Organization [place] [email or web address] [facility], Main Office Address [address] [place] [address] Care Team Providers Care Manager Eligibility Name Role Phone SAM HIGGINS Primary Care [...] procedure, administer ed by provider 2022 023 [email or web address] In-Office Order, Internal Use Only DO Not Attach Compendium DO Not Attach Compendium, Do Not Delete/merge, [id number] 15:33:20 injection/ aspiration joint/burs a (PROC) - in office procedure, administer ed by provider 2022 023 [email or web address] In-Office Order, Internal Use Only DO Not Attach Compendium DO Not Attach Compendium, Do Not Delete/merge, [id number] 3 09:09:50 Surgeries None recorded. Imaging XR, hand, 3 or more view 2022 023 [email or web address] [facility] [place], [address], [place], [address], 3 07:31:14 XR, elbow 2022 023 [email or web address] [facility] [place], [address], [place], [address], 3 15:40:12 XR, hand, 3 or more view 2022 023 [facility] [place], [address], [place], [address], 3 09:39:43 Medication Orders Mobic 15 mg tablet 2022 023 [email or web address] [facility] [address] [place], [address], 3 20:07:14 Kenalog 10 mg/mL suspension for injection [address] [facility] [address] [place], [address], 3 15:33:24 ropivacain e (PF) 5 mg/mL (0.5 %) injection solution [address] [facility] [address] [place], [address], 3 15:33:24 Kenalog 10 mg/mL suspension for injection [address] [facility] [address] [facility] [place], [address], 09:09:52 ropivacain e (PF) 5 mg/mL (0.5 %) injection solution 2022 023 [email or web address] [facility] [address], [address], [place], [address], 09:23:07 Patient TargetsNo targets recorded. Patient InstructionsNo instructions recorded. Reason for Referral None Reported. Results Created Date Observation Date Name Description Value Unit Range Abnormal Flag Note LastModifiedBy Organization Detail LastModifiedTime 08/05/19 23 XR, hand, 3 or more view No observ ation record ed. [email or web address] [facility] [place] [address], [place], [address], 08/04/2022 09:33:15 09/24/19 23 XR, elbow No observ ation record ed. [email or web address] [facility] [place] [address], [place], [address], 09/23/2022 15:35:19 03/10/20 23 XR, hand, 3 or more view No observ ation record ed. [email or web address] [facility] [place] [address], [place], [address], 03/10/2023 15:50:06 Result Notes None recorded. Problems Name Problem SNOMED Code Status Onset Date Resolution Date Notes Provider Name and Address Organization Details Recorded Time Acquired trigger finger 7798243 Active Not Available [facility] 3 13:49:59 Localized, primary osteoarthr itis of the hand 974236537 Active Not Available [facility] 3 13:49:59 Closed Colles' fracture 277235235 Active Not Available [facility] 3 13:49:59 Sprain of elbow and forearm 506118111 Active Not Available [facility] 3 13:49:59 Osteoarthr itis 782148789 Active Not Available [facility] 3 13:49:59 Fracture of forearm 15487977 Active Not Available [facility] 3 13:49:59 Pain in elbow 30986966 Active Not Available [facility] 3 13:49:59 Pain of left hand 0021237602139 03 Active 2022 TENNILLE Andrews, [facility] 3 08:42:23 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 8119880595977 9102 Active 2022 CHERELLE Trinh [address], [facility] [address], [place], [address] , [facility] 3 09:36:58 Pain of left elbow joint 1117859896062 9104 Active 2022 TENNILLE Snow, [facility] 3 14:35:08 Medial epicondyli tis of left elbow joint 2473321668263 07 Active 2022 Michael Martinez MD [address], [place], [address] , [facility] 3 15:35:32 Pain in right hand 6014108447050 09 Active 2022 TENNILLE Andrews, [facility] 3 15:49:52 Problem Notes None recorded. Procedures Surgical History None recorded. Imaging Results Imaging Date Name Status LastModified by [facility] Details LastModified Time 08/04/2022 XR, hand, 3 or more view completed [email or web address] [facility] [place] [address], [place], [address], 08/04/2022 09:33:15 09/23/2022 XR, elbow completed [email or web address] [facility] [place] [address], [place], [address], 09/23/2022 15:35:19 03/10/2023 XR, hand, 3 or more view completed [email or web address] [facility] [place] [address], [place], [address], 03/10/2023 15:50:06 Procedure Notes None recorded. Medical [...] suspension for injection IN OFFICE 2022 active [facility]: 0003- 0494- 20 Not Available Not Available [...] %) injection solution IN OFFICE 2022 active [facility] 86552 -064- 01 Not Available Not Available Not [...] Available No t Available [employer]a 2 Hayti USE DIRECTED active Not Available Not Available No t Available Vitals Date Recorded Body mass index (BMI) Body height Pain severity - 0-10 verbal numeric rating [Score] - Reported Body weight Provider Name and Address Organization Details Last Updated DateTime 01/27/2022 21.2 kg/m2 193.04 cm 10 43092.07 g Not Available [facility] 06/03/2022 13:49:51 Date Recorded Body height Body mass index (BMI) Body weight Pain severity - 0-10 verbal numeric rating [Score] - Reported Provider Name and Address Organization Details Last Updated DateTime 08/04/2022 193.04 cm 20.9 kg/m2 56923.89 g 10 Kira Null [facility] 08/04/2022 08:42:01 Date Recorded Body height Provider Name an d Address Organization Details Last Updated DateTime 09/23/2022 193.04 cm Adalgisa Dominguez [facility] 09/23/2022 14:34:21 Date Recorded Body height Body mass index (BMI) Body weight Pain severity - 0-10 verbal numeric rating [Score] - Reported Provider Name and Address Organization Details Last Updated DateTime 03/10/2023 193.04 cm 20 kg/m2 14372.15 g 0 Kira Null [facility] [employer] [facility] 03/10/2023 15:49:09 Social History Question Answer Notes LastModified by Organizat ion Details LastModified Time Tobacco Smoking Status Unknown If Ever Smoked Not Available [facility] 06/03/2022 13:49:39 What Is Your Level Of Alcohol Consumption? None [id number] Information not available 06/03/2022 What Was The Date Of Your Most Recent Tobacco Screening? 01/27/2022 [id number] Information not available 06/03/2022 Sex: Unknown Functional Status None recorded. Mental Status None recorded. Family History Nothing Reported. Medical History Condition Response ARTHRITIS Y DIABETES, TYPE Y Gynecological HistoryNo gynecological history recorded. Obstetrics History GPAL:G 0 P 0 0 0 0 Past Encounters Encounter ID Performer Location Encounter Start Date Encounter Closed Date Diagnosis/Indication Diagnosis SNOMED-CT Code Diagnosis ICD10 Code Diagnosis Note [id number] [facility] [place] [address] [place] [address] 01/27/2022 00:00:00 01/27/2022 12:38:48 [id number] CHERELLE Trinh [facility] [place] [address] [place] [address] 08/04/2022 08:38:44 08/04/2022 09:39:43 Pain of left hand 1625740273 97389 M79.642 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 1174165820 4032989 M19.042 [id number] Michael Martinez MD [facility] [place] [address] [place] [address] 09/23/2022 14:29:46 09/23/2022 15:40:12 Pain of left elbow joint 6505096679 3357437 M25.522 Medial epi condylitis of left elbow joint 5738986241 51490 M77.02 discussed the treatment options today. We will have her work on a stretching program watch her heavy repetitive lifting. We did a 1 time injection with 2 cc xylocaine 2 cc Kenalog over the medial epicondyle . We will see her back if no improvemen t with the 1 time injection and the stretching program [id number] Ricky Comer MD [facility] [place] 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 5470640 M65.30 Medial epi condylitis of left elbow joint 8241094644 29577 M77.02 Health Concerns Section Related Observation LastModified by Organization Detai ls LastModified Time None Recorded Concern Status LastModified by Organization Details LastModified Time None Recorded Advance Directives Directive None Recorded Payers Encounter Date Sequence Insurance Name Policy Number Policy Ivey Covered Member ID Ivey Member ID Guarantor Name 08/04/2022 1 [employer] - OPEN ACCESS Ana M Childress [id number] ARFITA Childress 09/23/2022 1 [employer] - OPEN ACCESS Ana M Weber Childress [id number] OI Ana M Weber Childress 03/10/2023 1 [employer] - OPEN ACCESS Ana M Weber Childress [id number] OI Ana M Weber McNeil Notes Date [...] this visit. CHERELLE Trinh [address], [facility] [address], [place], [address], [employer] 08/04/2022 09:38:14 09/23/2022 text/html patient comes in [...] Martinez MD [address], [address], [place], [address], [employer] 09/23/2022 15:36:04 OBGyn Episode No OBEpisode recorded.
--- OUTSIDE RECORDS SUMMARY | 2024-07-18 13:16 | XMS_ITS | Encounter Summary ---
Author Organization [employer] Address [address] [place] [address] Care Team Providers Care Mysql Dba Name Role Phone Unavailable Primary Care Provider Unavailabl e Encounter Details Date Type Department Care Team (Latest Contact Info) Description 04/15/2005 Inpatient Historical HIS CARD ASPARAGUS BUNCHER Max Jhaveri MD [address] [facility] [address] [place] [address] Cirilo Buenrostro MD [address] [facility] [address] [place] [id number] CORON ATHEROSCL [place] CORON VESSEL (Primary Dx) Social History Tobacco Use Types Packs/Day Years Used Date Smoking Tobacco: Never Assessed Comments Unknown Sex and Gender Information Value Date Recorded Sex Assigned at Not on file Legal Sex Female 5:02 AM HAND CARVER Gender Identity Not on file Sexual Orientation Not on file documented as of this encounter Plan of Treatment Not on file documented as of this encounter Procedures Procedure Name Priority Date/Time Associated Diagnosis Comments POC GLUCOSE Routine 04/19/2005 5:35 AM HAND CARVER POC GLUCOSE Routine 04/18/2005 9:01 PM HAND CARVER POC GLUCOSE Routine 04/18/2005 4:37 PM HAND CARVER POC GLUCOSE Routine 04/18/2005 11:10 AM HAND CARVER POC GLUCOSE Routine 04/18/2005 5:32 AM HAND CARVER CBC WITH DIFFERENTIAL Routine 04/18/2005 5:00 AM HAND CARVER CBC WITH DIFFERENTIAL Routine 04/18/2005 5:00 AM HAND CARVER BASIC METABOLIC PANEL Routine 04/18/2005 5:00 AM HAND CARVER POC GLUCOSE Routine 04/17/2005 9:10 PM HAND CARVER CVR ONLY, CKMB/CK Routine 04/17/2005 7:3 9 PM HAND CARVER POC GLUCOSE Routine 04/17/2005 4:50 PM HAND CARVER POC GLUCOSE Routine 04/17/2005 11:06 AM HAND CARVER POC GLUCOSE Routine 04/17/2005 6:13 AM HAND CARVER POC GLUCOSE Routine 04/17/2005 4:45 AM HAND CARVER PT AND APTT Routine 04/17/2005 4:23 AM HAND CARVER CBC WITH DIFFERENTIAL Routine 04/17/2005 4:23 AM HAND CARVER CBC WITH DIFFERENTIAL Routine 04/17/2005 4:23 AM HAND CARVER MAGNESIUM LEVEL Routine 04/17/2005 4:23 AM HAND CARVER COMPREHENSIVE METABOLIC PANEL Routine 04/17/2005 4:23 AM HAND CARVER POC GLUCOSE Routine 04/17/2005 1:59 AM HAND CARVER CVR ONLY, CKMB/CK Routine 04/17/2005 1:0 0 AM HAND CARVER HEMOGLOBIN AND HEMATOCRIT Routine 04/17/2005 1:00 AM HAND CARVER POTASSIUM LEVEL Routine 04/17/2005 1:00 AM HAND CARVER POC GLUCOSE Routine 04/17/2005 12:53 AM HAND CARVER POC GLUCOSE Routine 04/16/2005 11:21 PM HAND CARVER POC GLUCOSE Routine 04/16/2005 10:17 PM HAND CARVER POC GLUCOSE Routine 04/16/2005 9:29 PM HAND CARVER POC, BLOOD GASES Routine 04/16/2005 8:45 PM HAND CARVER POC GLUCOSE Routine 04/16/2005 8:26 PM HAND CARVER POTASSIUM LEVEL Routine 04/16/2005 8:00 PM HAND CARVER MAGNESIUM LEVEL Routine 04/16/2005 8:00 PM HAND CARVER POC GLUCOSE Routine 04/16/2005 7:51 PM HAND CARVER POC GLUCOSE Routine 04/16/2005 6:31 PM HAND CARVER POC GLUCOSE Routine 04/16/2005 5:36 PM HAND CARVER POC GLUCOSE Routine 04/16/2005 4:19 PM HAND CARVER POC, BLOOD GASES Routine 04/16/2005 4:05 PM HAND CARVER CVR ONLY, CKMB/CK Routine 04/16/2005 3:5 7 PM HAND CARVER PT AND APTT Routine 04/16/2005 3:57 PM HAND CARVER CBC WITH DIFFERENTIAL Routine 04/16/2005 3:57 PM HAND CARVER CBC WITH DIFFERENTIAL Routine 04/16/2005 3:57 PM HAND CARVER MAGNESIUM LEVEL Routine 04/16/2005 3:57 PM HAND CARVER BASIC METABOLIC PANEL Routine 04/16/2005 3:57 PM HAND CARVER LIPID PANEL Routine 04/16/2005 6:10 AM HAND CARVER URINALYSIS W/REFLEX MICROSCOPIC Routine 04/15/2005 4:23 PM HAND CARVER BASIC METABOLIC PANEL PLUS Routine 04/15/2005 12:40 PM HAND CARVER PT AND APTT Routine 04/15/2005 12:40 PM HAND CARVER CBC WITH DIFFERENTIAL Routine 04/15/2005 12:40 PM HAND CARVER CBC WITH DIFFERENTIAL Routine 04/15/2005 12:40 PM HAND CARVER BASIC METABOLIC PANEL Routine 04/15/2005 12:40 PM HAND CARVER documented in this encounter Results * (ABNORMAL) POC GLUCOSE (04/19/2005 5:35 AM HAND CARVER) COMMENT, GLU POC Notified RN INTERFACE SYSTEM GLUCOSE POC 142(H) 65 - 109 mg/dL INTERFACE SYSTEM 04/19/2005 5:35 AM HAND CARVER Cirilo Buenrostro MD POINT OF CARE TESTING Fin al Result Performing Organization Address [facility] de Phone Number INTERFACE SYSTEM Refer to clinic/hospital department * (ABNORMAL) POC GLUCOSE (04/18/2005 9:01 PM HAND CARVER) COMMENT, GLU POC Notified RN INTERFACE SYSTEM GLUCOSE POC 221(H) 65 - 109 mg/dL INTERFACE SYSTEM 04/18/2005 9:01 PM HAND CARVER Cirilo Buenrostro MD POINT OF CARE TESTING Fin al Result Performing Organization Address [facility] de Phone Number INTERFACE SYSTEM Refer to clinic/hospital department * (ABNORMAL) POC GLUCOSE (04/18/2005 4:37 PM HAND CARVER) GLUCOSE POC 170(H) 65 - 109 mg/dL INTERFACE SYSTEM 04/18/2005 4:37 PM HAND CARVER Cirilo Buenrostro MD POINT OF CARE TESTING Fin al Result Performing Organization Address [facility] de Phone Number INTERFACE SYSTEM Refer to clinic/hospital department * (ABNORMAL) POC GLUCOSE (04/18/2005 11:10 AM HAND CARVER) COMMENT, GLU POC Notified RN INTERFACE SYSTEM GLUCOSE POC 220(H) 65 - 109 mg/dL INTERFACE SYSTEM 04/18/2005 11:1 0 AM HAND CARVER Cirilo Buenrostro MD POINT OF CARE TESTING Fin al Result Performing Organization Address [facility] Phone Number INTERFACE SYSTEM Refer to clinic/hospital department * (ABNORMAL) POC GLUCOSE (04/18/2005 5:32 AM HAND CARVER) GLUCOSE POC 193(H) 65 - 109 mg/dL INTERFACE SYSTEM 04/18/2005 5:32 AM HAND CARVER Cirilo Buenrostro MD POINT OF CARE TESTING Fin al Result Performing Organization Address [facility] Phone Number INTERFACE SYSTEM Refer to clinic/hospital department * (ABNORMAL) CBC WITH DIFFERENTIAL (04/18/2005 5:00 AM HAND CARVER) NEUTROPHIL ABSOLUTE 5.67 1.90 - 7.00 K/uL [...] Normal INTER FACE SYSTEM 04/18/2005 5:00 AM HAND CARVER Cirilo Buenrostro MD HEMATOLOGY ORDERABLES Fin al Result Performing Organization Address [facility] Phone Number INTERFACE SYSTEM Refer to clinic/hospital department * (ABNORMAL) CBC WITH DIFFERENTIAL (04/18/2005 5:00 AM HAND CARVER) WBC 7.0 4.0 - 9.8 K/uL INTERFACE [...] 12.4 fL INTERFACE SYSTEM 04/18/2005 5:00 AM HAND CARVER Cirilo Buenrostro MD HEMATOLOGY ORDERABLES Fin al Result Performing Organization Address [facility] Phone Number INTERFACE SYSTEM Refer to clinic/hospital department * (ABNORMAL) BASIC METABOLIC PANEL (04/18/2005 5:00 AM HAND CARVER) GLUCOSE 186(H) 65 - 109 mg/dL INTERFACE [...] 30 mmol/L INTERFACE SYSTEM 04/18/2005 5:00 AM HAND CARVER Cirilo Buenrostro MD CHEMISTRY ORDERABLES Sommer l Result Performing Organization Address [facility] Co de Phone Number INTERFACE SYSTEM Refer to clinic/hospital department * (ABNORMAL) POC GLUCOSE (04/17/2005 9:10 PM HAND CARVER) GLUCOSE POC 261(H) 65 - 109 mg/dL INTERFACE SYSTEM 04/17/2005 9:10 PM HAND CARVER Cirilo Buenrostro MD POINT OF CARE TESTING Fin al Result Performing Organization Address [facility] de Phone Number INTERFACE SYSTEM Refer to clinic/hospital department * (ABNORMAL) CVR ONLY, CKMB/CK (04/17/2005 7:39 PM HAND CARVER) CKMB 7.5(AA) <=3.8 ng/mL INTERFACE SYSTEM Comment:Persistent abnormal result CKMB INTERP See Below INTERFAC E SYSTEM Comment:Elevated CKMB,consis tent with Myocardial Injury CK 339(H) 10 - 145 U/L INTERFACE SYSTEM CARDIAC RELATIVE INDEX 2.2 <=4.0 INTERFACE SYSTEM 04/17/2005 7:39 PM HAND CARVER Max Jhaveri MD CHEMISTRY ORDERABLES Final Re sult Performing Organization Address [facility] Phone Number INTERFACE SYSTEM Refer to clinic/hospital department * (ABNORMAL) POC GLUCOSE (04/17/2005 4:50 PM HAND CARVER) GLUCOSE POC 228(H) 65 - 109 mg/dL INTERFACE SYSTEM 04/17/2005 4:50 PM HAND CARVER Cirilo Buenrostro MD POINT OF CARE TESTING Fin al Result Performing Organization Address [facility] de Phone Number INTERFACE SYSTEM Refer to clinic/hospital department * (ABNORMAL) POC GLUCOSE (04/17/2005 11:06 AM HAND CARVER) GLUCOSE POC 141(H) 65 - 109 mg/dL INTERFACE SYSTEM 04/17/2005 11:0 6 AM HAND CARVER Cirilo Buenrostro MD POINT OF CARE TESTING Fin al Result Performing Organization Address [facility] de Phone Number INTERFACE SYSTEM Refer to clinic/hospital department * (ABNORMAL) POC GLUCOSE (04/17/2005 6:13 AM HAND CARVER) GLUCOSE POC 115(H) 65 - 109 mg/dL INTERFACE SYSTEM 04/17/2005 6:13 AM HAND CARVER Cirilo Buenrostro MD POINT OF CARE TESTING Fin al Result Performing Organization Address [facility] de Phone Number INTERFACE SYSTEM Refer to clinic/hospital department * POC GLUCOSE (04/17/2005 4:45 AM HAND CARVER) GLUCOSE POC 99 65 - 109 mg/dL INTERFACE SYSTEM 04/17/2005 4:45 AM HAND CARVER Cirilo Buenrostro MD POINT OF CARE TESTING Fin al Result Performing Organization Address [facility] Phone Number INTERFACE SYSTEM Refer to clinic/hospital department * (ABNORMAL) CBC WITH DIFFERENTIAL (04/17/2005 4:23 AM HAND CARVER) NEUTROPHILS 83(H) 45 - 70 % INTERFAC [...] 0.20 K/uL INTERFACE SYSTEM 04/17/2005 4:23 AM HAND CARVER Max Jhaveri MD HEMATOLOGY ORDERABLES Final R esult Performing Organization Address [facility] de Phone Number INTERFACE SYSTEM Refer to clinic/hospital department * (ABNORMAL) CBC WITH DIFFERENTIAL (04/17/2005 4:23 AM HAND CARVER) WBC 8.5 4.0 - 9.8 K/uL INTERFACE [...] 12.4 fL INTERFACE SYSTEM 04/17/2005 4:23 AM HAND CARVER Max Jhaveri MD HEMATOLOGY ORDERABLES Final R esult Performing Organization Address [facility] Phone Number INTERFACE SYSTEM Refer to clinic/hospital department * MAGNESIUM LEVEL (04/17/2005 4:23 AM HAND CARVER) MAGNESIUM 1.8 1.5 - 2.5 mg/dL INTERFACE SYSTEM 04/17/2005 4:23 AM HAND CARVER Max Jhaveri MD CHEMISTRY ORDERABLES Final Re sult Performing Organization Address [facility] Phone Number INTERFACE SYSTEM Refer to clinic/hospital department * (ABNORMAL) PT AND APTT (04/17/2005 4:23 AM HAND CARVER) PROTIME 16.4(H) 12.7 - 15.1 Seconds INTERFACE SYSTEM INR 1.2(H) 0.9 - 1.1 INTERFACE SYSTEM Comment: INR Therapeutic Range: Adult: 2.0 - 3.0 for pulmonary embolism or prophylaxis against venous thrombosis or systemic embolization. 2.0 - 3.0 for patients with tissue heart valves. 2.5 - 3.5 for patients with mechanical heart valves or post RI. Pediatric (12 years and under): 1.5 - [...] range for unfractionated heparin 04/17/2005 4:23 AM HAND CARVER Max Jhaveri MD HEMATOLOGY ORDERABLES Final R esult Performing Organization Address [facility]/ZIP Co de Phone Number INTERFACE SYSTEM Refer to clinic/hospital department * (ABNORMAL) COMPREHENSIVE METABOLIC PANEL (04/17/2005 4:23 AM HAND CARVER) GLUCOSE 101 65 - 109 mg/dL INTERFACE [...] 30 mmol/L INTERFACE SYSTEM 04/17/2005 4:23 AM HAND CARVER Max Jhaveri MD CHEMISTRY ORDERABLES Final Re sult Performing Organization Address [facility]/ZIP Co de Phone Number INTERFACE SYSTEM Refer to clinic/hospital department * (ABNORMAL) POC GLUCOSE (04/17/2005 1:59 AM HAND CARVER) GLUCOSE POC 134(H) 65 - 109 mg/dL INTERFACE SYSTEM 04/17/2005 1:59 AM HAND CARVER Cirilo Buenrostro MD POINT OF CARE TESTING Fin al Result Performing Organization Address [facility] Phone Number INTERFACE SYSTEM Refer to clinic/hospital department * (ABNORMAL) HEMOGLOBIN AND HEMATOCRIT (04/17/2005 1:00 AM HAND CARVER) HEMOGLOBIN 11.8 11.8 - 14.8 g/dL INTERFACE SYSTEM HEMATOCRIT 35.3(L) 35.5 - 44.0 % INTERFACE SYSTEM 04/17/2005 1:00 AM HAND CARVER Max Jhaveri MD HEMATOLOGY ORDERABLES Final R esult Performing Organization Address [facility] Phone Number INTERFACE SYSTEM Refer to clinic/hospital department * POTASSIUM LEVEL (04/17/2005 1:00 AM HAND CARVER) Pathologist [facility] POTASSIUM 4.1 3.5 - 4.9 mmol/L INTERFACE SYSTEM 04/17/2005 1:00 AM HAND CARVER Max Jhaveri MD CHEMISTRY ORDERABLES Final Re sult Performing Organization Address [facility] Phone Number INTERFACE SYSTEM Refer to clinic/hospital department * (ABNORMAL) CVR ONLY, CKMB/CK (04/17/2005 1:00 AM HAND CARVER) CKMB 22.5(AA) <=3.8 ng/mL INTERFACE SYSTEM Comment:Persistent abnormal result CKMB INTERP See Below INTERFAC E SYSTEM Comment:Elevated CKMB,consis tent with Myocardial Injury CK 325(H) 10 - 145 U/L INTERFACE SYSTEM CARDIAC RELATIVE INDEX 6.9(H) <=4.0 INTERFACE SYSTEM 04/17/2005 1:00 AM HAND CARVER Max Jhaveri MD CHEMISTRY ORDERABLES Final Re sult Performing Organization Address [facility]/ZIP Co de Phone Number INTERFACE SYSTEM Refer to clinic/hospital department * (ABNORMAL) POC GLUCOSE (04/17/2005 12:53 AM HAND CARVER) GLUCOSE POC 145(H) 65 - 109 mg/dL INTERFACE SYSTEM 04/17/2005 12:5 3 AM HAND CARVER Cirilo Buenrostro MD POINT OF CARE TESTING Fin al Result Performing Organization Address [facility] de Phone Number INTERFACE SYSTEM Refer to clinic/hospital department * (ABNORMAL) POC GLUCOSE (04/16/2005 11:21 PM HAND CARVER) GLUCOSE POC 160(H) 65 - 109 mg/dL INTERFACE SYSTEM 04/16/2005 11:2 1 PM HAND CARVER Cirilo Buenrostro MD POINT OF CARE TESTING Fin al Result Performing Organization Address [facility] de Phone Number INTERFACE SYSTEM Refer to clinic/hospital department * (ABNORMAL) POC GLUCOSE (04/16/2005 10:17 PM HAND CARVER) GLUCOSE POC 159(H) 65 - 109 mg/dL INTERFACE SYSTEM 04/16/2005 10:1 7 PM HAND CARVER Cirilo Buenrostro MD POINT OF CARE TESTING Fin al Result Performing Organization Address [facility] de Phone Number INTERFACE SYSTEM Refer to clinic/hospital department * (ABNORMAL) POC GLUCOSE (04/16/2005 9:29 PM HAND CARVER) GLUCOSE POC 178(H) 65 - 109 mg/dL INTERFACE SYSTEM 04/16/2005 9:29 PM HAND CARVER Cirilo Buenrostro MD POINT OF CARE TESTING Fin al Result Performing Organization Address [facility] de Phone Number INTERFACE SYSTEM Refer to clinic/hospital department * (ABNORMAL) POC RT, BLOOD GASES (04/16/2005 8:45 PM HAND CARVER) PH ARTERIAL 7.40 7.35 - 7.45 INTERFACE [...] RN AWARE INTERFACE SYSTEM 04/16/2005 8:45 PM HAND CARVER Cirilo Buenrostro MD CHEMISTRY ORDERABLES Sommer l Result Performing Organization Address [facility] Co de Phone Number INTERFACE SYSTEM Refer to clinic/hospital department * (ABNORMAL) POC GLUCOSE (04/16/2005 8:26 PM HAND CARVER) GLUCOSE POC 190(H) 65 - 109 mg/dL INTERFACE SYSTEM 04/16/2005 8:26 PM HAND CARVER Cirilo Buenrostro MD POINT OF CARE TESTING Fin al Result Performing Organization Address [facility] de Phone Number INTERFACE SYSTEM Refer to clinic/hospital department * POTASSIUM LEVEL (04/16/2005 8:00 PM HAND CARVER) POTASSIUM 3.8 3.5 - 4.9 mmol/L INTERFACE SYSTEM Comment: Testing was performed on Serum. Specimen of choice is [place] Heparinized Plasma. Serum Potassium Reference Range: 5 years - 150 years 3.5 - 5.0 mmol/L 1 year - 5 years 3.4 - 4.7 mmol/L 15 days - 1 year 4.1 - 5.3 mmol/L 0 days - 15 days 3.7 - 5.9 mmol/L 04/16/2005 8:00 PM HAND CARVER Max Jhaveri MD CHEMISTRY ORDERABLES Final Re sult Performing Organization Address [facility] Phone Number INTERFACE SYSTEM Refer to clinic/hospital department * MAGNESIUM LEVEL (04/16/2005 8:00 PM HAND CARVER) MAGNESIUM 2.1 1.5 - 2.5 mg/dL INTERFACE SYSTEM 04/16/2005 8:00 PM HAND CARVER Max Jhaveri MD CHEMISTRY ORDERABLES Final Re sult Performing Organization Address [facility] Phone Number INTERFACE SYSTEM Refer to clinic/hospital department * (ABNORMAL) POC GLUCOSE (04/16/2005 7:51 PM HAND CARVER) GLUCOSE POC 186(H) 65 - 109 mg/dL INTERFACE SYSTEM 04/16/2005 7:51 PM HAND CARVER Cirilo Buenrostro MD POINT OF CARE TESTING Fin al Result Performing Organization Address [facility] Phone Number INTERFACE SYSTEM Refer to clinic/hospital department * (ABNORMAL) POC GLUCOSE (04/16/2005 6:31 PM HAND CARVER) GLUCOSE POC 167(H) 65 - 109 mg/dL INTERFACE SYSTEM 04/16/2005 6:31 PM HAND CARVER Cirilo Buenrostro MD POINT OF CARE TESTING Fin al Result Performing Organization Address [facility] de Phone Number INTERFACE SYSTEM Refer to clinic/hospital department * (ABNORMAL) POC GLUCOSE (04/16/2005 5:36 PM HAND CARVER) GLUCOSE POC 148(H) 65 - 109 mg/dL INTERFACE SYSTEM 04/16/2005 5:36 PM HAND CARVER Cirilo Buenrostro MD POINT OF CARE TESTING Fin al Result Performing Organization Address [facility] de Phone Number INTERFACE SYSTEM Refer to clinic/hospital department * (ABNORMAL) POC GLUCOSE (04/16/2005 4:19 PM HAND CARVER) GLUCOSE POC 143(H) 65 - 109 mg/dL INTERFACE SYSTEM 04/16/2005 4:19 PM HAND CARVER Cirilo Buenrostro MD POINT OF CARE TESTING Fin al Result Performing Organization Address [facility] de Phone Number INTERFACE SYSTEM Refer to clinic/hospital department * (ABNORMAL) POC RT, BLOOD GASES (04/16/2005 4:05 PM HAND CARVER) PH ARTERIAL 7.44 7.35 - 7.45 INTERFACE [...] RN NOTIFIED INTERFACE SYSTEM 04/16/2005 4:05 PM HAND CARVER Cirilo Buenrostro MD CHEMISTRY ORDERABLES Sommer l Result Performing Organization Address [facility] Co de Phone Number INTERFACE SYSTEM Refer to clinic/hospital department * (ABNORMAL) CVR ONLY, CKMB/CK (04/16/2005 3:57 PM HAND CARVER) CKMB 28.2(AA) <=3.8 ng/mL INTERFACE SYSTEM Comment:Results called to ba rb at 04/16/2005 4:50 PM and read back verified. CKMB INTERP See Below INTERFAC E SYSTEM Comment:Elevated CKMB,consis tent with Myocardial Injury. CK 234(H) 10 - 145 U/L INTERFACE SYSTEM CARDIAC RELATIVE INDEX 12.0(H) <=4.0 INTERFACE SYSTEM 04/16/2005 3:57 PM HAND CARVER Max Jhaveri MD CHEMISTRY ORDERABLES Final Re sult Performing Organization Address [facility] Phone Number INTERFACE SYSTEM Refer to clinic/hospital department * (ABNORMAL) CBC WITH DIFFERENTIAL (04/16/2005 3:57 PM HAND CARVER) NEUTROPHILS 77(H) 45 - 70 % INTERFAC [...] 0.20 K/uL INTERFACE SYSTEM 04/16/2005 3:57 PM HAND CARVER Max Jhaveri MD HEMATOLOGY ORDERABLES Final R esult Performing Organization Address [facility] de Phone Number INTERFACE SYSTEM Refer to clinic/hospital department * (ABNORMAL) CBC WITH DIFFERENTIAL (04/16/2005 3:57 PM HAND CARVER) WBC 8.3 4.0 - 9.8 K/uL INTERFACE [...] 12.4 fL INTERFACE SYSTEM 04/16/2005 3:57 PM HAND CARVER Max Jhaveri MD HEMATOLOGY ORDERABLES Final R esult Performing Organization Address [facility] Phone Number INTERFACE SYSTEM Refer to clinic/hospital department * (ABNORMAL) PT AND APTT (04/16/2005 3:57 PM HAND CARVER) PROTIME 17.9(H) 12.7 - 15.1 Seconds INTERFACE SYSTEM INR 1.4(H) 0.9 - 1.1 INTERFACE SYSTEM Comment: INR Therapeutic Range: Adult: 2.0 - 3.0 for pulmonary embolism or prophylaxis against venous thrombosis or systemic embolization. 2.0 - 3.0 for patients with tissue heart valves. 2.5 - 3.5 for patients with mechanical heart valves or post RI. Pediatric (12 years and under): 1.5 - [...] range for unfractionated heparin 04/16/2005 3:57 PM HAND CARVER Max Jhaveri MD HEMATOLOGY ORDERABLES Final R esult Performing Organization Address [facility] de Phone Number INTERFACE SYSTEM Refer to clinic/hospital department * MAGNESIUM LEVEL (04/16/2005 3:57 PM HAND CARVER) MAGNESIUM 1.9 1.5 - 2.5 mg/dL INTERFACE SYSTEM 04/16/2005 3:57 PM HAND CARVER Max Jhaveri MD CHEMISTRY ORDERABLES Final Re sult Performing Organization Address [facility] Phone Number INTERFACE SYSTEM Refer to clinic/hospital department * (ABNORMAL) BASIC METABOLIC PANEL (04/16/2005 3:57 PM HAND CARVER) GLUCOSE 142(H) 65 - 109 mg/dL INTERFACE [...] and redraw if necessary. 04/16/2005 3:57 PM HAND CARVER Max Jhaveri MD CHEMISTRY ORDERABLES Final Re sult Performing Organization Address [facility] Phone Number INTERFACE SYSTEM Refer to clinic/hospital department * LIPID PANEL (04/16/2005 6:10 AM HAND CARVER) LIPID PANEL COMMENT See below INTERFACE SYSTEM [...] section for risk classifications. 04/16/2005 6:10 AM HAND CARVER Cirilo Buenrostro MD CHEMISTRY ORDERABLES Sommer l Result Performing Organization Address [facility] Phone Number INTERFACE SYSTEM Refer to clinic/hospital department * (ABNORMAL) URINALYSIS (04/15/2005 4:23 PM HAND CARVER) COLOR UA Yellow INTERFACE SYSTEM CLARITY UA [...] Seen /HPF INTERFACE SYSTEM 04/15/2005 4:23 PM HAND CARVER Cirilo Buenrostro MD URINE ORDERABLES Final Re sult Performing Organization Address [facility] Phone Number INTERFACE SYSTEM Refer to clinic/hospital department * BASIC METABOLIC PANEL PLUS (04/15/2005 12:40 PM HAND CARVER) AST 21 12 - 32 U/L INTERFACE SYSTEM ALKALINE PHOSPHATASE 65 35 - 104 U/L INTERFACE SYSTEM BILIRUBIN TOTAL 0.3 0.2 - 1.0 mg/dL INTERFACE SYSTEM ALBUMIN 4.0 3.4 - 4.8 g/dL INTERFACE SYSTEM TOTAL PROTEIN 7.3 6.3 - 8.6 g/dL INTERFACE SYSTEM ALT 20 0 - 31 U/L INTERFACE SYSTEM 04/15/2005 12:4 0 PM HAND CARVER Cirilo Buenrostro MD CHEMISTRY ORDERABLES Sommer l Result Performing Organization Address [facility] de Phone Number INTERFACE SYSTEM Refer to clinic/hospital department * CBC WITH DIFFERENTIAL (04/15/2005 12:40 PM HAND CARVER) NEUTROPHILS 56 45 - 70 % INTERFAC [...] K/uL INTERFACE SYSTEM 04/15/2005 12:4 0 PM HAND CARVER Cirilo Buenrostro MD HEMATOLOGY ORDERABLES Fin al Result Performing Organization Address [facility] de Phone Number INTERFACE SYSTEM Refer to clinic/hospital department * (ABNORMAL) CBC WITH DIFFERENTIAL (04/15/2005 12:40 PM HAND CARVER) WBC 3.7(L) 4.0 - 9.8 K/uL INTERFACE [...] fL INTERFACE SYSTEM 04/15/2005 12:4 0 PM HAND CARVER Cirilo Buenrostro MD HEMATOLOGY ORDERABLES Fin al Result Performing Organization Address City/[facility] de Phone Number INTERFACE SYSTEM Refer to clinic/hospital department * PT AND APTT (04/15/2005 12:40 PM HAND CARVER) PROTIME 14.8 12.7 - 15.1 Seconds INTERFACE SYSTEM INR 1.1 0.9 - 1.1 INTERFACE SYSTEM Comment: INR Therapeutic Range: Adult: 2.0 - 3.0 for pulmonary embolism or prophylaxis against venous thrombosis or systemic embolization. 2.0 - 3.0 for patients with tissue heart valves. 2.5 - 3.5 for patients with mechanical heart valves or post RI. Pediatric (12 years and under): 1.5 - [...] for unfractionated heparin 04/15/2005 12:4 0 PM HAND CARVER Cirilo Buenrostro MD HEMATOLOGY ORDERABLES Fin al Result Performing Organization Address [facility] de Phone Number INTERFACE SYSTEM Refer to clinic/hospital department * (ABNORMAL) BASIC METABOLIC PANEL (04/15/2005 12:40 PM HAND CARVER) GLUCOSE 145(H) 65 - 109 mg/dL INTERFACE [...] mmol/L INTERFACE SYSTEM 04/15/2005 12:4 0 PM HAND CARVER us Cirilo Buenrostro MD CHEMISTRY ORDERABLES Sommer avila Result INTERFACE SYSTEM Refer to clinic/hospital department documented in this encounter Visit Diagnoses Diagnosis Coronary atherosclerosis of [place] coronary artery- Primary documented in this encounter
--- OUTSIDE RECORDS SUMMARY | 2024-07-18 13:16 | XMS_ITS | Clinical Summary ---
Author Organization [facility] Address [address] [place] [address] Care Team Providers Care Ladle Cleaner Name Role Phone Franco Randolph MD Unavailable [phone] Ernestina Luevano MD Primary Care Provider + Cirilo Buenrostro MD Unavailable [phone] Source Comments [facility],non-owned Affiliates and Associated Physician Practices is amultiple site organization consisting of ambulatory clinics and hospital sitesin [place], [place], [place] and [place]. This disclosure is being madepursuant to the Care Everywhere program and may not contain all information available regarding this patient. Last updated 17.[facility] Allergies No known active allergies Medications * Be aware that medications may not be up to date on this document. Alwaysverify current medications with the patient. enalapril (VASOTEC) 10 MG tablet Take 1 (one) tablet by mouth once daily 08/08/19 18 Active carvedilol (COREG) 25 MG tablet Take 1 (one) tablet by mouth 2 times daily with morning and evening meal 08/08/19 18 Active NOVOLOG FLEXPEN pen Inject 25 (twenty five) Units subcutaneously 3 times daily before meals 06/15/19 18 Active rosuvastatin (CRESTOR) 10 MG tablet Take 1 (one) tablet by mouth once daily 1 02/08/20 19 Active pantoprazole EC (PROTONIX) 40 MG tablet Take 1 (one) tablet by mouth once daily 07/04/19 21 Active Continuous Blood Gluc Reweaver (BabyFirstTVStyle Haritha Dickens) JACK Inject 1 device subcutaneously continuous 05/27/19 23 Active Tresiba FlexTouch 200 UNIT/ML pen INJECT 36 UNITS SUBCUTANEOUSLY ONCE DAILY 05/27/19 23 Active Coenzyme Q10 (CO Q 10 PO) Take 1 tablet by mouth once daily Active calcitriol (Rocaltrol) 0.5 MCG capsule Take 1 (one) capsule by mouth once daily 07/28/19 23 Active oxyCODONE, immediate release, (Roxicodone) 5 MG tabletIndications: Primary osteoarthritis of both knees Take 1 (one) tablet to 2 (two) tablets by mouth every 6 hours as needed for Pain (pain) 56 tablet 08/26/19 23 Active oxyCODONE, immediate release, (Roxicodone) 5 MG tabletIndications: Primary osteoarthritis of both knees Take 1 (one) tablet to 2 (two) tablets by mouth every 6 hours as needed for Pain (pain) 56 tablet 09/05/19 23 Active Continuous Blood Gluc Sensor (FreeStyle Haritha 2 Sensor Systm) MISC CHANGE SENSOR EVERY 14 DAYS 09/10/19 23 Active Active Problems Problem Noted Date Diagnosed [...] Overview: Added automatically from request for surgery [id number] Primary osteoarthritis of both knees 08/27/2017 DM type 2 with diabetic peripheral neuropathy Overview (08/27/2017): Last Assessment & Plan: Foot care discussed. Coronary artery disease invo lving [place] coronary artery of [place] heart without angina pectoris 01/28/2017 Hx of [...] more drinks on one occasion? 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 Gender Identity Not on file Sexual [...] history exists COVID-19 VACCINE ( season) 2023 DEPRESSION SCREENING 04/05/2024 DIABETES - URINE PROTEIN SCREENING 04/05/2024 06/01/2022 INFLUENZA VACCINE (Season Ended) 2024 HEPATITIS B VACCINE Aged Out No longe r eligible based on patient's age to complete this topic HIB VACCINE Aged Out No longer eligi ble based on patient's age to complete this topic HPV VACCINE Aged Out No longer eligi ble based on patient's age to complete this topic MENINGOCOCCAL (Group B) VACCINE SHARED DECISION-MAKING Aged Out No longer eligible based on patient's age to complete this topic MENINGOCOCCAL GROUPS A/C/Y/W VACCINE Aged Out No longer eligible based on patient's age to complete this topic Medical Devices Implanted Type Area Skewer Up Device Identifier Shelf Expiration Date Model / Serial / Lot Cmnt Bone Djo Srg Cblt 40gm Hvisc Strl Implanted:Qty: 1 on 08/17/2022 by Franco Randolph MD at [facility] Left: Knee [employer] 11/27/2023 600-15-000 / / [id number] Cmpnt Ptlr Std 28mm 3 Pg Kn Ser A Implanted:Qty: 1 on 08/17/2022 by Franco Randolph MD at [facility] Left: Knee [employer] 05/07/2027 [id number] / / [id number] Tray Tib 75mm Kn Cocr I Beam Implanted:Qty: 1 on 08/17/2022 by Franco Randolph MD at [facility] Left: Knee [employer] 08/24/2031 [id number] / / [id number] Cmpnt Fem Kn Lt Cr Cmnt Prm Vngrd Intlk 67.5 Mm Implanted:Qty: 1 on 08/17/2022 by Franco Randolph MD at [facility] Left: Knee [employer] 06/02/2032 [id number] / / [id number] Brng [id number] Vngrd Arcm Kn Ant Stab Implanted:Qty: 1 on 08/17/2022 by Franco Randolph MD at [facility] Left: Knee [employer] 05/22/2027 [id number] / / [id number] Procedures Procedure Name Priority Date/Time Associated Diagnosis Comments BASIC METABOLIC PANEL (CALCIUM TOTAL) AM Draw 08/18/2022 10:10 AM CDT 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, unspecified laterality from Last 3 Months or Most Recently [...] - 18 mmol/L 08/18/2022 10:45 AM CDT [facility] BUN 36(H) 9.8 - 20.1 mg/dL 08/18/2022 10:45 AM CDT [facility] Creatinine 1.00 0.57 - 1.11 mg/dL 08/18/2022 10:45 AM CDT [facility] eGFR by CKD-EPI 58(L) >=90 mL/min/1.7 3 m2 08/18/2022 10:45 AM CDT [facility] Blood BLOOD SPECIMEN / Unknown Venipuncture / Unknown 08/18/2022 10:10 AM CDT 08/18/2022 10:15 AM CDT Sunita Bal MD LAB - CHEMISTRY ORDERABLES Final Result [facility] [address] [place] [address] from Last 3 Months or Most Recently Relevant to Health Maintenance Insurance [place] [id number] MEDICARE HEALTHLINK [place] [id number] HEALTHLINK SELF PAY NO INSURANCE Member Subscriber Plan / Payer (Ef fective for All Dates) Name:Ana M Childress Member ID:Not on file Relation to Subscriber:Not on file Name:ANA M CHILDRESS Subscriber ID:Not on file (Home) Address: [address] [place] [address] [place] [address] Payer ID:Not on file Group ID:Not on file Type:Self Pay Address: [place] [place] [address] Advance Directives * Full Code (Latest Code Status on File) Date Activated Date Inactivated Comments 08/17/2022 1:40 PM 08/18/2022 4:20 PM Care Teams Ladle Cleaner Relationship Specialty Start Date End Date Ernestina Luevano MD [address] [place] [address] PCP - General Family Medicine 06/03/22 [place] [address] [place] [address] Orthopedic Surgery 08/27/17 Cirilo Buenrostro MD [address] [place] [address] Oil Rig Driller Cardiology 08/12/22
--- OUTSIDE RECORDS SUMMARY | 2024-07-18 13:16 | XMS_ITS | Encounter Summary ---
Author Organization [facility] Address 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
--- NOTE | 2024-07-18 13:18 | ED.GENADULT ---
HPI - General Adult General Chief complaint: Abdominal Pain Stated complaint: abd, buttock [ain Time Seen by Provider: 07/18/24 12:24 History of Present Illness HPI narrative: These 79-year-old female who presents emergency department with chief complaint of abdominal pain. Patient reports that she has been having pain for a while reports that pain is not improved by anything Related Data Home Medications ?Medication ?Instructions ?Recorded ?Confirmed ?Last Taken ?Type coenzyme Q10 100 mg capsule 200 mg PO DAILY 02/18/23 05/17/24 09/21/23 21:00 History (CoQ-10) dextrose 40 % oral gel (Glucose 20 g PO Q15M PRN hypoglycemia 05/17/24 05/17/24 Unknown History Gel) furosemide 20 mg tablet 20 mg PO DAILY 05/17/24 05/17/24 Unknown History glucagon 1 mg/0.2 mL subcutaneous 1 mg subcut PRN PRN blood sugar 05/17/24 05/17/24 Unknown History auto-injector (Gvoke HypoPen less than 60 unable to swallow 1-Pack) insulin degludec 200 unit/mL (3 40 unit subcut DAILY 05/17/24 05/17/24 Unknown History mL) subcutaneous pen (Tresiba FlexTouch U-200 insulin) Allergies Allergy/AdvReac Type Severity Reaction Status Date / Time No Known Allergies Allergy Verified 07/18/24 12:51 Review of Systems Review of Systems: A 10 system review of systems was completed on the patient and is negative except for what is stated in the HPI. Nursing and ancillary documentation was reviewed. 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 History of total abdominal hysterectomy and bilateral salpingo-oophorectomy History of vein stripping Family History Family History Mother History of stroke Other Diabetes mellitus Sibling Alzheimer disease Social History Social History Social History: Surrogate medical decision maker: Mary Martinez, daughter. Code status: Full code. Smoking packs per day: 1 Smoking cigarettes per day: 20.0 Years smoked: 30 Smoking pack-years: 30.00 Smoking status: Former smoker Tobacco type: cigarettes Second hand tobacco smoke exposure: No Alcohol intake: never Substance use: never Substance use type: does not use Do You Feel Safe in your Home?: Yes Lack of Transportation: No Lack of Food: Never True Current Housing: I Have Housing Concerned About Future Housing: No Difficulty Paying Gas/Electric Bills: No Difficulty Paying for Meds: No Currently Unemployed: No Education: High School Diploma/GED Difficulty w/ Childcare or Family Care: No Living arrangements: with family Occupation/Education: retired Gender identity (if verbalized by the patient): Female Sexual Orientation (if Verbalized by the Patient): Straight or Heterosexual Spiritual care concerns: No Agree to blood products: Yes Exam Narrative: GENERAL: Well-appearing, well-nourished, and in no acute distress. HEAD: Normocephalic, atraumatic. EYES: PERRLA and EOMI. ENT: Nares clear, no rhinorrhea or epistaxis. Mucous membranes moist. NECK: Supple. CHEST: Clear to auscultation. No respiratory distress. HEART: Regular rate and rhythm. No murmur heard. Normal peripheral pulses. ABDOMEN: Soft, use tenderness to palpation, nondistended, normal active bowel sounds. EXTREMITIES: Normal range of motion. No edema. SKIN: Warm, dry, no rash. NEURO: No focal deficits. Alert and oriented x3. PSYCH: Normal mood and affect. Course Vital Signs Vital signs: Vital Signs Temperature 36.6 C 07/18/24 12:27 Pulse Rate 70 07/18/24 12:27 Respiratory Rate 18 07/18/24 12:27 Pulse Oximetry 100 04/15/25 12:27 Oxygen Delivery Room Air 07/18/24 12:27 Temperature 36.6 C 07/18/24 12:27 Pulse Rate 65 07/18/24 14:31 Respiratory Rate 17 07/18/24 14:31 Blood Pressure 138/52 L 07/18/24 14:31 Pulse Oximetry 100 07/18/24 14:00 Oxygen Delivery Room Air 07/18/24 12:27 Medical Decision Making MDM Narrative Medical decision making narrative: Differential diagnosis includes intra-abdominal infection, diverticulitis, colitis, UTI, pyelonephritis Laboratory studies were within normal limits CT scan showed no acute abnormality Lactate was normal Troponin was negative Vital Signs Vital Signs: Vital Signs Temperature 36.6 C 07/18/24 12:27 Pulse Rate 70 07/18/24 12:27 Respiratory Rate 18 07/18/24 12:27 Pulse Oximetry 100 07/18/24 12:27 Oxygen Delivery Room Air 07/18/24 12:27 Temperature 36.6 C 07/18/24 12:27 Pulse Rate 65 07/18/24 14:31 Respiratory Rate 17 07/18/24 14:31 Blood Pressure 138/52 L 07/18/24 14:31 Pulse Oximetry 100 07/18/24 14:00 Oxygen Delivery Room Air 07/18/24 12:27 Lab Data 07/18/24 12:44 07/18/24 12:44 Labs: Lab Results 07/18/24 07/18/24 Range/Units 12:44 14:22 WBC 7.6 (4.5-10.0) K/mm3 RBC 3.52 L (4.2-5.4) M/mm3 Hgb 10.9 L (12.0-15.0) g/dL Hct 33.6 L (37.0-47.0) % MCV 95.5 (80-100) fl MCH 31.0 (26-34) pg MCHC 32.4 (32-36) g/dl RDW 13.2 (11.5-14.5) % Plt Count 194 (150-375) k/mm3 MPV 12.3 H (7.4-10.4) fl Immature Gran % (Auto) 0.1 (0-0.5) % Neut % (Auto) 57.6 (45.5-73.1) % Lymph % (Auto) 26.7 (18.3-44.2) % [place] % (Auto) 11.4 H (2.6-8.5) % Eos % (Auto) 3.4 (0-4.4) % Baso % (Auto) 0.8 (0.2-1.2) % Lymph # (Auto) 2.03 (0.9-3.2) K/mm3 [place] # (Auto) 0.9 H (0.1-0.6) K/mm3 Eos # (Auto) 0.3 (0-0.3) K/mm3 Baso # (Auto) 0.1 (0.0-0.1) K/mm3 Abs Immat Gran (auto) 0.01 (0.00-0.031) K/mm3 Absolute Neuts (auto) 4.4 (1.3-6.7) K/mm3 Absolute Nucleated RBC 0.000 (0.0-0.012) K/mm3 Nucleated RBC % 0.0 (0.0-0.2) % Sodium 135 L (137-145) mmol/L Potassium 4.2 (3.4-5.0) mmol/L Chloride 101 (98-107) mmol/L Carbon Dioxide 24 (22-30) mmol/L Anion Gap 10 (4-12) mmol/L BUN 39 H (7-17) mg/dL Creatinine 1.07 H (0.7-1.0) mg/dL Estim Creat Clear Calc 36 ml/min Estimated GFR 49 L (59 - ) Glucose 198 H (65-110) mg/dL Lactic Acid 1.4 (0.7-2.0) mmol/L Calcium 9.2 (8.4-10.2) mg/dL Total Bilirubin 0.2 (0.2-1.3) mg/dL AST 22 (14-36) U/L ALT 16 (6-35) U/L Alkaline Phosphatase 78 (38-126) U/L Troponin I 0.013 (0.000-0.034) ng/mL Total Protein 7.0 (6.3-8.2) g/dL Albumin 3.8 (3.5-5.1) g/dL Lipase 199 (23-300) U/L Urine Color Yellow (Yellow) Urine Appearance Clear (Clear) Urine pH 7.5 (5.0-9.0) Ur Specific [place] 1.017 (1.001-1.035) Urine Protein Negative (Negative) mg/dL Urine Glucose (UA) Trace H (Negative) mg/dL Urine Ketones Trace H (Negative) mg/dL Ur Blood (Man) Negative (Negative) Urine Nitrate Negative (Negative) Urine Bilirubin Negative (Negative) Urine Urobilinogen 0.2 (<2.0) mg/dL Leukocyte Esterase Rfl Negative (Negative) SHELLEY/UL Discharge Plan Discharge Clinical Impression: Abdominal pain Patient Disposition: [place] [facility] Living Condition: Stable Instructions: Antibiotic Form, Abdominal Pain (ED) Patient Language: Danish Prescriptions: No Action coenzyme Q10 [CoQ-10] 100 mg Capsule 200 mg PO DAILY (DME) FreeStyle Haritha 3 Francitas Misc See Rx Instructions .Route Qty: 2 1RF Rx Instructions: As directed (DME) FreeStyle Haritha 3 Sensor Device See Rx Instructions .Route Qty: 4 4RF Rx Instructions: As directed rosuvastatin 10 mg tablet 10 mg PO QPM Qty: 90 3RF paroxetine HCl 20 mg tablet 30 mg PO DAILY Qty: 135 2RF memantine 5 mg tablet 5 mg PO BID Qty: 60 2RF trazodone 50 mg tablet 50 mg PO QHS Qty: 90 3RF aspirin 81 mg tablet,chewable 81 mg PO QPM Qty: 90 2RF enalapril maleate 10 mg tablet 20 mg PO DAILY Qty: 90 4RF pantoprazole [Protonix] 40 mg tablet,delayed release (DR/EC) 40 mg PO QAM 28 Days Qty: 10 0RF ondansetron 4 mg tablet,disintegrating 4 mg PO Q8H PRN (Reason: nausea and vomiting) Qty: 10 0RF acetaminophen 500 mg tablet 1,000 mg PO TID PRN (Reason: arabella) 7 Days Qty: 42 0RF Gvoke HypoPen 1-Pack 1 mg/0.2 mL auto-injector 1 mg SUBCUT PRN PRN (Reason: blood sugar less than 60 unable to swallow) dextrose [Glucose Gel] 40 % gel 20 g PO Q15M PRN (Reason: hypoglycemia) Rx Instructions: until symptoms of low blood sugar are controlled blood sugar greater than 60 furosemide 20 mg tablet 20 mg PO DAILY insulin degludec [Tresiba FlexTouch U-200] 200 unit/mL (3 mL) insulin pen 40 unit SUBCUT DAILY carvedilol [Coreg] 6.25 mg tablet 6.25 mg PO BID Qty: 60 0RF Rx Instructions: must administer with a meal/food insulin aspart U-100 [Novolog FlexPen U-100 Insulin] 100 unit/mL (3 mL) insulin pen 20 unit subcut TIDWM Qty: 15 0RF Rx Instructions: 20 unit subcutaneously TID WITH MEALS divalproex [Depakote] 125 mg tablet,delayed release (DR/EC) 125 mg PO BID Qty: 60 3RF rivaroxaban 20 mg tablet 20 mg PO QPM Qty: 90 0RF (DME) pen needle, diabetic [BD Ultra-Fine Short Pen Needle] 31 gauge x 5/16 needle See Rx Instructions .Route Qty: 400 3RF Rx Instructions: inject qac and qhs Follow-up/Referrals: Ernestina Luevano MD [Primary Care Provider] - Time of Disposition: 14:49
--- OUTSIDE RECORDS SUMMARY | 2024-07-18 13:40 | XMS_ITS | Encounter Summary ---
Author Organization [facility] Address 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
--- OUTSIDE RECORDS SUMMARY | 2024-07-18 13:40 | XMS_ITS | Encounter Summary ---
Author Organization [facility] Address [address] [place] [address] Care Team Providers Care Lead Systems Analyst Name Role Phone Unavailable Primary Care Provider Unavailabl e Encounter Details Date Type Department Care Team (Late st Contact Info) Description 04/15/2005 Outpatient Historical 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
--- OUTSIDE RECORDS SUMMARY | 2024-07-18 13:40 | XMS_ITS | Encounter Summary ---
Author Organization [facility] Address [address] [place] [address] Care Team Providers Care Patrol Inspector Name Role Phone Unavailable Primary Care Provider Unavailabl e Encounter Details Date Type Department Care Team (Late st Contact Info) Description 04/15/2005 Outpatient Historical [facility] Cardiovas and Thor Surg at [facility] Heart [address] [address] Max Jhaveri MD [address] [place] [id number] Social History Tobacco Use Types Packs/Day Years Used Date Smoking Tobacco: Never Assessed Comments Unknown Sex and Gender Information Value Date Recorded Sex Assigned at Not on file 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
--- OUTSIDE RECORDS SUMMARY | 2024-07-18 13:40 | XMS_ITS | Clinical Summary ---
Author Organization [facility] [address] Address [address] [place] [address] Care Team Providers Care Merchandise Complaint Adjuster Name Role Phone Catalina Mejia MD Primary Care Provider + [phone] Josef Groves MD Unavailable [phone] Allergies No known active allergies Medications [...] flash glucose scanning reader (FreeStyle Haritha 2 [place]) [facility] USE DIRECTED 1 each 1 3 Active [...] (07/22/2020): Added automatically from request for surgery [id number] Chronic cholecystitis with calculus 03/27/2020 Calculus of gallbladder with chronic cholecystitis without obstruction 03/27/2020 Overview (03/27/2020): Added automatically from request for surgery [id number] Type 2 diabetes mellitus wit h hyperglycemia, with long-term current use of insulin ([facility]) 07/15/2017 Assessment & Plan (08/11/2022 4:37 PM [...] provided as she was driving back to [place]. Instructed not to drive until all 8 [...] rosuvastatin Assessment & Plan (05/27/2022 5:14 PM CAUSTIC OPERATOR): This is a chronic condition which is [...] care discussed. Coronary artery disease invo lving [place] coronary artery of [place] heart without angina pectoris 01/28/2017 Hx of [...] prescribed. Assessment & Plan (05/27/2022 5:15 PM CAUSTIC OPERATOR): This is a chronic condition. goal - LDL less than 70 Continue rosuvastatin. Encouraged to eat healthy, include fresh fruits and vegetables daily and avoid eating fried foods more than once per week. Encouraged to take medications as prescribed. Repeat lipid panel ordered. Assessment & Plan (03/11/2018 8:31 AM CAUSTIC OPERATOR): Continue statin and follow up with cardiology [...] prescribed. Assessment & Plan (05/27/2022 5:15 PM CAUSTIC OPERATOR): This is a chronic condition which is [...] ARB Assessment & Plan (03/11/2018 8:31 AM CAUSTIC OPERATOR): Controlled on current medications. Assessment & Plan [...] (10/05/2017): Added automatically from request for surgery [id number] Cellulitis of left lower extremity 12/28/2016 04/03/2020 [...] goal hba1c is under 7.0 to prevent fpc diabetes complications ( eye , kidney and [...] Farxiga. Assessment & Plan (03/11/2018 8:30 AM CAUSTIC OPERATOR): A1c is 9.5. Increase Levemir to 34 [...] goal hba1c is under 7.0 to prevent fpc diabetes complications ( eye , kidney and [...] on file Legal Sex Female 10:56 AM CAUSTIC OPERATOR Gender Identity Not on file Sexual Orientation Not on file Obstetrics History Last Filed Vital Signs Vital Sign Reading Time Taken Comments Blood Pressure 118/64 08/11/2022 4:01 PM CDT Pulse 65 05/26/2022 2:15 PM CAUSTIC OPERATOR Temperature 36.3 C (97.3 F) 09/16/2020 8:32 AM CDT Respiratory Rate 15 09/16/2020 9:28 AM CDT Oxygen Saturation 97% 05/26/2022 2:15 PM CAUSTIC OPERATOR Inhaled Oxygen Concentration - - Weight 81.2 [...] Diagnosis Comments EGFR Routine 03/31/2024 10:51 AM CAUSTIC OPERATOR LIPID PANEL Routine 03/31/2024 10:51 AM CAUSTIC OPERATOR POCT HEMOGLOBIN A1C Routine 08/11/2022 4 :07 PM CDT Type 2 diabetes mellitus with hyperglycemia, with long-term current use of insulin (HCC) ALBUMIN CREATININE RATIO, URINE Routine 06/01/2022 8:10 AM CAUSTIC OPERATOR Type 2 diabetes mellitus with hyperglycemia, with long-term current use of insulin (HCC) COLONOSCOPY 09/16/2020 8:22 AM CDT from Last 3 Months or Most Recently Relevant to Health Maintenance Results * eGFR (03/31/2024 10:51 AM CAUSTIC OPERATOR) eGFR 82 >=60 mL/min/1. 73 m2 Comment: [...] reviewed 2021. Blood 03/31/2024 10:5 1 AM CAUSTIC OPERATOR 03/31/2024 5:14 PM CAUSTIC OPERATOR us Notinfile Unknown LAB BLOOD ORDERABLES Final Res ult [facility] [address] Department [place] [address] * Lipid panel (03/31/2024 10:51 AM CAUSTIC OPERATOR) Cholesterol 177 30 - 199 mg/dL Comment: [...] revised on 2017. Triglycerides 96 <=149 mg/dL [facility] Comment: Interpretive Data Ages < or = [...] revised on 2017. HDL 53 >=40 mg/dL [facility] Comment: Interpretive Data Ages < or = [...] on 2017. LDL, calculated 106 <=129 mg/dL [facility] Comment: Interpretive Data Ages < or = [...] revised on 2023. Non-HDL Cholesterol 124 mg/dL [facility] Comment: Interpretive Data Ages < or = [...] last revised on 2017. Chol/HDL ratio 3 [facility] Blood 03/31/2024 10:5 1 AM CAUSTIC OPERATOR 03/31/2024 2:12 PM CAUSTIC OPERATOR us Notinfile Unknown LAB BLOOD ORDERABLES Final Res ult [facility] [address] [place] [address] * POCT hemoglobin A1c (08/11/2022 4:07 PM CDT) Hemoglobin A1C, POC 7.2 % Blood 08/11/2022 4:07 PM CDT us Yennifer Cosby NP POINT OF CARE TEST ORDERABLES F inal Result * (ABNORMAL) Albumin Creatinine Ratio, Urine (06/01/2022 8:10 AM CAUSTIC OPERATOR) Albumin Ur 112.4 mg/L [facility] ([place]) Comment: Interpretive Data No reference range established. Current interpretive data was last revised 2018. Testing performed by: [facility], [address] [place] [address]., [id number] Creatinine Ur 107.2 mg/dL [facility] ([place]) Comment: Interpretive Data No reference range established. Current interpretive data was last revised 2018. Testing performed by: [facility], [address] [place] [address]., [id number] Albumin Creatinine Ratio, Ur 105(H) 1 - 29 mg/g [facility] ([place]) Comment:Testing performed by : [facility], [address] [place] [address]., [id number] Urine 06/01/2022 8:10 AM CAUSTIC OPERATOR 06/01/2022 11:15 AM CAUSTIC OPERATOR us Yennifer Cosby LOGISTICS RESEARCH ENGINEER LAB URINE ORDERABLES Final Resu lt [facility] ([place]) 1 [facility] Department [place] [address] * COLONOSCOPY (09/16/2020 8:22 AM CDT) Anatomical [...] ofthe bowel preparation was evaluated using the BBPS([place] Bowel Preparation Scale) with scores of: RightColon [...] Recently Relevant to Health [place] [address] [facility] MEDICARE [facility] [id number] [place] [address] [facility] [email or web address] OPEN ACCESS [facility] [id number] MEDICARE Advance Directives For more information, please contact: [phone] * Full Code (Latest Code Status on File) Date Activated Date Inactivated Comments 09/16/2020 7:53 AM 09/16/2020 1:51 PM * Full Code Date Activated Date Inactivated Comments 04/08/2020 8:07 PM 04/09/2020 3:48 PM * Full Code Date Activated Date Inactivated Comments 12/04/2019 7:00 AM 12/04/2019 1:23 PM * Full Code Date Activated Date Inactivated Comments 10/02/2019 11:59 AM 10/02/2019 5:31 PM Care Teams Merchandise Complaint Adjuster Relationship Specialty Start Date End Date Catalina Mejia MD [address] [place] [address] PCP - General Internal Medicine 09/05/19 Josef Groves MD [address] [place] [address] Consulting Physician General Surgery 04/08/20
--- OUTSIDE RECORDS SUMMARY | 2024-07-18 13:40 | XMS_ITS | Referral Summary ---
Author Organization [facility] [address] Address [address] [place] [address] Care Team Providers Care Regulatory Lead Name Role Phone Catalina Mejia MD Primary Care Provider + [phone] Josef Groves MD Unavailable [phone] Allergies No known active allergies Medications [...] flash glucose scanning reader (FreeStyle Haritha 2 [place]) [facility] USE DIRECTED 1 each 1 3 Active [...] (07/22/2020): Added automatically from request for surgery [id number] Chronic cholecystitis with calculus 03/27/2020 Calculus of gallbladder with chronic cholecystitis without obstruction 03/27/2020 Overview (03/27/2020): Added automatically from request for surgery [id number] Type 2 diabetes mellitus wit h hyperglycemia, with long-term current use of insulin ([facility]) 07/15/2017 Assessment & Plan (08/11/2022 [...] provided as she was driving back to [employer]. Instructed not to drive until all 8 [...] rosuvastatin Assessment & Plan (05/27/2022 5:14 PM FUNERAL PROFESSIONAL): This is a chronic condition which is [...] care discussed. Coronary artery disease invo lving [place] coronary artery of [place] heart without angina pectoris 01/28/2017 Hx of [...] prescribed. Assessment & Plan (05/27/2022 5:15 PM FUNERAL PROFESSIONAL): This is a chronic condition. goal - LDL less than 70 Continue rosuvastatin. Encouraged to eat healthy, include fresh fruits and vegetables daily and avoid eating fried foods more than once per week. Encouraged to take medications as prescribed. Repeat lipid panel ordered. Assessment & Plan (03/11/2018 8:31 AM FUNERAL PROFESSIONAL): Continue statin and follow up with cardiology [...] prescribed. Assessment & Plan (05/27/2022 5:15 PM FUNERAL PROFESSIONAL): This is a chronic condition which is [...] ARB Assessment & Plan (03/11/2018 8:31 AM FUNERAL PROFESSIONAL): Controlled on current medications. Assessment & Plan [...] (10/05/2017): Added automatically from request for surgery [id number] Cellulitis of left lower extremity 12/28/2016 04/03/2020 [...] goal hba1c is under 7.0 to prevent retirement diabetes complications ( eye , kidney and [...] Farxiga. Assessment & Plan (03/11/2018 8:30 AM FUNERAL PROFESSIONAL): A1c is 9.5. Increase Levemir to 34 [...] goal hba1c is under 7.0 to prevent long distance operator diabetes complications ( eye , kidney and [...] on file Legal Sex Female 10:56 AM FUNERAL PROFESSIONAL Gender Identity Not on file Sexual Orientation Not on file Last Filed Vital Signs Vital Sign Reading Time Taken Comments Blood Pressure 118/64 08/11/2022 4:01 PM CDT Pulse 65 05/26/2022 2:15 PM FUNERAL PROFESSIONAL Temperature 36.3 C (97.3 F) 09/16/2020 8:32 AM CDT Respiratory Rate 15 09/16/2020 9:28 AM CDT Oxygen Saturation 97% 05/26/2022 2:15 PM FUNERAL PROFESSIONAL Inhaled Oxygen Concentration - - Weight 81.2 kg (179 lb) 08/11/2022 4:01 PM CDT Height 162.6 cm (5' 4 ) 08/11/2022 4:01 PM CDT Body Mass Index 30.73 08/11/2022 4:01 PM CDT Plan of Treatment Not on file Procedures Procedure Name Priority Date/Time Associated Diagnosis Comments EGFR Routine 03/31/2024 10:51 AM FUNERAL PROFESSIONAL LIPID PANEL Routine 03/31/2024 10:51 AM FUNERAL PROFESSIONAL POCT HEMOGLOBIN A1C Routine 08/11/2022 4 :07 PM CDT Type 2 diabetes mellitus with hyperglycemia, with long-term current use of insulin (HCC) ALBUMIN CREATININE RATIO, URINE Routine 06/01/2022 8:10 AM FUNERAL PROFESSIONAL Type 2 diabetes mellitus with hyperglycemia, with long-term current use of insulin (HCC) COLONOSCOPY 09/16/2020 8:22 AM CDT from Last 3 Months or Most Recently Relevant to Health Maintenance Results * eGFR (03/31/2024 10:51 AM FUNERAL PROFESSIONAL) eGFR 82 >=60 mL/min/1. 73 m2 Comment: [...] reviewed 2021. Blood 03/31/2024 10:5 1 AM FUNERAL PROFESSIONAL 03/31/2024 5:14 PM FUNERAL PROFESSIONAL us Notinfile Unknown LAB BLOOD ORDERABLES Final Res ult [facility] [address] Department [place] [address] * Lipid panel (03/31/2024 10:51 AM FUNERAL PROFESSIONAL) Cholesterol 177 30 - 199 mg/dL Comment: [...] revised on 2017. Triglycerides 96 <=149 mg/dL [facility] Comment: Interpretive Data Ages < or = [...] revised on 2017. HDL 53 >=40 mg/dL [facility] Comment: Interpretive Data Ages < or = [...] on 2017. LDL, calculated 106 <=129 mg/dL [facility] Comment: Interpretive Data Ages < or = [...] revised on 2023. Non-HDL Cholesterol 124 mg/dL [facility] Comment: Interpretive Data Ages < or = [...] last revised on 2017. Chol/HDL ratio 3 [facility] Blood 03/31/2024 10:5 1 AM FUNERAL PROFESSIONAL 03/31/2024 2:12 PM FUNERAL PROFESSIONAL us Notinfile Unknown LAB BLOOD ORDERABLES Final Res ult [facility] [address] Department [place] [address] * POCT hemoglobin A1c (08/11/2022 4:07 PM CDT) Hemoglobin A1C, POC 7.2 % Blood 08/11/2022 4:07 PM CDT Yennifer Cosby ASSOCIATE MATERIAL HANDLER POINT OF CARE TEST ORDERABLES F inal Result * (ABNORMAL) Albumin Creatinine Ratio, Urine (06/01/2022 8:10 AM FUNERAL PROFESSIONAL) Albumin Ur 112.4 mg/L [facility] ([place]) Comment: Interpretive Data No reference range established. Current interpretive data was last revised 2018. Testing performed by: [facility], [address] [place] [address]., [address] Creatinine Ur 107.2 mg/dL [facility] ([place]) Comment: Interpretive Data No reference range established. Current interpretive data was last revised 2018. Testing performed by: [facility], [address] [place] [address]., [id number] Albumin Creatinine Ratio, Ur 105(H) 1 - 29 mg/g [facility] ([place]) Comment:Testing performed by : [facility], [address] [place] [address]., [id number] Urine 06/01/2022 8:10 AM FUNERAL PROFESSIONAL 06/01/2022 11:15 AM FUNERAL PROFESSIONAL Yennifer Cosby ASSOCIATE MATERIAL HANDLER LAB URINE ORDERABLES Final Resu lt [facility] ([place]) 1 [facility] Department [place] [address] * COLONOSCOPY (09/16/2020 8:22 AM CDT) Anatomical Region Laterality Modality Other Narrative Procedure Note Danitza Sawyer MD - 09/16/2020 8:22 AM CDT ENDOSCOPY LAB Patient Name: Ana M Junior Procedure Date: 09/16/2020 8:22 AM Admit Type: Outpatient Room: [facility] 2 Date of : 1945 Instrument Name: [...] ofthe bowel preparation was evaluated using the BBPS([place] Bowel Preparation Scale) with scores of: RightColon [...] Most Recently Relevant to Health Maintenance Insurance [facility] MEDICARE [facility] Address: [facility] [address] [place] [address] [facility] [address] [place] [address] [facility] MEDICARE [facility] Address: [address] [address] [place] [address] [employer] OPEN ACCESS [place] [facility] [id number] MEDICARE Advance Directives For more information, please contact: [phone] * Full Code (Latest Code Status on File) Date Activated Date Inactivated Comments 09/16/2020 7:53 AM 09/16/2020 1:51 PM * Full Code Date Activated Date Inactivated Comments 04/08/2020 8:07 PM 04/09/2020 3:48 PM * Full Code Date Activated Date Inactivated Comments 12/04/2019 7:00 AM 12/04/2019 1:23 PM * Full Code Date Activated Date Inactivated Comments 10/02/2019 11:59 AM 10/02/2019 5:31 PM Care Teams Regulatory Lead Relationship Specialty Start Date End Date Catalina Mejia MD [address] [place] [address] PCP - General Internal Medicine 09/05/19 Josef Groves MD [address] [place] [address] Consulting Physician General Surgery 04/08/20
--- OUTSIDE RECORDS SUMMARY | 2024-07-18 13:40 | XMS_ITS | Encounter Summary ---
Author Organization [facility] Address [address] [place] [address] Care Team Providers Care Cylinder Devalver Name Role Phone Unavailable Primary Care Provider Unavailabl e Encounter Details Date Type Department Care Team (Late st Contact Info) Description 04/16/2005 Outpatient Historical [facility] Cardiovas and Thor Surg at [facility] Heart [address] [address] Richard Cotto, [place] NO ADDRESS ON FILE Social History Tobacco Use Types Packs/Day Years Used Date Smoking Tobacco: Never Assessed Comments Unknown Sex and Gender Information Value Date Recorded Sex Assigned at Not on file Legal Sex Female 5:02 AM GUSSET STITCHER Gender Identity Not on file Sexual Orientation Not on file documented as of this encounter Plan of Treatment Not on file documented as of this encounter Visit Diagnoses Not on filedocumented in this encounter
--- OUTSIDE RECORDS SUMMARY | 2024-07-18 13:40 | XMS_ITS | Encounter Summary ---
Author Organization [facility] Address [address] [place] [address] Care Team Providers Care Hvac Services Professional Name Role Phone Unavailable Primary Care Provider Unavailabl e Encounter Details Date Type Department Care Team (Late st Contact Info) Description 04/18/2005 Outpatient Historical [facility] Support Serv. (Adt Cardiology-[place]) [facility] [place] [address] Bladimir Monahan MD [address] [facility] [address] [place] [address] Social History Tobacco Use Types Packs/Day Years Used Date Smoking Tobacco: Never Assessed Comments Unknown Sex and Gender Information Value Date Recorded Sex Assigned at Not on file Legal Sex Female 5:02 AM CHARGE MASTER ANALYST Gender Identity Not on file Sexual Orientation Not on file documented as of this encounter Plan of Treatment Not on file documented as of this encounter Visit Diagnoses Not on filedocumented in this encounter
--- OUTSIDE RECORDS SUMMARY | 2024-07-18 13:40 | XMS_ITS | Encounter Summary ---
Author Organization [facility] Address [address] [place] [address] Care Team Providers Care Webfed Offset Press Operator Name Role Phone Unavailable Primary Care Provider Unavailabl e Encounter Details Date Type Department Care Team (Late st Contact Info) Description 05/20/2005 Outpatient Historical [facility] Cardiovas and Thor Surg at [facility] Heart [address] [address] Max Jhaveri MD [address] [place] [id number] Social History Tobacco Use Types Packs/Day Years Used Date Smoking Tobacco: Never Assessed Comments Unknown Sex and Gender Information Value Date Recorded Sex Assigned at Not on file Legal Sex Female 5:02 AM ENGINEERING SUPPLIES 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
--- OUTSIDE RECORDS SUMMARY | 2024-07-18 13:40 | XMS_ITS | Encounter Summary ---
Author Organization [facility] Address 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 Max Jhaveri MD [address] [facility] [address] [place] [address] Cirilo Buenrostro MD [address] [facility] [address] [place] [id number] CORON ATHEROSCL PASCUA YAQUI CORON VESSEL (Primary Dx) Social History Tobacco Use Types Packs/Day Years Used Date Smoking Tobacco: Never Assessed Comments Unknown Sex and Gender Information Value Date Recorded Sex Assigned at Not on file Legal Sex Female 5:02 AM DUAL RATE DEALER Gender Identity Not on file Sexual Orientation Not on file documented as of this encounter Plan of Treatment Not on file documented as of this encounter Procedures Procedure Name Priority Date/Time Associated Diagnosis Comments POC GLUCOSE Routine 04/19/2005 5:35 AM DUAL RATE DEALER POC GLUCOSE Routine 04/18/2005 9:01 PM DUAL RATE DEALER POC GLUCOSE Routine 04/18/2005 4:37 PM DUAL RATE DEALER POC GLUCOSE Routine 04/18/2005 11:10 AM DUAL RATE DEALER POC GLUCOSE Routine 04/18/2005 5:32 AM DUAL RATE DEALER CBC WITH DIFFERENTIAL Routine 04/18/2005 5:00 AM DUAL RATE DEALER CBC WITH DIFFERENTIAL Routine 04/18/2005 5:00 AM DUAL RATE DEALER BASIC METABOLIC PANEL Routine 04/18/2005 5:00 AM DUAL RATE DEALER POC GLUCOSE Routine 04/17/2005 9:10 PM DUAL RATE DEALER CVR ONLY, CKMB/CK Routine 04/17/2005 7:3 9 PM DUAL RATE DEALER POC GLUCOSE Routine 04/17/2005 4:50 PM DUAL RATE DEALER POC GLUCOSE Routine 04/17/2005 11:06 AM DUAL RATE DEALER POC GLUCOSE Routine 04/17/2005 6:13 AM DUAL RATE DEALER POC GLUCOSE Routine 04/17/2005 4:45 AM DUAL RATE DEALER PT AND APTT Routine 04/17/2005 4:23 AM DUAL RATE DEALER CBC WITH DIFFERENTIAL Routine 04/17/2005 4:23 AM DUAL RATE DEALER CBC WITH DIFFERENTIAL Routine 04/17/2005 4:23 AM DUAL RATE DEALER MAGNESIUM LEVEL Routine 04/17/2005 4:23 AM DUAL RATE DEALER COMPREHENSIVE METABOLIC PANEL Routine 04/17/2005 4:23 AM DUAL RATE DEALER POC GLUCOSE Routine 04/17/2005 1:59 AM DUAL RATE DEALER CVR ONLY, CKMB/CK Routine 04/17/2005 1:0 0 AM DUAL RATE DEALER HEMOGLOBIN AND HEMATOCRIT Routine 04/17/2005 1:00 AM DUAL RATE DEALER POTASSIUM LEVEL Routine 04/17/2005 1:00 AM DUAL RATE DEALER POC GLUCOSE Routine 04/17/2005 12:53 AM DUAL RATE DEALER POC GLUCOSE Routine 04/16/2005 11:21 PM DUAL RATE DEALER POC GLUCOSE Routine 04/16/2005 10:17 PM DUAL RATE DEALER POC GLUCOSE Routine 04/16/2005 9:29 PM DUAL RATE DEALER POC, BLOOD GASES Routine 04/16/2005 8:45 PM DUAL RATE DEALER POC GLUCOSE Routine 04/16/2005 8:26 PM DUAL RATE DEALER POTASSIUM LEVEL Routine 04/16/2005 8:00 PM DUAL RATE DEALER MAGNESIUM LEVEL Routine 04/16/2005 8:00 PM DUAL RATE DEALER POC GLUCOSE Routine 04/16/2005 7:51 PM DUAL RATE DEALER POC GLUCOSE Routine 04/16/2005 6:31 PM DUAL RATE DEALER POC GLUCOSE Routine 04/16/2005 5:36 PM DUAL RATE DEALER POC GLUCOSE Routine 04/16/2005 4:19 PM DUAL RATE DEALER POC, BLOOD GASES Routine 04/16/2005 4:05 PM DUAL RATE DEALER CVR ONLY, CKMB/CK Routine 04/16/2005 3:5 7 PM DUAL RATE DEALER PT AND APTT Routine 04/16/2005 3:57 PM DUAL RATE DEALER CBC WITH DIFFERENTIAL Routine 04/16/2005 3:57 PM DUAL RATE DEALER CBC WITH DIFFERENTIAL Routine 04/16/2005 3:57 PM DUAL RATE DEALER MAGNESIUM LEVEL Routine 04/16/2005 3:57 PM DUAL RATE DEALER BASIC METABOLIC PANEL Routine 04/16/2005 3:57 PM DUAL RATE DEALER LIPID PANEL Routine 04/16/2005 6:10 AM DUAL RATE DEALER URINALYSIS W/REFLEX MICROSCOPIC Routine 04/15/2005 4:23 PM DUAL RATE DEALER BASIC METABOLIC PANEL PLUS Routine 04/15/2005 12:40 PM DUAL RATE DEALER PT AND APTT Routine 04/15/2005 12:40 PM DUAL RATE DEALER CBC WITH DIFFERENTIAL Routine 04/15/2005 12:40 PM DUAL RATE DEALER CBC WITH DIFFERENTIAL Routine 04/15/2005 12:40 PM DUAL RATE DEALER BASIC METABOLIC PANEL Routine 04/15/2005 12:40 PM DUAL RATE DEALER documented in this encounter Results * (ABNORMAL) POC GLUCOSE (04/19/2005 5:35 AM DUAL RATE DEALER) COMMENT, GLU POC Notified RN INTERFACE SYSTEM GLUCOSE POC 142(H) 65 - 109 mg/dL INTERFACE SYSTEM 04/19/2005 5:35 AM DUAL RATE DEALER Cirilo Buenrostro MD POINT OF CARE TESTING Fin al Result Performing Organization Address [facility] de Phone Number INTERFACE SYSTEM Refer to clinic/hospital department * (ABNORMAL) POC GLUCOSE (04/18/2005 9:01 PM DUAL RATE DEALER) COMMENT, GLU POC Notified RN INTERFACE SYSTEM GLUCOSE POC 221(H) 65 - 109 mg/dL INTERFACE SYSTEM 04/18/2005 9:01 PM DUAL RATE DEALER Cirilo Buenrostro MD POINT OF CARE TESTING Fin al Result Performing Organization Address [facility] de Phone Number INTERFACE SYSTEM Refer to clinic/hospital department * (ABNORMAL) POC GLUCOSE (04/18/2005 4:37 PM DUAL RATE DEALER) GLUCOSE POC 170(H) 65 - 109 mg/dL INTERFACE SYSTEM 04/18/2005 4:37 PM DUAL RATE DEALER Cirilo Buenrostro MD POINT OF CARE TESTING Fin al Result Performing Organization Address [facility] de Phone Number INTERFACE SYSTEM Refer to clinic/hospital department * (ABNORMAL) POC GLUCOSE (04/18/2005 11:10 AM DUAL RATE DEALER) COMMENT, GLU POC Notified RN INTERFACE SYSTEM GLUCOSE POC 220(H) 65 - 109 mg/dL INTERFACE SYSTEM 04/18/2005 11:1 0 AM DUAL RATE DEALER Cirilo Buenrostro MD POINT OF CARE TESTING Fin al Result Performing Organization Address [facility] Phone Number INTERFACE SYSTEM Refer to clinic/hospital department * (ABNORMAL) POC GLUCOSE (04/18/2005 5:32 AM DUAL RATE DEALER) GLUCOSE POC 193(H) 65 - 109 mg/dL INTERFACE SYSTEM 04/18/2005 5:32 AM DUAL RATE DEALER Cirilo Buenrostro MD POINT OF CARE TESTING Fin al Result Performing Organization Address [facility] Phone Number INTERFACE SYSTEM Refer to clinic/hospital department * (ABNORMAL) CBC WITH DIFFERENTIAL (04/18/2005 5:00 AM DUAL RATE DEALER) NEUTROPHIL ABSOLUTE 5.67 1.90 - 7.00 K/uL [...] Normal INTER FACE SYSTEM 04/18/2005 5:00 AM DUAL RATE DEALER Cirilo Buenrostro MD HEMATOLOGY ORDERABLES Fin al Result Performing Organization Address [facility] Phone Number INTERFACE SYSTEM Refer to clinic/hospital department * (ABNORMAL) CBC WITH DIFFERENTIAL (04/18/2005 5:00 AM DUAL RATE DEALER) WBC 7.0 4.0 - 9.8 K/uL INTERFACE [...] 12.4 fL INTERFACE SYSTEM 04/18/2005 5:00 AM DUAL RATE DEALER Cirilo Buenrostro MD HEMATOLOGY ORDERABLES Fin al Result Performing Organization Address [facility] Phone Number INTERFACE SYSTEM Refer to clinic/hospital department * (ABNORMAL) BASIC METABOLIC PANEL (04/18/2005 5:00 AM DUAL RATE DEALER) GLUCOSE 186(H) 65 - 109 mg/dL INTERFACE [...] 30 mmol/L INTERFACE SYSTEM 04/18/2005 5:00 AM DUAL RATE DEALER Cirilo Buenrostro MD CHEMISTRY ORDERABLES Sommer l Result Performing Organization Address [facility] Co de Phone Number INTERFACE SYSTEM Refer to clinic/hospital department * (ABNORMAL) POC GLUCOSE (04/17/2005 9:10 PM DUAL RATE DEALER) GLUCOSE POC 261(H) 65 - 109 mg/dL INTERFACE SYSTEM 04/17/2005 9:10 PM DUAL RATE DEALER Cirilo Buenrostro MD POINT OF CARE TESTING Fin al Result Performing Organization Address [facility] de Phone Number INTERFACE SYSTEM Refer to clinic/hospital department * (ABNORMAL) CVR ONLY, CKMB/CK (04/17/2005 7:39 PM DUAL RATE DEALER) CKMB 7.5(AA) <=3.8 ng/mL INTERFACE SYSTEM Comment:Persistent abnormal result CKMB INTERP See Below INTERFAC E SYSTEM Comment:Elevated CKMB,consis tent with Myocardial Injury CK 339(H) 10 - 145 U/L INTERFACE SYSTEM CARDIAC RELATIVE INDEX 2.2 <=4.0 INTERFACE SYSTEM 04/17/2005 7:39 PM DUAL RATE DEALER Max Jhaveri MD CHEMISTRY ORDERABLES Final Re sult Performing Organization Address [facility] Phone Number INTERFACE SYSTEM Refer to clinic/hospital department * (ABNORMAL) POC GLUCOSE (04/17/2005 4:50 PM DUAL RATE DEALER) GLUCOSE POC 228(H) 65 - 109 mg/dL INTERFACE SYSTEM 04/17/2005 4:50 PM DUAL RATE DEALER Cirilo Buenrostro MD POINT OF CARE TESTING Fin al Result Performing Organization Address [facility] de Phone Number INTERFACE SYSTEM Refer to clinic/hospital department * (ABNORMAL) POC GLUCOSE (04/17/2005 11:06 AM DUAL RATE DEALER) GLUCOSE POC 141(H) 65 - 109 mg/dL INTERFACE SYSTEM 04/17/2005 11:0 6 AM DUAL RATE DEALER Cirilo Buenrostro MD POINT OF CARE TESTING Fin al Result Performing Organization Address [facility] de Phone Number INTERFACE SYSTEM Refer to clinic/hospital department * (ABNORMAL) POC GLUCOSE (04/17/2005 6:13 AM DUAL RATE DEALER) GLUCOSE POC 115(H) 65 - 109 mg/dL INTERFACE SYSTEM 04/17/2005 6:13 AM DUAL RATE DEALER Cirilo Buenrostro MD POINT OF CARE TESTING Fin al Result Performing Organization Address [facility] de Phone Number INTERFACE SYSTEM Refer to clinic/hospital department * POC GLUCOSE (04/17/2005 4:45 AM DUAL RATE DEALER) GLUCOSE POC 99 65 - 109 mg/dL INTERFACE SYSTEM 04/17/2005 4:45 AM DUAL RATE DEALER Cirilo Buenrostro MD POINT OF CARE TESTING Fin al Result Performing Organization Address [facility] Phone Number INTERFACE SYSTEM Refer to clinic/hospital department * (ABNORMAL) CBC WITH DIFFERENTIAL (04/17/2005 4:23 AM DUAL RATE DEALER) NEUTROPHILS 83(H) 45 - 70 % INTERFAC [...] 0.20 K/uL INTERFACE SYSTEM 04/17/2005 4:23 AM DUAL RATE DEALER Max Jhaveri MD HEMATOLOGY ORDERABLES Final R esult Performing Organization Address [facility] de Phone Number INTERFACE SYSTEM Refer to clinic/hospital department * (ABNORMAL) CBC WITH DIFFERENTIAL (04/17/2005 4:23 AM DUAL RATE DEALER) WBC 8.5 4.0 - 9.8 K/uL INTERFACE [...] 12.4 fL INTERFACE SYSTEM 04/17/2005 4:23 AM DUAL RATE DEALER Max Jhaveri MD HEMATOLOGY ORDERABLES Final R esult Performing Organization Address [facility] Phone Number INTERFACE SYSTEM Refer to clinic/hospital department * MAGNESIUM LEVEL (04/17/2005 4:23 AM DUAL RATE DEALER) MAGNESIUM 1.8 1.5 - 2.5 mg/dL INTERFACE SYSTEM 04/17/2005 4:23 AM DUAL RATE DEALER Max Jhaveri MD CHEMISTRY ORDERABLES Final Re sult Performing Organization Address [facility] Phone Number INTERFACE SYSTEM Refer to clinic/hospital department * (ABNORMAL) PT AND APTT (04/17/2005 4:23 AM DUAL RATE DEALER) PROTIME 16.4(H) 12.7 - 15.1 Seconds INTERFACE SYSTEM INR 1.2(H) 0.9 - 1.1 INTERFACE SYSTEM Comment: INR Therapeutic Range: Adult: 2.0 - 3.0 for pulmonary embolism or prophylaxis against venous thrombosis or systemic embolization. 2.0 - 3.0 for patients with tissue heart valves. 2.5 - 3.5 for patients with mechanical heart valves or post CA. Pediatric (12 years and under): 1.5 - [...] range for unfractionated heparin 04/17/2005 4:23 AM DUAL RATE DEALER Max Jhaveri MD HEMATOLOGY ORDERABLES Final R esult Performing Organization Address [facility]/ZIP Co de Phone Number INTERFACE SYSTEM Refer to clinic/hospital department * (ABNORMAL) COMPREHENSIVE METABOLIC PANEL (04/17/2005 4:23 AM DUAL RATE DEALER) GLUCOSE 101 65 - 109 mg/dL INTERFACE [...] 30 mmol/L INTERFACE SYSTEM 04/17/2005 4:23 AM DUAL RATE DEALER Max Jhaveri MD CHEMISTRY ORDERABLES Final Re sult Performing Organization Address [facility]/ZIP Co de Phone Number INTERFACE SYSTEM Refer to clinic/hospital department * (ABNORMAL) POC GLUCOSE (04/17/2005 1:59 AM DUAL RATE DEALER) GLUCOSE POC 134(H) 65 - 109 mg/dL INTERFACE SYSTEM 04/17/2005 1:59 AM DUAL RATE DEALER Cirilo Buenrostro MD POINT OF CARE TESTING Fin al Result Performing Organization Address [facility] Phone Number INTERFACE SYSTEM Refer to clinic/hospital department * (ABNORMAL) HEMOGLOBIN AND HEMATOCRIT (04/17/2005 1:00 AM DUAL RATE DEALER) HEMOGLOBIN 11.8 11.8 - 14.8 g/dL INTERFACE SYSTEM HEMATOCRIT 35.3(L) 35.5 - 44.0 % INTERFACE SYSTEM 04/17/2005 1:00 AM DUAL RATE DEALER Max Jhaveri MD HEMATOLOGY ORDERABLES Final R esult Performing Organization Address [facility] Phone Number INTERFACE SYSTEM Refer to clinic/hospital department * POTASSIUM LEVEL (04/17/2005 1:00 AM DUAL RATE DEALER) Pathologist [facility] POTASSIUM 4.1 3.5 - 4.9 mmol/L INTERFACE SYSTEM 04/17/2005 1:00 AM DUAL RATE DEALER Max Jhaveri MD CHEMISTRY ORDERABLES Final Re sult Performing Organization Address [facility] Phone Number INTERFACE SYSTEM Refer to clinic/hospital department * (ABNORMAL) CVR ONLY, CKMB/CK (04/17/2005 1:00 AM DUAL RATE DEALER) CKMB 22.5(AA) <=3.8 ng/mL INTERFACE SYSTEM Comment:Persistent abnormal result CKMB INTERP See Below INTERFAC E SYSTEM Comment:Elevated CKMB,consis tent with Myocardial Injury CK 325(H) 10 - 145 U/L INTERFACE SYSTEM CARDIAC RELATIVE INDEX 6.9(H) <=4.0 INTERFACE SYSTEM 04/17/2005 1:00 AM DUAL RATE DEALER Max Jhaveri MD CHEMISTRY ORDERABLES Final Re sult Performing Organization Address [facility]/ZIP Co de Phone Number INTERFACE SYSTEM Refer to clinic/hospital department * (ABNORMAL) POC GLUCOSE (04/17/2005 12:53 AM DUAL RATE DEALER) GLUCOSE POC 145(H) 65 - 109 mg/dL INTERFACE SYSTEM 04/17/2005 12:5 3 AM DUAL RATE DEALER Cirilo Buenrostro MD POINT OF CARE TESTING Fin al Result Performing Organization Address [facility] de Phone Number INTERFACE SYSTEM Refer to clinic/hospital department * (ABNORMAL) POC GLUCOSE (04/16/2005 11:21 PM DUAL RATE DEALER) GLUCOSE POC 160(H) 65 - 109 mg/dL INTERFACE SYSTEM 04/16/2005 11:2 1 PM DUAL RATE DEALER Cirilo Buenrostro MD POINT OF CARE TESTING Fin al Result Performing Organization Address [facility] de Phone Number INTERFACE SYSTEM Refer to clinic/hospital department * (ABNORMAL) POC GLUCOSE (04/16/2005 10:17 PM DUAL RATE DEALER) GLUCOSE POC 159(H) 65 - 109 mg/dL INTERFACE SYSTEM 04/16/2005 10:1 7 PM DUAL RATE DEALER Cirilo Buenrostro MD POINT OF CARE TESTING Fin al Result Performing Organization Address [facility] de Phone Number INTERFACE SYSTEM Refer to clinic/hospital department * (ABNORMAL) POC GLUCOSE (04/16/2005 9:29 PM DUAL RATE DEALER) GLUCOSE POC 178(H) 65 - 109 mg/dL INTERFACE SYSTEM 04/16/2005 9:29 PM DUAL RATE DEALER Cirilo Buenrostro MD POINT OF CARE TESTING Fin al Result Performing Organization Address [facility] de Phone Number INTERFACE SYSTEM Refer to clinic/hospital department * (ABNORMAL) POC RT, BLOOD GASES (04/16/2005 8:45 PM DUAL RATE DEALER) PH ARTERIAL 7.40 7.35 - 7.45 INTERFACE [...] RN AWARE INTERFACE SYSTEM 04/16/2005 8:45 PM DUAL RATE DEALER Cirilo Buenrostro MD CHEMISTRY ORDERABLES Sommer l Result Performing Organization Address [facility] Co de Phone Number INTERFACE SYSTEM Refer to clinic/hospital department * (ABNORMAL) POC GLUCOSE (04/16/2005 8:26 PM DUAL RATE DEALER) GLUCOSE POC 190(H) 65 - 109 mg/dL INTERFACE SYSTEM 04/16/2005 8:26 PM DUAL RATE DEALER Cirilo Buenrostro MD POINT OF CARE TESTING Fin al Result Performing Organization Address [facility] de Phone Number INTERFACE SYSTEM Refer to clinic/hospital department * POTASSIUM LEVEL (04/16/2005 8:00 PM DUAL RATE DEALER) POTASSIUM 3.8 3.5 - 4.9 mmol/L INTERFACE SYSTEM Comment: Testing was performed on Serum. Specimen of choice is [place] Heparinized Plasma. Serum Potassium Reference Range: 5 years - 150 years 3.5 - 5.0 mmol/L 1 year - 5 years 3.4 - 4.7 mmol/L 15 days - 1 year 4.1 - 5.3 mmol/L 0 days - 15 days 3.7 - 5.9 mmol/L 04/16/2005 8:00 PM DUAL RATE DEALER Max Jhaveri MD CHEMISTRY ORDERABLES Final Re sult Performing Organization Address [facility] Phone Number INTERFACE SYSTEM Refer to clinic/hospital department * MAGNESIUM LEVEL (04/16/2005 8:00 PM DUAL RATE DEALER) MAGNESIUM 2.1 1.5 - 2.5 mg/dL INTERFACE SYSTEM 04/16/2005 8:00 PM DUAL RATE DEALER Max Jhaveri MD CHEMISTRY ORDERABLES Final Re sult Performing Organization Address [facility] Phone Number INTERFACE SYSTEM Refer to clinic/hospital department * (ABNORMAL) POC GLUCOSE (04/16/2005 7:51 PM DUAL RATE DEALER) GLUCOSE POC 186(H) 65 - 109 mg/dL INTERFACE SYSTEM 04/16/2005 7:51 PM DUAL RATE DEALER Cirilo Buenrostro MD POINT OF CARE TESTING Fin al Result Performing Organization Address [facility] Phone Number INTERFACE SYSTEM Refer to clinic/hospital department * (ABNORMAL) POC GLUCOSE (04/16/2005 6:31 PM DUAL RATE DEALER) GLUCOSE POC 167(H) 65 - 109 mg/dL INTERFACE SYSTEM 04/16/2005 6:31 PM DUAL RATE DEALER Cirilo Buenrostro MD POINT OF CARE TESTING Fin al Result Performing Organization Address [facility] de Phone Number INTERFACE SYSTEM Refer to clinic/hospital department * (ABNORMAL) POC GLUCOSE (04/16/2005 5:36 PM DUAL RATE DEALER) GLUCOSE POC 148(H) 65 - 109 mg/dL INTERFACE SYSTEM 04/16/2005 5:36 PM DUAL RATE DEALER Cirilo Buenrostro MD POINT OF CARE TESTING Fin al Result Performing Organization Address [facility] de Phone Number INTERFACE SYSTEM Refer to clinic/hospital department * (ABNORMAL) POC GLUCOSE (04/16/2005 4:19 PM DUAL RATE DEALER) GLUCOSE POC 143(H) 65 - 109 mg/dL INTERFACE SYSTEM 04/16/2005 4:19 PM DUAL RATE DEALER Cirilo Buenrostro MD POINT OF CARE TESTING Fin al Result Performing Organization Address [facility] de Phone Number INTERFACE SYSTEM Refer to clinic/hospital department * (ABNORMAL) POC RT, BLOOD GASES (04/16/2005 4:05 PM DUAL RATE DEALER) PH ARTERIAL 7.44 7.35 - 7.45 INTERFACE [...] RN NOTIFIED INTERFACE SYSTEM 04/16/2005 4:05 PM DUAL RATE DEALER Cirilo Buenrostro MD CHEMISTRY ORDERABLES Sommer l Result Performing Organization Address [facility] Co de Phone Number INTERFACE SYSTEM Refer to clinic/hospital department * (ABNORMAL) CVR ONLY, CKMB/CK (04/16/2005 3:57 PM DUAL RATE DEALER) CKMB 28.2(AA) <=3.8 ng/mL INTERFACE SYSTEM Comment:Results called to ba rb at 04/16/2005 4:50 PM and read back verified. CKMB INTERP See Below INTERFAC E SYSTEM Comment:Elevated CKMB,consis tent with Myocardial Injury. CK 234(H) 10 - 145 U/L INTERFACE SYSTEM CARDIAC RELATIVE INDEX 12.0(H) <=4.0 INTERFACE SYSTEM 04/16/2005 3:57 PM DUAL RATE DEALER Max Jhaveri MD CHEMISTRY ORDERABLES Final Re sult Performing Organization Address [facility] Phone Number INTERFACE SYSTEM Refer to clinic/hospital department * (ABNORMAL) CBC WITH DIFFERENTIAL (04/16/2005 3:57 PM DUAL RATE DEALER) NEUTROPHILS 77(H) 45 - 70 % INTERFAC [...] 0.20 K/uL INTERFACE SYSTEM 04/16/2005 3:57 PM DUAL RATE DEALER Max Jhaveri MD HEMATOLOGY ORDERABLES Final R esult Performing Organization Address [facility] de Phone Number INTERFACE SYSTEM Refer to clinic/hospital department * (ABNORMAL) CBC WITH DIFFERENTIAL (04/16/2005 3:57 PM DUAL RATE DEALER) WBC 8.3 4.0 - 9.8 K/uL INTERFACE [...] 12.4 fL INTERFACE SYSTEM 04/16/2005 3:57 PM DUAL RATE DEALER Max Jhaveri MD HEMATOLOGY ORDERABLES Final R esult Performing Organization Address [facility] Phone Number INTERFACE SYSTEM Refer to clinic/hospital department * (ABNORMAL) PT AND APTT (04/16/2005 3:57 PM DUAL RATE DEALER) PROTIME 17.9(H) 12.7 - 15.1 Seconds INTERFACE SYSTEM INR 1.4(H) 0.9 - 1.1 INTERFACE SYSTEM Comment: INR Therapeutic Range: Adult: 2.0 - 3.0 for pulmonary embolism or prophylaxis against venous thrombosis or systemic embolization. 2.0 - 3.0 for patients with tissue heart valves. 2.5 - 3.5 for patients with mechanical heart valves or post CA. Pediatric (12 years and under): 1.5 - [...] range for unfractionated heparin 04/16/2005 3:57 PM DUAL RATE DEALER Max Jhaveri MD HEMATOLOGY ORDERABLES Final R esult Performing Organization Address [facility] de Phone Number INTERFACE SYSTEM Refer to clinic/hospital department * MAGNESIUM LEVEL (04/16/2005 3:57 PM DUAL RATE DEALER) MAGNESIUM 1.9 1.5 - 2.5 mg/dL INTERFACE SYSTEM 04/16/2005 3:57 PM DUAL RATE DEALER Max Jhaveri MD CHEMISTRY ORDERABLES Final Re sult Performing Organization Address [facility] Phone Number INTERFACE SYSTEM Refer to clinic/hospital department * (ABNORMAL) BASIC METABOLIC PANEL (04/16/2005 3:57 PM DUAL RATE DEALER) GLUCOSE 142(H) 65 - 109 mg/dL INTERFACE [...] and redraw if necessary. 04/16/2005 3:57 PM DUAL RATE DEALER Max Jhaveri MD CHEMISTRY ORDERABLES Final Re sult Performing Organization Address [facility] Phone Number INTERFACE SYSTEM Refer to clinic/hospital department * LIPID PANEL (04/16/2005 6:10 AM DUAL RATE DEALER) LIPID PANEL COMMENT See below INTERFACE SYSTEM [...] section for risk classifications. 04/16/2005 6:10 AM DUAL RATE DEALER Cirilo Buenrostro MD CHEMISTRY ORDERABLES Sommer l Result Performing Organization Address [facility] Phone Number INTERFACE SYSTEM Refer to clinic/hospital department * (ABNORMAL) URINALYSIS (04/15/2005 4:23 PM DUAL RATE DEALER) COLOR UA Yellow INTERFACE SYSTEM CLARITY UA [...] Seen /HPF INTERFACE SYSTEM 04/15/2005 4:23 PM DUAL RATE DEALER Cirilo Buenrostro MD URINE ORDERABLES Final Re sult Performing Organization Address [facility] Phone Number INTERFACE SYSTEM Refer to clinic/hospital department * BASIC METABOLIC PANEL PLUS (04/15/2005 12:40 PM DUAL RATE DEALER) AST 21 12 - 32 U/L INTERFACE SYSTEM ALKALINE PHOSPHATASE 65 35 - 104 U/L INTERFACE SYSTEM BILIRUBIN TOTAL 0.3 0.2 - 1.0 mg/dL INTERFACE SYSTEM ALBUMIN 4.0 3.4 - 4.8 g/dL INTERFACE SYSTEM TOTAL PROTEIN 7.3 6.3 - 8.6 g/dL INTERFACE SYSTEM ALT 20 0 - 31 U/L INTERFACE SYSTEM 04/15/2005 12:4 0 PM DUAL RATE DEALER Ciriol Buenrostro MD CHEMISTRY ORDERABLES Sommer l Result Performing Organization Address [facility] de Phone Number INTERFACE SYSTEM Refer to clinic/hospital department * CBC WITH DIFFERENTIAL (04/15/2005 12:40 PM DUAL RATE DEALER) NEUTROPHILS 56 45 - 70 % INTERFAC [...] K/uL INTERFACE SYSTEM 04/15/2005 12:4 0 PM DUAL RATE DEALER Cirilo Buenrostro MD HEMATOLOGY ORDERABLES Fin al Result Performing Organization Address [facility] de Phone Number INTERFACE SYSTEM Refer to clinic/hospital department * (ABNORMAL) CBC WITH DIFFERENTIAL (04/15/2005 12:40 PM DUAL RATE DEALER) WBC 3.7(L) 4.0 - 9.8 K/uL INTERFACE [...] fL INTERFACE SYSTEM 04/15/2005 12:4 0 PM DUAL RATE DEALER Cirilo Buenrostro MD HEMATOLOGY ORDERABLES Fin al Result Performing Organization Address City/[facility] de Phone Number INTERFACE SYSTEM Refer to clinic/hospital department * PT AND APTT (04/15/2005 12:40 PM DUAL RATE DEALER) PROTIME 14.8 12.7 - 15.1 Seconds INTERFACE SYSTEM INR 1.1 0.9 - 1.1 INTERFACE SYSTEM Comment: INR Therapeutic Range: Adult: 2.0 - 3.0 for pulmonary embolism or prophylaxis against venous thrombosis or systemic embolization. 2.0 - 3.0 for patients with tissue heart valves. 2.5 - 3.5 for patients with mechanical heart valves or post CA. Pediatric (12 years and under): 1.5 - [...] for unfractionated heparin 04/15/2005 12:4 0 PM DUAL RATE DEALER Cirilo Buenrostro MD HEMATOLOGY ORDERABLES Fin al Result Performing Organization Address [facility] de Phone Number INTERFACE SYSTEM Refer to clinic/hospital department * (ABNORMAL) BASIC METABOLIC PANEL (04/15/2005 12:40 PM DUAL RATE DEALER) GLUCOSE 145(H) 65 - 109 mg/dL INTERFACE [...] mmol/L INTERFACE SYSTEM 04/15/2005 12:4 0 PM DUAL RATE DEALER us Cirilo Buenrostro MD CHEMISTRY ORDERABLES Sommer avila Result INTERFACE SYSTEM Refer to clinic/hospital department documented in this encounter Visit Diagnoses Diagnosis Coronary atherosclerosis of [place] coronary artery- Primary documented in this encounter
--- OUTSIDE RECORDS SUMMARY | 2024-07-18 13:40 | XMS_ITS | Clinical Summary ---
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
--- OUTSIDE RECORDS SUMMARY | 2024-07-18 13:40 | XMS_ITS | Clinical Summary ---
Author Organization [facility] Address [address] [place] [address] Care Team Providers Care Rn Staff Name Role Phone Franco Randolph MD Unavailable [phone] Ernestina Luevano MD Primary Care Provider + Cirilo Buenrostro MD Unavailable [phone] Source Comments [facility],non-owned Affiliates and Associated Physician Practices is amultiple site organization consisting of ambulatory clinics and hospital sitesin [place], [place], [place] and [place]. This disclosure is being madepursuant to the Care Everywhere program and may not contain all information available regarding this patient. Last updated 17.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 [address]AL [address] FORMS Gender Identity Not on file Sexual Orientation [...] this topic Medical Devices Implanted Type Area Election Supervisor Device Identifier Shelf Expiration Date Model / Serial / Lot Cmnt Bone Djo Srg Cblt 40gm Hvisc Strl Implanted:Qty: 1 on 08/17/2022 by Franco Randolph MD at [facility] Left: Knee [employer] 11/27/2023 600-15-000 / / [id number] Cmpnt Ptlr Std 28mm 3 Pg Kn Ser A Implanted:Qty: 1 on 08/17/2022 by Franco Randolph MD at [facility] Left: Knee [employer] 05/07/2027 [id number] / / [id number] Tray Tib 75mm Kn Cocr I Beam Implanted:Qty: 1 on 08/17/2022 by Franco Randolph MD at [facility] Left: Knee [employer] 08/24/2031 [id number] / / [id number] Cmpnt Fem Kn Lt Cr Cmnt Prm Vngrd Intlk 67.5 Mm Implanted:Qty: 1 on 08/17/2022 by Franco Randolph MD at [facility] Left: Knee [employer] 06/02/2032 [id number] / / [id number] Brng [id number] Vngrd Arcm Kn Ant Stab Implanted:Qty: 1 on 08/17/2022 by Franco Randolph MD at [facility] Left: Knee [employer] 05/22/2027 [id number] / / [id number] Procedures Procedure Name Priority Date/Time Associated Diagnosis [...] MD LAB - CHEMISTRY ORDERABLES Final Result [facility] [address] [place] [address] from Last 3 Months or Most Recently Relevant to Health Maintenance Insurance [place] [id number] MEDICARE HEALTHLINK [place] [id number] HEALTHLINK SELF PAY NO INSURANCE Member Subscriber Plan / Payer (Ef fective for All Dates) Name:Ana M Childress Member ID:Not on file Relation to Subscriber:Not on file Name:ANA M CHILDRESS Subscriber ID:Not on file (Home) Address: [address] [place] [address] [place] [address] Payer ID:Not on file Group ID:Not on file Type:Self Pay Address: [place], [place] [address] Advance Directives * Full Code (Latest Code Status on File) Date Activated Date Inactivated Comments 08/17/2022 1:40 PM 08/18/2022 4:20 PM Care Teams Rn Staff Relationship Specialty Start Date End Date Ernestina Luevano MD [address] [place] [address] PCP - General Family Medicine 06/03/22 [place] [address] [place] [address] Orthopedic Surgery 08/27/17 Cirilo Buenrostro MD [address] [place] [address] Assistant Professor Of Biochemistry Cardiology 08/12/22
--- NOTE | 2024-07-18 13:55 | PC.NURSE ---
Lab called to add on ordered troponin
[2024-07-18 14:28] LABS: Troponin I 0.013 ng/mL (0.000-0.034)
[2024-07-18 14:36] LABS: Lactic Acid Reflex 1.4 mmol/L (0.7-2.0)
== END 2024-07-18 15:03 ==
PROVIDERS: Emergency Provider Emergency Medicine; PCP Family Medicine
DX: R10.9 Unspecified abdominal pain (principal); I50.9 Heart failure, unspecified; I25.10 Atherosclerotic heart disease of native coronary artery without angina pectoris; I10 Essential (primary) hypertension; I25.2 Old myocardial infarction; I25.5 Ischemic cardiomyopathy; E11.319 Type 2 diabetes mellitus with unspecified diabetic retinopathy without macular edema; E11.40 Type 2 diabetes mellitus with diabetic neuropathy, unspecified; E78.5 Hyperlipidemia, unspecified; Z86.73 Personal history of transient ischemic attack (TIA), and cerebral infarction without residual deficits; Z87.442 Personal history of urinary calculi; Z98.49 Cataract extraction status, unspecified eye; Z95.1 Presence of aortocoronary bypass graft; Z90.710 Acquired absence of both cervix and uterus; Z90.79 Acquired absence of other genital organ(s); Z90.722 Acquired absence of ovaries, bilateral; Z79.899 Other long term (current) drug therapy; Z79.4 Long term (current) use of insulin; Z79.01 Long term (current) use of anticoagulants
CPT/HCPCS: 36415; 74177; 80053; 81003; 83605; 83690; 84484; 85025; 93005; 99284; Q9967

== ENCOUNTER 2024-08-15 10:16 | Emergency (ER) | payer MEDICARE, OTHER, SELFPAY ==
[2024-08-15] VITALS (14 sets, daily range): BP systolic 130–162; BP diastolic 41–89; PULSE 42–56; RESP 16–27; TEMP 36.7; O2SAT 91–100
--- NOTE | ~2024-08-15 | XR_ITS ---
XR chest 1V portable Ordering provider: Chung Locke MD History: 79 years Female with . sob . Comparison: May 17, 2024 FINDINGS: MEDIASTINUM: The cardiac silhouette is moderately enlarged. Postoperative changes in the mediastinum. LUNGS: No infiltrates, effusions or pneumothorax. Prominent bronchovascular markings in the lower lob es. OTHER: No free air under the diaphragm. Degenerative changes of the spine. IMPRESSION: Cardiomegaly. Prominent bronchovascular markings in the lower lobes. Otherwise,No acute lung lesion. Reviewed, dictated and finalized at location A.
--- NOTE | 2024-08-15 10:23 | ECG_ITS ---
Test Date: 2024-08-15 10:28:06 Measurements Intervals [place] Rate: 45 P: 0 MN: 0 QRS: 15 QRSD: 152 T: -12 QT: 503 QTc: 436 Interpretive Statements SINUS BRADYCARDIA RIGHT BUNDLE BRANCH BLOCK [120+ ms QRS DURATION, UPRIGHT V1, 40+ ms S IN I/aVL/V4/V5/V6] Compared to ECG 07/18/2024 14:04:04 SINUS BRADYCARDIA NOW PRESENT Electronically Signed On 08-15-2024 15:02:36 CDT by Shala Betancur M.D.
--- OUTSIDE RECORDS SUMMARY | 2024-08-15 10:32 | XMS_ITS | Referral Summary ---
Author Organization [facility] [address] Address [address] [place] [address] Care Team Providers Care Metal Fitters And Machinists Name Role Phone Catalina Mejia MD Primary Care Provider [phone] Josef Groves MD Unavailable [phone] Allergies No known active allergies Medications [...] flash glucose scanning reader (FreeStyle Haritha 2 [employer]) [facility] USE DIRECTED 1 [...] (07/22/2020): Added automatically from request for surgery [id number] Chronic cholecystitis with calculus 03/27/2020 Calculus of gallbladder with chronic cholecystitis without obstruction 03/27/2020 Overview (03/27/2020): Added automatically from request for surgery [id number] Type 2 diabetes mellitus wit h hyperglycemia, with long-term current use of insulin ([facility]) 07/15/2017 Assessment & Plan (08/11/2022 [...] provided as she was driving back to [place]. Instructed not to drive until all 8 [...] rosuvastatin Assessment & Plan (05/27/2022 5:14 PM BRAILLE TRANSCRIBER): This is a chronic condition which is [...] care discussed. Coronary artery disease invo lving [place] coronary artery of [place] heart without angina pectoris 01/28/2017 Hx [...] prescribed. Assessment & Plan (05/27/2022 5:15 PM BRAILLE TRANSCRIBER): This is a chronic condition. goal - LDL less than 70 Continue rosuvastatin. Encouraged to eat healthy, include fresh fruits and vegetables daily and avoid eating fried foods more than once per week. Encouraged to take medications as prescribed. Repeat lipid panel ordered. Assessment & Plan (03/11/2018 8:31 AM BRAILLE TRANSCRIBER): Continue statin and follow up with cardiology [...] prescribed. Assessment & Plan (05/27/2022 5:15 PM BRAILLE TRANSCRIBER): This is a chronic condition which is [...] ARB Assessment & Plan (03/11/2018 8:31 AM BRAILLE TRANSCRIBER): Controlled on current medications. Assessment & Plan [...] (10/05/2017): Added automatically from request for surgery [id number] Cellulitis of left lower extremity 12/28/2016 04/03/2020 [...] goal hba1c is under 7.0 to prevent long-term diabetes complications ( eye , kidney and [...] Farxiga. Assessment & Plan (03/11/2018 8:30 AM BRAILLE TRANSCRIBER): A1c is 9.5. Increase Levemir to 34 [...] goal hba1c is under 7.0 to prevent terminal makeup operator diabetes complications ( eye , kidney [...] on file Legal Sex Female 10:56 AM BRAILLE TRANSCRIBER Gender Identity Not on file Sexual Orientation Not on file Last Filed Vital Signs Vital Sign Reading Time Taken Comments Blood Pressure 118/64 08/11/2022 4:01 PM CDT Pulse 65 05/26/2022 2:15 PM BRAILLE TRANSCRIBER Temperature 36.3 C (97.3 F) 09/16/2020 8:32 AM CDT Respiratory Rate 15 09/16/2020 9:28 AM CDT Oxygen Saturation 97% 05/26/2022 2:15 PM BRAILLE TRANSCRIBER Inhaled Oxygen Concentration - - Weight 81.2 kg (179 lb) 08/11/2022 4:01 PM CDT Height 162.6 cm (5' 4 ) 08/11/2022 4:01 PM CDT Body Mass Index 30.73 08/11/2022 4:01 PM CDT Plan of Treatment Not on file Procedures Procedure Name Priority Date/Time Associated Diagnosis Comments EGFR Routine 03/31/2024 10:51 AM BRAILLE TRANSCRIBER LIPID PANEL Routine 03/31/2024 10:51 AM BRAILLE TRANSCRIBER POCT HEMOGLOBIN A1C Routine 08/11/2022 4 :07 PM CDT Type 2 diabetes mellitus with hyperglycemia, with long-term current use of insulin (HCC) ALBUMIN CREATININE RATIO, URINE Routine 06/01/2022 8:10 AM BRAILLE TRANSCRIBER Type 2 diabetes mellitus with hyperglycemia, with long-term current use of insulin (HCC) COLONOSCOPY 09/16/2020 8:22 AM CDT from Last 3 Months or Most Recently Relevant to Health Maintenance Results * eGFR (03/31/2024 10:51 AM BRAILLE TRANSCRIBER) eGFR 82 >=60 mL/min/1. 73 m2 Comment: [...] reviewed 2021. Blood 03/31/2024 10:5 1 AM BRAILLE TRANSCRIBER 03/31/2024 5:14 PM BRAILLE TRANSCRIBER us Notinfile Unknown LAB BLOOD ORDERABLES Final Res ult [facility] [address] Department [place] [address] * Lipid panel (03/31/2024 10:51 AM BRAILLE TRANSCRIBER) Cholesterol 177 30 - 199 mg/dL Comment: [...] revised on 2017. Triglycerides 96 <=149 mg/dL [facility] Comment: Interpretive Data Ages < or = [...] revised on 2017. HDL 53 >=40 mg/dL [facility] Comment: Interpretive Data Ages < or = [...] on 2017. LDL, calculated 106 <=129 mg/dL [facility] Comment: Interpretive Data Ages < or = [...] revised on 2023. Non-HDL Cholesterol 124 mg/dL [facility] Comment: Interpretive Data Ages < or = [...] last revised on 2017. Chol/HDL ratio 3 [facility] Blood 03/31/2024 10:5 1 AM BRAILLE TRANSCRIBER 03/31/2024 2:12 PM BRAILLE TRANSCRIBER us Notinfile Unknown LAB BLOOD ORDERABLES Final Res ult [facility] [address] Department [place] [address] * POCT hemoglobin A1c (08/11/2022 4:07 PM CDT) Hemoglobin A1C, POC 7.2 % Blood 08/11/2022 4:07 PM CDT Yennifer Cosby NURSE EMERGENCY POINT OF CARE TEST ORDERABLES F inal Result * (ABNORMAL) Albumin Creatinine Ratio, Urine (06/01/2022 8:10 AM BRAILLE TRANSCRIBER) Albumin Ur 112.4 mg/L [facility] ([place]) Comment: Interpretive Data No reference range established. Current interpretive data was last revised 2018. Testing performed by: [facility], [address] [place] [address]., [id number] Creatinine Ur 107.2 mg/dL [facility] ([place] Comment: Interpretive Data No reference range established. Current interpretive data was last revised 2018. Testing performed by: [facility], [address] [place] [address]., [id number] Albumin Creatinine Ratio, Ur 105(H) 1 - 29 mg/g [facility] ([place]) Comment:Testing performed by : [facility], [address] [place] [address]., [id number] Urine 06/01/2022 8:10 AM BRAILLE TRANSCRIBER 06/01/2022 11:15 AM BRAILLE TRANSCRIBER Yennifer Cosby NURSE EMERGENCY LAB URINE ORDERABLES Final Resu lt [facility] ([place] [address] [facility] Department [place] [address] * COLONOSCOPY (09/16/2020 8:22 AM CDT) Anatomical Region Laterality Modality Other Narrative Procedure Note Danitza Sawyer MD - 09/16/2020 8:22 AM CDT ENDOSCOPY LAB Patient Name: Ana M Junior Procedure Date: 09/16/2020 8:22 AM Admit Type: Outpatient Room: [facility] 2 Date of : 1945 Instrument Name: [...] ofthe bowel preparation was evaluated using the BBPS([place] Bowel Preparation Scale) with scores of: RightColon [...] Most Recently Relevant to Health Maintenance Insurance [facility] [place] [address] [facility] [id number] [place] [address] [facility] MEDICARE HEALTHLINK OPEN ACCESS TeacherTube [facility] [id number] MEDICARE Advance Directives For more information, please contact: [phone] * Full Code (Latest Code Status on File) Date Activated Date Inactivated Comments 09/16/2020 7:53 AM 09/16/2020 1:51 PM * Full Code Date Activated Date Inactivated Comments 04/08/2020 8:07 PM 04/09/2020 3:48 PM * Full Code Date Activated Date Inactivated Comments 12/04/2019 7:00 AM 12/04/2019 1:23 PM * Full Code Date Activated Date Inactivated Comments 10/02/2019 11:59 AM 10/02/2019 5:31 PM Care Teams Metal Fitters And Machinists Relationship Specialty Start Date End Date Catalina Mejia MD [address] [place] [address] PCP - General Internal Medicine 09/05/19 Josef Groves MD [address] [place] [address] Consulting Physician General Surgery 04/08/20
--- OUTSIDE RECORDS SUMMARY | 2024-08-15 10:32 | XMS_ITS | Encounter Summary ---
Author Organization [facility] Address [address] [place] [address] Care Team Providers Care Joint Filler Name Role Phone Unavailable Primary Care Provider Unavailabl e Encounter Details Date Type Department Care Team (Late st Contact Info) Description 04/15/2005 Outpatient Historical [facility] Cardiovas and Thor Surg at [facility] Heart [address] [address] Max Jhaveri MD [address] [place] [phone] Social History Tobacco Use Types Packs/Day Years Used Date Smoking Tobacco: Never Assessed Comments Unknown Sex and Gender Information Value Date Recorded Sex Assigned at Not on file Legal Sex Female 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
--- OUTSIDE RECORDS SUMMARY | 2024-08-15 10:32 | XMS_ITS | Clinical Summary ---
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
--- OUTSIDE RECORDS SUMMARY | 2024-08-15 10:32 | XMS_ITS | Encounter Summary ---
Author Organization [facility] Address [address] [place] [address] Care Team Providers Care Dye And Chemical Coordinator Name Role Phone Unavailable Primary Care Provider Unavailabl e Encounter Details Date Type Department Care Team (Late st Contact Info) Description 05/20/2005 Outpatient Historical [facility] Cardiovas and Thor Surg at [facility] Heart [address] [address] Max Jhaveri MD [address] [place] [phone] Social History Tobacco Use Types Packs/Day Years Used Date Smoking Tobacco: Never Assessed Comments Unknown Sex and Gender Information Value Date Recorded Sex Assigned at Not on file 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
--- OUTSIDE RECORDS SUMMARY | 2024-08-15 10:32 | XMS_ITS | Clinical Summary ---
Author Organization [facility] [address] Address [address] [place] [address] Care Team Providers Care Social Welfare Research Worker Name Role Phone Catalina Mejia MD Primary Care Provider + [phone] Josef Groves MD Unavailable [phone] Allergies No known active allergies Medications [...] flash glucose scanning reader ([employer] [address] [place]) [facility] USE DIRECTED 1 each 1 3 Active [...] (07/22/2020): Added automatically from request for surgery [id number] Chronic cholecystitis with calculus 03/27/2020 Calculus of gallbladder with chronic cholecystitis without obstruction 03/27/2020 Overview (03/27/2020): Added automatically from request for surgery [id number] Type 2 diabetes mellitus wit h hyperglycemia, with long-term current use of insulin ([facility]) 07/15/2017 Assessment & Plan (08/11/2022 4:37 PM [...] provided as she was driving back to [place]. Instructed not to drive until all 8 [...] rosuvastatin Assessment & Plan (05/27/2022 5:14 PM [employer]): This is a chronic condition which is [...] care discussed. Coronary artery disease invo lving circle coronary artery of circle heart without angina pectoris 01/28/2017 Hx of [...] prescribed. Assessment & Plan (05/27/2022 5:15 PM [employer]): This is a chronic condition. goal - LDL less than 70 Continue rosuvastatin. Encouraged to eat healthy, include fresh fruits and vegetables daily and avoid eating fried foods more than once per week. Encouraged to take medications as prescribed. Repeat lipid panel ordered. Assessment & Plan (03/11/2018 8:31 AM [employer]): Continue statin and follow up with cardiology [...] prescribed. Assessment & Plan (05/27/2022 5:15 PM [employer]): This is a chronic condition which is [...] ARB Assessment & Plan (03/11/2018 8:31 AM [employer]): Controlled on current medications. Assessment & Plan [...] (10/05/2017): Added automatically from request for surgery [id number] Cellulitis of left lower extremity 12/28/2016 04/03/2020 [...] goal hba1c is under 7.0 to prevent fdc diabetes complications ( eye , kidney and [...] Farxiga. Assessment & Plan (03/11/2018 8:30 AM [employer]): A1c is 9.5. Increase Levemir to 34 [...] hba1c is under 7.0 to prevent long term care administrator diabetes complications ( eye , kidney and [...] on file Legal Sex Female 10:56 AM [employer] Gender Identity Not on file Sexual Orientation Not on file Obstetrics History Last Filed Vital Signs Vital Sign Reading Time Taken Comments Blood Pressure 118/64 08/11/2022 4:01 PM CDT Pulse 65 05/26/2022 2:15 PM [employer] Temperature 36.3 C (97.3 F) 09/16/2020 8:32 AM CDT Respiratory Rate 15 09/16/2020 9:28 AM CDT Oxygen Saturation 97% 05/26/2022 2:15 PM [employer] Inhaled Oxygen Concentration - - Weight 81.2 [...] Diagnosis Comments EGFR Routine 03/31/2024 10:51 AM [employer] LIPID PANEL Routine 03/31/2024 10:51 AM [employer] POCT HEMOGLOBIN A1C Routine 08/11/2022 4 :07 PM CDT Type 2 diabetes mellitus with hyperglycemia, with long-term current use of insulin (HCC) ALBUMIN CREATININE RATIO, URINE Routine 06/01/2022 8:10 AM [employer] Type 2 diabetes mellitus with hyperglycemia, with long-term current use of insulin (HCC) COLONOSCOPY 09/16/2020 8:22 AM CDT from Last 3 Months or Most Recently Relevant to Health Maintenance Results * eGFR (03/31/2024 10:51 AM [employer]) eGFR 82 >=60 mL/min/1. 73 m2 Comment: [...] reviewed 2021. Blood 03/31/2024 10:5 1 AM [employer] 03/31/2024 5:14 PM [employer] us Notinfile Unknown LAB BLOOD ORDERABLES Final Res ult [facility] [address] [place] [address] * Lipid panel (03/31/2024 10:51 AM [employer]) Cholesterol 177 30 - 199 mg/dL Comment: [...] revised on 2017. Triglycerides 96 <=149 mg/dL [facility] Comment: Interpretive Data Ages < or = [...] revised on 2017. HDL 53 >=40 mg/dL [facility] Comment: Interpretive Data Ages < or = [...] on 2017. LDL, calculated 106 <=129 mg/dL [facility] Comment: Interpretive Data Ages < or = [...] revised on 2023. Non-HDL Cholesterol 124 mg/dL [facility] Comment: Interpretive Data Ages < or = [...] last revised on 2017. Chol/HDL ratio 3 [facility] Blood 03/31/2024 10:5 1 AM [employer] 03/31/2024 2:12 PM [employer] us Notinfile Unknown LAB BLOOD ORDERABLES Final Res ult [facility] [address] Department [place] [address] * POCT hemoglobin A1c (08/11/2022 4:07 PM CDT) Hemoglobin A1C, POC 7.2 % Blood 08/11/2022 4:07 PM CDT us Yennifer Cosby NP POINT OF CARE TEST ORDERABLES F inal Result * (ABNORMAL) Albumin Creatinine Ratio, Urine (06/01/2022 8:10 AM [employer]) Albumin Ur 112.4 mg/L [facility] ([place] Comment: Interpretive Data No reference range established. Current interpretive data was last revised 2018. Testing performed by: [facility], [address] [place] [address]., [id number] Creatinine Ur 107.2 mg/dL [facility] ([place]) Comment: Interpretive Data No reference range established. Current interpretive data was last revised 2018. Testing performed by: [facility], [address] [place] [address]., [id number] Albumin Creatinine Ratio, Ur 105(H) 1 - 29 mg/g [facility] ([place]) Comment:Testing performed by : [facility], [address] [place] [address]., [id number] Urine 06/01/2022 8:10 AM [employer] 06/01/2022 11:15 AM [employer] us Yennifer Cosby PATTERN CHAIN BUILDER LAB URINE ORDERABLES Final Resu lt [facility] (BLYTHE) [address] [facility] Department [place] [address] * COLONOSCOPY (09/16/2020 8:22 AM CDT) Anatomical Region Laterality Modality Other Narrative Procedure Note Danitza Sawyer MD - 09/16/2020 8:22 AM CDT ENDOSCOPY LAB Patient Name: Ana M Junior Procedure Date: 09/16/2020 8:22 AM Admit Type: Outpatient Room: [facility] Date of : 1945 Instrument [...] ofthe bowel preparation was evaluated using the BBPS([place] Bowel Preparation Scale) with scores of: RightColon [...] Recently Relevant to Health [place] [address] [facility] MEDICARE [facility] Address: [id number] [place] [address] [facility] [address] [place] [address] [facility] Quotations Book OPEN ACCESS [facility] [address] MEDICARE [facility] Address: [address] [address] [place] [address] Advance Directives For more information, please contact: [phone] * Full Code (Latest Code Status on File) Date Activated Date Inactivated Comments 09/16/2020 7:53 AM 09/16/2020 1:51 PM * Full Code Date Activated Date Inactivated Comments 04/08/2020 8:07 PM 04/09/2020 3:48 PM * Full Code Date Activated Date Inactivated Comments 12/04/2019 7:00 AM 12/04/2019 1:23 PM * Full Code Date Activated Date Inactivated Comments 10/02/2019 11:59 AM 10/02/2019 5:31 PM Care Teams Social Welfare Research Worker Relationship Specialty Start Date End Date Catalina Mejia MD [address] [place] [address] PCP - General Internal Medicine 09/05/19 Josef Groves MD [address] [place] [address] Consulting Physician General Surgery 04/08/20
--- OUTSIDE RECORDS SUMMARY | 2024-08-15 10:32 | XMS_ITS | Encounter Summary ---
Author Organization [facility] Address [address] [place] [address] Care Team Providers Care Tactical Deception Plans Officer Name Role Phone Unavailable Primary Care Provider Unavailabl e Encounter Details Date Type Department Care Team (Late st Contact Info) Description 04/15/2005 Outpatient Historical [facility] Blood Flow [address] [place] [address] Todd Chapin MD NO ADDRESS ON FILE Social History Tobacco Use Types Packs/Day Years Used Date Smoking Tobacco: Never Assessed Comments Unknown Sex and Gender Information Value Date Recorded Sex Assigned at Not on file Legal Sex Female 5:02 AM [employer]ATING [employer]PER[employer] Gender Identity Not on file Sexual Orientation Not on file documented as of this encounter Plan of Treatment Not on file documented as of this encounter Visit Diagnoses Not on filedocumented in this encounter
--- OUTSIDE RECORDS SUMMARY | 2024-08-15 10:32 | XMS_ITS | Encounter Summary ---
Author Organization [facility] Address 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 Max Jhaveri MD [address] [facility] [address] [place] [address] Cirilo Buenrostro MD [address] [facility] [address] [place] [id number] CORON ATHEROSCL [place] CORON VESSEL (Primary Dx) Social History Tobacco Use Types Packs/Day Years Used Date Smoking Tobacco: Never Assessed Comments Unknown Sex and Gender Information Value Date Recorded Sex Assigned at Not on file Legal Sex Female 5:02 AM REPEAT CHIEF Gender Identity Not on file Sexual Orientation Not on file documented as of this encounter Plan of Treatment Not on file documented as of this encounter Procedures Procedure Name Priority Date/Time Associated Diagnosis Comments POC GLUCOSE Routine 04/19/2005 5:35 AM REPEAT CHIEF POC GLUCOSE Routine 04/18/2005 9:01 PM REPEAT CHIEF POC GLUCOSE Routine 04/18/2005 4:37 PM REPEAT CHIEF POC GLUCOSE Routine 04/18/2005 11:10 AM REPEAT CHIEF POC GLUCOSE Routine 04/18/2005 5:32 AM REPEAT CHIEF CBC WITH DIFFERENTIAL Routine 04/18/2005 5:00 AM REPEAT CHIEF CBC WITH DIFFERENTIAL Routine 04/18/2005 5:00 AM REPEAT CHIEF BASIC METABOLIC PANEL Routine 04/18/2005 5:00 AM REPEAT CHIEF POC GLUCOSE Routine 04/17/2005 9:10 PM REPEAT CHIEF CVR ONLY, CKMB/CK Routine 04/17/2005 7:3 9 PM REPEAT CHIEF POC GLUCOSE Routine 04/17/2005 4:50 PM REPEAT CHIEF POC GLUCOSE Routine 04/17/2005 11:06 AM REPEAT CHIEF POC GLUCOSE Routine 04/17/2005 6:13 AM REPEAT CHIEF POC GLUCOSE Routine 04/17/2005 4:45 AM REPEAT CHIEF PT AND APTT Routine 04/17/2005 4:23 AM REPEAT CHIEF CBC WITH DIFFERENTIAL Routine 04/17/2005 4:23 AM REPEAT CHIEF CBC WITH DIFFERENTIAL Routine 04/17/2005 4:23 AM REPEAT CHIEF MAGNESIUM LEVEL Routine 04/17/2005 4:23 AM REPEAT CHIEF COMPREHENSIVE METABOLIC PANEL Routine 04/17/2005 4:23 AM REPEAT CHIEF POC GLUCOSE Routine 04/17/2005 1:59 AM REPEAT CHIEF CVR ONLY, CKMB/CK Routine 04/17/2005 1:0 0 AM REPEAT CHIEF HEMOGLOBIN AND HEMATOCRIT Routine 04/17/2005 1:00 AM REPEAT CHIEF POTASSIUM LEVEL Routine 04/17/2005 1:00 AM REPEAT CHIEF POC GLUCOSE Routine 04/17/2005 12:53 AM REPEAT CHIEF POC GLUCOSE Routine 04/16/2005 11:21 PM REPEAT CHIEF POC GLUCOSE Routine 04/16/2005 10:17 PM REPEAT CHIEF POC GLUCOSE Routine 04/16/2005 9:29 PM REPEAT CHIEF POC, BLOOD GASES Routine 04/16/2005 8:45 PM REPEAT CHIEF POC GLUCOSE Routine 04/16/2005 8:26 PM REPEAT CHIEF POTASSIUM LEVEL Routine 04/16/2005 8:00 PM REPEAT CHIEF MAGNESIUM LEVEL Routine 04/16/2005 8:00 PM REPEAT CHIEF POC GLUCOSE Routine 04/16/2005 7:51 PM REPEAT CHIEF POC GLUCOSE Routine 04/16/2005 6:31 PM REPEAT CHIEF POC GLUCOSE Routine 04/16/2005 5:36 PM REPEAT CHIEF POC GLUCOSE Routine 04/16/2005 4:19 PM REPEAT CHIEF POC, BLOOD GASES Routine 04/16/2005 4:05 PM REPEAT CHIEF CVR ONLY, CKMB/CK Routine 04/16/2005 3:5 7 PM REPEAT CHIEF PT AND APTT Routine 04/16/2005 3:57 PM REPEAT CHIEF CBC WITH DIFFERENTIAL Routine 04/16/2005 3:57 PM REPEAT CHIEF CBC WITH DIFFERENTIAL Routine 04/16/2005 3:57 PM REPEAT CHIEF MAGNESIUM LEVEL Routine 04/16/2005 3:57 PM REPEAT CHIEF BASIC METABOLIC PANEL Routine 04/16/2005 3:57 PM REPEAT CHIEF LIPID PANEL Routine 04/16/2005 6:10 AM REPEAT CHIEF URINALYSIS W/REFLEX MICROSCOPIC Routine 04/15/2005 4:23 PM REPEAT CHIEF BASIC METABOLIC PANEL PLUS Routine 04/15/2005 12:40 PM REPEAT CHIEF PT AND APTT Routine 04/15/2005 12:40 PM REPEAT CHIEF CBC WITH DIFFERENTIAL Routine 04/15/2005 12:40 PM REPEAT CHIEF CBC WITH DIFFERENTIAL Routine 04/15/2005 12:40 PM REPEAT CHIEF BASIC METABOLIC PANEL Routine 04/15/2005 12:40 PM REPEAT CHIEF documented in this encounter Results * (ABNORMAL) POC GLUCOSE (04/19/2005 5:35 AM REPEAT CHIEF) COMMENT, GLU POC Notified RN INTERFACE SYSTEM GLUCOSE POC 142(H) 65 - 109 mg/dL INTERFACE SYSTEM 04/19/2005 5:35 AM REPEAT CHIEF Cirilo Buenrostro MD POINT OF CARE TESTING Fin al Result Performing Organization Address [facility] de Phone Number INTERFACE SYSTEM Refer to clinic/hospital department * (ABNORMAL) POC GLUCOSE (04/18/2005 9:01 PM REPEAT CHIEF) COMMENT, GLU POC Notified RN INTERFACE SYSTEM GLUCOSE POC 221(H) 65 - 109 mg/dL INTERFACE SYSTEM 04/18/2005 9:01 PM REPEAT CHIEF Cirilo Buenrostro MD POINT OF CARE TESTING Fin al Result Performing Organization Address [facility] de Phone Number INTERFACE SYSTEM Refer to clinic/hospital department * (ABNORMAL) POC GLUCOSE (04/18/2005 4:37 PM REPEAT CHIEF) GLUCOSE POC 170(H) 65 - 109 mg/dL INTERFACE SYSTEM 04/18/2005 4:37 PM REPEAT CHIEF Cirilo Buenrostro MD POINT OF CARE TESTING Fin al Result Performing Organization Address [facility] de Phone Number INTERFACE SYSTEM Refer to clinic/hospital department * (ABNORMAL) POC GLUCOSE (04/18/2005 11:10 AM REPEAT CHIEF) COMMENT, GLU POC Notified RN INTERFACE SYSTEM GLUCOSE POC 220(H) 65 - 109 mg/dL INTERFACE SYSTEM 04/18/2005 11:1 0 AM REPEAT CHIEF Cirilo Buenrostro MD POINT OF CARE TESTING Fin al Result Performing Organization Address [facility] Phone Number INTERFACE SYSTEM Refer to clinic/hospital department * (ABNORMAL) POC GLUCOSE (04/18/2005 5:32 AM REPEAT CHIEF) GLUCOSE POC 193(H) 65 - 109 mg/dL INTERFACE SYSTEM 04/18/2005 5:32 AM REPEAT CHIEF Cirilo Buenrostro MD POINT OF CARE TESTING Fin al Result Performing Organization Address [facility] Phone Number INTERFACE SYSTEM Refer to clinic/hospital department * (ABNORMAL) CBC WITH DIFFERENTIAL (04/18/2005 5:00 AM REPEAT CHIEF) NEUTROPHIL ABSOLUTE 5.67 1.90 - 7.00 K/uL [...] Normal INTER FACE SYSTEM 04/18/2005 5:00 AM REPEAT CHIEF Cirilo Buenrostro MD HEMATOLOGY ORDERABLES Fin al Result Performing Organization Address [facility] Phone Number INTERFACE SYSTEM Refer to clinic/hospital department * (ABNORMAL) CBC WITH DIFFERENTIAL (04/18/2005 5:00 AM REPEAT CHIEF) WBC 7.0 4.0 - 9.8 K/uL INTERFACE [...] 12.4 fL INTERFACE SYSTEM 04/18/2005 5:00 AM REPEAT CHIEF Cirilo Buenrostro MD HEMATOLOGY ORDERABLES Fin al Result Performing Organization Address [facility] Phone Number INTERFACE SYSTEM Refer to clinic/hospital department * (ABNORMAL) BASIC METABOLIC PANEL (04/18/2005 5:00 AM REPEAT CHIEF) GLUCOSE 186(H) 65 - 109 mg/dL INTERFACE [...] 30 mmol/L INTERFACE SYSTEM 04/18/2005 5:00 AM REPEAT CHIEF Cirilo Buenrostro MD CHEMISTRY ORDERABLES Sommer l Result Performing Organization Address [facility] Co de Phone Number INTERFACE SYSTEM Refer to clinic/hospital department * (ABNORMAL) POC GLUCOSE (04/17/2005 9:10 PM REPEAT CHIEF) GLUCOSE POC 261(H) 65 - 109 mg/dL INTERFACE SYSTEM 04/17/2005 9:10 PM REPEAT CHIEF Cirilo Buenrostro MD POINT OF CARE TESTING Fin al Result Performing Organization Address [facility] de Phone Number INTERFACE SYSTEM Refer to clinic/hospital department * (ABNORMAL) CVR ONLY, CKMB/CK (04/17/2005 7:39 PM REPEAT CHIEF) CKMB 7.5(AA) <=3.8 ng/mL INTERFACE SYSTEM Comment:Persistent abnormal result CKMB INTERP See Below INTERFAC E SYSTEM Comment:Elevated CKMB,consis tent with Myocardial Injury CK 339(H) 10 - 145 U/L INTERFACE SYSTEM CARDIAC RELATIVE INDEX 2.2 <=4.0 INTERFACE SYSTEM 04/17/2005 7:39 PM REPEAT CHIEF Max Jhaveri MD CHEMISTRY ORDERABLES Final Re sult Performing Organization Address [facility] Phone Number INTERFACE SYSTEM Refer to clinic/hospital department * (ABNORMAL) POC GLUCOSE (04/17/2005 4:50 PM REPEAT CHIEF) GLUCOSE POC 228(H) 65 - 109 mg/dL INTERFACE SYSTEM 04/17/2005 4:50 PM REPEAT CHIEF Cirilo Buenrostro MD POINT OF CARE TESTING Fin al Result Performing Organization Address [facility] de Phone Number INTERFACE SYSTEM Refer to clinic/hospital department * (ABNORMAL) POC GLUCOSE (04/17/2005 11:06 AM REPEAT CHIEF) GLUCOSE POC 141(H) 65 - 109 mg/dL INTERFACE SYSTEM 04/17/2005 11:0 6 AM REPEAT CHIEF Cirilo Buenrostro MD POINT OF CARE TESTING Fin al Result Performing Organization Address [facility] de Phone Number INTERFACE SYSTEM Refer to clinic/hospital department * (ABNORMAL) POC GLUCOSE (04/17/2005 6:13 AM REPEAT CHIEF) GLUCOSE POC 115(H) 65 - 109 mg/dL INTERFACE SYSTEM 04/17/2005 6:13 AM REPEAT CHIEF Cirilo Buenrostro MD POINT OF CARE TESTING Fin al Result Performing Organization Address [facility] de Phone Number INTERFACE SYSTEM Refer to clinic/hospital department * POC GLUCOSE (04/17/2005 4:45 AM REPEAT CHIEF) GLUCOSE POC 99 65 - 109 mg/dL INTERFACE SYSTEM 04/17/2005 4:45 AM REPEAT CHIEF Cirilo Buenrostro MD POINT OF CARE TESTING Fin al Result Performing Organization Address [facility] Phone Number INTERFACE SYSTEM Refer to clinic/hospital department * (ABNORMAL) CBC WITH DIFFERENTIAL (04/17/2005 4:23 AM REPEAT CHIEF) NEUTROPHILS 83(H) 45 - 70 % INTERFAC [...] 0.20 K/uL INTERFACE SYSTEM 04/17/2005 4:23 AM REPEAT CHIEF Max Jhaveri MD HEMATOLOGY ORDERABLES Final R esult Performing Organization Address [facility] de Phone Number INTERFACE SYSTEM Refer to clinic/hospital department * (ABNORMAL) CBC WITH DIFFERENTIAL (04/17/2005 4:23 AM REPEAT CHIEF) WBC 8.5 4.0 - 9.8 K/uL INTERFACE [...] 12.4 fL INTERFACE SYSTEM 04/17/2005 4:23 AM REPEAT CHIEF Max Jhaveri MD HEMATOLOGY ORDERABLES Final R esult Performing Organization Address [facility] Phone Number INTERFACE SYSTEM Refer to clinic/hospital department * MAGNESIUM LEVEL (04/17/2005 4:23 AM REPEAT CHIEF) MAGNESIUM 1.8 1.5 - 2.5 mg/dL INTERFACE SYSTEM 04/17/2005 4:23 AM REPEAT CHIEF Max Jhaveri MD CHEMISTRY ORDERABLES Final Re sult Performing Organization Address [facility] Phone Number INTERFACE SYSTEM Refer to clinic/hospital department * (ABNORMAL) PT AND APTT (04/17/2005 4:23 AM REPEAT CHIEF) PROTIME 16.4(H) 12.7 - 15.1 Seconds INTERFACE SYSTEM INR 1.2(H) 0.9 - 1.1 INTERFACE SYSTEM Comment: INR Therapeutic Range: Adult: 2.0 - 3.0 for pulmonary embolism or prophylaxis against venous thrombosis or systemic embolization. 2.0 - 3.0 for patients with tissue heart valves. 2.5 - 3.5 for patients with mechanical heart valves or post MA. Pediatric (12 years and under): 1.5 - [...] range for unfractionated heparin 04/17/2005 4:23 AM REPEAT CHIEF Max Jhaveri MD HEMATOLOGY ORDERABLES Final R esult Performing Organization Address [facility]/ZIP Co de Phone Number INTERFACE SYSTEM Refer to clinic/hospital department * (ABNORMAL) COMPREHENSIVE METABOLIC PANEL (04/17/2005 4:23 AM REPEAT CHIEF) GLUCOSE 101 65 - 109 mg/dL INTERFACE [...] 30 mmol/L INTERFACE SYSTEM 04/17/2005 4:23 AM REPEAT CHIEF Max Jhaveri MD CHEMISTRY ORDERABLES Final Re sult Performing Organization Address [facility]/ZIP Co de Phone Number INTERFACE SYSTEM Refer to clinic/hospital department * (ABNORMAL) POC GLUCOSE (04/17/2005 1:59 AM REPEAT CHIEF) GLUCOSE POC 134(H) 65 - 109 mg/dL INTERFACE SYSTEM 04/17/2005 1:59 AM REPEAT CHIEF Cirilo Buenrostro MD POINT OF CARE TESTING Fin al Result Performing Organization Address [facility] Phone Number INTERFACE SYSTEM Refer to clinic/hospital department * (ABNORMAL) HEMOGLOBIN AND HEMATOCRIT (04/17/2005 1:00 AM REPEAT CHIEF) HEMOGLOBIN 11.8 11.8 - 14.8 g/dL INTERFACE SYSTEM HEMATOCRIT 35.3(L) 35.5 - 44.0 % INTERFACE SYSTEM 04/17/2005 1:00 AM REPEAT CHIEF Max Jhaveri MD HEMATOLOGY ORDERABLES Final R esult Performing Organization Address [facility] Phone Number INTERFACE SYSTEM Refer to clinic/hospital department * POTASSIUM LEVEL (04/17/2005 1:00 AM REPEAT CHIEF) Pathologist [facility] POTASSIUM 4.1 3.5 - 4.9 mmol/L INTERFACE SYSTEM 04/17/2005 1:00 AM REPEAT CHIEF Max Jhaveri MD CHEMISTRY ORDERABLES Final Re sult Performing Organization Address [facility] Phone Number INTERFACE SYSTEM Refer to clinic/hospital department * (ABNORMAL) CVR ONLY, CKMB/CK (04/17/2005 1:00 AM REPEAT CHIEF) CKMB 22.5(AA) <=3.8 ng/mL INTERFACE SYSTEM Comment:Persistent abnormal result CKMB INTERP See Below INTERFAC E SYSTEM Comment:Elevated CKMB,consis tent with Myocardial Injury CK 325(H) 10 - 145 U/L INTERFACE SYSTEM CARDIAC RELATIVE INDEX 6.9(H) <=4.0 INTERFACE SYSTEM 04/17/2005 1:00 AM REPEAT CHIEF Max Jhaveri MD CHEMISTRY ORDERABLES Final Re sult Performing Organization Address [facility]/ZIP Co de Phone Number INTERFACE SYSTEM Refer to clinic/hospital department * (ABNORMAL) POC GLUCOSE (04/17/2005 12:53 AM REPEAT CHIEF) GLUCOSE POC 145(H) 65 - 109 mg/dL INTERFACE SYSTEM 04/17/2005 12:5 3 AM REPEAT CHIEF Cirilo Buenrostro MD POINT OF CARE TESTING Fin al Result Performing Organization Address [facility] de Phone Number INTERFACE SYSTEM Refer to clinic/hospital department * (ABNORMAL) POC GLUCOSE (04/16/2005 11:21 PM REPEAT CHIEF) GLUCOSE POC 160(H) 65 - 109 mg/dL INTERFACE SYSTEM 04/16/2005 11:2 1 PM REPEAT CHIEF Cirilo Buenrostro MD POINT OF CARE TESTING Fin al Result Performing Organization Address [facility] de Phone Number INTERFACE SYSTEM Refer to clinic/hospital department * (ABNORMAL) POC GLUCOSE (04/16/2005 10:17 PM REPEAT CHIEF) GLUCOSE POC 159(H) 65 - 109 mg/dL INTERFACE SYSTEM 04/16/2005 10:1 7 PM REPEAT CHIEF Cirilo Buenrostro MD POINT OF CARE TESTING Fin al Result Performing Organization Address [facility] de Phone Number INTERFACE SYSTEM Refer to clinic/hospital department * (ABNORMAL) POC GLUCOSE (04/16/2005 9:29 PM REPEAT CHIEF) GLUCOSE POC 178(H) 65 - 109 mg/dL INTERFACE SYSTEM 04/16/2005 9:29 PM REPEAT CHIEF Cirilo Buenrostro MD POINT OF CARE TESTING Fin al Result Performing Organization Address [facility] de Phone Number INTERFACE SYSTEM Refer to clinic/hospital department * (ABNORMAL) POC RT, BLOOD GASES (04/16/2005 8:45 PM REPEAT CHIEF) PH ARTERIAL 7.40 7.35 - 7.45 INTERFACE [...] RN AWARE INTERFACE SYSTEM 04/16/2005 8:45 PM REPEAT CHIEF Cirilo Buenrostro MD CHEMISTRY ORDERABLES Sommer l Result Performing Organization Address [facility] Co de Phone Number INTERFACE SYSTEM Refer to clinic/hospital department * (ABNORMAL) POC GLUCOSE (04/16/2005 8:26 PM REPEAT CHIEF) GLUCOSE POC 190(H) 65 - 109 mg/dL INTERFACE SYSTEM 04/16/2005 8:26 PM REPEAT CHIEF Cirilo Buenrostro MD POINT OF CARE TESTING Fin al Result Performing Organization Address [facility] de Phone Number INTERFACE SYSTEM Refer to clinic/hospital department * POTASSIUM LEVEL (04/16/2005 8:00 PM REPEAT CHIEF) POTASSIUM 3.8 3.5 - 4.9 mmol/L INTERFACE SYSTEM Comment: Testing was performed on Serum. Specimen of choice is Idanha Heparinized Plasma. Serum Potassium Reference Range: 5 years - 150 years 3.5 - 5.0 mmol/L 1 year - 5 years 3.4 - 4.7 mmol/L 15 days - 1 year 4.1 - 5.3 mmol/L 0 days - 15 days 3.7 - 5.9 mmol/L 04/16/2005 8:00 PM REPEAT CHIEF Max Jhaveri MD CHEMISTRY ORDERABLES Final Re sult Performing Organization Address [facility] Phone Number INTERFACE SYSTEM Refer to clinic/hospital department * MAGNESIUM LEVEL (04/16/2005 8:00 PM REPEAT CHIEF) MAGNESIUM 2.1 1.5 - 2.5 mg/dL INTERFACE SYSTEM 04/16/2005 8:00 PM REPEAT CHIEF Max Jhaveri MD CHEMISTRY ORDERABLES Final Re sult Performing Organization Address [facility] Phone Number INTERFACE SYSTEM Refer to clinic/hospital department * (ABNORMAL) POC GLUCOSE (04/16/2005 7:51 PM REPEAT CHIEF) GLUCOSE POC 186(H) 65 - 109 mg/dL INTERFACE SYSTEM 04/16/2005 7:51 PM REPEAT CHIEF Cirilo Buenrostro MD POINT OF CARE TESTING Fin al Result Performing Organization Address [facility] Phone Number INTERFACE SYSTEM Refer to clinic/hospital department * (ABNORMAL) POC GLUCOSE (04/16/2005 6:31 PM REPEAT CHIEF) GLUCOSE POC 167(H) 65 - 109 mg/dL INTERFACE SYSTEM 04/16/2005 6:31 PM REPEAT CHIEF Cirilo Buenrostro MD POINT OF CARE TESTING Fin al Result Performing Organization Address [facility] de Phone Number INTERFACE SYSTEM Refer to clinic/hospital department * (ABNORMAL) POC GLUCOSE (04/16/2005 5:36 PM REPEAT CHIEF) GLUCOSE POC 148(H) 65 - 109 mg/dL INTERFACE SYSTEM 04/16/2005 5:36 PM REPEAT CHIEF Cirilo Buenrostro MD POINT OF CARE TESTING Fin al Result Performing Organization Address [facility] de Phone Number INTERFACE SYSTEM Refer to clinic/hospital department * (ABNORMAL) POC GLUCOSE (04/16/2005 4:19 PM REPEAT CHIEF) GLUCOSE POC 143(H) 65 - 109 mg/dL INTERFACE SYSTEM 04/16/2005 4:19 PM REPEAT CHIEF Cirilo Buenrostro MD POINT OF CARE TESTING Fin al Result Performing Organization Address [facility] de Phone Number INTERFACE SYSTEM Refer to clinic/hospital department * (ABNORMAL) POC RT, BLOOD GASES (04/16/2005 4:05 PM REPEAT CHIEF) PH ARTERIAL 7.44 7.35 - 7.45 INTERFACE [...] RN NOTIFIED INTERFACE SYSTEM 04/16/2005 4:05 PM REPEAT CHIEF Cirilo Buenrostro MD CHEMISTRY ORDERABLES Sommer l Result Performing Organization Address [facility] Co de Phone Number INTERFACE SYSTEM Refer to clinic/hospital department * (ABNORMAL) CVR ONLY, CKMB/CK (04/16/2005 3:57 PM REPEAT CHIEF) CKMB 28.2(AA) <=3.8 ng/mL INTERFACE SYSTEM Comment:Results called to ba rb at 04/16/2005 4:50 PM and read back verified. CKMB INTERP See Below INTERFAC E SYSTEM Comment:Elevated CKMB,consis tent with Myocardial Injury. CK 234(H) 10 - 145 U/L INTERFACE SYSTEM CARDIAC RELATIVE INDEX 12.0(H) <=4.0 INTERFACE SYSTEM 04/16/2005 3:57 PM REPEAT CHIEF Max Jhaveri MD CHEMISTRY ORDERABLES Final Re sult Performing Organization Address [facility] Phone Number INTERFACE SYSTEM Refer to clinic/hospital department * (ABNORMAL) CBC WITH DIFFERENTIAL (04/16/2005 3:57 PM REPEAT CHIEF) NEUTROPHILS 77(H) 45 - 70 % INTERFAC [...] 0.20 K/uL INTERFACE SYSTEM 04/16/2005 3:57 PM REPEAT CHIEF Max Jhaveri MD HEMATOLOGY ORDERABLES Final R esult Performing Organization Address [facility] de Phone Number INTERFACE SYSTEM Refer to clinic/hospital department * (ABNORMAL) CBC WITH DIFFERENTIAL (04/16/2005 3:57 PM REPEAT CHIEF) WBC 8.3 4.0 - 9.8 K/uL INTERFACE [...] 12.4 fL INTERFACE SYSTEM 04/16/2005 3:57 PM REPEAT CHIEF Max Jhaveri MD HEMATOLOGY ORDERABLES Final R esult Performing Organization Address [facility] Phone Number INTERFACE SYSTEM Refer to clinic/hospital department * (ABNORMAL) PT AND APTT (04/16/2005 3:57 PM REPEAT CHIEF) PROTIME 17.9(H) 12.7 - 15.1 Seconds INTERFACE SYSTEM INR 1.4(H) 0.9 - 1.1 INTERFACE SYSTEM Comment: INR Therapeutic Range: Adult: 2.0 - 3.0 for pulmonary embolism or prophylaxis against venous thrombosis or systemic embolization. 2.0 - 3.0 for patients with tissue heart valves. 2.5 - 3.5 for patients with mechanical heart valves or post MA. Pediatric (12 years and under): 1.5 - [...] range for unfractionated heparin 04/16/2005 3:57 PM REPEAT CHIEF Max Jhaveri MD HEMATOLOGY ORDERABLES Final R esult Performing Organization Address [facility] de Phone Number INTERFACE SYSTEM Refer to clinic/hospital department * MAGNESIUM LEVEL (04/16/2005 3:57 PM REPEAT CHIEF) MAGNESIUM 1.9 1.5 - 2.5 mg/dL INTERFACE SYSTEM 04/16/2005 3:57 PM REPEAT CHIEF Max Jhaveri MD CHEMISTRY ORDERABLES Final Re sult Performing Organization Address [facility] Phone Number INTERFACE SYSTEM Refer to clinic/hospital department * (ABNORMAL) BASIC METABOLIC PANEL (04/16/2005 3:57 PM REPEAT CHIEF) GLUCOSE 142(H) 65 - 109 mg/dL INTERFACE [...] and redraw if necessary. 04/16/2005 3:57 PM REPEAT CHIEF Max Jhaveri MD CHEMISTRY ORDERABLES Final Re sult Performing Organization Address [facility] Phone Number INTERFACE SYSTEM Refer to clinic/hospital department * LIPID PANEL (04/16/2005 6:10 AM REPEAT CHIEF) LIPID PANEL COMMENT See below INTERFACE SYSTEM [...] section for risk classifications. 04/16/2005 6:10 AM REPEAT CHIEF Cirilo Buenrostro MD CHEMISTRY ORDERABLES Sommer l Result Performing Organization Address [facility] Phone Number INTERFACE SYSTEM Refer to clinic/hospital department * (ABNORMAL) URINALYSIS (04/15/2005 4:23 PM REPEAT CHIEF) COLOR UA Yellow INTERFACE SYSTEM CLARITY UA [...] Seen /HPF INTERFACE SYSTEM 04/15/2005 4:23 PM REPEAT CHIEF Cirilo Buenrostro MD URINE ORDERABLES Final Re sult Performing Organization Address [facility] Phone Number INTERFACE SYSTEM Refer to clinic/hospital department * BASIC METABOLIC PANEL PLUS (04/15/2005 12:40 PM REPEAT CHIEF) AST 21 12 - 32 U/L INTERFACE SYSTEM ALKALINE PHOSPHATASE 65 35 - 104 U/L INTERFACE SYSTEM BILIRUBIN TOTAL 0.3 0.2 - 1.0 mg/dL INTERFACE SYSTEM ALBUMIN 4.0 3.4 - 4.8 g/dL INTERFACE SYSTEM TOTAL PROTEIN 7.3 6.3 - 8.6 g/dL INTERFACE SYSTEM ALT 20 0 - 31 U/L INTERFACE SYSTEM 04/15/2005 12:4 0 PM REPEAT CHIEF Cirilo Buenrostro MD CHEMISTRY ORDERABLES Sommer l Result Performing Organization Address [facility] de Phone Number INTERFACE SYSTEM Refer to clinic/hospital department * CBC WITH DIFFERENTIAL (04/15/2005 12:40 PM REPEAT CHIEF) NEUTROPHILS 56 45 - 70 % INTERFAC [...] K/uL INTERFACE SYSTEM 04/15/2005 12:4 0 PM REPEAT CHIEF Cirilo Buenrostro MD HEMATOLOGY ORDERABLES Fin al Result Performing Organization Address [facility] de Phone Number INTERFACE SYSTEM Refer to clinic/hospital department * (ABNORMAL) CBC WITH DIFFERENTIAL (04/15/2005 12:40 PM REPEAT CHIEF) WBC 3.7(L) 4.0 - 9.8 K/uL INTERFACE [...] fL INTERFACE SYSTEM 04/15/2005 12:4 0 PM REPEAT CHIEF Cirilo Buenrostro MD HEMATOLOGY ORDERABLES Fin al Result Performing Organization Address [facility] de Phone Number INTERFACE SYSTEM Refer to clinic/hospital department * PT AND APTT (04/15/2005 12:40 PM REPEAT CHIEF) PROTIME 14.8 12.7 - 15.1 Seconds INTERFACE SYSTEM INR 1.1 0.9 - 1.1 INTERFACE SYSTEM Comment: INR Therapeutic Range: Adult: 2.0 - 3.0 for pulmonary embolism or prophylaxis against venous thrombosis or systemic embolization. 2.0 - 3.0 for patients with tissue heart valves. 2.5 - 3.5 for patients with mechanical heart valves or post MA. Pediatric (12 years and under): 1.5 - [...] for unfractionated heparin 04/15/2005 12:4 0 PM REPEAT CHIEF Cirilo Buenrostro MD HEMATOLOGY ORDERABLES Fin al Result Performing Organization Address [facility] de Phone Number INTERFACE SYSTEM Refer to clinic/hospital department * (ABNORMAL) BASIC METABOLIC PANEL (04/15/2005 12:40 PM REPEAT CHIEF) GLUCOSE 145(H) 65 - 109 mg/dL INTERFACE [...] mmol/L INTERFACE SYSTEM 04/15/2005 12:4 0 PM REPEAT CHIEF us Cirilo Buenrostro MD CHEMISTRY ORDERABLES Sommer avila Result INTERFACE SYSTEM Refer to clinic/hospital department documented in this encounter Visit Diagnoses Diagnosis Coronary atherosclerosis of [place] coronary artery- Primary documented in this encounter
--- OUTSIDE RECORDS SUMMARY | 2024-08-15 10:32 | XMS_ITS | Encounter Summary ---
Author Organization [facility] Address 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
--- OUTSIDE RECORDS SUMMARY | 2024-08-15 10:32 | XMS_ITS | Encounter Summary ---
Author Organization [facility] Address [address] [place] [address] Care Team Providers Care Shade Maker Name Role Phone Unavailable Primary Care Provider Unavailabl e Encounter Details Date Type Department Care Team (Late st Contact Info) Description 04/18/2005 Outpatient Historical [facility] [place] 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
--- OUTSIDE RECORDS SUMMARY | 2024-08-15 10:32 | XMS_ITS | Clinical Summary ---
Author Organization [facility] Address [address] [place] [address] Care Team Providers Care Resource Program Teacher Name Role Phone Franco Randolph MD Unavailable [phone] Ernestina Luevano MD Primary Care Provider + Cirilo Buenrostro MD Unavailable [phone] Source Comments [facility],non-owned Affiliates and Associated Physician Practices is amultiple site organization consisting of ambulatory clinics and hospital sitesin [place], [place], [place] and [place]. This disclosure is being madepursuant to the Care Everywhere program and may not contain all information available regarding this patient. Last updated 17.[facility] Allergies No known active allergies Medications * [...] daily 07/04/19 21 Active Continuous Blood Gluc Starter Mechanic (MD On-LineStyle Haritha Jud) JACK Inject 1 device subcutaneously continuous 05/27/19 [...] Overview: Added automatically from request for surgery [id number] Primary osteoarthritis of both knees 08/27/2017 DM type 2 with diabetic peripheral neuropathy Overview (08/27/2017): Last Assessment & Plan: Foot care discussed. 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 Gender Identity Not on file Sexual [...] this topic Medical Devices Implanted Type Area Corporate Accounting Manager Device Identifier Shelf Expiration Date Model / Serial / Lot Cmnt Bone Djo Srg Cblt 40gm Hvisc Strl Implanted:Qty: 1 on 08/17/2022 by Franco Randolph MD at [facility] Left: Knee [employer] 11/27/2023 600-15-000 / / [id number] Cmpnt Ptlr Std 28mm 3 Pg Kn Ser A Implanted:Qty: 1 on 08/17/2022 by Franco Randolph MD at [facility] Left: Knee [employer] 05/07/2027 [id number] / / [id number] Tray Tib 75mm Kn Cocr I Beam Implanted:Qty: 1 on 08/17/2022 by Franco Randolph MD at [facility] Left: Knee [employer] 08/24/2031 [id number] / / [id number] Cmpnt Fem Kn Lt Cr Cmnt Prm Vngrd Intlk 67.5 Mm Implanted:Qty: 1 on 08/17/2022 by Franco Randolph MD at [facility] Left: Knee [employer] 06/02/2032 [id number] / / [id number] Brng 13ave12zg Vngrd Arcm Kn Ant Stab Implanted:Qty: 1 on 08/17/2022 by Franco Randolph MD at [facility] Left: Knee [employer] 05/22/2027 [id number] / / [id number] Procedures Procedure Name Priority Date/Time Associated Diagnosis [...] MD LAB - CHEMISTRY ORDERABLES Final Result [facility] [facility] [address] [place] [address] from Last 3 Months or Most Recently Relevant to Health Maintenance Insurance DUDLEY GOODSON [id number] MEDICARE [facility] Address: [facility] [address] [place] [address] DUDLEY GOODSON [id number] [employer] SELF PAY NO INSURANCE Member Subscriber Plan / Payer (Ef fective for All Dates) Name:Ana M Childress Member ID:Not on file Relation to Subscriber:Not on file Name:ANA M CHILDRESS Subscriber ID:Not on file (Home) Address: [address] [place] [address] [place] [address] Payer ID:Not on file Group ID:Not on file Type:Self Pay Address: [place], [place] [address] Advance Directives * Full Code (Latest Code Status on File) Date Activated Date Inactivated Comments 08/17/2022 1:40 PM 08/18/2022 4:20 PM Care Teams Resource Program Teacher Relationship Specialty Start Date End Date Ernestina Luevano MD [address] [place] [address] PCP - General Family Medicine 06/03/22 [place] [address] [place] [address] Orthopedic Surgery 08/27/17 Cirilo Buenrostro MD [address] [place] [address] [facility] 08/12/22
--- OUTSIDE RECORDS SUMMARY | 2024-08-15 10:32 | XMS_ITS | Encounter Summary ---
Author Organization [facility] Address [address] [place] [address] Care Team Providers Care Kennel Operator Name Role Phone Unavailable Primary Care Provider Unavailabl e Encounter Details Date Type Department Care Team (Late st Contact Info) Description 04/16/2005 Outpatient Historical [facility] Cardiovas and Thor Surg at [facility] Heart [address] [address] Richard Cotto, [place] NO ADDRESS ON FILE Social History Tobacco Use Types Packs/Day Years Used Date Smoking Tobacco: Never Assessed Comments Unknown Sex and Gender Information Value Date Recorded Sex Assigned at Not on file 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
[2024-08-15 10:46] LABS: Basophils Absolute Auto 0.1 K/mm3 (0.0-0.1); Basophils Percent Auto 0.9 % (0.2-1.2); Eosinophils Absolute Auto 0.4 K/mm3 (0-0.3); Eosinophils Percent Auto 5.5 % (0-4.4); Hematocrit 32.7 % (37.0-47.0); Hemoglobin 9.7 g/dL (12.0-15.0); Immature Granulocyte Absolute 0.02 K/mm3 (0.00-0.031); Immature Granulocyte Percent A 0.3 % (0-0.5); Lymphocytes Absolute Auto 1.34 K/mm3 (0.9-3.2); Lymphocytes Percent Auto 20.9 % (18.3-44.2); Mean Corpuscular HGB Conc 29.7 g/dl (32-36); Mean Corpuscular Hemoglobin 29.7 pg (26-34); Mean Platelet Volume 11.5 fl (7.4-10.4); Monocytes Absolute Auto 0.5 K/mm3 (0.1-0.6); Monocytes Percent Auto 7.8 % (2.6-8.5); Neutrophils Absolute Auto 4.1 K/mm3 (1.3-6.7); Neutrophils Percent Auto 64.6 % (45.5-73.1); Platelet Count Result 277 k/mm3 (150-375); Red Blood Count 3.27 M/mm3 (4.2-5.4); Red Cell Distribution Width 14.6 % (11.5-14.5); White Blood Count 6.4 K/mm3 (4.5-10.0)
[2024-08-15 11:01] LABS: Alanine Aminotransferase 17 U/L (6-35); Albumin Level 4.2 g/dL (3.5-5.1); Alkaline Phosphatase 57 U/L (38-126); Anion Gap 10 mmol/L (4-12); Aspartate Amino Transferase 23 U/L (14-36); Bilirubin,Total 0.2 mg/dL (0.2-1.3); Blood Urea Nitrogen 37 mg/dL (7-17); Calcium 9.3 mg/dL (8.4-10.2); Carbon Dioxide 25 mmol/L (22-30); Chloride 102 mmol/L (98-107); Estimated CRCL calculation 33 ml/min; Estimated Glomerular Filt Rate 42; Glucose 281 mg/dL (65-110); Prothrombin Time 22.6 Seconds (11.1-14.7); Sodium 137 mmol/L (137-145)
[2024-08-15 11:14] LABS: NT Pro B Type Natriuretic Pept 1480 pg/mL (19.9-100); Troponin I < 0.012 ng/mL (0.000-0.034)
--- OUTSIDE RECORDS SUMMARY | 2024-08-15 12:05 | XMS_ITS | Encounter Summary ---
Author Organization [facility] Address [address] [place] [address] Care Team Providers Care Burr Machine Operator Name Role Phone Unavailable Primary Care Provider Unavailabl e Encounter Details Date Type Department Care Team (Late st Contact Info) Description 04/16/[address] 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
--- OUTSIDE RECORDS SUMMARY | 2024-08-15 12:05 | XMS_ITS | Encounter Summary ---
Author Organization [facility] Address [address] [place] [address] Care Team Providers Care Social Insurance Specialist Name Role Phone Unavailable Primary Care Provider Unavailabl e Encounter Details Date Type Department Care Team (Late st Contact Info) Description 04/18/2005 Outpatient Historical [facility] [place] [facility] 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
--- OUTSIDE RECORDS SUMMARY | 2024-08-15 12:05 | XMS_ITS | Encounter Summary ---
Author Organization [facility] Address 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
--- OUTSIDE RECORDS SUMMARY | 2024-08-15 12:05 | XMS_ITS | Clinical Summary ---
Author Organization [facility] Address [address] [place] [address] Care Team Providers Care Laborer/Grade Check Name Role Phone Unavailable Primary Care Provider Unavailabl e Social History Tobacco Use Types Packs/Day Years Used Date Smoking Tobacco: Never Assessed Comments Unknown Sex and Gender Information Value Date Recorded Sex Assigned at Not on file Legal Sex Female 5:02 AM CONTINUITY MANAGER Gender Identity Not on file Sexual [...]
--- OUTSIDE RECORDS SUMMARY | 2024-08-15 12:05 | XMS_ITS | Encounter Summary ---
Author Organization [facility] Address 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
--- OUTSIDE RECORDS SUMMARY | 2024-08-15 12:05 | XMS_ITS | Clinical Summary ---
Author Organization [facility] [address] Address [address] [place] [address] Care Team Providers Care Sanding Machine Operator Or Tender Name Role Phone Catalina Mejia MD Primary Care Provider [phone] Josef Groves MD Unavailable Allergies No known active allergies Medications blood [...] flash glucose scanning reader (FreeStyle Haritha 2 [place]) [facility] USE DIRECTED 1 each [...] (07/22/2020): Added automatically from request for surgery [id number] Chronic cholecystitis with calculus 03/27/2020 Calculus of gallbladder with chronic cholecystitis without obstruction 03/27/2020 Overview (03/27/2020): Added automatically from request for surgery [id number] Type 2 diabetes mellitus wit h hyperglycemia, with long-term current use of insulin ([facility]) 07/15/2017 Assessment & Plan (08/11/2022 4:37 PM [...] provided as she was driving back to [place]. Instructed not to drive until all 8 [...] rosuvastatin Assessment & Plan (05/27/2022 5:14 PM PERCOLATOR OPERATOR): This is a chronic condition which [...] care discussed. Coronary artery disease invo lving [place] coronary artery of [place] heart without angina pectoris 01/28/2017 Hx of [...] prescribed. Assessment & Plan (05/27/2022 5:15 PM PERCOLATOR OPERATOR): This is a chronic condition. goal - LDL less than 70 Continue rosuvastatin. Encouraged to eat healthy, include fresh fruits and vegetables daily and avoid eating fried foods more than once per week. Encouraged to take medications as prescribed. Repeat lipid panel ordered. Assessment & Plan (03/11/2018 8:31 AM PERCOLATOR OPERATOR): Continue statin and follow up with [...] prescribed. Assessment & Plan (05/27/2022 5:15 PM PERCOLATOR OPERATOR): This is a chronic condition which [...] ARB Assessment & Plan (03/11/2018 8:31 AM PERCOLATOR OPERATOR): Controlled on current medications. Assessment & [...] (10/05/2017): Added automatically from request for surgery [id number] Cellulitis of left lower extremity 12/28/2016 04/03/2020 [...] goal hba1c is under 7.0 to prevent alf diabetes complications ( eye , kidney and [...] Farxiga. Assessment & Plan (03/11/2018 8:30 AM PERCOLATOR OPERATOR): A1c is 9.5. Increase Levemir to [...] goal hba1c is under 7.0 to prevent business account specialist diabetes complications ( eye , kidney and [...] on file Legal Sex Female 10:56 AM PERCOLATOR OPERATOR Gender Identity Not on file Sexual Orientation Not on file Obstetrics History Last Filed Vital Signs Vital Sign Reading Time Taken Comments Blood Pressure 118/64 08/11/2022 4:01 PM CDT Pulse 65 05/26/2022 2:15 PM PERCOLATOR OPERATOR Temperature 36.3 C (97.3 F) 09/16/2020 8:32 AM CDT Respiratory Rate 15 09/16/2020 9:28 AM CDT Oxygen Saturation 97% 05/26/2022 2:15 PM PERCOLATOR OPERATOR Inhaled Oxygen Concentration - - Weight [...] Diagnosis Comments EGFR Routine 03/31/2024 10:51 AM PERCOLATOR OPERATOR LIPID PANEL Routine 03/31/2024 10:51 AM PERCOLATOR OPERATOR POCT HEMOGLOBIN A1C Routine 08/11/2022 4 :07 PM CDT Type 2 diabetes mellitus with hyperglycemia, with long-term current use of insulin (HCC) ALBUMIN CREATININE RATIO, URINE Routine 06/01/2022 8:10 AM PERCOLATOR OPERATOR Type 2 diabetes mellitus with hyperglycemia, with long-term current use of insulin (HCC) COLONOSCOPY 09/16/2020 8:22 AM CDT from Last 3 Months or Most Recently Relevant to Health Maintenance Results * eGFR (03/31/2024 10:51 AM PERCOLATOR OPERATOR) eGFR 82 >=60 mL/min/1. 73 m2 [...] reviewed 2021. Blood 03/31/2024 10:5 1 AM PERCOLATOR OPERATOR 03/31/2024 5:14 PM PERCOLATOR OPERATOR us Notinfile Unknown LAB BLOOD ORDERABLES Final Res ult [facility] [address] Department [place] [address] * Lipid panel (03/31/2024 10:51 AM PERCOLATOR OPERATOR) Cholesterol 177 30 - 199 mg/dL [...] revised on 2017. Triglycerides 96 <=149 mg/dL [facility] Comment: Interpretive Data Ages < or = [...] revised on 2017. HDL 53 >=40 mg/dL [facility] Comment: Interpretive Data Ages < or = [...] on 2017. LDL, calculated 106 <=129 mg/dL [facility] Comment: Interpretive Data Ages < or = [...] revised on 2023. Non-HDL Cholesterol 124 mg/dL [facility] Comment: Interpretive Data Ages < or = [...] last revised on 2017. Chol/HDL ratio 3 [facility] Blood 03/31/2024 10:5 1 AM PERCOLATOR OPERATOR 03/31/2024 2:12 PM PERCOLATOR OPERATOR us Notinfile Unknown LAB BLOOD ORDERABLES Final Res ult [facility] [address] Department [place] [address] * POCT hemoglobin A1c (08/11/2022 4:07 PM CDT) Hemoglobin A1C, POC 7.2 % Blood 08/11/2022 4:07 PM CDT us Yennifer Cosby NP POINT OF CARE TEST ORDERABLES F inal Result * (ABNORMAL) Albumin Creatinine Ratio, Urine (06/01/2022 8:10 AM PERCOLATOR OPERATOR) Albumin Ur 112.4 mg/L [facility] ([place]) Comment: Interpretive Data No reference range established. Current interpretive data was last revised 2018. Testing performed by: [facility], [address] [place] [address]., [id number] Creatinine Ur 107.2 mg/dL [facility] ([place]) Comment: Interpretive Data No reference range established. Current interpretive data was last revised 2018. Testing performed by: [facility], [address] [place] [address]., [id number] Albumin Creatinine Ratio, Ur 105(H) 1 - 29 mg/g [facility] ([place]) Comment:Testing performed by : [facility], [address] [place] [address]., [id number] Urine 06/01/2022 8:10 AM PERCOLATOR OPERATOR 06/01/2022 11:15 AM PERCOLATOR OPERATOR us Yennifer Cosby POWER PLANT MANAGER LAB URINE ORDERABLES Final Resu lt SY [facility] ([place]) [address] [facility] Department [place] [address] * COLONOSCOPY (09/16/2020 8:22 AM CDT) Anatomical Region Laterality Modality Other Narrative Procedure Note Danitza Sawyer MD - 09/16/2020 8:22 AM CDT ENDOSCOPY LAB Patient Name: Ana M Junior Procedure Date: 09/16/2020 8:22 AM Admit Type: Outpatient Room: [facility] Date of : 1945 Instrument Name: [id number] [...] ofthe bowel preparation was evaluated using the BBPS([place] Bowel Preparation Scale) with scores of: RightColon [...] Recently Relevant to Health [place] [place] [address] [facility] MEDICARE [facility] Address: [id number] [place] [address] [facility] [id number] [place] [address] [facility]IC[facility] [employer] OPEN ACCESS [facility] [id number] MEDICARE [facility] Address: [address] [address] [place] [address] Advance Directives For more information, please contact: [phone] * Full Code (Latest Code Status on File) Date Activated Date Inactivated Comments 09/16/2020 7:53 AM 09/16/2020 1:51 PM * Full Code Date Activated Date Inactivated Comments 04/08/2020 8:07 PM 04/09/2020 3:48 PM * Full Code Date Activated Date Inactivated Comments 12/04/2019 7:00 AM 12/04/2019 1:23 PM * Full Code Date Activated Date Inactivated Comments 10/02/2019 11:59 AM 10/02/2019 5:31 PM Care Teams Sanding Machine Operator Or Tender Relationship Specialty Start Date End Date Catalina Mejia MD [address] [place] [address] PCP - General Internal Medicine 09/05/19 Josef Groves MD [address] [place] [address] Consulting Physician General Surgery 04/08/20
--- OUTSIDE RECORDS SUMMARY | 2024-08-15 12:05 | XMS_ITS | Encounter Summary ---
Author Organization [facility] Address [address] [place] [address] Care Team Providers Care Director Supplier Quality Name Role Phone Unavailable Primary Care Provider Unavailabl e Encounter Details Date Type Department Care Team (Late st Contact Info) Description 04/15/2005 Outpatient Historical [facility] Cardiovas and Thor Surg at [facility] Heart [address] [address] Max Jhaveri MD [address] [place] [phone] Social History Tobacco Use Types Packs/Day Years Used Date Smoking Tobacco: Never Assessed Comments Unknown Sex and Gender Information Value Date Recorded Sex Assigned at Not on file 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
--- OUTSIDE RECORDS SUMMARY | 2024-08-15 12:05 | XMS_ITS | Encounter Summary ---
Author Organization [facility] Address [address] [place] [address] Care Team Providers Care Combine Mechanic Name Role Phone Unavailable Primary Care Provider Unavailabl e Encounter Details Date Type Department Care Team (Late st Contact Info) Description 05/20/2005 Outpatient Historical [facility] Cardiovas and Thor Surg at [facility] Heart [address] [address] Max Jhaveri MD [address] [place] [phone] Social History Tobacco Use Types Packs/Day Years Used Date Smoking Tobacco: Never Assessed Comments Unknown Sex and Gender Information Value Date Recorded Sex Assigned at Not on file 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
--- OUTSIDE RECORDS SUMMARY | 2024-08-15 12:05 | XMS_ITS | Clinical Summary ---
Author Organization [facility] [employer] Address [address] [place] [address] Care Team Providers Care Doll Dresser Name Role Phone Franco Randolph MD Unavailable [phone] Ernestina Luevano MD Primary Care Provider + Cirilo Buenrostro MD Unavailable [phone] Source Comments [facility] [employer],non-owned Affiliates and Associated Physician Practices is amultiple site organization consisting of ambulatory clinics and hospital sitesin [place], [place], [place] and [place]. This disclosure is being madepursuant to the Care Everywhere program and may not contain all information available regarding this patient. Last updated 17.[facility] [employer] Allergies No known active allergies Medications * [...] daily 07/04/19 21 Active Continuous Blood Gluc Detail Sergeant ([employer] Haritha [place]) JACK Inject 1 device subcutaneously continuous 05/27/19 [...] Overview: Added automatically from request for surgery [id number] Primary osteoarthritis of both knees 08/27/2017 DM type 2 with diabetic peripheral neuropathy Overview (08/27/2017): Last Assessment & Plan: Foot care discussed. 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 PHYSICIAN ASSISTANT Gender Identity Not on file Sexual Orientation [...] this topic Medical Devices Implanted Type Area Slot Floor Attendant Device Identifier Shelf Expiration Date Model / Serial / Lot Cmnt Bone Djo Srg Cblt 40gm Hvisc Strl Implanted:Qty: 1 on 08/17/2022 by Franco Randolph MD at [facility] Left: Knee [employer] 11/27/2023 600-15-000 / / [id number] Cmpnt Ptlr Std 28mm 3 Pg Kn Ser A Implanted:Qty: 1 on 08/17/2022 by Franco Randolph MD at [facility] Left: Knee [employer] 05/07/2027 [id number] / / [id number] Tray Tib 75mm Kn Cocr I Beam Implanted:Qty: 1 on 08/17/2022 by Franco Randolph MD at [facility] Left: Knee [employer] 08/24/2031 [id number] / / [id number] Cmpnt Fem Kn Lt Cr Cmnt Prm Vngrd Intlk 67.5 Mm Implanted:Qty: 1 on 08/17/2022 by Franco Randolph MD at [facility] Left: Knee [employer] 06/02/2032 [id number] / / [id number] Brng 32vdd09ka Vngrd Arcm Kn Ant Stab Implanted:Qty: 1 on 08/17/2022 by Franco Randolph MD at [facility] Left: Knee [employer] 05/22/2027 [id number] / / [id number] Procedures Procedure Name Priority Date/Time Associated Diagnosis [...] MD LAB - CHEMISTRY ORDERABLES Final Result [facility] [address] [place] [address] from Last 3 Months or Most Recently Relevant to Health Maintenance Insurance [place] [id number] [place]IC[place] [facility] [place] [facility] [place] Address: [facility] [id number] [place] [address] DUDLEY GOODSON [id number] [employer] SELF PAY NO INSURANCE Member Subscriber Plan / Payer (Ef fective for All Dates) Name:Ana M Childress Member ID:Not on file Relation to Subscriber:Not on file Name:ANA M HCILDRESS Subscriber ID:Not on file (Home) Address: [address] [place] [address] [place] [address] Payer ID:Not on file Group ID:Not on file Type:Self Pay Address: [place], [place] [address] Advance Directives * Full Code (Latest Code Status on File) Date Activated Date Inactivated Comments 08/17/2022 1:40 PM 08/18/2022 4:20 PM Care Teams Doll Dresser Relationship Specialty Start Date End Date Ernestina Luevano MD [address] [place] [address] PCP - General Family Medicine 06/03/22 [place] [address] [place] [address] Orthopedic Surgery 08/27/17 Cirilo Buenrostro MD [address] [place] [address] Joint Runner Cardiology 08/12/22
--- OUTSIDE RECORDS SUMMARY | 2024-08-15 12:05 | XMS_ITS ---
[...] section for risk classifications. 04/16/2005 6:10 AM CUTTING MACHINE OPERATOR HELPER Cirilo Buenrostro MD CHEMISTRY ORDERABLES Sommer l Result Performing Organization Address [facility] de Phone Number INTERFACE SYSTEM Refer to clinic/hospital department * (ABNORMAL) URINALYSIS (04/15/2005 4:23 PM CUTTING MACHINE OPERATOR HELPER) COLOR UA Yellow INTERFACE SYSTEM CLARITY UA [...] Seen /HPF INTERFACE SYSTEM 04/15/2005 4:23 PM CUTTING MACHINE OPERATOR HELPER Cirilo Buenrostro MD URINE ORDERABLES Final Re sult Performing Organization Address [facility] de Phone Number INTERFACE SYSTEM Refer to clinic/hospital department * BASIC METABOLIC PANEL PLUS (04/15/2005 12:40 PM CUTTING MACHINE OPERATOR HELPER) Pathologist [facility] AST 21 12 - 32 U/L INTERFACE SYSTEM ALKALINE PHOSPHATASE 65 35 - 104 U/L INTERFACE SYSTEM BILIRUBIN TOTAL 0.3 0.2 - 1.0 mg/dL INTERFACE SYSTEM ALBUMIN 4.0 3.4 - 4.8 g/dL INTERFACE SYSTEM TOTAL PROTEIN 7.3 6.3 - 8.6 g/dL INTERFACE SYSTEM ALT 20 0 - 31 U/L INTERFACE SYSTEM 04/15/2005 12:4 0 PM CUTTING MACHINE OPERATOR HELPER Cirilo Buenrostro MD CHEMISTRY ORDERABLES Sommer l Result Performing Organization Address [facility] Phone Number INTERFACE SYSTEM Refer to clinic/hospital department * CBC WITH DIFFERENTIAL (04/15/2005 12:40 PM CUTTING MACHINE OPERATOR HELPER) [facility] NEUTROPHILS 56 45 - 70 % INTERFAC [...] K/uL INTERFACE SYSTEM 04/15/2005 12:4 0 PM CUTTING MACHINE OPERATOR HELPER Cirilo Buenrostro MD HEMATOLOGY ORDERABLES Fin al Result Performing Organization Address [facility] Phone Number INTERFACE SYSTEM Refer to clinic/hospital department * (ABNORMAL) CBC WITH DIFFERENTIAL (04/15/2005 12:40 PM CUTTING MACHINE OPERATOR HELPER) [facility] WBC 3.7(L) 4.0 - 9.8 K/uL INTERFACE [...] fL INTERFACE SYSTEM 04/15/2005 12:4 0 PM CUTTING MACHINE OPERATOR HELPER us Cirilo Buenrostro MD HEMATOLOGY ORDERABLES Fin al Result INTERFACE SYSTEM Refer to clinic/hospital department * PT AND APTT (04/15/2005 12:40 PM CUTTING MACHINE OPERATOR HELPER) PROTIME 14.8 12.7 - 15.1 Seconds INTERFACE SYSTEM INR 1.1 0.9 - 1.1 INTERFACE SYSTEM Comment: INR Therapeutic Range: Adult: 2.0 - 3.0 for pulmonary embolism or prophylaxis against venous thrombosis or systemic embolization. 2.0 - 3.0 for patients with tissue heart valves. 2.5 - 3.5 for patients with mechanical heart valves or post [place]. Pediatric (12 years and under): 1.5 - [...] for unfractionated heparin 04/15/2005 12:4 0 PM CUTTING MACHINE OPERATOR HELPER Cirilo Buenrostro MD HEMATOLOGY ORDERABLES Fin al Result INTERFACE SYSTEM Refer to clinic/hospital department * (ABNORMAL) BASIC METABOLIC PANEL (04/15/2005 12:40 PM CUTTING MACHINE OPERATOR HELPER) GLUCOSE 145(H) 65 - 109 mg/dL INTERFACE [...] mmol/L INTERFACE SYSTEM 04/15/2005 12:4 0 PM CUTTING MACHINE OPERATOR HELPER us Cirilo Buenrostro MD CHEMISTRY ORDERABLES Sommer avila Result INTERFACE SYSTEM Refer to clinic/hospital department documented in this encounter Visit Diagnoses Diagnosis Coronary atherosclerosis of [place] coronary artery- Primary documented in this encounter
--- OUTSIDE RECORDS SUMMARY | 2024-08-15 12:05 | XMS_ITS | Referral Summary ---
Author Organization [facility] [place] [address] Address [address] [place] [address] Care Team Providers Care Recording Engineer Name Role Phone Catalina Mejia MD Primary Care Provider [phone] Josef Groves MD Unavailable [phone] Allergies No known active allergies Medications [...] flash glucose scanning reader ([employer] Haritha 2 [place]) [facility] USE DIRECTED 1 each 1 3 Active [...] (07/22/2020): Added automatically from request for surgery [id number] Chronic cholecystitis with calculus 03/27/2020 Calculus of gallbladder with chronic cholecystitis without obstruction 03/27/2020 Overview (03/27/2020): Added automatically from request for surgery [id number] Type 2 diabetes mellitus wit h hyperglycemia, with long-term current use of insulin ([facility]) 07/15/2017 Assessment & Plan (08/11/2022 4:37 PM [...] provided as she was driving back to [place]. Instructed not to drive until all 8 [...] rosuvastatin Assessment & Plan (05/27/2022 5:14 PM REVERBERATORY SKIMMER): This is a chronic condition which is [...] care discussed. Coronary artery disease invo lving [place] coronary artery of [place] heart without angina pectoris 01/28/2017 Hx of [...] prescribed. Assessment & Plan (05/27/2022 5:15 PM REVERBERATORY SKIMMER): This is a chronic condition. goal - LDL less than 70 Continue rosuvastatin. Encouraged to eat healthy, include fresh fruits and vegetables daily and avoid eating fried foods more than once per week. Encouraged to take medications as prescribed. Repeat lipid panel ordered. Assessment & Plan (03/11/2018 8:31 AM REVERBERATORY SKIMMER): Continue statin and follow up with cardiology [...] prescribed. Assessment & Plan (05/27/2022 5:15 PM REVERBERATORY SKIMMER): This is a chronic condition which is [...] ARB Assessment & Plan (03/11/2018 8:31 AM REVERBERATORY SKIMMER): Controlled on current medications. Assessment & Plan [...] (10/05/2017): Added automatically from request for surgery [id number] Cellulitis of left lower extremity 12/28/2016 04/03/2020 [...] goal hba1c is under 7.0 to prevent jail diabetes complications ( eye , kidney and [...] Farxiga. Assessment & Plan (03/11/2018 8:30 AM REVERBERATORY SKIMMER): A1c is 9.5. Increase Levemir to 34 [...] goal hba1c is under 7.0 to prevent longwall shearer operator diabetes complications ( eye , kidney [...] on file Legal Sex Female 10:56 AM REVERBERATORY SKIMMER Gender Identity Not on file Sexual Orientation Not on file Last Filed Vital Signs Vital Sign Reading Time Taken Comments Blood Pressure 118/64 08/11/2022 4:01 PM CDT Pulse 65 05/26/2022 2:15 PM REVERBERATORY SKIMMER Temperature 36.3 C (97.3 F) 09/16/2020 8:32 AM CDT Respiratory Rate 15 09/16/2020 9:28 AM CDT Oxygen Saturation 97% 05/26/2022 2:15 PM REVERBERATORY SKIMMER Inhaled Oxygen Concentration - - Weight 81.2 kg (179 lb) 08/11/2022 4:01 PM CDT Height 162.6 cm (5' 4 ) 08/11/2022 4:01 PM CDT Body Mass Index 30.73 08/11/2022 4:01 PM CDT Plan of Treatment Not on file Procedures Procedure Name Priority Date/Time Associated Diagnosis Comments EGFR Routine 03/31/2024 10:51 AM REVERBERATORY SKIMMER LIPID PANEL Routine 03/31/2024 10:51 AM REVERBERATORY SKIMMER POCT HEMOGLOBIN A1C Routine 08/11/2022 4 :07 PM CDT Type 2 diabetes mellitus with hyperglycemia, with long-term current use of insulin (HCC) ALBUMIN CREATININE RATIO, URINE Routine 06/01/2022 8:10 AM REVERBERATORY SKIMMER Type 2 diabetes mellitus with hyperglycemia, with long-term current use of insulin (HCC) COLONOSCOPY 09/16/2020 8:22 AM CDT from Last 3 Months or Most Recently Relevant to Health Maintenance Results * eGFR (03/31/2024 10:51 AM REVERBERATORY SKIMMER) eGFR 82 >=60 mL/min/1. 73 m2 Comment: [...] reviewed 2021. Blood 03/31/2024 10:5 1 AM REVERBERATORY SKIMMER 03/31/2024 5:14 PM REVERBERATORY SKIMMER us Notinfile Unknown LAB BLOOD ORDERABLES Final Res ult [facility] [address] Department [place] [address] * Lipid panel (03/31/2024 10:51 AM REVERBERATORY SKIMMER) Cholesterol 177 30 - 199 mg/dL Comment: [...] revised on 2017. Triglycerides 96 <=149 mg/dL [facility] Comment: Interpretive Data Ages < or [...] revised on 2017. HDL 53 >=40 mg/dL [facility] Comment: Interpretive Data Ages < or [...] on 2017. LDL, calculated 106 <=129 mg/dL [facility] Comment: Interpretive Data Ages < or [...] revised on 2023. Non-HDL Cholesterol 124 mg/dL [facility] Comment: Interpretive Data Ages < or [...] last revised on 2017. Chol/HDL ratio 3 [facility] Blood 03/31/2024 10:5 1 AM REVERBERATORY SKIMMER 03/31/2024 2:12 PM REVERBERATORY SKIMMER us Notinfile Unknown LAB BLOOD ORDERABLES Final Res ult [facility] [address] Department [place] [address] * POCT hemoglobin A1c (08/11/2022 4:07 PM CDT) Hemoglobin A1C, POC 7.2 % Blood 08/11/2022 4:07 PM CDT Yennifer Cosby INTERNET NETWORK SPECIALIST POINT OF CARE TEST ORDERABLES F inal Result * (ABNORMAL) Albumin Creatinine Ratio, Urine (06/01/2022 8:10 AM REVERBERATORY SKIMMER) Albumin Ur 112.4 mg/L [facility] ([place]) Comment: Interpretive Data No reference range established. Current interpretive data was last revised 2018. Testing performed by: [facility], [address] [place] [address]., [id number] Creatinine Ur 107.2 mg/dL [facility] ([place]) Comment: Interpretive Data No reference range established. Current interpretive data was last revised 2018. Testing performed by: [facility], [address] [place] [address]., [id number] Albumin Creatinine Ratio, Ur 105(H) 1 - 29 mg/g [facility] ([place]) Comment:Testing performed by : [facility], [address] [place] [address]., [id number] Urine 06/01/2022 8:10 AM REVERBERATORY SKIMMER 06/01/2022 11:15 AM REVERBERATORY SKIMMER Yennifer Cosby INTERNET NETWORK SPECIALIST LAB URINE ORDERABLES Final Resu lt [facility] ([place] [address] [facility] Department [place] [address] * COLONOSCOPY (09/16/2020 8:22 AM CDT) Anatomical Region Laterality Modality Other Narrative Procedure Note Danitza Sawyer MD - 09/16/2020 8:22 AM CDT ENDOSCOPY LAB Patient Name: Ana M Junior Procedure Date: 09/16/2020 8:22 AM Admit Type: Outpatient Room: [facility] Date of : 1945 Instrument Name: [...] ofthe bowel preparation was evaluated using the BBPS([place] Bowel Preparation Scale) with scores of: RightColon [...] Most Recently Relevant to Health Maintenance Insurance [facility] MEDICARE [facility] [id number] [place] [address] [facility] MEDICARE [employer] [facility] [id number] MEDICARE Advance Directives For more information, please contact: [phone] * Full Code (Latest Code Status on File) Date Activated Date Inactivated Comments 09/16/2020 7:53 AM 09/16/2020 1:51 PM * Full Code Date Activated Date Inactivated Comments 04/08/2020 8:07 PM 04/09/2020 3:48 PM * Full Code Date Activated Date Inactivated Comments 12/04/2019 7:00 AM 12/04/2019 1:23 PM * Full Code Date Activated Date Inactivated Comments 10/02/2019 11:59 AM 10/02/2019 5:31 PM Care Teams Recording Engineer Relationship Specialty Start Date End Date Catalina Mejia MD [address] [place] [address] PCP - General Internal Medicine 09/05/19 Josef Groves MD [address] [place] [address] Consulting Physician General Surgery 04/08/20
--- NOTE | 2024-08-15 13:49 | ED.GENADULT ---
HPI - General Adult General Chief complaint: Arrhythmia/Palpitations Stated complaint: sent from Dr. Paredes for abnormal EKG Time Seen by Provider: 08/15/24 12:00 History of Present Illness HPI narrative: Patient is a 79-year-old female who presents ER with low heart rate. Patient has had shortness of breath over last week and a half when walking at home. Patient has dementia and cannot provide history so daughter provides history. Patient walks with a walker. She is on carvedilol 6.25 mg that she takes twice a day. Her heart rate was found to be in the 40s in her PCP office that she was sent to the ER. She has no complaints of pain or other complaints this time. Family has not noticed any chest pain. No new leg swelling. No new wheezing or cough. Related Data Home Medications ?Medication ?Instructions ?Recorded ?Confirmed ?Last Taken ?Type coenzyme Q10 100 mg capsule 200 mg PO DAILY 02/18/23 08/15/24 09/21/23 21:00 History (CoQ-10) dextrose 40 % oral gel (Glucose 20 g PO Q15M PRN hypoglycemia 05/17/24 08/15/24 Unknown History Gel) glucagon 1 mg/0.2 mL subcutaneous 1 mg subcut PRN PRN blood sugar 05/17/24 08/15/24 Unknown History auto-injector (Gvoke HypoPen less than 60 unable to swallow 1-Pack) furosemide 20 mg tablet 40 mg PO DAILY 08/15/24 08/15/24 Unknown History insulin degludec 200 unit/mL (3 30 unit subcut DAILY 08/15/24 08/15/24 Unknown History mL) subcutaneous pen (Tresiba FlexTouch U-200 insulin) Allergies Allergy/AdvReac Type Severity Reaction Status Date / Time No Known Allergies Allergy Verified 08/15/24 09:03 Review of Systems Review of Systems: ROS unobtainable: Yes unobtainable due to mental status [facility] Past Medical History Medical History CHF (congestive heart failure) Diabetes mellitus Acute CVA (cerebrovascular accident) Benign essential hypertension Kidney stones Coronary artery disease Myocardial infarction 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 History of total abdominal hysterectomy and bilateral salpingo-oophorectomy History of vein stripping Family History Family History Mother History of stroke Other Diabetes mellitus Sibling Alzheimer disease Social History Social History Social History: Surrogate medical decision maker: Mary Martinez, daughter. Code status: Full code. Smoking packs per day: 1 Smoking cigarettes per day: 20.0 Years smoked: 30 Smoking pack-years: 30.00 Smoking status: Former smoker Tobacco type: cigarettes Second hand tobacco smoke exposure: No Alcohol intake: never Substance use: never Substance use type: does not use Do You Feel Safe in your Home?: Yes Lack of Transportation: No Lack of Food: Never True Current Housing: I Have Housing Concerned About Future Housing: No Difficulty Paying Gas/Electric Bills: No Difficulty Paying for Meds: No Currently Unemployed: No Education: High School Diploma/GED Difficulty w/ Childcare or Family Care: No Living arrangements: with family Occupation/Education: retired Gender identity (if verbalized by the patient): Female Sexual Orientation (if Verbalized by the Patient): Straight or Heterosexual Spiritual care concerns: No Agree to blood products: Yes Exam Narrative: GENERAL: Well-appearing, well-nourished, and in no acute distress. HEAD: Normocephalic, atraumatic. ENT: Mucous membranes moist. CHEST: Clear to auscultation. No respiratory distress. HEART: Bradycardic regular. Normal peripheral pulses. ABDOMEN: Soft, nontender, nondistended. EXTREMITIES: Normal range of motion. 1+ edema. SKIN: Warm, dry, no rash. NEURO: Alert and oriented x3. PSYCH: Normal mood and affect. Course Course Emergency Course: Patient ambulatory with a heart rate in the 60s and no hypoxia around the ER without issue. Discussed case with Dr. Rodgers. Decreased coreg to 3.125 mg BID, recommends fluid restriction of 1.5L a day. Discussed with patient's daughter, they are currently out of Lasix so refill that prescription as well. They will decrease the Coreg as instructed. Vital Signs Vital signs: Vital Signs Temperature 98.1 F 08/15/24 10:19 Pulse Rate 42 L 08/15/24 10:19 Respiratory Rate 24 H 08/15/24 10:19 Blood Pressure 142/42 H 08/15/24 10:19 Pulse Oximetry 100 08/15/24 10:19 Oxygen Delivery Room Air 08/15/24 10:19 Temperature 98.1 F 08/15/24 10:19 Pulse Rate 56 L 08/15/24 14:38 Respiratory Rate 21 H 08/15/24 14:38 Blood Pressure 131/76 08/15/24 14:38 Pulse Oximetry 96 08/15/24 14:38 Oxygen Delivery Room Air 08/15/24 10:19 Medical Decision Making Vital Signs Vital Signs: Vital Signs Temperature 98.1 F 08/15/24 10:19 Pulse Rate 42 L 08/15/24 10:19 Respiratory Rate 24 H 08/15/24 10:19 Blood Pressure 142/42 H 08/15/24 10:19 Pulse Oximetry 100 08/15/24 10:19 Oxygen Delivery Room Air 08/15/24 10:19 Temperature 98.1 F 08/15/24 10:19 Pulse Rate 56 L 08/15/24 14:38 Respiratory Rate 21 H 08/15/24 14:38 Blood Pressure 131/76 08/15/24 14:38 Pulse Oximetry 96 08/15/24 14:38 Oxygen Delivery Room Air 08/15/24 10:19 Lab Data 08/15/24 10:41 08/15/24 10:41 Labs: Lab Results 08/15/24 Range/Units 10:41 WBC 6.4 (4.5-10.0) K/mm3 RBC 3.27 L (4.2-5.4) M/mm3 Hgb 9.7 L (12.0-15.0) g/dL Hct 32.7 L (37.0-47.0) % MCV 100.0 (80-100) fl MCH 29.7 (26-34) pg MCHC 29.7 L (32-36) g/dl RDW 14.6 H (11.5-14.5) % Plt Count 277 (150-375) k/mm3 MPV 11.5 H (7.4-10.4) fl Immature Gran % (Auto) 0.3 (0-0.5) % Neut % (Auto) 64.6 (45.5-73.1) % Lymph % (Auto) 20.9 (18.3-44.2) % Foster % (Auto) 7.8 (2.6-8.5) % Eos % (Auto) 5.5 H (0-4.4) % Baso % (Auto) 0.9 (0.2-1.2) % Lymph # (Auto) 1.34 (0.9-3.2) K/mm3 Foster # (Auto) 0.5 (0.1-0.6) K/mm3 Eos # (Auto) 0.4 H (0-0.3) K/mm3 Baso # (Auto) 0.1 (0.0-0.1) K/mm3 Abs Immat Gran (auto) 0.02 (0.00-0.031) K/mm3 Absolute Neuts (auto) 4.1 (1.3-6.7) K/mm3 Absolute Nucleated RBC 0.000 (0.0-0.012) K/mm3 Nucleated RBC % 0.0 (0.0-0.2) % PT 22.6 H (11.1-14.7) Seconds INR 2.0 APTT 39.0 H (22.3-36.8) Seconds Sodium 137 (137-145) mmol/L Potassium 5.0 (3.4-5.0) mmol/L Chloride 102 (98-107) mmol/L Carbon Dioxide 25 (22-30) mmol/L Anion Gap 10 (4-12) mmol/L BUN 37 H (7-17) mg/dL Creatinine 1.22 H (0.7-1.0) mg/dL Estim Creat Clear Calc 33 ml/min Estimated GFR 42 L (59 - ) Glucose 281 H (65-110) mg/dL Calcium 9.3 (8.4-10.2) mg/dL Total Bilirubin 0.2 (0.2-1.3) mg/dL AST 23 (14-36) U/L ALT 17 (6-35) U/L Alkaline Phosphatase 57 (38-126) U/L Troponin I < 0.012 (0.000-0.034) ng/mL NT-Pro-B Natriuret Pep 1480 H (19.9-100) pg/mL Total Protein 7.0 (6.3-8.2) g/dL Albumin 4.2 (3.5-5.1) g/dL ECG Data EKG #1: ECG completion date: 08/15/24 ECG completion time: 10:28 EKG Interpretation: bradycardia (45), sinus rhythm, non-specific ST changes and RBBB Discharge Plan Discharge Clinical Impression: Bradycardia Patient Disposition: Home Condition: Stable Instructions: Bradycardia (ED) Additional Instructions: Decrease her carvedilol dosage to 3.125mg twice a day. Restart your furosemide 40mg daily. Please return to the emergency department if you develop severe and persistent chest pain, difficulty breathing, dizziness, leg swelling or if you are coughing up blood as these can be signs of a medical emergency. Please call your doctor for a follow up appointment to determine the need for further testing. Patient Language: Bahraini Prescriptions: New furosemide 40 mg tablet 40 mg PO DAILY Qty: 10 0RF carvedilol 3.125 mg tablet 3.125 mg PO BID Qty: 30 0RF Rx Instructions: must administer with a meal/food No Action coenzyme Q10 [CoQ-10] 100 mg Capsule 200 mg PO DAILY (DME) FreeStyle Haritha 3 [place] Misc See Rx Instructions .Route Qty: 2 1RF Rx Instructions: As directed (DME) FreeStyle Haritha 3 Sensor Device See Rx Instructions .Route Qty: 4 4RF Rx Instructions: As directed rosuvastatin 10 mg tablet 10 mg PO QPM Qty: 90 3RF paroxetine HCl 20 mg tablet 30 mg PO DAILY Qty: 135 2RF memantine 5 mg tablet 5 mg PO BID Qty: 60 2RF trazodone 50 mg tablet 50 mg PO QHS Qty: 90 3RF furosemide 20 mg tablet 40 mg PO DAILY insulin degludec [Tresiba FlexTouch U-200] 200 unit/mL (3 mL) insulin pen 30 unit SUBCUT DAILY insulin aspart U-100 [Novolog FlexPen U-100 Insulin] 100 unit/mL (3 mL) insulin pen 20 unit subcut TIDWM Qty: 15 0RF Rx Instructions: 12 units in AM, then 10 units subcutaneously with lunch and dinner (DME) FreeStyle Haritha 3 Sensor Device See Rx Instructions .Route Qty: 1 0RF Rx Instructions: use for monitoring blood sugar aspirin 81 mg tablet,chewable 81 mg PO QPM Qty: 90 2RF enalapril maleate 10 mg tablet 20 mg PO DAILY Qty: 90 4RF pantoprazole [Protonix] 40 mg tablet,delayed release (DR/EC) 40 mg PO QAM 28 Days Qty: 10 0RF ondansetron 4 mg tablet,disintegrating 4 mg PO Q8H PRN (Reason: nausea and vomiting) Qty: 10 0RF acetaminophen 500 mg tablet 1,000 mg PO TID PRN (Reason: arabella) 7 Days Qty: 42 0RF Gvoke HypoPen 1-Pack 1 mg/0.2 mL auto-injector 1 mg SUBCUT PRN PRN (Reason: blood sugar less than 60 unable to swallow) dextrose [Glucose Gel] 40 % gel 20 g PO Q15M PRN (Reason: hypoglycemia) Rx Instructions: until symptoms of low blood sugar are controlled blood sugar greater than 60 divalproex [Depakote] 125 mg tablet,delayed release (DR/EC) 125 mg PO BID Qty: 60 3RF rivaroxaban 20 mg tablet 20 mg PO QPM Qty: 90 0RF (DME) pen needle, diabetic [BD Ultra-Fine Short Pen Needle] 31 gauge x 5/16 needle See Rx Instructions .Route Qty: 400 3RF Rx Instructions: inject qac and qhs Follow-up/Referrals: Apolinar Paredes MD [Primary Care Provider] - 1 Week José Antonio Rodgers DO [Physician] - 1 Week
== END 2024-08-15 14:30 | disposition home or self-care (01) ==
PROVIDERS: Emergency Medicine; Emergency Provider Emergency Medicine; PCP Family Medicine
DX: R00.1 Bradycardia, unspecified (principal); I11.0 Hypertensive heart disease with heart failure; I50.9 Heart failure, unspecified; Z86.73 Personal history of transient ischemic attack (TIA), and cerebral infarction without residual deficits; I25.2 Old myocardial infarction; E11.9 Type 2 diabetes mellitus without complications; Z79.4 Long term (current) use of insulin; E78.5 Hyperlipidemia, unspecified
CPT/HCPCS: 36415; 71045; 80053; 83880; 84484; 85025; 85610; 85730; 93005; 99284

== ENCOUNTER 2024-09-21 10:26 | Outpatient (RCR) | payer MEDICARE, OTHER, SELFPAY | END 2024-12-11 12:23 | disposition home or self-care (01) | LOC: ANHDMC 10:26 | PROVIDERS: PCP Family Medicine; Visit Provider Family Medicine | DX: E11.65 Type 2 diabetes mellitus with hyperglycemia (principal); Z71.89 Other specified counseling | CPT/HCPCS: G0108 ==

== ENCOUNTER 2024-09-22 07:35 | Outpatient (CLI) | payer MEDICARE, OTHER, SELFPAY ==
--- NOTE | ~2024-09-22 | NM_ITS ---
EXAMINATION: NM chely stress w perfusion DATE: 09/22/2024 10:06 INDICATION: Chest pain TECHNIQUE: Rest images were obtained following intravenous administration of 10.7 mCi Tc99m tetrofosm in (Myoview). The patient was infused intravenously with Lexiscan (Regadenoson). Then, 32.3 mCi Tc99m tetrofosmin (Myoview) was administered intravenously, and stress images were obtained. Data was demetrice nstructed into short axis and horizontal and vertical long axis SPECT images. Gated SPECT images were also obtained. COMPARISON: None. FINDINGS: Severe fixed perfusion defect at the mid inferior, basilar inferior and mid inferolateral s egments consistent with infarct. Additional small mild nonreversible infarct at the apical anterior s egment. No reversible ischemia. There is normal left ventricular chamber size, wall motion and eject ion fraction. Left ventricular ejection fraction measures 66%. IMPRESSION: 1. Nonreversible infarct, small and mild at the anteroapical segment and moderate sized and moderate to severe at the mid inferior, mid inferolateral and basilar inferior segments. No reversible ischemi a. 2. Left ventricular ejection fraction measuring 66%. Reviewed, dictated and finalized at location A. IMPRESSION: 1. Nonreversible infarct, small and mild at the anteroapical segment and modera te sized and moderate to severe at the mid inferior, mid inferolateral and basi lar inferior segments. No reversible ischemia. 2. Left ventricular ejection fraction measuring 66%.
--- NOTE | 2024-09-22 07:53 | EST_ITS ---
Patient Info Name: Ana M Junior Age: 79 years : 1945 Gender: Female Ht: 64 in Wt: 165 lbs BSA: 1.86 m2 Exam Date: 09/22/2024 7:53 AM Patient Status: O Admit Date: 09/22/2024 Exam Type: CA stress chely w NM A regadenoson stress test was performed. Staff Referring Physician: José Antonio Rodgers DO Attending Provider: José Antonio Rodgers DO Exercise Technologist: Rajni Devries Exercise Physician: José Antonio Rodgers DO Summary 1. 1. Negative lexiscan stress test for ischemic ST changes by ECG criteria. 2. 2. Stable hemodynamics throughout the test. 3. 3. Nuclear scan to follow and will be reported separately. Please correlate with it. 4. 4. Patient informed of the above results. Protocol: Lexiscan Stress ECG Details Stage: REST Duration (min): 2 min : 41 sec HR (bpm): 58 SBP (mmHg): 143 DBP (mmHg): 75 Stage: REST Duration (min): 8 min : 59 sec HR (bpm): 60 SBP (mmHg): 143 DBP (mmHg): 75 Stage: STAGE 1 Duration (min): 1 min : 0 sec HR (bpm): 63 SBP (mmHg): 134 DBP (mmHg): 64 Stage: RECOVERY Duration (min): 1 min : 0 sec HR (bpm): 69 SBP (mmHg): 134 DBP (mmHg): 64 Stage: RECOVERY Duration (min): 2 min : 0 sec HR (bpm): 66 SBP (mmHg): 130 DBP (mmHg): 69 Stage: RECOVERY Duration (min): 3 min : 0 sec HR (bpm): 64 SBP (mmHg): 132 DBP (mmHg): 69 Stage: RECOVERY Duration (min): 4 min : 0 sec HR (bpm): 63 SBP (mmHg): 132 DBP (mmHg): 69 Stage: RECOVERY Duration (min): 5 min : 0 sec HR (bpm): 62 SBP (mmHg): 134 DBP (mmHg): 68 Stage: RECOVERY Duration (min): 6 min : 0 sec HR (bpm): 62 SBP (mmHg): 134 DBP (mmHg): 68 Stage: RECOVERY Duration (min): 7 min : 0 sec HR (bpm): 63 SBP (mmHg): 134 DBP (mmHg): 71 Stage: RECOVERY Duration (min): 8 min : 0 sec HR (bpm): 64 SBP (mmHg): 134 DBP (mmHg): 71 Stage: RECOVERY Duration (min): 8 min : 11 sec HR (bpm): 64 SBP (mmHg): 134 DBP (mmHg): 71 Rest HR: 60 bpm Peak HR: 71 bpm Rest Sys BP: 143 mmHg Peak Sys BP: 134 mmHg Max Pred HR: 140 bpm % Max Pred HR: 51 % Target HR: 119 bpm Max RPP: 9,514 bpm*mmHg Termination Reason: Completed protocol Cardiac Symptoms: Dyspnea Total Time: 1 min : 0 sec Rest Baeza BP: 75 mmHg Peak Baeza BP: 71 mmHg Total Dose: 0.4 mg Resting ECG Sinus rhythm, RBBB, inferior infarct and anterolateral infarct, age indeterminate. Stress ECG No ST changes. Aminophylline 100 mg IV given for intolerable symptoms. Arrhythmias None. Report Signatures
== END 2024-09-22 07:36 | disposition home or self-care (01) ==
LOC: ANHCARD 07:38
PROVIDERS: PCP Family Medicine; Visit Provider Internal Medicine Cardiovascular Disease
DX: I21.9 Acute myocardial infarction, unspecified (principal)
CPT/HCPCS: 78452; 93017; A9502; J0280; J2785

== ENCOUNTER 2024-12-08 12:55 | Emergency (ER) | payer MEDICARE, SELFPAY ==
[2024-12-08] VITALS (28 sets, daily range): BP systolic 105–163; BP diastolic 38–119; PULSE 35–62; RESP 12–22; TEMP 36.6; O2SAT 92–99
--- NOTE | 2024-12-08 13:02 | ECG_ITS ---
Test Date: 2024-12-08 13:07:59 Measurements Intervals [place] Rate: 40 P: 41 CT: 216 QRS: 17 QRSD: 159 T: -9 QT: 549 QTc: 450 Interpretive Statements SINUS BRADYCARDIA WITH FIRST DEGREE AV BLOCK WITH OCCASIONAL VENTRICULAR PREMATURE COMPLEXES RIGHT BUNDLE BRANCH BLOCK WITH REPOLARIZATION ABNORMALITIES LATERAL MYOCARDIAL INFARCTION , PROBABLY OLD [40+ ms Q WAVE AND/OR ST/T ABNORMALITY IN I/aVL/V5/V6] CRITICAL TEST RESULT Compared to ECG 08/15/2024 10:28:06 Ventricular premature complex(es) now present First degree AV block now present Electronically Signed On 12-08-2024 13:32:13 CDT by Mukund Hayes M.D.
[2024-12-08 13:36] LABS: Hematocrit 42.5 % (37.0-47.0); Hemoglobin 13.3 g/dL (12.0-15.0); Immature Granulocyte Percent A 0.2 % (0-0.5); Lymphocytes Absolute Auto 1.71 K/mm3 (0.9-3.2); Mean Corpuscular HGB Conc 31.3 g/dl (32-36); Mean Corpuscular Hemoglobin 28.3 pg (26-34); Mean Corpuscular Volume 90.4 fl (80-100); Nucleated Red Blood Cells Absolute Auto 0.000 K/mm3 (0.0-0.012); Nucleated Red Blood Cells Perc 0.0 % (0.0-0.2); Platelet Count Result 200 k/mm3 (150-375); Red Blood Count 4.70 M/mm3 (4.2-5.4); White Blood Count 5.6 K/mm3 (4.5-10.0)
[2024-12-08 13:44] LABS: Add Urine Microscopic? YES; Appearance Urine Cloudy (Clear); Glucose Urine UA 3+ mg/dL (Negative); Leukocyte Esterase Ur 1+ LEU/UL (Negative); Nitrate Urine Negative (Negative); Non Pathogenic Casts 0-2; Specific Grav Ur 1.023 (1.001-1.035)
--- NOTE | 2024-12-08 13:47 | PC.NURSE ---
Poison control notified at 1337, spoke with Kelsey and she wants Acetaminophen repeated at 1530.
[2024-12-08 13:55] LABS: Acetaminophen 50 ug/mL (10-30); Alanine Aminotransferase 16 U/L (6-35); Albumin Level 3.8 g/dL (3.5-5.1); Alkaline Phosphatase 74 U/L (38-126); Anion Gap 9 mmol/L (4-12); Aspartate Amino Transferase 24 U/L (14-36); Bilirubin,Total 0.5 mg/dL (0.2-1.3); Blood Urea Nitrogen 24 mg/dL (7-17); Calcium 9.4 mg/dL (8.4-10.2); Carbon Dioxide 22 mmol/L (22-30); Chloride 103 mmol/L (98-107); Estimated CRCL calculation 42 ml/min; Estimated Glomerular Filt Rate > 60; Glucose 291 mg/dL (65-110); Potassium 4.8 mmol/L (3.4-5.0); Salicylate < 1.0 mg/dL (2-20); Sodium 134 mmol/L (137-145); Total Protein 7.2 g/dL (6.3-8.2)
[2024-12-08 14:11] LABS: Cannabinoid Screen Urine Negative (Negative)
[2024-12-08 14:15] LABS: Influenza A QL RT-PCR Negative (Negative); Influenza B QL RT-PCR Negative (Negative); RSV RNA, RT-PCR Negative (Negative); SARS-CoV-2 RNA PCR Negative (Negative)
[2024-12-08 14:26] LABS: Thyroid Stimulating Hormone Reflex 0.699 uIU/mL (0.465-4.68)
[2024-12-08 15:48] LABS: Acetaminophen 27 ug/mL (10-30)
--- NOTE | 2024-12-08 15:54 | ED.OVERDOSE ---
HPI - Overdose General Chief Complaint: Psychiatric Symptoms <Erica Bazzi MD - Last Filed: 12/08/24 22:42> Stated Complaint: intentional OD <Erica Bazzi MD - Last Filed: 12/08/24 22:42> Time Seen by Provider: 12/08/24 15:19 <Erica Bazzi MD - Last Filed: 12/08/24 22:42> Source: patient and RN notes reviewed <Erica Bazzi MD - Last Filed: 12/08/24 22:42> Mode of arrival: EMS <Erica Bazzi MD - Last Filed: 12/08/24 22:42> Limitations: no limitations <Erica Bazzi MD - Last Filed: 12/08/24 22:42> History of Present Illness HPI Narrative: Patient presents after taking a handful, approximately 20 tablets of dual Advil/ibuprofen 125mg and acetaminophen 250mg. She did this at 11:30am. Patient reports that this was intentional and she has been having thoughts of harming herself/killing herself and that she would be better off as this would allow her to see both her mother, father, and . Patient resides with her daughter though states that her daughter is not much of a support person for her and she is also concerned because she believes her daughter wants to place her in a skilled nursing and she is adamently against this. Patient states I guess God didn't want to take me today given that she is still alive. She is initially angry, frustrated, requesting food because she hasn't eaten in 3-4 hours. She denies any complaints such as chest pain, shortness of breath headache, abdominal pain. <Erica Bazzi MD - Last Filed: 12/08/24 22:42> Related Data Home Medications: Home Medications ?Medication ?Instructions ?Recorded ?Confirmed ?Last Taken ?Type dextrose 40 % oral gel (Glucose 20 g PO Q15M PRN hypoglycemia 05/17/24 10/11/24 Unknown History Gel) glucagon 1 mg/0.2 mL subcutaneous 1 mg subcut PRN PRN blood sugar 05/17/24 10/11/24 Unknown History auto-injector (Gvoke HypoPen less than 60 unable to swallow 1-Pack) <Erica Bazzi MD - Last Filed: 12/08/24 22:42> Allergies/Adverse Reactions: Allergies Allergy/AdvReac Type Severity Reaction Status Date / Time No Known Allergies Allergy Verified 09/06/24 14:04 <Erica Bazzi MD - Last Filed: 12/08/24 22:42> FORMERLY [facility] Past Medical History Medical History: Medical History Dementia CHF (congestive heart failure) Diabetes mellitus Acute CVA (cerebrovascular accident) Benign essential hypertension Kidney stones Coronary artery disease Myocardial infarction 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 History of total abdominal hysterectomy and bilateral salpingo-oophorectomy History of vein stripping <Erica Bazzi MD - Last Filed: 12/08/24 22:42> Family History Family History: Family History Mother History of stroke Other Diabetes mellitus Sibling Alzheimer disease Father No problems noted. <Erica Bazzi MD - Last Filed: 12/08/24 22:42> Social History Social History: Social History (Updated 12/08/24 @ 22:32 by Erica Bazzi MD) Social History: Surrogate medical decision maker: Mary Martinez, daughter. Code status: Full code. Smoking packs per day: 1 Smoking cigarettes per day: 20.0 Years smoked: 30 Smoking pack-years: 30.00 Smoking status: Former smoker Tobacco type: cigarettes Second hand tobacco smoke exposure: No Alcohol intake: never Substance use: never Substance use type: does not use Do You Feel Safe in your Home?: Yes Lack of Transportation: No Lack of Food: Never True Current Housing: I Have Housing Concerned About Future Housing: No Difficulty Paying Gas/Electric Bills: No Difficulty Paying for Meds: No Currently Unemployed: No Education: High School Diploma/GED Difficulty w/ Childcare or Family Care: No Living arrangements: with family Additional living arrangements comments: daughter Occupation/Education: retired Gender identity (if verbalized by the patient): Female Sexual Orientation (if Verbalized by the Patient): Straight or Heterosexual Spiritual care concerns: No Agree to blood products: Yes <Erica Bazzi MD - Last Filed: 12/08/24 22:42> Exam Narrative: GENERAL: Well-appearing, well-nourished HEAD: Normocephalic, atraumatic. EYES: Non injected, non icteric ENT: Nares clear, no rhinorrhea or epistaxis. Gross auditory acuity intact. NECK: Supple. No meningismus. CHEST: Speaking in full sentences. No respiratory distress. HEART: Bradycardic rate and rhythm. . ABDOMEN: Soft, nondistended. No rigidity or guarding. Not peritoneal EXTREMITIES: Normal range of motion. No lower extremity edema. SKIN: Warm, dry, no rash. NEURO: No focal deficits. Alert and oriented. Answering questions. Following commands. Normal speech without aphasia or dysarthria. PSYCH: Congruent mood and affect. Appearance: Well kempt. Behavior: Calm, good eye contact. Speech: Appropriate rate, quantity and volume. Endorses SI. Does not appear to be responding to internal stimuli <Erica Bazzi MD - Last Filed: 12/08/24 22:42> Course Vital Signs Vital signs: Vital Signs Pulse Rate 38 L 12/08/24 13:19 Respiratory Rate 14 12/08/24 13:19 Blood Pressure 105/38 L 12/08/24 13:19 Temperature 97.9 F 12/08/24 18:00 Pulse Rate 54 L 12/09/24 05:32 Respiratory Rate 19 12/09/24 05:32 Blood Pressure 133/88 12/09/24 05:32 Pulse Oximetry 94 12/09/24 05:32 Oxygen Delivery Room Air 12/08/24 13:30 <Erica Bazzi MD - Last Filed: 12/08/24 22:42> Vital Signs Pulse Rate 38 L 12/08/24 13:19 Respiratory Rate 14 12/08/24 13:19 Blood Pressure 105/38 L 12/08/24 13:19 Temperature 97.9 F 12/08/24 18:00 Pulse Rate 54 L 12/09/24 05:32 Respiratory Rate 19 12/09/24 05:32 Blood Pressure 133/88 12/09/24 05:32 Pulse Oximetry 94 12/09/24 05:32 Oxygen Delivery Room Air 12/08/24 13:30 <Ochoa Srinivasan MD - Last Filed: 12/09/24 06:28> MDM - Overdose MDM Narrative Medical decision making narrative: Patient presents after intentional ingestion/overdose of acetaminophen and ibuprofen in a suicide attempt. A handful (approximately 20) tablets were taken at approximately 11:30am. In the emergency department she is afebrile with vital signs notable for hypotension (initial DBP 38 with MAP 57mmHg) but improved on repeat assessments. She also has significant bradycardia, in the high 30s. Patient chronically bradycardic per review of the EMR, in the 40s and 50s. Her bradycardia here does improve intermittently. Acetaminophen level 50 initially. At repeat draw as recommended by poison Control Center , normal. Hyperglycemia is without anion gap or acidosis. Pseudo hyponatremia as it corrects to normal (137/139) in the setting of hyperglycemia. Previous urine culture grew group B strep. Will also obtain blood cultures (given prior positive) prior to administering IV ceftriaxone. Patient is told she has urinary tract infection when she is reassessed at 5:00 p.m.. She states she has had issues with urination before and as a result, previous UTIs. She is therefore having some symptoms. Her heart rate during this interaction ranges between 56 and 59. Poison Control has closed the case. Initial plan was to try to admit patient to the hospital for urinary tract infection given her age and have psych to see on the floor. However, discussion with Cathy/JES[facility] hospitalist who declines admission. Does not feel it is a UTI given the squamous cells (although again, WBCs elevated and patient with symptoms. There is a delay in crisis team assessment due to an additional case. Patient's daughter (to nurse as well as healthcare social worker) notes that patient has a history of dementia, diagnosed and for which she had been in a skilled nursing briefly but neither of them agreed with the care she was receiving there and this is why she currently resides with her daughter. Per review of the EMR, dementia had not currently been listed in her past medical history list however it had been there previously. It is reactivated to appear. fabric worker foreman talked with her relay shop supervisor who is concerned as believes the dementia is not so significant and patient is not psychotic to believe this is underlying issue. I concur. Similarly, while I do believe patient has a UTI that should be treated, it may be contributing to her suicidal ideation but unlikely to be the primary hazardous materials driver. Patient has a clear timeline as well as stated plan and , potentially the means. It is felt that patient requires hospitalization to an inpatient mental health facility. Patient had initially somewhat stated voluntary admission to healthcare social worker but then refused, thus will require involuntary admission. Involuntary paperwork filled out be healthcare social worker and myself and signed. Discussed this plan with the patient and the need for involuntary hospitalization for close monitoring and to connect her with appropriate resources especially given depression older adults is often overlooked and patient may benefit from medications, therapy, etc.. Patient verifies understanding. She has otherwise tolerated PO. She has not required any medications for psych/behavior thus far. Signed out pending placement to mental health facility. <Erica Bazzi MD - Last Filed: 12/08/24 22:42> Patient presents after intentional ingestion/overdose of acetaminophen and ibuprofen in a suicide attempt. A handful (approximately 20) tablets were taken at approximately 11:30am. In the emergency department she is afebrile with vital signs notable for hypotension (initial DBP 38 with MAP 57mmHg) but improved on repeat assessments. She also has significant bradycardia, in the high 30s. Patient chronically bradycardic per review of the EMR, in the 40s and 50s. Her bradycardia here does improve intermittently. Acetaminophen level 50 initially. At repeat draw as recommended by poison Control Center , normal. Hyperglycemia is without anion gap or acidosis. Pseudo hyponatremia as it corrects to normal (137/139) in the setting of hyperglycemia. Previous urine culture grew group B strep. Will also obtain blood cultures (given prior positive) prior to administering IV ceftriaxone. Patient is told she has urinary tract infection when she is reassessed at 5:00 p.m.. She states she has had issues with urination before and as a result, previous UTIs. She is therefore having some symptoms. Her heart rate during this interaction ranges between 56 and 59. Poison Control has closed the case. Initial plan was to try to admit patient to the hospital for urinary tract infection given her age and have psych to see on the floor. However, discussion with Cathy/[facility] hospitalist who declines admission. Does not feel it is a UTI given the squamous cells (although again, WBCs elevated and patient with symptoms. There is a delay in crisis team assessment due to an additional case. Patient's daughter (to nurse as well as healthcare social worker) notes that patient has a history of dementia, diagnosed and for which she had been in a skilled nursing briefly but neither of them agreed with the care she was receiving there and this is why she currently resides with her daughter. Per review of the EMR, dementia had not currently been listed in her past medical history list however it had been there previously. It is reactivated to appear. fabric worker foreman talked with her relay shop supervisor who is concerned as believes the dementia is not so significant and patient is not psychotic to believe this is underlying issue. I concur. Similarly, while I do believe patient has a UTI that should be treated, it may be contributing to her suicidal ideation but unlikely to be the primary hazardous materials driver. Patient has a clear timeline as well as stated plan and , potentially the means. It is felt that patient requires hospitalization to an inpatient mental health facility. Patient had initially somewhat stated voluntary admission to healthcare social worker but then refused, thus will require involuntary admission. Involuntary paperwork filled out be healthcare social worker and myself and signed. Discussed this plan with the patient and the need for involuntary hospitalization for close monitoring and to connect her with appropriate resources especially given depression older adults is often overlooked and patient may benefit from medications, therapy, etc.. Patient verifies understanding. She has otherwise tolerated PO. She has not required any medications for psych/behavior thus far. Signed out pending placement to mental health facility. Zarina: Patient was signed out to me pending bed placement. She was accepted at [facility] under accepting physician Dr. Escalante. Bed will be available at 11:00 a.m. <Ochoa Srinivasan MD - Last Filed: 12/09/24 06:28> Differential Diagnosis Differential diagnosis: Likely suicide attempt by multiple drug overdose, drug overdose, acetaminophen overdose and other (suicidal ideation) <Erica Bazzi MD - Last Filed: 12/08/24 22:42> Lab Data Attestation: I reviewed the patient's lab results. <Erica Bazzi MD - Last Filed: 12/08/24 22:42> Result diagrams: 12/08/24 13:20 12/08/24 13:20 <Erica Bazzi MD - Last Filed: 12/08/24 22:42> Labs: Lab Results 12/08/24 12/08/24 Range/Units 13:20 15:31 WBC 5.6 (4.5-10.0) K/mm3 RBC 4.70 (4.2-5.4) M/mm3 Hgb 13.3 D (12.0-15.0) g/dL Hct 42.5 (37.0-47.0) % MCV 90.4 (80-100) fl MCH 28.3 (26-34) pg MCHC 31.3 L (32-36) g/dl RDW 15.6 H (11.5-14.5) % Plt Count 200 (150-375) k/mm3 MPV 11.6 H (7.4-10.4) fl Immature Gran % (Auto) 0.2 (0-0.5) % Neut % (Auto) 55.0 (45.5-73.1) % Lymph % (Auto) 30.6 (18.3-44.2) % [place] % (Auto) 10.2 H (2.6-8.5) % Eos % (Auto) 2.9 (0-4.4) % Baso % (Auto) 1.1 (0.2-1.2) % Lymph # (Auto) 1.71 (0.9-3.2) K/mm3 [place] # (Auto) 0.6 (0.1-0.6) K/mm3 Eos # (Auto) 0.2 (0-0.3) K/mm3 Baso # (Auto) 0.1 (0.0-0.1) K/mm3 Abs Immat Gran (auto) 0.01 (0.00-0.031) K/mm3 Absolute Neuts (auto) 3.1 (1.3-6.7) K/mm3 Absolute Nucleated RBC 0.000 (0.0-0.012) K/mm3 Nucleated RBC % 0.0 (0.0-0.2) % Sodium 134 L (137-145) mmol/L Potassium 4.8 (3.4-5.0) mmol/L Chloride 103 (98-107) mmol/L Carbon Dioxide 22 (22-30) mmol/L Anion Gap 9 (4-12) mmol/L BUN 24 H D (7-17) mg/dL Creatinine 0.83 (0.7-1.0) mg/dL Estim Creat Clear Calc 42 ml/min Estimated GFR > 60 (59 - ) Glucose 291 H (65-110) mg/dL Calcium 9.4 (8.4-10.2) mg/dL Magnesium 1.7 (1.6-2.3) mg/dL Total Bilirubin 0.5 (0.2-1.3) mg/dL AST 24 (14-36) U/L ALT 16 (6-35) U/L Alkaline Phosphatase 74 (38-126) U/L Troponin I < 0.012 (0.000-0.034) ng/mL Total Protein 7.2 (6.3-8.2) g/dL Albumin 3.8 (3.5-5.1) g/dL TSH (Reflex) 0.699 (0.465-4.68) uIU/mL Urine Color Yellow (Yellow) Urine Appearance Cloudy H (Clear) Urine pH 5.5 (5.0-9.0) Ur Specific [place] 1.023 (1.001-1.035) Urine Protein Negative (Negative) mg/dL Urine Glucose (UA) 3+ H (Negative) mg/dL Urine Ketones Negative (Negative) mg/dL Ur Blood (Man) Negative (Negative) Urine Nitrate Negative (Negative) Urine Bilirubin Negative (Negative) Urine Urobilinogen 0.2 (<2.0) mg/dL Leukocyte Esterase Rfl 1+ H (Negative) SHELELY/UL Urine RBC 0-2 (0-2) /hpf Urine WBC 21-50 H (0-3) /hpf Ur Squamous Epith Cells Occasional (Few) /hpf Urine Bacteria 4+ /hpf Urine Casts 0-2 Salicylates < 1.0 L (2-20) mg/dL Urine Opiates Screen Negative (Negative) Urine Methadone Screen Negative (Negative) Acetaminophen 50 H 27 (10-30) ug/mL Ur Barbiturates Screen Negative (Negative) Ur Phencyclidine Scrn Negative (Negative) Ur Amphetamine Screen Negative (Negative) U Benzodiazepines Scrn Negative (Negative) Urine Cocaine Screen Negative (Negative) U Cannabinoids Screen Negative (Negative) Ethyl Alcohol < 10 (<10) mg/dL Influenza A (RT-PCR) Negative (Negative) Influenza B (RT-PCR) Negative (Negative) RSV (RT-PCR) Negative (Negative) SARS-CoV-2 RNA (RT-PCR) Negative (Negative) <Erica Bazzi MD - Last Filed: 12/08/24 22:42> Lab Results 12/08/24 12/08/24 Range/Units 13:20 15:31 WBC 5.6 (4.5-10.0) K/mm3 RBC 4.70 (4.2-5.4) M/mm3 Hgb 13.3 D (12.0-15.0) g/dL Hct 42.5 (37.0-47.0) % MCV 90.4 (80-100) fl MCH 28.3 (26-34) pg MCHC 31.3 L (32-36) g/dl RDW 15.6 H (11.5-14.5) % Plt Count 200 (150-375) k/mm3 MPV 11.6 H (7.4-10.4) fl Immature Gran % (Auto) 0.2 (0-0.5) % Neut % (Auto) 55.0 (45.5-73.1) % Lymph % (Auto) 30.6 (18.3-44.2) % [place] % (Auto) 10.2 H (2.6-8.5) % Eos % (Auto) 2.9 (0-4.4) % Baso % (Auto) 1.1 (0.2-1.2) % Lymph # (Auto) 1.71 (0.9-3.2) K/mm3 [place] # (Auto) 0.6 (0.1-0.6) K/mm3 Eos # (Auto) 0.2 (0-0.3) K/mm3 Baso # (Auto) 0.1 (0.0-0.1) K/mm3 Abs Immat Gran (auto) 0.01 (0.00-0.031) K/mm3 Absolute Neuts (auto) 3.1 (1.3-6.7) K/mm3 Absolute Nucleated RBC 0.000 (0.0-0.012) K/mm3 Nucleated RBC % 0.0 (0.0-0.2) % Sodium 134 L (137-145) mmol/L Potassium 4.8 (3.4-5.0) mmol/L Chloride 103 (98-107) mmol/L Carbon Dioxide 22 (22-30) mmol/L Anion Gap 9 (4-12) mmol/L BUN 24 H D (7-17) mg/dL Creatinine 0.83 (0.7-1.0) mg/dL Estim Creat Clear Calc 42 ml/min Estimated GFR > 60 (59 - ) Glucose 291 H (65-110) mg/dL Calcium 9.4 (8.4-10.2) mg/dL Magnesium 1.7 (1.6-2.3) mg/dL Total Bilirubin 0.5 (0.2-1.3) mg/dL AST 24 (14-36) U/L ALT 16 (6-35) U/L Alkaline Phosphatase 74 (38-126) U/L Troponin I < 0.012 (0.000-0.034) ng/mL Total Protein 7.2 (6.3-8.2) g/dL Albumin 3.8 (3.5-5.1) g/dL TSH (Reflex) 0.699 (0.465-4.68) uIU/mL Urine Color Yellow (Yellow) Urine Appearance Cloudy H (Clear) Urine pH 5.5 (5.0-9.0) Ur Specific [place] 1.023 (1.001-1.035) Urine Protein Negative (Negative) mg/dL Urine Glucose (UA) 3+ H (Negative) mg/dL Urine Ketones Negative (Negative) mg/dL Ur Blood (Man) Negative (Negative) Urine Nitrate Negative (Negative) Urine Bilirubin Negative (Negative) Urine Urobilinogen 0.2 (<2.0) mg/dL Leukocyte Esterase Rfl 1+ H (Negative) [place]/UL Urine RBC 0-2 (0-2) /hpf Urine WBC 21-50 H (0-3) /hpf Ur Squamous Epith Cells Occasional (Few) /hpf Urine Bacteria 4+ /hpf Urine Casts 0-2 Salicylates < 1.0 L (2-20) mg/dL Urine Opiates Screen Negative (Negative) Urine Methadone Screen Negative (Negative) Acetaminophen 50 H 27 (10-30) ug/mL Ur Barbiturates Screen Negative (Negative) Ur Phencyclidine Scrn Negative (Negative) Ur Amphetamine Screen Negative (Negative) U Benzodiazepines Scrn Negative (Negative) Urine Cocaine Screen Negative (Negative) U Cannabinoids Screen Negative (Negative) Ethyl Alcohol < 10 (<10) mg/dL Influenza A (RT-PCR) Negative (Negative) Influenza B (RT-PCR) Negative (Negative) RSV (RT-PCR) Negative (Negative) SARS-CoV-2 RNA (RT-PCR) Negative (Negative) <Ochoa Srinivasan MD - Last Filed: 12/09/24 06:28> ECG Data EKG #1: Attestation: I personally reviewed and interpreted this ECG as follows: <Erica Bazzi MD - Last Filed: 12/08/24 22:42> ECG completion date: 12/08/24 <Erica Bazzi MD - Last Filed: 12/08/24 22:42> ECG completion time: 13:07 <Erica Bazzi MD - Last Filed: 12/08/24 22:42> Prior ECG tracings: available for review (Previous EKG showed RBBB and sinus david) <Erica Bazzi MD - Last Filed: 12/08/24 22:42> Interpretation: Sinus bradycardia at a rate of 40 beats per minute. WA interval is prolonged at 216 milliseconds consistent with a first-degree AV block. QRS 159. QT/QTC is prolonged at 549/450. RBBB given QRS greater [id number]; RSR' M-shaped pattern in V1-V3; wide, slurred S wave in lateral leads (I, aVL, V5-6). <Erica Bazzi MD - Last Filed: 12/08/24 22:42> Discharge Plan Discharge Clinical Impression: Suicide attempt by drug overdose, Intentional acetaminophen overdose, Intentional ibuprofen overdose, Diabetes mellitus with hyperglycemia, Pseudohyponatremia, UTI (urinary tract infection) <Erica Bazzi MD - Last Filed: 12/08/24 22:42> Patient Disposition: Psychiatric Hosp <Erica Bazzi MD - Last Filed: 12/08/24 22:42> Condition: Serious <Erica Bazzi MD - Last Filed: 12/08/24 22:42> Patient Language: Indian <Erica Bazzi MD - Last Filed: 12/08/24 22:42> Prescriptions: No Action (DME) FreeStyle Haritha 3 Mobile Misc See Rx Instructions .Route Qty: 2 1RF Rx Instructions: As directed rosuvastatin 10 mg tablet 10 mg PO QPM Qty: 90 3RF paroxetine HCl 20 mg tablet 30 mg PO DAILY Qty: 135 2RF trazodone 50 mg tablet 50 mg PO QHS Qty: 90 3RF enalapril maleate 10 mg tablet 10 mg PO DAILY Qty: 90 1RF memantine 10 mg tablet 10 mg PO BID Qty: 180 2RF insulin degludec 100 unit/mL (3 mL) insulin pen 18 unit subcut DAILY Qty: 15 2RF insulin aspart U-100 [Novolog FlexPen U-100 Insulin] 100 unit/mL (3 mL) insulin pen 6 unit subcut TIDWM Qty: 15 0RF aspirin 81 mg tablet,chewable 81 mg PO QPM Qty: 90 2RF furosemide 20 mg tablet 40 mg PO DAILY Qty: 30 5RF acetaminophen 500 mg tablet 1,000 mg PO TID PRN (Reason: arabella) 7 Days Qty: 42 0RF Gvoke HypoPen 1-Pack 1 mg/0.2 mL auto-injector 1 mg SUBCUT PRN PRN (Reason: blood sugar less than 60 unable to swallow) dextrose [Glucose Gel] 40 % gel 20 g PO Q15M PRN (Reason: hypoglycemia) Rx Instructions: until symptoms of low blood sugar are controlled blood sugar greater than 60 divalproex [Depakote] 125 mg tablet,delayed release (DR/EC) 125 mg PO BID Qty: 60 3RF (DME) pen needle, diabetic [BD Ultra-Fine Short Pen Needle] 31 gauge x 5/16 needle See Rx Instructions .Route Qty: 400 3RF Rx Instructions: inject qac and qhs Jardiance 10 mg tablet 10 mg PO DAILY Qty: 30 0RF (DME) FreeStyle Haritha 3 Plus Sensor Device See Rx Instructions .Route Qty: 1 6RF Rx Instructions: As directed <Erica Bazzi MD - Last Filed: 12/08/24 22:42> Follow-up/Referrals: Apolinar Paredes MD [Primary Care Provider, Family Practice] <Erica Bazzi MD - Last Filed: 12/08/24 22:42> Time of Disposition: 22:42 <Erica Bazzi MD - Last Filed: 12/08/24 22:42> 22:42 <Ochoa Srinivasan MD - Last Filed: 12/09/24 06:28>
--- OUTSIDE RECORDS SUMMARY | 2024-12-08 16:07 | XMS_ITS | Clinical Summary ---
Author Organization [facility] [address] Address [address] [place] [address] Care Team Providers Care Director Software Name Role Phone Catalina Mejia MD Primary Care Provider + [phone] Josef Groves MD Unavailable [phone] Allergies No known active allergies Medications [...] flash glucose scanning reader (Free[employer] Haritha 2 [place] [facility] [place] [...] (07/22/2020): Added automatically from request for surgery [id number] Chronic cholecystitis with calculus 03/27/2020 Calculus of gallbladder with chronic cholecystitis without obstruction 03/27/2020 Overview (03/27/2020): Added automatically from request for surgery [id number] Type 2 diabetes mellitus wit h hyperglycemia, with long-term current use of insulin ([facility]) 07/15/2017 Assessment & Plan (08/11/2022 4:37 [...] provided as she was driving back to [place]. Instructed not to drive until all 8 [...] rosuvastatin Assessment & Plan (05/27/2022 5:14 PM INFECTION CONTROL NURSE): This is a chronic condition which is [...] prescribed. Assessment & Plan (05/27/2022 5:15 PM INFECTION CONTROL NURSE): This is a chronic condition. goal - LDL less than 70 Continue rosuvastatin. Encouraged to eat healthy, include fresh fruits and vegetables daily and avoid eating fried foods more than once per week. Encouraged to take medications as prescribed. Repeat lipid panel ordered. Assessment & Plan (03/11/2018 8:31 AM INFECTION CONTROL NURSE): Continue statin and follow up with cardiology [...] prescribed. Assessment & Plan (05/27/2022 5:15 PM INFECTION CONTROL NURSE): This is a chronic condition which is [...] ARB Assessment & Plan (03/11/2018 8:31 AM INFECTION CONTROL NURSE): Controlled on current medications. Assessment & Plan [...] (10/05/2017): Added automatically from request for surgery [id number] Cellulitis of left lower extremity 12/28/2016 04/03/2020 [...] hba1c is under 7.0 to prevent intermediate diabetes complications ( eye , kidney and [...] Farxiga. Assessment & Plan (03/11/2018 8:30 AM INFECTION CONTROL NURSE): A1c is 9.5. Increase Levemir to 34 [...] goal hba1c is under 7.0 to prevent buttermaker diabetes complications ( eye , kidney and [...] History Date Comments Type 2 diabetes mellitus Diabete s type 2 Cellulitis 2017 left leg X [...] on file Legal Sex Female 10:56 AM INFECTION CONTROL NURSE Gender Identity Not on file Sexual Orientation Not on file Obstetrics History Last Filed Vital Signs Vital Sign Reading Time Taken Comments Blood Pressure 118/64 08/11/2022 4:01 PM CDT Pulse 65 05/26/2022 2:15 PM INFECTION CONTROL NURSE Temperature 36.3 C (97.3 F) 09/16/2020 8:32 AM CDT Respiratory Rate 15 09/16/2020 9:28 AM CDT Oxygen Saturation 97% 05/26/2022 2:15 PM INFECTION CONTROL NURSE Inhaled Oxygen Concentration - - Weight 81.2 kg (179 lb) 08/11/2022 4:01 PM CDT Height 162.6 cm (5' 4) 08/11/2022 4:01 PM CDT Body Mass Index 30.73 08/11/2022 4:01 PM CDT Plan of Treatment Health Maintenance Due Date Last Done Comments Osteoporosis Screening-Bone Density Scan 1945 Dilated Eye Exam 1945 Hepatitis B Screening 1962 Zoster Vaccine (1 of 2) 1994 Well Visit 65+ 2009 Pneumococcal vaccine 65+ (2 of 2 - PPSV23, PCV20, or PCV21) 03/21/2019 01/24/2019 Depression Screening 07/01/2019 06/30/2018, 07/16/19 18 Fall Risk Assessment 09/16/2021 09/16/2020 Hemoglobin A1C 02/11/2023 08/11/2022, 05/07, 04/03/2020, Additional history exists Albumin Creatinine Ratio, Urine 06/01/2023 , 09/11/2017 Foot Exam 08/12/2023 08/11/2022, 05/07, 03/10/2018, Additional history exists Influenza Vaccine (#1) 2024 01/24/2019 Lipid Panel 03/31/2025 03/31/2024, 05/07, 07/15/2017, Additional [...] Diagnosis Comments EGFR Routine 03/31/2024 10:51 AM INFECTION CONTROL NURSE LIPID PANEL Routine 03/31/2024 10:51 AM INFECTION CONTROL NURSE POCT HEMOGLOBIN A1C Routine 08/11/2022 4 :07 PM CDT Type 2 diabetes mellitus with hyperglycemia, with long-term current use of insulin (HCC) ALBUMIN CREATININE RATIO, URINE Routine 06/01/2022 8:10 AM INFECTION CONTROL NURSE Type 2 diabetes mellitus with hyperglycemia, with long-term current use of insulin (HCC) COLONOSCOPY 09/16/2020 8:22 AM CDT from Last 3 Months or Most Recently Relevant to Health Maintenance Results * eGFR (03/31/2024 10:51 AM INFECTION CONTROL NURSE) eGFR 82 >=60 mL/min/1. 73 m2 Comment: [...] reviewed 2021. Blood 03/31/2024 10:5 1 AM INFECTION CONTROL NURSE 03/31/2024 5:14 PM INFECTION CONTROL NURSE us Notinfile Unknown LAB BLOOD ORDERABLES Final Res ult [facility] [address] Department [place] [address] * Lipid panel (03/31/2024 10:51 AM INFECTION CONTROL NURSE) Cholesterol 177 30 - 199 mg/dL Comment: [...] [facility] Blood 03/31/2024 10:5 1 AM INFECTION CONTROL NURSE 03/31/2024 2:12 PM INFECTION CONTROL NURSE us Notinfile Unknown LAB BLOOD ORDERABLES Final Res ult [facility] [address] Department [place] [address] * POCT hemoglobin A1c (08/11/2022 4:07 PM CDT) Hemoglobin A1C, POC 7.2 % Blood 08/11/2022 4:07 PM CDT us Yennifer Cosby NP POINT OF CARE TEST ORDERABLES F inal Result * (ABNORMAL) Albumin Creatinine Ratio, Urine (06/01/2022 8:10 AM INFECTION CONTROL NURSE) Albumin Ur 112.4 mg/L [facility] ([place]) Comment: Interpretive Data No reference range established. Current interpretive data was last revised 2018. Testing performed by: [facility], [address] [place] [address]., [address] Creatinine Ur 107.2 mg/dL SY [facility] ([place]) Comment: Interpretive Data No reference range established. Current interpretive data was last revised 2018. Testing performed by: [facility], [address] [place] [address]., [address] Albumin Creatinine Ratio, Ur 105(H) 1 - 29 mg/g [facility] ([place]) Comment:Testing performed by : [facility], [address] [place] [address]., [address] Urine 06/01/2022 8:10 AM INFECTION CONTROL NURSE 06/01/2022 11:15 AM INFECTION CONTROL NURSE us Yennifer Cosby SERVICE STATION HELPER LAB URINE ORDERABLES Final Resu lt [facility] ([place]) [facility] Department [place] [address] * COLONOSCOPY (09/16/2020 8:22 AM CDT) Anatomical Region Laterality Modality Other Narrative Procedure Note Danitza Sawyer MD - 09/16/2020 8:22 AM CDT ENDOSCOPY LAB Patient Name: Ana M Junior Procedure Date: 09/16/2020 8:22 AM Admit Type: Outpatient Room: [facility] Date of : 1945 Instrument Name: [...] ofthe bowel preparation was evaluated using the BBPS([place] Bowel Preparation Scale) with scores of: RightColon [...] Recently Relevant to Health Maintenance [place] [address] [facility] MEDICARE [facility] [id number] [place] [address] [employer] [facility] MEDICARE [employer] [facility] [id number] MEDICARE Advance Directives For more information, please contact: [phone] * Full Code (Latest Code Status on File) Date Activated Date Inactivated Comments 09/16/2020 7:53 AM 09/16/2020 1:51 PM * Full Code Date Activated Date Inactivated Comments 04/08/2020 8:07 PM 04/09/2020 3:48 PM * Full Code Date Activated Date Inactivated Comments 12/04/2019 7:00 AM 12/04/2019 1:23 PM * Full Code Date Activated Date Inactivated Comments 10/02/2019 11:59 AM 10/02/2019 5:31 PM Care Teams Director Software Relationship Specialty Start Date End Date Catalina Mejia MD [address] [place] [address] PCP - General Internal Medicine 09/05/19 Josef Groves MD [address] [place] [address] Consulting Physician General Surgery 04/08/20
--- OUTSIDE RECORDS SUMMARY | 2024-12-08 16:07 | XMS_ITS | Encounter Summary ---
Author Organization [facility] Address [address] [place] [address] Care Team Providers Care Real Time Analyst Name Role Phone Unavailable Primary Care Provider Unavailabl e Encounter Details Date Type Department Care Team (Latest Contact Info) Description 05/20/[address] [facility] Max Chavez MD [address] [address] PULMONARY COLLAPSE (Primary Dx) Social History Tobacco Use Types Packs/Day Years Used Date Smoking Tobacco: Never Assessed Comments Unknown Sex and Gender Information Value Date Recorded Sex Assigned at Not on file Legal Sex Female 5:02 AM CARE TRAINER Gender Identity Not on file Sexual Orientation Not on file documented as of this encounter Plan of Treatment Not on file documented as of this encounter Visit Diagnoses Diagnosis Pulmonary collapse- Primary documented in this encounter
--- OUTSIDE RECORDS SUMMARY | 2024-12-08 16:07 | XMS_ITS | Encounter Summary ---
Author Organization [facility] Address [address] [place] [address] Care Team Providers Care Therapist Name Role Phone Unavailable Primary Care Provider Unavailabl e Encounter Details Date Type Department Care Team (Late st Contact Info) Description 04/15/2005 Outpatient Historical [facility] Supp [facility] Blood Flow [address] [place] [id number] Todd Chapin MD NO ADDRESS ON FILE Social History Tobacco Use Types Packs/Day Years Used Date Smoking Tobacco: Never Assessed Comments Unknown Sex and Gender Information Value Date Recorded Sex Assigned at Not on file Legal Sex Female 5:02 AM RECENTERER Gender Identity Not on file Sexual Orientation Not on file documented as of this encounter Plan of Treatment Not on file documented as of this encounter Visit Diagnoses Not on filedocumented in this encounter
--- OUTSIDE RECORDS SUMMARY | 2024-12-08 16:07 | XMS_ITS | Clinical Summary ---
Author Organization [facility] Address [address] [place] [address] Care Team Providers Care Sander Setter Name Role Phone Franco Randolph MD Unavailable [phone] Ernestina Luevano MD Primary Care Provider + Cirilo Buenrostro MD Unavailable [phone] Source Comments [facility],non-owned Affiliates and Associated Physician Practices is amultiple site organization consisting of ambulatory clinics and hospital sitesin [place], [place], [place] and [place]. This disclosure is being madepursuant to the Care Everywhere program and may not contain all information available regarding this patient. Last updated [facility] Allergies No known active allergies Medications * [...] daily 07/04/19 21 Active Continuous Blood Gluc Qi Specialist ([employer] Haritha [place]) JACK Inject 1 device subcutaneously continuous 05/27/19 [...] Overview: Added automatically from request for surgery [id number] Primary osteoarthritis of both knees 08/27/2017 DM type 2 with diabetic peripheral neuropathy Overview (08/27/2017): Last Assessment & Plan: Foot care discussed. 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 01/28/2017 Hx of [...] on file Legal Sex Female 6:14 AM COMMUNICATIONS CONTROLLER Gender Identity Not on file Sexual Orientation [...] 8:04 AM CDT Height 160 cm (5' 3) 08/17/2022 8:04 AM CDT Body Mass Index [...] CREATININE 08/19/20232022, 07/24/2022, 06/01/2022, Additional history exists DEPRESSION SCREENING 04/05/2024 DIABETES - URINE PROTEIN SCREENING 04/05/2024 06/01/2022 COVID-19 VACCINE ( season) 2024 INFLUENZA VACCINE (#1) 2024 HEPATITIS B VACCINE Aged Out No [...] this topic Medical Devices Implanted Type Area Knitter Operator Device Identifier Shelf Expiration Date Model / Serial / Lot Cmnt Bone Djo Srg Cblt 40gm Hvisc Strl Implanted:Qty: 1 on 08/17/2022 by Franco Radnolph MD at [facility] Left: Knee [employer] 11/27/2023 600-15-000 / / [id number] Cmpnt Ptlr Std 28mm 3 Pg Kn Ser A Implanted:Qty: 1 on 08/17/2022 by Franco Randolph MD at [facility] Left: Knee [employer] 05/07/2027 [id number] / / [id number] Tray Tib 75mm Kn Cocr I Beam Implanted:Qty: 1 on 08/17/2022 by Franco Randolph MD at [facility] Left: Knee [employer] 08/24/2031 [id number] / / [id number] Cmpnt Fem Kn Lt Cr Cmnt Prm Vngrd Intlk 67.5 Mm Implanted:Qty: 1 on 08/17/2022 by Franco Randolph MD at [facility] Left: Knee [employer] 06/02/2032 [id number] / / [id number] Brng [id number] Vngrd Arcm Kn Ant Stab Implanted:Qty: 1 on 08/17/2022 by Franco Randolph MD at [facility] Left: Knee [employer] 05/22/2027 [id number] / / [id number] Procedures Procedure Name Priority Date/Time Associated Diagnosis [...] MD LAB - CHEMISTRY ORDERABLES Final Result [facility] [address] [place] [address] from Last 3 Months or Most Recently Relevant to Health Maintenance Insurance [place] [id number] [facility] Address: [facility] [id number] [place] [address] [place] [id number] [employer] SELF PAY NO INSURANCE Member Subscriber Plan / Payer (Ef fective for All Dates) Name:Ana M Childress Member ID:Not on file Relation to Subscriber:Not on file Name:ANA M CHILDRESS Subscriber ID:Not on file (Home) Address: [address] [place] [address] [place] [address] Payer ID:Not on file Group ID:Not on file Type:Self Pay Address: [place], [place] [address] Advance Directives * Full Code (Latest Code Status on File) Date Activated Date Inactivated Comments 08/17/2022 1:40 PM 08/18/2022 4:20 PM Care Teams Sander Setter Relationship Specialty Start Date End Date Ernestina Luevano MD [address] [place] [address] PCP - General Family Medicine 06/03/22 [place] [address] [place] [address] Orthopedic Surgery 08/27/17 Cirilo Buenrostro MD [address] [place] [address] Medical Reception Specialist Cardiology 08/12/22
--- OUTSIDE RECORDS SUMMARY | 2024-12-08 16:07 | XMS_ITS | Clinical Summary ---
Author Organization [facility] Address [address] [place] [address] Care Team Providers Care Tobacco Stripper Hand Name Role Phone Unavailable Primary Care Provider Unavailabl e Social History Tobacco Use Types Packs/Day Years Used Date Smoking Tobacco: Never Assessed Comments Unknown Sex and Gender Information Value Date Recorded Sex Assigned at Not on file Legal Sex Female 5:02 AM HEALTH DIRECTOR Gender Identity Not on file Sexual Orientation Not on file Plan of Treatment Health Maintenance Due Date Last Done Comments DTAP/TDAP/TD VACCINES (1 - Tdap) 1964 PNEUMOCOCCAL VACCINE 50+ YEARS (1 of 1 - PCV) 03/28/19 94 ZOSTER VACCINE (1 of 2) 1994 OSTEOPOROSIS SCREENING 2009 RSV VACCINE (60+ or ) (1 - 1-dose 75+ series) 2019 INFLUENZA VACCINE (#1) 2024
--- OUTSIDE RECORDS SUMMARY | 2024-12-08 16:07 | XMS_ITS | Encounter Summary ---
Author Organization [facility] Address [address] [place] [address] Care Team Providers Care Loss Prevention Supervisor Name Role Phone Unavailable Primary Care Provider Unavailabl e Encounter Details Date Type Department Care Team (Late st Contact Info) Description 04/18/2005 Outpatient Historical [facility] Support Serv. (Adt Cardiology-[place]) [facility] [place] [address] Bladimir Monahan MD [address] [place] [address] Social History Tobacco Use Types Packs/Day Years Used Date Smoking Tobacco: Never Assessed Comments Unknown Sex and Gender Information Value Date Recorded Sex Assigned at Not on file Legal Sex Female 5:02 AM MEDIA PROFESSIONAL Gender Identity Not on file Sexual Orientation Not on file documented as of this encounter Plan of Treatment Not on file documented as of this encounter Visit Diagnoses Not on filedocumented in this encounter
--- OUTSIDE RECORDS SUMMARY | 2024-12-08 16:07 | XMS_ITS | Encounter Summary ---
Author Organization [facility] Address 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 Max Jhaveri MD [address] [facility] [address] [place] [address] Cirilo Buenrostro MD [address] [facility] [address] [place] [id number] CORON ATHEROSCL [place] CORON VESSEL (Primary Dx) Social History Tobacco Use Types Packs/Day Years Used Date Smoking Tobacco: Never Assessed Comments Unknown Sex and Gender Information Value Date Recorded Sex Assigned at Not on file Legal Sex Female 5:02 AM AUDIO VISUAL COLLECTIONS COORDINATOR Gender Identity Not on file Sexual Orientation Not on file documented as of this encounter Plan of Treatment Not on file documented as of this encounter Procedures Procedure Name Priority Date/Time Associated Diagnosis Comments POC GLUCOSE Routine 04/19/2005 5:35 AM AUDIO VISUAL COLLECTIONS COORDINATOR POC GLUCOSE Routine 04/18/2005 9:01 PM AUDIO VISUAL COLLECTIONS COORDINATOR POC GLUCOSE Routine 04/18/2005 4:37 PM AUDIO VISUAL COLLECTIONS COORDINATOR POC GLUCOSE Routine 04/18/2005 11:10 AM AUDIO VISUAL COLLECTIONS COORDINATOR POC GLUCOSE Routine 04/18/2005 5:32 AM AUDIO VISUAL COLLECTIONS COORDINATOR CBC WITH DIFFERENTIAL Routine 04/18/2005 5:00 AM AUDIO VISUAL COLLECTIONS COORDINATOR CBC WITH DIFFERENTIAL Routine 04/18/2005 5:00 AM AUDIO VISUAL COLLECTIONS COORDINATOR BASIC METABOLIC PANEL Routine 04/18/2005 5:00 AM AUDIO VISUAL COLLECTIONS COORDINATOR POC GLUCOSE Routine 04/17/2005 9:10 PM AUDIO VISUAL COLLECTIONS COORDINATOR CVR ONLY, CKMB/CK Routine 04/17/2005 7:3 9 PM AUDIO VISUAL COLLECTIONS COORDINATOR POC GLUCOSE Routine 04/17/2005 4:50 PM AUDIO VISUAL COLLECTIONS COORDINATOR POC GLUCOSE Routine 04/17/2005 11:06 AM AUDIO VISUAL COLLECTIONS COORDINATOR POC GLUCOSE Routine 04/17/2005 6:13 AM AUDIO VISUAL COLLECTIONS COORDINATOR POC GLUCOSE Routine 04/17/2005 4:45 AM AUDIO VISUAL COLLECTIONS COORDINATOR PT AND APTT Routine 04/17/2005 4:23 AM AUDIO VISUAL COLLECTIONS COORDINATOR CBC WITH DIFFERENTIAL Routine 04/17/2005 4:23 AM AUDIO VISUAL COLLECTIONS COORDINATOR CBC WITH DIFFERENTIAL Routine 04/17/2005 4:23 AM AUDIO VISUAL COLLECTIONS COORDINATOR MAGNESIUM LEVEL Routine 04/17/2005 4:23 AM AUDIO VISUAL COLLECTIONS COORDINATOR COMPREHENSIVE METABOLIC PANEL Routine 04/17/2005 4:23 AM AUDIO VISUAL COLLECTIONS COORDINATOR POC GLUCOSE Routine 04/17/2005 1:59 AM AUDIO VISUAL COLLECTIONS COORDINATOR CVR ONLY, CKMB/CK Routine 04/17/2005 1:0 0 AM AUDIO VISUAL COLLECTIONS COORDINATOR HEMOGLOBIN AND HEMATOCRIT Routine 04/17/2005 1:00 AM AUDIO VISUAL COLLECTIONS COORDINATOR POTASSIUM LEVEL Routine 04/17/2005 1:00 AM AUDIO VISUAL COLLECTIONS COORDINATOR POC GLUCOSE Routine 04/17/2005 12:53 AM AUDIO VISUAL COLLECTIONS COORDINATOR POC GLUCOSE Routine 04/16/2005 11:21 PM AUDIO VISUAL COLLECTIONS COORDINATOR POC GLUCOSE Routine 04/16/2005 10:17 PM AUDIO VISUAL COLLECTIONS COORDINATOR POC GLUCOSE Routine 04/16/2005 9:29 PM AUDIO VISUAL COLLECTIONS COORDINATOR POC, BLOOD GASES Routine 04/16/2005 8:45 PM AUDIO VISUAL COLLECTIONS COORDINATOR POC GLUCOSE Routine 04/16/2005 8:26 PM AUDIO VISUAL COLLECTIONS COORDINATOR POTASSIUM LEVEL Routine 04/16/2005 8:00 PM AUDIO VISUAL COLLECTIONS COORDINATOR MAGNESIUM LEVEL Routine 04/16/2005 8:00 PM AUDIO VISUAL COLLECTIONS COORDINATOR POC GLUCOSE Routine 04/16/2005 7:51 PM AUDIO VISUAL COLLECTIONS COORDINATOR POC GLUCOSE Routine 04/16/2005 6:31 PM AUDIO VISUAL COLLECTIONS COORDINATOR POC GLUCOSE Routine 04/16/2005 5:36 PM AUDIO VISUAL COLLECTIONS COORDINATOR POC GLUCOSE Routine 04/16/2005 4:19 PM AUDIO VISUAL COLLECTIONS COORDINATOR POC, BLOOD GASES Routine 04/16/2005 4:05 PM AUDIO VISUAL COLLECTIONS COORDINATOR CVR ONLY, CKMB/CK Routine 04/16/2005 3:5 7 PM AUDIO VISUAL COLLECTIONS COORDINATOR PT AND APTT Routine 04/16/2005 3:57 PM AUDIO VISUAL COLLECTIONS COORDINATOR CBC WITH DIFFERENTIAL Routine 04/16/2005 3:57 PM AUDIO VISUAL COLLECTIONS COORDINATOR CBC WITH DIFFERENTIAL Routine 04/16/2005 3:57 PM AUDIO VISUAL COLLECTIONS COORDINATOR MAGNESIUM LEVEL Routine 04/16/2005 3:57 PM AUDIO VISUAL COLLECTIONS COORDINATOR BASIC METABOLIC PANEL Routine 04/16/2005 3:57 PM AUDIO VISUAL COLLECTIONS COORDINATOR LIPID PANEL Routine 04/16/2005 6:10 AM AUDIO VISUAL COLLECTIONS COORDINATOR URINALYSIS W/REFLEX MICROSCOPIC Routine 04/15/2005 4:23 PM AUDIO VISUAL COLLECTIONS COORDINATOR BASIC METABOLIC PANEL PLUS Routine 04/15/2005 12:40 PM AUDIO VISUAL COLLECTIONS COORDINATOR PT AND APTT Routine 04/15/2005 12:40 PM AUDIO VISUAL COLLECTIONS COORDINATOR CBC WITH DIFFERENTIAL Routine 04/15/2005 12:40 PM AUDIO VISUAL COLLECTIONS COORDINATOR CBC WITH DIFFERENTIAL Routine 04/15/2005 12:40 PM AUDIO VISUAL COLLECTIONS COORDINATOR BASIC METABOLIC PANEL Routine 04/15/2005 12:40 PM AUDIO VISUAL COLLECTIONS COORDINATOR documented in this encounter Results * (ABNORMAL) POC GLUCOSE (04/19/2005 5:35 AM AUDIO VISUAL COLLECTIONS COORDINATOR) COMMENT, GLU POC Notified RN INTERFACE SYSTEM GLUCOSE POC 142(H) 65 - 109 mg/dL INTERFACE SYSTEM 04/19/2005 5:35 AM AUDIO VISUAL COLLECTIONS COORDINATOR Cirilo Buenrostro MD POINT OF CARE TESTING Fin al Result Performing Organization Address [facility] de Phone Number INTERFACE SYSTEM Refer to clinic/hospital department * (ABNORMAL) POC GLUCOSE (04/18/2005 9:01 PM AUDIO VISUAL COLLECTIONS COORDINATOR) COMMENT, GLU POC Notified RN INTERFACE SYSTEM GLUCOSE POC 221(H) 65 - 109 mg/dL INTERFACE SYSTEM 04/18/2005 9:01 PM AUDIO VISUAL COLLECTIONS COORDINATOR Cirilo Buenrostro MD POINT OF CARE TESTING Fin al Result Performing Organization Address [facility] de Phone Number INTERFACE SYSTEM Refer to clinic/hospital department * (ABNORMAL) POC GLUCOSE (04/18/2005 4:37 PM AUDIO VISUAL COLLECTIONS COORDINATOR) GLUCOSE POC 170(H) 65 - 109 mg/dL INTERFACE SYSTEM 04/18/2005 4:37 PM AUDIO VISUAL COLLECTIONS COORDINATOR Cirilo Buenrostro MD POINT OF CARE TESTING Fin al Result Performing Organization Address [facility] de Phone Number INTERFACE SYSTEM Refer to clinic/hospital department * (ABNORMAL) POC GLUCOSE (04/18/2005 11:10 AM AUDIO VISUAL COLLECTIONS COORDINATOR) COMMENT, GLU POC Notified RN INTERFACE SYSTEM GLUCOSE POC 220(H) 65 - 109 mg/dL INTERFACE SYSTEM 04/18/2005 11:1 0 AM AUDIO VISUAL COLLECTIONS COORDINATOR Cirilo Buenrostro MD POINT OF CARE TESTING Fin al Result Performing Organization Address [facility] Phone Number INTERFACE SYSTEM Refer to clinic/hospital department * (ABNORMAL) POC GLUCOSE (04/18/2005 5:32 AM AUDIO VISUAL COLLECTIONS COORDINATOR) GLUCOSE POC 193(H) 65 - 109 mg/dL INTERFACE SYSTEM 04/18/2005 5:32 AM AUDIO VISUAL COLLECTIONS COORDINATOR Cirilo Buenrostro MD POINT OF CARE TESTING Fin al Result Performing Organization Address [facility] Phone Number INTERFACE SYSTEM Refer to clinic/hospital department * (ABNORMAL) CBC WITH DIFFERENTIAL (04/18/2005 5:00 AM AUDIO VISUAL COLLECTIONS COORDINATOR) NEUTROPHIL ABSOLUTE 5.67 1.90 - 7.00 K/uL [...] Normal INTER FACE SYSTEM 04/18/2005 5:00 AM AUDIO VISUAL COLLECTIONS COORDINATOR Cirilo Buenrostro MD HEMATOLOGY ORDERABLES Fin al Result Performing Organization Address [facility] Phone Number INTERFACE SYSTEM Refer to clinic/hospital department * (ABNORMAL) CBC WITH DIFFERENTIAL (04/18/2005 5:00 AM AUDIO VISUAL COLLECTIONS COORDINATOR) WBC 7.0 4.0 - 9.8 K/uL INTERFACE [...] 12.4 fL INTERFACE SYSTEM 04/18/2005 5:00 AM AUDIO VISUAL COLLECTIONS COORDINATOR Cirilo Buenrostro MD HEMATOLOGY ORDERABLES Fin al Result Performing Organization Address [facility] Phone Number INTERFACE SYSTEM Refer to clinic/hospital department * (ABNORMAL) BASIC METABOLIC PANEL (04/18/2005 5:00 AM AUDIO VISUAL COLLECTIONS COORDINATOR) GLUCOSE 186(H) 65 - 109 mg/dL INTERFACE [...] 30 mmol/L INTERFACE SYSTEM 04/18/2005 5:00 AM AUDIO VISUAL COLLECTIONS COORDINATOR Cirilo Buenrostro MD CHEMISTRY ORDERABLES Sommer l Result Performing Organization Address [facility] Co de Phone Number INTERFACE SYSTEM Refer to clinic/hospital department * (ABNORMAL) POC GLUCOSE (04/17/2005 9:10 PM AUDIO VISUAL COLLECTIONS COORDINATOR) GLUCOSE POC 261(H) 65 - 109 mg/dL INTERFACE SYSTEM 04/17/2005 9:10 PM AUDIO VISUAL COLLECTIONS COORDINATOR Cirilo Buenrostro MD POINT OF CARE TESTING Fin al Result Performing Organization Address [facility] de Phone Number INTERFACE SYSTEM Refer to clinic/hospital department * (ABNORMAL) CVR ONLY, CKMB/CK (04/17/2005 7:39 PM AUDIO VISUAL COLLECTIONS COORDINATOR) CKMB 7.5(AA) <=3.8 ng/mL INTERFACE SYSTEM Comment:Persistent abnormal result CKMB INTERP See Below INTERFAC E SYSTEM Comment:Elevated CKMB,consis tent with Myocardial Injury CK 339(H) 10 - 145 U/L INTERFACE SYSTEM CARDIAC RELATIVE INDEX 2.2 <=4.0 INTERFACE SYSTEM 04/17/2005 7:39 PM AUDIO VISUAL COLLECTIONS COORDINATOR Max Jhaveri MD CHEMISTRY ORDERABLES Final Re sult Performing Organization Address [facility] Phone Number INTERFACE SYSTEM Refer to clinic/hospital department * (ABNORMAL) POC GLUCOSE (04/17/2005 4:50 PM AUDIO VISUAL COLLECTIONS COORDINATOR) GLUCOSE POC 228(H) 65 - 109 mg/dL INTERFACE SYSTEM 04/17/2005 4:50 PM AUDIO VISUAL COLLECTIONS COORDINATOR Cirilo Buenrostro MD POINT OF CARE TESTING Fin al Result Performing Organization Address [facility] de Phone Number INTERFACE SYSTEM Refer to clinic/hospital department * (ABNORMAL) POC GLUCOSE (04/17/2005 11:06 AM AUDIO VISUAL COLLECTIONS COORDINATOR) GLUCOSE POC 141(H) 65 - 109 mg/dL INTERFACE SYSTEM 04/17/2005 11:0 6 AM AUDIO VISUAL COLLECTIONS COORDINATOR Cirilo Buenrostro MD POINT OF CARE TESTING Fin al Result Performing Organization Address [facility] de Phone Number INTERFACE SYSTEM Refer to clinic/hospital department * (ABNORMAL) POC GLUCOSE (04/17/2005 6:13 AM AUDIO VISUAL COLLECTIONS COORDINATOR) GLUCOSE POC 115(H) 65 - 109 mg/dL INTERFACE SYSTEM 04/17/2005 6:13 AM AUDIO VISUAL COLLECTIONS COORDINATOR Cirilo Buenrostro MD POINT OF CARE TESTING Fin al Result Performing Organization Address [facility] de Phone Number INTERFACE SYSTEM Refer to clinic/hospital department * POC GLUCOSE (04/17/2005 4:45 AM AUDIO VISUAL COLLECTIONS COORDINATOR) GLUCOSE POC 99 65 - 109 mg/dL INTERFACE SYSTEM 04/17/2005 4:45 AM AUDIO VISUAL COLLECTIONS COORDINATOR Cirilo Buenrostro MD POINT OF CARE TESTING Fin al Result Performing Organization Address [facility] Phone Number INTERFACE SYSTEM Refer to clinic/hospital department * (ABNORMAL) CBC WITH DIFFERENTIAL (04/17/2005 4:23 AM AUDIO VISUAL COLLECTIONS COORDINATOR) NEUTROPHILS 83(H) 45 - 70 % INTERFAC [...] 0.20 K/uL INTERFACE SYSTEM 04/17/2005 4:23 AM AUDIO VISUAL COLLECTIONS COORDINATOR Max Jhaveri MD HEMATOLOGY ORDERABLES Final R esult Performing Organization Address [facility] de Phone Number INTERFACE SYSTEM Refer to clinic/hospital department * (ABNORMAL) CBC WITH DIFFERENTIAL (04/17/2005 4:23 AM AUDIO VISUAL COLLECTIONS COORDINATOR) WBC 8.5 4.0 - 9.8 K/uL INTERFACE [...] 12.4 fL INTERFACE SYSTEM 04/17/2005 4:23 AM AUDIO VISUAL COLLECTIONS COORDINATOR Max Jhaveri MD HEMATOLOGY ORDERABLES Final R esult Performing Organization Address [facility] Phone Number INTERFACE SYSTEM Refer to clinic/hospital department * MAGNESIUM LEVEL (04/17/2005 4:23 AM AUDIO VISUAL COLLECTIONS COORDINATOR) MAGNESIUM 1.8 1.5 - 2.5 mg/dL INTERFACE SYSTEM 04/17/2005 4:23 AM AUDIO VISUAL COLLECTIONS COORDINATOR Max Jhaveri MD CHEMISTRY ORDERABLES Final Re sult Performing Organization Address [facility] Phone Number INTERFACE SYSTEM Refer to clinic/hospital department * (ABNORMAL) PT AND APTT (04/17/2005 4:23 AM AUDIO VISUAL COLLECTIONS COORDINATOR) PROTIME 16.4(H) 12.7 - 15.1 Seconds INTERFACE SYSTEM INR 1.2(H) 0.9 - 1.1 INTERFACE SYSTEM Comment: INR Therapeutic Range: Adult: 2.0 - 3.0 for pulmonary embolism or prophylaxis against venous thrombosis or systemic embolization. 2.0 - 3.0 for patients with tissue heart valves. 2.5 - 3.5 for patients with mechanical heart valves or post [place]. Pediatric (12 years and under): 1.5 - [...] range for unfractionated heparin 04/17/2005 4:23 AM AUDIO VISUAL COLLECTIONS COORDINATOR Max Jhaveri MD HEMATOLOGY ORDERABLES Final R esult Performing Organization Address [facility]/ZIP Co de Phone Number INTERFACE SYSTEM Refer to clinic/hospital department * (ABNORMAL) COMPREHENSIVE METABOLIC PANEL (04/17/2005 4:23 AM AUDIO VISUAL COLLECTIONS COORDINATOR) GLUCOSE 101 65 - 109 mg/dL INTERFACE [...] 30 mmol/L INTERFACE SYSTEM 04/17/2005 4:23 AM AUDIO VISUAL COLLECTIONS COORDINATOR Max Jhaveri MD CHEMISTRY ORDERABLES Final Re sult Performing Organization Address [facility]/ZIP Co de Phone Number INTERFACE SYSTEM Refer to clinic/hospital department * (ABNORMAL) POC GLUCOSE (04/17/2005 1:59 AM AUDIO VISUAL COLLECTIONS COORDINATOR) GLUCOSE POC 134(H) 65 - 109 mg/dL INTERFACE SYSTEM 04/17/2005 1:59 AM AUDIO VISUAL COLLECTIONS COORDINATOR Cirilo Buenrostro MD POINT OF CARE TESTING Fin al Result Performing Organization Address [facility] Phone Number INTERFACE SYSTEM Refer to clinic/hospital department * (ABNORMAL) HEMOGLOBIN AND HEMATOCRIT (04/17/2005 1:00 AM AUDIO VISUAL COLLECTIONS COORDINATOR) HEMOGLOBIN 11.8 11.8 - 14.8 g/dL INTERFACE SYSTEM HEMATOCRIT 35.3(L) 35.5 - 44.0 % INTERFACE SYSTEM 04/17/2005 1:00 AM AUDIO VISUAL COLLECTIONS COORDINATOR Max Jhaveri MD HEMATOLOGY ORDERABLES Final R esult Performing Organization Address [facility] Phone Number INTERFACE SYSTEM Refer to clinic/hospital department * POTASSIUM LEVEL (04/17/2005 1:00 AM AUDIO VISUAL COLLECTIONS COORDINATOR) Pathologist [facility] POTASSIUM 4.1 3.5 - 4.9 mmol/L INTERFACE SYSTEM 04/17/2005 1:00 AM AUDIO VISUAL COLLECTIONS COORDINATOR Max Jhaveri MD CHEMISTRY ORDERABLES Final Re sult Performing Organization Address [facility] Phone Number INTERFACE SYSTEM Refer to clinic/hospital department * (ABNORMAL) CVR ONLY, CKMB/CK (04/17/2005 1:00 AM AUDIO VISUAL COLLECTIONS COORDINATOR) CKMB 22.5(AA) <=3.8 ng/mL INTERFACE SYSTEM Comment:Persistent abnormal result CKMB INTERP See Below INTERFAC E SYSTEM Comment:Elevated CKMB,consis tent with Myocardial Injury CK 325(H) 10 - 145 U/L INTERFACE SYSTEM CARDIAC RELATIVE INDEX 6.9(H) <=4.0 INTERFACE SYSTEM 04/17/2005 1:00 AM AUDIO VISUAL COLLECTIONS COORDINATOR Max Jhaveri MD CHEMISTRY ORDERABLES Final Re sult Performing Organization Address [facility]/ZIP Co de Phone Number INTERFACE SYSTEM Refer to clinic/hospital department * (ABNORMAL) POC GLUCOSE (04/17/2005 12:53 AM AUDIO VISUAL COLLECTIONS COORDINATOR) GLUCOSE POC 145(H) 65 - 109 mg/dL INTERFACE SYSTEM 04/17/2005 12:5 3 AM AUDIO VISUAL COLLECTIONS COORDINATOR Cirilo Buenrostro MD POINT OF CARE TESTING Fin al Result Performing Organization Address [facility] de Phone Number INTERFACE SYSTEM Refer to clinic/hospital department * (ABNORMAL) POC GLUCOSE (04/16/2005 11:21 PM AUDIO VISUAL COLLECTIONS COORDINATOR) GLUCOSE POC 160(H) 65 - 109 mg/dL INTERFACE SYSTEM 04/16/2005 11:2 1 PM AUDIO VISUAL COLLECTIONS COORDINATOR Cirilo Buenrostro MD POINT OF CARE TESTING Fin al Result Performing Organization Address [facility] de Phone Number INTERFACE SYSTEM Refer to clinic/hospital department * (ABNORMAL) POC GLUCOSE (04/16/2005 10:17 PM AUDIO VISUAL COLLECTIONS COORDINATOR) GLUCOSE POC 159(H) 65 - 109 mg/dL INTERFACE SYSTEM 04/16/2005 10:1 7 PM AUDIO VISUAL COLLECTIONS COORDINATOR Cirilo Buenrostro MD POINT OF CARE TESTING Fin al Result Performing Organization Address [facility] de Phone Number INTERFACE SYSTEM Refer to clinic/hospital department * (ABNORMAL) POC GLUCOSE (04/16/2005 9:29 PM AUDIO VISUAL COLLECTIONS COORDINATOR) GLUCOSE POC 178(H) 65 - 109 mg/dL INTERFACE SYSTEM 04/16/2005 9:29 PM AUDIO VISUAL COLLECTIONS COORDINATOR Cirilo Buenrostro MD POINT OF CARE TESTING Fin al Result Performing Organization Address [facility] de Phone Number INTERFACE SYSTEM Refer to clinic/hospital department * (ABNORMAL) POC RT, BLOOD GASES (04/16/2005 8:45 PM AUDIO VISUAL COLLECTIONS COORDINATOR) PH ARTERIAL 7.40 7.35 - 7.45 INTERFACE [...] RN AWARE INTERFACE SYSTEM 04/16/2005 8:45 PM AUDIO VISUAL COLLECTIONS COORDINATOR Cirilo Buenrostro MD CHEMISTRY ORDERABLES Sommer l Result Performing Organization Address [facility] Co de Phone Number INTERFACE SYSTEM Refer to clinic/hospital department * (ABNORMAL) POC GLUCOSE (04/16/2005 8:26 PM AUDIO VISUAL COLLECTIONS COORDINATOR) GLUCOSE POC 190(H) 65 - 109 mg/dL INTERFACE SYSTEM 04/16/2005 8:26 PM AUDIO VISUAL COLLECTIONS COORDINATOR Cirilo Buenrostro MD POINT OF CARE TESTING Fin al Result Performing Organization Address [facility] de Phone Number INTERFACE SYSTEM Refer to clinic/hospital department * POTASSIUM LEVEL (04/16/2005 8:00 PM AUDIO VISUAL COLLECTIONS COORDINATOR) POTASSIUM 3.8 3.5 - 4.9 mmol/L INTERFACE SYSTEM Comment: Testing was performed on Serum. Specimen of choice is [place] Heparinized Plasma. Serum Potassium Reference Range: 5 years - 150 years 3.5 - 5.0 mmol/L 1 year - 5 years 3.4 - 4.7 mmol/L 15 days - 1 year 4.1 - 5.3 mmol/L 0 days - 15 days 3.7 - 5.9 mmol/L 04/16/2005 8:00 PM AUDIO VISUAL COLLECTIONS COORDINATOR Max Jhaveri MD CHEMISTRY ORDERABLES Final Re sult Performing Organization Address [facility] Phone Number INTERFACE SYSTEM Refer to clinic/hospital department * MAGNESIUM LEVEL (04/16/2005 8:00 PM AUDIO VISUAL COLLECTIONS COORDINATOR) MAGNESIUM 2.1 1.5 - 2.5 mg/dL INTERFACE SYSTEM 04/16/2005 8:00 PM AUDIO VISUAL COLLECTIONS COORDINATOR Max Jhaveri MD CHEMISTRY ORDERABLES Final Re sult Performing Organization Address [facility] Phone Number INTERFACE SYSTEM Refer to clinic/hospital department * (ABNORMAL) POC GLUCOSE (04/16/2005 7:51 PM AUDIO VISUAL COLLECTIONS COORDINATOR) GLUCOSE POC 186(H) 65 - 109 mg/dL INTERFACE SYSTEM 04/16/2005 7:51 PM AUDIO VISUAL COLLECTIONS COORDINATOR Cirilo Buenrostro MD POINT OF CARE TESTING Fin al Result Performing Organization Address [facility] Phone Number INTERFACE SYSTEM Refer to clinic/hospital department * (ABNORMAL) POC GLUCOSE (04/16/2005 6:31 PM AUDIO VISUAL COLLECTIONS COORDINATOR) GLUCOSE POC 167(H) 65 - 109 mg/dL INTERFACE SYSTEM 04/16/2005 6:31 PM AUDIO VISUAL COLLECTIONS COORDINATOR Cirilo Buenrostro MD POINT OF CARE TESTING Fin al Result Performing Organization Address [facility] de Phone Number INTERFACE SYSTEM Refer to clinic/hospital department * (ABNORMAL) POC GLUCOSE (04/16/2005 5:36 PM AUDIO VISUAL COLLECTIONS COORDINATOR) GLUCOSE POC 148(H) 65 - 109 mg/dL INTERFACE SYSTEM 04/16/2005 5:36 PM AUDIO VISUAL COLLECTIONS COORDINATOR Cirilo Buenrostro MD POINT OF CARE TESTING Fin al Result Performing Organization Address [facility] de Phone Number INTERFACE SYSTEM Refer to clinic/hospital department * (ABNORMAL) POC GLUCOSE (04/16/2005 4:19 PM AUDIO VISUAL COLLECTIONS COORDINATOR) GLUCOSE POC 143(H) 65 - 109 mg/dL INTERFACE SYSTEM 04/16/2005 4:19 PM AUDIO VISUAL COLLECTIONS COORDINATOR Cirilo Buenrostro MD POINT OF CARE TESTING Fin al Result Performing Organization Address [facility] de Phone Number INTERFACE SYSTEM Refer to clinic/hospital department * (ABNORMAL) POC RT, BLOOD GASES (04/16/2005 4:05 PM AUDIO VISUAL COLLECTIONS COORDINATOR) PH ARTERIAL 7.44 7.35 - 7.45 INTERFACE [...] RN NOTIFIED INTERFACE SYSTEM 04/16/2005 4:05 PM AUDIO VISUAL COLLECTIONS COORDINATOR Cirilo Buenrostro MD CHEMISTRY ORDERABLES Sommer l Result Performing Organization Address [facility] Co de Phone Number INTERFACE SYSTEM Refer to clinic/hospital department * (ABNORMAL) CVR ONLY, CKMB/CK (04/16/2005 3:57 PM AUDIO VISUAL COLLECTIONS COORDINATOR) CKMB 28.2(AA) <=3.8 ng/mL INTERFACE SYSTEM Comment:Results called to ba rb at 04/16/2005 4:50 PM and read back verified. CKMB INTERP See Below INTERFAC E SYSTEM Comment:Elevated CKMB,consis tent with Myocardial Injury. CK 234(H) 10 - 145 U/L INTERFACE SYSTEM CARDIAC RELATIVE INDEX 12.0(H) <=4.0 INTERFACE SYSTEM 04/16/2005 3:57 PM AUDIO VISUAL COLLECTIONS COORDINATOR Max Jhaveri MD CHEMISTRY ORDERABLES Final Re sult Performing Organization Address [facility] Phone Number INTERFACE SYSTEM Refer to clinic/hospital department * (ABNORMAL) CBC WITH DIFFERENTIAL (04/16/2005 3:57 PM AUDIO VISUAL COLLECTIONS COORDINATOR) NEUTROPHILS 77(H) 45 - 70 % INTERFAC [...] 0.20 K/uL INTERFACE SYSTEM 04/16/2005 3:57 PM AUDIO VISUAL COLLECTIONS COORDINATOR Max Jhaveri MD HEMATOLOGY ORDERABLES Final R esult Performing Organization Address [facility] de Phone Number INTERFACE SYSTEM Refer to clinic/hospital department * (ABNORMAL) CBC WITH DIFFERENTIAL (04/16/2005 3:57 PM AUDIO VISUAL COLLECTIONS COORDINATOR) WBC 8.3 4.0 - 9.8 K/uL INTERFACE [...] 12.4 fL INTERFACE SYSTEM 04/16/2005 3:57 PM AUDIO VISUAL COLLECTIONS COORDINATOR Max Jhaveri MD HEMATOLOGY ORDERABLES Final R esult Performing Organization Address [facility] Phone Number INTERFACE SYSTEM Refer to clinic/hospital department * (ABNORMAL) PT AND APTT (04/16/2005 3:57 PM AUDIO VISUAL COLLECTIONS COORDINATOR) PROTIME 17.9(H) 12.7 - 15.1 Seconds INTERFACE SYSTEM INR 1.4(H) 0.9 - 1.1 INTERFACE SYSTEM Comment: INR Therapeutic Range: Adult: 2.0 - 3.0 for pulmonary embolism or prophylaxis against venous thrombosis or systemic embolization. 2.0 - 3.0 for patients with tissue heart valves. 2.5 - 3.5 for patients with mechanical heart valves or post [place]. Pediatric (12 years and under): 1.5 - [...] range for unfractionated heparin 04/16/2005 3:57 PM AUDIO VISUAL COLLECTIONS COORDINATOR Max Jhaveri MD HEMATOLOGY ORDERABLES Final R esult Performing Organization Address [facility] de Phone Number INTERFACE SYSTEM Refer to clinic/hospital department * MAGNESIUM LEVEL (04/16/2005 3:57 PM AUDIO VISUAL COLLECTIONS COORDINATOR) MAGNESIUM 1.9 1.5 - 2.5 mg/dL INTERFACE SYSTEM 04/16/2005 3:57 PM AUDIO VISUAL COLLECTIONS COORDINATOR Max Jhaveri MD CHEMISTRY ORDERABLES Final Re sult Performing Organization Address [facility] Phone Number INTERFACE SYSTEM Refer to clinic/hospital department * (ABNORMAL) BASIC METABOLIC PANEL (04/16/2005 3:57 PM AUDIO VISUAL COLLECTIONS COORDINATOR) GLUCOSE 142(H) 65 - 109 mg/dL INTERFACE [...] and redraw if necessary. 04/16/2005 3:57 PM AUDIO VISUAL COLLECTIONS COORDINATOR Max Jhaveri MD CHEMISTRY ORDERABLES Final Re sult Performing Organization Address [facility] Phone Number INTERFACE SYSTEM Refer to clinic/hospital department * LIPID PANEL (04/16/2005 6:10 AM AUDIO VISUAL COLLECTIONS COORDINATOR) LIPID PANEL COMMENT See below INTERFACE SYSTEM [...] section for risk classifications. 04/16/2005 6:10 AM AUDIO VISUAL COLLECTIONS COORDINATOR Cirilo Buenrostro MD CHEMISTRY ORDERABLES Sommer l Result Performing Organization Address [facility] Phone Number INTERFACE SYSTEM Refer to clinic/hospital department * (ABNORMAL) URINALYSIS (04/15/2005 4:23 PM AUDIO VISUAL COLLECTIONS COORDINATOR) COLOR UA Yellow INTERFACE SYSTEM CLARITY UA [...] Seen /HPF INTERFACE SYSTEM 04/15/2005 4:23 PM AUDIO VISUAL COLLECTIONS COORDINATOR Cirilo Buenrostro MD URINE ORDERABLES Final Re sult Performing Organization Address [facility] Phone Number INTERFACE SYSTEM Refer to clinic/hospital department * BASIC METABOLIC PANEL PLUS (04/15/2005 12:40 PM AUDIO VISUAL COLLECTIONS COORDINATOR) AST 21 12 - 32 U/L INTERFACE SYSTEM ALKALINE PHOSPHATASE 65 35 - 104 U/L INTERFACE SYSTEM BILIRUBIN TOTAL 0.3 0.2 - 1.0 mg/dL INTERFACE SYSTEM ALBUMIN 4.0 3.4 - 4.8 g/dL INTERFACE SYSTEM TOTAL PROTEIN 7.3 6.3 - 8.6 g/dL INTERFACE SYSTEM ALT 20 0 - 31 U/L INTERFACE SYSTEM 04/15/2005 12:4 0 PM AUDIO VISUAL COLLECTIONS COORDINATOR Cirilo Buenrostro MD CHEMISTRY ORDERABLES Sommer l Result Performing Organization Address [facility] de Phone Number INTERFACE SYSTEM Refer to clinic/hospital department * CBC WITH DIFFERENTIAL (04/15/2005 12:40 PM AUDIO VISUAL COLLECTIONS COORDINATOR) NEUTROPHILS 56 45 - 70 % INTERFAC [...] K/uL INTERFACE SYSTEM 04/15/2005 12:4 0 PM AUDIO VISUAL COLLECTIONS COORDINATOR Cirilo Buenrostro MD HEMATOLOGY ORDERABLES Fin al Result Performing Organization Address [facility] de Phone Number INTERFACE SYSTEM Refer to clinic/hospital department * (ABNORMAL) CBC WITH DIFFERENTIAL (04/15/2005 12:40 PM AUDIO VISUAL COLLECTIONS COORDINATOR) WBC 3.7(L) 4.0 - 9.8 K/uL INTERFACE [...] fL INTERFACE SYSTEM 04/15/2005 12:4 0 PM AUDIO VISUAL COLLECTIONS COORDINATOR Cirilo Buenrostro MD HEMATOLOGY ORDERABLES Fin al Result Performing Organization Address [facility] de Phone Number INTERFACE SYSTEM Refer to clinic/hospital department * PT AND APTT (04/15/2005 12:40 PM AUDIO VISUAL COLLECTIONS COORDINATOR) PROTIME 14.8 12.7 - 15.1 Seconds INTERFACE SYSTEM INR 1.1 0.9 - 1.1 INTERFACE SYSTEM Comment: INR Therapeutic Range: Adult: 2.0 - 3.0 for pulmonary embolism or prophylaxis against venous thrombosis or systemic embolization. 2.0 - 3.0 for patients with tissue heart valves. 2.5 - 3.5 for patients with mechanical heart valves or post [place]. Pediatric (12 years and under): 1.5 - [...] for unfractionated heparin 04/15/2005 12:4 0 PM AUDIO VISUAL COLLECTIONS COORDINATOR Cirilo Buenrostro MD HEMATOLOGY ORDERABLES Fin al Result Performing Organization Address [facility] de Phone Number INTERFACE SYSTEM Refer to clinic/hospital department * (ABNORMAL) BASIC METABOLIC PANEL (04/15/2005 12:40 PM AUDIO VISUAL COLLECTIONS COORDINATOR) GLUCOSE 145(H) 65 - 109 mg/dL INTERFACE [...] mmol/L INTERFACE SYSTEM 04/15/2005 12:4 0 PM AUDIO VISUAL COLLECTIONS COORDINATOR us Cirilo Buenrostro MD CHEMISTRY ORDERABLES Sommer avila Result INTERFACE SYSTEM Refer to clinic/hospital department documented in this encounter Visit Diagnoses Diagnosis Coronary atherosclerosis of [place] coronary artery- Primary documented in this encounter
--- OUTSIDE RECORDS SUMMARY | 2024-12-08 16:07 | XMS_ITS | Encounter Summary ---
Author Organization [facility] Address [address] [place] [address] Care Team Providers Care Network Analyst Name Role Phone Unavailable Primary Care Provider Unavailabl e Encounter Details Date Type Department Care Team (Late st Contact Info) Description 04/15/2005 Outpatient Historical [facility] Cardiovas and Thor Surg at [facility] Heart [address] [address] Max Jhaveri MD [address] [place] [phone] Social History Tobacco Use Types Packs/Day Years Used Date Smoking Tobacco: Never Assessed Comments Unknown Sex and Gender Information Value Date Recorded Sex Assigned at Not on file 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
--- OUTSIDE RECORDS SUMMARY | 2024-12-08 16:07 | XMS_ITS | Encounter Summary ---
Author Organization [facility] Address 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
--- OUTSIDE RECORDS SUMMARY | 2024-12-08 16:07 | XMS_ITS | Encounter Summary ---
Author Organization [facility] Address [address] [place] [address] Care Team Providers Care Substance Abuse Counselor Name Role Phone Unavailable Primary Care Provider Unavailabl e Encounter Details Date Type Department Care Team (Late st Contact Info) Description 05/20/2005 Outpatient Historical [facility] Cardiovas and Thor Surg at [facility] Heart [address] [address] Max Jhaveri MD [address] [place] [phone] Social History Tobacco Use Types Packs/Day Years Used Date Smoking Tobacco: Never Assessed Comments Unknown Sex and Gender Information Value Date Recorded Sex Assigned at Not on file 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
[2024-12-08 16:15] LABS: Magnesium 1.7 mg/dL (1.6-2.3)
[2024-12-08 16:27] LABS: Troponin I < 0.012 ng/mL (0.000-0.034)
--- NOTE | 2024-12-08 16:59 | PC.NURSE ---
Hayley Dodge RN, at Poison Control, patient's repeat acetaminophen level shows they are sub toxic. Poison Control will not be calling anymore for follow up.
[2024-12-08] MEDS: cefTRIAXone 1 GM in SODIUM CHLORIDE 0.9% IV 50 ML 100 ML IVPB (17:21)
--- NOTE | 2024-12-08 19:12 | PC.NURSE ---
Call placed to Crisis as it has been greater than 90 min. Unable to reach anyone. Shortly after the blind slat stapling machine operator received a phone call from someone at crisis stating that they are on the way.
--- NOTE | 2024-12-08 20:23 | PC.NURSE ---
Crisis still not present to evaluate pt. This RN called Crisis for an update on ETA due to it being over 3 hours. This RN spoke with Rianna from Crisis and she said she will check with staff she called in for and give us a call back.
--- NOTE | 2024-12-08 22:38 | PC.NURSE ---
Per Crisis they are wanting to transfer pt involuntarily.
[2024-12-09] VITALS (17 sets, daily range): BP systolic 86–169; BP diastolic 11–88; PULSE 46–59; RESP 11–19; TEMP 36.6; O2SAT 94–99
--- NOTE | 2024-12-09 03:59 | PC.NURSE ---
This RN spoke with pt daughter Mary and gave her an update on pt going to [place].
[2024-12-09] MEDS: ONDANSETRON INJ 4 MG/2 ML VIAL IV PUSH (04:13)
--- NOTE | 2024-12-09 07:11 | PC.NURSE ---
Patient A&O to self at this time. Patient has history of dementia. Patient is now low risk for SI/HI so no sitter needed at this time. [facility] ETA for transport to [place] is 0800.
--- NOTE | 2024-12-09 08:00 | PC.NURSE ---
Provider aware of patient's blood sugar results
--- NOTE | 2024-12-09 08:20 | PC.NURSE ---
Breakfast tray ordered for patient
[2024-12-09] MEDS: INSULIN ASPART (*BKC) 100 UNITS/ML 6 UNITS SUB-Q (09:03)
--- NOTE | 2024-12-09 15:33 | PCCCNOTE ---
Reported by ED charge the pt had been discharged to the accepting facility of the [facility] by Dr. Escalante. Stated [facility] called d/t the pt being in their ED, sent there by [facility] d/t the pt being unable to bathe herself and requesting to send the pt back to [facility] for placement. Spoke to KAYDEN Baum at [phone] with the ED provider in the background. Stating they have the pt sitting in front of the desk, not admitted and demanding the pt be sent back to this facility. Attempted to reiterate the pt was safely transported to the accepting facility and [facility] would not be appropriate d/t the facility not having a higher level of care or psych dept the pt needed. They requested to speak with Administration. storeroom supervisor notified.-montse
--- NOTE | 2024-12-09 17:04 | PCCCNOTE ---
Faxed clinical to [facility] in [place] as requested to [phone].-montse
--- NOTE | 2024-12-09 18:00 | PC.NURSE ---
Received a call from a nurse at [facility], asking why a dementia pt was sent there. RN was informed that all processes had been followed. They informed me that Dementia patients are not accepted there. I explained that the pt was accepted by Dr Escalante, and that the night nurse had given report. I explained that all documentation, I had reviewed made me feel like the pt had been accepted by [facility]. The nurse again was angry that pt had been sent there, and told me that pt because she could not do ADL'S, she would have to leave. I noted to the nurse that even though I was not the primary RN for the pt, I had watched her over 16-20 HR period and that I had seen her ambulate to bathroom, eat her meals,and understand that when she needed to have BG checked she would hold out her hand for the test. The RN stated that she would have to return to an ER, I responded by saying if the pt needed to be screened for a medical complaint, that would be an appropriate move, though again I informed her that I believed that the pt was at the appropriate facility as she had been accepted by and RN taking report. Shortly after this call I received a call from an unnamed provider from [facility], stating that this same pt should not have been transferred. without using names, I told him that any patents that had been transferred would have done so by following our process, including acceptance by Facilities, Providers and RN report. The gentleman was telling me that JOHNNIE stated that [facility] was still responsible for the pt. He was asking me to look into this problem. I explained t him that I was privy to all laws related to EMTALA and again I informed him that any pt's that may have been transferred would have been after gaining acceptance by a provider at receiving facility. Due to acuity of the dept at this time, I asked for assistance from care coordination, spoke with them and they would look into all concerns. Also gave the powerhouse attendant an update f the calls I had received.
--- NOTE | 2024-12-09 19:33 | PC.NURSE ---
Certification faxed to [facility] with Karine Ely approval.
== END 2024-12-09 11:37 ==
PROVIDERS: Emergency Medicine; Emergency Provider Emergency Medicine; PCP Family Medicine
DX: T39.312A Poisoning by propionic acid derivatives, intentional self-harm, initial encounter (principal); T39.1X2A Poisoning by 4-Aminophenol derivatives, intentional self-harm, initial encounter; E11.65 Type 2 diabetes mellitus with hyperglycemia; N39.0 Urinary tract infection, site not specified; Z11.52 Encounter for screening for COVID-19; F03.90 Unspecified dementia, unspecified severity, without behavioral disturbance, psychotic disturbance, mood disturbance, and anxiety; I11.0 Hypertensive heart disease with heart failure; I50.9 Heart failure, unspecified; I25.10 Atherosclerotic heart disease of native coronary artery without angina pectoris; I25.2 Old myocardial infarction; I25.5 Ischemic cardiomyopathy; E11.319 Type 2 diabetes mellitus with unspecified diabetic retinopathy without macular edema; E11.40 Type 2 diabetes mellitus with diabetic neuropathy, unspecified; E78.5 Hyperlipidemia, unspecified; K21.9 Gastro-esophageal reflux disease without esophagitis; K44.9 Diaphragmatic hernia without obstruction or gangrene; Z95.1 Presence of aortocoronary bypass graft; Z86.73 Personal history of transient ischemic attack (TIA), and cerebral infarction without residual deficits; Z87.442 Personal history of urinary calculi; Z87.891 Personal history of nicotine dependence; Z90.710 Acquired absence of both cervix and uterus; Z90.722 Acquired absence of ovaries, bilateral; Z90.79 Acquired absence of other genital organ(s); Z98.49 Cataract extraction status, unspecified eye; Z79.899 Other long term (current) drug therapy; Z79.4 Long term (current) use of insulin; Z79.82 Long term (current) use of aspirin; R00.1 Bradycardia, unspecified; I44.0 Atrioventricular block, first degree; I49.3 Ventricular premature depolarization; I45.10 Unspecified right bundle-branch block; R94.31 Abnormal electrocardiogram [ECG] [EKG]
CPT/HCPCS: 36415; 80053; 80143; 80179; 80307; 81001; 82077; 82948; 83735; 84443; 84484; 85025; 87040; 87077; 87086; 87186; 87637; 93005; 96365; 96375; 99285; J0696; J1815; J2405

== ENCOUNTER 2025-02-08 07:19 | Inpatient (IN) | payer MEDICARE, SELFPAY ==
[2025-02-08] VITALS (24 sets, daily range): BP systolic 100–162; BP diastolic 42–99; PULSE 68–118; RESP 12–27; TEMP 35.7–37.1; O2SAT 93–100
--- NOTE | ~2025-02-08 | CT_ITS ---
EXAMINATION: CT brain jovanna nogueira, 02/08/2025 8:45 IMMIGRATION CASE MANAGER HISTORY: altered mental status? weakness COMPARISON: No comparisons available. Technique: Axial images obtained of the brain without contrast. One or more of the following dose reduction techniques were used: automated exposure control, adjustment of the mA and/or kV according to patient size, use of iterative reconstruction technique. 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 Motion artifact limits evaluation but no gross acute infarct or hemorrhage is identified. There is no midline shift or mass effect. There are no extra-axial fluid collections. Mastoid air cells unremarkable. Sinuses and orbits unremarkable. No acute fracture. No significant facial or scalp soft tissue swelling evident. No radiopaque foreign body is seen. Impression: 1. Limited study. No acute infarct or hemorrhage Reviewed, dictated and finalized at location P. GRATION CASE MANAGER Impression: 1. Limited study. No acute infarct or hemorrhage
--- NOTE | ~2025-02-08 | CT_ITS ---
EXAM/PROCEDURE: CT chest abdomen pelvis wo con HISTORY: Abdominal Pain COMPARISON: Abdomen and pelvic CT from July 18, 2024 TECHNIQUE: Noncontrast CT of the chest abdomen and pelvis FINDINGS: Exam is somewhat degraded by moderately extensive motion artifact, as well as noncontrast technique. The lungs are clear. Heart and great vessels appear stable normal size and stable compared to the previous exam. No bulky lymphadenopathy or masses. Small to moderate-sized hiatal hernia again noted as well as sternal retention wires and coronary artery calcifications/stenting. In the abdomen and pelvis, the bowel gas pattern is nonobstructive with no free air or free fluid or pneumatosis seen. Indwelling urethral catheter with small amount of air in the urinary bladder. Mild urinary bladder wall thickening may be present. No hydroureteronephrosis. Cholecystectomy clips. No AAA. No bulky lymphadenopathy or masses. No gross inflammatory appendix. Mild scattered diverticuli disease noted with no gross acute diverticulitis. Mild pericolonic strandy changes are present such as can be seen on the right side on images 141 through 45 of series 3, and on the left side image 122 through 125 of series 3 extending into the posterior Gerota's fascia. No drainable fluid collection. No obvious wall thickening. Stomach appears grossly stable. Pancreas unremarkable. Bones appear stable including fusion hardware at L5-S1, and anterolisthesis of L4 on L5 and L5 on S1. IMPRESSION: 1. Directed exam as above demonstrating no acute surgical abnormality. Mild strandy changes about the large intestine could be associated with developing inflammatory or infectious colitis. 2. Mild thickening of the urinary bladder wall may be present. 3. Several other chronic findings as above. Reviewed, dictated and finalized at location A. MACY ANALYST IMPRESSION: 1. Directed exam as above demonstrating no acute surgical abnormality. Mild str aaliyah changes about the large intestine could be associated with developing infl ammatory or infectious colitis. 2. Mild thickening of the urinary bladder wall may be present. 3. Several other chronic findings as above.
--- NOTE | ~2025-02-08 | XR_ITS ---
EXAM/PROCEDURE: XR chest 2V HISTORY: weakness COMPARISON: August 15, 2024 TECHNIQUE: 2 view chest FINDINGS: The lungs are clear. Heart shadow within normal limits. Sternal retention wires stable in configuration. Surgical clips left upper abdomen. No pneumothorax, subphrenic free air, effusion or harmony pulmonary edema. The bones are diffusely osteopenic and degenerative with no gross acute process seen. IMPRESSION: No acute findings. Reviewed, dictated and finalized at location A. ONAL TRAINING MANAGER IMPRESSION: No acute findings.
--- NOTE | 2025-02-08 07:41 | ECG_ITS ---
Test Date: 2025-02-08 08:08:46 Measurements Intervals [place] Rate: 82 P: -88 AK: 172 QRS: -62 QRSD: 189 T: 265 QT: 465 QTc: 546 Interpretive Statements ATRIAL FLUTTER RIGHT BUNDLE BRANCH BLOCK [120+ ms QRS DURATION, UPRIGHT V1, 40+ ms S IN I/aVL/V4/V5/V6] POSSIBLE LEFT VENTRICULAR HYPERTROPHY [VOLTAGE CRITERIA PLUS LAE OR QRS WIDENING] INFERIOR MYOCARDIAL INFARCTION , OF INDETERMINATE AGE [40+ ms Q WAVE AND/OR ST/T ABNORMALITY IN II/aVF] ANTEROLATERAL MYOCARDIAL INFARCTION , OF INDETERMINATE AGE [40+ ms Q WAVE IN I/aVL/V3-V6] Compared to ECG 12/08/2024 13:07:59 ATRIAL FLUTTER IS NOW PRESENT Myocardial infarct finding still present Electronically Signed On 02-08-2025 09:04:00 POLE FRAME CONSTRUCTION WORKER by Mukund Hayes M.D.
--- NOTE | 2025-02-08 08:20 | ED_ITS ---
HPI - Weakness General Chief complaint: Weakness Stated complaint: weakness Time Seen by Provider: 02/08/25 07:57 Source: patient and RN notes reviewed Mode of arrival: EMS Limitations: altered mental status and clinical condition History of Present Illness HPI Narrative: Patient presents with reported weakness. She lives with her daughter and was brought from home by EMS. Patient has apparently been weak for a few days and unable to stand using her walker. Is reported the patient is alert oriented x1 at baseline which she currently is although it is also reported that she is altered?. Last known well days ago. Patient shakes her head no when asked about chest pain or abdominal pain but does not give a clear response when asked about cough, diarrhea, or new medications. Related Data Home Medications ?Medication ?Instructions ?Recorded ?Confirmed ?Last Taken ?Type dextrose 40 % oral gel (Glucose 20 g PO Q15M PRN hypog lycemia 05/17/24 02/08/25 Unknown History Gel) glucagon 1 mg/0.2 mL subcutaneous 1 mg subcut PRN PRN blood sugar 05/17/24 02/08/25 Unknown History auto-injector (Gvoke HypoPen less than 60 unable to sw allow 1-Pack) Allergies Allergy/AdvReac Type Severity Reaction Status Date / Time No Known Allergies Allergy Verified 02/08/25 13:16 [facility] Past Medical History Medical History Dementia CHF (congestive heart failure) Diabetes mellitus Acute CVA (cerebrovascular accident) Benign essential hypertension Kidney stones Coronary artery disease Myocardial infarction 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 History of total abdominal hysterectomy and bilateral salpingo-oophorectomy History of vein stripping Family History Family History Mother History of stroke Other Diabetes mellitus Sibling Alzheimer disease Father No problems noted. Social History Social History Social History: Surrogate medical decision maker: Mary Martienz, daughter. Code status: Full code. Smoking packs per day: 1 Smoking cigarettes per day: 20.0 Years smoked: 30 Smoking pack-years: 30.00 Smoking status: Never smoker Tobacco type: cigarettes Second hand tobacco smoke exposure: No Alcohol intake: never Substance use: never Substance use type: does not use Do You Feel Safe in your Home?: Yes Lack of Transportation: YES Lack of Food: Sometimes True Current Housing: I Have Housing Concerned About Future Housing: YES Difficulty Paying Gas/Electric Bills: YES Difficulty Paying for Meds: YES Currently Unemployed: No Education: High School Diploma/GED Difficulty w/ Childcare or Family Care: No Living arrangements: with family Additional living arrangements comments: daughter Occupation/Education: retired Gender identity (if verbalized by the patient): Female Sexual Orientation (if Verbalized by the Patient): Straight or Heterosexual Spiritual care concerns: No Agree to blood products: Yes Exam 2 Narrative: GENERAL: In no acute distress though appears unwell. HEAD: Normocephalic, atraumatic. EYES: Non injected, non icteric ENT: Nares clear, no rhinorrhea or epistaxis. Gross auditory acuity intact. Tacky mucous membranes. NECK: Supple. No meningismus. CHEST: No respiratory distress. Lungs clear to auscultation without crackles or wheezes HEART: Regular rate and rhythm. . ABDOMEN: Soft, nondistended. No rigidity or guarding. Not peritoneal EXTREMITIES: No lower extremity edema. SKIN: Warm, dry, no rash. NEURO: No focal deficits. Alert but not oriented. Not consistently Answering questions. PSYCH: Congruent mood and affect. Course Vital Signs Vital signs: Vital Signs Temperature 97.3 F L 02/08/25 07:25 Pulse Rate 83 02/08/25 07:25 Respiratory Rate 16 02/08/25 07:25 Blood Pressure 156/73 H 02/08/25 07:25 Pulse Oximetry 100 02/08/25 07:25 Oxygen Delivery Room Air 02/08/25 07:25 Temperature 98.5 F 02/09/25 05:40 Pulse Rate 70 02/09/25 05:40 Respiratory Rate 21 H 02/09/25 05:00 Blood Pressure 149/70 H 02/09/25 05:00 Pulse Oximetry 100 02/09/25 05:00 Oxygen Delivery Nasal Cannula 02/09/25 04:00 Oxygen Flow Rate 2 02/09/25 04:00 MDM - Weakness MDM Narrative Medical decision making narrative: Patient presents with report of weakness. She lives with her daughter at home and has been unable to stand using her walker. You was initially reported that she is alert oriented x1 at baseline which is what she is currently although then there is also report that she has had some altered mental status and her last known well was days ago. In reviewing the EMR, I did acknowledge that I had previously seen this patient and I do recall that at that time there had been some question of whether or not she had dementia and it seems like she does although I do recall that my interaction with her previously was far more fruitful and she was more alert and oriented at that time which was only a few months ago. At that time she had intentionally overdosed and so this is considered today as well on the differential. In the emergency department she is afebrile vital signs notable for hypertension. Based on the change in EKG from previous, I did discuss with specialist employee labor relations nail galvanizer Dr Ledbetter who reviews today's EKG compared to most recent. No STEMI. Leukocytosis. Hemoglobin is elevated especially compared to previous. I suspect a strong degree of hemoconcentration/dehydration. Mild hyperkalemia; calcium ordered in addition to bicarb given acidotic. She has an RONALD. 1L IV fluids have been ordered already. Anion gap not calculated on chemistry but 30.0; 28.5?mEq/L Albumin corrected anion gap; suggests high anion gap acidosis . Calcium corrects to 10.3 (only mild hypercalcemia) in the setting of albumin. 5U insulin ordered which should help with hyperkalemia and represents renal dosing as well as 0.1U/kg IVP. Pseudo hyponatremia as sodium corrects to 140/144 given glucose. BNP mildly elevated but not to a degree to suggest acute heart failure especially given the reference range of the assay for patient's age and given patient does not appear volume overloaded on exam or chest x-ray. 2nd L IV fluids ordered. Troponin within normal limits. Viral swab negative. UA with ketonuria. Diagnosis of DKA based on the triad of hyperglycemia, ketosis, and anion-gap metabolic acidosis. DKA protocol ordered. TSH normal. Beta hydroxybutyrate elevated. Repeat BMP still shows DKA. Potassium now WNL. Spoke with Dr Mccoy test lead. Concurs with 2L IV fluids and protocol; no need for additional bolus at this time. Updated him that her current BP is 132/114 (MAP 121). HA1C 14% showing markedly not controlled Diabetes. Discussed with specialist employee labor relations hospitalist Dr Mesa. I did order 2 additional bicarb pushes; believe the bicarb gtt is part of DKA order set based on labs. Will defer to test lead. We discussed that previous conversation had noted she was DNR although she had been made a full code when she intentionally overdosed during a different presentation. Will default to full code at this time. Patient unable to provide clear wishes at this time so Dr. Mesa will attempt to contact family. The nurse does report that she has started a bicarb drip as had been ordered and had not given the 2 pushes but then the drip appears to be discontinued although per my review of the order it is unclear whether this was accidentally done by myself for whether the order timed out or whether the test lead or hospitalist cancelled it. I did cancel the pushes and she notes the the gtt is still running (takes 2 hours) and she would clarify as patient is going up to the ICU now. Differential Diagnosis Differential diagnosis: Likely anemia, hypoglycemia, hypothyroidism, rhabdomyolysis, sepsis, dehydration and other (metabolic abnormalities; intracranial hemorrhage/CVA; overdose (intentional or unintentional); medication side effect; hyperglycemia/DKA/HHS; hyponatremia) Lab Data Attestation: I reviewed the patient's lab results. 02/09/25 03:50 02/09/25 03:50 Labs: Lab Results 02/08/25 02/08/25 02/08/25 Range/Units 08:13 08:16 08:18 WBC 7.2 (4.5-10.0) K/mm3 RBC 5.71 H (4.2-5.4) M/mm3 Hgb 17.2 H D (12.0-15.0) g/dL Hct 53.6 H (37.0-47.0) % MCV 93.9 (80-100) fl MCH 30.1 (26-34) pg MCHC 32.1 (32-36) g/dl RDW 13.8 (11.5-14.5) % Plt Count 242 (150-375) k/mm3 MPV 11.8 H (7.4-10.4) fl Immature Gran % (Auto) 0.3 (0-0.5) % Neut % (Auto) 81.1 H (45.5-73.1) % Lymph % (Auto) 13.9 L (18.3-44.2) % [place] % (Auto) 3.9 (2.6-8.5) % Eos % (Auto) 0.1 (0-4.4) % Baso % (Auto) 0.7 (0.2-1.2) % Lymph # (Auto) 1.00 (0.9-3.2) K/mm3 [place] # (Auto) 0.3 (0.1-0.6) K/mm3 Eos # (Auto) 0.0 (0-0.3) K/mm3 Baso # (Auto) 0.1 (0.0-0.1) K/mm3 Abs Immat Gran (auto) 0.02 (0.00-0.031) K/mm3 Absolute Neuts (auto) 5.9 (1.3-6.7) K/mm3 Absolute Nucleated RBC 0.000 (0.0-0.012) K/mm3 Nucleated RBC % 0.0 (0.0-0.2) % PT 13.9 (11.1-14.7) Seconds INR 1.1 APTT 25.6 (22.3-36.8) Seconds Sodium 133 L (137-145) mmol/L Potassium 5.4 H (3.4-5.0) mmol/L Chloride 98 (98-107) mmol/L Carbon Dioxide < 5 L (22-30) mmol/L Anion Gap (4-12) mmol/L BUN 36 H D (7-17) mg/dL Creatinine 1.27 H (0.7-1.0) mg/dL Estim Creat Clear Calc 25 ml/min Estimated GFR 40 L (59 - ) Glucose 539 H* (65-110) mg/dL Hemoglobin A1c 14.0 H (<5.7) % Calcium 10.8 H (8.4-10.2) mg/dL Phosphorus 4.7 H (2.5-4.5) mg/dL Magnesium 2.1 (1.6-2.3) mg/dL Total Bilirubin 0.9 (0.2-1.3) mg/dL AST 19 (14-36) U/L ALT 38 H (6-35) U/L Alkaline Phosphatase 92 (38-126) U/L Total Creatine Kinase < 20 L (30-135) U/L Troponin I 0.018 (0.000-0.034) ng/mL NT-Pro-B Natriuret Pep 492 H (19.9-100) pg/mL Total Protein 8.3 H (6.3-8.2) g/dL Albumin 4.6 (3.5-5.1) g/dL Beta-Hydroxybutyrate/Acetoacetate (0.02-0.27) mmol/L TSH 0.543 (0.465-4.680) uIU/mL Urine Color (Yellow) Urine Appearance (Clear) Urine pH (5.0-9.0) Ur Specific [place] (1.001-1.035) Urine Protein (Negative) mg/dL Urine Glucose (UA) (Negative) mg/dL Urine Ketones (Negative) mg/dL Ur Blood (Man) (Negative) Urine Nitrate (Negative) Urine Bilirubin (Negative) Urine Urobilinogen (<2.0) mg/dL Leukocyte Esterase Rfl (Negative) SHELLEY/UL Urine RBC (0-2) /hpf Urine WBC (0-3) /hpf Ur Squamous Epith Cells (Few) /hpf Urine Bacteria /hpf Urine Casts Salicylates < 1.0 L (2-20) mg/dL Urine Opiates Screen (Negative) Urine Methadone Screen (Negative) Acetaminophen < 10 L (10-30) ug/mL Ur Barbiturates Screen (Negative) Ur Phencyclidine Scrn (Negative) Ur Amphetamine Screen (Negative) U Benzodiazepines Scrn (Negative) Urine Cocaine Screen (Negative) U Cannabinoids Screen (Negative) Ethyl Alcohol < 10 (<10) mg/dL Influenza A (RT-PCR) (Negative) Influenza B (RT-PCR) (Negative) RSV (RT-PCR) (Negative) SARS-CoV-2 RNA (RT-PCR) (Negative) 11/06/25 11/06/25 11/06/25 Range/Units 08:47 09:04 09:40 WBC (4.5-10.0) K/mm3 RBC (4.2-5.4) M/mm3 Hgb (12.0-15.0) g/dL Hct (37.0-47.0) % MCV (80-100) fl MCH (26-34) pg MCHC (32-36) g/dl RDW (11.5-14.5) % Plt Count (150-375) k/mm3 MPV (7.4-10.4) fl Immature Gran % (Auto) (0-0.5) % Neut % (Auto) (45.5-73.1) % Lymph % (Auto) (18.3-44.2) % [place] % (Auto) (2.6-8.5) % Eos % (Auto) (0-4.4) % Baso % (Auto) (0.2-1.2) % Lymph # (Auto) (0.9-3.2) K/mm3 [place] # (Auto) (0.1-0.6) K/mm3 Eos # (Auto) (0-0.3) K/mm3 Baso # (Auto) (0.0-0.1) K/mm3 Abs Immat Gran (auto) (0.00-0.031) K/mm3 Absolute Neuts (auto) (1.3-6.7) K/mm3 Absolute Nucleated RBC (0.0-0.012) K/mm3 Nucleated RBC % (0.0-0.2) % PT (11.1-14.7) Seconds INR APTT (22.3-36.8) Seconds Sodium (137-145) mmol/L Potassium (3.4-5.0) mmol/L Chloride (98-107) mmol/L Carbon Dioxide (22-30) mmol/L Anion Gap (4-12) mmol/L BUN (7-17) mg/dL Creatinine (0.7-1.0) mg/dL Estim Creat Clear Calc ml/min Estimated GFR (59 - ) Glucose (65-110) mg/dL Hemoglobin A1c (<5.7) % Calcium (8.4-10.2) mg/dL Phosphorus (2.5-4.5) mg/dL Magnesium (1.6-2.3) mg/dL Total Bilirubin (0.2-1.3) mg/dL AST (14-36) U/L ALT (6-35) U/L Alkaline Phosphatase (38-126) U/L Total Creatine Kinase (30-135) U/L Troponin I (0.000-0.034) ng/mL NT-Pro-B Natriuret Pep (19.9-100) pg/mL Total Protein (6.3-8.2) g/dL Albumin (3.5-5.1) g/dL Beta-Hydroxybutyrate/Acetoacetate 12.40 H (0.02-0.27) mmol/L TSH (0.465-4.680) uIU/mL Urine Color Yellow (Yellow) Urine Appearance Clear (Clear) Urine pH 5.0 (5.0-9.0) Ur Specific [place] 1.029 (1.001-1.035) Urine Protein 1+ H (Negative) mg/dL Urine Glucose (UA) 3+ H (Negative) mg/dL Urine Ketones 4+ H (Negative) mg/dL Ur Blood (Man) Negative (Negative) Urine Nitrate Negative (Negative) Urine Bilirubin Negative (Negative) Urine Urobilinogen 0.2 (<2.0) mg/dL Leukocyte Esterase Rfl Negative (Negative) SHELLEY/UL Urine RBC 0-2 (0-2) /hpf Urine WBC 0-5 (0-3) /hpf Ur Squamous Epith Cells None seen (Few) /hpf Urine Bacteria None seen /hpf Urine Casts 3-5 Salicylates (2-20) mg/dL Urine Opiates Screen Negative (Negative) Urine Methadone Screen Negative (Negative) Acetaminophen (10-30) ug/mL Ur Barbiturates Screen Negative (Negative) Ur Phencyclidine Scrn Negative (Negative) Ur Amphetamine Screen Negative (Negative) U Benzodiazepines Scrn Negative (Negative) Urine Cocaine Screen Negative (Negative) U Cannabinoids Screen Negative (Negative) Ethyl Alcohol (<10) mg/dL Influenza A (RT-PCR) Negative (Negative) Influenza B (RT-PCR) Negative (Negative) RSV (RT-PCR) Negative (Negative) SARS-CoV-2 RNA (RT-PCR) Negative (Negative) 02/08/25 Range/Units 10:26 WBC (4.5-10.0) K/mm3 RBC (4.2-5.4) M/mm3 Hgb (12.0-15.0) g/dL Hct (37.0-47.0) % MCV (80-100) fl MCH (26-34) pg MCHC (32-36) g/dl RDW (11.5-14.5) % Plt Count (150-375) k/mm3 MPV (7.4-10.4) fl Immature Gran % (Auto) (0-0.5) % Neut % (Auto) (45.5-73.1) % Lymph % (Auto) (18.3-44.2) % [place] % (Auto) (2.6-8.5) % Eos % (Auto) (0-4.4) % Baso % (Auto) (0.2-1.2) % Lymph # (Auto) (0.9-3.2) K/mm3 [place] # (Auto) (0.1-0.6) K/mm3 Eos # (Auto) (0-0.3) K/mm3 Baso # (Auto) (0.0-0.1) K/mm3 Abs Immat Gran (auto) (0.00-0.031) K/mm3 Absolute Neuts (auto) (1.3-6.7) K/mm3 Absolute Nucleated RBC (0.0-0.012) K/mm3 Nucleated RBC % (0.0-0.2) % PT (11.1-14.7) Seconds INR APTT (22.3-36.8) Seconds Sodium 137 (137-145) mmol/L Potassium 4.3 (3.4-5.0) mmol/L Chloride 101 (98-107) mmol/L Carbon Dioxide 8 L (22-30) mmol/L Anion Gap 28 H (4-12) mmol/L BUN 36 H (7-17) mg/dL Creatinine 1.27 H (0.7-1.0) mg/dL Estim Creat Clear Calc 25 ml/min Estimated GFR 40 L (59 - ) Glucose 476 H (65-110) mg/dL Hemoglobin A1c (<5.7) % Calcium 10.7 H (8.4-10.2) mg/dL Phosphorus (2.5-4.5) mg/dL Magnesium (1.6-2.3) mg/dL Total Bilirubin (0.2-1.3) mg/dL AST (14-36) U/L ALT (6-35) U/L Alkaline Phosphatase (38-126) U/L Total Creatine Kinase (30-135) U/L Troponin I (0.000-0.034) ng/mL NT-Pro-B Natriuret Pep (19.9-100) pg/mL Total Protein (6.3-8.2) g/dL Albumin (3.5-5.1) g/dL Beta-Hydroxybutyrate/Acetoacetate (0.02-0.27) mmol/L TSH (0.465-4.680) uIU/mL Urine Color (Yellow) Urine Appearance (Clear) Urine pH (5.0-9.0) Ur Specific [place] (1.001-1.035) Urine Protein (Negative) mg/dL Urine Glucose (UA) (Negative) mg/dL Urine Ketones (Negative) mg/dL Ur Blood (Man) (Negative) Urine Nitrate (Negative) Urine Bilirubin (Negative) Urine Urobilinogen (<2.0) mg/dL Leukocyte Esterase Rfl (Negative) SHELLEY/UL Urine RBC (0-2) /hpf Urine WBC (0-3) /hpf Ur Squamous Epith Cells (Few) /hpf Urine Bacteria /hpf Urine Casts Salicylates (2-20) mg/dL Urine Opiates Screen (Negative) Urine Methadone Screen (Negative) Acetaminophen (10-30) ug/mL Ur Barbiturates Screen (Negative) Ur Phencyclidine Scrn (Negative) Ur Amphetamine Screen (Negative) U Benzodiazepines Scrn (Negative) Urine Cocaine Screen (Negative) U Cannabinoids Screen (Negative) Ethyl Alcohol (<10) mg/dL Influenza A (RT-PCR) (Negative) Influenza B (RT-PCR) (Negative) RSV (RT-PCR) (Negative) SARS-CoV-2 RNA (RT-PCR) (Negative) ABG Data ABG results: 02/08/25 10:08 VBG pH 7.156 L* VBG pCO2 27.1 L* VBG pO2 45.5 H VBG HCO3 9.4 L O2 Delivery Device Room air O2 Liters/Min Not Reportable FiO2 21 Interpretation: Acidotic, primary metablolic anion gap acidosis; there is additional respiratory acidosis Imaging Data Attestation: I personally reviewed and interpreted this imaging study as follows: My impression: Cardiomegaly and sternotomy wires on my independent interpretation chest x-ray. Radiologist's impression: Impression: 1. Limited study. No acute infarct or hemorrhage IMPRESSION: No acute findings. ECG Data EKG #1: Attestation: I personally reviewed and interpreted this ECG as follows: ECG completion date: 02/08/25 ECG completion time: 08:08 Prior ECG tracings: available for review (12/08/24 sinus bradycardia with first degree AV block; RBBB) Interpretation: Pre populated EKG algorithm suggests ectopic atrial rhythm ; inverted P-waves throughout . This makes me suspect atrial flutter. RBBB given QRS greater [id number]; RSR' M-shaped pattern in V1-V3; wide, slurred S wave in lateral leads (I, aVL, V5-6). Poor R-wave progression across the precordial leads. T- wave inversion throughout verses biphasic T-waves. Discharge Plan Discharge Clinical Impression: RONALD (acute kidney injury), Pseudohyponatremia, DKA (diabetic ketoacidosis), Weakness, Hemoglobin A1C greater than 9%, indicating poor diabetic control Patient Disposition: Still a Patient Condition: Serious
[2025-02-08 08:24] LABS: Hematocrit 53.6 % (37.0-47.0); Hemoglobin 17.2 g/dL (12.0-15.0); Immature Granulocyte Percent A 0.3 % (0-0.5); Lymphocytes Absolute Auto 1.00 K/mm3 (0.9-3.2); Mean Corpuscular HGB Conc 32.1 g/dl (32-36); Mean Corpuscular Hemoglobin 30.1 pg (26-34); Mean Corpuscular Volume 93.9 fl (80-100); Nucleated Red Blood Cells Absolute Auto 0.000 K/mm3 (0.0-0.012); Nucleated Red Blood Cells Perc 0.0 % (0.0-0.2); Platelet Count Result 242 k/mm3 (150-375); Red Blood Count 5.71 M/mm3 (4.2-5.4); White Blood Count 7.2 K/mm3 (4.5-10.0)
[2025-02-08 08:46] LABS: Alanine Aminotransferase 38 U/L (6-35); Albumin Level 4.6 g/dL (3.5-5.1); Alkaline Phosphatase 92 U/L (38-126); Aspartate Amino Transferase 19 U/L (14-36); Bilirubin,Total 0.9 mg/dL (0.2-1.3); Blood Urea Nitrogen 36 mg/dL (7-17); Calcium 10.8 mg/dL (8.4-10.2); Carbon Dioxide < 5 mmol/L (22-30); Chloride 98 mmol/L (98-107); Estimated CRCL calculation 25 ml/min; Estimated Glomerular Filt Rate 40; Glucose 539 mg/dL (65-110); Potassium 5.4 mmol/L (3.4-5.0); Sodium 133 mmol/L (137-145); Total Protein 8.3 g/dL (6.3-8.2)
[2025-02-08] MEDS: INSULIN HUMAN REGULAR (*BKC) 100 UNITS/ML IV PUSH (09:12)
[2025-02-08] MEDS: CALCIUM GLUCONATE 1,000 MG/10 ML VIAL 1000 MG IV PUSH (09:15)
[2025-02-08] MEDS: SODIUM BICARBONATE 8.4% 50 MEQ/50 ML SYRINGE IV PUSH (09:18)
[2025-02-08] MEDS: SODIUM CHLORIDE 0.9% IV 500 ML 999 ML IV CONT (09:22)
[2025-02-08 09:25] LABS: Creatine Kinase < 20 U/L (30-135); Magnesium 2.1 mg/dL (1.6-2.3)
[2025-02-08 09:28] LABS: INR 1.1; NT Pro B Type Natriuretic Pept 492 pg/mL (19.9-100); Prothrombin Time 13.9 Seconds (11.1-14.7)
[2025-02-08 09:29] LABS: Partial Thromboplastin Time 25.6 Seconds (22.3-36.8)
[2025-02-08 09:34] LABS: Acetaminophen < 10 ug/mL (10-30); Salicylate < 1.0 mg/dL (2-20)
[2025-02-08 09:44] LABS: Troponin I 0.018 ng/mL (0.000-0.034)
[2025-02-08 09:51] LABS: Influenza A QL RT-PCR Negative (Negative); Influenza B QL RT-PCR Negative (Negative); RSV RNA, RT-PCR Negative (Negative); SARS-CoV-2 RNA PCR Negative (Negative)
[2025-02-08 09:53] LABS: Add Urine Microscopic? YES; Appearance Urine Clear (Clear); Glucose Urine UA 3+ mg/dL (Negative); Leukocyte Esterase Ur Negative LEU/UL (Negative); Nitrate Urine Negative (Negative); Specific Grav Ur 1.029 (1.001-1.035)
[2025-02-08 10:02] LABS: Thyroid Stimulating Hormone 0.543 uIU/mL (0.465-4.680)
[2025-02-08] MEDS: SODIUM CHLORIDE 0.9% IV 1,000 ML 999 ML IV CONT (10:09)
[2025-02-08 10:13] LABS: Fractional Inspired Oxygen 21 %; HCO3 VBG 9.4 mEq/l (24.0-30.0); PO2 VBG 45.5 mmHg (35.0-45.0)
[2025-02-08 10:15] LABS: PCO2 VBG 27.1 mmHg (42.0-48.0); pH VBG 7.156 (7.300-7.400)
--- NOTE | 2025-02-08 10:20 | PC.NURSE ---
phlebotomy called for lab draw
[2025-02-08 10:25] LABS: Cannabinoid Screen Urine Negative (Negative)
[2025-02-08 10:43] LABS: Beta-Hydroxybutyrate/Acetoace. 12.40 mmol/L (0.02-0.27)
[2025-02-08 10:54] LABS: Anion Gap 28 mmol/L (4-12); Blood Urea Nitrogen 36 mg/dL (7-17); Calcium 10.7 mg/dL (8.4-10.2); Carbon Dioxide 8 mmol/L (22-30); Chloride 101 mmol/L (98-107); Estimated CRCL calculation 25 ml/min; Estimated Glomerular Filt Rate 40; Glucose 476 mg/dL (65-110); Potassium 4.3 mmol/L (3.4-5.0); Sodium 137 mmol/L (137-145)
[2025-02-08 11:04] LABS: Hemoglobin A1C 14.0 % (<5.7)
[2025-02-08] MEDS: INSULIN HUMAN REGULAR (*BKC) 100 UNITS in SODIUM CHLORIDE 0.9% IV 99 ML IV CONT ×2 (11:44→19:02)
--- NOTE | 2025-02-08 12:16 | PC.NURSE ---
this RN spoke to SANDRA Bazzi who stated that she did not D/C the gtt; Bicarb can continue until infused and she D/C's IVP. will advised Mare of this upon transfer to ICU
--- NOTE | 2025-02-08 12:26 | WPDCNINT ---
Assessment and Plan Assessment and plan (1) DKA (diabetic ketoacidosis): Code(s): E11.10 - Type 2 diabetes mellitus with ketoacidosis without coma Status: Acute Assessment and Plan: The patient's last chest DKA. Pt was given IVF bolus and has been started on started on infusion Insulin infusion started and Q1H glucose monitoring is being done Serial labs ordered Replace electrolytes as needed Consult dietitian and naturopathic doctor NPO (2) CAD (coronary artery disease): Code(s): I25.10 - Atherosclerotic heart disease of [place] coronary artery without angina pectoris Status: Acute Assessment and Plan: Will resume aspirin and other medications once patient able to take p.o. (3) PAF (paroxysmal atrial fibrillation): Code(s): I48.0 - Paroxysmal atrial fibrillation Status: Acute Assessment and Plan: Currently in sinus rhythm monitor (4) RONALD (acute kidney injury): Code(s): N17.9 - Acute kidney failure, unspecified Status: Resolved Assessment and Plan: RONALD likely secondary to DKA and hypovolemia Check CK and urine electrolytes IV fluids Monitor urine output electrolytes and creatinine Will order additional workup if does not improve with IV fluids (5) Metabolic encephalopathy: Code(s): G93.41 - Metabolic encephalopathy Status: Acute Assessment and Plan: Head CT was negative TSH was neg Since patient is on valproic acid I will check ammonia (6) Abdominal pain: Code(s): R10.9 - Unspecified abdominal pain Status: Inactive Assessment and Plan: Patient unable to provide any meaningful history. Appears tender on abdominal exam. LFTs were unremarkable Will check abdominal CT and lipase level Plan DVT prophylaxis -Lovenox Nutrition -NPO Code Status - Full Code Total Critical Care Time - 30 minutes Due to a high probability of clinically significant, life threatening deterioration, the patient required my highest level of preparedness to intervene emergently and I personally spent this critical care time directly and personally managing the patient. This critical care time included obtaining a history; examining the patient; pulse oximetry; ordering and review of studies; arranging urgent treatment with development of a management plan; evaluation of patient's response to treatment; frequent reassessment; and discussions with other providers. It was exclusive of separately billable procedures and treating other patients and teaching time. Please see Assessment and Plan section and the rest of the note for further information on patient assessment and treatment Director Stage Consult Note Consult date: 02/08/25 Reason for consult: DKA HPI: Ana M Junior is a 79 year old female with past medical history insulin-dependent diabetes mellitus, dementia, CAD status post CABG, paroxysmal atrial fibrillation, history of CVA, essential hypertension, hyperlipidemia, diabetic neuropathy, CHF who presented to ER with chief complaint of weakness. Workup in the ER showed normal WBC of 7.2 elevated hemoglobin at 17.2 platelet 242 Normal coag VBG done showed metabolic acidosis with respiratory compensation Elevated blood glucose at 5:39 a.m., positive anion gap of 28 low CO2 off less than 5 creatinine 1.2 and positive beta hydroxybutyrate at 12.40 Viral respiratory panel was negative UA showed ketone Chest x-ray showed no acute cardiopulmonary process Head CT also showed no acute intracranial process Patient is awake confused and unable to provide any meaningful history. She continues to moan and groan. She is resistant to exam but she does follow commands by squeezing hands. She has baseline dementia and is only partially oriented at baseline. 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 History of total abdominal hysterectomy and bilateral salpingo-oophorectomy History of vein stripping Family History Family History Mother History of stroke Other Diabetes mellitus Sibling Alzheimer disease Father No problems noted. Social History Social History Social History: Surrogate medical decision maker: Mary Martinez, daughter. Code status: Full code. Smoking packs per day: 1 Smoking cigarettes per day: 20.0 Years smoked: 30 Smoking pack-years: 30.00 Tobacco type: cigarettes Second hand tobacco smoke exposure: No Alcohol intake: never Substance use: never Substance use type: does not use Do You Feel Safe in your Home?: Yes Lack of Transportation: No Lack of Food: Never True Current Housing: I Have Housing Concerned About Future Housing: No Difficulty Paying Gas/Electric Bills: No Difficulty Paying for Meds: No Currently Unemployed: No Education: High School Diploma/GED Difficulty w/ Childcare or Family Care: No Living arrangements: with family Additional living arrangements comments: daughter Occupation/Education: retired Gender identity (if verbalized by the patient): Female Sexual Orientation (if Verbalized by the Patient): Straight or Heterosexual Spiritual care concerns: No Agree to blood products: Yes Meds Home Medications and Allergies Home Medications ?Medication ?Instructions ?Recorded ?Confirmed ?Type blood-glucose,milk receiver tank truck,cont #2 ea 09/23/23 09/06/24 Rx (FreeStyle Haritha 3 [place]) aspirin 81 mg chewable tablet 81 mg PO QPM #90 tabs 10/21/23 10/11/24 Rx paroxetine HCl 20 mg tablet 30 mg (1.5 x 20 mg) PO DAILY #135 02/01/24 10/11/24 Rx tabs rosuvastatin 10 mg tablet 10 mg PO QPM #90 tabs 02/01/24 10/11/24 Rx trazodone 50 mg tablet 50 mg PO QHS #90 tabs 02/01/24 10/11/24 Rx divalproex 125 mg tablet,delayed 125 mg PO BID #60 tabs 03/09/24 09/06/24 Rx release (Depakote) dextrose 40 % oral gel (Glucose 20 g PO Q15M PRN hypoglycemia 05/17/24 10/11/24 History Gel) glucagon 1 mg/0.2 mL subcutaneous 1 mg subcut PRN PRN blood sugar 05/17/24 10/11/24 History auto-injector (Gvoke HypoPen less than 60 unable to swallow 1-Pack) acetaminophen 500 mg tablet 1,000 mg (2 x 500 mg) PO TID PRN 05/23/24 10/11/24 Rx arabella 7 days #42 tabs pen needle, diabetic 31 gauge x #400 ea 06/01/24 09/06/24 Rx 5/16 (BD Ultra-Fine Short Pen Needle) furosemide 20 mg tablet 40 mg (2 x 20 mg) PO DAILY #30 tabs 08/22/24 10/11/24 Rx enalapril maleate 10 mg tablet 10 mg PO DAILY #90 tabs 08/23/24 10/11/24 Rx insulin aspart U-100 100 unit/mL 6 unit (0.06 mL) subcut TIDWM #15 10/11/24 10/11/24 Rx (3 mL) subcutaneous pen (Novolog mL FlexPen U-100 Insulin aspart) insulin degludec 100 unit/mL (3 18 unit (0.18 mL) subcut DAILY #15 10/11/24 10/11/24 Rx mL) subcutaneous pen mL memantine 10 mg tablet 10 mg PO BID #180 tabs 10/11/24 10/11/24 Rx empagliflozin 10 mg tablet 10 mg PO DAILY #30 tabs 10/23/24 Rx (Jardiance) blood-glucose sensor (FreeStyle #1 ea 11/23/24 Rx Haritha 3 Plus Sensor device) Allergies Allergy/AdvReac Type Severity Reaction Status Date / Time No Known Allergies Allergy Verified 02/08/25 07:34 Vital Signs Vital Signs - 24 hr 02/08/25 07:25 02/08/25 07:25 02/08/25 07:31 Temperature 36.3 C L Pulse Rate 83 83 83 Respiratory Rate 16 15 Blood Pressure 156/73 H 156/73 H Pulse Oximetry 100 100 Oxygen Delivery Room Air 02/08/25 07:46 02/08/25 08:01 02/08/25 08:20 Temperature Pulse Rate 100 84 99 Respiratory Rate 27 H 23 H 15 Blood Pressure 162/87 H 137/85 145/74 H Pulse Oximetry 100 Oxygen Delivery 02/08/25 09:03 02/08/25 09:46 02/08/25 10:01 Temperature Pulse Rate 100 99 86 Respiratory Rate 16 21 H 13 Blood Pressure 158/77 H 141/67 H 143/71 H Pulse Oximetry 99 97 Oxygen Delivery 02/08/25 10:16 02/08/25 10:31 02/08/25 11:16 Temperature Pulse Rate 85 86 82 Respiratory Rate 13 27 H 25 H Blood Pressure 141/63 H 133/83 132/68 Pulse Oximetry 97 Oxygen Delivery 02/08/25 11:30 02/08/25 11:46 Temperature Pulse Rate 85 84 Respiratory Rate 24 H 12 Blood Pressure 132/68 133/68 Pulse Oximetry Oxygen Delivery Exam Narrative: General: Old frail female who is awake but confused and appears uncomfortable and continues tomoan and groan, Lungs/Chest: Trachea central Clear BS B/L, No crackles or wheezing. Cardiac: RRR. Normal S1 S2. No murmurs Circulation: Pedal pulses are intact and symmetrical. Abdomen: Normal bowel sounds. Obese. Soft. She grimaces on abdominal exam Extremities: No clubbing, cyanosis or edema. Warm : [place] in place Neurologic: Follows commands with both hands and opens her mouth on exam. Moves all 4 extremities PERRL AOx 0 Skin: No Rash Results Labs 02/08/25 08:18 02/08/25 10:26 Labs: Short CBC 02/08/25 Range/Units 08:18 WBC 7.2 (4.5-10.0) K/mm3 Hgb 17.2 H D (12.0-15.0) g/dL Hct 53.6 H (37.0-47.0) % Plt Count 242 (150-375) k/mm3 BMP 02/08/25 02/08/25 08:18 10:26 Sodium 133 L 137 Potassium 5.4 H 4.3 Chloride 98 101 Carbon Dioxide < 5 L 8 L BUN 36 H D 36 H Creatinine 1.27 H 1.27 H Glucose 539 H* 476 H Calcium 10.8 H 10.7 H Cardiac Enzymes 02/08/25 Range/Units 08:18 Total Creatine Kinase < 20 L (30-135) U/L Troponin I 0.018 (0.000-0.034) ng/mL Liver Function 02/08/25 Range/Units 08:18 Total Bilirubin 0.9 (0.2-1.3) mg/dL AST 19 (14-36) U/L ALT 38 H (6-35) U/L Alkaline Phosphatase 92 (38-126) U/L Albumin 4.6 (3.5-5.1) g/dL Urine 02/08/25 Range/Units 09:40 Urine Color Yellow (Yellow) Urine Appearance Clear (Clear) Urine pH 5.0 (5.0-9.0) Ur Specific [place] 1.029 (1.001-1.035) Urine Protein 1+ H (Negative) mg/dL Urine Glucose (UA) 3+ H (Negative) mg/dL Quality VTE Prophylaxis VTE prophylaxis: pharmacologic ordered Hospitalist MIPS Advance Care Plan I have confirmed that the patient's Advanced Care Plan is present, code status is documented, or surrogate decision maker is listed in patient medical record.: Yes Medication Reconciliation I have utilized all available resources to obtain, update and review the patients current medications (includes all prescriptions, OTC, herbals, cannabis, and nutritional supplements).: Yes
--- NOTE | 2025-02-08 12:43 | ADMGEN ---
This patient, Ana M Junior, was admitted to Intensive Care Unit-10. Patient/family oriented to hospital policies and general routines including ID bracelet, bed and alarms, visiting hours, pain management, procedures, bathroom and other care routines, personal items, smoking policy, room service/diet, and visiting hours. Information on how to activate the Rapid Response Team has been discussed. Patient/Family are encouraged to report perceived risks to care and to ask questions if they do not understand what they are told or what they should do.
[2025-02-08 12:54] LABS: MRSA (PCR) NOT DETECTED (NOT DETECTE)
[2025-02-08] MEDS: SODIUM CHLORIDE 0.9% IV 1,000 ML 150 ML IV CONT (13:46)
[2025-02-08 14:45] LABS: Creatine Kinase 23 U/L (30-135); Lipase 247 U/L (23-300)
[2025-02-08 14:46] LABS: Anion Gap 21 mmol/L (4-12); Blood Urea Nitrogen 34 mg/dL (7-17); Calcium 9.8 mg/dL (8.4-10.2); Carbon Dioxide 14 mmol/L (22-30); Chloride 104 mmol/L (98-107); Estimated CRCL calculation 33 ml/min; Estimated Glomerular Filt Rate 56; Glucose 344 mg/dL (65-110); Potassium 3.6 mmol/L (3.4-5.0); Sodium 139 mmol/L (137-145)
[2025-02-08] MEDS: POTASSIUM CHLORIDE INJ 40 MEQ in SODIUM CHLORIDE 0.9% IV 500 ML 130 MEQ IVPB (15:15)
[2025-02-08 15:18] LABS: Ammonia < 9 umol/L (9-30)
[2025-02-08 15:24] LABS: MRSA (PCR) NOT DETECTED (NOT DETECTE)
--- NOTE | 2025-02-08 16:34 | PM.IMHP ---
H&P: HPI History of Present Illness Date/Time: 02/08/25 16:34 Chief Complaint: Altered mental status Narrative: 79-year-old female with history of CHF, CAD status post CABG, paroxysmal atrial fibrillation, insulin-dependent diabetes mellitus, history of CVA, essential hypertension, hyperlipidemia, diabetic neuropathy presents to [facility] with acute altered mental status superimposed on dementia. Unfortunately the patient was the night able to get her insulin for a few weeks due to financial difficulties. Diagnosed with DKA in the ER. Acidotic. Hot Iron Worker consulted. Started on DKA protocol. Review of Systems Review of Systems: All systems reviewed & are unremarkable except as noted in HPI and below (ctive objective) ROS unobtainable: Yes unobtainable due to medical condition and unobtainable due to mental status PMFSH Past Medical History Medical History Dementia CHF (congestive heart failure) Diabetes mellitus Acute CVA (cerebrovascular accident) Benign essential hypertension Kidney stones Coronary artery disease Myocardial infarction 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 History of total abdominal hysterectomy and bilateral salpingo-oophorectomy History of vein stripping Family History Family History Mother History of stroke Other Diabetes mellitus Sibling Alzheimer disease Father No problems noted. Social History Social History Social History: Surrogate medical decision maker: Mary Martinez, daughter. Code status: Full code. Smoking packs per day: 1 Smoking cigarettes per day: 20.0 Years smoked: 30 Smoking pack-years: 30.00 Smoking status: Never smoker Tobacco type: cigarettes Second hand tobacco smoke exposure: No Alcohol intake: never Substance use: never Substance use type: does not use Do You Feel Safe in your Home?: Yes Lack of Transportation: YES Lack of Food: Sometimes True Current Housing: I Have Housing Concerned About Future Housing: YES Difficulty Paying Gas/Electric Bills: YES Difficulty Paying for Meds: YES Currently Unemployed: No Education: High School Diploma/GED Difficulty w/ Childcare or Family Care: No Living arrangements: with family Additional living arrangements comments: daughter Occupation/Education: retired Gender identity (if verbalized by the patient): Female Sexual Orientation (if Verbalized by the Patient): Straight or Heterosexual Spiritual care concerns: No Agree to blood products: Yes Meds Home Medications and Allergies Home Medications ?Medication ?Instructions ?Recorded ?Confirmed ?Type blood-glucose,drug enforcement agent,cont #2 ea 09/23/23 02/08/25 Rx (poLightStyle Haritha 3 [place]) aspirin 81 mg chewable tablet 81 mg PO QPM #90 tabs 10/21/23 02/08/25 Rx paroxetine HCl 20 mg tablet 30 mg (1.5 x 20 mg) PO DAILY #135 02/01/24 02/08/25 Rx tabs rosuvastatin 10 mg tablet 10 mg PO QPM #90 tabs 02/01/24 02/08/25 Rx trazodone 50 mg tablet 50 mg PO QHS #90 tabs 02/01/24 02/08/25 Rx divalproex 125 mg tablet,delayed 125 mg PO BID #60 tabs 03/09/24 02/08/25 Rx release (Depakote) dextrose 40 % oral gel (Glucose 20 g PO Q15M PRN hypoglycemia 05/17/24 02/08/25 History Gel) glucagon 1 mg/0.2 mL subcutaneous 1 mg subcut PRN PRN blood sugar 05/17/24 02/08/25 History auto-injector (Gvoke HypoPen less than 60 unable to swallow 1-Pack) acetaminophen 500 mg tablet 1,000 mg (2 x 500 mg) PO TID PRN 05/23/24 02/08/25 Rx arabella 7 days #42 tabs pen needle, diabetic 31 gauge x #400 ea 06/01/24 02/08/25 Rx 5/16 (BD Ultra-Fine Short Pen Needle) enalapril maleate 10 mg tablet 10 mg PO DAILY #90 tabs 08/23/24 02/08/25 Rx insulin aspart U-100 100 unit/mL 6 unit (0.06 mL) subcut TIDWM #15 10/11/24 02/08/25 Rx (3 mL) subcutaneous pen (Novolog mL FlexPen U-100 Insulin aspart) memantine 10 mg tablet 10 mg PO BID #180 tabs 10/11/24 02/08/25 Rx empagliflozin 10 mg tablet 10 mg PO DAILY #30 tabs 10/23/24 02/08/25 Rx (Jardiance) blood-glucose sensor (FreeStyle #1 ea 11/23/24 02/08/25 Rx Haritha 3 Plus Sensor device) Allergies Allergy/AdvReac Type Severity Reaction Status Date / Time No Known Allergies Allergy Verified 02/08/25 13:16 Vital Signs Vital Signs - 24 hr 02/08/25 07:25 02/08/25 07:25 02/08/25 07:31 Temperature 97.3 F L Pulse Rate 83 83 83 Respiratory Rate 16 15 Blood Pressure 156/73 H 156/73 H Pulse Oximetry 100 100 Oxygen Delivery Room Air 02/08/25 07:46 02/08/25 08:01 02/08/25 08:20 Temperature Pulse Rate 100 84 99 Respiratory Rate 27 H 23 H 15 Blood Pressure 162/87 H 137/85 145/74 H Pulse Oximetry 100 Oxygen Delivery 02/08/25 09:03 02/08/25 09:46 02/08/25 10:01 Temperature Pulse Rate 100 99 86 Respiratory Rate 16 21 H 13 Blood Pressure 158/77 H 141/67 H 143/71 H Pulse Oximetry 99 97 Oxygen Delivery 02/08/25 10:16 02/08/25 10:31 02/08/25 11:16 Temperature Pulse Rate 85 86 82 Respiratory Rate 13 27 H 25 H Blood Pressure 141/63 H 133/83 132/68 Pulse Oximetry 97 Oxygen Delivery 02/08/25 11:30 02/08/25 11:46 Temperature Pulse Rate 85 84 Respiratory Rate 24 H 12 Blood Pressure 132/68 133/68 Pulse Oximetry Oxygen Delivery Exam Const: Other: Agitated, nonpurposeful groaning HENMT: Mouth: Yes moist mucous membranes Eyes: Pupils: Equal, round and reactive pupils present Neck: Neck: supple Resp: Effort & Inspection: normal respiratory effort Auscultation: clear to auscultation bilaterally Cardio: Rate: regular rate Rhythm: regular rhythm GI: Inspection: non-distended GI Palp: Yes Soft to palpation Other: Slightly tender diffusely, focal Neuro: Other: Moves all 4 extremities freely Extrem: General: no edema H&P: Results Labs Labs: Short CBC 02/08/25 Range/Units 08:18 WBC 7.2 (4.5-10.0) K/mm3 Hgb 17.2 H D (12.0-15.0) g/dL Hct 53.6 H (37.0-47.0) % Plt Count 242 (150-375) k/mm3 BMP 02/08/25 02/08/25 02/08/25 08:18 10:26 14:27 Sodium 133 L 137 139 Potassium 5.4 H 4.3 3.6 Chloride 98 101 104 Carbon Dioxide < 5 L 8 L 14 L BUN 36 H D 36 H 34 H Creatinine 1.27 H 1.27 H 0.96 Glucose 539 H* 476 H 344 H Calcium 10.8 H 10.7 H 9.8 Cardiac Enzymes 02/08/25 02/08/25 Range/Units 08:18 14:27 Total Creatine Kinase < 20 L 23 L (30-135) U/L Troponin I 0.018 (0.000-0.034) ng/mL Liver Function 02/08/25 Range/Units 08:18 Total Bilirubin 0.9 (0.2-1.3) mg/dL AST 19 (14-36) U/L ALT 38 H (6-35) U/L Alkaline Phosphatase 92 (38-126) U/L Albumin 4.6 (3.5-5.1) g/dL Urine 02/08/25 Range/Units 09:40 Urine Color Yellow (Yellow) Urine Appearance Clear (Clear) Urine pH 5.0 (5.0-9.0) Ur Specific [place] 1.029 (1.001-1.035) Urine Protein 1+ H (Negative) mg/dL Urine Glucose (UA) 3+ H (Negative) mg/dL Assessment and Plan Assessment and plan (1) CAD (coronary artery disease): Code(s): I25.10 - Atherosclerotic heart disease of [place] coronary artery without angina pectoris Status: Acute (2) Hx of CABG: Code(s): Z95.1 - Presence of aortocoronary bypass graft Status: Acute (3) PAF (paroxysmal atrial fibrillation): Code(s): I48.0 - Paroxysmal atrial fibrillation Status: Acute (4) CHF (congestive heart failure): Qualifiers: Heart failure type: diastolic Heart failure chronicity: chronic Qualified Code(s): I50.32 - Chronic diastolic (congestive) heart failure Code(s): I50.9 - Heart failure, unspecified Status: Acute (5) RONALD (acute kidney injury): Code(s): N17.9 - Acute kidney failure, unspecified Status: Resolved (6) DKA (diabetic ketoacidosis): Code(s): E11.10 - Type 2 diabetes mellitus with ketoacidosis without coma Status: Acute Plan DKA protocol serial labs. CT abdomen pelvis. Fluids per patient centered care specialist. Daughter reports patient should be DNR/DNI. ICU admission. Critical condition. Hospitalist MIPS Advance Care Plan I have confirmed that the patient's Advanced Care Plan is present, code status is documented, or surrogate decision maker is listed in patient medical record.: Yes Medication Reconciliation I have utilized all available resources to obtain, update and review the patients current medications (includes all prescriptions, OTC, herbals, cannabis, and nutritional supplements).: Yes
[2025-02-08] MEDS: KCL 20 MEQ/D5/0.45% SOD CHL 1,000 ML 150 ML IV CONT (17:19)
[2025-02-08 17:21] LABS: Toxigenic C. Diff NEGATIVE (NEGATIVE)
--- OUTSIDE RECORDS SUMMARY | 2025-02-08 17:24 | XMS_ITS | Encounter Summary ---
Author Organization [facility] Address [address] [place] [address] Care Team Providers Care Sawmill Production Worker Name Role Phone Unavailable Primary Care Provider Unavailabl e Encounter Details Date Type Department Care Team (Late st Contact Info) Description 05/20/2005 Outpatient Historical [facility] Cardiovas and Thor Surg at [facility] Heart [address] [address] Max Jhaveri MD [address] [place] [phone] Social History Tobacco Use Types Packs/Day Years Used Date Smoking Tobacco: Never Assessed Comments Unknown Sex and Gender Information Value Date Recorded Sex Assigned at Not on file 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
--- OUTSIDE RECORDS SUMMARY | 2025-02-08 17:24 | XMS_ITS | Encounter Summary ---
Author Organization [facility] Address [address] [place] [address] Care Team Providers Care Labor Economics Professor Name Role Phone Unavailable Primary Care Provider Unavailabl e Encounter Details Date Type Department Care Team (Late st Contact Info) Description 04/15/2005 Outpatient Historical [facility] Cardiovas and Thor Surg at [facility] Heart [address] [address] Max Jhaveir MD [address] [place] [phone] Social History Tobacco Use Types Packs/Day Years Used Date Smoking Tobacco: Never Assessed Comments Unknown Sex and Gender Information Value Date Recorded Sex Assigned at Not on file Legal Sex Female 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
--- OUTSIDE RECORDS SUMMARY | 2025-02-08 17:24 | XMS_ITS | Encounter Summary ---
Author Organization [facility] Address [address] [place] [address] Care Team Providers Care Electric Freight Car Operator Name Role Phone Unavailable Primary Care Provider Unavailabl e Encounter Details Date Type Department Care Team (Late st Contact Info) Description 04/18/2005 Outpatient Historical [facility] Support Serv. 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
--- OUTSIDE RECORDS SUMMARY | 2025-02-08 17:24 | XMS_ITS | Encounter Summary ---
Author Organization [facility] Address [address] [place] [address] Care Team Providers Care Education Teacher Name Role Phone Unavailable Primary Care Provider Unavailabl e Encounter Details Date Type Department Care Team (Late st Contact Info) Description 04/16/2005 Outpatient Historical [facility] Cardiovas and Thor Surg at [facility] Heart [address] [address] Richard Cotto, [place] NO ADDRESS ON FILE Social History Tobacco Use Types Packs/Day Years Used Date Smoking Tobacco: Never Assessed Comments Unknown Sex and Gender Information Value Date Recorded Sex Assigned at Not on file 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
--- OUTSIDE RECORDS SUMMARY | 2025-02-08 17:24 | XMS_ITS | Encounter Summary ---
Author Organization [facility] Address 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
--- OUTSIDE RECORDS SUMMARY | 2025-02-08 17:24 | XMS_ITS | Clinical Summary ---
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
--- OUTSIDE RECORDS SUMMARY | 2025-02-08 17:24 | XMS_ITS | Clinical Summary ---
Author Organization [facility] [address] Address [address] [place] [address] Care Team Providers Care Locomotive Driver Name Role Phone Catalina Mejia MD Primary Care Provider + [phone] Josef Groves MD Unavailable [phone] Allergies No known active allergies Medications [...] flash glucose scanning reader ([employer] [place] [address] [place] [facility] [place] [...] (07/22/2020): Added automatically from request for surgery [id number] Chronic cholecystitis with calculus 03/27/2020 Calculus of gallbladder with chronic cholecystitis without obstruction 03/27/2020 Overview (03/27/2020): Added automatically from request for surgery [id number] Type 2 diabetes mellitus wit h hyperglycemia, with long-term current use of insulin ([facility]) 07/15/2017 Assessment & Plan [...] provided as she was driving back to [employer]. Instructed not to drive until all 8 [...] rosuvastatin Assessment & Plan (05/27/2022 5:14 PM SUPERVISING BROKER): This is a chronic condition which is [...] care discussed. Coronary artery disease invo lving [place] coronary artery of [place] heart without angina pectoris 01/28/2017 Hx of [...] prescribed. Assessment & Plan (05/27/2022 5:15 PM SUPERVISING BROKER): This is a chronic condition. goal - LDL less than 70 Continue rosuvastatin. Encouraged to eat healthy, include fresh fruits and vegetables daily and avoid eating fried foods more than once per week. Encouraged to take medications as prescribed. Repeat lipid panel ordered. Assessment & Plan (03/11/2018 8:31 AM SUPERVISING BROKER): Continue statin and follow up with cardiology [...] prescribed. Assessment & Plan (05/27/2022 5:15 PM SUPERVISING BROKER): This is a chronic condition which is [...] ARB Assessment & Plan (03/11/2018 8:31 AM SUPERVISING BROKER): Controlled on current medications. Assessment & Plan [...] (10/05/2017): Added automatically from request for surgery [id number] Cellulitis of left lower extremity 12/28/2016 04/03/2020 [...] goal hba1c is under 7.0 to prevent termite treater helper diabetes complications ( eye , kidney and [...] Farxiga. Assessment & Plan (03/11/2018 8:30 AM SUPERVISING BROKER): A1c is 9.5. Increase Levemir to 34 [...] goal hba1c is under 7.0 to prevent termite treater helper diabetes complications ( eye , kidney and [...] on file Legal Sex Female 10:56 AM SUPERVISING BROKER Gender Identity Not on file Sexual Orientation Not on file Last Filed Vital Signs Vital Sign Reading Time Taken Comments Blood Pressure 118/64 08/11/2022 4:01 PM CDT Pulse 65 05/26/2022 2:15 PM SUPERVISING BROKER Temperature 36.3 C (97.3 F) 09/16/2020 8:32 AM CDT Respiratory Rate 15 09/16/2020 9:28 AM CDT Oxygen Saturation 97% 05/26/2022 2:15 PM SUPERVISING BROKER Inhaled Oxygen Concentration - - Weight 81.2 [...] Diagnosis Comments EGFR Routine 03/31/2024 10:51 AM SUPERVISING BROKER LIPID PANEL Routine 03/31/2024 10:51 AM SUPERVISING BROKER POCT HEMOGLOBIN A1C Routine 08/11/2022 4 :07 PM CDT Type 2 diabetes mellitus with hyperglycemia, with long-term current use of insulin (HCC) ALBUMIN CREATININE RATIO, URINE Routine 06/01/2022 8:10 AM SUPERVISING BROKER Type 2 diabetes mellitus with hyperglycemia, with long-term current use of insulin (HCC) COLONOSCOPY 09/16/2020 8:22 AM CDT from Last 3 Months or Most Recently Relevant to Health Maintenance Results * eGFR (03/31/2024 10:51 AM SUPERVISING BROKER) eGFR 82 >=60 mL/min/1. 73 m2 Comment: [...] reviewed 2021. Blood 03/31/2024 10:5 1 AM SUPERVISING BROKER 03/31/2024 5:14 PM SUPERVISING BROKER us Notinfile Unknown LAB BLOOD ORDERABLES Final Res ult [facility] [address] Department [place] [address] * Lipid panel (03/31/2024 10:51 AM SUPERVISING BROKER) Cholesterol 177 30 - 199 mg/dL Comment: [...] revised on 2017. Triglycerides 96 <=149 mg/dL [facility] Comment: Interpretive Data Ages < [...] revised on 2017. HDL 53 >=40 mg/dL [facility] Comment: Interpretive Data Ages < [...] on 2017. LDL, calculated 106 <=129 mg/dL [facility] Comment: Interpretive Data Ages < [...] revised on 2023. Non-HDL Cholesterol 124 mg/dL [facility] Comment: Interpretive Data Ages < [...] last revised on 2017. Chol/HDL ratio 3 [facility] Blood 03/31/2024 10:5 1 AM SUPERVISING BROKER 03/31/2024 2:12 PM SUPERVISING BROKER us Notinfile Unknown LAB BLOOD ORDERABLES Final Res ult [facility] [address] Department [place] [address] * POCT hemoglobin A1c (08/11/2022 4:07 PM CDT) Hemoglobin A1C, POC 7.2 % Blood 08/11/2022 4:07 PM CDT us Yennifer Cosby NP POINT OF CARE TEST ORDERABLES F inal Result * (ABNORMAL) Albumin Creatinine Ratio, Urine (06/01/2022 8:10 AM SUPERVISING BROKER) Albumin Ur 112.4 mg/L [facility] ([place]) Comment: Interpretive Data No reference range established. Current interpretive data was last revised 2018. Testing performed by: , [address] [place] [address]., [id number] Creatinine Ur 107.2 mg/dL [facility] ([place]) Comment: Interpretive Data No reference range established. Current interpretive data was last revised 2018. Testing performed by: , [address] [place] [address]., [id number] Albumin Creatinine Ratio, Ur 105(H) 1 - 29 mg/g [facility] ([place]) Comment:Testing performed by : , [address] [place] [address]., [id number] Urine 06/01/2022 8:10 AM SUPERVISING BROKER 06/01/2022 11:15 AM SUPERVISING BROKER us Yennifer Cosby SMALL EQUIPMENT OPERATOR LAB URINE ORDERABLES Final Resu lt [facility] ([place]) 1 [facility] Department [place] [address] * COLONOSCOPY (09/16/2020 8:22 AM CDT) Anatomical Region Laterality Modality Other Narrative Procedure Note Danitza Sawyer MD - 09/16/2020 8:22 AM CDT ENDOSCOPY LAB Patient Name: Ana M Junior Procedure Date: 09/16/2020 8:22 AM Admit Type: Outpatient Room: [facility] Date of : 1945 Instrument Name: [...] ofthe bowel preparation was evaluated using the BBPS([place] Bowel Preparation Scale) with scores of: RightColon [...] Recently Relevant to Health [place] [place] [address] [facility] MEDICARE [facility] [id number] [place] [address] [employer] website [facility]ALTHLINK [facility] MEDICARE [employer] website OPEN [employer]ESS [facility] [id number] MEDICARE Advance Directives For more information, please contact: [phone] * Full Code (Latest Code Status on File) Date Activated Date Inactivated Comments 09/16/2020 7:53 AM 09/16/2020 1:51 PM * Full Code Date Activated Date Inactivated Comments 04/08/2020 8:07 PM 04/09/2020 3:48 PM * Full Code Date Activated Date Inactivated Comments 12/04/2019 7:00 AM 12/04/2019 1:23 PM * Full Code Date Activated Date Inactivated Comments 10/02/2019 11:59 AM 10/02/2019 5:31 PM Care Teams Locomotive Driver Relationship Specialty Start Date End Date Catalina Mejia MD [address] [place] [id number] PCP - General Internal Medicine 09/05/19 Josef Groves MD [address] [place] [address] Consulting Physician General Surgery 04/08/20
--- OUTSIDE RECORDS SUMMARY | 2025-02-08 17:24 | XMS_ITS | Encounter Summary ---
Author Organization [facility] Address [address] [place] [address] Care Team Providers Care Data Entry Machine Operator Name Role Phone Unavailable Primary Care Provider Unavailabl e Encounter Details Date Type Department Care Team (Late st Contact Info) Description 04/15/2005 Outpatient Historical 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
--- OUTSIDE RECORDS SUMMARY | 2025-02-08 17:24 | XMS_ITS | Encounter Summary ---
Author Organization [facility] Address [address] [place] [address] Care Team Providers Care Scientific Glass Blower Name Role Phone Unavailable Primary Care Provider Unavailabl e Encounter Details Date Type Department Care Team (Latest Contact Info) Description 04/15/2005 Inpatient Historical HIS CARD WEBSPHERE ARCHITECT Max Jhaveri MD [address] [facility] [address] [place] [address] Cirilo Buenrostro MD [address] [facility] [address] [place] [id number] CORON ATHEROSCL ILIAMNA CORON VESSEL (Primary Dx) Social History Tobacco Use Types Packs/Day Years Used Date Smoking Tobacco: Never Assessed Comments Unknown Sex and Gender Information Value Date Recorded Sex Assigned at Not on file Legal Sex Female 5:02 AM AUTOMOTIVE GENERAL MANAGER Gender Identity Not on file Sexual Orientation Not on file documented as of this encounter Plan of Treatment Not on file documented as of this encounter Procedures Procedure Name Priority Date/Time Associated Diagnosis Comments POC GLUCOSE Routine 04/19/2005 5:35 AM AUTOMOTIVE GENERAL MANAGER POC GLUCOSE Routine 04/18/2005 9:01 PM AUTOMOTIVE GENERAL MANAGER POC GLUCOSE Routine 04/18/2005 4:37 PM AUTOMOTIVE GENERAL MANAGER POC GLUCOSE Routine 04/18/2005 11:10 AM AUTOMOTIVE GENERAL MANAGER POC GLUCOSE Routine 04/18/2005 5:32 AM AUTOMOTIVE GENERAL MANAGER CBC WITH DIFFERENTIAL Routine 04/18/2005 5:00 AM AUTOMOTIVE GENERAL MANAGER CBC WITH DIFFERENTIAL Routine 04/18/2005 5:00 AM AUTOMOTIVE GENERAL MANAGER BASIC METABOLIC PANEL Routine 04/18/2005 5:00 AM AUTOMOTIVE GENERAL MANAGER POC GLUCOSE Routine 04/17/2005 9:10 PM AUTOMOTIVE GENERAL MANAGER CVR ONLY, CKMB/CK Routine 04/17/2005 7:3 9 PM AUTOMOTIVE GENERAL MANAGER POC GLUCOSE Routine 04/17/2005 4:50 PM AUTOMOTIVE GENERAL MANAGER POC GLUCOSE Routine 04/17/2005 11:06 AM AUTOMOTIVE GENERAL MANAGER POC GLUCOSE Routine 04/17/2005 6:13 AM AUTOMOTIVE GENERAL MANAGER POC GLUCOSE Routine 04/17/2005 4:45 AM AUTOMOTIVE GENERAL MANAGER PT AND APTT Routine 04/17/2005 4:23 AM AUTOMOTIVE GENERAL MANAGER CBC WITH DIFFERENTIAL Routine 04/17/2005 4:23 AM AUTOMOTIVE GENERAL MANAGER CBC WITH DIFFERENTIAL Routine 04/17/2005 4:23 AM AUTOMOTIVE GENERAL MANAGER MAGNESIUM LEVEL Routine 04/17/2005 4:23 AM AUTOMOTIVE GENERAL MANAGER COMPREHENSIVE METABOLIC PANEL Routine 04/17/2005 4:23 AM AUTOMOTIVE GENERAL MANAGER POC GLUCOSE Routine 04/17/2005 1:59 AM AUTOMOTIVE GENERAL MANAGER CVR ONLY, CKMB/CK Routine 04/17/2005 1:0 0 AM AUTOMOTIVE GENERAL MANAGER HEMOGLOBIN AND HEMATOCRIT Routine 04/17/2005 1:00 AM AUTOMOTIVE GENERAL MANAGER POTASSIUM LEVEL Routine 04/17/2005 1:00 AM AUTOMOTIVE GENERAL MANAGER POC GLUCOSE Routine 04/17/2005 12:53 AM AUTOMOTIVE GENERAL MANAGER POC GLUCOSE Routine 04/16/2005 11:21 PM AUTOMOTIVE GENERAL MANAGER POC GLUCOSE Routine 04/16/2005 10:17 PM AUTOMOTIVE GENERAL MANAGER POC GLUCOSE Routine 04/16/2005 9:29 PM AUTOMOTIVE GENERAL MANAGER POC, BLOOD GASES Routine 04/16/2005 8:45 PM AUTOMOTIVE GENERAL MANAGER POC GLUCOSE Routine 04/16/2005 8:26 PM AUTOMOTIVE GENERAL MANAGER POTASSIUM LEVEL Routine 04/16/2005 8:00 PM AUTOMOTIVE GENERAL MANAGER MAGNESIUM LEVEL Routine 04/16/2005 8:00 PM AUTOMOTIVE GENERAL MANAGER POC GLUCOSE Routine 04/16/2005 7:51 PM AUTOMOTIVE GENERAL MANAGER POC GLUCOSE Routine 04/16/2005 6:31 PM AUTOMOTIVE GENERAL MANAGER POC GLUCOSE Routine 04/16/2005 5:36 PM AUTOMOTIVE GENERAL MANAGER POC GLUCOSE Routine 04/16/2005 4:19 PM AUTOMOTIVE GENERAL MANAGER POC, BLOOD GASES Routine 04/16/2005 4:05 PM AUTOMOTIVE GENERAL MANAGER CVR ONLY, CKMB/CK Routine 04/16/2005 3:5 7 PM AUTOMOTIVE GENERAL MANAGER PT AND APTT Routine 04/16/2005 3:57 PM AUTOMOTIVE GENERAL MANAGER CBC WITH DIFFERENTIAL Routine 04/16/2005 3:57 PM AUTOMOTIVE GENERAL MANAGER CBC WITH DIFFERENTIAL Routine 04/16/2005 3:57 PM AUTOMOTIVE GENERAL MANAGER MAGNESIUM LEVEL Routine 04/16/2005 3:57 PM AUTOMOTIVE GENERAL MANAGER BASIC METABOLIC PANEL Routine 04/16/2005 3:57 PM AUTOMOTIVE GENERAL MANAGER LIPID PANEL Routine 04/16/2005 6:10 AM AUTOMOTIVE GENERAL MANAGER URINALYSIS W/REFLEX MICROSCOPIC Routine 04/15/2005 4:23 PM AUTOMOTIVE GENERAL MANAGER BASIC METABOLIC PANEL PLUS Routine 04/15/2005 12:40 PM AUTOMOTIVE GENERAL MANAGER PT AND APTT Routine 04/15/2005 12:40 PM AUTOMOTIVE GENERAL MANAGER CBC WITH DIFFERENTIAL Routine 04/15/2005 12:40 PM AUTOMOTIVE GENERAL MANAGER CBC WITH DIFFERENTIAL Routine 04/15/2005 12:40 PM AUTOMOTIVE GENERAL MANAGER BASIC METABOLIC PANEL Routine 04/15/2005 12:40 PM AUTOMOTIVE GENERAL MANAGER documented in this encounter Results * (ABNORMAL) POC GLUCOSE (04/19/2005 5:35 AM AUTOMOTIVE GENERAL MANAGER) COMMENT, GLU POC Notified RN INTERFACE SYSTEM GLUCOSE POC 142(H) 65 - 109 mg/dL INTERFACE SYSTEM 04/19/2005 5:35 AM AUTOMOTIVE GENERAL MANAGER Cirilo Buenrostro MD POINT OF CARE TESTING Fin al Result Performing Organization Address [facility] de Phone Number INTERFACE SYSTEM Refer to clinic/hospital department * (ABNORMAL) POC GLUCOSE (04/18/2005 9:01 PM AUTOMOTIVE GENERAL MANAGER) COMMENT, GLU POC Notified RN INTERFACE SYSTEM GLUCOSE POC 221(H) 65 - 109 mg/dL INTERFACE SYSTEM 04/18/2005 9:01 PM AUTOMOTIVE GENERAL MANAGER Cirilo Buenrostro MD POINT OF CARE TESTING Fin al Result Performing Organization Address [facility] de Phone Number INTERFACE SYSTEM Refer to clinic/hospital department * (ABNORMAL) POC GLUCOSE (04/18/2005 4:37 PM AUTOMOTIVE GENERAL MANAGER) GLUCOSE POC 170(H) 65 - 109 mg/dL INTERFACE SYSTEM 04/18/2005 4:37 PM AUTOMOTIVE GENERAL MANAGER Cirilo Buenrostro MD POINT OF CARE TESTING Fin al Result Performing Organization Address [facility] de Phone Number INTERFACE SYSTEM Refer to clinic/hospital department * (ABNORMAL) POC GLUCOSE (04/18/2005 11:10 AM AUTOMOTIVE GENERAL MANAGER) COMMENT, GLU POC Notified RN INTERFACE SYSTEM GLUCOSE POC 220(H) 65 - 109 mg/dL INTERFACE SYSTEM 04/18/2005 11:1 0 AM AUTOMOTIVE GENERAL MANAGER Cirilo Buenrostro MD POINT OF CARE TESTING Fin al Result Performing Organization Address [facility] Phone Number INTERFACE SYSTEM Refer to clinic/hospital department * (ABNORMAL) POC GLUCOSE (04/18/2005 5:32 AM AUTOMOTIVE GENERAL MANAGER) GLUCOSE POC 193(H) 65 - 109 mg/dL INTERFACE SYSTEM 04/18/2005 5:32 AM AUTOMOTIVE GENERAL MANAGER Cirilo Buenrostro MD POINT OF CARE TESTING Fin al Result Performing Organization Address [facility] Phone Number INTERFACE SYSTEM Refer to clinic/hospital department * (ABNORMAL) CBC WITH DIFFERENTIAL (04/18/2005 5:00 AM AUTOMOTIVE GENERAL MANAGER) NEUTROPHIL ABSOLUTE 5.67 1.90 - 7.00 K/uL [...] Normal INTER FACE SYSTEM 04/18/2005 5:00 AM AUTOMOTIVE GENERAL MANAGER Cirilo Buenrostro MD HEMATOLOGY ORDERABLES Fin al Result Performing Organization Address [facility] Phone Number INTERFACE SYSTEM Refer to clinic/hospital department * (ABNORMAL) CBC WITH DIFFERENTIAL (04/18/2005 5:00 AM AUTOMOTIVE GENERAL MANAGER) WBC 7.0 4.0 - 9.8 K/uL INTERFACE [...] 12.4 fL INTERFACE SYSTEM 04/18/2005 5:00 AM AUTOMOTIVE GENERAL MANAGER Cirilo Buenrostro MD HEMATOLOGY ORDERABLES Fin al Result Performing Organization Address [facility] Phone Number INTERFACE SYSTEM Refer to clinic/hospital department * (ABNORMAL) BASIC METABOLIC PANEL (04/18/2005 5:00 AM AUTOMOTIVE GENERAL MANAGER) GLUCOSE 186(H) 65 - 109 mg/dL INTERFACE [...] 30 mmol/L INTERFACE SYSTEM 04/18/2005 5:00 AM AUTOMOTIVE GENERAL MANAGER Cirilo Buenrostro MD CHEMISTRY ORDERABLES Sommer l Result Performing Organization Address [facility] Co de Phone Number INTERFACE SYSTEM Refer to clinic/hospital department * (ABNORMAL) POC GLUCOSE (04/17/2005 9:10 PM AUTOMOTIVE GENERAL MANAGER) GLUCOSE POC 261(H) 65 - 109 mg/dL INTERFACE SYSTEM 04/17/2005 9:10 PM AUTOMOTIVE GENERAL MANAGER Cirilo Buenrostro MD POINT OF CARE TESTING Fin al Result Performing Organization Address [facility] de Phone Number INTERFACE SYSTEM Refer to clinic/hospital department * (ABNORMAL) CVR ONLY, CKMB/CK (04/17/2005 7:39 PM AUTOMOTIVE GENERAL MANAGER) CKMB 7.5(AA) <=3.8 ng/mL INTERFACE SYSTEM Comment:Persistent abnormal result CKMB INTERP See Below INTERFAC E SYSTEM Comment:Elevated CKMB,consis tent with Myocardial Injury CK 339(H) 10 - 145 U/L INTERFACE SYSTEM CARDIAC RELATIVE INDEX 2.2 <=4.0 INTERFACE SYSTEM 04/17/2005 7:39 PM AUTOMOTIVE GENERAL MANAGER Max Jhaveri MD CHEMISTRY ORDERABLES Final Re sult Performing Organization Address [facility] Phone Number INTERFACE SYSTEM Refer to clinic/hospital department * (ABNORMAL) POC GLUCOSE (04/17/2005 4:50 PM AUTOMOTIVE GENERAL MANAGER) GLUCOSE POC 228(H) 65 - 109 mg/dL INTERFACE SYSTEM 04/17/2005 4:50 PM AUTOMOTIVE GENERAL MANAGER Cirilo Buenrostro MD POINT OF CARE TESTING Fin al Result Performing Organization Address [facility] de Phone Number INTERFACE SYSTEM Refer to clinic/hospital department * (ABNORMAL) POC GLUCOSE (04/17/2005 11:06 AM AUTOMOTIVE GENERAL MANAGER) GLUCOSE POC 141(H) 65 - 109 mg/dL INTERFACE SYSTEM 04/17/2005 11:0 6 AM AUTOMOTIVE GENERAL MANAGER Cirilo Buenrostro MD POINT OF CARE TESTING Fin al Result Performing Organization Address [facility] de Phone Number INTERFACE SYSTEM Refer to clinic/hospital department * (ABNORMAL) POC GLUCOSE (04/17/2005 6:13 AM AUTOMOTIVE GENERAL MANAGER) GLUCOSE POC 115(H) 65 - 109 mg/dL INTERFACE SYSTEM 04/17/2005 6:13 AM AUTOMOTIVE GENERAL MANAGER Cirilo Buenrostro MD POINT OF CARE TESTING Fin al Result Performing Organization Address [place]/[facility] de Phone Number INTERFACE SYSTEM Refer to clinic/hospital department * POC GLUCOSE (04/17/2005 4:45 AM AUTOMOTIVE GENERAL MANAGER) GLUCOSE POC 99 65 - 109 mg/dL INTERFACE SYSTEM 04/17/2005 4:45 AM AUTOMOTIVE GENERAL MANAGER Cirilo Buenrostro MD POINT OF CARE TESTING Fin al Result Performing Organization Address [facility] Phone Number INTERFACE SYSTEM Refer to clinic/hospital department * (ABNORMAL) CBC WITH DIFFERENTIAL (04/17/2005 4:23 AM AUTOMOTIVE GENERAL MANAGER) NEUTROPHILS 83(H) 45 - 70 % INTERFAC [...] 0.20 K/uL INTERFACE SYSTEM 04/17/2005 4:23 AM AUTOMOTIVE GENERAL MANAGER Max Jhaveri MD HEMATOLOGY ORDERABLES Final R esult Performing Organization Address [place]/[facility] de Phone Number INTERFACE SYSTEM Refer to clinic/hospital department * (ABNORMAL) CBC WITH DIFFERENTIAL (04/17/2005 4:23 AM AUTOMOTIVE GENERAL MANAGER) WBC 8.5 4.0 - 9.8 K/uL INTERFACE [...] 12.4 fL INTERFACE SYSTEM 04/17/2005 4:23 AM AUTOMOTIVE GENERAL MANAGER Max Jhaveri MD HEMATOLOGY ORDERABLES Final R esult Performing Organization Address [facility] Phone Number INTERFACE SYSTEM Refer to clinic/hospital department * MAGNESIUM LEVEL (04/17/2005 4:23 AM AUTOMOTIVE GENERAL MANAGER) MAGNESIUM 1.8 1.5 - 2.5 mg/dL INTERFACE SYSTEM 04/17/2005 4:23 AM AUTOMOTIVE GENERAL MANAGER Max Jhaveri MD CHEMISTRY ORDERABLES Final Re sult Performing Organization Address [facility] Phone Number INTERFACE SYSTEM Refer to clinic/hospital department * (ABNORMAL) PT AND APTT (04/17/2005 4:23 AM AUTOMOTIVE GENERAL MANAGER) PROTIME 16.4(H) 12.7 - 15.1 Seconds INTERFACE [...] range for unfractionated heparin 04/17/2005 4:23 AM AUTOMOTIVE GENERAL MANAGER Max Jhaveri MD HEMATOLOGY ORDERABLES Final R esult Performing Organization Address [place]/[facility]/ZIP Co de Phone Number INTERFACE SYSTEM Refer to clinic/hospital department * (ABNORMAL) COMPREHENSIVE METABOLIC PANEL (04/17/2005 4:23 AM AUTOMOTIVE GENERAL MANAGER) GLUCOSE 101 65 - 109 mg/dL INTERFACE [...] 30 mmol/L INTERFACE SYSTEM 04/17/2005 4:23 AM AUTOMOTIVE GENERAL MANAGER Max Jhaveri MD CHEMISTRY ORDERABLES Final Re sult Performing Organization Address [place]/[facility]/ZIP Co de Phone Number INTERFACE SYSTEM Refer to clinic/hospital department * (ABNORMAL) POC GLUCOSE (04/17/2005 1:59 AM AUTOMOTIVE GENERAL MANAGER) GLUCOSE POC 134(H) 65 - 109 mg/dL INTERFACE SYSTEM 04/17/2005 1:59 AM AUTOMOTIVE GENERAL MANAGER Cirilo Buenrostro MD POINT OF CARE TESTING Fin al Result Performing Organization Address [facility] Phone Number INTERFACE SYSTEM Refer to clinic/hospital department * (ABNORMAL) HEMOGLOBIN AND HEMATOCRIT (04/17/2005 1:00 AM AUTOMOTIVE GENERAL MANAGER) HEMOGLOBIN 11.8 11.8 - 14.8 g/dL INTERFACE SYSTEM HEMATOCRIT 35.3(L) 35.5 - 44.0 % INTERFACE SYSTEM 04/17/2005 1:00 AM AUTOMOTIVE GENERAL MANAGER Max Jhaveri MD HEMATOLOGY ORDERABLES Final R esult Performing Organization Address [facility] Phone Number INTERFACE SYSTEM Refer to clinic/hospital department * POTASSIUM LEVEL (04/17/2005 1:00 AM AUTOMOTIVE GENERAL MANAGER) Pathologist [facility] POTASSIUM 4.1 3.5 - 4.9 mmol/L INTERFACE SYSTEM 04/17/2005 1:00 AM AUTOMOTIVE GENERAL MANAGER Max Jhaveri MD CHEMISTRY ORDERABLES Final Re sult Performing Organization Address [facility] Phone Number INTERFACE SYSTEM Refer to clinic/hospital department * (ABNORMAL) CVR ONLY, CKMB/CK (04/17/2005 1:00 AM AUTOMOTIVE GENERAL MANAGER) CKMB 22.5(AA) <=3.8 ng/mL INTERFACE SYSTEM Comment:Persistent abnormal result CKMB INTERP See Below INTERFAC E SYSTEM Comment:Elevated CKMB,consis tent with Myocardial Injury CK 325(H) 10 - 145 U/L INTERFACE SYSTEM CARDIAC RELATIVE INDEX 6.9(H) <=4.0 INTERFACE SYSTEM 04/17/2005 1:00 AM AUTOMOTIVE GENERAL MANAGER Max Jhaveri MD CHEMISTRY ORDERABLES Final Re sult Performing Organization Address [facility]/ZIP Co de Phone Number INTERFACE SYSTEM Refer to clinic/hospital department * (ABNORMAL) POC GLUCOSE (04/17/2005 12:53 AM AUTOMOTIVE GENERAL MANAGER) GLUCOSE POC 145(H) 65 - 109 mg/dL INTERFACE SYSTEM 04/17/2005 12:5 3 AM AUTOMOTIVE GENERAL MANAGER Cirilo Buenrostro MD POINT OF CARE TESTING Fin al Result Performing Organization Address [facility] de Phone Number INTERFACE SYSTEM Refer to clinic/hospital department * (ABNORMAL) POC GLUCOSE (04/16/2005 11:21 PM AUTOMOTIVE GENERAL MANAGER) GLUCOSE POC 160(H) 65 - 109 mg/dL INTERFACE SYSTEM 04/16/2005 11:2 1 PM AUTOMOTIVE GENERAL MANAGER Cirilo Buenrostro MD POINT OF CARE TESTING Fin al Result Performing Organization Address [facility] de Phone Number INTERFACE SYSTEM Refer to clinic/hospital department * (ABNORMAL) POC GLUCOSE (04/16/2005 10:17 PM AUTOMOTIVE GENERAL MANAGER) GLUCOSE POC 159(H) 65 - 109 mg/dL INTERFACE SYSTEM 04/16/2005 10:1 7 PM AUTOMOTIVE GENERAL MANAGER Cirilo Buenrostro MD POINT OF CARE TESTING Fin al Result Performing Organization Address [facility] de Phone Number INTERFACE SYSTEM Refer to clinic/hospital department * (ABNORMAL) POC GLUCOSE (04/16/2005 9:29 PM AUTOMOTIVE GENERAL MANAGER) GLUCOSE POC 178(H) 65 - 109 mg/dL INTERFACE SYSTEM 04/16/2005 9:29 PM AUTOMOTIVE GENERAL MANAGER Cirilo Buenrostro MD POINT OF CARE TESTING Fin al Result Performing Organization Address [place]/[facility] de Phone Number INTERFACE SYSTEM Refer to clinic/hospital department * (ABNORMAL) POC RT, BLOOD GASES (04/16/2005 8:45 PM AUTOMOTIVE GENERAL MANAGER) PH ARTERIAL 7.40 7.35 - 7.45 INTERFACE [...] RN AWARE INTERFACE SYSTEM 04/16/2005 8:45 PM AUTOMOTIVE GENERAL MANAGER Cirilo Buenrostro MD CHEMISTRY ORDERABLES Sommer l Result Performing Organization Address [facility] Co de Phone Number INTERFACE SYSTEM Refer to clinic/hospital department * (ABNORMAL) POC GLUCOSE (04/16/2005 8:26 PM AUTOMOTIVE GENERAL MANAGER) GLUCOSE POC 190(H) 65 - 109 mg/dL INTERFACE SYSTEM 04/16/2005 8:26 PM AUTOMOTIVE GENERAL MANAGER Cirilo Buenrostro MD POINT OF CARE TESTING Fin al Result Performing Organization Address [facility] de Phone Number INTERFACE SYSTEM Refer to clinic/hospital department * POTASSIUM LEVEL (04/16/2005 8:00 PM AUTOMOTIVE GENERAL MANAGER) POTASSIUM 3.8 3.5 - 4.9 mmol/L INTERFACE SYSTEM Comment: Testing was performed on Serum. Specimen of choice is [place] Heparinized Plasma. Serum Potassium Reference Range: 5 years - 150 years 3.5 - 5.0 mmol/L 1 year - 5 years 3.4 - 4.7 mmol/L 15 days - 1 year 4.1 - 5.3 mmol/L 0 days - 15 days 3.7 - 5.9 mmol/L 04/16/2005 8:00 PM AUTOMOTIVE GENERAL MANAGER Max Jhaveri MD CHEMISTRY ORDERABLES Final Re sult Performing Organization Address [place]/[facility] Phone Number INTERFACE SYSTEM Refer to clinic/hospital department * MAGNESIUM LEVEL (04/16/2005 8:00 PM AUTOMOTIVE GENERAL MANAGER) MAGNESIUM 2.1 1.5 - 2.5 mg/dL INTERFACE SYSTEM 04/16/2005 8:00 PM AUTOMOTIVE GENERAL MANAGER Max Jhaveri MD CHEMISTRY ORDERABLES Final Re sult Performing Organization Address [facility] Phone Number INTERFACE SYSTEM Refer to clinic/hospital department * (ABNORMAL) POC GLUCOSE (04/16/2005 7:51 PM AUTOMOTIVE GENERAL MANAGER) GLUCOSE POC 186(H) 65 - 109 mg/dL INTERFACE SYSTEM 04/16/2005 7:51 PM AUTOMOTIVE GENERAL MANAGER Cirilo Buenrostro MD POINT OF CARE TESTING Fin al Result Performing Organization Address [facility] Phone Number INTERFACE SYSTEM Refer to clinic/hospital department * (ABNORMAL) POC GLUCOSE (04/16/2005 6:31 PM AUTOMOTIVE GENERAL MANAGER) GLUCOSE POC 167(H) 65 - 109 mg/dL INTERFACE SYSTEM 04/16/2005 6:31 PM AUTOMOTIVE GENERAL MANAGER Cirilo Buenrostro MD POINT OF CARE TESTING Fin al Result Performing Organization Address [facility] de Phone Number INTERFACE SYSTEM Refer to clinic/hospital department * (ABNORMAL) POC GLUCOSE (04/16/2005 5:36 PM AUTOMOTIVE GENERAL MANAGER) GLUCOSE POC 148(H) 65 - 109 mg/dL INTERFACE SYSTEM 04/16/2005 5:36 PM AUTOMOTIVE GENERAL MANAGER Cirilo Buenrostro MD POINT OF CARE TESTING Fin al Result Performing Organization Address [place]/[facility] de Phone Number INTERFACE SYSTEM Refer to clinic/hospital department * (ABNORMAL) POC GLUCOSE (04/16/2005 4:19 PM AUTOMOTIVE GENERAL MANAGER) GLUCOSE POC 143(H) 65 - 109 mg/dL INTERFACE SYSTEM 04/16/2005 4:19 PM AUTOMOTIVE GENERAL MANAGER Cirilo Buenrostro MD POINT OF CARE TESTING Fin al Result Performing Organization Address [facility] de Phone Number INTERFACE SYSTEM Refer to clinic/hospital department * (ABNORMAL) POC RT, BLOOD GASES (04/16/2005 4:05 PM AUTOMOTIVE GENERAL MANAGER) PH ARTERIAL 7.44 7.35 - 7.45 INTERFACE [...] RN NOTIFIED INTERFACE SYSTEM 04/16/2005 4:05 PM AUTOMOTIVE GENERAL MANAGER Cirilo Buenrostro MD CHEMISTRY ORDERABLES Sommer l Result Performing Organization Address [place]/[facility] Co de Phone Number INTERFACE SYSTEM Refer to clinic/hospital department * (ABNORMAL) CVR ONLY, CKMB/CK (04/16/2005 3:57 PM AUTOMOTIVE GENERAL MANAGER) CKMB 28.2(AA) <=3.8 ng/mL INTERFACE SYSTEM Comment:Results called to ba rb at 04/16/2005 4:50 PM and read back verified. CKMB INTERP See Below INTERFAC E SYSTEM Comment:Elevated CKMB,consis tent with Myocardial Injury. CK 234(H) 10 - 145 U/L INTERFACE SYSTEM CARDIAC RELATIVE INDEX 12.0(H) <=4.0 INTERFACE SYSTEM 04/16/2005 3:57 PM AUTOMOTIVE GENERAL MANAGER Max Jhaveri MD CHEMISTRY ORDERABLES Final Re sult Performing Organization Address [facility] Phone Number INTERFACE SYSTEM Refer to clinic/hospital department * (ABNORMAL) CBC WITH DIFFERENTIAL (04/16/2005 3:57 PM AUTOMOTIVE GENERAL MANAGER) NEUTROPHILS 77(H) 45 - 70 % INTERFAC [...] 0.20 K/uL INTERFACE SYSTEM 04/16/2005 3:57 PM AUTOMOTIVE GENERAL MANAGER Max Jhaveri MD HEMATOLOGY ORDERABLES Final R esult Performing Organization Address [facility] de Phone Number INTERFACE SYSTEM Refer to clinic/hospital department * (ABNORMAL) CBC WITH DIFFERENTIAL (04/16/2005 3:57 PM AUTOMOTIVE GENERAL MANAGER) WBC 8.3 4.0 - 9.8 K/uL INTERFACE [...] 12.4 fL INTERFACE SYSTEM 04/16/2005 3:57 PM AUTOMOTIVE GENERAL MANAGER Max Jhaveri MD HEMATOLOGY ORDERABLES Final R esult Performing Organization Address [place]/[facility] Phone Number INTERFACE SYSTEM Refer to clinic/hospital department * (ABNORMAL) PT AND APTT (04/16/2005 3:57 PM AUTOMOTIVE GENERAL MANAGER) PROTIME 17.9(H) 12.7 - 15.1 Seconds INTERFACE [...] range for unfractionated heparin 04/16/2005 3:57 PM AUTOMOTIVE GENERAL MANAGER Max Jhaveri MD HEMATOLOGY ORDERABLES Final R esult Performing Organization Address [place]/[facility] de Phone Number INTERFACE SYSTEM Refer to clinic/hospital department * MAGNESIUM LEVEL (04/16/2005 3:57 PM AUTOMOTIVE GENERAL MANAGER) MAGNESIUM 1.9 1.5 - 2.5 mg/dL INTERFACE SYSTEM 04/16/2005 3:57 PM AUTOMOTIVE GENERAL MANAGER Max Jhaveri MD CHEMISTRY ORDERABLES Final Re sult Performing Organization Address [facility] Phone Number INTERFACE SYSTEM Refer to clinic/hospital department * (ABNORMAL) BASIC METABOLIC PANEL (04/16/2005 3:57 PM AUTOMOTIVE GENERAL MANAGER) GLUCOSE 142(H) 65 - 109 mg/dL INTERFACE [...] and redraw if necessary. 04/16/2005 3:57 PM AUTOMOTIVE GENERAL MANAGER Max Jhaveri MD CHEMISTRY ORDERABLES Final Re sult Performing Organization Address [facility] Phone Number INTERFACE SYSTEM Refer to clinic/hospital department * LIPID PANEL (04/16/2005 6:10 AM AUTOMOTIVE GENERAL MANAGER) LIPID PANEL COMMENT See below INTERFACE SYSTEM [...] section for risk classifications. 04/16/2005 6:10 AM AUTOMOTIVE GENERAL MANAGER Cirilo Buenrostro MD CHEMISTRY ORDERABLES Sommer l Result Performing Organization Address [facility] Phone Number INTERFACE SYSTEM Refer to clinic/hospital department * (ABNORMAL) URINALYSIS (04/15/2005 4:23 PM AUTOMOTIVE GENERAL MANAGER) COLOR UA Yellow INTERFACE SYSTEM CLARITY UA [...] Seen /HPF INTERFACE SYSTEM 04/15/2005 4:23 PM AUTOMOTIVE GENERAL MANAGER Cirilo Buenrostro MD URINE ORDERABLES Final Re sult Performing Organization Address [facility] Phone Number INTERFACE SYSTEM Refer to clinic/hospital department * BASIC METABOLIC PANEL PLUS (04/15/2005 12:40 PM AUTOMOTIVE GENERAL MANAGER) AST 21 12 - 32 U/L INTERFACE SYSTEM ALKALINE PHOSPHATASE 65 35 - 104 U/L INTERFACE SYSTEM BILIRUBIN TOTAL 0.3 0.2 - 1.0 mg/dL INTERFACE SYSTEM ALBUMIN 4.0 3.4 - 4.8 g/dL INTERFACE SYSTEM TOTAL PROTEIN 7.3 6.3 - 8.6 g/dL INTERFACE SYSTEM ALT 20 0 - 31 U/L INTERFACE SYSTEM 04/15/2005 12:4 0 PM AUTOMOTIVE GENERAL MANAGER Cirilo Buenrostro MD CHEMISTRY ORDERABLES Sommer l Result Performing Organization Address [facility] de Phone Number INTERFACE SYSTEM Refer to clinic/hospital department * CBC WITH DIFFERENTIAL (04/15/2005 12:40 PM AUTOMOTIVE GENERAL MANAGER) NEUTROPHILS 56 45 - 70 % INTERFAC [...] K/uL INTERFACE SYSTEM 04/15/2005 12:4 0 PM AUTOMOTIVE GENERAL MANAGER Cirilo Buenrostro MD HEMATOLOGY ORDERABLES Fin al Result Performing Organization Address [facility] de Phone Number INTERFACE SYSTEM Refer to clinic/hospital department * (ABNORMAL) CBC WITH DIFFERENTIAL (04/15/2005 12:40 PM AUTOMOTIVE GENERAL MANAGER) WBC 3.7(L) 4.0 - 9.8 K/uL INTERFACE [...] fL INTERFACE SYSTEM 04/15/2005 12:4 0 PM AUTOMOTIVE GENERAL MANAGER Cirilo Buenrostro MD HEMATOLOGY ORDERABLES Fin al Result Performing Organization Address [place]/[facility] de Phone Number INTERFACE SYSTEM Refer to clinic/hospital department * PT AND APTT (04/15/2005 12:40 PM AUTOMOTIVE GENERAL MANAGER) PROTIME 14.8 12.7 - 15.1 Seconds INTERFACE [...] for unfractionated heparin 04/15/2005 12:4 0 PM AUTOMOTIVE GENERAL MANAGER Cirilo Buenrostro MD HEMATOLOGY ORDERABLES Fin al Result Performing Organization Address [facility] de Phone Number INTERFACE SYSTEM Refer to clinic/hospital department * (ABNORMAL) BASIC METABOLIC PANEL (04/15/2005 12:40 PM AUTOMOTIVE GENERAL MANAGER) GLUCOSE 145(H) 65 - 109 mg/dL INTERFACE [...] mmol/L INTERFACE SYSTEM 04/15/2005 12:4 0 PM AUTOMOTIVE GENERAL MANAGER us Cirilo Buenrostro MD CHEMISTRY ORDERABLES Sommer avila Result INTERFACE SYSTEM Refer to clinic/hospital department documented in this encounter Visit Diagnoses Diagnosis Coronary atherosclerosis of [place] coronary artery- Primary documented in this encounter
--- OUTSIDE RECORDS SUMMARY | 2025-02-08 17:24 | XMS_ITS | Clinical Summary ---
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 4 Active glucose (GLUTOSE) 40 % Gel Take 20 g by mouth every 15 minutes as needed for Low blood sugar. 5 Active Glucagon 1 MG/0.2ML Solution Auto-injector 1 Each by Subcutaneous route daily as needed for Other (low blood sugar). 5 Active Tresiba FlexTouch 200 UNIT/ML Solution Pen-injector 35 Units by Subcutaneous route 2 times daily (before breakfast and at bedtime). Check blood sugar and if it keeps increasing over 3 days, then on the third day increase by 3 units. Active insulin lispro (HumaLOG) 100 UNIT/ML Solution 6 Units by Subcutaneous route 3 times daily (with meals). Use as directed 6 mL 5 Active PARoxetine (PAXIL) 10 MG Tablet Take 1 Tablet by mouth daily for 30 doses. 30 Tablet 5 01/14/20 25 traZODone (DESYREL) 50 MG Tablet Take 1 Tablet by mouth nightly for 30 days. 30 Tablet 5 01/14/20 25 empagliflozin (JARDIANCE) 10 MG Tablet Take 1 Tablet by mouth daily for 30 days. 30 Tablet 5 01/14/20 25 rosuvastatin (CRESTOR) 10 MG Tablet Take 1 Tablet by mouth nightly for 30 days. 30 Tablet 5 01/14/20 25 enalapril (VASOTEC) 10 MG Tablet Take 1 Tablet by mouth daily for 30 days. 30 Capsule 5 01/14/20 25 ARIPiprazole (ABILIFY) 5 MG Tablet Take 1 Tablet by mouth daily for 30 days. 30 Tablet 5 01/14/20 25 furosemide (LASIX) 20 MG Tablet Take 2 Tablets by mouth daily for 30 days. 30 Tablet 5 01/14/20 25 polyethylene glycol (GLYCOLAX, MIRALAX) 17 g PackIndication s:Constipation Take 1 Packet by mouth 2 times daily as needed for Constipation - 1st line for up to 30 days. Dissolve in 4-8 oz of liquid. Indications: Constipation 60 Packet 5 01/14/20 25 melatonin 3 MG Tablet Take 2 Tablets by mouth nightly as needed for Other (Sleep) for up to 30 days. 60 Tablet 5 01/14/20 25 memantine (NAMENDA) 10 MG Tablet Take 1 Tablet by mouth 2 times daily for 30 days. 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 12/11/2024 Encephalopathy acute 12/09/2024 Abnormality of gait 12/09/2024 CAD (coronary artery disease), autologous vein b ypass graft 12/09/2024 PAF (paroxysmal atrial fibrillation) 12/09/2024 Dementia 12/09/2024 Diastolic dysfunction 12/09/2024 Hiatal hernia with GERD 12/09/2024 Insulin dependent type 2 diabetes mellitus 12/09 Intentional ibuprofen overdose 12/09/2024 Long-term insulin use 12/09/2024 MDD (major depressive disorder) 12/09/2024 Noncompliance with treatment 12/09/2024 Previous back surgery 12/09/2024 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 12/09/2024 Suicide attempt by drug overdose 12/09/2024 Physical debility 12/09/2024 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 09/2024 Primary osteoarthritis of both knees 08/27/2017 Type 2 diabetes mellitus with hyperglycemia 07/04 Hx of CABG 01/28/2017 Overview (12/09/2024): CABG twice Hyperlipidemia 08/16/2012 Overview (12/09/2024): HYPERLIPIDEMIA NEC/NOS Hypertension associated with diabetes 08/16/2012 Overview (12/09/2024): HYPERTENSION NOS Encounters Date Type Department Care Team Description 12/11/2024 12:31 PM CDT - 12/14/2024 1:58 PM CDT Hospital Encounter [facility] [address] [place] [phone] Jarod Elias MD Major depressive disorder with psychotic features Discharge Disposition: Discharged to home or Selfcare 12/11/2024 Travel 12/09/2024 5:00 PM CDT - 12/11/2024 12:30 PM CDT Hospital Encounter [facility] [address] [place] [phone] Jayden Ojeda MD Swayze, Matthew David, DO Memon, Muhammad Ali, MD Chennamaneni, Venu, MD Encephalopathy acute Discharge Disposition: Short Term Hospital for Inpt Care 12/09/2024 Travel from Last 3 Months Social History Tobacco Use Types Packs/Day Years Used Date Smoking Tobacco: Never Smokeless Tobacco: Never Tobacco Cessation:Counseling Given: Not Answered Alcohol Use Standard Drinks/Week Comments Never 0 (1 standard drink = 0.6 oz pur e alcohol) Social Connection and Isolation Panel Answer Date Recorded In a typical week, how many times do you talk on the phone with family, friends, or neighbors? Patient declined 12/11/2024 How often do you get togethe r with friends or relatives? Patient declined 12/11/2024 How often do you attend moravian or taoist serv ices? Patient declined 12/11/2024 Do you belong to any clubs o r organizations such as moravian groups, unions, fraternal or athletic groups, or school groups? Patient declined 12/11/2024 How often do you attend meet ings of the clubs or organizations you belong to? Patient declined 12/11/2024 Are you , , di vorced, , never , or living with a partner? Patient declined 12/11/2024 AUDIT-C Answer Date Recorded Q1: How often do you have a drink containing alcohol? Never 12/11/2024 Q2: How many drinks containi ng alcohol do you have on a typical day when you are drinking? Patient does not drink Q3: How often do you have si x or more drinks on one occasion? Never 12/11/2024 Overall Financial Resource Strain (CARDIA) Answe r Date Recorded How hard is it for you to pa y for the very basics like food, housing, medical care, and heating? Not hard at all 12/11/2024 [facility] - Occupational Stress Questionnaire Answer Date Recorded Do you feel stress - tense, restless, nervous, or anxious, or unable to sleep at night because your mind is troubled all the time - these days? Only a little 12/11/2024 Exercise Vital Sign Answer Date Recorde d On average, how many days pe r week do you engage in moderate to strenuous exercise (like a brisk walk)? 0 days 12/11/2024 On average, how many minutes do you engage in exercise at this level? 0 min 12/11/2024 Hunger Vital Sign Answer Date Recorded Within the past 12 months, y ou worried that your food would run out before you got the money to buy more. Never true 12/12/19 25 Within the past 12 months, t he food you bought just didn't last and you didn't have money to get more. Never true 12/11/2024 PRAPARE - Transportation Answer Date Re corded In the past 12 months, has l ack of transportation kept you from medical appointments or from getting medications? No 11/2024 In the past 12 months, has l ack of transportation kept you from meetings, work, or from getting things needed for daily living? No 12/11/2024 Housing Stability Vital Sign Answer Yusuf e Recorded In the last 12 months, was t here a time when you were not able to pay the mortgage or rent on time? No 12/11/2024 In the past 12 months, how m any times have you moved where you were living? 0 12/11/2024 At any time in the past 12 m [facility], were you homeless or living in a [place] facility (including now)? No 12/11/2024 [facility] Utilities Answer Date Recorded In the past 12 months has [employer] electric, gas, oil, or water company threatened to shut off services in your home? No 12/11/2024 Sexually Active Control Partners Comments Not Currently Comments No Sex and Gender Information Value Date Recorded Sex Assigned at Not on file Legal Sex Female 2:33 PM CDT Gender Identity Not on file Sexual Orientation Not on file Last Filed Vital Signs Vital Sign Reading Time Taken Comments Blood Pressure 113/64 12/14/2024 7:00 AM CDT Pulse 56 12/14/2024 7:00 AM CDT Temperature 36.2 C (97.2 F) 12/14/2024 7:00 AM CDT Respiratory Rate 18 12/14/2024 7:00 AM CDT Oxygen Saturation 96% 12/14/2024 7:00 AM CDT Inhaled Oxygen Concentration - - Weight 68.9 kg (152 lb) 12/11/2024 1:54 PM CDT Height 152.4 cm (5') 12/11/2024 1:54 PM CDT Body Mass Index 29.69 12/11/2024 1:54 PM CDT Plan of Treatment Not on file Procedures Procedure Name Priority Date/Time Associated Diagnosis Comments POCT GLUCOSE Routine 12/14/2024 11:10 AM CDT POCT GLUCOSE Routine 12/14/2024 6:23 AM CDT POCT GLUCOSE Routine 12/13/2024 8:27 PM CDT POCT GLUCOSE Routine 12/13/2024 4:15 PM CDT POCT GLUCOSE Routine 12/13/2024 11:45 AM CDT POCT GLUCOSE Routine 12/13/2024 6:29 AM CDT POCT GLUCOSE Routine 12/12/2024 9:16 PM CDT POCT GLUCOSE Routine 12/12/2024 4:41 PM CDT POCT GLUCOSE Routine 12/12/2024 11:40 AM CDT POCT GLUCOSE Routine 12/12/2024 6:14 AM CDT POCT GLUCOSE Routine 12/11/2024 7:46 PM CDT POCT GLUCOSE Routine 12/11/2024 4:37 PM CDT OT EVALUATE AND TREAT STAT 12/11/2024 1:39 PM CDT POCT GLUCOSE Routine 12/11/2024 11:11 AM CDT CBC WITH AUTO DIFFERENTIAL Timed 12/11/2024 7:32 AM CDT BASIC METABOLIC PANEL W/ CALCIUM TOTAL Timed 12/11/2024 7:32 AM CDT COMPLETE BLOOD COUNT (CBC) WITH DIFF Timed 12/11/2024 7:32 AM CDT MAGNESIUM (MG) Timed 12/11/2024 7:32 AM CDT POCT GLUCOSE Routine 12/11/2024 5:55 AM CDT POCT GLUCOSE Routine 12/10/2024 8:59 PM CDT POCT GLUCOSE Routine 12/10/2024 4:53 PM CDT POCT GLUCOSE Routine 12/10/2024 11:28 AM CDT POCT GLUCOSE Routine 12/10/2024 11:26 AM CDT POCT GLUCOSE Routine 12/10/2024 7:31 AM CDT LAVENDER TOP TUBE Routine 12/10/2024 7:1 3 AM CDT EXTRA TUBES Routine 12/10/2024 7:13 AM CDT BASIC METABOLIC PANEL W/ CALCIUM TOTAL Timed 12/10/2024 7:04 AM CDT POCT GLUCOSE Routine 12/10/2024 6:13 AM CDT POCT GLUCOSE STAT 12/09/2024 10:20 PM CDT URINALYSIS REFLEX IF INDICATED BY ABNORMAL RESULTS STAT 12/09/2024 7:51 PM CDT UR DRUG SCREEN W/O CONFIRMATION STAT 12/09/2024 7:51 PM CDT CULTURE, URINE STAT 12/09/2024 7:51 PM CDT POCT GLUCOSE STAT 12/09/2024 7:14 PM CDT EKG 12 LEAD STAT 12/09/2024 5:59 PM CDT SARS-COV-2 BY MOLECULAR STAT 12/09/2024 5:43 PM CDT CBC WITH AUTO DIFFERENTIAL STAT 12/09/2024 5:25 PM CDT COMPLETE BLOOD COUNT (CBC) WITH DIFF STAT 12/09/2024 5:25 PM CDT SALICYLATE LEVEL STAT 12/09/2024 5:24 PM CDT ACETAMINOPHEN (TYLENOL) STAT 12/09/2024 5:24 PM CDT THYROID STIMULATING HORMONE (TSH) STAT 12/09/2024 5:24 PM CDT MAGNESIUM (MG) STAT 12/09/2024 5:24 PM CDT ETHYL ALCOHOL (ETHANOL) STAT 12/09/2024 5:24 PM CDT CMP (COMPREHENSIVE METABOLIC PANEL) STAT 12/09/2024 5:24 PM CDT HEMOGLOBIN A1C W/ ESTIMATED GLUCOSE STAT 12/09/2024 5:19 PM CDT EKG SCAN 12/09/2024 12:00 AM CDT from Last 3 Months Results * (ABNORMAL) POCT Glucose (12/14/2024 11:10 AM CDT) Only the most recent of22 resultswithin the time period is included. Pathologist [facility] GLUCOSE,BEDSID E POCT 274(H) 70 - 99 mg/dL 12/14/2024 11:11 AM CDT [facility] Blood 12/14/2024 11:1 0 AM CDT 12/14/2024 11:11 AM CDT us None Provider POINT OF CARE TESTING Final Resu lt [facility] [address] [place] [address], [place] [phone] * (ABNORMAL) CBC with Auto Differential (12/11/2024 7:32 AM CDT) Only the most recent of2 resultswithin the time period is included. WBC 5.40 4.00 - 12.00 10(3)/mcL 12/11/2024 8:30 AM CDT [facility] RBC 4.63 3.80 - 5.30 10(6)/mcL 12/11/2024 8:30 AM CDT [facility] HEMOGLOBIN (HGB) 13.2 12.0 - 15.8 g/dL 12/11/2024 8:30 AM CDT [facility] HEMATOCRIT (HCT) 40.6 36.0 - 47.0 % 12/11/2024 8:30 AM CDT [facility] MCV 87.6 82.0 - 96.0 fL 12/11/2024 8:30 AM CDT [facility] MCH 28.5 26.0 - 34.0 pg 12/11/2024 8:30 AM CDT [facility] MCHC 32.6 31.0 - 36.0 g/dL 12/11/2024 8:30 AM CDT [facility] PLATELET COUNT 189 140 - 440 10(3)/mcL 12/11/2024 8:30 AM CDT [facility] RDW 16.6(H) 11.8 - 15.5 % 12/11/2024 8:30 AM CDT [facility] MPV 9.8 9.7 - 12.4 fL 12/11/2024 8:30 AM CDT [facility] NEUTROPHILS 59.0 47.0 - 73.0 % 12/11/2024 8:30 AM CDT [facility] LYMPHOCYTES 25.2 18.0 - 42.0 % 12/11/2024 8:30 AM CDT [facility] MONOCYTES 10.0 4.0 - 12.0 % 12/11/2024 8:30 AM CDT [facility] EOSINOPHILS 4.8 0.0 - 5.0 % 12/11/2024 8:30 AM CDT [facility] BASOPHILS 1.0 0.0 - 1.0 % 12/11/2024 8:30 AM CDT [facility] ABSOLUTE NEUTROPHILS 3.20 1.60 - 7.70 10(3)/mcL 12/11/2024 8:30 AM CDT [facility] ABSOLUTE LYMPHOCYTES 1.40 1.30 - 3.20 10(3)/mcL 12/11/2024 8:30 AM CDT [facility] ABSOLUTE MONOCYTES 0.50 0.20 - 1.00 10(3)/mcL 12/11/2024 8:30 AM CDT [facility] ABSOLUTE EOSINOPHIL 0.30 0.00 - 0.40 10(3)/mcL 12/11/2024 8:30 AM CDT [facility] ABSOLUTE BASOPHILS 0.10 0.00 - 0.10 10(3)/mcL 12/11/2024 8:30 AM CDT [facility] NRBC PER 100 WBC 0 12/12/19 25 8:30 AM CDT [facility] Blood Venipuncture / Unknown 12/11/2024 7:32 AM CDT 12/11/2024 8:09 AM CDT Yenni Ortiz MD HEMATOLOGY ORDERABLES Sommer l Result Performing Organization Address City/[facility]/ZIP Co de Phone Number [facility] [address] [place] [address], [place] [phone] * Magnesium (Mg) (12/11/2024 7:32 AM CDT) Only the most recent of2 resultswithin the time period is included. MAGNESIUM 1.6 1.6 - 2.6 mg/dL 12/11/2024 8:35 AM CDT [facility] Blood Venipuncture / Unknown 12/11/2024 7:32 AM CDT 12/11/2024 8:08 AM CDT Yenni Ortiz MD CHEMISTRY ORDERABLES Final Result Performing Organization Address City/[facility] Co de Phone Number [facility] [address] [place] [address], [place] [phone] * (ABNORMAL) Basic Metabolic Panel w/ Calcium Total (12/11/2024 7:32 AM CDT) Only the most recent of2 resultswithin the time period is included. SODIUM 138 136 - 145 mmol/L 12/11/2024 8:35 AM CDT [facility] POTASSIUM 4.2 3.5 - 5.1 mmol/L 12/11/2024 8:35 AM CDT [facility] CHLORIDE 103 98 - 107 mmol/L 12/11/2024 8:35 AM CDT [facility] CO2, VENOUS 25 22 - 30 mmol/L 12/11/2024 8:35 AM CDT [facility] ANION GAP 10.0 <18.0 mmol/L 12/11/2024 8:35 AM CDT [facility] GLUCOSE 179(H) 70 - 99 mg/dL 12/11/2024 8:35 AM CDT [facility] BUN 21(H) 10 - 20 mg/dL 12/11/2024 8:35 AM CDT [facility] CREATININE, BLOOD 0.86 0.60 - 1.00 mg/dL 12/11/2024 8:35 AM CDT [facility] BUN/CREATININE RATIO 24(H) 12 - 20 ratio 12/11/2024 8:35 AM CDT [facility] CALCIUM 9.7 8.7 - 10.5 mg/dL 12/11/2024 8:35 AM CDT [facility] GFR, ESTIMATED >60 >=60 12/11/2024 8:35 AM T [facility] Comment: Creatinine Clearance is the preferred criteria for selecting drug dose adjustments in renally impaired patients. The GFR is provided as additional pertinent clinical information. GFR is reported in mL/min/1.73 sq m. Calculation based on the 2020 Chronic Kidney Disease Epidemiology Collaboration (CKD-EPI) equation refit without adjustment for race. GFR, EST. >60 >=60 8:35 AM [facility] Comment: Creatinine Clearance is the preferred criteria for selecting drug dose adjustments in renally impaired patients. The GFR is provided as additional pertinent clinical information. GFR is reported in mL/min/1.73 sq m. Calculation based on the 2009 Chronic Kidney Disease Epidemiology Collaboration (CKD-EPI). GFR, EST. NONAFRICAN >60 >=60 12/11/2024 8:35 AM [facility] Comment: Creatinine Clearance is the preferred criteria for selecting drug dose adjustments in renally impaired patients. The GFR is provided as additional pertinent clinical information. GFR is reported in mL/min/1.73 sq m. Calculation based on the 2009 Chronic Kidney Disease Epidemiology Collaboration (CKD-EPI). Blood Venipuncture / Unknown 12/11/2024 7:32 AM CDT 12/11/2024 8:08 AM CDT Yenni Ortiz MD CHEMISTRY ORDERABLES Final Result Performing Organization Address City/[facility]/ZIP Co de Phone Number [facility] [address] [place] [address], [place] [phone] * Lavender Top Tube (12/10/2024 7:13 AM CDT) Blood No Phlebotomy Charged / Unknown 12/10/2024 7:13 AM CDT 12/10/2024 7:13 AM CDT Yenni Ortiz MD HEMATOLOGY ORDERABLES Sommer l Result Performing Organization Address [facility] Co de Phone Number [facility] [address] [place] [address], * (ABNORMAL) Urinalysis with Reflex if Indicated (12/09/2024 7:51 PM CDT) SPECIFIC GRAVITY 1.030 1.003 - 1.030 12/09/2024 8:06 PM CDT [facility] URINE PH 5.5 5.0 - 9.0 12/09/2024 8:06 PM CDT [facility] WBC ESTERASE 1+(A) Negative 12/09/2024 8:06 PM CDT [facility] NITRITE Negative Negative 12/09/2024 8:06 PM CDT [facility] PROTEIN, RANDOM URINE Negative Negative 12/09/2024 8:06 PM CDT [facility] URINE GLUCOSE, QUAL 3+(A) Negative 12/09/2024 8:06 PM CDT [facility] URINE KETONES Negative Negative 12/09/2024 8:06 PM CDT [facility] UROBILINOGEN 0.2 0.2 , 1.0 mg/dL 12/09/2024 8:06 PM CDT [facility] URINE BLOOD Trace(A) Negative barbara/ul 12/09/2024 8:06 PM CDT [facility] URINALYSIS COLOR Yellow 12/10/19 25 8:06 PM CDT [facility] URINALYSIS CLARITY Clear 12/09/2024 8:06 PM CDT [facility] WBC (Urine) 6-10(A) Negative, 0-5 /hpf 12/09/2024 8:06 PM CDT [facility] URINE RBC'S Negative Negative, 0-2 /hpf 12/09/2024 8:06 PM CDT [facility] EPITHELIAL CELLS Small amount /lpf 2024 8:06 PM CDT [facility] BACTERIA, URINE Few(A) Negative /hpf 12/09/2024 8:06 PM CDT [facility] Urine URINE SPECIMEN / Unknown Non-Phlebotomy Collection / Unknown 12/09/2024 7:51 PM CDT 12/09/2024 7:53 PM CDT us Jayden Ojeda MD URINE ORDERABLES Final Result [facility] [address] [place] [address], [place] [phone] * Urine Drug Screen (12/09/2024 7:51 PM CDT) UR AMPHETAMINE NON DETECTED NON DETECTED 12/09/2024 8:06 PM CDT [facility] Comment: FOR MEDICAL USE ONLY. CUTOFF CONCENTRATION FOR DETECTED RESULT: AMPHETAMINE: 500 NG/ML UR BARBITURATE NON DETECTED NON DETECTED 12/09/2024 8:06 PM CDT [facility] Comment: FOR MEDICAL USE ONLY. CUTOFF CONCENTRATION FOR DETECTED RESULT: BARBITUATES: 200 NG/ML UR BENZODIAZEPINES NON DETECTED NON DETECTED 12/09/2024 8:06 PM CDT [facility] Comment: FOR MEDICAL USE ONLY. CUTOFF CONCENTRATION FOR DETECTED RESULT: BENZODIAZAPINE: 200 NG/ML UR COCAINE METABOLITE NON DETECTED NON DETECTED 12/09/2024 8:06 PM CDT [facility] Comment: FOR MEDICAL USE ONLY. CUTOFF CONCENTRATION FOR DETECTED RESULT: COCAINE: 150 NG/ML UR OPIATES NON DETECTED NON DETECTED 12/09/2024 8:06 PM CDT [facility] Comment: FOR MEDICAL USE ONLY. CUTOFF CONCENTRATION FOR DETECTED RESULT: OPIATES: 300 NG/ML UR PHENCYCLIDINE NON DETECTED NON DETECTED 12/09/2024 8:06 PM CDT [facility] Comment: FOR MEDICAL USE ONLY. CUTOFF CONCENTRATION FOR DETECTED RESULT: PCP: 25 NG/ML UR CANNABINOID NON DETECTED NON DETECTED 12/09/2024 8:06 PM CDT [facility] Comment: FOR MEDICAL USE ONLY. CUTOFF CONCENTRATION FOR DETECTED RESULT: THC (MARIJUANA): 50 NG/ML Urine Non-Phlebotomy Collection / Unknown 12/09/2024 7:51 PM CDT 12/09/2024 7:53 PM CDT us Jayden Ojeda MD URINE ORDERABLES Final Result [facility] [address] [place] [address], [place] [phone] * Culture, Urine (12/09/2024 7:51 PM CDT) CULTURE RESULTS ENTEROCOCCUS FAECALIS 12/12/2024 3:51 PM CDT [facility] CULTURE RESULTS STAPHYLOCOCCUS EPIDERMIDIS 12/12/2024 3:51 PM CDT [facility] CULTURE RESULTS Also mixed growth of distal urethral contaminants 12/12/2024 3:51 PM CDT [facility] Urine URINE SPECIMEN / Unknown Non-Phlebotomy Collection / Unknown 12/09/2024 7:51 PM CDT 12/09/2024 7:53 PM CDT Narrative [facility] - 12/12/2024 3:51 PM CDT Susceptibility not performed on enterococcus species. Due to high achievable concentrations in urine, Ampicillin is the drug of choice for treating infections limited to the lower urinary tract (regardless of Vancomycin susceptibility). For allergic patients, Nitrofurantoin or a quinolone may be substituted. Organism Antibiotic Method Susceptibility Staphylococcus epidermidis Gentamicin [facility] IIB <=0.5 mcg/ml: Susceptible Staphylococcus epidermidis Linezolid [facility] IIB 1 mcg/ml: Susceptible Staphylococcus epidermidis Nitrofurantoin [facility] IIB <=16 mcg/ml: Susceptible Staphylococcus epidermidis Oxacillin [facility] IIB >=4 mcg/ml: Resistant Staphylococcus epidermidis Tetracycline [facility] IIB >=16 mcg/ml: Resistant Staphylococcus epidermidis Trimeth/Sulfamethoxazol e [facility] IIB <=10 mcg/ml: Susceptible Staphylococcus epidermidis Vancomycin [facility] IIB 2 mcg/ml: Susceptible us Jayden Ojeda MD MICROBIOLOGY - GENERAL ORDERABLES Final Result Performing Organization Address [facility] Co de Phone Number [facility] [address] [phone], * EKG 12 LEAD (12/09/2024 5:59 PM CDT) Ventricular Rate 60 BPM EXTERNAL EKG Atrial Rate 60 BPM EXTERNAL EKG P-R Interval 160 ms EXTERNAL EKG QRS Duration 152 ms EXTERNAL EKG Q-T Duration 462 ms EXTERNAL EKG QTC CALCULATION 462 ms EXTERNAL EKG P [place] 32 degrees EXTERNAL EKG R [place] 55 degrees EXTERNAL EKG T [place] -32 degrees EXTERNAL EKG 12/09/2024 5:59 PM CDT Impressions EXTERNAL EKG - 12/11/2024 12:08 PM CDT Sinus rhythm with Premature supraventricular complexes Right bundle branch block Inferior infarct , age undetermined Anterolateral infarct , age undetermined Abnormal ECG No previous ECGs available Confirmed by Rod Perez ([id number]) on 12/11/2024 12:08:48 PM Narrative Procedure Note Rod Perez MD - 12/11/2024 IMPRESSION: Sinus rhythm with Premature supraventricular complexes Right bundle branch block Inferior infarct , age undetermined Anterolateral infarct , age undetermined Abnormal ECG No previous ECGs available Confirmed by Rod Perez ([id number]) on 12/11/2024 12:08:48 PM us Jayden Ojeda MD IMG ECG ORDERABLES Fin al Result Performing Organization Address City/[facility]/ZIP Co de Phone Number EXTERNAL EKG * SARS-COV-2 BY MOLECULAR (12/09/2024 5:43 PM CDT) Pathologist [facility] SARSCOV2 NOT DETECTED (Referenc e Range for this test is Not Detected) [facility] FINK ID NOW 12/09/2024 6:00 PM CDT [facility] Comment:This test was perfor med by a MOLECULAR, NON-PCR method Other NASOPHARYNGEAL STRUCTURE / Unknown Non-Phlebotomy Collection / Unknown 12/09/2024 5:43 PM CDT 12/09/2024 5:46 PM CDT Narrative [facility] - 12/09/2024 6:00 PM CDT This test has been authorized by the FDA under an Emergency Use Authorization (EUA) only. Negative results should be treated as presumptive and, if inconsistent with clinical signs and symptoms or necessary for patient management, the patient should be tested with an alternative molecular assay. Negative results do not preclude SARS-CoV-2 infection or any other respiratory pathogen. Additional information for Clinicians can be found at: https://www.fda.gov/media/377405/download Additional information for Patients can be found at: https://www.fda.gov/media/447720/download Jayden Ojeda MD MICROBIOLOGY - GENERAL ORDERABLES Final Result [facility] [address] [place] [address], [place] [phone] * (ABNORMAL) Acetaminophen Level (12/09/2024 5:24 PM CDT) Pathologist [facility] ACETAMINOPHEN <3(L) 10 - 30 mcg/mL 12/09/2024 5:45 PM CDT [facility] Blood Venipuncture / Unknown 12/09/2024 5:24 PM CDT 12/09/2024 5:26 PM CDT Narrative [facility] - 12/09/2024 5:45 PM CDT Treatment for acetaminophen toxicity with N-acetylcysteine (NAC) may falsely depress post treatment acetaminophen results. Levels greater than 200 Ug/mL at 4 hours or 50 Ug/mL at 12 hours post ingestion are associated with possibility of hepatic toxicity if an antidote is not administered. Jayden Ojeda MD CHEMISTRY ORDERABLES F inal Result Performing Organization Address City/[facility]/ZIP Co de Phone Number [facility] [address] [place] [address], [place] [phone] * Thyroid Stimulating Hormone (TSH) (12/09/2024 5:24 PM CDT) TSH 0.964 0.300 - 5.000 mIU/L 12/09/2024 6:06 PM CDT [facility] Blood Venipuncture / Unknown 12/09/2024 5:24 PM CDT 12/09/2024 5:26 PM CDT Jayden Ojeda MD CHEMISTRY ORDERABLES F inal Result Performing Organization Address [facility] Co de Phone Number [facility] [address] [place] [address], [place] [phone] * (ABNORMAL) Salicylate Level (12/09/2024 5:24 PM CDT) SALICYLATE <5.0(L) 15.0 - 30.0 mg/dL 12/09/2024 5:45 PM CDT [facility] Blood Venipuncture / Unknown 12/09/2024 5:24 PM CDT 12/09/2024 5:26 PM CDT Jayden Ojeda MD CHEMISTRY ORDERABLES F inal Result Performing Organization Address City/[facility]/ZIP Co de Phone Number [facility] [address] [place] [address], [place] [phone] * ETOH Level (12/09/2024 5:24 PM CDT) ETHANOL <10 <10 mg/dL 12/09/2024 5:4 5 PM CDT [facility] Blood Venipuncture / Unknown 12/09/2024 5:24 PM CDT 12/09/2024 5:26 PM CDT us Jayden Ojeda MD CHEMISTRY ORDERABLES F inal Result [facility] [address] [place] [address], [place] [phone] * (ABNORMAL) CMP (Comprehensive Metabolic Panel) (12/09/2024 5:24 PM CDT) SODIUM 136 136 - 145 mmol/L 12/09/2024 5:48 PM CDT [facility] POTASSIUM 4.6 3.5 - 5.1 mmol/L 12/09/2024 5:48 PM CDT [facility] CHLORIDE 104 98 - 107 mmol/L 12/09/2024 5:48 PM CDT [facility] CO2, VENOUS 22 22 - 30 mmol/L 12/09/2024 5:48 PM CDT [facility] ANION GAP 10.0 <18.0 mmol/L 12/09/2024 5:48 PM CDT [facility] GLUCOSE 507(HH) 70 - 99 mg/dL 12/09/2024 5:48 PM CDT [facility] BUN 18 10 - 20 mg/dL 12/09/2024 5:48 PM CDT [facility] CREATININE, BLOOD 0.89 0.60 - 1.00 mg/dL 12/09/2024 5:48 PM CDT [facility] BUN/CREATININE RATIO 20 12 - 20 ratio 12/09/2024 5:48 PM CDT [facility] TOTAL PROTEIN 7.1 6.0 - 8.0 g/dL 12/09/2024 5:48 PM CDT [facility] ALBUMIN 4.0 3.5 - 5.0 g/dL 12/09/2024 5:48 PM CDT [facility] A/G RATIO 1.3 1.0 - 2.2 12/09/2024 5:48 PM CDT [facility] CALCIUM 9.4 8.7 - 10.5 mg/dL 12/09/2024 5:48 PM CDT [facility] T BILI 0.4 0.2 - 1.2 mg/dL 12/09/2024 5:48 PM CDT [facility] SGOT (AST) 15 <43 U/L 12/09/2024 5:48 PM CDT [facility] SGPT (ALT) 10 <56 U/L 12/09/2024 5:48 PM CDT [facility] ALKALINE PHOSPHATASE 65 40 - 150 U/L 12/09/2024 5:48 PM CDT [facility] GFR, ESTIMATED >60 >=60 12/09/2024 5:48 PM CDT [facility] Comment: Creatinine Clearance is the preferred criteria for selecting drug dose adjustments in renally impaired patients. The GFR is provided as additional pertinent clinical information. GFR is reported in mL/min/1.73 sq m. Calculation based on the 2020 Chronic Kidney Disease Epidemiology Collaboration (CKD-EPI) equation refit without adjustment for race. GFR, EST. >60 >=60 025 5:48 PM CDT [facility] Comment: Creatinine Clearance is the preferred criteria for selecting drug dose adjustments in renally impaired patients. The GFR is provided as additional pertinent clinical information. GFR is reported in mL/min/1.73 sq m. Calculation based on the 2009 Chronic Kidney Disease Epidemiology Collaboration (CKD-EPI). GFR, EST. NONAFRICAN >60 >=60 12/09/2024 5:48 PM CDT [facility] Comment: Creatinine Clearance is the preferred criteria for selecting drug dose adjustments in renally impaired patients. The GFR is provided as additional pertinent clinical information. GFR is reported in mL/min/1.73 sq m. Calculation based on the 2009 Chronic Kidney Disease Epidemiology Collaboration (CKD-EPI). Blood Venipuncture / Unknown 12/09/2024 5:24 PM CDT 12/09/2024 5:26 PM CDT us Jayden Ojeda MD CHEMISTRY ORDERABLES F inal Result [facility] [address] [place] [address], * (ABNORMAL) Hemoglobin A1C (if indicated) (12/09/2024 5:19 PM CDT) HGB-A1C 11.9(H) 4.0 - 6.0 % 12/10/2024 3:32 PM CDT [facility] Est Average Glucose 294.8 mg/dL 12/10/2024 3:32 PM CDT [facility] Blood Venipuncture / Unknown 12/09/2024 5:19 PM CDT 12/10/2024 3:27 AM CDT Narrative [facility] - 12/10/2024 3:32 PM CDT Specimens containing greater than 5% of Hemoglobin F may result in lower than expected % HbA1c results. 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 PRE-ARREST: Use entire range of life support measures to stabilize the patient. * Full Code Date Activated Date Inactivated Comments 12/11/2024 1:34 PM 12/11/2024 1:39 PM CPR-Full Treat ment: FULL ARREST: Attempt Resuscitation/CPR wit intubation and mechanical ventilation. PRE-ARREST: Use entire range of life support measures to stabilize the patient. * Full Code Date Activated Date Inactivated Comments 12/10/2024 5:59 AM 12/11/2024 1:34 PM CPR-Full Treat ment: FULL ARREST: Attempt Resuscitation/CPR wit intubation and mechanical ventilation. PRE-ARREST: Use entire range of life support measures to stabilize the patient. 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
--- OUTSIDE RECORDS SUMMARY | 2025-02-08 17:24 | XMS_ITS | Clinical Summary ---
Author Organization [facility] Address [address] [place] [address] Care Team Providers Care Tray Line Worker Name Role Phone Franco Randolph MD Unavailable [phone] Ernestina Luevano MD Primary Care Provider + Cirilo Buenrostro MD Unavailable [phone] Source Comments [facility],non-owned Affiliates and Associated Physician Practices is amultiple site organization consisting of ambulatory clinics and hospital sitesin [place], [place], [place] and [place]. This disclosure is being madepursuant to the Care Everywhere program and may not contain all information available regarding this patient. Last updated 17.[facility] Allergies No known active allergies Medications * [...] daily 07/04/19 21 Active Continuous Blood Gluc Claims Coordinator (ConjecturStyle Haritha Friend[place]) JACK Inject 1 device subcutaneously continuous 05/27/19 [...] Overview: Added automatically from request for surgery [id number] Primary osteoarthritis of both knees 08/27/2017 DM type 2 with diabetic peripheral neuropathy Overview (08/27/2017): Last Assessment & Plan: Foot care discussed. Coronary artery disease invo lving [place] coronary artery of [place] heart without angina pectoris 01/28/2017 Hx of [...] on file Legal Sex Female 6:14 AM RESIDENTIAL COLLECTIONS Gender Identity Not on file Sexual Orientation [...] SCREENING 01/12/2019 DIABETES-FOOT EXAM WITH MONOFILAMENT 01/12/2019 DIABETES-HGB A1C 01/12/2019 Respiratory Syncytial Virus (RSV) Vaccine Pt: or over 60 yrs (1 - 1-dose 75+ series) 2019 DIABETES-SERUM CREATININE 08/19/20232022, 07/24/2022 DEPRESSION SCREENING 04/05/2024 DIABETES - URINE PROTEIN SCREENING 04/05/2024 COVID-19 VACCINE (2023-2 5 season) 2024 INFLUENZA VACCINE (#1) 2024 HEPATITIS [...] A/C/Y/W VACCINE Aged Out No longer eligible b ased on patient's age to complete this topic Medical Devices Implanted Type Area Technology Coach Device Identifier Shelf Expiration Date Model / Serial / Lot Cmnt Bone Djo Srg Cblt 40gm Hvisc Strl Implanted:Qty: 1 on 08/17/2022 by Franco Randolph MD at [facility] Left: Knee [employer] 11/27/2023 600-15-000 / / [id number] Cmpnt Ptlr Std 28mm 3 Pg Kn Ser A Implanted:Qty: 1 on 08/17/2022 by Franco Randolph MD at [facility] Left: Knee [employer] 05/07/2027 [id number] / / [id number] Tray Tib 75mm Kn Cocr I Beam Implanted:Qty: 1 on 08/17/2022 by Franco Randolph MD at [facility] Left: Knee [employer] 08/24/2031 [id number] / / [id number] Cmpnt Fem Kn Lt Cr Cmnt Prm Vngrd Intlk 67.5 Mm Implanted:Qty: 1 on 08/17/2022 by Franco Randolph MD at [facility] Left: Knee [employer] 06/02/2032 [id number] / / [id number] Brng [id number] Vngrd Arcm Kn Ant Stab Implanted:Qty: 1 on 08/17/2022 by Franco Randolph MD at [facility] Left: Knee [employer] 05/22/2027 [id number] / / [id number] Procedures Procedure Name Priority Date/Time Associated Diagnosis Comments BASIC METABOLIC PANEL (CALCIUM TOTAL) AM Draw 08/18/2022 10:10 AM CDT 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, unspecified laterality from Last 3 Months or Most Recently Relevant to Health Maintenance Results * (ABNORMAL) BASIC METABOLIC PANEL (CALCIUM TOTAL) (08/18/2022 10:10 AM CDT) Pathologist [facility] Glucose 288(H) 70 - 105 mg/dL 08/18/2022 10:45 AM CDT [facility] Sodium 138 136 - 145 mmol/L 08/18/2022 10:45 AM CDT [facility] Potassium 4.6 3.5 - 5.1 mmol/L 08/18/2022 10:45 AM CDT [facility] Chloride 106 98 - 107 mmol/L 08/18/2022 10:45 AM CDT [facility] CO2 23 23 - 31 mmol/L 08/18/2022 10:45 AM CDT [facility] Calcium 9.6 8.4 - 10.4 mg/dL 08/18/2022 10:45 AM CDT [facility] Anion Gap 9 8 - 18 mmol/L 08/18/2022 10:45 AM CDT [facility] BUN 36(H) 9.8 - 20.1 mg/dL 08/18/2022 10:45 AM CDT [facility] Creatinine 1.00 0.57 - 1.11 mg/dL 08/18/2022 10:45 AM CDT [facility] eGFR by CKD-EPI 58(L) >=90 mL/min/1.7 3 m2 08/18/2022 10:45 AM CDT [facility] Blood BLOOD SPECIMEN / Unknown Venipuncture / Unknown 08/18/2022 10:10 AM CDT 08/18/2022 10:15 AM CDT us Sunita Bal MD LAB - CHEMISTRY ORDERABLES Final Result [facility] [address] [place] [address] from Last 3 Months or Most Recently Relevant to [place] [address] [place] [address] MEDICARE [facility] Address: [address] [address] [place] [address] [facility] Address: [address] [address] SELF PAY NO INSURANCE Member Subscriber Plan / Payer (Ef fective for All Dates) Name:Ana M Childress Tia Member ID:Not on file Relation to Subscriber:Not on file Name:ANA M CHILDRESS Subscriber ID:Not on file (Home) Address: [address] [place] [address] [place] [address] Payer ID:Not on file Group ID:Not on file Type:Self Pay Address: [place], [place] [address] Advance Directives * Full Code (Latest Code Status on File) Date Activated Date Inactivated Comments 08/17/2022 1:40 PM 08/18/2022 4:20 PM Care Teams Tray Line Worker Relationship Specialty Start Date End Date Ernestina Luevano MD [address] [place] [address] PCP - General Family Medicine 06/03/22 [place] [address] [address] [place] [address] Orthopedic Surgery 08/27/17 Cirilo Buenrostro MD [address] [place] [address] Therapist Speech Cardiology 08/12/22
[2025-02-08 17:35] LABS: IFOB Positive Control Positive; Immunochemical Fecal Occult Bl Negative (N)
[2025-02-08 18:35] LABS: Anion Gap 13 mmol/L (4-12); Blood Urea Nitrogen 33 mg/dL (7-17); Calcium 10.2 mg/dL (8.4-10.2); Carbon Dioxide 18 mmol/L (22-30); Chloride 109 mmol/L (98-107); Estimated CRCL calculation 39 ml/min; Estimated Glomerular Filt Rate > 60; Glucose 168 mg/dL (65-110); Potassium 3.8 mmol/L (3.4-5.0); Sodium 140 mmol/L (137-145)
[2025-02-08 22:27] LABS: Anion Gap 10 mmol/L (4-12); Blood Urea Nitrogen 28 mg/dL (7-17); Calcium 9.8 mg/dL (8.4-10.2); Carbon Dioxide 18 mmol/L (22-30); Chloride 111 mmol/L (98-107); Estimated CRCL calculation 43 ml/min; Estimated Glomerular Filt Rate > 60; Glucose 234 mg/dL (65-110); Potassium 4.2 mmol/L (3.4-5.0); Sodium 139 mmol/L (137-145)
[2025-02-08] MEDS: INSULIN GLARGINE (*BKC) 100 UNITS/ML 45 UNITS SUB-Q (23:28)
[2025-02-09] VITALS (16 sets, daily range): BP systolic 94–162; BP diastolic 52–120; PULSE 67–99; RESP 13–26; TEMP 36.1–37.3; O2SAT 88–100; BMI 17.8
[2025-02-09 04:10] LABS: Hematocrit 43.7 % (37.0-47.0); Hemoglobin 14.6 g/dL (12.0-15.0); Mean Corpuscular HGB Conc 33.4 g/dl (32-36); Mean Corpuscular Hemoglobin 30.2 pg (26-34); Mean Corpuscular Volume 90.3 fl (80-100); Platelet Count Result 176 k/mm3 (150-375); Red Blood Count 4.84 M/mm3 (4.2-5.4); White Blood Count 8.7 K/mm3 (4.5-10.0)
[2025-02-09 04:31] LABS: Alanine Aminotransferase 25 U/L (6-35); Albumin Level 3.6 g/dL (3.5-5.1); Alkaline Phosphatase 64 U/L (38-126); Anion Gap 13 mmol/L (4-12); Aspartate Amino Transferase 19 U/L (14-36); Bilirubin,Total 0.9 mg/dL (0.2-1.3); Blood Urea Nitrogen 27 mg/dL (7-17); Calcium 10.0 mg/dL (8.4-10.2); Carbon Dioxide 16 mmol/L (22-30); Chloride 111 mmol/L (98-107); Estimated CRCL calculation 39 ml/min; Estimated Glomerular Filt Rate > 60; Glucose 273 mg/dL (65-110); Magnesium 1.7 mg/dL (1.6-2.3); Potassium 4.3 mmol/L (3.4-5.0); Sodium 140 mmol/L (137-145); Total Protein 6.4 g/dL (6.3-8.2)
[2025-02-09] MEDS: INSULIN ASPART (*BKC) 100 UNITS/ML SUB-Q ×5 (05:52→20:38)
[2025-02-09] MEDS: LACTATED RINGERS 500 ML IV CONT (08:41)
[2025-02-09] MEDS: ENOXAPARIN 40 MG/0.4 ML SYRINGE SUB-Q (08:41)
--- NOTE | 2025-02-09 09:32 | PCSTNOTE ---
Please refer to the Bedside Swallow Evaluation in the EMR. Please note, silent aspiration cannot be ruled out at bedside. The patient is a 79 year old female admitted with RONALD and a history of dementia (AMS0 orientation x 1. Orders received to complete a BSE and r/o aspiration risk. Family reports at times patient vomits after eating or has an occasional cough response. The patient was positioned upright and presented the following consistencies: 5cc/tsp thin, small controlled cup trials thin, puree/applesauce, and solid cracker. Oral Stage: The patient has sign clamping down of her teeth to limit oral presentation, noted tongue pumping and delayed oral transit across consistencies. The patient allowed 2 tsp thin, 1 small cup trial, 3 tsp applesauce before expectorating any bolus presented and refusing trials and crying out. Pharyngeal Stage: The patient swallow appeared fairly timely across consistencies, without any noted changes in vocal quality, coughing and /or choking. Suspect dysphagia is related to behaviors and patient's awareness to swallow at times the material she has taken. Recommend 1. Puree Diet / Level 4 2. Mildly thick / Level 2 (To increase patient's oral awareness of bolus) 3. Upright with meals 4. One on on Supervision 5. Small bites and drinks 6. ST services to follow for diet advancement as tolerated if patient improves.
[2025-02-09] MEDS: PIPERACILLIN/TAZOBACTAM SOD 2.25 GM in SODIUM CHLORIDE 0.9% IV 50 ML 100 ML IVPB ×3 (11:59→23:30)
--- NOTE | 2025-02-09 13:25 | P.PNINT_ITS ---
Progress Note: A&P Assessment and Plan (1) DKA (diabetic ketoacidosis): Code(s): E11.10 - Type 2 diabetes mellitus with ketoacidosis without coma Status: Acute Assessment and Plan: The patient's last chest DKA. Pt was given IVF bolus and has been started on started on infusion Insulin infusion started and Q1H glucose monitoring is being done Serial labs ordered Replace electrolytes as needed Consult dietitian and elementary educator -patient was transitioned to long-acting insulin and sliding scale insulin overnight, -Hemoglobin A1c is 14.0 this admission (2) CAD (coronary artery disease): Code(s): I25.10 - Atherosclerotic heart disease of [place] coronary artery without angina pectoris Status: Acute Assessment and Plan: Will resume aspirin -hold home enalapril for now as blood pressures are stable (3) PAF (paroxysmal atrial fibrillation): Code(s): I48.0 - Paroxysmal atrial fibrillation Status: Acute Assessment and Plan: Currently in sinus rhythm, rate controlled, continue to monitor (4) RONALD (acute kidney injury): Code(s): N17.9 - Acute kidney failure, unspecified Status: Resolved Assessment and Plan: RONALD likely secondary to DKA and hypovolemia, creatinine on admission was 1.27 Patient received adequate IV fluids Urine electrolytes not prerenal Creatinine has normalized to 0.80 -continue to monitor urine output, renal function and electrolytes (5) Metabolic encephalopathy: Code(s): G93.41 - Metabolic encephalopathy Status: Acute Assessment and Plan: Head CT was negative TSH was neg Since patient is on valproic acid , ammonia levels within normal limits (<9) (6) Abdominal pain: Code(s): R10.9 - Unspecified abdominal pain Status: Inactive Assessment and Plan: Patient unable to provide any meaningful history. Appears tender on abdominal exam. LFTs were unremarkable Will check abdominal CT and lipase level -lipase is normal -CT scan of the abdomen and pelvis showed possible inflammatory or infectious colitis, started on Zosyn (02/09) 02/08: CT scan of the abdomen and pelvis 1. Directed exam as above demonstrating no acute surgical abnormality. Mild strandy changes about the large intestine could be associated with developing inflammatory or infectious colitis. 2. Mild thickening of the urinary bladder wall may be present. 3. Several other chronic findings as above. Plan DVT prophylaxis -Lovenox Stress ulcer prophylaxis: Not indicated as patient is on a diet Nutrition - diabetic diet, speech evaluation was done, patient currently on pureed and thickened liquids Care coordination is involved in this patient's care and evaluating possibility of placement and obtaining regular medications for the patient Code Status - Full Code Total Critical Care Time - 32 minutes Due to a high probability of clinically significant, life threatening det erioration, the patient required my highest level of preparedness to intervene emergently and I personally spent this critical care time directly and personally managing the patient. This critical care time included obtaining a history; examining the patient; pulse oximetry; ordering and review of studies; arranging urgent treatment with development of a management plan; evaluation of patient's response to treatment; frequent reassessment; and discussions with other providers. It was exclusive of separately billable procedures and treating other patients and teaching time. Please see Assessment and Plan section and the rest of the note for further information on patient assessment and treatment This dictation may have been done utilizing a voice recognition system. Attempts have been made to correct errors. However, there may be uncorrected grammatical, spelling, and recognitions errors present. Subjective Date/time seen: 02/09/25 13:25 Interval history: Reason for consult: DKA, acute kidney injury, metabolic encephalopathy 02/09/2025: Patient seen and examined this morning in the ICU, is awake, not able to respond or communicate appropriately. Intermittently answers a few questions. Hemodynamically stable, good urine output, patient was transition to long-acting insulin and sliding scale insulin overnight Review of Systems Review of Systems: ROS unobtainable: Yes unobtainable due to medical condition and unobtainable due to mental status Exam Narrative: General: Old frail female who is awake but confused and appears uncomfortable and continues to moan and groan, Lungs/Chest: Trachea central Clear BS B/L, No crackles or wheezing. Cardiac: RRR. Normal S1 S2. No murmurs Circulation: Pedal pulses are intact and symmetrical. Abdomen: Normal bowel sounds. Obese. Soft. She grimaces on abdominal exam Extremities: No clubbing, cyanosis or edema. Warm : [place] in place Neurologic: Follows commands with both hands and opens her mouth on exam. Moves all 4 extremities PERRL AOx 0 Skin: No Rash Objective Data Vital Signs Vital Signs: Vital Signs - 24 hr 02/08/25 14:00 02/08/25 14:00 02/08/25 15:00 Temperature 97.2 F L 97.2 F L Pulse Rate 82 82 118 H Respiratory Rate 17 17 Blood Pressure 113/52 L 114/49 L Pulse Oximetry 100 100 Oxygen Delivery Oxygen Flow Rate 02/08/25 16:00 02/08/25 16:00 02/08/25 17:00 Temperature 97.8 F 98.2 F Pulse Rate 91 91 87 Respiratory Rate 19 24 H Blood Pressure 138/65 134/61 Pulse Oximetry 100 100 Oxygen Delivery Oxygen Flow Rate 02/08/25 18:00 02/08/25 18:00 02/08/25 19:00 Temperature 98.3 F 98.7 F Pulse Rate 83 90 86 Respiratory Rate 24 H 27 H Blood Pressure 100/42 L 108/55 L Pulse Oximetry 100 96 Oxygen Delivery Oxygen Flow Rate 02/08/25 20:00 02/08/25 20:00 02/08/25 20:00 Temperature 98.6 F Pulse Rate 86 84 82 Respiratory Rate 27 H 23 H Blood Pressure 104/50 L Pulse Oximetry 96 100 Oxygen Delivery Nasal Cannula Oxygen Flow Rate 2 02/08/25 21:00 02/08/25 22:00 02/08/25 22:00 Temperature 98.7 F Pulse Rate 68 68 83 Respiratory Rate 22 H 25 H Blood Pressure 121/67 129/99 H Pulse Oximetry 100 100 Oxygen Delivery Oxygen Flow Rate 02/08/25 23:00 02/09/25 00:00 02/09/25 00:00 Temperature Pulse Rate 89 89 87 Respiratory Rate 18 18 Blood Pressure 102/60 Pulse Oximetry 93 93 Oxygen Delivery Nasal Cannula Oxygen Flow Rate 2 02/09/25 01:00 02/09/25 02:00 02/09/25 02:00 Temperature Pulse Rate 87 87 83 Respiratory Rate 19 22 H Blood Pressure 129/99 H 106/52 L Pulse Oximetry 100 97 Oxygen Delivery Oxygen Flow Rate 02/09/25 03:00 02/09/25 04:00 02/09/25 04:00 Temperature Pulse Rate 74 74 74 Respiratory Rate 14 14 Blood Pressure 94/53 L Pulse Oximetry 99 99 Oxygen Delivery Nasal Cannula Oxygen Flow Rate 2 02/09/25 04:00 02/09/25 05:00 02/09/25 05:40 Temperature 98.6 F 98.6 F Pulse Rate 70 70 Respiratory Rate 22 H 21 H Blood Pressure 149/70 H 149/70 H Pulse Oximetry 100 100 Oxygen Delivery Oxygen Flow Rate 02/09/25 05:40 02/09/25 08:00 02/09/25 09:00 Temperature 98.5 F 98.4 F 98.1 F Pulse Rate 92 81 Respiratory Rate 18 20 Blood Pressure 162/108 H 162/108 H Pulse Oximetry 99 97 Oxygen Delivery Oxygen Flow Rate 02/09/25 10:00 02/09/25 11:00 02/09/25 11:02 Temperature 98.3 F 98.0 F Pulse Rate 68 89 Respiratory Rate 13 14 Blood Pressure 144/62 H 149/120 H Pulse Oximetry 100 99 Oxygen Delivery Room Air Oxygen Flow Rate 02/09/25 12:00 02/09/25 13:00 Temperature 98.3 F 99.0 F Pulse Rate 68 87 Respiratory Rate 16 26 H Blood Pressure 134/69 120/61 Pulse Oximetry 98 88 L Oxygen Delivery Oxygen Flow Rate Intake/Output Intake/Output: Intake & Output 02/06/25 02/07/25 02/08/25 02/09/25 23:59 23:59 23:59 23:59 Intake Total 2116.5 1100 Output Total 300 850 Balance 1816.5 250 Meds/Results Medications: Active Medications Generic Name Dose Route Start Last Admin Trade Name Freq PRN Reason Stop Dose Admin Acetaminophen 650 mg 02/08/25 11:27 Acetaminophen 325 Mg Tablet PO Q4H PRN Mild Pain (1-3) or Fever Dextrose 12.5 gm 02/08/25 10:04 Dextrose 50% 25 Gm/50 Ml Syringe IV PUSH PRN PRN Hypoglycemia Protocol Enoxaparin Sodium 40 mg 02/09/25 09:00 02/09/25 08:41 Enoxaparin 40 Mg/0.4 Ml Syringe SUB-Q 40 mg DAILY JANETTE Administration Glucagon 1 mg 02/08/25 10:04 Glucagon For Inj 1 Mg Vial IM PRN PRN Hypoglycemia Protocol Glucose 15 gm 02/08/25 10:04 Glucose Oral Gel 15 Gm Of Glucse In 37.5 Gm Tube PO PRN PRN Hypoglycemia Protocol Hydralazine HCl 10 mg 02/09/25 08:04 Hydralazine Hcl 20 Mg/Ml Vial IV PUSH Q4H PRN Blood Pressure - High Dextrose 1,000 mls @ 100 mls/hr 02/08/25 10:04 Dextrose 5% 1,000 Ml IVPB PRN PRN Hypoglycemia Protocol Piperacillin Sod/Tazobactam 50 mls @ 100 mls/hr 02/09/25 11:00 02/09/25 11:59 Sod 2.25 gm/ Sodium Chloride IVPB 100 mls/hr Q6HR JANETTE Administration Insulin Aspart 3 - 6 units 02/09/25 01:00 02/09/25 11:59 Insulin Aspart (*Bkc) 100 Units/Ml SUB-Q 4 units Q4HR JANETTE Administration Protocol Insulin Glargine 45 units 02/08/25 23:10 02/08/25 23:28 Insulin Glargine (*Bkc) 100 Units/Ml SUB-Q 45 units HS JANETTE Administration Metoprolol Tartrate 5 mg 02/08/25 14:18 Metoprolol Tartrate Inj 5 Mg/5 Ml Vial IV PUSH Q4H PRN HR> 120 consistent Ondansetron HCl 4 mg 02/08/25 11:27 Ondansetron Inj 4 Mg/2 Ml Vial IV PUSH Q4H PRN Nausea Radiology Results: ITS Impressions Head CT 02/08/25 09:21 Impression: 1. Limited study. No acute infarct or hemorrhage Chest X-Ray 02/08/25 09:31 IMPRESSION: No acute findings. Chest/Abdomen/Pelvis CT 02/08/25 16:20 IMPRESSION: 1. Directed exam as above demonstrating no acute surgical abnormality. Mild strandy changes about the large intestine could be associated with developing inflammatory or infectious colitis. 2. Mild thickening of the urinary bladder wall may be present. 3. Several other chronic findings as above. Labs Labs: Laboratory Results - last 24 hr 02/08/25 02/08/25 02/08/25 13:43 14:06 14:27 WBC RBC Hgb Hct MCV MCH MCHC RDW Plt Count MPV Sodium 139 Potassium 3.6 Chloride 104 Carbon Dioxide 14 L Anion Gap 21 H BUN 34 H Creatinine 0.96 Estim Creat Clear Calc 33 Estimated GFR 56 L Glucose 344 H POC Capillary Glucose 414 H Calcium 9.8 Magnesium Total Bilirubin AST ALT Alkaline Phosphatase Ammonia < 9 L Total Creatine Kinase 23 L Total Protein Albumin Lipase 247 Ur Random Sodium 59 Urine Creatinine 28.2 Nasal MRSA (PCR) Not detected Stl Occult Blood (IFOB) C. difficile (PCR) 02/08/25 02/08/25 02/08/25 14:50 15:55 16:29 WBC RBC Hgb Hct MCV MCH MCHC RDW Plt Count MPV Sodium Potassium Chloride Carbon Dioxide Anion Gap BUN Creatinine Estim Creat Clear Calc Estimated GFR Glucose POC Capillary Glucose 352 H 487 H Calcium Magnesium Total Bilirubin AST ALT Alkaline Phosphatase Ammonia Total Creatine Kinase Total Protein Albumin Lipase Ur Random Sodium Urine Creatinine Nasal MRSA (PCR) Stl Occult Blood (IFOB) Negative C. difficile (PCR) Negative 02/08/25 02/08/25 02/08/25 17:10 18:00 18:20 WBC RBC Hgb Hct MCV MCH MCHC RDW Plt Count MPV Sodium 140 Potassium 3.8 Chloride 109 H Carbon Dioxide 18 L Anion Gap 13 H BUN 33 H Creatinine 0.80 Estim Creat Clear Calc 39 Estimated GFR > 60 Glucose 168 H POC Capillary Glucose 218 H 222 H Calcium 10.2 Magnesium Total Bilirubin AST ALT Alkaline Phosphatase Ammonia Total Creatine Kinase Total Protein Albumin Lipase Ur Random Sodium Urine Creatinine Nasal MRSA (PCR) Stl Occult Blood (IFOB) C. difficile (PCR) 02/08/25 02/08/25 02/08/25 19:01 20:01 21:14 WBC RBC Hgb Hct MCV MCH MCHC RDW Plt Count MPV Sodium Potassium Chloride Carbon Dioxide Anion Gap BUN Creatinine Estim Creat Clear Calc Estimated GFR Glucose POC Capillary Glucose 152 H 174 H 205 H Calcium Magnesium Total Bilirubin AST ALT Alkaline Phosphatase Ammonia Total Creatine Kinase Total Protein Albumin Lipase Ur Random Sodium Urine Creatinine Nasal MRSA (PCR) Stl Occult Blood (IFOB) C. difficile (PCR) 02/08/25 02/09/25 02/09/25 22:12 00:07 03:50 WBC 8.7 RBC 4.84 Hgb 14.6 Hct 43.7 MCV 90.3 MCH 30.2 MCHC 33.4 RDW 14.0 Plt Count 176 MPV 11.2 H Sodium 139 140 Potassium 4.2 4.3 Chloride 111 H 111 H Carbon Dioxide 18 L 16 L Anion Gap 10 13 H BUN 28 H 27 H Creatinine 0.71 0.80 Estim Creat Clear Calc 43 39 Estimated GFR > 60 > 60 Glucose 234 H 273 H POC Capillary Glucose 291 H Calcium 9.8 10.0 Magnesium 1.7 Total Bilirubin 0.9 AST 19 ALT 25 Alkaline Phosphatase 64 Ammonia Total Creatine Kinase Total Protein 6.4 Albumin 3.6 Lipase Ur Random Sodium Urine Creatinine Nasal MRSA (PCR) Stl Occult Blood (IFOB) C. difficile (PCR) 02/09/25 02/09/25 02/09/25 05:47 08:33 11:45 WBC RBC Hgb Hct MCV MCH MCHC RDW Plt Count MPV Sodium Potassium Chloride Carbon Dioxide Anion Gap BUN Creatinine Estim Creat Clear Calc Estimated GFR Glucose POC Capillary Glucose 299 H 235 H 285 H Calcium Magnesium Total Bilirubin AST ALT Alkaline Phosphatase Ammonia Total Creatine Kinase Total Protein Albumin Lipase Ur Random Sodium Urine Creatinine Nasal MRSA (PCR) Stl Occult Blood (IFOB) C. difficile (PCR) Quality VTE Prophylaxis VTE prophylaxis: pharmacologic ordered
--- NOTE | 2025-02-09 15:18 | PM.IMPN ---
Progress Note: A&P Assessment and Plan (1) DKA (diabetic ketoacidosis): Code(s): E11.10 - Type 2 diabetes mellitus with ketoacidosis without coma Status: Acute Assessment and Plan: Pt was given IVF bolus and has been started on started on infusion Insulin infusion started and Q1H glucose monitoring is being done Serial labs ordered Replace electrolytes as needed Consult dietitian and elementary educator -patient was transitioned to long-acting insulin and sliding scale insulin overnight, -Hemoglobin A1c is 14.0 this admission (2) CAD (coronary artery disease): Code(s): I25.10 - Atherosclerotic heart disease of [place] coronary artery without angina pectoris Status: Acute Assessment and Plan: Will resume aspirin -hold home enalapril for now as blood pressures are stable (3) PAF (paroxysmal atrial fibrillation): Code(s): I48.0 - Paroxysmal atrial fibrillation Status: Acute Assessment and Plan: Currently in sinus rhythm, rate controlled, continue to monitor (4) RONALD (acute kidney injury): Code(s): N17.9 - Acute kidney failure, unspecified Status: Resolved Assessment and Plan: RONALD likely secondary to DKA and hypovolemia, creatinine on admission was 1.27 Patient received adequate IV fluids Urine electrolytes not prerenal Creatinine has normalized to 0.80 -continue to monitor urine output, renal function and electrolytes (5) Metabolic encephalopathy: Code(s): G93.41 - Metabolic encephalopathy Status: Acute Assessment and Plan: Head CT was negative TSH was neg Since patient is on valproic acid , ammonia levels within normal limits (<9) Patient does not speak appears tearful, history of dementia Consider neurology evaluation if warranted (6) Abdominal pain: Code(s): R10.9 - Unspecified abdominal pain Status: Inactive Assessment and Plan: Patient unable to provide any meaningful history. Appears tender on abdominal exam. LFTs were unremarkable Will check abdominal CT and lipase level -lipase is normal -CT scan of the abdomen and pelvis showed possible inflammatory or infectious colitis, started on Zosyn (02/09) 02/08: CT scan of the abdomen and pelvis 1. Directed exam as above demonstrating no acute surgical abnormality. Mild strandy changes about the large intestine could be associated with developing inflammatory or infectious colitis. 2. Mild thickening of the urinary bladder wall may be present. 3. Several other chronic findings as above. Plan DVT prophylaxis -Lovenox Stress ulcer prophylaxis: Not indicated as patient is on a diet Nutrition - diabetic diet, speech evaluation was done, patient currently on pureed and thickened liquids Care coordination is involved in this patient's care and evaluating possibility of placement and obtaining regular medications for the patient Code Status - Full Code Subjective Date/time seen: 02/09/25 15:18 Interval history: 79-year-old female with history of CHF, CAD status post CABG, paroxysmal atrial fibrillation, insulin-dependent diabetes mellitus, history of CVA, essential hypertension, hyperlipidemia, diabetic neuropathy presents to [facility] with acute altered mental status superimposed on dementia. Unfortunately the patient was the not able to get her insulin for a few weeks due to financial difficulties. Diagnosed with DKA in the ER. Acidotic. Contact Lens Assistant consulted. Started on DKA protocol. Review of Systems Review of Systems: ROS unobtainable: Yes unobtainable due to medical condition and unobtainable due to mental status Exam Narrative: General: Old frail female who is awake but confused and appears uncomfortable Lungs/Chest: Trachea central Clear BS B/L, No crackles or wheezing. Cardiac: RRR. Normal S1 S2. No murmurs Circulation: Pedal pulses are intact and symmetrical. Abdomen: Normal bowel sounds. Obese. Soft. She grimaces on abdominal exam Extremities: No clubbing, cyanosis or edema. Warm : Ulloa in place Neurologic: Follows commands with both hands and opens her mouth on exam. Moves all 4 extremities PERRL AOx 0 Skin: No Rash Objective Data Vital Signs Vital Signs: Vital Signs - 24 hr 02/08/25 16:00 02/08/25 16:00 02/08/25 17:00 Temperature 97.8 F 98.2 F Pulse Rate 91 91 87 Respiratory Rate 19 24 H Blood Pressure 138/65 134/61 Pulse Oximetry 100 100 Oxygen Delivery Oxygen Flow Rate 02/08/25 18:00 02/08/25 18:00 02/08/25 19:00 Temperature 98.3 F 98.7 F Pulse Rate 83 90 86 Respiratory Rate 24 H 27 H Blood Pressure 100/42 L 108/55 L Pulse Oximetry 100 96 Oxygen Delivery Oxygen Flow Rate 02/08/25 20:00 02/08/25 20:00 02/08/25 20:00 Temperature 98.6 F Pulse Rate 86 84 82 Respiratory Rate 27 H 23 H Blood Pressure 104/50 L Pulse Oximetry 96 100 Oxygen Delivery Nasal Cannula Oxygen Flow Rate 2 02/08/25 21:00 02/08/25 22:00 02/08/25 22:00 Temperature 98.7 F Pulse Rate 68 68 83 Respiratory Rate 22 H 25 H Blood Pressure 121/67 129/99 H Pulse Oximetry 100 100 Oxygen Delivery Oxygen Flow Rate 02/08/25 23:00 02/09/25 00:00 02/09/25 00:00 Temperature Pulse Rate 89 89 87 Respiratory Rate 18 18 Blood Pressure 102/60 Pulse Oximetry 93 93 Oxygen Delivery Nasal Cannula Oxygen Flow Rate 2 02/09/25 01:00 02/09/25 02:00 02/09/25 02:00 Temperature Pulse Rate 87 87 83 Respiratory Rate 19 22 H Blood Pressure 129/99 H 106/52 L Pulse Oximetry 100 97 Oxygen Delivery Oxygen Flow Rate 02/09/25 03:00 02/09/25 04:00 02/09/25 04:00 Temperature Pulse Rate 74 74 74 Respiratory Rate 14 14 Blood Pressure 94/53 L Pulse Oximetry 99 99 Oxygen Delivery Nasal Cannula Oxygen Flow Rate 2 02/09/25 04:00 02/09/25 05:00 02/09/25 05:40 Temperature 98.6 F 98.6 F Pulse Rate 70 70 Respiratory Rate 22 H 21 H Blood Pressure 149/70 H 149/70 H Pulse Oximetry 100 100 Oxygen Delivery Oxygen Flow Rate 02/09/25 05:40 02/09/25 08:00 02/09/25 08:00 Temperature 98.5 F 98.4 F Pulse Rate 92 92 Respiratory Rate 18 Blood Pressure 162/108 H Pulse Oximetry 99 Oxygen Delivery Oxygen Flow Rate 02/09/25 09:00 02/09/25 10:00 02/09/25 10:00 Temperature 98.1 F 98.3 F Pulse Rate 81 68 67 Respiratory Rate 20 13 Blood Pressure 162/108 H 144/62 H Pulse Oximetry 97 100 Oxygen Delivery Oxygen Flow Rate 02/09/25 11:00 02/09/25 11:02 02/09/25 12:00 Temperature 98.0 F 98.3 F Pulse Rate 89 68 Respiratory Rate 14 16 Blood Pressure 149/120 H 134/69 Pulse Oximetry 99 98 Oxygen Delivery Room Air Oxygen Flow Rate 02/09/25 12:00 02/09/25 13:00 02/09/25 14:00 Temperature 99.0 F 96.9 F L Pulse Rate 99 87 76 Respiratory Rate 26 H 15 Blood Pressure 120/61 120/61 Pulse Oximetry 88 L 99 Oxygen Delivery Oxygen Flow Rate 02/09/25 14:00 Temperature Pulse Rate 78 Respiratory Rate Blood Pressure Pulse Oximetry Oxygen Delivery Oxygen Flow Rate Intake/Output Intake/Output: Intake & Output 02/06/25 02/07/25 02/08/25 02/09/25 23:59 23:59 23:59 23:59 Intake Total 2116.5 1150 Output Total 300 925 Balance 1816.5 225 Meds/Results Medications: Active Medications Generic Name Dose Route Start Last Admin Trade Name Freq PRN Reason Stop Dose Admin Acetaminophen 650 mg 02/08/25 11:27 Acetaminophen 325 Mg Tablet PO Q4H PRN Mild Pain (1-3) or Fever Aspirin 81 mg 02/09/25 18:00 Aspirin 81 Mg Chewable Tablet PO QPM JANETTE Dextrose 12.5 gm 02/08/25 10:04 Dextrose 50% 25 Gm/50 Ml Syringe IV PUSH PRN PRN Hypoglycemia Protocol Divalproex Sodium 125 mg 02/09/25 17:[address] 125 Mg Tabec PO BID [facility] Empagliflozin 10 mg 02/10/25 09:00 Empagliflozin 10 Mg Tablet PO DAILY [facility] Enoxaparin Sodium 40 mg 02/09/25 09:00 02/09/25 08:41 Enoxaparin 40 Mg/0.4 Ml Syringe SUB-Q 40 mg DAILY JANETTE Administration Glucagon 1 mg 02/08/25 10:04 Glucagon For Inj 1 Mg Vial IM PRN PRN Hypoglycemia Protocol Glucose 15 gm 02/08/25 10:04 Glucose Oral Gel 15 Gm Of Glucse In 37.5 Gm Tube PO PRN PRN Hypoglycemia Protocol Hydralazine HCl 10 mg 02/09/25 08:04 Hydralazine Hcl 20 Mg/Ml Vial IV PUSH Q4H PRN Blood Pressure - High Dextrose 1,000 mls @ 100 mls/hr 02/08/25 10:04 Dextrose 5% 1,000 Ml IVPB PRN PRN Hypoglycemia Protocol Piperacillin Sod/Tazobactam 50 mls @ 100 mls/hr 02/09/25 11:00 02/09/25 12:29 Sod 2.25 gm/ Sodium Chloride IVPB Infused Q6HR [facility] Infusion Insulin Aspart 3 - 6 units 02/09/25 01:00 02/09/25 11:59 Insulin Aspart (*Bkc) 100 Units/Ml SUB-Q 4 units Q4HR [facility] Administration Protocol Insulin Glargine 45 units 02/08/25 23:10 02/08/25 23:28 Insulin Glargine (*Bkc) 100 Units/Ml SUB-Q 45 units HS [facility] Administration Memantine 10 mg 02/09/25 17:00 Memantine 10 Mg Tablet PO BID [facility] Metoprolol Tartrate 5 mg 02/08/25 14:18 Metoprolol Tartrate Inj 5 Mg/5 Ml Vial IV PUSH Q4H PRN HR> 120 consistent Ondansetron HCl 4 mg 02/08/25 11:27 Ondansetron Inj 4 Mg/2 Ml Vial IV PUSH Q4H PRN Nausea Paroxetine HCl 30 mg 02/10/25 09:00 Paroxetine 10 Mg Tablet PO DAILY [facility] Rosuvastatin Calcium 10 mg 02/09/25 18:00 Rosuvastatin 10 Mg Tablet PO QPM [facility] Trazodone HCl 50 mg 02/09/25 21:00 Trazodone Hcl 50 Mg Tablet PO QHS [facility] Radiology Results: ITS Impressions Head CT 02/08/25 09:21 Impression: 1. Limited study. No acute infarct or hemorrhage Chest X-Ray 02/08/25 09:31 IMPRESSION: No acute findings. Chest/Abdomen/Pelvis CT 02/08/25 16:20 IMPRESSION: 1. Directed exam as above demonstrating no acute surgical abnormality. Mild strandy changes about the large intestine could be associated with developing inflammatory or infectious colitis. 2. Mild thickening of the urinary bladder wall may be present. 3. Several other chronic findings as above. Labs Labs: Laboratory Results - last 24 hr 02/08/25 02/08/25 02/08/25 14:06 14:27 15:55 WBC RBC Hgb Hct MCV MCH MCHC RDW Plt Count MPV Sodium Potassium Chloride Carbon Dioxide Anion Gap BUN Creatinine Estim Creat Clear Calc Estimated GFR Glucose POC Capillary Glucose 487 H Calcium Magnesium Total Bilirubin AST ALT Alkaline Phosphatase Ammonia < 9 L Total Protein Albumin Nasal MRSA (PCR) Not detected Stl Occult Blood (IFOB) C. difficile (PCR) 02/08/25 02/08/25 02/08/25 16:29 17:10 18:00 WBC RBC Hgb Hct MCV MCH MCHC RDW Plt Count MPV Sodium Potassium Chloride Carbon Dioxide Anion Gap BUN Creatinine Estim Creat Clear Calc Estimated GFR Glucose POC Capillary Glucose 218 H 222 H Calcium Magnesium Total Bilirubin AST ALT Alkaline Phosphatase Ammonia Total Protein Albumin Nasal MRSA (PCR) Stl Occult Blood (IFOB) Negative C. difficile (PCR) Negative 02/08/25 02/08/25 02/08/25 18:20 19:01 20:01 WBC RBC Hgb Hct MCV MCH MCHC RDW Plt Count MPV Sodium 140 Potassium 3.8 Chloride 109 H Carbon Dioxide 18 L Anion Gap 13 H BUN 33 H Creatinine 0.80 Estim Creat Clear Calc 39 Estimated GFR > 60 Glucose 168 H POC Capillary Glucose 152 H 174 H Calcium 10.2 Magnesium Total Bilirubin AST ALT Alkaline Phosphatase Ammonia Total Protein Albumin Nasal MRSA (PCR) Stl Occult Blood (IFOB) C. difficile (PCR) 02/08/25 02/08/25 02/09/25 21:14 22:12 00:07 WBC RBC Hgb Hct MCV MCH MCHC RDW Plt Count MPV Sodium 139 Potassium 4.2 Chloride 111 H Carbon Dioxide 18 L Anion Gap 10 BUN 28 H Creatinine 0.71 Estim Creat Clear Calc 43 Estimated GFR > 60 Glucose 234 H POC Capillary Glucose 205 H 291 H Calcium 9.8 Magnesium Total Bilirubin AST ALT Alkaline Phosphatase Ammonia Total Protein Albumin Nasal MRSA (PCR) Stl Occult Blood (IFOB) C. difficile (PCR) 02/09/25 02/09/25 02/09/25 03:50 05:47 08:33 WBC 8.7 RBC 4.84 Hgb 14.6 Hct 43.7 MCV 90.3 MCH 30.2 MCHC 33.4 RDW 14.0 Plt Count 176 MPV 11.2 H Sodium 140 Potassium 4.3 Chloride 111 H Carbon Dioxide 16 L Anion Gap 13 H BUN 27 H Creatinine 0.80 Estim Creat Clear Calc 39 Estimated GFR > 60 Glucose 273 H POC Capillary Glucose 299 H 235 H Calcium 10.0 Magnesium 1.7 Total Bilirubin 0.9 AST 19 ALT 25 Alkaline Phosphatase 64 Ammonia Total Protein 6.4 Albumin 3.6 Nasal MRSA (PCR) Stl Occult Blood (IFOB) C. difficile (PCR) 02/09/25 11:45 WBC RBC Hgb Hct MCV MCH MCHC RDW Plt Count MPV Sodium Potassium Chloride Carbon Dioxide Anion Gap BUN Creatinine Estim Creat Clear Calc Estimated GFR Glucose POC Capillary Glucose 285 H Calcium Magnesium Total Bilirubin AST ALT Alkaline Phosphatase Ammonia Total Protein Albumin Nasal MRSA (PCR) Stl Occult Blood (IFOB) C. difficile (PCR)
[2025-02-09] MEDS: OLANZapine 2.5 MG, WATER, STERILE FOR INJECTION 2.1 ML IM (17:13)
[2025-02-09] MEDS: INSULIN GLARGINE (*BKC) 100 UNITS/ML 45 UNITS SUB-Q (20:37)
--- NOTE | 2025-02-09 22:56 | ADMIMU ---
This patient, Ana M Asif, was admitted to ICU status, and placed in 3 Med Surg Room 331-02. Patient/family oriented to hospital policies and general routines including ID bracelet, bed and alarms, visiting hours, pain management, procedures, bathroom and other care routines, personal items, smoking policy, room service/diet, and visiting hours. Valuables list has been completed. Information on how to activate the Rapid Response Team has been discussed. Patient/Family are encouraged to report perceived risks to care and to ask questions if they do not understand what they are told or what they should do.
[2025-02-10] MEDS: INSULIN ASPART (*BKC) 100 UNITS/ML SUB-Q ×6 (00:56→21:03)
[2025-02-10] MEDS: PIPERACILLIN/TAZOBACTAM SOD 2.25 GM in SODIUM CHLORIDE 0.9% IV 50 ML 100 ML IVPB ×4 (06:32→23:22)
[2025-02-10 06:55] VITALS: BP 136/74; PULSE 78; RESP 18; TEMP 36.4; O2SAT 100
[2025-02-10 07:46] LABS: Hematocrit 43.7 % (37.0-47.0); Hemoglobin 14.2 g/dL (12.0-15.0); Immature Granulocyte Percent A 0.2 % (0-0.5); Lymphocytes Absolute Auto 1.21 K/mm3 (0.9-3.2); Mean Corpuscular HGB Conc 32.5 g/dl (32-36); Mean Corpuscular Hemoglobin 30.4 pg (26-34); Mean Corpuscular Volume 93.6 fl (80-100); Nucleated Red Blood Cells Absolute Auto 0.000 K/mm3 (0.0-0.012); Nucleated Red Blood Cells Perc 0.0 % (0.0-0.2); Platelet Count Result 158 k/mm3 (150-375); Red Blood Count 4.67 M/mm3 (4.2-5.4); White Blood Count 5.3 K/mm3 (4.5-10.0)
[2025-02-10 08:00] VITALS: BP 136/96; PULSE 86; RESP 20; TEMP 35.8; O2SAT 93
[2025-02-10 08:06] LABS: Alanine Aminotransferase 18 U/L (6-35); Albumin Level 3.3 g/dL (3.5-5.1); Alkaline Phosphatase 66 U/L (38-126); Anion Gap 6 mmol/L (4-12); Aspartate Amino Transferase 18 U/L (14-36); Bilirubin,Total 0.6 mg/dL (0.2-1.3); Blood Urea Nitrogen 25 mg/dL (7-17); Calcium 9.8 mg/dL (8.4-10.2); Carbon Dioxide 26 mmol/L (22-30); Chloride 111 mmol/L (98-107); Estimated CRCL calculation 44 ml/min; Estimated Glomerular Filt Rate > 60; Glucose 156 mg/dL (65-110); Magnesium 1.7 mg/dL (1.6-2.3); Potassium 2.9 mmol/L (3.4-5.0); Sodium 143 mmol/L (137-145); Total Protein 6.1 g/dL (6.3-8.2)
[2025-02-10] MEDS: EMPAGLIFLOZIN 10 MG TABLET PO (08:13)
[2025-02-10] MEDS: MEMANTINE 10 MG TABLET PO ×2 (08:14→17:02)
[2025-02-10] MEDS: ENOXAPARIN 40 MG/0.4 ML SYRINGE SUB-Q (08:16)
--- NOTE | 2025-02-10 09:39 | PCOTNOTE ---
Patient refused treatment this session. Would not wake up for therapist despite max encouragement. Will continue to follow.
[2025-02-10] MEDS: POTASSIUM CHLORIDE 20 MEQ ER TABLET 40 MEQ PO (11:05)
[2025-02-10 16:00] VITALS: BP 132/84; PULSE 75; RESP 20; TEMP 36.2; O2SAT 100
[2025-02-10] MEDS: ASPIRIN 81 MG CHEWABLE TABLET PO (17:02)
[2025-02-10] MEDS: DIVALPROEX SODIUM DR 125 MG TABEC PO (17:03)
[2025-02-10] MEDS: ROSUVASTATIN 10 MG TABLET PO (17:03)
--- NOTE | 2025-02-10 17:12 | P.PNIM_ITS ---
Progress Note: A&P Assessment and Plan (1) DKA (diabetic ketoacidosis): Code(s): E11.10 - Type 2 diabetes mellitus with ketoacidosis without coma Status: Acute Assessment and Plan: Pt was given IVF bolus and has been started on started on infusion Insulin infusion started and Q1H glucose monitoring is being done Serial labs ordered Replace electrolytes as needed Consult dietitian and nurses educator -patient was transitioned to long-acting insulin and sliding scale insulin overnight, -Hemoglobin A1c is 14.0 this admission Assuming care on 02/10/2025: In spite of being started on Lantus, blood sugars elevated over 300, will start lispro 5 units t.i.d. with meals. Continue to monitor Accu-Cheks. (2) CAD (coronary artery disease): Code(s): I25.10 - Atherosclerotic heart disease of [place] coronary artery without angina pectoris Status: Acute Assessment and Plan: Will resume aspirin -hold home enalapril for now as blood pressures are stable (3) PAF (paroxysmal atrial fibrillation): Code(s): I48.0 - Paroxysmal atrial fibrillation Status: Acute Assessment and Plan: Currently in sinus rhythm, rate controlled, continue to monitor (4) RONALD (acute kidney injury): Code(s): N17.9 - Acute kidney failure, unspecified Status: Resolved Assessment and Plan: RONALD likely secondary to DKA and hypovolemia, creatinine on admission was 1.27 Patient received adequate IV fluids Urine electrolytes not prerenal Creatinine has normalized to 0.80 -continue to monitor urine output, renal function and electrolytes Hypokalemia: Placed with KCl 40 mEq tablet. Recheck BMP now. (5) Metabolic encephalopathy: Code(s): G93.41 - Metabolic encephalopathy Status: Acute Assessment and Plan: Head CT was negative TSH was neg patient is on valproic acid , ammonia levels within normal limits (<9) Patient does not speak appears tearful, history of dementia Consider neurology evaluation if warranted (6) Abdominal pain: Code(s): R10.9 - Unspecified abdominal pain Status: Inactive Assessment and Plan: Patient unable to provide any meaningful history. Appears tender on abdominal exam. LFTs were unremarkable Will check abdominal CT and lipase level -lipase is normal -CT scan of the abdomen and pelvis showed possible inflammatory or infectious colitis, started on Zosyn (02/09) 02/08: CT scan of the abdomen and pelvis 1. Directed exam as above demonstrating no acute surgical abnormality. Mild strandy changes about the large intestine could be associated with developing inflammatory or infectious colitis. 2. Mild thickening of the urinary bladder wall may be present. 3. Several other chronic findings as above. Plan DVT prophylaxis -Lovenox Stress ulcer prophylaxis: Not indicated as patient is on a diet Nutrition - diabetic diet, speech evaluation was done, patient currently on pureed and thickened liquids Care coordination is involved in this patient's care and evaluating possibility of placement and obtaining regular medications for the patient DNR Time Spent With Patient Time with patient: Greater than 35 minutes Subjective Date/time seen: 02/10/25 17:12 Interval history: No acute events since being transferred on the ICU. She remains confused, at her baseline. Review of Systems Review of Systems: ROS unobtainable: Yes unobtainable due to medical condition and unobtainable due to mental status Exam Narrative: General: Old frail female who is awake but confused Lungs/Chest: Trachea central Clear BS B/L, No crackles or wheezing. Cardiac: RRR. Normal S1 S2. No murmurs Circulation: Pedal pulses are intact and symmetrical. Abdomen: Normal bowel sounds. Obese. Soft. She grimaces on abdominal exam Extremities: No clubbing, cyanosis or edema. Warm : Ulloa in place Neurologic: Follows commands with both hands and opens her mouth on exam. Moves all 4 extremities PERRL AOx 0 Skin: No Rash Objective Data Vital Signs Vital Signs: Vital Signs - 24 hr 02/09/25 20:00 02/09/25 20:00 02/10/25 06:55 Temperature 99.1 F 97.5 F L Pulse Rate 83 78 Respiratory Rate 20 18 Blood Pressure 143/76 H 136/74 Pulse Oximetry 100 100 Oxygen Delivery Room Air 02/10/25 08:00 02/10/25 08:30 Temperature 96.5 F L Pulse Rate 86 Respiratory Rate 20 Blood Pressure 136/96 H Pulse Oximetry 93 Oxygen Delivery Room Air Intake/Output Intake/Output: Intake & Output 02/07/25 02/08/25 02/09/25 02/10/25 23:59 23:59 23:59 23:59 Intake Total 2116.5 2160 390 Output Total 300 925 Balance 1816.5 1235 390 Meds/Results Medications: Active Medications Generic Name Dose Route Start Last Admin Trade Name Freq PRN Reason Stop Dose Admin Acetaminophen 650 mg 02/08/25 11:27 Acetaminophen 325 Mg Tablet PO Q4H PRN Mild Pain (1-3) or Fever Aspirin 81 mg 02/09/25 18:00 02/10/25 17:02 Aspirin 81 Mg Chewable Tablet PO 81 mg QPM JANETTE Administration Dextrose 12.5 gm 02/08/25 10:04 Dextrose 50% 25 Gm/50 Ml Syringe IV PUSH PRN PRN Hypoglycemia Protocol Divalproex Sodium 125 mg 02/09/25 17:00 02/10/25 17:[address] 125 Mg Tabec PO 125 mg BID JANETTE Administration Empagliflozin 10 mg 02/10/25 09:00 02/10/25 08:13 Empagliflozin 10 Mg Tablet PO 10 mg DAILY JANETTE Administration Enoxaparin Sodium 40 mg 02/09/25 09:00 02/10/25 08:16 Enoxaparin 40 Mg/0.4 Ml Syringe SUB-Q 40 mg DAILY JANETTE Administration Glucagon 1 mg 02/08/25 10:04 Glucagon For Inj 1 Mg Vial IM PRN PRN Hypoglycemia Protocol Glucose 15 gm 02/08/25 10:04 Glucose Oral Gel 15 Gm Of Glucse In 37.5 Gm Tube PO PRN PRN Hypoglycemia Protocol Hydralazine HCl 10 mg 02/09/25 08:04 Hydralazine Hcl 20 Mg/Ml Vial IV PUSH Q4H PRN Blood Pressure - High Dextrose 1,000 mls @ 100 mls/hr 02/08/25 10:04 Dextrose 5% 1,000 Ml IVPB PRN PRN Hypoglycemia Protocol Piperacillin Sod/Tazobactam 50 mls @ 100 mls/hr 02/09/25 11:00 02/10/25 17:11 Sod 2.25 gm/ Sodium Chloride IVPB 100 mls/hr Q6HR JANETTE Administration Insulin Aspart 3 - 6 units 02/09/25 01:00 02/10/25 16:22 Insulin Aspart (*Bkc) 100 Units/Ml SUB-Q 5 units Q4HR JANETTE Administration Protocol Insulin Aspart 5 units 02/10/25 17:15 Insulin Aspart (*Bkc) 100 Units/Ml 0.083 units/kg (5 units) SUB-Q TIDWM [facility] Insulin Glargine 45 units 02/08/25 23:10 02/09/25 20:37 Insulin Glargine (*Bkc) 100 Units/Ml SUB-Q 45 units HS JANETTE Administration Memantine 10 mg 02/09/25 17:00 02/10/25 17:02 Memantine 10 Mg Tablet PO 10 mg BID JANETTE Administration Metoprolol Tartrate 5 mg 02/08/25 14:18 Metoprolol Tartrate Inj 5 Mg/5 Ml Vial IV PUSH Q4H PRN HR> 120 consistent Ondansetron HCl 4 mg 02/08/25 11:27 Ondansetron Inj 4 Mg/2 Ml Vial IV PUSH Q4H PRN Nausea Paroxetine HCl 30 mg 02/10/25 09:00 02/10/25 08:13 Paroxetine 10 Mg Tablet PO 30 mg DAILY JANETTE Administration Rosuvastatin Calcium 10 mg 02/09/25 18:00 02/10/25 17:03 Rosuvastatin 10 Mg Tablet PO 10 mg QPM JANETTE Administration Trazodone HCl 50 mg 02/09/25 21:00 02/09/25 20:34 Trazodone Hcl 50 Mg Tablet PO Not Given QHS [facility] Radiology Results: ITS Impressions Head CT 02/08/25 09:21 Impression: 1. Limited study. No acute infarct or hemorrhage Chest X-Ray 02/08/25 09:31 IMPRESSION: No acute findings. Chest/Abdomen/Pelvis CT 02/08/25 16:20 IMPRESSION: 1. Directed exam as above demonstrating no acute surgical abnormality. Mild strandy changes about the large intestine could be associated with developing inflammatory or infectious colitis. 2. Mild thickening of the urinary bladder wall may be present. 3. Several other chronic findings as above. Labs Labs: Laboratory Results - last 24 hr 02/09/25 02/10/25 02/10/25 20:33 00:34 05:37 WBC RBC Hgb Hct MCV MCH MCHC RDW Plt Count MPV Immature Gran % (Auto) Neut % (Auto) Lymph % (Auto) Divide % (Auto) Eos % (Auto) Baso % (Auto) Lymph # (Auto) Divide # (Auto) Eos # (Auto) Baso # (Auto) Abs Immat Gran (auto) Absolute Neuts (auto) Absolute Nucleated RBC Nucleated RBC % Sodium Potassium Chloride Carbon Dioxide Anion Gap BUN Creatinine Estim Creat Clear Calc Estimated GFR Glucose POC Capillary Glucose 318 H 221 H 167 H Calcium Phosphorus Magnesium Total Bilirubin AST ALT Alkaline Phosphatase Total Protein Albumin 02/10/25 02/10/25 02/10/25 06:51 07:36 09:41 WBC 5.3 RBC 4.67 Hgb 14.2 Hct 43.7 MCV 93.6 MCH 30.4 MCHC 32.5 RDW 14.6 H Plt Count 158 MPV 11.9 H Immature Gran % (Auto) 0.2 Neut % (Auto) 62.8 Lymph % (Auto) 22.8 Divide % (Auto) 11.9 H Eos % (Auto) 1.5 Baso % (Auto) 0.8 Lymph # (Auto) 1.21 Divide # (Auto) 0.6 Eos # (Auto) 0.1 Baso # (Auto) 0.0 Abs Immat Gran (auto) 0.01 Absolute Neuts (auto) 3.3 Absolute Nucleated RBC 0.000 Nucleated RBC % 0.0 Sodium 143 Potassium 2.9 L Chloride 111 H Carbon Dioxide 26 Anion Gap 6 BUN 25 H Creatinine 0.84 Estim Creat Clear Calc 44 Estimated GFR > 60 Glucose 156 H POC Capillary Glucose 175 H 246 H Calcium 9.8 Phosphorus 2.4 L Magnesium 1.7 Total Bilirubin 0.6 AST 18 ALT 18 Alkaline Phosphatase 66 Total Protein 6.1 L Albumin 3.3 L 02/10/25 02/10/25 11:28 16:20 WBC RBC Hgb Hct MCV MCH MCHC RDW Plt Count MPV Immature Gran % (Auto) Neut % (Auto) Lymph % (Auto) Divide % (Auto) Eos % (Auto) Baso % (Auto) Lymph # (Auto) Divide # (Auto) Eos # (Auto) Baso # (Auto) Abs Immat Gran (auto) Absolute Neuts (auto) Absolute Nucleated RBC Nucleated RBC % Sodium Potassium Chloride Carbon Dioxide Anion Gap BUN Creatinine Estim Creat Clear Calc Estimated GFR Glucose POC Capillary Glucose 253 H 336 H Calcium Phosphorus Magnesium Total Bilirubin AST ALT Alkaline Phosphatase Total Protein Albumin
[2025-02-10 18:28] LABS: Anion Gap 9 mmol/L (4-12); Blood Urea Nitrogen 25 mg/dL (7-17); Calcium 9.6 mg/dL (8.4-10.2); Carbon Dioxide 24 mmol/L (22-30); Chloride 106 mmol/L (98-107); Estimated CRCL calculation 46 ml/min; Estimated Glomerular Filt Rate > 60; Glucose 330 mg/dL (65-110); Potassium 3.6 mmol/L (3.4-5.0); Sodium 139 mmol/L (137-145)
[2025-02-10] MEDS: INSULIN GLARGINE (*BKC) 100 UNITS/ML 45 UNITS SUB-Q (21:03)
[2025-02-10 21:30] VITALS: BP 152/52; PULSE 69; RESP 16; TEMP 36.6; O2SAT 98
[2025-02-11] MEDS: PIPERACILLIN/TAZOBACTAM SOD 2.25 GM in SODIUM CHLORIDE 0.9% IV 50 ML 100 ML IVPB ×3 (05:22→18:42)
[2025-02-11 07:06] LABS: Hematocrit 47.3 % (37.0-47.0); Hemoglobin 15.6 g/dL (12.0-15.0); Mean Corpuscular HGB Conc 33.0 g/dl (32-36); Mean Corpuscular Hemoglobin 30.8 pg (26-34); Mean Corpuscular Volume 93.3 fl (80-100); Platelet Count Result 147 k/mm3 (150-375); Red Blood Count 5.07 M/mm3 (4.2-5.4); White Blood Count 7.6 K/mm3 (4.5-10.0)
[2025-02-11 07:28] LABS: Alanine Aminotransferase 18 U/L (6-35); Albumin Level 3.8 g/dL (3.5-5.1); Alkaline Phosphatase 64 U/L (38-126); Anion Gap 7 mmol/L (4-12); Aspartate Amino Transferase 21 U/L (14-36); Bilirubin,Total 0.9 mg/dL (0.2-1.3); Blood Urea Nitrogen 17 mg/dL (7-17); Calcium 10.1 mg/dL (8.4-10.2); Carbon Dioxide 28 mmol/L (22-30); Chloride 103 mmol/L (98-107); Estimated CRCL calculation 56 ml/min; Estimated Glomerular Filt Rate > 60; Glucose 91 mg/dL (65-110); Magnesium 1.3 mg/dL (1.6-2.3); Potassium 3.2 mmol/L (3.4-5.0); Sodium 138 mmol/L (137-145); Total Protein 7.2 g/dL (6.3-8.2)
[2025-02-11] MEDS: EMPAGLIFLOZIN 10 MG TABLET PO (07:57)
[2025-02-11] MEDS: ENOXAPARIN 40 MG/0.4 ML SYRINGE SUB-Q (07:58)
[2025-02-11] MEDS: MEMANTINE 10 MG TABLET PO ×2 (07:58→16:03)
[2025-02-11] MEDS: DIVALPROEX SODIUM DR 125 MG TABEC PO ×2 (07:58→16:03)
--- NOTE | 2025-02-11 10:56 | PCOTNOTE ---
Attempted OT evaluation. Pt. refused to wake up and participate in therapy. Will continue to follow as able.
[2025-02-11] MEDS: INSULIN ASPART (*BKC) 100 UNITS/ML SUB-Q ×2 (11:46→17:24)
[2025-02-11] MEDS: MAGNESIUM SULF 4 GM/WATER100ML 4 GM/100 ML BAG IVPB (13:31)
[2025-02-11] MEDS: POTASSIUM CHLORIDE 20 MEQ ER TABLET 40 MEQ PO (13:31)
[2025-02-11 15:46] VITALS: BP 143/74; PULSE 84; RESP 17; TEMP 36.3; O2SAT 100
--- NOTE | 2025-02-11 16:07 | PM.IMPN ---
Progress Note: A&P Assessment and Plan (1) DKA (diabetic ketoacidosis): Code(s): E11.10 - Type 2 diabetes mellitus with ketoacidosis without coma Status: Acute Assessment and Plan: Pt was given IVF bolus and has been started on started on infusion Insulin infusion started and Q1H glucose monitoring is being done Serial labs ordered Replace electrolytes as needed Consult dietitian and adaptive physical educator -patient was transitioned to long-acting insulin and sliding scale insulin overnight, -Hemoglobin A1c is 14.0 this admission Assuming care on 02/10/2025: In spite of being started on Lantus, blood sugars elevated over 300, will start lispro 5 units t.i.d. with meals. Continue to monitor Accu-Cheks. 02/11/2025: Continue current management, blood sugars reviewed and better. (2) CAD (coronary artery disease): Code(s): I25.10 - Atherosclerotic heart disease of [place] coronary artery without angina pectoris Status: Acute Assessment and Plan: Will resume aspirin -hold home enalapril for now as blood pressures are stable (3) PAF (paroxysmal atrial fibrillation): Code(s): I48.0 - Paroxysmal atrial fibrillation Status: Acute Assessment and Plan: Currently in sinus rhythm, rate controlled, continue to monitor (4) RONALD (acute kidney injury): Code(s): N17.9 - Acute kidney failure, unspecified Status: Resolved Assessment and Plan: RONALD likely secondary to DKA and hypovolemia, creatinine on admission was 1.27 Patient received adequate IV fluids Urine electrolytes not prerenal Creatinine has normalized to 0.80 -continue to monitor urine output, renal function and electrolytes Hypokalemia: Hypo magnesemia, replace with both, continue to monitor daily. (5) Metabolic encephalopathy: Code(s): G93.41 - Metabolic encephalopathy Status: Acute Assessment and Plan: Head CT was negative TSH was neg Improved. Appears at baseline on 02/11/2025 (6) Abdominal pain: Code(s): R10.9 - Unspecified abdominal pain Status: Inactive Assessment and Plan: Patient unable to provide any meaningful history. Appears tender on abdominal exam. LFTs were unremarkable Will check abdominal CT and lipase level -lipase is normal -CT scan of the abdomen and pelvis showed possible inflammatory or infectious colitis, started on Zosyn (02/09) 11/06: CT scan of the abdomen and pelvis 1. Directed exam as above demonstrating no acute surgical abnormality. Mild strandy changes about the large intestine could be associated with developing inflammatory or infectious colitis. 2. Mild thickening of the urinary bladder wall may be present. 3. Several other chronic findings as above. Plan DVT prophylaxis -Lovenox Stress ulcer prophylaxis: Not indicated as patient is on a diet Nutrition - diabetic diet, speech evaluation was done, patient currently on pureed and thickened liquids Care coordination arranging for longterm placement DNR Time Spent With Patient Time with patient: Greater than 35 minutes Subjective Date/time seen: 02/11/25 16:07 Interval history: Looking much better. No agitation today. Confused but sitting comfortably Review of Systems Review of Systems: ROS unobtainable: Yes unobtainable due to medical condition and unobtainable due to mental status Exam Narrative: General: Old frail female who is awake but confused Lungs/Chest: Trachea central Clear BS B/L, No crackles or wheezing. Cardiac: RRR. Normal S1 S2. No murmurs Circulation: Pedal pulses are intact and symmetrical. Abdomen: Normal bowel sounds. Obese. Soft. She grimaces on abdominal exam Extremities: No clubbing, cyanosis or edema. Warm : Ulloa in place Neurologic: Follows commands with both hands and opens her mouth on exam. Moves all 4 extremities PERRL AOx 0 Skin: No Rash Objective Data Vital Signs Vital Signs: Vital Signs - 24 hr 02/10/25 20:00 02/10/25 21:30 02/11/25 15:46 Temperature 97.9 F 97.4 F L Pulse Rate 69 84 Respiratory Rate 16 17 Blood Pressure 152/52 H 143/74 H Pulse Oximetry 98 100 Oxygen Delivery Room Air Intake/Output Intake/Output: Intake & Output 02/08/25 02/09/25 02/10/25 02/11/25 23:59 23:59 23:59 23:59 Intake Total 2116.5 2160 1989 1297 Output Total 300 925 Balance 1816.5 1235 1989 1297 Meds/Results Medications: Active Medications Generic Name Dose Route Start Last Admin Trade Name Freq PRN Reason Stop Dose Admin Acetaminophen 650 mg 02/08/25 11:27 Acetaminophen 325 Mg Tablet PO Q4H PRN Mild Pain (1-3) or Fever Aspirin 81 mg 02/09/25 18:00 02/10/25 17:02 Aspirin 81 Mg Chewable Tablet PO 81 mg QPM JANETTE Administration Dextrose 12.5 gm 02/08/25 10:04 Dextrose 50% 25 Gm/50 Ml Syringe IV PUSH PRN PRN Hypoglycemia Protocol Divalproex Sodium 125 mg 02/09/25 17:00 02/11/25 16:[address] 125 Mg Tabec PO 125 mg BID JANETTE Administration Empagliflozin 10 mg 02/10/25 09:00 02/11/25 07:57 Empagliflozin 10 Mg Tablet PO 10 mg DAILY JANETTE Administration Enoxaparin Sodium 40 mg 02/09/25 09:00 02/11/25 07:58 Enoxaparin 40 Mg/0.4 Ml Syringe SUB-Q 40 mg DAILY JANETTE Administration Glucagon 1 mg 02/08/25 10:04 Glucagon For Inj 1 Mg Vial IM PRN PRN Hypoglycemia Protocol Glucose 15 gm 02/08/25 10:04 Glucose Oral Gel 15 Gm Of Glucse In 37.5 Gm Tube PO PRN PRN Hypoglycemia Protocol Hydralazine HCl 10 mg 02/09/25 08:04 Hydralazine Hcl 20 Mg/Ml Vial IV PUSH Q4H PRN Blood Pressure - High Dextrose 1,000 mls @ 100 mls/hr 02/08/25 10:04 Dextrose 5% 1,000 Ml IVPB PRN PRN Hypoglycemia Protocol Piperacillin Sod/Tazobactam 50 mls @ 100 mls/hr 02/09/25 11:00 02/11/25 11:17 Sod 2.25 gm/ Sodium Chloride IVPB 100 mls/hr Q6HR JANETTE Administration Magnesium Sulfate 4 gm in 100 mls @ 25 mls/hr 02/11/25 13:12 02/11/25 13:31 Magnesium Sulf 4 Gm/[id number] IVPB 02/11/25 17:11 25 mls/hr ONCE ONE Administration Insulin Aspart 3 - 6 units 02/09/25 01:00 02/11/25 11:45 Insulin Aspart (*Bkc) 100 Units/Ml SUB-Q Not Given Q4HR [facility] Protocol Insulin Aspart 5 units 02/10/25 17:15 02/11/25 11:46 Insulin Aspart (*Bkc) 100 Units/Ml 0.083 units/kg (5 units) 5 units SUB-Q Administration TIDWM [facility] Insulin Glargine 45 units 02/08/25 23:10 02/10/25 21:03 Insulin Glargine (*Bkc) 100 Units/Ml SUB-Q 45 units HS JANETTE Administration Memantine 10 mg 02/09/25 17:00 02/11/25 16:03 Memantine 10 Mg Tablet PO 10 mg BID JANETTE Administration Metoprolol Tartrate 5 mg 02/08/25 14:18 Metoprolol Tartrate Inj 5 Mg/5 Ml Vial IV PUSH Q4H PRN HR> 120 consistent Ondansetron HCl 4 mg 02/08/25 11:27 Ondansetron Inj 4 Mg/2 Ml Vial IV PUSH Q4H PRN Nausea Paroxetine HCl 30 mg 02/10/25 09:00 02/11/25 07:57 Paroxetine 10 Mg Tablet PO 30 mg DAILY JANETTE Administration Rosuvastatin Calcium 10 mg 02/09/25 18:00 02/10/25 17:03 Rosuvastatin 10 Mg Tablet PO 10 mg QPM JANETTE Administration Trazodone HCl 50 mg 02/09/25 21:00 02/10/25 21:03 Trazodone Hcl 50 Mg Tablet PO 50 mg QHS JANETTE Administration Radiology Results: ITS Impressions Head CT 02/08/25 09:21 Impression: 1. Limited study. No acute infarct or hemorrhage Chest X-Ray 02/08/25 09:31 IMPRESSION: No acute findings. Chest/Abdomen/Pelvis CT 02/08/25 16:20 IMPRESSION: 1. Directed exam as above demonstrating no acute surgical abnormality. Mild strandy changes about the large intestine could be associated with developing inflammatory or infectious colitis. 2. Mild thickening of the urinary bladder wall may be present. 3. Several other chronic findings as above. Labs Labs: Laboratory Results - last 24 hr 02/10/25 02/10/25 02/10/25 16:20 17:45 20:57 WBC RBC Hgb Hct MCV MCH MCHC RDW Plt Count MPV Sodium 139 Potassium 3.6 Chloride 106 Carbon Dioxide 24 Anion Gap 9 BUN 25 H Creatinine 0.79 Estim Creat Clear Calc 46 Estimated GFR > 60 Glucose 330 H POC Capillary Glucose 336 H 302 H Calcium 9.6 Magnesium Total Bilirubin AST ALT Alkaline Phosphatase Total Protein Albumin 02/10/25 02/11/25 02/11/25 23:17 04:48 06:52 WBC 7.6 RBC 5.07 Hgb 15.6 H Hct 47.3 H MCV 93.3 MCH 30.8 MCHC 33.0 RDW 14.2 Plt Count 147 L MPV 11.8 H Sodium 138 Potassium 3.2 L Chloride 103 Carbon Dioxide 28 Anion Gap 7 BUN 17 Creatinine 0.64 L Estim Creat Clear Calc 56 Estimated GFR > 60 Glucose 91 POC Capillary Glucose 161 H 82 Calcium 10.1 Magnesium 1.3 L Total Bilirubin 0.9 AST 21 ALT 18 Alkaline Phosphatase 64 Total Protein 7.2 Albumin 3.8 02/11/25 02/11/25 07:43 11:40 WBC RBC Hgb Hct MCV MCH MCHC RDW Plt Count MPV Sodium Potassium Chloride Carbon Dioxide Anion Gap BUN Creatinine Estim Creat Clear Calc Estimated GFR Glucose POC Capillary Glucose 81 156 H Calcium Magnesium Total Bilirubin AST ALT Alkaline Phosphatase Total Protein Albumin
[2025-02-11] MEDS: ACETAMINOPHEN 325 MG TABLET 650 MG PO (16:22)
[2025-02-11] MEDS: ROSUVASTATIN 10 MG TABLET PO (17:27)
[2025-02-11] MEDS: ASPIRIN 81 MG CHEWABLE TABLET PO (17:27)
[2025-02-11 21:40] VITALS: BP 121/71; PULSE 86; RESP 22; TEMP 36.3; O2SAT 98
[2025-02-11] MEDS: INSULIN GLARGINE (*BKC) 100 UNITS/ML 45 UNITS SUB-Q (22:06)
[2025-02-12] MEDS: PIPERACILLIN/TAZOBACTAM SOD 2.25 GM in SODIUM CHLORIDE 0.9% IV 50 ML 100 ML IVPB ×3 (00:35→11:33)
[2025-02-12 04:02] VITALS: BP 124/61; PULSE 62; RESP 18; TEMP 37.2; O2SAT 95
[2025-02-12 06:46] LABS: Hematocrit 49.0 % (37.0-47.0); Hemoglobin 15.1 g/dL (12.0-15.0); Mean Corpuscular HGB Conc 30.8 g/dl (32-36); Mean Corpuscular Hemoglobin 30.2 pg (26-34); Mean Corpuscular Volume 98.0 fl (80-100); Platelet Count Result 135 k/mm3 (150-375); Red Blood Count 5.00 M/mm3 (4.2-5.4); White Blood Count 8.7 K/mm3 (4.5-10.0)
[2025-02-12 07:09] LABS: Alanine Aminotransferase 14 U/L (6-35); Albumin Level 3.4 g/dL (3.5-5.1); Alkaline Phosphatase 66 U/L (38-126); Anion Gap 7 mmol/L (4-12); Aspartate Amino Transferase 20 U/L (14-36); Bilirubin,Total 0.9 mg/dL (0.2-1.3); Blood Urea Nitrogen 15 mg/dL (7-17); Calcium 9.4 mg/dL (8.4-10.2); Carbon Dioxide 26 mmol/L (22-30); Chloride 101 mmol/L (98-107); Estimated CRCL calculation 60 ml/min; Estimated Glomerular Filt Rate > 60; Glucose 60 mg/dL (65-110); Magnesium 2.3 mg/dL (1.6-2.3); Potassium 3.9 mmol/L (3.4-5.0); Sodium 134 mmol/L (137-145); Total Protein 6.7 g/dL (6.3-8.2)
[2025-02-12] MEDS: EMPAGLIFLOZIN 10 MG TABLET PO (08:00)
[2025-02-12] MEDS: DIVALPROEX SODIUM DR 125 MG TABEC PO ×2 (08:00→17:30)
[2025-02-12] MEDS: MEMANTINE 10 MG TABLET PO ×2 (08:00→17:30)
[2025-02-12] MEDS: ENOXAPARIN 40 MG/0.4 ML SYRINGE SUB-Q (08:00)
[2025-02-12] MEDS: ACETAMINOPHEN 325 MG TABLET 650 MG PO (08:35)
[2025-02-12] MEDS: INSULIN ASPART (*BKC) 100 UNITS/ML SUB-Q ×2 (11:40→11:41)
--- NOTE | 2025-02-12 11:56 | P.CDI_ITS ---
CDI Query Clarification Request BMI: 21.5 Nutritional Diagnostic Statement: Please refer to the comprehensive nutrition assessment for further information. If you agree with diagnosis of Severe Protein Calorie Malnutrition as related to inadequate protein-energy intake with increased protein-energy needs in setting of chronic disease as evidenced by minimal oral intake for > 1-2 months; significant weight loss of 29% (45 ibs) in 4 months; moderate subcutaneous fat loss (temporalis) and moderate muscle wasting(orbital fat pads). Please specify severity if known: * Mild * Moderate * Severe * Other/Unknown <Peace Barber RN - Last Filed: 02/12/25 11:56> Clarified Diagnosis Clarified Diagnosis: Severe protein calorie malnutrition <Maria Guadalupe Mesa MD - Last Filed: 02/13/25 08:45>
--- NOTE | 2025-02-12 12:01 | PCNFU ---
Nutrition Follow-Up Complete: Severe Protein Calorie Malnutrition as related to inadequate protein-energy intake with increased protein-energy needs in setting of chronic disease as evidenced by minimal oral intake for > 1-2 months; significant weight loss of 29% (45 ibs) in 4 months; moderate subcutaneous fat loss (temporalis) and moderate muscle wasting(orbital fat pads). Goal:Meet estimated nutritional needs Pt current nutrition is Diabetic, pureed level 4, level 2 thickened liquids, Glucerna shakes TID, thrive nutrition ice cream TID. Nutrition recommendation: continue with current plan of care Last recorded weight is 60.3 kg. Bowel Motility: +BM 02/12 Labs Reviewed:Hgb:15.1, HCT:49, Alb:3.4, Na:134, Cr:0.6, A1C:14% Meds Noted: lantus, novolog, jardiance, lovenox Skin: WNL Additional Notes: Pt on a diabetic, pureed diet, level 2 thickened liquids. Intake 50% most meals. Pt also receiving glucerna shakes TID and nutrition ice cream cups TID. Encourage po intake of meals and supplements. Agree with orders. Will monitor weight, ,labs, skin, diet orders, labs every 5 days.
--- NOTE | 2025-02-12 14:35 | P.PNIM_ITS ---
Progress Note: A&P Assessment and Plan (1) DKA (diabetic ketoacidosis): Code(s): E11.10 - Type 2 diabetes mellitus with ketoacidosis without coma Status: Acute Assessment and Plan: Pt was given IVF bolus and has been started on started on infusion Insulin infusion started and Q1H glucose monitoring is being done Serial labs ordered Replace electrolytes as needed Consult dietitian and rn diabetes educator -patient was transitioned to long-acting insulin and sliding scale insulin overnight, -Hemoglobin A1c is 14.0 this admission Assuming care on 02/10/2025: In spite of being started on Lantus, blood sugars elevated over 300, will start lispro 5 units t.i.d. with meals. Continue to monitor Accu-Cheks. 02/11/2025: Continue current management, blood sugars reviewed and better. 02/12/2025: Blood sugars at goal, continue current management, patient is eating. (2) CAD (coronary artery disease): Code(s): I25.10 - Atherosclerotic heart disease of [place] coronary artery without angina pectoris Status: Acute Assessment and Plan: Will resume aspirin Blood pressure review, 02/12/2025: Blood pressure normal, hold [employer] enalapril. (3) PAF (paroxysmal atrial fibrillation): Code(s): I48.0 - Paroxysmal atrial fibrillation Status: Acute Assessment and Plan: Sinus rhythm, continue to monitor (4) ROANLD (acute kidney injury): Code(s): N17.9 - Acute kidney failure, unspecified Status: Resolved Assessment and Plan: RONALD likely secondary to DKA and hypovolemia, creatinine on admission was 1.27 Patient received adequate IV fluids Urine electrolytes not prerenal Creatinine has normalized to 0.80 -continue to monitor urine output, renal function and electrolytes Hypokalemia and hypo magnesium resolved status post replacement. (5) Metabolic encephalopathy: Code(s): G93.41 - Metabolic encephalopathy Status: Acute Assessment and Plan: Head CT was negative TSH was neg Resolved (6) Abdominal pain: Code(s): R10.9 - Unspecified abdominal pain Status: Inactive Assessment and Plan: Patient unable to provide any meaningful history. Appears tender on abdominal exam. LFTs were unremarkable Will check abdominal CT and lipase level -lipase is normal -CT scan of the abdomen and pelvis showed possible inflammatory or infectious colitis, started on Zosyn (02/09) 02/08: CT scan of the abdomen and pelvis 1. Directed exam as above demonstrating no acute surgical abnormality. Mild strandy changes about the large intestine could be associated with developing inflammatory or infectious colitis. 2. Mild thickening of the urinary bladder wall may be present. 3. Several other chronic findings as above. Continue antibiotics for 5 days total. No more abdominal pain. Plan DVT prophylaxis -Lovenox Stress ulcer prophylaxis: Not indicated as patient is on a diet Nutrition - diabetic diet, multiple speech evaluations was completed, soft diet. Patient's family met with hospice, display discharged on 02/13/2025 home with hospice. DNR Subjective Date/time seen: 02/12/25 14:35 Interval history: No acute overnight events. Patient appears to be at her baseline. Pleasant and cooperative, confused. Review of Systems Review of Systems: All systems reviewed & are unremarkable except as noted in HPI and below (Subjective) Exam Narrative: General: Old frail female who is awake but confused Lungs/Chest: Trachea central Clear BS B/L, No crackles or wheezing. Cardiac: RRR. Normal S1 S2. No murmurs Circulation: Pedal pulses are intact and symmetrical. Abdomen: Normal bowel sounds. Obese. Soft. She grimaces on abdominal exam Extremities: No clubbing, cyanosis or edema. Warm : Ulloa in place Neurologic: Follows commands with both hands and opens her mouth on exam. Moves all 4 extremities PERRL AOx 0 Skin: No Rash Objective Data Vital Signs Vital Signs: Vital Signs - 24 hr 02/11/25 15:46 02/11/25 20:00 02/11/25 21:40 Temperature 97.4 F L 97.3 F L Pulse Rate 84 86 Respiratory Rate 17 22 H Blood Pressure 143/74 H 121/71 Pulse Oximetry 100 98 Oxygen Delivery Room Air 02/12/25 04:02 02/12/25 09:30 Temperature 99.0 F Pulse Rate 62 Respiratory Rate 18 Blood Pressure 124/61 Pulse Oximetry 95 Oxygen Delivery Room Air Intake/Output Intake/Output: Intake & Output 02/09/25 02/10/25 02/11/25 02/12/25 23:59 23:59 23:59 23:59 Intake Total 2160 1989 169 1130 Output Total 925 Balance 1235 1989 169 1130 Meds/Results Medications: Active Medications Generic Name Dose Route Start Last Admin Trade Name Freq PRN Reason Stop Dose Admin Acetaminophen 650 mg 02/08/25 11:27 02/12/25 08:35 Acetaminophen 325 Mg Tablet PO 650 mg Q4H PRN Administration Mild Pain (1-3) or Fever Amoxicillin/Clavulanate Potassium 1 tablet 02/12/25 19:00 Amoxicillin/Clavulanate K 875-125 Mg Tab PO 02/13/25 21:01 Q12HR JANETTE Aspirin 81 mg 02/09/25 18:00 02/11/25 17:27 Aspirin 81 Mg Chewable Tablet PO 81 mg QPM JANETTE Administration Dextrose 12.5 gm 02/08/25 10:04 Dextrose 50% 25 Gm/50 Ml Syringe IV PUSH PRN PRN Hypoglycemia Protocol Divalproex Sodium 125 mg 02/09/25 17:00 02/12/25 08:[address] 125 Mg Tabec PO 125 mg BID JANETTE Administration Empagliflozin 10 mg 02/10/25 09:00 02/12/25 08:00 Empagliflozin 10 Mg Tablet PO 10 mg DAILY JANETTE Administration Enoxaparin Sodium 40 mg 02/09/25 09:00 02/12/25 08:00 Enoxaparin 40 Mg/0.4 Ml Syringe SUB-Q 40 mg DAILY JANETTE Administration Glucagon 1 mg 02/08/25 10:04 Glucagon For Inj 1 Mg Vial IM PRN PRN Hypoglycemia Protocol Glucose 15 gm 02/08/25 10:04 Glucose Oral Gel 15 Gm Of Glucse In 37.5 Gm Tube PO PRN PRN Hypoglycemia Protocol Hydralazine HCl 10 mg 02/09/25 08:04 Hydralazine Hcl 20 Mg/Ml Vial IV PUSH Q4H PRN Blood Pressure - High Dextrose 1,000 mls @ 100 mls/hr 02/08/25 10:04 Dextrose 5% 1,000 Ml IVPB PRN PRN Hypoglycemia Protocol Insulin Aspart 3 - 6 units 02/09/25 01:00 02/12/25 11:41 Insulin Aspart (*Bkc) 100 Units/Ml SUB-Q 3 units Q4HR JANETTE Administration Protocol Insulin Aspart 5 units 02/10/25 17:15 02/12/25 11:40 Insulin Aspart (*Bkc) 100 Units/Ml 0.083 units/kg (5 units) 5 units SUB-Q Administration TIDWM [facility] Insulin Glargine 45 units 02/08/25 23:10 02/11/25 22:06 Insulin Glargine (*Bkc) 100 Units/Ml SUB-Q 45 units HS JANETTE Administration Memantine 10 mg 02/09/25 17:00 02/12/25 08:00 Memantine 10 Mg Tablet PO 10 mg BID JANETTE Administration Paroxetine HCl 30 mg 02/10/25 09:00 02/12/25 08:00 Paroxetine 10 Mg Tablet PO 30 mg DAILY JANETTE Administration Rosuvastatin Calcium 10 mg 02/09/25 18:00 02/11/25 17:27 Rosuvastatin 10 Mg Tablet PO 10 mg QPM JANETTE Administration Trazodone HCl 50 mg 02/09/25 21:00 02/11/25 22:06 Trazodone Hcl 50 Mg Tablet PO 50 mg QHS JANETTE Administration Radiology Results: ITS Impressions Head CT 02/08/25 09:21 Impression: 1. Limited study. No acute infarct or hemorrhage Chest X-Ray 02/08/25 09:31 IMPRESSION: No acute findings. Chest/Abdomen/Pelvis CT 02/08/25 16:20 IMPRESSION: 1. Directed exam as above demonstrating no acute surgical abnormality. Mild strandy changes about the large intestine could be associated with developing inflammatory or infectious colitis. 2. Mild thickening of the urinary bladder wall may be present. 3. Several other chronic findings as above. Labs Labs: Laboratory Results - last 24 hr 02/11/25 02/11/25 02/12/25 16:38 21:43 00:42 WBC RBC Hgb Hct MCV MCH MCHC RDW Plt Count MPV Sodium Potassium Chloride Carbon Dioxide Anion Gap BUN Creatinine Estim Creat Clear Calc Estimated GFR Glucose POC Capillary Glucose 162 H 182 H 128 H Calcium Magnesium Total Bilirubin AST ALT Alkaline Phosphatase Total Protein Albumin 02/12/25 02/12/25 02/12/25 04:04 05:47 07:29 WBC 8.7 RBC 5.00 Hgb 15.1 H Hct 49.0 H MCV 98.0 D MCH 30.2 MCHC 30.8 L RDW 14.1 Plt Count 135 L MPV 12.0 H Sodium 134 L Potassium 3.9 Chloride 101 Carbon Dioxide 26 Anion Gap 7 BUN 15 Creatinine 0.60 L Estim Creat Clear Calc 60 Estimated GFR > 60 Glucose 60 L POC Capillary Glucose 125 H 96 Calcium 9.4 Magnesium 2.3 Total Bilirubin 0.9 AST 20 ALT 14 Alkaline Phosphatase 66 Total Protein 6.7 Albumin 3.4 L 02/12/25 11:34 WBC RBC Hgb Hct MCV MCH MCHC RDW Plt Count MPV Sodium Potassium Chloride Carbon Dioxide Anion Gap BUN Creatinine Estim Creat Clear Calc Estimated GFR Glucose POC Capillary Glucose 201 H Calcium Magnesium Total Bilirubin AST ALT Alkaline Phosphatase Total Protein Albumin
[2025-02-12 14:45] VITALS: BP 108/55; PULSE 72; RESP 17; TEMP 36.4; O2SAT 98
[2025-02-12] MEDS: ASPIRIN 81 MG CHEWABLE TABLET PO (18:49)
[2025-02-12] MEDS: ROSUVASTATIN 10 MG TABLET PO (18:49)
[2025-02-12 20:15] VITALS: BP 129/68; PULSE 88; RESP 18; TEMP 36.6; O2SAT 94
[2025-02-12] MEDS: INSULIN GLARGINE (*BKC) 100 UNITS/ML 45 UNITS SUB-Q (20:42)
[2025-02-13 04:24] VITALS: BP 111/87; PULSE 71; RESP 18; TEMP 36.3; O2SAT 97
--- NOTE | 2025-02-13 08:28 | PC.NURSE ---
RN gave update via telephone to patient's daughter Marilynn on patient status.
--- NOTE | 2025-02-13 08:45 | P.DS_ITS ---
DS: Admitting Diagnosis Discharge Date 02/13/2025 Admitting Diagnosis DKA DS: Discharge Diagnosis Discharge Diagnosis (1) DKA (diabetic ketoacidosis): Code(s): E11.10 - Type 2 diabetes mellitus with ketoacidosis without coma Status: Acute (2) Colitis: Code(s): K52.9 - Noninfective gastroenteritis and colitis, unspecified Status: Acute DS: Summary Hospital Course Hospital Course: 79-year-old female with history of CHF, CAD status post CABG, paroxysmal atrial fibrillation, insulin-dependent diabetes mellitus, history of CVA, essential hypertension, hyperlipidemia, diabetic neuropathy presents to [facility] with acute altered mental status superimposed on dementia. Unfortunately the patient was the night able to get her insulin for a few weeks due to financial difficulties. Diagnosed with DKA in the ER. Acidotic. Workers Compensation Analyst consulted. Started on DKA protocol. ----- DKA resolved. Abdominal pain resolved. Received Zosyn, transition to Augment in. Receiving insulin. Family has decided to take the patient home with hospice. She is discharged in stable condition on 02/13/2025. The patient was DNR. Presented with acute kidney injury likely secondary to DKA and hypovolemia, resolved. Metabolic encephalopathy likely due to DKA and or colitis, resolved. Back to her baseline, pleasantly confused. Time Spent with Patient Time attestation: Total time spent providing and/or coordinating discharge services: Time spent: Greater than 30 minutes Exam Narrative: General: Old frail female who is awake but confused Lungs/Chest: Trachea central Clear BS B/L, No crackles or wheezing. Cardiac: RRR. Normal S1 S2. No murmurs Circulation: Pedal pulses are intact and symmetrical. Abdomen: Normal bowel sounds. Obese. Soft. No tenderness to palpation Extremities: No clubbing, cyanosis or edema. Warm : Ulloa in place Neurologic: Follows commands with both hands and opens her mouth on exam. Moves all 4 extremities spontaneously A&O x1 Skin: No Rash DS: Data Data Completed and Pending Labs on day of discharge: Labs from last 24 hours 02/13/25 02/12/25 02/12/25 07:47 23:09 20:17 POC Capillary Glucose 106 H 165 H 187 H 02/12/25 02/12/25 16:57 11:34 POC Capillary Glucose 157 H 201 H Discharge Plan Discharge Attending physician on discharge: Maria Guadalupe Mesa Consulting providers: Guanaco Mccoy Discharging Clinician: Maria Guadalupe Mesa Patient Disposition: Hospice - Home Activity: may shower Diet: as tolerated Patient Language: Icelandic Stand Alone Forms: General Discharge Information Discharge Medications: New amoxicillin-pot clavulanate 875-125 mg tablet 1 tablet PO Q12H Qty: 2 0RF insulin glargine [Lantus U-100 Insulin] 100 unit/mL Solution 45 unit subcut HS Qty: 10 0RF Continued (DME) FreeStyle Haritha 3 [place] Misc See Rx Instructions .Route Qty: 2 1RF Rx Instructions: As directed rosuvastatin 10 mg tablet 10 mg PO QPM Qty: 90 3RF paroxetine HCl 20 mg tablet 30 mg PO DAILY Qty: 135 2RF trazodone 50 mg tablet 50 mg PO QHS Qty: 90 3RF memantine 10 mg tablet 10 mg PO BID Qty: 180 2RF insulin aspart U-100 [Novolog FlexPen U-100 Insulin] 100 unit/mL (3 mL) insulin pen 6 unit subcut TIDWM Qty: 15 0RF aspirin 81 mg tablet,chewable 81 mg PO QPM Qty: 90 2RF acetaminophen 500 mg tablet 1,000 mg PO TID PRN (Reason: arabella) 7 Days Qty: 42 0RF Gvoke HypoPen 1-Pack 1 mg/0.2 mL auto-injector 1 mg SUBCUT PRN PRN (Reason: blood sugar less than 60 unable to swallow) dextrose [Glucose Gel] 40 % gel 20 g PO Q15M PRN (Reason: hypoglycemia) Rx Instructions: until symptoms of low blood sugar are controlled blood sugar greater than 60 divalproex [Depakote] 125 mg tablet,delayed release (DR/EC) 125 mg PO BID Qty: 60 3RF (DME) pen needle, diabetic [BD Ultra-Fine Short Pen Needle] 31 gauge x 5/16 needle See Rx Instructions .Route Qty: 400 3RF Rx Instructions: inject qac and qhs Jardiance 10 mg tablet 10 mg PO DAILY Qty: 30 0RF (DME) FreeStyle Haritha 3 Plus Sensor Device See Rx Instructions .Route Qty: 1 6RF Rx Instructions: As directed Discontinued enalapril maleate 10 mg tablet 10 mg PO DAILY Qty: 90 1RF Date of admission: 02/09/25 09:35 Primary Care Provider: Apolinar Paredes Admitting Provider: Maria Guadalupe Mesa Attending physician on admission: Maria Guadalupe Mesa Condition: Improved Hospitalist MIPS Heart Failure (Exclusion) Patient has history of Heart Transplant or Left Ventricular Assistive Device?: No IF YES, STOP HERE Heart Failure (Qualifier) Patient has current or prior documentation of LVEF less than or equal to 40%, or mod/servere depressed LVSF?: No IF NO, STOP HERE
[2025-02-13] MEDS: DIVALPROEX SODIUM DR 125 MG TABEC PO (09:30)
[2025-02-13] MEDS: EMPAGLIFLOZIN 10 MG TABLET PO (09:30)
[2025-02-13] MEDS: MEMANTINE 10 MG TABLET PO (09:30)
[2025-02-13] MEDS: INSULIN ASPART (*BKC) 100 UNITS/ML SUB-Q ×2 (12:28→12:29)
--- NOTE | 2025-02-14 14:16 | PCCDE ---
02/14/25: DM Educator courtesy follow up call placed: Spoke with daughter Mary Pt DC'd home on hospice care. Mary reports nurse was out this morning to see her mother and that she advised pt will be out TIW. Mary has not yet picked up Insulin prescribed, reports to be paid Wednesday. She states to having strips to check mom BG. + refrigeration restored. - Enc'd Mary to reach out to pharmacy to identify insurance coverage and likely negligible co-pay for insulin. - Educ re: importance of insulin as Rx'd. - Reviewed longevity of Lantus at room temperature (28 days) (in case they lose electricity again) - Mary has my call back number.
== END 2025-02-13 13:10 | disposition hospice, home (50) | DRG 637 ==
LOC: ANHED 08:43 → ANHICU 11:48 → ANH3MEDSUR 02-09 22:47
PROVIDERS: Internal Medicine; Admitting Provider General Practice; Emergency Provider Student in an Organized Health Care Education/Training Program; PCP Family Medicine; Visit Provider General Practice
DX: E11.10 Type 2 diabetes mellitus with ketoacidosis without coma (principal); E43 Unspecified severe protein-calorie malnutrition; G93.41 Metabolic encephalopathy; N17.9 Acute kidney failure, unspecified; I50.32 Chronic diastolic (congestive) heart failure; T38.3X6A Underdosing of insulin and oral hypoglycemic [antidiabetic] drugs, initial encounter; E11.42 Type 2 diabetes mellitus with diabetic polyneuropathy; E11.319 Type 2 diabetes mellitus with unspecified diabetic retinopathy without macular edema; E78.5 Hyperlipidemia, unspecified; F03.90 Unspecified dementia, unspecified severity, without behavioral disturbance, psychotic disturbance, mood disturbance, and anxiety; I11.0 Hypertensive heart disease with heart failure; I25.2 Old myocardial infarction; I25.10 Atherosclerotic heart disease of native coronary artery without angina pectoris; I48.0 Paroxysmal atrial fibrillation; I25.5 Ischemic cardiomyopathy; K52.9 Noninfective gastroenteritis and colitis, unspecified; Z66 Do not resuscitate; Z95.1 Presence of aortocoronary bypass graft; Z86.73 Personal history of transient ischemic attack (TIA), and cerebral infarction without residual deficits; Z87.891 Personal history of nicotine dependence; Z79.82 Long term (current) use of aspirin; Z20.822 Contact with and (suspected) exposure to COVID-19; Z79.4 Long term (current) use of insulin; Z79.84 Long term (current) use of oral hypoglycemic drugs; Z91.141 Patient's other noncompliance with medication regimen due to financial hardship; Z68.21 Body mass index [BMI] 21.0-21.9, adult
CPT/HCPCS: 36415; 70450; 71046; 71250; 74176; 80048; 80053; 80143; 80179; 80307; 81001; 82010; 82077; 82140; 82274; 82550; 82570; 82803; 82948; 83036; 83690; 83735; 83880; 84100; 84300; 84443; 84484; 85025; 85027; 85610; 85730; 87493; 87637; 87641; 92507; 92526; 92610; 93005; 96361; 96366; 96375; 96376; 97110; 97161; 97166; 97530; 99285; A9270; G0378; J0612; J1650; J1815; J2359; J2543; J3475; J3480; J7030; J7040; J7120